=== PATIENT | male | born 1985 | race Caucasian/White ===

== ENCOUNTER 2016-06-18 20:44 | Observation (INO) | payer MEDICAID, OTHER ==
[~2016-06-18] VITALS: Ht 177.8 cm; Wt 85.3 kg
[~2016-06-18 20:44] MED LIST: ACHD5005 PO; AGM875T PO; AMOX500C2 PO; CEPH-38 PO; CLN.1T PO; CYCL10TA9 PO; DICL50TA4 PO; DOXY100C2 PO; DULO60CA6 PO; GABA-486 PO; GABA-488 PO; GABA300C PO; GABA600T2 PO; GABA800T PO; GABA800T2 PO; HUM100VI8; HYDR-757 PO; HYDR118S10 PO; INSASP10V SC; INSASP10V SQ; INSU100C; INSU100I14 SQ; INSU100V13 SC; INSU100V5 SQ; INSU100V6; INSU100V6 SQ; LEVE1U SQ; LEVO750T9 PO; LISI2.5T PO; METF-380 PO; MRTZ15T PO; MTF500T; MTF500T PO; NAPR-243 PO; NAPR500T PO; NAPR500T3 PO; NAPR550T PO; Oseltamivir Phosphate PO; POLY119P5 PO; SULF1TAB35 PO; SULF1TAB38 PO; TRAM-21 PO
--- OUTSIDE RECORDS SUMMARY | 2016-06-18 20:51 | XMS REPORT | Continuity of Care Document ---
Author Author Interface Organization Interface Address Unknown Phone Unavailable Problems Problem Status Onset Date Classification Date Reported Comments Source No data available for this section Problem 05/07/2016 spotflux Medications Medication Details Route Status Patient Instructions Ordering Provider Order Date Source Allergies, Adverse Reactions, Alerts Substance Category Reaction Severity Reaction type Status Date Reported Comments Source Tramadol Assertion Drug allergy [facility]. Immunizations Immunization Date Given Site Status Last Updated Comments Source No data available for this section No data available for this section [facility]. Results Order Name Results Value Reference Range Date Interpretation Comments Source Vital Signs Vital Sign Value Date Comments Source Encounters Location Location Details Encounter Type Encounter Number Reason For Visit Attending Provider ADM Date DC Date Status Source [facility] [id number] Emergency [id number] Madyson Carias 05/02/2016 Active [facility], [facility], [facility]. Emergency [id number] Gwendolyn Atkinson 05/02/2016 05/04/2016 [facility] Procedures Procedure Code Date Perfomer Comments Source No data available for this section [facility].
[2016-06-18] MEDS ORDERED: NS IV 1000 ML 1,000 ML IV SCH (21:30)
--- NOTE | 2016-06-18 21:35 | ED Abdominal Pain ---
General Chief Complaint: Abdominal/GI Problems Stated Complaint: DIARRHEA WITH BLOOD, FEVER Nursing Triage Note: PT TO ED 6 W/ C/O ABD PAIN ONSET X2-3 DAYS. REPORTS HAD BLOODY DIARRHEA X3 DAYS AGO ET HAS NOT HAD A BM SINCE. ALSO C/O N/V. Sepsis Screen: No Definite Risk Source of Information: Patient Exam Limitations: No Limitations History of Present Illness Time Seen By Provider: 21:34 Initial Comments To ER with reports of left-sided abdominal pain for 2-3 days. 2 days ago he finished a 2 day episode of bloody diarrhea. He's had no bowel movement since then. He is also had nausea and vomiting. He is an insulin-requiring diabetic but has not been checking his blood sugars and has only been giving himself insulin intermittently. Timing/Duration: 3-4 Days Severity/Quality: Cramping Location: LUQ, LLQ Radiation: No Radiation Activities at Onset: None Associated Symptoms: Nausea/Vomiting Allergies and Home Medications Allergies Coded Allergies: tramadol (Verified Adverse Reaction, Mild, N/V, 12/21/14) Home Medications Cyclobenzaprine HCl 10 Mg Tablet #30 10 MG PO Q8H PRN PRN back pain Prescribed by: YAMILETH CORMIER on 02/27/16 1230 Diclofenac Potassium 50 Mg Tablet #30 50 MG PO Q6H PRN PRN PAIN Prescribed by: YAMILETH CORMIER on 02/27/16 1230 Gabapentin 800 Mg Tablet 800 MG PO TID (Reported) Insulin Aspart 300 Units/3 Ml Solution #1 20 UNITS SQ AC WILL HOLD IF BS IS 140 OR BELOW Prescribed by: WESTON DOTY on 02/07/16 1408 Insulin Detemir 100 U/Ml Vial 42 UNITS SQ HS (Reported) Naproxen 500 Mg Tablet 500 MG PO BID PRN PRN PAIN (Reported) Polyethylene Glycol 3350 119 Gm Powder #1 17 GM PO HS Prescribed by: TOAN HERNADEZ on 03/04/16 6857 Review of Systems Constitutional: see HPI EENTM: No Symptoms Reported Respiratory: No Symptoms Reported Gastrointestinal: See HPI Abdominal Pain Diarrhea Nausea Vomiting Genitourinary: No Symptoms Reported Musculoskeletal: no symptoms reported Skin: no symptoms reported Psychiatric/Neurological: No Symptoms Reported Past Butpwun-Ajzkeh-Sxlskn Hx Patient Social History Alcohol Use: Denies Use Recreational Drug Use: Yes (MARIJUANA, METH) Drug of Choice: WEED- DENIES USING ANYTHING OTHER THAN WEED AT THIS TIME Smoking Status: Current Everyday Smoker Type Used: Cigarettes Former Smoker/When Quit: Recent Foreign Travel: No Contact w/Someone Who Travel: No Recent Infectious Disease Expo: No Recent Hopitalizations: No Physical Abuse Screen: No Sexual Abuse: No Immunizations Up To Date Tetanus Booster (TDap): Unknown Date of Pneumonia Vaccine: Aug 27, 2011 Date of Influenza Vaccine: May 21, 2014 Seasonal Allergies Seasonal Allergies: No Surgeries HX Surgeries: No Respiratory Hx Respiratory Disorders: No Cardiovascular Hx Cardiac Disorders: Yes Cardiac Disorders: Hypertension Neurological Hx Neurological Disorders: Yes Neurological Disorders: Neuropathy Reproductive System Hx Reproductive Disorders: No Sexually Transmitted Disease: No HIV/AIDS: No Genitourinary Hx Genitourinary Disorders: No (HAS INFREQUENT URINATION) Gastrointestinal Hx Gastrointestinal Disorders: Yes (ABD SWELLING, ELEVATED LIVER ENZYMES) Musculoskeletal Hx Musculoskeletal Disorders: Yes Musculoskeletal Disorders: Arthritis, Scoliosis, Chronic Back Pain Endocrine Hx Endocrine Disorders: Yes (EXTREME NON-COMPLIANCE, MULTIPLE EPISODES OF DKA) Endocrine Disorders: Diabetes, Insulin dep HEENT HX ENT Disorders: Yes (POOR DENTITION, DENTAL ABSCESSES) Hearing Impairment: Denies Cancer Hx Cancer: No Psychosocial Hx Psychiatric Problems: Yes (POLYSUBSTANCE ABUSE) Behavioral Health Disorders: Depression Integumentary HX Skin/Integumentary Disorder: No Blood Transfusions Hx Blood Disorders: No Adverse Reaction to a Blood Tr: No Family Medical History Significant Family History: No Pertinent Family Hx Family Medial History: Alcoholism 19 FATHER G8 BROTHER Congenital heart disease 19 FATHER Family history: Cardiovascular disease 19 FATHER, Onset:40's - 50 Family history: Diabetes mellitus 19 MOTHER Family history: Hypertension 19 FATHER Heart disease 19 FATHER History of - respiratory disease 19 FATHER History of drug abuse 19 MOTHER Hypercholesterolemia 19 FATHER Myocardial infarction 19 FATHER Seizure disorder 19 FATHER No Family History of: Abdominal aortic aneurysm Markos's disease Cancer Congestive heart failure Cystic fibrosis Dementia Dysphagia Family history: Allergy Family history: Alzheimer's disease Family history: Arthritis Family history: Asthma Family history: Breast disease Family history: Coronary thrombosis Family history: Gastrointestinal disease Family history: Glaucoma Family history: Osteoporosis Family history: Thyroid disorder Headache Hearing loss Hereditary disease History of - anemia History of - disorder Human immunodeficiency virus (HIV) seropositivity Infertile Kidney disease Malignant neoplasm of lung Parkinson's disease Prostate cancer Psychotic disorder Stroke Tuberculosis Visual impairment Physical Exam Vital Signs VS - Last 72 Hours, by Label 06/18/16 21:15 Temp 98.3 Pulse 112 Resp 20 B/P 128/92 Pulse Ox 98 O2 Delivery Room Air Capillary Refill : Less Than 3 Seconds General Appearance: WD/WN no apparent distress HEENT: PERRL/EOMI normal ENT inspection Neck: non-tender full range of motion Respiratory: no respiratory distress no accessory muscle use Gastrointestinal: normal bowel sounds non tender soft Extremities: normal range of motion non-tender Neurologic/Psychiatric: alert normal mood/affect oriented x 3 Skin: normal color warm/dry Progress/Results/Core Measures Results/Orders Lab Results Laboratory Tests Test 06/18/16 21:31 06/18/16 21:33 06/18/16 21:53 Range/Units Alanine Aminotransferase (ALT/SGPT) 19 0-55 U/L Albumin 3.6 3.2-4.5 G/DL Alkaline Phosphatase 106 40-136 U/L Anion Gap 18 H 5-14 MMOL/L Aspartate Amino Transf (AST/SGOT) 11 5-34 U/L BUN/Creatinine Ratio 11 Basophils # (Auto) 0.0 0.0-0.1 10^3/uL Basophils (%) (Auto) 0 0-10 % Blood Urea Nitrogen 16 7-18 MG/DL Calcium Level 8.3 L 8.5-10.1 MG/DL Carbon Dioxide Level 15 L 21-32 MMOL/L Chloride Level 96 L 98-107 MMOL/L Creatinine 1.44 H 0.60-1.30 MG/DL Eosinophils # (Auto) 0.1 0.0-0.3 10^3/uL Eosinophils (%) (Auto) 1 0-10 % Estimat Glomerular Filtration Rate 58 Glucose Level 694 *H 70-105 MG/DL Hematocrit 38 L 40-54 % Hemoglobin 13.3 13.3-17.7 G/DL Lymphocytes # (Auto) 1.7 1.0-4.0 X 10^3 Lymphocytes (%) (Auto) 33 12-44 % Mean Corpuscular Hemoglobin 29 25-34 PG Mean Corpuscular Hemoglobin Concent 36 32-36 G/DL Mean Corpuscular Volume 81 80-99 FL Mean Platelet Volume 9.3 7.4-10.4 FL Monocytes # (Auto) 0.5 0.0-1.0 X 10^3 Monocytes (%) (Auto) 10 0-12 % Neutrophils # (Auto) 2.8 1.8-7.8 X 10^3 Neutrophils (%) (Auto) 56 42-75 % Platelet Count 266 130-400 10^3/uL Potassium Level 4.5 3.6-5.0 MMOL/L Red Blood Count 4.63 4.35-5.85 10^6/uL Red Cell Distribution Width 13.1 10.0-14.5 % Sodium Level 129 L 135-145 MMOL/L Total Bilirubin 0.5 0.1-1.0 MG/DL Total Protein 5.7 L 6.4-8.2 G/DL White Blood Count 5.1 4.3-11.0 10^3/uL Glucometer > 600 *H 70-110 MG/DL Ur Tricyclic Antidepressants Screen NEGATIVE NEGATIVE Urine Amphetamines Screen NEGATIVE NEGATIVE Urine Bacteria NONE /HPF Urine Barbiturates Screen NEGATIVE NEGATIVE Urine Benzodiazepines Screen NEGATIVE NEGATIVE Urine Bilirubin NEGATIVE NEGATIVE Urine Cannabinoids Screen NEGATIVE NEGATIVE Urine Casts NONE /LPF Urine Clarity SLIGHTLY CLOUDY Urine Cocaine Screen NEGATIVE NEGATIVE Urine Color YELLOW Urine Crystals NONE /LPF Urine Culture Indicated NO Urine Glucose (UA) 4+ H NEGATIVE Urine Ketones 4+ H NEGATIVE Urine Leukocyte Esterase NEGATIVE NEGATIVE Urine Methadone Screen NEGATIVE NEGATIVE Urine Methamphetamines Screen POSITIVE H NEGATIVE Urine Mucus NEGATIVE /LPF Urine Nitrite NEGATIVE NEGATIVE Urine Opiates Screen NEGATIVE NEGATIVE Urine Oxycodone Screen NEGATIVE NEGATIVE Urine Phencyclidine Screen NEGATIVE NEGATIVE Urine Propoxyphene Screen NEGATIVE NEGATIVE Urine Protein NEGATIVE NEGATIVE Urine RBC NONE /HPF Urine RBC (Auto) NEGATIVE NEGATIVE Urine Specific [place] 1.010 L 1.016-1.022 Urine Squamous Epithelial Cells RARE /HPF Urine Urobilinogen NORMAL NORMAL MG/DL Urine WBC NONE /HPF Urine pH 5 5-9 My Orders Orders-ZACHERY BAKER [employer] Cbc With Automated Diff (06/18/16 21:27) Comprehensive Metabolic Panel (06/18/16 21:27) Saline Lock/Iv-Start (06/18/16 21:27) Ns Iv 1000 Ml (Sodium Chloride 0.9%) (06/18/16 21:30) Ct Abdomen/Pelvis W (06/18/16 21:33) Insulin (Regular) Human (Humulin R (Per (06/18/16 21:45) Ua Culture If Indicated (06/18/16 21:56) Drug Screen Stat (Urine) (06/18/16 21:56) Medications Given in ED Current Medications Medications Dose Ordered Sig/Fer Route Start Time Stop Time Status Last Admin Dose Admin Insulin Human Regular 12 unit ONCE ONCE IV 06/18/16 21:45 06/18/16 21:46 DC 06/18/16 21:41 12 UNIT Iohexol 100 ml ONCE ONCE IV 06/18/16 22:00 06/18/16 22:01 UNV 06/18/16 22:00 100 ML Sodium Chloride 80 ml ONCE ONCE IV 06/18/16 22:00 06/18/16 22:01 UNV 06/18/16 21:59 80 ML Vital Signs/I&O Vital Sign - Last 12Hours 06/18/16 21:15 Temp 98.3 Pulse 112 Resp 20 B/P 128/92 Pulse Ox 98 O2 Delivery Room Air Blood Pressure Mean: 104 Departure Communication Time/Spoke to Admitting Phy: 22:37 Communication I spoke with Dr. Zaida Vee. We'll admit the patient to ICU DKA protocol. Progress Notes After reviewing his distended stomach with no food intake for quite some time I would strongly suspect gastroparesis secondary to diabetes which is not managed. He is requesting pain medication at this time which should be avoided given his recent methamphetamine use and suspect gastroparesis . Impression Impression: Primary Impression: Diabetic ketoacidosis Qualified Code: E13.10 - Other specified diabetes mellitus with ketoacidosis without coma Additional Impressions: Non compliance with medical treatment Illicit drug use Disposition: ADMITTED INPATIENT Condition: Stable Decision to Admit Reason: Admit from ER (General) Decision to Admit/Date: Jun 18, 2016 Time/Decision to Admit Time: 22:19 Departure-Patient Inst. Referrals: [facility] (PCP/Family) Primary Care Physician ZACHERY BAKER APRN Jun 18, 2016 21:35
[2016-06-18] MEDS ORDERED: inSUlin (REGULAR) HUMAN 1 UNIT/0.01 ML (CHARGE PER UNIT) IV ONE (21:45)
[2016-06-18 21:46] LABS: BASOPHILS % (AUTO) 0 % (0-10); EOSINOPHILS # (AUTO) 0.1 10^3/uL (0.0-0.3); EOSINOPHILS % (AUTO) 1 % (0-10); LYMPHOCYTES # (AUTO) 1.7 X 10^3 (1.0-4.0); LYMPHOCYTES % (AUTO) 33 % (12-44); MEAN CORPUSCULAR HEMOGLOBIN 29 PG (25-34); MEAN CORPUSCULAR HGB CONC 36 G/DL (32-36); MEAN CORPUSCULAR VOLUME 81 FL (80-99); MEAN PLATELET VOLUME 9.3 FL (7.4-10.4); MONOCYTES # (AUTO) 0.5 X 10^3 (0.0-1.0); MONOCYTES % (AUTO) 10 % (0-12); NEUTROPHILS # (AUTO) 2.8 X 10^3 (1.8-7.8); NEUTROPHILS % (AUTO) 56 % (42-75); PLATELET COUNT 266 10^3/uL (130-400); RED BLOOD COUNT 4.63 10^6/uL (4.35-5.85); RED CELL DISTRIBUTION WIDTH 13.1 % (10.0-14.5); WHITE BLOOD COUNT 5.1 10^3/uL (4.3-11.0)
[2016-06-18] MEDS ORDERED: NS 100 ML (IVPB) BAG IV ONE (22:00)
[2016-06-18] MEDS ORDERED: IOHEXOL 350 MG/ML 100 ML (OMNIPAQUE 350) VIAL IV ONE (22:00)
[2016-06-18 22:03] LABS: BILIRUBIN,URINE NEGATIVE (NEGATIVE); KETONES,URINE 4+ (NEGATIVE); LEUKOCYTE ESTERASE ,URINE NEGATIVE (NEGATIVE); NITRITE,URINE NEGATIVE (NEGATIVE); PH,URINE 5 (5-9); PROTEIN,URINE NEGATIVE (NEGATIVE); UROBILINOGEN,URINE NORMAL (NORMAL)
[2016-06-18 22:05] LABS: ALBUMIN 3.6 G/DL (3.2-4.5); BILIRUBIN,TOTAL 0.5 MG/DL (0.1-1.0); CALCIUM 8.3 MG/DL (8.5-10.1); CREATININE SERUM 1.44 MG/DL (0.60-1.30); POTASSIUM 4.5 MMOL/L (3.6-5.0); TOTAL PROTEIN 5.7 G/DL (6.4-8.2)
[2016-06-18 22:14] LABS: SQUAMOUS EPITHELIAL CELL,UR RARE /HPF
[2016-06-18] MEDS ORDERED: DEXTROSE 10% IV SOLUTION 1,000 ML IV SCH (23:45)
[2016-06-18] MEDS ORDERED: 1/2 NS W/KCL 20 MEQ/L 1,000 ML IV SCH (23:45)
[2016-06-18] MEDS ORDERED: ACETAMINOPHEN 500 MG TAB (TYLENOL) PO PRN (23:45)
[2016-06-18] MEDS ORDERED: D5 1/2 NS W/KCL 20 MEQ/L 1,000 ML IV SCH (23:45)
[2016-06-18] MEDS ORDERED: REGULAR inSUlin DRIP 250 UNITS/NS 250 ML IV SCH ×2 (23:45)
[2016-06-19] VITALS (18 sets, daily range): BP systolic 93–135; BP diastolic 62–92
[2016-06-19] MEDS ORDERED: NS (IVPB) 100 ML ONE (00:16)
[2016-06-19] MEDS ORDERED: inSUlin (REGULAR) HUMAN 1 UNIT/0.01 ML (CHARGE PER UNIT) ONE ×2 (00:17→08:13)
[2016-06-19] MEDS: KETOROLAC 30 MG/ML VIAL IV PRN ×3 (00:33→15:21)
[2016-06-19 01:16] LABS: ANION GAP 14 MMOL/L (5-14); BLOOD UREA NITROGEN 14 MG/DL (7-18); BUN/CREATININE RATIO 13; CALCIUM 8.1 MG/DL (8.5-10.1); CARBON DIOXIDE 18 MMOL/L (21-32); CHLORIDE 100 MMOL/L (98-107); CREATININE SERUM 1.06 MG/DL (0.60-1.30); GFR ESTIMATED > 60; POTASSIUM 4.1 MMOL/L (3.6-5.0); SODIUM 132 MMOL/L (135-145)
[2016-06-19 01:24] LABS: GLUCOSE 507 MG/DL (70-105)
[2016-06-19] MEDS ORDERED: PREG150C PO (02:29)
[2016-06-19 03:03] LABS: BASOPHILS % (AUTO) 1 % (0-10); EOSINOPHILS # (AUTO) 0.1 10^3/uL (0.0-0.3); EOSINOPHILS % (AUTO) 2 % (0-10); LYMPHOCYTES # (AUTO) 2.4 X 10^3 (1.0-4.0); LYMPHOCYTES % (AUTO) 46 % (12-44); MEAN CORPUSCULAR HEMOGLOBIN 29 PG (25-34); MEAN CORPUSCULAR HGB CONC 36 G/DL (32-36); MEAN CORPUSCULAR VOLUME 81 FL (80-99); MONOCYTES # (AUTO) 0.4 X 10^3 (0.0-1.0); MONOCYTES % (AUTO) 8 % (0-12); NEUTROPHILS # (AUTO) 2.2 X 10^3 (1.8-7.8); NEUTROPHILS % (AUTO) 43 % (42-75); PLATELET COUNT 241 10^3/uL (130-400); RED BLOOD COUNT 4.31 10^6/uL (4.35-5.85); WHITE BLOOD COUNT 5.1 10^3/uL (4.3-11.0)
[2016-06-19 03:29] LABS: ANION GAP 12 MMOL/L (5-14); BLOOD UREA NITROGEN 14 MG/DL (7-18); BUN/CREATININE RATIO 14; CARBON DIOXIDE 18 MMOL/L (21-32); CHLORIDE 104 MMOL/L (98-107); CREATININE SERUM 1.01 MG/DL (0.60-1.30); GFR ESTIMATED > 60; GLUCOSE 374 MG/DL (70-105); MAGNESIUM 1.8 MG/DL (1.8-2.4); PHOSPHORUS 3.5 MG/DL (2.3-4.7); SODIUM 134 MMOL/L (135-145)
[2016-06-19] MEDS ORDERED: KCL 20 MEQ TAB (K-DUR) PO SCH (06:00)
[2016-06-19] MEDS ORDERED: MAGNESIUM 1 GM/100 ML IVPB 100 ML IV SCH (06:00)
[2016-06-19] MEDS ORDERED: POTASSIUM CL 10MEQ/50ML IVPB 50 ML IV SCH (06:00)
[2016-06-19] MEDS ORDERED: FLU TRIvalent (5 YOA+) 2016-17 (AFLURIA) 0.5 ML IM ONE (07:00)
[2016-06-19 07:05] LABS: ANION GAP 7 MMOL/L (5-14); BLOOD UREA NITROGEN 13 MG/DL (7-18); BUN/CREATININE RATIO 17; CALCIUM 8.3 MG/DL (8.5-10.1); CARBON DIOXIDE 23 MMOL/L (21-32); CHLORIDE 108 MMOL/L (98-107); CREATININE SERUM 0.78 MG/DL (0.60-1.30); GFR ESTIMATED > 60; GLUCOSE 160 MG/DL (70-105); POTASSIUM 3.6 MMOL/L (3.6-5.0); SODIUM 138 MMOL/L (135-145)
--- NOTE | 2016-06-19 08:00 | Diagnostic Imaging Report ---
PROCEDURE: CT abdomen and pelvis with contrast. TECHNIQUE: Multiple contiguous axial images were obtained through the abdomen and pelvis after administration of intravenous contrast. INDICATION: Bloody stools. COMPARISON: None available. FINDINGS: There are clustered tree-in-bud centrilobular nodules in the right lower lobe, which are likely infectious in etiology. There is also likely additional centrilobular nodules in the right middle lobe which are incompletely imaged. No pericardial or pleural effusion. No free intraperitoneal air or fluid. The liver, gallbladder, and spleen are normal. The adrenals and pancreas are also normal. Kidneys enhance symmetrically without suspicious mass lesion or obstructive uropathy. Normal ureters and urinary bladder. Prostate is not enlarged. The stomach is distended with fluid and food debris. No wall thickening. There is mild circumferential prominence of the small bowel wall, especially proximally. Majority of the small bowel loops are fluid filled. The cecum and ascending colon are also fluid filled without wall thickening. The transverse, descending, and rectosigmoid colon are stool filled without discrete wall thickening. No pericolonic inflammatory changes to suggest colitis. The appendix is not seen with certainty, although there are no definitive right lower quadrant inflammatory changes to indicate appendicitis. Normal-caliber abdominal aorta. There are numerous subcentimeter mesenteric lymph nodes with mild edema-like signal in the mesenteric root, likely reactive in nature. No enlarged abdominal or pelvic lymph nodes by size criteria. No concerning osseous lesions. IMPRESSION: 1. Findings are most compatible with enteritis. No bowel obstruction or evidence of active colitis. 2. Probable infectious bronchiolitis involving the right lung base. Dictated by: Dictated on workstation # [id number]
[2016-06-19] MEDS ORDERED: inSUlin (REGULAR) HUMAN 1 UNIT/0.01 ML (CHARGE PER UNIT) SC NR (08:18)
--- NOTE | 2016-06-19 08:32 | Diagnostic Imaging Report ---
Portable upright radiograph of the chest. COMPARISON: 03/04/2016. INDICATION: ICU management. FINDINGS: There is slight prominence of the interstitial markings in the lung bases with no focal consolidation. The heart size is normal. No effusion or pneumothorax. Mediastinum and rossy appear unremarkable. IMPRESSION: Prominence of the interstitial markings in the lung bases could be from incomplete lung expansion or less likely interstitial pneumonia. Dictated by: Dictated on workstation # [id number]
[2016-06-19] MEDS ORDERED: INSU100I14 SQ (09:09)
[2016-06-19] MEDS ORDERED: INSU100I10 SQ (09:09)
[2016-06-19] MEDS ORDERED: ACETAMINOPHEN 325 MG TABLET/CAPLET (TYLENOL) PO PRN (09:13)
[2016-06-19] MEDS ORDERED: CATHETER FLUSH 10 ML SYR IV PRN (09:15)
[2016-06-19] MEDS: inSUlin DETERMIR 1 UNIT/0.01 ML (LEVEMIR) CHARGE PER UNIT SQ SCH ×2 (11:41→21:34)
[2016-06-19] MEDS: inSUlin ASPART (NovoLOG) 1 UNIT/0.01 ML (CHARGE PER UNIT) SC SCH ×2 (11:48→16:16)
[2016-06-19] MEDS: DOXYCYCLINE 100 MG (VIBRAMYCIN) TABLET PO SCH ×2 (12:04→16:17)
[2016-06-19] MEDS: POTASSIUM CL 10MEQ/50ML IVPB X 4 (TOTAL 40 MEQ) IV SCH ×2 (14:56→14:57)
[2016-06-19 15:19] LABS: ANION GAP 3 MMOL/L (5-14); BLOOD UREA NITROGEN 13 MG/DL (7-18); BUN/CREATININE RATIO 18; CALCIUM 8.4 MG/DL (8.5-10.1); CARBON DIOXIDE 26 MMOL/L (21-32); CHLORIDE 108 MMOL/L (98-107); CREATININE SERUM 0.74 MG/DL (0.60-1.30); GFR ESTIMATED > 60; GLUCOSE 103 MG/DL (70-105); SODIUM 137 MMOL/L (135-145)
[2016-06-19] MEDS: ONDANSETRON 4 MG/2 ML (SDV) Z0FRAN IV PRN (20:39)
[2016-06-19] MEDS ORDERED: [UNRECOGNIZED DRUG - OTHER] SQ SCH (21:00)
[2016-06-19] MEDS ORDERED: INSULIN GLARGINE HUM REC ANLOG 42 UNIT SQ SCH (21:00)
--- NOTE | 2016-06-19 21:11 | History & Physicial (CHS) ---
HPI History of Present Illness: Patient came to ER after a few days of feeling "sick". On further questioning, he notes he was nauseated and had diarrhea which appeared be bloody for a few days, then has not had a bowel movement in about 3 days. He has upper abdominal pain. He has not had known fever, but did feel chilled. He has also been coughing for a few days. He states he has chronic shortness of breath. He has not been taking his insulin regularly and states he has not been eating well either while he has been ill. He also admits to relapsing into methamphetamine use a couple of weeks ago due to a bad break up. Date seen by provider: Jun 19, 2016 Time seen by provider: 09:00 Attending Physician Zaida Vee MD PCP [facility] – [place], [place],[facility] Date of Admission Jun 18, 2016 at 11:22 pm Home Medications Home Medications Reviewed patient Home Medication Reconciliation Form Allergies Coded Allergies: tramadol (Verified Adverse Reaction, Mild, N/V, 12/21/14) [id number] Hx Patient Social History Alcohol Use: Denies Use Recreational Drug Use: Yes (MARIJUANA, METH) Smoking Status: Current Everyday Smoker Former smoker/When Quit: Type Used: Cigarettes Recent Foreign Travel: No Contact w/other who traveled: No Recent Hopitalizations: No Recent Infectious Disease Expo: No Physical Abuse Screen: No Sexual Abuse: No Immunizations Up To Date Tetanus Booster (TDap): Unknown Date of Pneumonia Vaccine: Aug 27, 2011 Date of Influenza Vaccine: May 21, 2014 Past Medical History Past Medical History 1. DM, insulin requiring, not controlled, not compliant 2. Hypertension- was previously prescribed medications but never filled 3. Alcoholism- with previous heavy daily alcohol use- reports stopped drinking 4. 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 Tobaccoism 6. GERD 7. Non-compliance- pt. is chronically non-compliant with his medications and follow up 8. Peipheral Neuropathy Past Surgical History 1. None Family Medical History Significant Family History: No Pertinent Family Hx, Heart Disease, Diabetes, Hypertension, Lung Disease, Psychiatric Problems Review of Systems (CHC) Constitutional: see HPI EENTM: no symptoms reported Respiratory: see HPI Cardiovascular: No chest pain Gastrointestinal: see HPI Genitourinary: no symptoms reported Musculoskeletal: no symptoms reported Skin: no symptoms reported Psychiatric/Neurological: No Symptoms Reported Reviewed Test Results Reviewed Test Results Lab Laboratory Tests Test 06/18/16 21:31 06/18/16 21:33 06/18/16 21:53 06/18/16 22:32 Range/Units Alanine Aminotransferase (ALT/SGPT) 19 0-55 U/L Albumin 3.6 3.2-4.5 G/DL Alkaline Phosphatase 106 40-136 U/L Anion Gap 18 H 5-14 MMOL/L Aspartate Amino Transf (AST/SGOT) 11 5-34 U/L BUN/Creatinine Ratio 11 Basophils # (Auto) 0.0 0.0-0.1 10^3/uL Basophils (%) (Auto) 0 0-10 % Blood Urea Nitrogen 16 7-18 MG/DL Calcium Level 8.3 L 8.5-10.1 MG/DL Carbon Dioxide Level 15 L 21-32 MMOL/L Chloride Level 96 L 98-107 MMOL/L Creatinine 1.44 H 0.60-1.30 MG/DL Eosinophils # (Auto) 0.1 0.0-0.3 10^3/uL Eosinophils (%) (Auto) 1 0-10 % Estimat Glomerular Filtration Rate 58 Glucose Level 694 *H 70-105 MG/DL Hematocrit 38 L 40-54 % Hemoglobin 13.3 13.3-17.7 G/DL Lymphocytes # (Auto) 1.7 1.0-4.0 X 10^3 Lymphocytes (%) (Auto) 33 12-44 % Mean Corpuscular Hemoglobin 29 25-34 PG Mean Corpuscular Hemoglobin Concent 36 32-36 G/DL Mean Corpuscular Volume 81 80-99 FL Mean Platelet Volume 9.3 7.4-10.4 FL Monocytes # (Auto) 0.5 0.0-1.0 X 10^3 Monocytes (%) (Auto) 10 0-12 % Neutrophils # (Auto) 2.8 1.8-7.8 X 10^3 Neutrophils (%) (Auto) 56 42-75 % Platelet Count 266 130-400 10^3/uL Potassium Level 4.5 3.6-5.0 MMOL/L Red Blood Count 4.63 4.35-5.85 10^6/uL Red Cell Distribution Width 13.1 10.0-14.5 % Sodium Level 129 L 135-145 MMOL/L Total Bilirubin 0.5 0.1-1.0 MG/DL Total Protein 5.7 L 6.4-8.2 G/DL White Blood Count 5.1 4.3-11.0 10^3/uL Glucometer > 600 *H 472 *H 70-110 MG/DL Ur Tricyclic Antidepressants Screen NEGATIVE NEGATIVE Urine Amphetamines Screen NEGATIVE NEGATIVE Urine Bacteria NONE /HPF Urine Barbiturates Screen NEGATIVE NEGATIVE Urine Benzodiazepines Screen NEGATIVE NEGATIVE Urine Bilirubin NEGATIVE NEGATIVE Urine Cannabinoids Screen NEGATIVE NEGATIVE Urine Casts NONE /LPF Urine Clarity SLIGHTLY CLOUDY Urine Cocaine Screen NEGATIVE NEGATIVE Urine Color YELLOW Urine Crystals NONE /LPF Urine Culture Indicated NO Urine Glucose (UA) 4+ H NEGATIVE Urine Ketones 4+ H NEGATIVE Urine Leukocyte Esterase NEGATIVE NEGATIVE Urine Methadone Screen NEGATIVE NEGATIVE Urine Methamphetamines Screen POSITIVE H NEGATIVE Urine Mucus NEGATIVE /LPF Urine Nitrite NEGATIVE NEGATIVE Urine Opiates Screen NEGATIVE NEGATIVE Urine Oxycodone Screen NEGATIVE NEGATIVE Urine Phencyclidine Screen NEGATIVE NEGATIVE Urine Propoxyphene Screen NEGATIVE NEGATIVE Urine Protein NEGATIVE NEGATIVE Urine RBC NONE /HPF Urine RBC (Auto) NEGATIVE NEGATIVE Urine Specific [place] 1.010 L 1.016-1.022 Urine Squamous Epithelial Cells RARE /HPF Urine Urobilinogen NORMAL NORMAL MG/DL Urine WBC NONE /HPF Urine pH 5 5-9 Test 06/19/16 00:38 06/19/16 00:55 06/19/16 02:05 06/19/16 02:55 Range/Units Glucometer 476 *H 459 *H 70-110 MG/DL Anion Gap 14 12 5-14 MMOL/L BUN/Creatinine Ratio 13 14 Blood Urea Nitrogen 14 14 7-18 MG/DL Calcium Level 8.1 L 8.0 L 8.5-10.1 MG/DL Carbon Dioxide Level 18 L 18 L 21-32 MMOL/L Chloride Level 100 104 98-107 MMOL/L Creatinine 1.06 1.01 0.60-1.30 MG/DL Estimat Glomerular Filtration Rate > 60 > 60 Glucose Level 507 *H 374 H 70-105 MG/DL Potassium Level 4.1 4.0 3.6-5.0 MMOL/L Sodium Level 132 L 134 L 135-145 MMOL/L Basophils # (Auto) 0.0 0.0-0.1 10^3/uL Basophils (%) (Auto) 1 0-10 % Eosinophils # (Auto) 0.1 0.0-0.3 10^3/uL Eosinophils (%) (Auto) 2 0-10 % Hematocrit 35 L 40-54 % Hemoglobin 12.5 L 13.3-17.7 G/DL Lymphocytes # (Auto) 2.4 1.0-4.0 X 10^3 Lymphocytes (%) (Auto) 46 H 12-44 % Magnesium Level 1.8 1.8-2.4 MG/DL Mean Corpuscular Hemoglobin 29 25-34 PG Mean Corpuscular Hemoglobin Concent 36 32-36 G/DL Mean Corpuscular Volume 81 80-99 FL Mean Platelet Volume 9.0 7.4-10.4 FL Monocytes # (Auto) 0.4 0.0-1.0 X 10^3 Monocytes (%) (Auto) 8 0-12 % Neutrophils # (Auto) 2.2 1.8-7.8 X 10^3 Neutrophils (%) (Auto) 43 42-75 % Phosphorus Level 3.5 2.3-4.7 MG/DL Platelet Count 241 130-400 10^3/uL Red Blood Count 4.31 L 4.35-5.85 10^6/uL Red Cell Distribution Width 13.0 10.0-14.5 % White Blood Count 5.1 4.3-11.0 10^3/uL Test 06/19/16 04:07 06/19/16 05:07 06/19/16 06:38 06/19/16 07:59 Range/Units Glucometer 270 H 199 H 193 H 70-110 MG/DL Anion Gap 7 5-14 MMOL/L BUN/Creatinine Ratio 17 Blood Urea Nitrogen 13 7-18 MG/DL Calcium Level 8.3 L 8.5-10.1 MG/DL Carbon Dioxide Level 23 21-32 MMOL/L Chloride Level 108 H 98-107 MMOL/L Creatinine 0.78 0.60-1.30 MG/DL Estimat Glomerular Filtration Rate > 60 Glucose Level 160 H 70-105 MG/DL Potassium Level 3.6 3.6-5.0 MMOL/L Sodium Level 138 135-145 MMOL/L Test 06/19/16 09:25 06/19/16 11:39 06/19/16 13:47 06/19/16 14:54 Range/Units Glucometer 212 H 142 H 118 H 70-110 MG/DL Anion Gap 3 L 5-14 MMOL/L BUN/Creatinine Ratio 18 Blood Urea Nitrogen 13 7-18 MG/DL Calcium Level 8.4 L 8.5-10.1 MG/DL Carbon Dioxide Level 26 21-32 MMOL/L Chloride Level 108 H 98-107 MMOL/L Creatinine 0.74 0.60-1.30 MG/DL Estimat Glomerular Filtration Rate > 60 Glucose Level 103 70-105 MG/DL Potassium Level 4.0 3.6-5.0 MMOL/L Sodium Level 137 135-145 MMOL/L Test 06/19/16 15:57 06/19/16 19:16 Range/Units Glucometer 135 H 55 *L 70-110 MG/DL Radiology CT abdomen 06/18: IMPRESSION: 1. Findings are most compatible with enteritis. No bowel obstruction or evidence of active colitis. 2. Probable infectious bronchiolitis involving the right lung base. Physical Exam-(CHC) Physical Exam Vital Signs VS - Last 72 Hours, by Label 06/18/16 06/18/16 06/19/16 06/19/16 21:15 23:18 00:00 00:15 Temp 98.3 98.3 Pulse 112 97 111 Resp 20 20 B/P 128/92 Pulse Ox 98 95 96 O2 Delivery Room Air Room Air 06/19/16 06/19/16 06/19/16 06/19/16 00:33 00:45 01:00 01:03 Temp 98.3 98.3 Pulse 109 98 B/P 103/77 112/71 Pulse Ox 96 96 06/19/16 06/19/16 06/19/16 06/19/16 02:00 03:00 04:00 05:00 Pulse 101 102 99 101 B/P 112/66 106/70 109/73 110/77 Pulse Ox 97 95 97 98 O2 Delivery Room Air Room Air 06/19/16 06/19/16 06/19/16 06/19/16 06:00 07:00 08:00 08:15 Temp 96.7 Pulse 93 B/P 103/78 113/81 93/62 Pulse Ox 97 96 94 O2 Delivery Room Air Room Air Room Air 06/19/16 06/19/16 06/19/16 06/19/16 08:15 09:00 10:00 11:00 B/P 105/74 107/68 113/86 Pulse Ox 97 94 96 O2 Delivery Room Air Room Air Room Air Room Air 06/19/16 06/19/16 06/19/16 06/19/16 12:00 12:00 12:00 13:00 Temp 97.6 B/P 115/87 127/92 Pulse Ox 96 92 O2 Delivery Room Air Room Air Room Air 06/19/16 06/19/16 06/19/16 06/19/16 14:00 14:45 15:05 16:11 Temp 98.2 97.1 Pulse 98 98 Resp 20 20 B/P 109/82 135/82 134/81 Pulse Ox 98 98 98 O2 Delivery Room Air Room Air Room Air Room Air 06/19/16 20:30 Temp 98.7 Pulse 109 Resp 20 B/P 131/74 Pulse Ox 98 O2 Delivery Room Air Capillary Refill : Less Than 3 Seconds General Appearance: WD/WN no apparent distress Respiratory: lungs clear normal breath sounds Cardiovascular: regular rate, rhythm no edema no murmur Gastrointestinal: normal bowel sounds softNo distended, tenderness ( epigastric) Extremities: no pedal edema Neurologic/Psychiatric: alert normal mood/affect Skin: normal color warm/dry Assessment/Plan Assessment/Plan Admission Dx 1. Enteritis 2. Diabetic ketoacidosis 3. Hyponatremia 4. Acute kidney insufficiency 5. Substance abuse 6. Pneumonia Plan 1. Enteritis- likely viral in nature, already improved but likely led to the diabetic ketoacidosis 2. Diabetic ketoacidosis- placed on insulin drip and DKA protocol with resolution of anion gap acidosis and hyperglycemia overnight -Resume home insulin and diabetic diet. Discussed importance of using insulin as prescribed 3. Hyponatremia- due to hyperglycemia, resolved 4. Acute kidney insufficiency- resolved with IVF overnight 5. Substance abuse- discussed treatment options, he is interested in outpatient treatment through [facility] 6. Pneumonia- infiltrate noted on CT, given his recent cough will treat with doxycycline for CAP DVT ppx- SCDs Diagnosis/Problems: Clinical Quality Measures DVT/VTE Risk/Contraindication: Risk Factor Score Per Nursin RFS Level Per Nursing on Admit: 1=Low/No VTE PPX Copy Copies To 1: ADÁN HOUSER MD,CARRIE Crooks MD Jun 19, 2016 9:11 pm
[2016-06-20 00:10] VITALS: BP 135/71
[2016-06-20] MEDS: KETOROLAC 30 MG/ML VIAL IV PRN (00:48)
[2016-06-20 04:00] VITALS: BP 135/86
[2016-06-20] MEDS: inSUlin ASPART (NovoLOG) 1 UNIT/0.01 ML (CHARGE PER UNIT) SC SCH ×2 (06:00→12:29)
[2016-06-20 06:01] LABS: BASOPHILS % (AUTO) 1 % (0-10); EOSINOPHILS # (AUTO) 0.1 10^3/uL (0.0-0.3); EOSINOPHILS % (AUTO) 2 % (0-10); LYMPHOCYTES # (AUTO) 3.2 X 10^3 (1.0-4.0); LYMPHOCYTES % (AUTO) 51 % (12-44); MEAN CORPUSCULAR HGB CONC 35 G/DL (32-36); MEAN CORPUSCULAR VOLUME 81 FL (80-99); MONOCYTES # (AUTO) 0.6 X 10^3 (0.0-1.0); MONOCYTES % (AUTO) 9 % (0-12); NEUTROPHILS # (AUTO) 2.3 X 10^3 (1.8-7.8); NEUTROPHILS % (AUTO) 37 % (42-75); PLATELET COUNT 291 10^3/uL (130-400); RED BLOOD COUNT 5.65 10^6/uL (4.35-5.85); RED CELL DISTRIBUTION WIDTH 13.7 % (10.0-14.5); WHITE BLOOD COUNT 6.2 10^3/uL (4.3-11.0)
[2016-06-20 06:05] LABS: MEAN CORPUSCULAR HEMOGLOBIN 28 PG (25-34)
[2016-06-20] MEDS: DOXYCYCLINE 100 MG (VIBRAMYCIN) TABLET PO SCH (06:07)
[2016-06-20 06:18] LABS: ANION GAP 11 MMOL/L (5-14); BLOOD UREA NITROGEN 20 MG/DL (7-18); BUN/CREATININE RATIO 24; CALCIUM 9.2 MG/DL (8.5-10.1); CARBON DIOXIDE 27 MMOL/L (21-32); CHLORIDE 103 MMOL/L (98-107); CREATININE SERUM 0.82 MG/DL (0.60-1.30); GFR ESTIMATED > 60; GLUCOSE 67 MG/DL (70-105); MAGNESIUM 1.7 MG/DL (1.8-2.4); PHOSPHORUS 4.7 MG/DL (2.3-4.7); POTASSIUM 3.7 MMOL/L (3.6-5.0); SODIUM 141 MMOL/L (135-145)
[2016-06-20 08:00] VITALS: BP 129/84
--- NOTE | 2016-06-20 08:35 | Diagnostic Imaging Report ---
INDICATION: Dyspnea, pneumonia. DISCUSSION: Single portable upright view of the chest was obtained, comparison 06/19/2016. Prominence of the bilateral rossy is stable and likely due to underlying vascularity though hilar adenopathy cannot be excluded. Improved aeration of the bilateral lung bases. No focal consolidation, pleural fluid, pneumothorax. Stable normal heart size. No osseous abnormality. IMPRESSION: 1. Improved aeration of the bilateral lung bases. 2. Mild prominence of the bilateral rossy appear stable from exams through 2016, though appears new from earlier exams through 2009. This could be projectional and represent normal underlying vascularity though hilar adenopathy cannot be excluded. Dictated by: Dictated on workstation # [id number]
[2016-06-20] MEDS ORDERED: DOXY100T2 PO (08:57)
--- NOTE | 2016-06-20 08:59 | Discharge Instructions ---
Discharge [facility] Discharge Medications New, Converted or Re-Newed RX: Transmitted to Pharmacy New Medications: Doxycycline Hyclate (Doxycycline Hyclate) 100 Mg Tablet 100 MG PO BID@ #20 Ref 0 TAB Continued Medications: Insulin Aspart (Novolog Flexpen) 300 Units/3 Ml Solution 20 UNITS SQ [facility] LAST DISPENSED 8 PENS (24 ML) EA Insulin Glargine,Hum.rec.anlog (Lantus Solostar) 100 Unit/1 Ml Insuln.pen 42 UNIT SQ [facility] LAST DISPENSED 10 PENS (30 ML) 03/15/16 EA Patient Instructions Goal/Follow Up Appt: Follow up with 06/[address] at [address] Rosales at [facility]. Someone will call you about substance treatment at [facility]. Patient Instructions: Go to the pharmacy at [facility] for your antibiotics, they will be vouchered. Return to The Hospital For: Fever, inability to keep down liquids, blood sugar over 500 Activity & Diet Discharge Diet: ADA Diet Activity as Tolerated: Yes Copy Copies To 1: PADMINI ROSALES MD, BETHANY N MD Jun 20, 2016 08:58
[2016-06-20] MEDS: ONDANSETRON 4 MG/2 ML (SDV) Z0FRAN IV PRN (10:41)
[2016-06-20 12:00] VITALS: BP 138/94
[2016-06-20] MEDS ORDERED: inSUlin ASPART (NovoLOG) 1 UNIT/0.01 ML (CHARGE PER UNIT) SC NR (12:00)
[2016-06-20 16:14] VITALS: BP 138/94
--- NOTE | 2016-06-21 16:03 | Discharge Summary ---
Diagnosis/Chief Complaint Date of Admission Jun 18, 2016 at 11:22 pm Date of Discharge Jun 20, 2016 at 3:30 pm Admission Diagnosis Admission Diagnosis 1. Enteritis 2. Diabetic ketoacidosis 3. Hyponatremia 4. Acute kidney insufficiency 5. Substance abuse 6. Pneumonia Discharge Diagnosis 1. Enteritis- likely viral in nature, already improved but likely led to the diabetic ketoacidosis 2. Diabetic ketoacidosis- placed on insulin drip and DKA protocol with resolution of anion gap acidosis and hyperglycemia overnight -Resume home insulin and diabetic diet. Discussed importance of using insulin as prescribed On day of d/c, note that he accepted only 1/2 of his previous evening levemir dose and then had marked hyperglycemia before lunch. Extra 10 units of NovoLog given with his scheduled 20 units and blood sugar back to 180 at time of discharge 2 hours postprandial. 3. Hyponatremia- due to hyperglycemia, resolved 4. Acute kidney insufficiency- resolved with IVF overnight 5. Substance abuse- discussed treatment options, he is interested in outpatient treatment through [facility] 6. Pneumonia- infiltrate noted on CT, given his recent cough will treat with doxycycline for CAP Chief Complaint/HPI Chief Complaint/HPI Patient came to ER after a few days of feeling "sick". On further questioning, he notes he was nauseated and had diarrhea which appeared be bloody for a few days, then has not had a bowel movement in about 3 days. He has upper abdominal pain. He has not had known fever, but did feel chilled. He has also been coughing for a few days. He states he has chronic shortness of breath. He has not been taking his insulin regularly and states he has not been eating well either while he has been ill. He also admits to relapsing into methamphetamine use a couple of weeks ago due to a bad break up. Discharge Summary-Simple/Stand Consultations Discharge Physical Examination Allergies: Coded Allergies: tramadol (Verified Adverse Reaction, Mild, N/V, 12/21/14) Vitals & I&Os Vital Sign - Last 12Hours Date Time Temp Pulse Resp B/P Pulse Ox O2 Delivery O2 Flow Rate FiO2 06/20/16 16:14 96 24 138/94 96 Room Air 06/20/16 12:00 99.0 Intake and Output 06/21/16 00:00 Intake Total 2144 ml Output Total 2600 ml Balance -456 ml General Appearance: Alert, No Acute Distress Respiratory: Clear to Auscultation, Normal Air Movement Cardiovascular: Regular Rate, No Murmurs Abdominal: Normal Bowel Sounds, Soft, Other (mild diffuse tenderness) Neuro: Normal Speech Psych/Mental Status: Mental Status NL Hospital Course See final discharge diagnosis. Labs Laboratory Tests Test 06/19/16 19:16 06/19/16 21:05 06/20/16 05:28 06/20/16 05:53 Range/Units Glucometer 55 *L 135 H 55 *L 70-110 MG/DL Anion Gap 11 5-14 MMOL/L BUN/Creatinine Ratio 24 Basophils # (Auto) 0.0 0.0-0.1 10^3/uL Basophils (%) (Auto) 1 0-10 % Blood Urea Nitrogen 20 H 7-18 MG/DL Calcium Level 9.2 8.5-10.1 MG/DL Carbon Dioxide Level 27 21-32 MMOL/L Chloride Level 103 98-107 MMOL/L Creatinine 0.82 0.60-1.30 MG/DL Eosinophils # (Auto) 0.1 0.0-0.3 10^3/uL Eosinophils (%) (Auto) 2 0-10 % Estimat Glomerular Filtration Rate > 60 Glucose Level 67 L 70-105 MG/DL Hematocrit 46 40-54 % Hemoglobin 16.1 # 13.3-17.7 G/DL Lymphocytes # (Auto) 3.2 1.0-4.0 X 10^3 Lymphocytes (%) (Auto) 51 H 12-44 % Magnesium Level 1.7 L 1.8-2.4 MG/DL Mean Corpuscular Hemoglobin 28 25-34 PG Mean Corpuscular Hemoglobin Concent 35 32-36 G/DL Mean Corpuscular Volume 81 80-99 FL Mean Platelet Volume 9.0 7.4-10.4 FL Monocytes # (Auto) 0.6 0.0-1.0 X 10^3 Monocytes (%) (Auto) 9 0-12 % Neutrophils # (Auto) 2.3 1.8-7.8 X 10^3 Neutrophils (%) (Auto) 37 L 42-75 % Phosphorus Level 4.7 2.3-4.7 MG/DL Platelet Count 291 130-400 10^3/uL Potassium Level 3.7 3.6-5.0 MMOL/L Red Blood Count 5.65 4.35-5.85 10^6/uL Red Cell Distribution Width 13.7 10.0-14.5 % Sodium Level 141 135-145 MMOL/L White Blood Count 6.2 4.3-11.0 10^3/uL Test 06/20/16 11:02 06/20/16 11:30 06/20/16 14:34 Range/Units Glucometer > 600 *H 181 H 70-110 MG/DL Glucose Level 477 *H 70-105 MG/DL Radiology Reviewed CT abdomen 06/18: IMPRESSION: 1. Findings are most compatible with enteritis. No bowel obstruction or evidence of active colitis. 2. Probable infectious bronchiolitis involving the right lung base. Discharge Instructions to patient/family Please see electonic discharge instructions given to patient. Discharge Medications Reviewed and agree with Discharge Medication list on patient's Discharge Instruction sheet Clinical Quality Measures DVT/VTE Risk/Contraindication: Risk Factor Score Per Nursin RFS Level Per Nursing on Admit: 1=Low/No VTE PPX Copy Copies To 1: PADMINI ROSALES MD, BETHANY N MD Jun 21, 2016 4:03 pm
== END 2016-06-20 08:57 | disposition home or self-care (01) ==
LOC: EDUNIT# 20:44 → ER 20:48 → UNDOADMOB 22:51 → ICU 22:51 → 4TH 06-19 14:40 → ICU 06-19 14:40
PROVIDERS: ADMIT Pediatrics; ATTEND Pediatrics
DX: K52.9 Noninfective gastroenteritis and colitis, unspecified (principal); E13.10 Other specified diabetes mellitus with ketoacidosis without coma; E87.1 Hypo-osmolality and hyponatremia; N28.9 Disorder of kidney and ureter, unspecified; F15.10 Other stimulant abuse, uncomplicated; F12.10 Cannabis abuse, uncomplicated; J18.9 Pneumonia, unspecified organism; I10 Essential (primary) hypertension; F17.210 Nicotine dependence, cigarettes, uncomplicated; Z79.4 Long term (current) use of insulin; Z91.14 Patient's other noncompliance with medication regimen
CPT/HCPCS: 36415; 71010; 74177; 80048; 80053; 80306; 81000; 82947; 82962; 83735; 84100; 85025; 87081; 96361; 96374; G0378

== ENCOUNTER 2017-12-13 15:49 | Emergency (ER) | payer MEDICAID, OTHER ==
[~2017-12-13] VITALS: Ht 177.8 cm; Wt 113.4 kg
[~2017-12-13 15:49] MED LIST changes: +DOXY100T2 PO; +INSU100I10 SQ; +NAPR-1071 PO; +NAPR-915 PO; -NAPR500T PO; -NAPR500T3 PO; +PREG150C PO
[2017-12-13] MEDS ORDERED: SULF1TAB35 PO (17:05)
--- NOTE | 2017-12-13 17:06 | ED Lower Extremity ---
General Chief Complaint: Lower Extremity Stated Complaint: L FOOT PAIN/SWELLING, NO INJ Source: patient Exam Limitations: no limitations History of Present Illness Date Seen by Provider: Dec 13, 2017 Time Seen by Provider: 17:02 Initial Comments to ER with pain and swelling to the left foot third and fourth toes. No known injury though he has neuropathy and poor sensation in his toes may have injured it and not known it. Onset: just prior to arrival Severity: moderate Pain/Injury Location: left 3rd toe Modifying Factors: Worse With Movement Allergies and Home Medications Allergies Coded Allergies: tramadol (Verified Adverse Reaction, Mild, N/V, 12/21/14) Home Medications Doxycycline Hyclate 100 Mg Tablet, 100 MG PO BID@ Prescribed by: CARRIE NELSON on 06/20/16 0857 Insulin Aspart 300 Units/3 Ml Solution, 20 UNITS SQ AC, (Reported) [facility] LAST DISPENSED 8 PENS (24 ML) Insulin Glargine,Hum.rec.anlog 100 Unit/1 Ml Insuln.pen, 42 UNIT SQ HS, ( Reported) [facility] LAST DISPENSED 10 PENS (30 ML) 03/15/16 Pregabalin 150 Mg Capsule, 150 MG PO TID Prescribed by: PADMINI ROSALES on 06/26/16 1315 Sulfamethoxazole/Trimethoprim 1 Each Tablet, 1 EACH PO BID Prescribed by: ZACHERY BAKER on 12/13/17 1705 Patient Home Medication List Home Medication List Reviewed: Yes Constitutional: see HPI EENTM: see HPI Respiratory: no symptoms reported Cardiovascular: no symptoms reported Genitourinary: no symptoms reported Musculoskeletal: see HPI Skin: no symptoms reported Psychiatric/Neurological: No Symptoms Reported Past Howuyrm-[id number]-Sqlhpg Hx Patient Social History Type Used: Cigarettes Recent Foreign Travel: No Contact w/Someone Who Travel: No Recent Hopitalizations: No Immunizations Up To Date Tetanus Booster (TDap): Unknown Date of Pneumonia Vaccine: Aug 27, 2011 Date of Influenza Vaccine: May 21, 2014 Seasonal Allergies Seasonal Allergies: No Past Medical History Surgeries: No Respiratory: Yes (copd dx by patient) COPD Currently Using CPAP: No Currently Using BIPAP: No Cardiac: Yes Hypertension Neurological: Yes Neuropathy Reproductive Disorders: No Sexually Transmitted Disease: No HIV/AIDS: No Genitourinary: Yes Kidney Infection Gastrointestinal: Yes (ABD SWELLING, ELEVATED LIVER ENZYMES) Musculoskeletal: Yes Arthritis, Scoliosis, Chronic Back Pain Endocrine: Yes (EXTREME NON-COMPLIANCE, MULTIPLE EPISODES OF DKA) Diabetes, Insulin dep Hearing Impairment: Denies Cancer: No Psychosocial: Yes (POLYSUBSTANCE ABUSE) Depression Integumentary: No Blood Disorders: No Adverse Reaction/Blood Tranf: No Family Medical History Alcoholism 19 FATHER G8 BROTHER Congenital heart disease 19 FATHER Family history: Cardiovascular disease 19 FATHER, Onset:40's - 50 Family history: Diabetes mellitus 19 MOTHER Family history: Hypertension 19 FATHER Heart disease 19 FATHER History of - respiratory disease 19 FATHER History of drug abuse 19 MOTHER Hypercholesterolemia 19 FATHER Myocardial infarction 19 FATHER Seizure disorder 19 FATHER No Family History of: Abdominal aortic aneurysm [place]'s disease Cancer Congestive heart failure Cystic fibrosis Dementia Dysphagia Family history: Allergy Family history: Alzheimer's disease Family history: Arthritis Family history: Asthma Family history: Breast disease Family history: Coronary thrombosis Family history: Gastrointestinal disease Family history: Glaucoma Family history: Osteoporosis Family history: Thyroid disorder Headache Hearing loss Hereditary disease History of - anemia History of - disorder Human immunodeficiency virus (HIV) seropositivity Infertile Kidney disease Malignant neoplasm of lung Parkinson's disease Prostate cancer Psychotic disorder Stroke Tuberculosis Visual impairment No Pertinent Family Hx, Heart Disease, Diabetes, Hypertension, Lung Disease, Psychiatric Problems Physical Exam Vital Signs Vital Signs - First Documented 12/13/17 17:03 Temp 98.2 Pulse 87 Resp 20 B/P (MAP) 152/104 (120) Pulse Ox 98 Capillary Refill : Height, Weight, BMI Height: 5'10.00" Weight: 188lbs. 0.8oz. [id number]; 27.3 BMI Method:Stated General Appearance: WD/WN, no apparent distress HEENT: PERRL/EOMI, normal ENT inspection Neck: non-tender, full range of motion Respiratory: no respiratory distress, no accessory muscle use Gastrointestinal: normal bowel sounds, non tender Hips: bilateral hip non-tender, bilateral hip normal inspection, bilateral hip normal range of motion Legs: bilateral leg non-tender, bilateral leg normal inspection, bilateral leg normal range of motion Knees: bilateral knee non-tender, bilateral knee normal inspection, bilateral knee normal range of motion Ankles: bilateral ankle non-tender, bilateral ankle normal inspection, bilateral ankle normal range of motion Feet: left foot pain, left foot soft tissue tenderness, left foot other (there is an ulcer to the lateral aspectdistal phalanx left third toe with some ecchymosis/erythema to this toe.) Neurologic/Psychiatric: alert, normal mood/affect, oriented x 3 Skin: normal color, warm/dry Progress/Results/Core Measures Results/Orders My Orders Orders - ZACHERY BAKER APRN Foot, Left, 3 Views (12/13/17 17:01) Vital Signs/I&O 12/13/17 17:03 Temp 98.2 Pulse 87 Resp 20 B/P (MAP) 152/104 (120) Pulse Ox 98 Departure Impression Primary Impression: Diabetic peripheral neuropathy Additional Impression: Diabetic ulcer of foot associated with diabetes mellitus due to underlying condition, limited to breakdown of skin Disposition: HOME, SELF-CARE Condition: Stable Departure-Patient Inst. Decision time for Depature: 17:04 Referrals: [facility] (PCP/Family) Primary Care Physician Patient Instructions: Diabetic Foot Ulcer (DC) Add. Discharge Instructions: 1. Follow-up with your doctor later next week for recheck 2. Antibiotic as directed 3.All discharge instructions reviewed with patient and/or family. Voiced understanding. Scripts Pregabalin (Lyrica) 150 Mg Capsule 150 MG PO TID, #15 CAP Prov: ZACHERY BAKER APRN 12/13/17 Sulfamethoxazole/Trimethoprim (Bactrim Ds Tablet) 1 Each Tablet 1 EACH PO BID, #14 TAB Prov: ZACHERY BAKER APRN 12/13/17 ZACHERY BAKER APRN Dec 13, 2017 17:06
--- NOTE | 2017-12-13 17:19 | Diagnostic Imaging Report ---
Indication: Left foot pain AP, oblique, lateral views of the left foot are obtained No fracture or acute bony abnormality is seen. Joint spaces are unremarkable. Impression: Negative left foot. Dictated by: Dictated on workstation # [id number]
[2017-12-13] MEDS ORDERED: PREG150C PO (17:21)
[2017-12-13 17:28] VITALS: BP 142/95
== END 2017-12-13 17:28 | disposition home or self-care (01) ==
LOC: EDUNIT# 15:49 → ER 15:51
DX: E11.40 Type 2 diabetes mellitus with diabetic neuropathy, unspecified (principal); L97.521 Non-pressure chronic ulcer of other part of left foot limited to breakdown of skin; J44.9 Chronic obstructive pulmonary disease, unspecified; I10 Essential (primary) hypertension; E11.10 Type 2 diabetes mellitus with ketoacidosis without coma; F32.9 Major depressive disorder, single episode, unspecified; Z82.49 Family history of ischemic heart disease and other diseases of the circulatory system; Z91.14 Patient's other noncompliance with medication regimen; Z87.448 Personal history of other diseases of urinary system; Z88.6 Allergy status to analgesic agent; Z79.4 Long term (current) use of insulin
CPT/HCPCS: 73630

== ENCOUNTER → 2018-02-08 | Outpatient (CLI) | payer BC ==
[~2018-02-08] MED LIST changes: +HYDR-4226 PO
--- NOTE | 2018-02-08 14:15 | Diagnostic Imaging Report ---
INDICATION: Injury to right hand AP, oblique, and lateral views of the right hand are obtained at 214 hours p.m. There is a fracture of the distal aspect of fifth metacarpal with mild volar angulation. Remaining bony structures are intact. Joint spaces are unremarkable. IMPRESSION: Acute distal fifth metacarpal fracture with mild volar angulation. Dictated by: Dictated on workstation # [id number]
== END ==
LOC: RAD 13:39
PROVIDERS: ATTEND Nurse Practitioner Family
DX: S62.336A Displaced fracture of neck of fifth metacarpal bone, right hand, initial encounter for closed fracture (principal)
CPT/HCPCS: 73130

== ENCOUNTER 2018-05-22 13:57 | Emergency (ER) | payer BC ==
[~2018-05-22] VITALS: Ht 177.8 cm; Wt 113.4 kg
[2018-05-22] MEDS ORDERED: GABA800T2 PO (14:25)
[2018-05-22] MEDS ORDERED: NS IV 1000 ML 1,000 ML IV ONE (15:12)
--- NOTE | 2018-05-22 15:19 | ED General ---
General Chief Complaint: Glucose Problems Stated Complaint: HIGH BS;WEAKNESS Nursing Triage Note: PATIENT STATES THAT HE HAS HAD BLOOD SUGARS IN THE 400S AND 500S TODAY. HE FEELS EXHAUSTED AND IS UNABLE TO BRING THE GLUCOSE LEVEL DOWN WITH HIS INSULIN. Nursing Sepsis Screen: No Definite Risk Source of Information: Patient Exam Limitations: No Limitations History of Present Illness Date Seen by Provider: May 22, 2018 Time Seen by Provider: 15:02 Initial Comments Here with report of nausea and vomiting as well as blood sugars being elevated. He missed a dose of his long-acting insulin overnight a few nights ago and has had difficulty catching up since. He has dose multiple times including today and blood sugars are now in the 200s. He feels weak and tired. Had 2 episodes of vomiting today which one was just dry heaving. Reports that he was increasingly fatigued at work today. States he feels drained. Has history of diabetic ketoacidosis in the past. Timing/Duration: 2-3 Days Severity: Moderate Modifying Factors: improves with Medication, improves with Rest Associated Systoms: No Cough, No Fever/Chills; Malaise, Nausea/Vomiting; No Shortness of Air, No Weakness Allergies and Home Medications Allergies Coded Allergies: tramadol (Verified Adverse Reaction, Mild, N/V, 12/21/14) Home Medications Gabapentin 800 Mg Tablet, 800 MG PO QID, (Reported) Insulin Aspart 300 Units/3 Ml Solution, 20 UNITS SQ AC, (Reported) [facility] LAST DISPENSED 8 PENS (24 ML) Insulin Glargine,Hum.rec.anlog 100 Unit/1 Ml Insuln.pen, 42 UNIT SQ HS, ( Reported) [facility] LAST DISPENSED 10 PENS (30 ML) 03/15/16 Patient Home Medication List Home Medication List Reviewed: Yes Review of Systems Review of Systems Constitutional: see HPI; No chills, No fever EENTM: nose congestion; No throat pain Respiratory: cough; No short of breath Cardiovascular: No chest pain, No edema Gastrointestinal: No abdominal pain; nausea, vomiting Genitourinary: No dysuria; frequency Musculoskeletal: no symptoms reported Skin: no symptoms reported Psychiatric/Neurological: See HPI; Denies Headache; Other (fatigue) Past Lstiikw-Tkyndu-Ahmyfp Hx Past Med/Social Hx: Reviewed Nursing Past Med/Soc Hx Patient Social History Alcohol Use: Denies Use Recreational Drug Use: No Drug of Choice: PAST HX- WEED Smoking Status: Never a Smoker Type Used: Smokeless Tobacco Former Smoker, Quit: Aug 14, 2017 2nd Hand Smoke Exposure: No Recent Foreign Travel: No Contact w/Someone Who Travel: No Recent Infectious Disease Expo: No Recent Hopitalizations: No Immunizations Up To Date Tetanus Booster (TDap): Unknown Date of Pneumonia Vaccine: Aug 27, 2011 Date of Influenza Vaccine: May 21, 2014 Seasonal Allergies Seasonal Allergies: No Past Medical History Surgeries: No Respiratory: Yes (copd dx by patient) COPD Currently Using CPAP: No Currently Using BIPAP: No Cardiac: Yes Hypertension Neurological: Yes Neuropathy Reproductive Disorders: No Sexually Transmitted Disease: No HIV/AIDS: No Genitourinary: Yes Kidney Infection Gastrointestinal: Yes (ABD SWELLING, ELEVATED LIVER ENZYMES) Musculoskeletal: Yes Arthritis, Scoliosis, Chronic Back Pain Endocrine: Yes (EXTREME NON-COMPLIANCE, MULTIPLE EPISODES OF DKA) Diabetes, Insulin dep Hearing Impairment: Denies Cancer: No Psychosocial: Yes (POLYSUBSTANCE ABUSE) Depression Integumentary: No Blood Disorders: No Adverse Reaction/Blood Tranf: No Family Medical History Reviewed Nursing Family Hx Alcoholism 19 FATHER G8 BROTHER Congenital heart disease 19 FATHER Family history: Cardiovascular disease 19 FATHER, Onset:40's - 50 Family history: Diabetes mellitus 19 MOTHER Family history: Hypertension 19 FATHER Heart disease 19 FATHER History of - respiratory disease 19 FATHER History of drug abuse 19 MOTHER Hypercholesterolemia 19 FATHER Myocardial infarction 19 FATHER Seizure disorder 19 FATHER No Family History of: Abdominal aortic aneurysm [place]'s disease Cancer Congestive heart failure Cystic fibrosis Dementia Dysphagia Family history: Allergy Family history: Alzheimer's disease Family history: Arthritis Family history: Asthma Family history: Breast disease Family history: Coronary thrombosis Family history: Gastrointestinal disease Family history: Glaucoma Family history: Osteoporosis Family history: Thyroid disorder Headache Hearing loss Hereditary disease History of - anemia History of - disorder Human immunodeficiency virus (HIV) seropositivity Infertile Kidney disease Malignant neoplasm of lung Parkinson's disease Prostate cancer Psychotic disorder Stroke Tuberculosis Visual impairment No Pertinent Family Hx, Heart Disease, Diabetes, Hypertension, Lung Disease, Psychiatric Problems Physical Exam Vital Signs Vital Signs - First Documented 05/22/18 14:18 Temp 97.9 Pulse 88 Resp 18 B/P (MAP) 143/84 (103) Pulse Ox 98 O2 Delivery Room Air Capillary Refill : Less Than 3 Seconds Height, Weight, BMI Height: 5'10.00" Weight: 250lbs. 0oz. 113.406409mb; 27.3 BMI Method:Stated General Appearance: No Apparent Distress, WD/WN HEENT: PERRL/EOMI, Pharynx Normal, Other (congestion) Neck: Non Tender, Supple Respiratory: Lungs Clear, Normal Breath Sounds Cardiovascular: Regular Rate, Rhythm, No Murmur Gastrointestinal: Non Tender, Soft Back: Normal Inspection, No CVA Tenderness, No Vertebral Tenderness Extremity: Normal Range of Motion, Non Tender Neurologic/Psychiatric: Alert, Oriented x3 Skin: Normal Color, Warm/Dry Progress/Results/Core Measures Suspected Sepsis Recent Fever Within 48 Hours: No Infection Criteria Present: None New/Unexplained Altered Menta: No Sepsis Screen: No Definite Risk SIRS Temperature:97.9 Pulse: 88 Respiratory Rate: 18 Laboratory Tests 05/22/18 15:15: White Blood Count 6.7 Blood Pressure 143 /84 Mean: 103 Laboratory Tests 05/22/18 15:15: Creatinine 0.89, Platelet Count 232, Total Bilirubin 0.3 Results/Orders Lab Results Laboratory Tests Test 05/22/18 14:28 05/22/18 15:15 05/22/18 15:20 Range/Units Glucometer 289 H 70-110 MG/DL White Blood Count 6.7 4.3-11.0 10^3/uL Red Blood Count 4.92 4.35-5.85 10^6/uL Hemoglobin 14.0 13.3-17.7 G/DL Hematocrit 40 40-54 % Mean Corpuscular Volume 81 80-99 FL Mean Corpuscular Hemoglobin 29 25-34 PG Mean Corpuscular Hemoglobin Concent 35 32-36 G/DL Red Cell Distribution Width 12.9 10.0-14.5 % Platelet Count 232 130-400 10^3/uL Mean Platelet Volume 9.7 7.4-10.4 FL Neutrophils (%) (Auto) 58 42-75 % Lymphocytes (%) (Auto) 31 12-44 % Monocytes (%) (Auto) 6 0-12 % Eosinophils (%) (Auto) 5 0-10 % Basophils (%) (Auto) 1 0-10 % Neutrophils # (Auto) 3.9 1.8-7.8 X 10^3 Lymphocytes # (Auto) 2.1 1.0-4.0 X 10^3 Monocytes # (Auto) 0.4 0.0-1.0 X 10^3 Eosinophils # (Auto) 0.4 H 0.0-0.3 10^3/uL Basophils # (Auto) 0.1 0.0-0.1 10^3/uL Sodium Level 137 135-145 MMOL/L Potassium Level 3.9 3.6-5.0 MMOL/L Chloride Level 102 98-107 MMOL/L Carbon Dioxide Level 26 21-32 MMOL/L Anion Gap 9 5-14 MMOL/L Blood Urea Nitrogen 17 7-18 MG/DL Creatinine 0.89 0.60-1.30 MG/DL Estimat Glomerular Filtration Rate > 60 BUN/Creatinine Ratio 19 Glucose Level 260 H 70-105 MG/DL Calcium Level 9.3 8.5-10.1 MG/DL Corrected Calcium 9.1 8.5-10.1 MG/DL Total Bilirubin 0.3 0.1-1.0 MG/DL Aspartate Amino Transf (AST/SGOT) 21 5-34 U/L Alanine Aminotransferase (ALT/SGPT) 32 0-55 U/L Alkaline Phosphatase 114 40-136 U/L Total Protein 7.0 6.4-8.2 GM/DL Albumin 4.3 3.2-4.5 GM/DL Urine Color YELLOW Urine Clarity CLEAR Urine pH 6 5-9 Urine Specific [place] 1.015 L 1.016-1.022 Urine Protein 2+ H NEGATIVE Urine Glucose (UA) 4+ H NEGATIVE Urine Ketones NEGATIVE NEGATIVE Urine Nitrite NEGATIVE NEGATIVE Urine Bilirubin NEGATIVE NEGATIVE Urine Urobilinogen NORMAL NORMAL MG/DL Urine Leukocyte Esterase NEGATIVE NEGATIVE Urine RBC (Auto) NEGATIVE NEGATIVE Urine RBC NONE /HPF Urine WBC NONE /HPF Urine Squamous Epithelial Cells RARE /HPF Urine Crystals NONE /LPF Urine Bacteria NONE /HPF Urine Casts NONE /LPF Urine Mucus NEGATIVE /LPF Urine Culture Indicated NO My Orders Orders - KYREE LANCASTER MD Cbc With Automated Diff (05/22/18 15:12) Comprehensive Metabolic Panel (05/22/18 15:12) Ua Culture If Indicated (05/22/18 15:12) Saline Lock/Iv-Start (05/22/18 15:12) Ns Iv 1000 Ml (Sodium Chloride 0.9%) (05/22/18 15:12) Accucheck Stat ONCE (05/22/18 15:25) Medications Given in ED Current Medications Medications Dose Ordered Sig/Fer Route Start Time Stop Time Status Last Admin Dose Admin Sodium Chloride 1,000 ml @ 0 mls/hr Q0M ONCE IV 05/22/18 15:12 05/22/18 15:13 DC 05/22/18 15:20 1,000 MLS/HR Vital Signs/I&O 05/22/18 14:18 Temp 97.9 Pulse 88 Resp 18 B/P (MAP) 143/84 (103) Pulse Ox 98 O2 Delivery Room Air Capillary Refill : Less Than 3 Seconds Blood Pressure Mean: 103 Progress Note : Progress Note Seen and evaluated. IV, labs and UA ordered. Normal saline 1 L bolus. Fingerstick blood sugar was done and noted to be 289. See nursing documentation. Monitor patient. 1653: Labs and urine reviewed. Overall feeling a little better after fluids and resting peacefully. No indication for admission. Discharged home with return precautions. Patient verbalize understanding instructions and agreement with plan. Departure Impression Primary Impression: Diabetes mellitus, insulin dependent (IDDM), uncontrolled Qualified Codes: E10.65 - Type 1 diabetes mellitus with hyperglycemia Disposition: 01 HOME, SELF-CARE Condition: Improved Departure-Patient Inst. Decision time for Depature: 16:55 [facility] Primary Care Physician Patient Instructions: Diabetes Type 1, Adult (DC) Add. Discharge Instructions: All discharge instructions reviewed with patient and/or family. Voiced understanding. Continue to monitor your sugars. Take your insulin as previously directed. Drink plenty of non-sugary fluids. Follow-up with your Dr. in a few days for recheck. Return for worsening, fever, vomiting, weakness, breathing problems or other concerns as needed. Work/School Note: Work Release Form Date Seen in the Emergency Department: May 22, 2018 Return to Work: May 23, 2018 Restrictions: No Restrictions KYREE LANCASTER MD May 22, 2018 15:19
[2018-05-22 15:21] LABS: BASOPHILS # (AUTO) 0.1 10^3/uL (0.0-0.1); BASOPHILS % (AUTO) 1 % (0-10); EOSINOPHILS # (AUTO) 0.4 10^3/uL (0.0-0.3); EOSINOPHILS % (AUTO) 5 % (0-10); HEMATOCRIT 40 % (40-54); LYMPHOCYTES # (AUTO) 2.1 X 10^3 (1.0-4.0); LYMPHOCYTES % (AUTO) 31 % (12-44); MEAN CORPUSCULAR HEMOGLOBIN 29 PG (25-34); MEAN CORPUSCULAR HGB CONC 35 G/DL (32-36); MEAN CORPUSCULAR VOLUME 81 FL (80-99); MEAN PLATELET VOLUME 9.7 FL (7.4-10.4); MONOCYTES # (AUTO) 0.4 X 10^3 (0.0-1.0); MONOCYTES % (AUTO) 6 % (0-12); NEUTROPHILS # (AUTO) 3.9 X 10^3 (1.8-7.8); NEUTROPHILS % (AUTO) 58 % (42-75); PLATELET COUNT 232 10^3/uL (130-400); RED BLOOD COUNT 4.92 10^6/uL (4.35-5.85); RED CELL DISTRIBUTION WIDTH 12.9 % (10.0-14.5); WHITE BLOOD COUNT 6.7 10^3/uL (4.3-11.0)
[2018-05-22 15:29] LABS: BILIRUBIN,URINE NEGATIVE (NEGATIVE); CLARITY,URINE CLEAR; COLOR,URINE YELLOW; GLUCOSE, URINE (UA) 4+ (NEGATIVE); KETONES,URINE NEGATIVE (NEGATIVE); LEUKOCYTE ESTERASE ,URINE NEGATIVE (NEGATIVE); NITRITE,URINE NEGATIVE (NEGATIVE); PH,URINE 6 (5-9); PROTEIN,URINE 2+ (NEGATIVE); UROBILINOGEN,URINE NORMAL (NORMAL)
[2018-05-22 15:36] LABS: SQUAMOUS EPITHELIAL CELL,UR RARE /HPF
[2018-05-22 15:42] LABS: ALANINE AMINOTRANSFERASE 32 U/L (0-55); ALBUMIN 4.3 GM/DL (3.2-4.5); ALKALINE PHOSPHATASE 114 U/L (40-136); BILIRUBIN,TOTAL 0.3 MG/DL (0.1-1.0); BUN/CREATININE RATIO 19; CALCIUM 9.3 MG/DL (8.5-10.1); CARBON DIOXIDE 26 MMOL/L (21-32); CHLORIDE 102 MMOL/L (98-107); CREATININE SERUM 0.89 MG/DL (0.60-1.30); GFR ESTIMATED > 60; GLUCOSE 260 MG/DL (70-105); POTASSIUM 3.9 MMOL/L (3.6-5.0); SODIUM 137 MMOL/L (135-145)
[2018-05-22 17:02] VITALS: BP 143/84
== END 2018-05-22 17:09 | disposition home or self-care (01) ==
LOC: EDUNIT# 13:57 → ER 13:59
DX: E11.65 Type 2 diabetes mellitus with hyperglycemia (principal); J44.9 Chronic obstructive pulmonary disease, unspecified; I10 Essential (primary) hypertension; E11.40 Type 2 diabetes mellitus with diabetic neuropathy, unspecified; F32.9 Major depressive disorder, single episode, unspecified; Z79.4 Long term (current) use of insulin; Z88.5 Allergy status to narcotic agent
CPT/HCPCS: 36415; 80053; 81000; 82962; 85025; 96360

== ENCOUNTER 2018-11-10 13:04 | Emergency (ER) | payer BC ==
[~2018-11-10] VITALS: Ht 177.8 cm; Wt 108.9 kg
[~2018-11-10 13:04] MED LIST changes: -GABA600T2 PO; +GABA800T10 PO; -GABA800T2 PO; +GBPN600T PO
--- NOTE | 2018-11-10 13:50 | ED General ---
General Chief Complaint: Glucose Problems Stated Complaint: CHEST PAIN - WEAK - VOMITING Nursing Triage Note: Patient advises he feels like he is in "dka" he states his blood sugar was 330 this morning and that he took 5units of novalog and has vomitted 5 times and is unable to keep anything down. Nursing Sepsis Screen: No Definite Risk Source of Information: Patient Exam Limitations: No Limitations History of Present Illness Date Seen by Provider: Nov 10, 2018 Time Seen by Provider: 13:50 Initial Comments 33-year-old male who presents to the emergency room with complaints of chest pain, weakness, nausea vomiting, elevated blood sugars. He reports that he believes that he is in DKA. He reports taking 5 units of NovoLog but has not rechecked his sugar. He reports he's been unable to keep anything down for the last 24 hours. Timing/Duration: 24 Hours Associated Systoms: Nausea/Vomiting, Weakness Allergies and Home Medications Allergies Coded Allergies: tramadol (Verified Adverse Reaction, Mild, N/V, 12/21/14) Home Medications Gabapentin 800 Mg Tablet, 800 MG PO QID, (Reported) Insulin Aspart 300 Units/3 Ml Solution, 20 UNITS SQ AC, (Reported) [facility] LAST DISPENSED 8 PENS (24 ML) Insulin Glargine,Hum.rec.anlog 100 Unit/1 Ml Insuln.pen, 42 UNIT SQ HS, (Reported) [facility] LAST DISPENSED 10 PENS (30 ML) 03/15/16 Patient Home Medication List Home Medication List Reviewed: Yes Review of Systems Review of Systems Constitutional: see HPI; No chills, No fever; malaise, weakness Gastrointestinal: see HPI, nausea, vomiting Hematologic/Lymphatic: See HPI, Other (elevated blood sugar) All Other Systems Reviewed Negative Unless Noted: Yes Past Xznoudp-Xahvpx-Sueeip Hx Past Med/Social Hx: Reviewed Nursing Past Med/Soc Hx Patient Social History Alcohol Use: Denies Use Recreational Drug Use: Yes Drug of Choice: PAST HX- WEED Smoking Status: Former Smoker Type Used: Smokeless Tobacco Former Smoker, Quit: Aug 14, 2017 2nd Hand Smoke Exposure: No Recent Foreign Travel: No Contact w/Someone Who Travel: No Recent Infectious Disease Expo: No Recent Hopitalizations: No Immunizations Up To Date Tetanus Booster (TDap): Unknown Date of Pneumonia Vaccine: Aug 27, 2011 Date of Influenza Vaccine: May 21, 2014 Seasonal Allergies Seasonal Allergies: No Past Medical History Surgeries: No Respiratory: Yes (copd dx by patient) COPD Currently Using CPAP: No Currently Using BIPAP: No Cardiac: Yes Hypertension Neurological: Yes Neuropathy Reproductive Disorders: No Sexually Transmitted Disease: No HIV/AIDS: No Genitourinary: Yes Kidney Infection Gastrointestinal: Yes (ABD SWELLING, ELEVATED LIVER ENZYMES) Musculoskeletal: Yes Arthritis, Scoliosis, Chronic Back Pain Endocrine: Yes (EXTREME NON-COMPLIANCE, MULTIPLE EPISODES OF DKA) Diabetes, Insulin dep Hearing Impairment: Denies Cancer: No Psychosocial: Yes (POLYSUBSTANCE ABUSE) Depression Integumentary: No Blood Disorders: No Adverse Reaction/Blood Tranf: No Family Medical History Reviewed Nursing Family Hx Alcoholism 19 FATHER G8 BROTHER Congenital heart disease 19 FATHER Family history: Cardiovascular disease 19 FATHER, Onset:40's - 50 Family history: Diabetes mellitus 19 MOTHER Family history: Hypertension 19 FATHER Heart disease 19 FATHER History of - respiratory disease 19 FATHER History of drug abuse 19 MOTHER Hypercholesterolemia 19 FATHER Myocardial infarction 19 FATHER Seizure disorder 19 FATHER No Family History of: Abdominal aortic aneurysm [place]'s disease Cancer Congestive heart failure Cystic fibrosis Dementia Dysphagia Family history: Allergy Family history: Alzheimer's disease Family history: Arthritis Family history: Asthma Family history: Breast disease Family history: Coronary thrombosis Family history: Gastrointestinal disease Family history: Glaucoma Family history: Osteoporosis Family history: Thyroid disorder Headache Hearing loss Hereditary disease History of - anemia History of - disorder Human immunodeficiency virus (HIV) seropositivity Infertile Kidney disease Malignant neoplasm of lung Parkinson's disease Prostate cancer Psychotic disorder Stroke Tuberculosis Visual impairment No Pertinent Family Hx, Heart Disease, Diabetes, Hypertension, Lung Disease, Psychiatric Problems Physical Exam Vital Signs Vital Signs - First Documented 11/10/18 13:34 Pulse 105 Resp 14 B/P (MAP) 137/82 (100) Pulse Ox 99 O2 Delivery Room Air Capillary Refill : Less Than 3 Seconds Height, Weight, BMI Height: 5'10.00" Weight: 240lbs. 0oz. 108.741394ut; 27.3 BMI Method:Stated General Appearance: No Apparent Distress, WD/WN HEENT: PERRL/EOMI, TMs Normal, Normal ENT Inspection, Pharynx Normal Neck: Full Range of Motion, Normal Inspection, Non Tender, Supple, Carotid Bruit Respiratory: Chest Non Tender, Lungs Clear, Normal Breath Sounds, No Accessory Muscle Use, No Respiratory Distress Cardiovascular: Regular Rate, Rhythm, No Edema, No Gallop, No JVD, No Murmur, Normal Peripheral Pulses Gastrointestinal: Normal Bowel Sounds, No Organomegaly, No Pulsatile Mass, Non Tender, Soft Extremity: Normal Capillary Refill Neurologic/Psychiatric: Alert, Oriented x3, Normal Mood/Affect Skin: Normal Color, Warm/Dry Progress/Results/Core Measures Suspected Sepsis Recent Fever Within 48 Hours: No Infection Criteria Present: None New/Unexplained Altered Menta: No Sepsis Screen: No Definite Risk SIRS Temperature: Pulse: 105 Respiratory Rate: 14 Laboratory Tests 11/10/18 13:47: White Blood Count 7.3 Blood Pressure 137 /82 Mean: 100 Laboratory Tests 11/10/18 13:47: Creatinine 0.99, Platelet Count 191, Total Bilirubin 1.5H Results/Orders Lab Results Laboratory Tests Test 11/10/18 13:21 11/10/18 13:47 11/10/18 13:48 11/10/18 14:13 Range/Units Glucometer 444 *H 70-110 MG/DL White Blood Count 7.3 4.3-11.0 10^3/uL Red Blood Count 4.45 4.35-5.85 10^6/uL Hemoglobin 12.9 L 13.3-17.7 G/DL Hematocrit 38 L 40-54 % Mean Corpuscular Volume 85 80-99 FL Mean Corpuscular Hemoglobin 29 25-34 PG Mean Corpuscular Hemoglobin Concent 34 32-36 G/DL Red Cell Distribution Width 12.9 10.0-14.5 % Platelet Count 191 130-400 10^3/uL Mean Platelet Volume 10.6 H 7.4-10.4 FL Neutrophils (%) (Auto) 72 42-75 % Lymphocytes (%) (Auto) 20 12-44 % Monocytes (%) (Auto) 5 0-12 % Eosinophils (%) (Auto) 2 0-10 % Basophils (%) (Auto) 0 0-10 % Neutrophils # (Auto) 5.3 1.8-7.8 X 10^3 Lymphocytes # (Auto) 1.5 1.0-4.0 X 10^3 Monocytes # (Auto) 0.4 0.0-1.0 X 10^3 Eosinophils # (Auto) 0.2 0.0-0.3 10^3/uL Basophils # (Auto) 0.0 0.0-0.1 10^3/uL Sodium Level 131 L 135-145 MMOL/L Potassium Level 4.3 3.6-5.0 MMOL/L Chloride Level 97 L 98-107 MMOL/L Carbon Dioxide Level 20 L 21-32 MMOL/L Anion Gap 14 5-14 MMOL/L Blood Urea Nitrogen 21 H 7-18 MG/DL Creatinine 0.99 0.60-1.30 MG/DL Estimat Glomerular Filtration Rate > 60 BUN/Creatinine Ratio 21 Glucose Level 487 *H 70-105 MG/DL Calcium Level 8.9 8.5-10.1 MG/DL Corrected Calcium 8.9 8.5-10.1 MG/DL Magnesium Level 1.5 L 1.8-2.4 MG/DL Total Bilirubin 1.5 H 0.1-1.0 MG/DL Aspartate Amino Transf (AST/SGOT) 17 5-34 U/L Alanine Aminotransferase (ALT/SGPT) 21 0-55 U/L Alkaline Phosphatase 78 40-136 U/L Troponin I < 0.028 <0.028 NG/ML Total Protein 6.3 L 6.4-8.2 GM/DL Albumin 4.0 3.2-4.5 GM/DL Amylase Level 22 L 25-125 U/L Lipase 7 L 8-78 U/L Urine Color YELLOW Urine Clarity CLEAR Urine pH 5 5-9 Urine Specific [place] 1.015 L 1.016-1.022 Urine Protein 1+ H NEGATIVE Urine Glucose (UA) 4+ H NEGATIVE Urine Ketones 4+ H NEGATIVE Urine Nitrite NEGATIVE NEGATIVE Urine Bilirubin NEGATIVE NEGATIVE Urine Urobilinogen NORMAL NORMAL MG/DL Urine Leukocyte Esterase NEGATIVE NEGATIVE Urine RBC (Auto) NEGATIVE NEGATIVE Urine RBC NONE /HPF Urine WBC NONE /HPF Urine Squamous Epithelial Cells NONE /HPF Urine Crystals NONE /LPF Urine Bacteria NEGATIVE /HPF Urine Casts NONE /LPF Urine Mucus NEGATIVE /LPF Urine Culture Indicated NO Blood Gas Puncture Site R.RAD. Blood Gas Patient Temperature 96.7 Arterial Blood pH 7.33 *L 7.37-7.43 Arterial Blood Partial Pressure CO2 38 35-45 MMHG Arterial Blood Partial Pressure O2 89 79-93 MMHG Arterial Blood HCO3 20 L 23-27 MMOL/L Arterial Blood Total CO2 20.7 L 21.0-31.0 MMOL/L Arterial Blood Oxygen Saturation 96 94-100 % Arterial Blood Base Excess -5.6 L -2.5-2.5 MMOL/L Mauri Test YES-POS Blood Gas Ventilator Setting NO Blood Gas Inspired Oxygen ROOM AIR Test 11/10/18 14:40 11/10/18 15:56 11/10/18 17:22 Range/Units Glucometer 404 *H 303 H 201 H 70-110 MG/DL My Orders Orders - DARLENEJING CABA Comprehensive Metabolic Panel (11/10/18 13:46) Lipase (11/10/18 13:46) Amylase (11/10/18 13:46) Ua Culture If Indicated (11/10/18 13:46) Ed Iv/Invasive Line Start (11/10/18 13:46) Cbc With Automated Diff (11/10/18 13:46) Chest 1 View, Ap/Pa Only (11/10/18 13:46) Ekg Tracing (11/10/18 13:46) Troponin I (11/10/18 13:46) Ondansetron Injection (Zofran Injectio (11/10/18 14:00) Magnesium (11/10/18 13:46) Ns Iv 1000 Ml (Sodium Chloride 0.9%) (11/10/18 14:00) Insulin (Regular) Human (Humulin R (Per (11/10/18 14:00) Arterial Blood Gas (11/10/18 14:07) Ns Iv 1000 Ml (Sodium Chloride 0.9%) (11/10/18 14:30) Arterial Blood Draw (11/10/18 14:13) Ns Iv 500 Ml (Sodium Chloride 0.9%) (11/10/18 16:15) Insulin (Regular) Human (Humulin R (Per (11/10/18 16:15) Medications Given in ED Vital Signs/I&O Capillary Refill : Less Than 3 Seconds Blood Pressure Mean: 100 Point of Care Testing Finger Stick Blood Glucose: 444 Blood Glucose Action Taken: rn notified Progress Note : Time: 16:20 Progress Note I have seen and evaluated the patient. He is feeling better at this time. I have discussed the case with Dr. Phan at this time and she believes the patient does not meet hospital criteria at this time. I will continue to hydrate and will give additional dose of insulin. He agrees with plan of care, plans for discharge, return precautions were given. Departure Impression Primary Impression: Type 1 diabetes mellitus Disposition: 01 HOME, SELF-CARE Condition: Stable/Unchanged Departure-Patient Inst. Decision time for Depature: 17:25 Referrals: [facility] (PCP/Family) Primary Care Physician Patient Instructions: Diabetes Type 1, Adult (DC) Add. Discharge Instructions: Drink plenty of fluids to stay hydrated. Take your blood sugars frequently and dose your insulin appropriately. Return back to the emergency room for worsening symptoms or concerns as needed. Follow-up with your primary care provider within 1 week for recheck. All discharge instructions reviewed with patient and/or family. Voiced understanding. JING KRISHNAMURTHY Nov 10, 2018 13:50
[2018-11-10 13:56] LABS: BILIRUBIN,URINE NEGATIVE (NEGATIVE); CLARITY,URINE CLEAR; COLOR,URINE YELLOW; GLUCOSE, URINE (UA) 4+ (NEGATIVE); KETONES,URINE 4+ (NEGATIVE); LEUKOCYTE ESTERASE ,URINE NEGATIVE (NEGATIVE); NITRITE,URINE NEGATIVE (NEGATIVE); PH,URINE 5 (5-9); PROTEIN,URINE 1+ (NEGATIVE); UROBILINOGEN,URINE NORMAL (NORMAL)
[2018-11-10] MEDS ORDERED: inSUlin (REGULAR) HUMAN 1 UNIT/0.01 ML (CHARGE PER UNIT) IV ONE ×2 (14:00→16:15)
[2018-11-10] MEDS ORDERED: ONDANSETRON 4 MG/2 ML (SDV) Z0FRAN IVP ONE (14:00)
[2018-11-10] MEDS ORDERED: NS IV 1000 ML 1,000 ML IV SCH ×2 (14:00→14:30)
[2018-11-10 14:04] LABS: BASOPHILS % (AUTO) 0 % (0-10); EOSINOPHILS # (AUTO) 0.2 10^3/uL (0.0-0.3); EOSINOPHILS % (AUTO) 2 % (0-10); HEMATOCRIT 38 % (40-54); HEMOGLOBIN 12.9 G/DL (13.3-17.7); LYMPHOCYTES # (AUTO) 1.5 X 10^3 (1.0-4.0); LYMPHOCYTES % (AUTO) 20 % (12-44); MEAN CORPUSCULAR HEMOGLOBIN 29 PG (25-34); MEAN CORPUSCULAR HGB CONC 34 G/DL (32-36); MEAN CORPUSCULAR VOLUME 85 FL (80-99); MEAN PLATELET VOLUME 10.6 FL (7.4-10.4); MONOCYTES # (AUTO) 0.4 X 10^3 (0.0-1.0); MONOCYTES % (AUTO) 5 % (0-12); NEUTROPHILS # (AUTO) 5.3 X 10^3 (1.8-7.8); NEUTROPHILS % (AUTO) 72 % (42-75); PLATELET COUNT 191 10^3/uL (130-400); RED CELL DISTRIBUTION WIDTH 12.9 % (10.0-14.5); WHITE BLOOD COUNT 7.3 10^3/uL (4.3-11.0)
[2018-11-10 14:06] LABS: BACTERIA,URINE NEGATIVE /HPF
[2018-11-10 14:08] LABS: MAGNESIUM 1.5 MG/DL (1.8-2.4)
[2018-11-10 14:15] LABS: ALANINE AMINOTRANSFERASE 21 U/L (0-55); ALKALINE PHOSPHATASE 78 U/L (40-136); AMYLASE 22 U/L (25-125); BILIRUBIN,TOTAL 1.5 MG/DL (0.1-1.0); BUN/CREATININE RATIO 21; CALCIUM 8.9 MG/DL (8.5-10.1); CARBON DIOXIDE 20 MMOL/L (21-32); CHLORIDE 97 MMOL/L (98-107); CREATININE SERUM 0.99 MG/DL (0.60-1.30); GFR ESTIMATED > 60; LIPASE 7 U/L (8-78); POTASSIUM 4.3 MMOL/L (3.6-5.0); SODIUM 131 MMOL/L (135-145); TOTAL PROTEIN 6.3 GM/DL (6.4-8.2)
[2018-11-10 14:20] LABS: ABG BASE EXCESS -5.6 MMOL/L (-2.5-2.5); ABG OXYGEN SATURATION 96 % (94-100); ABG PCO2 38 MMHG (35-45); ABG PO2 89 MMHG (79-93); ABG TCO2 20.7 MMOL/L (21.0-31.0)
--- NOTE | 2018-11-10 14:21 | Diagnostic Imaging Report ---
INDICATION: Chest pain. COMPARISON: Comparison made with prior examination from 06/20/2016. FINDINGS: The heart size, mediastinal configuration, and pulmonary vascularity are within normal limits. There is no pleural effusion, pneumothorax, or pneumonia. The osseous structures are unremarkable. IMPRESSION: No acute cardiopulmonary abnormality. Dictated by: Dictated on workstation # [id number]
[2018-11-10 14:22] LABS: GLUCOSE 487 MG/DL (70-105)
[2018-11-10 14:24] LABS: ABG PH 7.33 (7.37-7.43)
[2018-11-10 14:25] LABS: ALLENS TEST YES-POS; INSPIRED O2 ROOM AIR; PATIENT TEMP 96.7; VENTILATOR NO
[2018-11-10] MEDS ORDERED: NS IV 500 ML 500 ML IV SCH (16:15)
[2018-11-10 17:41] VITALS: BP 118/70
== END 2018-11-10 17:48 | disposition home or self-care (01) ==
LOC: EDUNIT# 13:04 → ER 13:06
DX: E11.10 Type 2 diabetes mellitus with ketoacidosis without coma (principal); J44.9 Chronic obstructive pulmonary disease, unspecified; E11.40 Type 2 diabetes mellitus with diabetic neuropathy, unspecified; F32.9 Major depressive disorder, single episode, unspecified; M41.9 Scoliosis, unspecified; I10 Essential (primary) hypertension; Z88.6 Allergy status to analgesic agent; Z79.4 Long term (current) use of insulin; Z82.49 Family history of ischemic heart disease and other diseases of the circulatory system; Z91.19 Patient's noncompliance with other medical treatment and regimen; Z87.448 Personal history of other diseases of urinary system; Z87.891 Personal history of nicotine dependence
CPT/HCPCS: 36415; 36600; 71045; 80053; 81000; 82150; 82805; 82962; 83690; 83735; 84484; 85025; 93005; 96361; 96374; 96375; 96376

== ENCOUNTER 2019-03-05 15:36 | Observation (INO) | payer BC ==
[~2019-03-05] VITALS: Ht 180 cm; Wt 104.0 kg
[2019-03-05 16:22] LABS: CLARITY,URINE CLEAR; COLOR,URINE AMBER; GLUCOSE, URINE (UA) 1+ (NEGATIVE); KETONES,URINE 1+ (NEGATIVE); LEUKOCYTE ESTERASE ,URINE 1+ (NEGATIVE); NITRITE,URINE NEGATIVE (NEGATIVE); PH,URINE 5 (5-9); PROTEIN,URINE 3+ (NEGATIVE); UROBILINOGEN,URINE 1 MG/DL (NORMAL)
[2019-03-05 16:30] LABS: BILIRUBIN,URINE 1+ (NEGATIVE)
[2019-03-05 16:31] LABS: BACTERIA,URINE NEGATIVE /HPF; WBC,URINE 0-2 /HPF
[2019-03-05 16:32] LABS: BENZODIAZEPINES SCREEN URINE NEGATIVE (NEGATIVE)
[2019-03-05] MEDS ORDERED: NS IV 1000 ML 1,000 ML IV SCH ×2 (16:32→16:40)
[2019-03-05 16:33] VITALS: BP_SYST 107; BP_SYST 109; BP_SYST 90; BP_DIAS 63; BP_DIAS 70; BP_DIAS 75
[2019-03-05 16:33] LABS: AMPHETAMINE SCREEN, URINE NEGATIVE (NEGATIVE); BARBITURATE SCREEN URINE NEGATIVE (NEGATIVE); CANNABINOID SCREEN, URINE POSITIVE (NEGATIVE); COCAINE SCREEN URINE NEGATIVE (NEGATIVE); METHADONE STAT NEGATIVE (NEGATIVE); METHAMPHETAMINE SCREEN URINE S NEGATIVE (NEGATIVE); OPIATE SCREEN URINE NEGATIVE (NEGATIVE); OXYCODONE STAT NEGATIVE (NEGATIVE); PROPOXYPHENE STAT NEGATIVE (NEGATIVE); TRICYCLIC ANTIDEPRESSANTS SCRE NEGATIVE (NEGATIVE)
--- NOTE | 2019-03-05 16:40 | ED General ---
General Chief Complaint: General Problems/Pain Stated Complaint: LIGHT HEADED Nursing Triage Note: GENERALIZED WEAKNESS, FEELING "FUZZY", AND DIAPHORETIC STARTING TODAY. PT IS A DIABETIC BUT HAS NO STRIPS TO CHECK HIS BLOOD SUGAR. Nursing Sepsis Screen: No Definite Risk Source of Information: Patient, Family (dad) Exam Limitations: No Limitations History of Present Illness Date Seen by Provider: Mar 05, 2019 Time Seen by Provider: 16:17 Initial Comments Patient presents ER by private conveyance with his father and chief complaint that for the past 2 days she's not felt well and today he feels very fuzzy and lightheaded every time he stands up from bending over like he's about to pass out. He has a history of diabetes takes 40 of Lantus at night and 8 units NovoLog with meals. He is not having any nausea fever chills but he did have some sweats. He says it feels like his diabetes is off. But sugar per nursing was 122 today. He has not had runny nose sore throat ears underwater cough shortness of breath. He does have some COPD. He's down to the 102 cigarettes per week and about half a can of chewing tobacco per day. He still smokes marijuana. He had a bowel movement normal yesterday. He thinks she has irritable bowel because he will vacillate between runny stools and constipation. Allergies and Home Medications Allergies Coded Allergies: tramadol (Verified Adverse Reaction, Mild, N/V, 12/21/14) Home Medications Gabapentin 800 Mg Tablet, 800 MG PO QID, (Reported) Insulin Aspart 300 Units/3 Ml Solution, 20 UNITS SQ AC, (Reported) [facility] LAST DISPENSED 8 PENS (24 ML) Insulin Glargine,Hum.rec.anlog 100 Unit/1 Ml Insuln.pen, 42 UNIT SQ HS, (Reported) [facility] LAST DISPENSED 10 PENS (30 ML) 03/15/16 Patient Home Medication List Home Medication List Reviewed: Yes Review of Systems Review of Systems Constitutional: No chills; diaphoresis; No fever EENTM: No ear discharge, No ear pain Respiratory: No cough, No short of breath Cardiovascular: No chest pain, No edema Gastrointestinal: No abdominal pain, No constipation, No diarrhea Genitourinary: No discharge, No dysuria Musculoskeletal: No back pain, No joint pain Skin: No change in color, No dryness, No pruritus, No rash Past Coqyjor-Vqyykm-Ksqsua Hx Patient Social History Alcohol Use: Denies Use Recreational Drug Use: Yes Drug of Choice: POT Smoking Status: Never a Smoker Type Used: Smokeless Tobacco Former Smoker, Quit: Aug 14, 2017 2nd Hand Smoke Exposure: No Recent Foreign Travel: No Contact w/Someone Who Travel: No Recent Infectious Disease Expo: No Recent Hopitalizations: No Physical Abuse: No Sexual Abuse: No Mistreated: No Fear: No Immunizations Up To Date Tetanus Booster (TDap): Unknown Date of Pneumonia Vaccine: Aug 27, 2011 Date of Influenza Vaccine: May 21, 2014 Seasonal Allergies Seasonal Allergies: No Past Medical History Surgeries: No Respiratory: Yes (copd dx by patient) COPD Currently Using CPAP: No Currently Using BIPAP: No Cardiac: Yes Hypertension Neurological: Yes Neuropathy Reproductive Disorders: No Sexually Transmitted Disease: No HIV/AIDS: No Genitourinary: Yes Kidney Infection Gastrointestinal: Yes (ABD SWELLING, ELEVATED LIVER ENZYMES) Musculoskeletal: Yes Arthritis, Scoliosis, Chronic Back Pain Endocrine: Yes (EXTREME NON-COMPLIANCE, MULTIPLE EPISODES OF DKA) Diabetes, Insulin dep Hearing Impairment: Denies Cancer: No Psychosocial: Yes (POLYSUBSTANCE ABUSE) Depression Integumentary: No Blood Disorders: No Adverse Reaction/Blood Tranf: No Family Medical History Alcoholism 19 FATHER G8 BROTHER Congenital heart disease 19 FATHER Family history: Cardiovascular disease 19 FATHER, Onset:40's - 50 Family history: Diabetes mellitus 19 MOTHER Family history: Hypertension 19 FATHER Heart disease 19 FATHER History of - respiratory disease 19 FATHER History of drug abuse 19 MOTHER Hypercholesterolemia 19 FATHER Myocardial infarction 19 FATHER Seizure disorder 19 FATHER No Family History of: Abdominal aortic aneurysm [place]'s disease Cancer Congestive heart failure Cystic fibrosis Dementia Dysphagia Family history: Allergy Family history: Alzheimer's disease Family history: Arthritis Family history: Asthma Family history: Breast disease Family history: Coronary thrombosis Family history: Gastrointestinal disease Family history: Glaucoma Family history: Osteoporosis Family history: Thyroid disorder Headache Hearing loss Hereditary disease History of - anemia History of - disorder Human immunodeficiency virus (HIV) seropositivity Infertile Kidney disease Malignant neoplasm of lung Parkinson's disease Prostate cancer Psychotic disorder Stroke Tuberculosis Visual impairment No Pertinent Family Hx, Heart Disease, Diabetes, Hypertension, Lung Disease, Psychiatric Problems Physical Exam Vital Signs Vital Signs - First Documented 03/05/19 15:40 Temp 36.8 Pulse 109 Resp 18 B/P (MAP) 121/84 (96) Pulse Ox 99 O2 Delivery Room Air Capillary Refill : Less Than 3 Seconds Height, Weight, BMI Height: 5'10.00" Weight: 240lbs. 0oz. [id number]; 31.00 BMI Method:Stated General Appearance: WD/WN, Mild Distress Eyes: Bilateral Eye Normal Inspection, Bilateral Eye PERRL, Bilateral Eye EOMI HEENT: PERRL/EOMI, Normal ENT Inspection; No Moist Mucous Membranes Neck: Full Range of Motion, Normal Inspection Respiratory: No Accessory Muscle Use, No Respiratory Distress, Crackles (few bibasilar) Cardiovascular: Regular Rate, Rhythm, No Edema, Normal Peripheral Pulses Gastrointestinal: Normal Bowel Sounds, Non Tender, Soft Extremity: Normal Capillary Refill, Normal Inspection, Normal Range of Motion, No Pedal Edema Neurologic/Psychiatric: Alert, Oriented x3 Skin: Normal Color, Warm/Dry Progress/Results/Core Measures Suspected Sepsis Recent Fever Within 48 Hours: No Infection Criteria Present: Suspected New Infection New/Unexplained Altered Menta: No Sepsis Screen: No Definite Risk SIRS Temperature: Pulse: 109 Respiratory Rate: 18 Laboratory Tests 03/05/19 16:40: White Blood Count 6.7 Blood Pressure 121 /84 Mean: 96 Laboratory Tests 03/05/19 16:40: Creatinine 0.96, Platelet Count 231, Total Bilirubin 0.6 Results/Orders Lab Results Laboratory Tests Test 03/05/19 15:47 03/05/19 16:15 03/05/19 16:40 Range/Units Glucometer 122 H 70-110 MG/DL Urine Color DANIELA H Urine Clarity CLEAR Urine pH 5 5-9 Urine Specific [place] 1.020 1.016-1.022 Urine Protein 3+ H NEGATIVE Urine Glucose (UA) 1+ H NEGATIVE Urine Ketones 1+ H NEGATIVE Urine Nitrite NEGATIVE NEGATIVE Urine Bilirubin 1+ H NEGATIVE Urine Urobilinogen 1 NORMAL MG/DL Urine Leukocyte Esterase 1+ H NEGATIVE Urine RBC (Auto) NEGATIVE NEGATIVE Urine RBC NONE /HPF Urine WBC 0-2 /HPF Urine Squamous Epithelial Cells NONE /HPF Urine Crystals NONE /LPF Urine Bacteria NEGATIVE /HPF Urine Casts NONE /LPF Urine Mucus NEGATIVE /LPF Urine Culture Indicated NO Urine Opiates Screen NEGATIVE NEGATIVE Urine Oxycodone Screen NEGATIVE NEGATIVE Urine Methadone Screen NEGATIVE NEGATIVE Urine Propoxyphene Screen NEGATIVE NEGATIVE Urine Barbiturates Screen NEGATIVE NEGATIVE Ur Tricyclic Antidepressants Screen NEGATIVE NEGATIVE Urine Phencyclidine Screen NEGATIVE NEGATIVE Urine Amphetamines Screen NEGATIVE NEGATIVE Urine Methamphetamines Screen NEGATIVE NEGATIVE Urine Benzodiazepines Screen NEGATIVE NEGATIVE Urine Cocaine Screen NEGATIVE NEGATIVE Urine Cannabinoids Screen POSITIVE H NEGATIVE White Blood Count 6.7 4.3-11.0 10^3/uL Red Blood Count 4.92 4.35-5.85 10^6/uL Hemoglobin 14.4 13.3-17.7 G/DL Hematocrit 41 40-54 % Mean Corpuscular Volume 83 80-99 FL Mean Corpuscular Hemoglobin 29 25-34 PG Mean Corpuscular Hemoglobin Concent 35 32-36 G/DL Red Cell Distribution Width 13.1 10.0-14.5 % Platelet Count 231 130-400 10^3/uL Mean Platelet Volume 10.0 7.4-10.4 FL Neutrophils (%) (Auto) 65 42-75 % Lymphocytes (%) (Auto) 25 12-44 % Monocytes (%) (Auto) 7 0-12 % Eosinophils (%) (Auto) 3 0-10 % Basophils (%) (Auto) 1 0-10 % Neutrophils # (Auto) 4.4 1.8-7.8 X 10^3 Lymphocytes # (Auto) 1.7 1.0-4.0 X 10^3 Monocytes # (Auto) 0.5 0.0-1.0 X 10^3 Eosinophils # (Auto) 0.2 0.0-0.3 10^3/uL Basophils # (Auto) 0.0 0.0-0.1 10^3/uL Sodium Level 136 135-145 MMOL/L Potassium Level 3.4 L 3.6-5.0 MMOL/L Chloride Level 101 98-107 MMOL/L Carbon Dioxide Level 25 21-32 MMOL/L Anion Gap 10 5-14 MMOL/L Blood Urea Nitrogen 18 7-18 MG/DL Creatinine 0.96 0.60-1.30 MG/DL Estimat Glomerular Filtration Rate > 60 BUN/Creatinine Ratio 19 Glucose Level 235 H 70-105 MG/DL Calcium Level 8.9 8.5-10.1 MG/DL Corrected Calcium 8.8 8.5-10.1 MG/DL Total Bilirubin 0.6 0.1-1.0 MG/DL Aspartate Amino Transf (AST/SGOT) 16 5-34 U/L Alanine Aminotransferase (ALT/SGPT) 23 0-55 U/L Alkaline Phosphatase 82 40-136 U/L Total Protein 6.7 6.4-8.2 GM/DL Albumin 4.1 3.2-4.5 GM/DL My Orders Orders - OTTONIEL ARMENTA Ua Culture If Indicated (03/05/19 15:43) Drug Screen Stat (Urine) (03/05/19 15:43) Orthostatic Vital Signs (Adult (03/05/19 16:32) Cbc With Automated Diff (03/05/19 16:32) Comprehensive Metabolic Panel (03/05/19 16:32) Accucheck Stat ONCE (03/05/19 16:32) Ed Iv/Invasive Line Start (03/05/19 16:32) Ns Iv 1000 Ml (Sodium Chloride 0.9%) (03/05/19 16:32) Chest 1 View, Ap/Pa Only (03/05/19 16:40) Ed Iv/Invasive Line Start (03/05/19 16:40) Ns Iv 1000 Ml (Sodium Chloride 0.9%) (03/05/19 16:40) Vital Signs/I&O 03/05/19 03/05/19 15:40 16:33 Temp 36.8 Pulse 109 90 96 112 Resp 18 B/P (MAP) 121/84 (96) 109/70 (83) 107/75 (86) 90/63 (72) Pulse Ox 99 O2 Delivery Room Air Capillary Refill : Less Than 3 Seconds Blood Pressure Mean: 96 Point of Care Testing Finger Stick Blood Glucose: 122 Progress Note : Time: 16:38 Progress Note Crackles could indicate atelectasis versus possible pneumonia although he has no fever or cough. We'll get a chest x-ray give him some fluids check orthostatics. Orthostatics were positive so plan to give him 2 L or 20 mL/kg. Blood sugar is okay at the moment. He could be dehydrated from working out in the heat complicated by diabetes and his sugar being out of control. He has a history of poor compliance with insulin however today his blood sugar looks normal. Diagnostic Imaging Diagonstic Imaging: Xray Plain Films/CT/US/NM/MRI: chest (1v) Comments NAME: LYDIA CARUSO JR [facility] REC#: [id number] PT STATUS: REG ER : 1985 PHYSICIAN: OTTONIEL ARMENTA MD ADMIT DATE: 03/05/19/ER Draft Date of Exam:03/05/19 CHEST 1 VIEW, AP/PA ONLY EXAM: CHEST 1 VIEW, AP/PA ONLY. INDICATION: Shortness of air. Lightheadedness. COMPARISON: 11/10/2018. FINDINGS: Normal heart size and pulmonary vascularity. No dense consolidation, pleural effusion, or pneumothorax. No acute osseous findings. No significant change. IMPRESSION: Negative chest. Dictated on workstation # [id number] Dict: 03/05/19 1739 Trans: 03/05/19 1740 [id number] Interpreted by: SARAI ROBERTSON MD Electronically signed by: Reviewed: Reviewed by Me Departure Communication (Admissions) Time/Spoke to Admitting Phy: 18:14 Dr. Pérez agrees to observe the patient with 1-1/2 times maintenance IV fluids labs in the morning. Impression Primary Impression: Dehydration after exertion Additional Impressions: Orthostatic hypotension Type 1 diabetes mellitus with ketosis Disposition: ADMITTED INPATIENT Condition: Stable Admissions Decision to Admit Reason: Admit from ER (General) Decision to Admit/Date: Mar 05, 2019 Time/Decision to Admit Time: 18:14 Departure-Patient Inst. Referrals: [facility] – [place], [place] (PCP/Family) Primary Care Physician OTTONIEL ARMENTA Mar 05, 2019 16:39
[2019-03-05 16:49] LABS: BASOPHILS % (AUTO) 1 % (0-10); EOSINOPHILS # (AUTO) 0.2 10^3/uL (0.0-0.3); EOSINOPHILS % (AUTO) 3 % (0-10); HEMATOCRIT 41 % (40-54); HEMOGLOBIN 14.4 G/DL (13.3-17.7); LYMPHOCYTES # (AUTO) 1.7 X 10^3 (1.0-4.0); LYMPHOCYTES % (AUTO) 25 % (12-44); MEAN CORPUSCULAR HEMOGLOBIN 29 PG (25-34); MEAN CORPUSCULAR HGB CONC 35 G/DL (32-36); MEAN CORPUSCULAR VOLUME 83 FL (80-99); MONOCYTES # (AUTO) 0.5 X 10^3 (0.0-1.0); MONOCYTES % (AUTO) 7 % (0-12); NEUTROPHILS # (AUTO) 4.4 X 10^3 (1.8-7.8); NEUTROPHILS % (AUTO) 65 % (42-75); PLATELET COUNT 231 10^3/uL (130-400); RED CELL DISTRIBUTION WIDTH 13.1 % (10.0-14.5); WHITE BLOOD COUNT 6.7 10^3/uL (4.3-11.0)
[2019-03-05 17:08] LABS: ALANINE AMINOTRANSFERASE 23 U/L (0-55); ALBUMIN 4.1 GM/DL (3.2-4.5); ALKALINE PHOSPHATASE 82 U/L (40-136); BILIRUBIN,TOTAL 0.6 MG/DL (0.1-1.0); BUN/CREATININE RATIO 19; CALCIUM 8.9 MG/DL (8.5-10.1); CARBON DIOXIDE 25 MMOL/L (21-32); CHLORIDE 101 MMOL/L (98-107); CREATININE SERUM 0.96 MG/DL (0.60-1.30); GFR ESTIMATED > 60; GLUCOSE 235 MG/DL (70-105); POTASSIUM 3.4 MMOL/L (3.6-5.0); SODIUM 136 MMOL/L (135-145); TOTAL PROTEIN 6.7 GM/DL (6.4-8.2)
--- NOTE | 2019-03-05 17:48 | Diagnostic Imaging Report ---
EXAM: CHEST 1 VIEW, AP/PA ONLY. INDICATION: Shortness of air. Lightheadedness. COMPARISON: 11/10/2018. FINDINGS: Normal heart size and pulmonary vascularity. No dense consolidation, pleural effusion, or pneumothorax. No acute osseous findings. No significant change. IMPRESSION: Negative chest. Dictated by: Dictated on workstation # [id number]
[2019-03-05 18:50] VITALS: BP 126/83
--- NOTE | 2019-03-05 18:50 | NUR ---
LYDIA CARUSO JR admitted to room 419-1, with an admitting diagnosis of DEHYDRATION, DMI, KETOSIS, ORTHOSTATIC HYPOTENSION, on 03/05/19 from NM via WHEELCHAIR, accompanied by STAFF.LYDIA CARUSO JR introduced to surroundings, call light, bed controls, phone, TV, temperature control, lights, meal times, smoking policy, visitor policy, side rail policy, bathrooms and showers. Patient Rights given to patient in the handbook. LYDIA CARUSO JR verbalizes understanding that [facility] is not responsible for the loss or damage to any personal effects or valuables that are kept in the patients posession during their hospitalization.
[2019-03-05] MEDS ORDERED: ACETAMINOPHEN 500 MG TAB (TYLENOL) PO PRN (19:00)
[2019-03-05] MEDS ORDERED: ONDANSETRON 4 MG/2 ML (SDV) Z0FRAN IV PRN (19:00)
[2019-03-05] MEDS ORDERED: CATHETER FLUSH 10 ML SYR IV PRN (19:15)
[2019-03-05] MEDS ORDERED: FLU QUADRIvalent (5+ YOA) 2019-2020 (AFLURIA) 0.5 ML IM ONE (19:15)
[2019-03-05] MEDS: GABAPENTIN 400 MG (NEURONTIN) CAP PO SCH (20:30)
--- NOTE | 2019-03-05 20:30 | NUR ---
PT REPORTS HE GIVEN HIMSELF 8 UNITS OF NOVOLOG BEFORE HIS MEAL, BECAUSE THAT IS WHAT HE USUALLY DOES. THIS NURSE DISCUSSED WITH PATIENT THAT IN THE HOSPITAL, STAFF WILL TAKE HIS BLOOD SUGAR AND ADMINISTER INSULIN ORDERED, AND TO NOT SELF ADMINISTER INSULIN WHILE IN THE HOSPITAL.
[2019-03-05] MEDS: NS W/KCL 20 MEQ/L 1,000 ML IV SCH (20:33)
[2019-03-05] MEDS: HYDROcodone/APAP 5 MG/325 MG (LORTAB) TAB PO PRN (20:36)
[2019-03-05 20:59] VITALS: BP 123/77
[2019-03-05] MEDS: inSUlin ASPART (NovoLOG) 1 UNIT/0.01 ML (CHARGE PER UNIT) SC SCH (22:51)
[2019-03-05 23:50] VITALS: BP 110/70
[2019-03-06] MEDS: NS W/KCL 20 MEQ/L 1,000 ML IV SCH ×3 (00:17→11:38)
[2019-03-06] MEDS: KETOROLAC 15 MG/ML VIAL IV PRN ×2 (00:27→08:16)
[2019-03-06 04:00] VITALS: BP 98/61
[2019-03-06 06:52] LABS: BASOPHILS % (AUTO) 1 % (0-10); EOSINOPHILS # (AUTO) 0.3 10^3/uL (0.0-0.3); EOSINOPHILS % (AUTO) 6 % (0-10); HEMATOCRIT 37 % (40-54); HEMOGLOBIN 12.4 G/DL (13.3-17.7); LYMPHOCYTES # (AUTO) 2.2 X 10^3 (1.0-4.0); LYMPHOCYTES % (AUTO) 43 % (12-44); MEAN CORPUSCULAR HEMOGLOBIN 29 PG (25-34); MEAN CORPUSCULAR HGB CONC 34 G/DL (32-36); MEAN CORPUSCULAR VOLUME 85 FL (80-99); MEAN PLATELET VOLUME 10.5 FL (7.4-10.4); MONOCYTES # (AUTO) 0.3 X 10^3 (0.0-1.0); MONOCYTES % (AUTO) 6 % (0-12); NEUTROPHILS # (AUTO) 2.4 X 10^3 (1.8-7.8); NEUTROPHILS % (AUTO) 45 % (42-75); PLATELET COUNT 191 10^3/uL (130-400); RED CELL DISTRIBUTION WIDTH 13.1 % (10.0-14.5); WHITE BLOOD COUNT 5.3 10^3/uL (4.3-11.0)
[2019-03-06] MEDS: HYDROcodone/APAP 5 MG/325 MG (LORTAB) TAB PO PRN ×2 (07:08→11:38)
[2019-03-06] MEDS: inSUlin ASPART (NovoLOG) 1 UNIT/0.01 ML (CHARGE PER UNIT) SC SCH ×4 (07:08→11:34)
[2019-03-06 07:11] LABS: BUN/CREATININE RATIO 23; CALCIUM 7.4 MG/DL (8.5-10.1); CARBON DIOXIDE 25 MMOL/L (21-32); CHLORIDE 109 MMOL/L (98-107); CREATININE SERUM 0.73 MG/DL (0.60-1.30); GFR ESTIMATED > 60; GLUCOSE 199 MG/DL (70-105); POTASSIUM 3.8 MMOL/L (3.6-5.0); SODIUM 140 MMOL/L (135-145)
[2019-03-06 08:00] VITALS: BP 126/87
[2019-03-06] MEDS: GABAPENTIN 400 MG (NEURONTIN) CAP PO SCH ×2 (08:17→11:39)
[2019-03-06] MEDS ORDERED: HYDR-3812 PO (08:29)
[2019-03-06] MEDS ORDERED: FLU QUADRIvalent (5+ YOA) 2019-2020 (AFLURIA) 0.5 ML IM ONE (08:30)
--- NOTE | 2019-03-06 08:30 | NUR ---
PATIENT LISTED WHAT MEDICATIONS HE IS TAKING. HE STATES THEY ARE PRESCRIBING HIM HYDROCODONE FOR PAIN NOT CONTROLLED WITH HIS GABAPENTIN. HE USES LANTUS THAT HE RECEIVES THROUGH PALS AT [facility]. HE DOES NOT TAKE ANYTHING OTC.
[2019-03-06 12:00] VITALS: BP 115/74
[2019-03-06] MEDS ORDERED: ENOXAPARIN 40 MG/0.4 ML (LOVENOX) SYR SQ SCH (12:00)
[2019-03-06 12:09] LABS: BILIRUBIN,URINE NEGATIVE (NEGATIVE); CLARITY,URINE CLEAR; COLOR,URINE YELLOW; GLUCOSE, URINE (UA) 4+ (NEGATIVE); KETONES,URINE NEGATIVE (NEGATIVE); LEUKOCYTE ESTERASE ,URINE NEGATIVE (NEGATIVE); NITRITE,URINE NEGATIVE (NEGATIVE); PH,URINE 5 (5-9); PROTEIN,URINE NEGATIVE (NEGATIVE); UROBILINOGEN,URINE NORMAL (NORMAL)
[2019-03-06 12:17] LABS: BACTERIA,URINE NEGATIVE /HPF
--- NOTE | 2019-03-06 12:34 | Short Stay Summary ---
Discharge Summary Hospital Course Problems/Dx: (1) Dehydration after exertion Status: Resolved Assessment & Plan: Resolved with IVF overnight, feeling much better, ready for d/c. (2) Orthostatic hypotension Status: Resolved Assessment & Plan: Given IVF overnight, vitals normal in am, reporting feeling back to normal. (3) Diabetes mellitus, insulin dependent (IDDM), uncontrolled Status: Chronic Assessment & Plan: Resumed home insulin, glucose trending down from 277 at max. Final Diagnosis: See problem list Hospital Course Date of Admission: Mar 05, 2019 at 18:20 Admission Diagnosis : Family Physician/Provider: Ye/Lars,[facility] Date of Discharge: 03/06/19 Discharge Diagnosis: See problems Hospital Course: See problems Labs and Pending Lab Test: Laboratory Tests 03/05/19 15:47: Glucometer 122H 03/05/19 16:15: Urine Color AMBERH, Urine Clarity CLEAR, Urine pH 5, Urine Specific [place] 1.020, Urine Protein 3+H, Urine Glucose (UA) 1+H, Urine Ketones 1+H, Urine Nitrite NEGATIVE, Urine Bilirubin 1+H, Urine Urobilinogen 1, Urine Leukocyte Esterase 1+H, Urine RBC (Auto) NEGATIVE, Urine RBC NONE, Urine WBC 0-2, Urine Squamous Epithelial Cells NONE, Urine Crystals NONE, Urine Bacteria NEGATIVE, Urine Casts NONE, Urine Mucus NEGATIVE, Urine Culture Indicated NO, Urine Opiates Screen NEGATIVE, Urine Oxycodone Screen NEGATIVE, Urine Methadone Screen NEGATIVE, Urine Propoxyphene Screen NEGATIVE, Urine Barbiturates Screen NEGATIVE, Ur Tricyclic Antidepressants Screen NEGATIVE, Urine Phencyclidine Screen NEGATIVE, Urine Amphetamines Screen NEGATIVE, Urine Methamphetamines Screen NEGATIVE, Urine Benzodiazepines Screen NEGATIVE, Urine Cocaine Screen NEGATIVE, Urine Cannabinoids Screen POSITIVEH 03/05/19 16:40: White Blood Count 6.7, Red Blood Count 4.92, Hemoglobin 14.4, Hematocrit 41, Mean Corpuscular Volume 83, Mean Corpuscular Hemoglobin 29, Mean Corpuscular Hemoglobin Concent 35, Red Cell Distribution Width 13.1, Platelet Count 231, Mean Platelet Volume 10.0, Neutrophils (%) (Auto) 65, Lymphocytes (%) (Auto) 25, Monocytes (%) (Auto) 7, Eosinophils (%) (Auto) 3, Basophils (%) (Auto) 1, Neutrophils # (Auto) 4.4, Lymphocytes # (Auto) 1.7, Monocytes # (Auto) 0.5, Eosinophils # (Auto) 0.2, Basophils # (Auto) 0.0, Sodium Level 136, Potassium Level 3.4L, Chloride Level 101, Carbon Dioxide Level 25, Anion Gap 10, Blood Urea Nitrogen 18, Creatinine 0.96, Estimat Glomerular Filtration Rate > 60, BUN/Creatinine Ratio 19, Glucose Level 235H, Calcium Level 8.9, Corrected Calcium 8.8, Total Bilirubin 0.6, Aspartate Amino Transf (AST/SGOT) 16, Alanine Aminotransferase (ALT/SGPT) 23, Alkaline Phosphatase 82, Total Protein 6.7, Albumin 4.1 03/05/19 22:34: Glucometer 277H 03/06/19 05:39: White Blood Count 5.3, Red Blood Count 4.32L, Hemoglobin 12.4L, Hematocrit 37L, Mean Corpuscular Volume 85, Mean Corpuscular Hemoglobin 29, Mean Corpuscular Hemoglobin Concent 34, Red Cell Distribution Width 13.1, Platelet Count 191, Mean Platelet Volume 10.5H, Neutrophils (%) (Auto) 45, Lymphocytes (%) (Auto) 43, Monocytes (%) (Auto) 6, Eosinophils (%) (Auto) 6, Basophils (%) (Auto) 1, Neutrophils # (Auto) 2.4, Lymphocytes # (Auto) 2.2, Monocytes # (Auto) 0.3, E osinophils # (Auto) 0.3, Basophils # (Auto) 0.0, Sodium Level 140, Potassium Level 3.8, Chloride Level 109H, Carbon Dioxide Level 25, Anion Gap 6, Blood Urea Nitrogen 17, Creatinine 0.73, Estimat Glomerular Filtration Rate > 60, BUN/Cr eatinine Ratio 23, Glucose Level 199H, Calcium Level 7.4L 03/06/19 06:32: Glucometer 205H 03/06/19 10:37: Glucometer 173H 03/06/19 12:00: Urine Color YELLOW, Urine Clarity CLEAR, Urine pH 5, Urine Specific [place] 1. 020, Urine Protein NEGATIVE, Urine Glucose (UA) 4+H, Urine Ketones NEGATIVE, Urine Nitrite NEGATIVE, Urine Bilirubin NEGATIVE, Urine Urobilinogen NORMAL, Urine Leukocyte Esterase NEGATIVE, Urine RBC (Auto) NEGATIVE, Urine RBC NONE, Urine WBC NONE, Urine Squamous Epithelial Cells NONE, Urine Crystals NONE, Urine Bacteria NEGATIVE, Urine Casts NONE, Urine Mucus SMALLH, Urine Culture Indicated NO Home Meds Active Reported Hydrocodone-Acetamin 5-325 mg (Hydrocodone/Acetaminophen) 1 Each Tablet 1 Tab PO Q6H PRN Gabapentin 800 Mg Tablet 800 Mg PO QID Novolog Flexpen (Insulin Aspart) 300 Units/3 Ml Solution 8 Units SQ AC Lantus Solostar (Insulin Glargine,Hum.rec.anlog) 100 Unit/1 Ml Insuln.pen 45 Unit SQ HS Assessment/Pt Instructions Follow up with Martinez Arce on 03/12 at 2:40 pm. Discharge Instructions Discharge Diet: ADA Diet Activity as Tolerated: Yes Discharge Physical Examination General Appearance: Alert, No Acute Distress Respiratory: Clear to Auscultation, Normal Air Movement Cardiovascular: Regular Rate, No Murmurs Abdominal: Normal Bowel Sounds, Soft, No Tenderness Extremities: No Edema Neuro: Normal Speech Psych/Mental Status: Mental Status NL Allergies: Coded Allergies: tramadol (Verified Adverse Reaction, Mild, N/V, 12/21/14) Copy Copies To 1: Mratinez Arce APRN Discharge Summary Date of Admission Mar 05, 2019 at 18:20 Date of Discharge Clinical Quality Measures DVT/VTE Risk/Contraindication: Risk Factor Score Per Nursin RFS Level Per Nursing on Admit: 2=Moderate CARRIE NELSON MD Mar 06, 2019 12:34
[2019-03-06 13:35] VITALS: BP 115/74
--- NOTE | 2019-03-06 13:35 | NUR ---
LYDIA CARUSO JR demonstrates understanding of discharge instructions and accurately returns instructions upon questioning. Copy of Post-Discharge Instructions given to pt. LYDIA CARUSO JR is able to manage continuing needs after discharge. Patients belongings returned to pt. Patient discharged from 419-1 on 03/06/10 at 1335. LYDIA CARUSO JR left floor via ambulatory, accompanied by staff and Dad per auto.
== END 2019-03-06 12:28 | disposition home or self-care (01) ==
LOC: EDUNIT# 15:36 → ER 15:37 → 4TH 18:20 → UNDOADMOB 18:20 → 4TH 18:50 → UNDODISOB 03-06 13:35
PROVIDERS: ADMIT Family Medicine; ATTEND Family Medicine
DX: E86.0 Dehydration (principal); I95.1 Orthostatic hypotension; J44.9 Chronic obstructive pulmonary disease, unspecified; I10 Essential (primary) hypertension; M19.90 Unspecified osteoarthritis, unspecified site; M41.9 Scoliosis, unspecified; G89.29 Other chronic pain; M54.9 Dorsalgia, unspecified; F32.9 Major depressive disorder, single episode, unspecified; E11.42 Type 2 diabetes mellitus with diabetic polyneuropathy; N15.9 Renal tubulo-interstitial disease, unspecified; Z79.4 Long term (current) use of insulin; Z79.891 Long term (current) use of opiate analgesic; Z79.899 Other long term (current) drug therapy; Z88.8 Allergy status to other drugs, medicaments and biological substances; Z82.49 Family history of ischemic heart disease and other diseases of the circulatory system; Z83.3 Family history of diabetes mellitus
CPT/HCPCS: 36415; 71045; 80048; 80053; 80306; 81000; 82962; 85025; 96360; 96361; G0378

== ENCOUNTER 2019-12-10 16:46 | Emergency (ER) | payer SELFPAY ==
[~2019-12-10] VITALS: Ht 177 cm; Wt 95.0 kg
[2019-12-10 17:29] LABS: BASOPHILS % (AUTO) 0 % (0-10); EOSINOPHILS # (AUTO) 0.3 10^3/uL (0.0-0.3); EOSINOPHILS % (AUTO) 3 % (0-10); HEMATOCRIT 43 % (40-54); HEMOGLOBIN 15.1 G/DL (13.3-17.7); LYMPHOCYTES # (AUTO) 2.5 X 10^3 (1.0-4.0); LYMPHOCYTES % (AUTO) 26 % (12-44); MEAN CORPUSCULAR HEMOGLOBIN 29 PG (25-34); MEAN CORPUSCULAR HGB CONC 35 G/DL (32-36); MEAN CORPUSCULAR VOLUME 84 FL (80-99); MEAN PLATELET VOLUME 9.8 FL (7.4-10.4); MONOCYTES # (AUTO) 0.7 X 10^3 (0.0-1.0); MONOCYTES % (AUTO) 7 % (0-12); NEUTROPHILS % (AUTO) 64 % (42-75); PLATELET COUNT 243 10^3/uL (130-400); RED CELL DISTRIBUTION WIDTH 12.9 % (10.0-14.5); WHITE BLOOD COUNT 9.5 10^3/uL (4.3-11.0)
[2019-12-10] MEDS ORDERED: NS IV 1000 ML 1,000 ML IV SCH ×2 (17:30→18:15)
[2019-12-10 17:41] LABS: ALBUMIN 4.5 GM/DL (3.2-4.5); CHLORIDE 99 MMOL/L (98-107); POTASSIUM 3.8 MMOL/L (3.6-5.0); SODIUM 136 MMOL/L (135-145)
[2019-12-10 17:41] LABS: BILIRUBIN,URINE NEGATIVE (NEGATIVE); CLARITY,URINE CLEAR; COLOR,URINE YELLOW; GLUCOSE, URINE (UA) 3+ (NEGATIVE); KETONES,URINE NEGATIVE (NEGATIVE); LEUKOCYTE ESTERASE ,URINE NEGATIVE (NEGATIVE); NITRITE,URINE NEGATIVE (NEGATIVE); PROTEIN,URINE NEGATIVE (NEGATIVE)
[2019-12-10 17:42] LABS: CALCIUM 9.5 MG/DL (8.5-10.1)
[2019-12-10 17:43] LABS: GLUCOSE 285 MG/DL (70-105); TOTAL PROTEIN 7.3 GM/DL (6.4-8.2)
--- NOTE | 2019-12-10 17:43 | ED General ---
General Chief Complaint: Dizziness/Syncope Stated Complaint: DIZZY Nursing Triage Note: ARRIVED VIA AMB WITH COMPLAINTS OF DIZZINESS AND FALLING OVER TWICE AT WORK WHILE BEING OUT IN THE HEAT. Nursing Sepsis Screen: No Definite Risk Source of Information: Patient Exam Limitations: No Limitations History of Present Illness Date Seen by Provider: Dec 10, 2019 Time Seen by Provider: 17:41 Initial Comments To ER with reports of dizziness and that he has fallen twice at work today. He reports of general weakness and an exacerbation of the neuropathy in both of his legs. He is a poorly controlled type I diabetic. He's been working outside in the sun all day today. His initial blood sugar this morning was 300, he took 5 units of insulin but because he was outside working all day took no additional i nsulin. Timing/Duration: 12 Hours Severity: Moderate Associated Systoms: Nausea/Vomiting, Weakness Allergies and Home Medications Allergies Coded Allergies: tramadol (Verified Adverse Reaction, Mild, N/V, 12/21/14) Home Medications Gabapentin 800 Mg Tablet, 800 MG PO QID, (Reported) Hydrocodone Bit/Acetaminophen 1 Each Tablet, 1 TAB PO Q6H PRN for PAIN-MODERATE, (Reported) Insulin Aspart 300 Units/3 Ml Solution, 8 UNITS SQ AC, (Reported) Insulin Glargine,Hum.rec.anlog 100 Unit/1 Ml Insuln.pen, 45 UNIT SQ HS, (Reported) Patient Home Medication List Home Medication List Reviewed: Yes Review of Systems Review of Systems Constitutional: see HPI; No chills, No fever; weakness EENTM: see HPI Respiratory: no symptoms reported Cardiovascular: no symptoms reported Gastrointestinal: nausea (are) Genitourinary: no symptoms reported Musculoskeletal: no symptoms reported Skin: no symptoms reported Psychiatric/Neurological: No Symptoms Reported Hematologic/Lymphatic: No Symptoms Reported Immunological/Allergic: no symptoms reported Past Xnatvey-Hrzuab-Bazonn Hx Patient Social History Alcohol Use: Denies Use Recreational Drug Use: Yes Drug of Choice: POT Type Used: Smokeless Tobacco Former Smoker, Quit: Aug 14, 2017 2nd Hand Smoke Exposure: No Recent Foreign Travel: No Contact w/Someone Who Travel: No Recent Infectious Disease Expo: No Recent Hopitalizations: No Immunizations Up To Date Tetanus Booster (TDap): Unknown Date of Pneumonia Vaccine: Aug 27, 2011 Date of Influenza Vaccine: May 21, 2014 Seasonal Allergies Seasonal Allergies: No Past Medical History Surgeries: No Respiratory: Yes (copd dx by patient) COPD Currently Using CPAP: No Currently Using BIPAP: No Cardiac: Yes Hypertension Neurological: Yes Neuropathy Reproductive Disorders: No Sexually Transmitted Disease: No HIV/AIDS: No Genitourinary: Yes Kidney Infection Gastrointestinal: Yes (ABD SWELLING, ELEVATED LIVER ENZYMES) Musculoskeletal: Yes Arthritis, Scoliosis, Chronic Back Pain Endocrine: Yes (EXTREME NON-COMPLIANCE, MULTIPLE EPISODES OF DKA) Diabetes, Insulin dep Hearing Impairment: Denies Cancer: No Psychosocial: Yes (POLYSUBSTANCE ABUSE) Depression Integumentary: No Blood Disorders: No Adverse Reaction/Blood Tranf: No Family Medical History Alcoholism 19 FATHER G8 BROTHER Congenital heart disease 19 FATHER Family history: Cardiovascular disease 19 FATHER, Onset:40's - 50 Family history: Diabetes mellitus 19 MOTHER Family history: Hypertension 19 FATHER Heart disease 19 FATHER History of - respiratory disease 19 FATHER History of drug abuse 19 MOTHER Hypercholesterolemia 19 FATHER Myocardial infarction 19 FATHER Seizure disorder 19 FATHER No Family History of: Abdominal aortic aneurysm Eugene's disease Cancer Congestive heart failure Cystic fibrosis Dementia Dysphagia Family history: Allergy Family history: Alzheimer's disease Family history: Arthritis Family history: Asthma Family history: Breast disease Family history: Coronary thrombosis Family history: Gastrointestinal disease Family history: Glaucoma Family history: Osteoporosis Family history: Thyroid disorder Headache Hearing loss Hereditary disease History of - anemia History of - disorder Human immunodeficiency virus (HIV) seropositivity Infertile Kidney disease Malignant neoplasm of lung Parkinson's disease Prostate cancer Psychotic disorder Stroke Tuberculosis Visual impairment No Pertinent Family Hx, Heart Disease, Diabetes, Hypertension, Lung Disease, P sychiatric Problems Physical Exam Vital Signs Vital Signs - First Documented 12/10/19 17:20 Temp 36.6 Pulse 87 Resp 16 B/P (MAP) 115/87 (96) Pulse Ox 99 O2 Delivery Room Air Capillary Refill : Less Than 3 Seconds Height, Weight, BMI Height: 5'10.00" Weight: 240lbs. 0oz. [id number]; 30.00 BMI Method:Stated General Appearance: No Apparent Distress, WD/WN Eyes: Bilateral Eye Normal Inspection, Bilateral Eye PERRL, Bilateral Eye EOMI HEENT: PERRL/EOMI, TMs Normal Neck: Full Range of Motion, Normal Inspection Respiratory: No Accessory Muscle Use, No Respiratory Distress Gastrointestinal: Normal Bowel Sounds, Non Tender, Soft Extremity: Normal Capillary Refill, Normal Inspection Neurologic/Psychiatric: Alert, Oriented x3 Skin: Normal Color, Warm/Dry Progress/Results/Core Measures Suspected Sepsis Recent Fever Within 48 Hours: No Infection Criteria Present: None New/Unexplained Altered Menta: No Sepsis Screen: No Definite Risk SIRS Temperature: Pulse: 87 Respiratory Rate: 16 Laboratory Tests 12/10/19 17:20: White Blood Count 9.5 Blood Pressure 115 /87 Mean: 96 Laboratory Tests 12/10/19 17:20: Creatinine 1.05, Platelet Count 243, Total Bilirubin 0.8 Results/Orders Lab Results Laboratory Tests Test 12/10/19 17:20 12/10/19 17:24 12/10/19 17:30 Range/Units White Blood Count 9.5 4.3-11.0 10^3/uL Red Blood Count 5.15 4.35-5.85 10^6/uL Hemoglobin 15.1 13.3-17.7 G/DL Hematocrit 43 40-54 % Mean Corpuscular Volume 84 80-99 FL Mean Corpuscular Hemoglobin 29 25-34 PG Mean Corpuscular Hemoglobin Concent 35 32-36 G/DL Red Cell Distribution Width 12.9 10.0-14.5 % Platelet Count 243 130-400 10^3/uL Mean Platelet Volume 9.8 7.4-10.4 FL Neutrophils (%) (Auto) 64 42-75 % Lymphocytes (%) (Auto) 26 12-44 % Monocytes (%) (Auto) 7 0-12 % Eosinophils (%) (Auto) 3 0-10 % Basophils (%) (Auto) 0 0-10 % Neutrophils # (Auto) 6.0 1.8-7.8 X 10^3 Lymphocytes # (Auto) 2.5 1.0-4.0 X 10^3 Monocytes # (Auto) 0.7 0.0-1.0 X 10^3 Eosinophils # (Auto) 0.3 0.0-0.3 10^3/uL Basophils # (Auto) 0.0 0.0-0.1 10^3/uL Sodium Level 136 135-145 MMOL/L Potassium Level 3.8 3.6-5.0 MMOL/L Chloride Level 99 98-107 MMOL/L Carbon Dioxide Level 26 21-32 MMOL/L Anion Gap 11 5-14 MMOL/L Blood Urea Nitrogen 12 7-18 MG/DL Creatinine 1.05 0.60-1.30 MG/DL Estimat Glomerular Filtration Rate > 60 BUN/Creatinine Ratio 11 Glucose Level 285 H 70-105 MG/DL Calcium Level 9.5 8.5-10.1 MG/DL Corrected Calcium 9.1 8.5-10.1 MG/DL Total Bilirubin 0.8 0.1-1.0 MG/DL Aspartate Amino Transf (AST/SGOT) 19 5-34 U/L Alanine Aminotransferase (ALT/SGPT) 25 0-55 U/L Alkaline Phosphatase 90 40-136 U/L Total Protein 7.3 6.4-8.2 GM/DL Albumin 4.5 3.2-4.5 GM/DL Beta-Hydroxybutyrate (Chem panel) 0.51 H 0.00-0.27 MMOL/L Glucometer 292 H 70-110 MG/DL Urine Color YELLOW Urine Clarity CLEAR Urine pH 6.0 5-9 Urine Specific [place] <=1.005 1.016-1.022 Urine Protein NEGATIVE NEGATIVE Urine Glucose (UA) 3+ H NEGATIVE Urine Ketones NEGATIVE NEGATIVE Urine Nitrite NEGATIVE NEGATIVE Urine Bilirubin NEGATIVE NEGATIVE Urine Urobilinogen 0.2 < = 1.0 MG/DL Urine Leukocyte Esterase NEGATIVE NEGATIVE Urine RBC (Auto) NEGATIVE NEGATIVE Urine RBC NONE /HPF Urine WBC NONE /HPF Urine Squamous Epithelial Cells RARE /HPF Urine Crystals NONE /LPF Urine Bacteria NEGATIVE /HPF Urine Casts NONE /LPF Urine Mucus NEGATIVE /LPF Urine Culture Indicated NO Urine Opiates Screen NEGATIVE NEGATIVE Urine Oxycodone Screen NEGATIVE NEGATIVE Urine Methadone Screen NEGATIVE NEGATIVE Urine Propoxyphene Screen NEGATIVE NEGATIVE Urine Barbiturates Screen NEGATIVE NEGATIVE Ur Tricyclic Antidepressants Screen NEGATIVE NEGATIVE Urine Phencyclidine Screen NEGATIVE NEGATIVE Urine Amphetamines Screen NEGATIVE NEGATIVE Urine Methamphetamines Screen NEGATIVE NEGATIVE Urine Benzodiazepines Screen NEGATIVE NEGATIVE Urine Cocaine Screen NEGATIVE NEGATIVE Urine Cannabinoids Screen POSITIVE H NEGATIVE My Orders Orders - ZACHERY BAKER HOST Cbc With Automated Diff (12/10/19 17:18) Comprehensive Metabolic Panel (12/10/19 17:18) Ua Culture If Indicated (12/10/19 17:18) Drug Screen Stat (Urine) (12/10/19 17:18) Ed Iv/Invasive Line Start (12/10/19 17:18) Ns Iv 1000 Ml (Sodium Chloride 0.9%) (12/10/19 17:30) Accucheck Stat ONCE (12/10/19 17:19) Beta Hydroxybutyrate (12/10/19 17:19) Ondansetron Injection (Zofran Injectio (12/10/19 17:45) Hydrocodone/Apap 5/325 Tablet (Lortab 5 (12/10/19 18:15) Ns Iv 1000 Ml (Sodium Chloride 0.9%) (12/10/19 18:15) Medications Given in ED Current Medications Medications Dose Ordered Sig/Fer Route Start Time Stop Time Status Last Admin Dose Admin Acetaminophen/ Hydrocodone Bitart 1 tab ONCE ONCE PO 12/10/19 18:15 12/10/19 18:16 DC 12/10/19 18:13 1 TAB Ondansetron HCl 8 mg ONCE ONCE IVP 12/10/19 17:45 12/10/19 17:46 DC 12/10/19 17:51 8 MG Vital Signs/I&O 12/10/19 17:20 Temp 36.6 Pulse 87 Resp 16 B/P (MAP) 115/87 (96) Pulse Ox 99 O2 Delivery Room Air Capillary Refill : Less Than 3 Seconds Blood Pressure Mean: 96 Point of Care Testing Finger Stick Blood Glucose: 292 Departure Impression Primary Impression: Nausea Additional Impressions: Weakness Heat exhaustion Disposition: HOME, SELF-CARE Condition: Stable Departure-Patient Inst. Decision time for Depature: 18:12 Referrals: [facility] (PCP/Family) Primary Care Physician Patient Instructions: Generalized Weakness, Heat Exhaustion and Heat Stroke (DC) ZACHERY BAKER APRN Dec 10, 2019 17:43
[2019-12-10 17:44] LABS: CARBON DIOXIDE 26 MMOL/L (21-32)
[2019-12-10 17:45] LABS: BILIRUBIN,TOTAL 0.8 MG/DL (0.1-1.0)
[2019-12-10] MEDS ORDERED: ONDANSETRON 4 MG/2 ML (SDV) Z0FRAN IVP ONE (17:45)
[2019-12-10 17:47] LABS: ALKALINE PHOSPHATASE 90 U/L (40-136); CREATININE SERUM 1.05 MG/DL (0.60-1.30); GFR ESTIMATED > 60
[2019-12-10 17:48] LABS: BACTERIA,URINE NEGATIVE /HPF; SQUAMOUS EPITHELIAL CELL,UR RARE /HPF
[2019-12-10 17:48] LABS: BUN/CREATININE RATIO 11
[2019-12-10 17:50] LABS: ALANINE AMINOTRANSFERASE 25 U/L (0-55)
[2019-12-10 17:51] LABS: AMPHETAMINE SCREEN, URINE NEGATIVE (NEGATIVE); BARBITURATE SCREEN URINE NEGATIVE (NEGATIVE); BENZODIAZEPINES SCREEN URINE NEGATIVE (NEGATIVE); CANNABINOID SCREEN, URINE POSITIVE (NEGATIVE); COCAINE SCREEN URINE NEGATIVE (NEGATIVE); METHADONE STAT NEGATIVE (NEGATIVE); METHAMPHETAMINE SCREEN URINE S NEGATIVE (NEGATIVE); OPIATE SCREEN URINE NEGATIVE (NEGATIVE); OXYCODONE STAT NEGATIVE (NEGATIVE); PROPOXYPHENE STAT NEGATIVE (NEGATIVE); TRICYCLIC ANTIDEPRESSANTS SCRE NEGATIVE (NEGATIVE)
--- NOTE | 2019-12-10 18:10 | NUR ---
Sandro notified of pt complaints of pain in his legs due to neuropathy and that he would like his daily med of [place] 5 mg
[2019-12-10] MEDS ORDERED: HYDROcodone/APAP 5 MG/325 MG (LORTAB) TAB PO ONE (18:15)
--- NOTE | 2019-12-10 18:54 | NUR ---
REPORT GIVEN TO Roman COOPER.
[2019-12-10 19:33] VITALS: BP 129/86
== END 2019-12-10 19:37 | disposition home or self-care (01) ==
LOC: EDUNIT# 16:46 → ER 16:47
DX: T67.5XXA Heat exhaustion, unspecified, initial encounter (principal); R29.6 Repeated falls; E10.40 Type 1 diabetes mellitus with diabetic neuropathy, unspecified; I10 Essential (primary) hypertension; E10.10 Type 1 diabetes mellitus with ketoacidosis without coma; G89.29 Other chronic pain; M54.9 Dorsalgia, unspecified; Z79.891 Long term (current) use of opiate analgesic; Z91.19 Patient's noncompliance with other medical treatment and regimen; Z79.4 Long term (current) use of insulin; Z88.5 Allergy status to narcotic agent; Z87.891 Personal history of nicotine dependence; Z82.49 Family history of ischemic heart disease and other diseases of the circulatory system; X30.XXXA Exposure to excessive natural heat, initial encounter
CPT/HCPCS: 36415; 80053; 80306; 81000; 82010; 82962; 85025

== ENCOUNTER → 2019-12-15 | Outpatient (CLI) | payer SELFPAY ==
--- NOTE | 2019-12-15 16:00 | Diagnostic Imaging Report ---
PROCEDURE: CT head without contrast. TECHNIQUE: Multiple contiguous axial images were obtained through the brain without the use of intravenous contrast. Auto Exposure Controls were utilized during the CT exam to meet ALARA standards for radiation dose reduction. INDICATION: Traumatic brain injury, headaches, dizziness, blurred vision, memory loss. CORRELATION: 12/04/2011 FINDINGS: There is no midline shift or mass effect. The ventricles and sulci are unremarkable. No evidence for acute intracranial hemorrhage, abnormal extra-axial fluid collections or cerebral edema is present. Basal ganglia calcifications are present. The basilar cisterns are unremarkable. The bony calvarium is intact. The visualized paranasal sinuses and mastoid air cells are clear. IMPRESSION: Negative appearing noncontrast CT of the head. Given history, if further evaluation is desired, MRI would be recommended. Dictated by: Dictated on workstation # [id number]
== END ==
LOC: RAD 15:14
PROVIDERS: ATTEND Nurse Practitioner Community Health
DX: S06.9X0A Unspecified intracranial injury without loss of consciousness, initial encounter (principal); F39 Unspecified mood [affective] disorder; X58.XXXA Exposure to other specified factors, initial encounter
CPT/HCPCS: 70450

== ENCOUNTER 2020-02-17 11:17 | Outpatient (CLI) | payer OTHER ==
[~2020-02-17] VITALS: Ht 177.8 cm; Wt 90.9 kg
[~2020-02-17 11:17] MED LIST changes: +FAMO-119 PO; +ONDA4TAB11 SL
[2020-02-17] MEDS ORDERED: INSU100I29 SQ (13:48)
== END 2020-02-17 13:55 | disposition home or self-care (01) ==
LOC: PREOP 11:17
PROVIDERS: ATTEND Surgery
DX: Z01.818 Encounter for other preprocedural examination (principal)

== ENCOUNTER 2020-02-20 10:28 | Day surgery (SDC) | payer OTHER ==
[2020-02-20] VITALS (12 sets, daily range): BP systolic 109–147; BP diastolic 63–97
[~2020-02-20] VITALS: Ht 177.8 cm; Wt 90.9 kg
[~2020-02-20 10:28] MED LIST changes: +INSU100I29 SQ
[2020-02-20] MEDS ORDERED: BUP/EPI 0.25% 1:200,000 (MARCAINE) 30 ML VIAL ONE (10:45)
[2020-02-20] MEDS ORDERED: ceFAZolin 2 GM IV Premixed 50 ML IV ONE (11:15)
[2020-02-20] MEDS ORDERED: CATHETER FLUSH 10 ML SYR IV PRN (11:15)
[2020-02-20] MEDS: LACTATED RINGERS 1,000 ML IV PRN ×2 (11:15→13:09)
[2020-02-20] MEDS ORDERED: fentaNYL INJECTION 100 MCG/2 ML AMP ONE ×2 (11:35→13:01)
--- NOTE | 2020-02-20 11:35 | Progress Note-Pre Operative ---
Pre-Operative Progress Note H&P Reviewed The H&P was reviewed, patient examined and no changes noted. Time Seen by Provider: 11:31 Date H&P Reviewed: Feb 20, 2020 Time H&P Reviewed: 11:32 Pre-Operative Diagnosis: Cholelithiasis/Cholecystitis LUPILLO ROCHA DO Feb 20, 2020 11:35
[2020-02-20] MEDS ORDERED: LIDOCAINE PF 2% 5 ML (XYLOCAINE) VIAL ONE (11:36)
[2020-02-20] MEDS ORDERED: MIDAZOLAM 2 MG/2 ML (VERSED) VIAL ONE (11:36)
[2020-02-20] MEDS ORDERED: proPOfol 200 MG/20 ML (DIPRIVAN) VIAL IV ONE (11:36)
[2020-02-20] MEDS ORDERED: SEVOFLURANE (ULTANE) 15 ML INHAL SOLN ONE ×2 (11:42→12:23)
[2020-02-20] MEDS ORDERED: ONDANSETRON 4 MG/2 ML (SDV) Z0FRAN ONE ×2 (11:42→13:01)
[2020-02-20] MEDS ORDERED: ROCURONIUM 10 MG/ML 5 ML SYRINGE IV ONE (11:42)
[2020-02-20] MEDS ORDERED: GLYCOPYRROLATE 0.2 MG/ML (ROBINUL) 2 ML VIAL ONE (11:43)
[2020-02-20] MEDS ORDERED: NEOSTIGMINE 3 MG/3 ML VIAL ONE (11:43)
--- NOTE | 2020-02-20 12:38 | Progress Note-Post Operative ---
Post-Operative Progess Note Surgeon (s)/Generator Operator Straight Bevel Gear (s) Surgeon LUPILLO ROCHA DO Generator Operator Straight Bevel Gear: Maggy Pre-Operative Diagnosis Cholelithiasis/Cholecystitis Post-Operative Diagnosis same Procedure & Operative Findings Date of Procedure 02/20/20 Procedure Performed/Findings PROCEDURE: Laparoscopic cholecystectomy with intraoperative cholangiogram. COMPLICATIONS: None. PROCEDURE: The patient was taken to the operating suite and was prepped and draped in sterile fashion. A surgical pause was performed. Just superior to the umbilicus, a 12 mm incision was made. Dissection was taken down to the fascia, which was then scored and grasped with a Hector and the abdomen was then entered. A 0 Vicryl suture was placed in a [id number] fashion and a Dunham trocar was placed and secured. Pneumoperitoneum was achieved. A 5mm trochar place in the subxyphoid and 2 in the right upper quadrant. The gallbladder was then grasped and elevated; noted to have some edema around it, indicating at least previous episodes of cholecystitis. The cystic duct, and cystic artery were then dissected out. Clip was placed on the distal portion of the cystic duct which was then partially transected. An arrow catheter was inserted into the duct. The cholangiogram was then performed. No filing defects and contrast made its way into the duodenum. Catheter removed. Clips were placed on proximal portion of the cystic duct and then the duct was then transected. Clips were placed along the proximal and distal portion of the cystic artery which was then transected. Hook cautery was used to dissect the gallbladder from the gallbladder fossa achieving hemostasis. The gallbladder was placed in an Endobag and removed through the 12 mm trocar site. The abdomen was then reinspected. Copious amounts of irrigation were used to irrigate the abdomen and there were no signs of active bleeding. Hemostasis had been achieved. The 12 mm fascial defect was then closed with 0 Vicryl suture that had been placed in a [id number] fashion. The abdomen was then desufflated, the trocars were removed. The abdomen was then washed and dried. The skin was then closed using 4-0 Monocryl in a subcuticular fashion. The abdomen was washed and dried and Skin Affix was place over incisions. Patient tolerated the procedure well without any complications and was taken to the recovery room in stable condition. Dr. Winter assisted on this case helping to make incisions, close incisions, identify anatomy and hold anatomy out of the way. Anesthesia Type GET Estimated Blood Loss Estimated blood loss (mL): scant Specimens/Packing Specimens Removed GB and contents LUPILLO ROCHA DO Feb 20, 2020 12:38
[2020-02-20] MEDS ORDERED: HYDR-4226 PO (12:39)
--- NOTE | 2020-02-20 12:40 | Discharge Inst-Surgical ---
Discharge Inst-Surgical Depart Medication/Instructions New, Converted or Re-Newed RX: RX Given to Pt/Family Patient Instructions Follow up Appt: Make appointment for 1 week. [phone] Instructions: No lifting greater than 20 pounds. No strenuous activity. May shower in 24 hours, no tub bath or soaking. Use incentive spirometer at home as directed. No Smoking Skin/Wound Care: May remove bandages in am. You need to leave the Dermabond on incision it will fall off on it's own. Symptoms to Report: Appetite Changes, Extremity Discoloration, Numbness/Tingling, Swelling Increased, Bleeding Excessive, Eyesight Changes, Pain Increased, Urine Color Change, Constipation(Persistent), Fever over 101 degree F, Pain/Pressure in chest, Urinating Difficulty, Cough Up/Vomit Blood, Heart Beat Irreg/Pounding, Pain/Pressure in jaw, Cramps in feet or legs, Lightheadedness, Pain/Pressure in shoulder, Diarrhea(Persistent), Memory Changes Suddenly, Questions/Concerns, Weight gain consecutive days, Dizziness/Fainting, Nausea/Vomiting, Shortness of Breath, Weight gain over 2 pounds If questions or concerns contact your physician Or seek help at emergency department. Activity Activity as Tolerated: Yes Activity Instructions: Avoid Stress to Incision Driving Instructions: No Driving/Refer to Diet Discharge Diet: Avoid Fatty Foods, Low Fat/Low Cholesterol Diet After 24 Hours: Clear Liquid if Nauseous If Any Problems/Questions/Issu: Contact Your Physician, Go to Emergency Room Skin/Wound Care Infection Signs and Symptoms: Increased Redness, Foul Odor of Wound, Increased Drainage, Skin Itchy or Has a Rash, Increased Swelling, Temperature Above 101 F Wound Care Comment: heating pad to shoulder or neck tonight for pain Bathing Instructions: Shower Stitches/Vass/Dermabond Dis: Dermabond Ice Pack: Ice On and Off Site (at incisions as needed for pain) LUPILLO ROCHA DO Feb 20, 2020 12:40
[2020-02-20] MEDS ORDERED: IOPAMIDOL 61% 30 ML (ISOVUE 300) VIAL ONE (12:56)
[2020-02-20] MEDS ORDERED: MEPERIDINE (DEMEROL) INJ 50 MG/ML IVP ONE (13:00)
[2020-02-20] MEDS ORDERED: ONDANSETRON 4 MG/2 ML (SDV) Z0FRAN IVP PRN (13:00)
[2020-02-20] MEDS ORDERED: fentaNYL INJECTION 100 MCG/2 ML AMP IVP ONE (13:00)
[2020-02-20] MEDS ORDERED: PROMETHAZINE INJ 25 MG/ML (PHENERGAN) AMP IVP ONE (13:00)
--- NOTE | 2020-02-20 13:42 | Diagnostic Imaging Report ---
INDICATION: Fluoroscopy for intrahepatic cholangiogram. Fluoroscopy was provided in the OR during intraoperative plain cholangiogram. 7 seconds of fluoroscopic time was utilized. Images demonstrate contrast being injected via the cystic duct remnant. Intrahepatic and extrahepatic bile ducts are patent. No filling defects are seen. Contrast flows into the duodenum. IMPRESSION: Fluoroscopy for intraoperative cholangiogram. Dictated by: Dictated on workstation # [id number]
--- NOTE | 2020-02-20 13:42 | NUR ---
Patient back to [facility] [place]-11 postoperatively, rates pain 12/10. Patient is slightly drowsy, reported patient has been resting comfortably. Reported that patient has received a total of 100mcg of Fentanyl during the stay in recovery. Will continue to monitor patient at this time.
[2020-02-20] MEDS ORDERED: HYDROcodone/APAP 5 MG/325 MG (LORTAB) TAB ONE (14:05)
[2020-02-20] MEDS ORDERED: HYDROcodone/APAP 5 MG/325 MG (LORTAB) TAB PO ONE (14:15)
--- NOTE | 2020-02-20 14:44 | Anesthesia-General Post-Op ---
General Patient Condition Mental Status/LOC: Same as Preop Cardiovascular: Satisfactory Nausea/Vomiting: Absent Respiratory: Satisfactory Pain: Controlled Complications: Absent Post Op Complications Complications None Follow Up Care/Instructions Patient Instructions None needed. Anesthesia/Patient Condition Patient Condition Patient is doing well, no complaints, stable vital signs, no apparent adverse anesthesia problems. No complications reported per nursing. MARIA C JORGE CRNA Feb 20, 2020 14:44
[2020-02-25] MEDS ORDERED: OXC5T PO (10:37)
== END 2020-02-20 14:55 | disposition home or self-care (01) ==
LOC: SDC 10:28
PROVIDERS: ATTEND Surgery
DX: K80.10 Calculus of gallbladder with chronic cholecystitis without obstruction (principal); I10 Essential (primary) hypertension; J44.9 Chronic obstructive pulmonary disease, unspecified; F32.9 Major depressive disorder, single episode, unspecified; K21.9 Gastro-esophageal reflux disease without esophagitis; M06.9 Rheumatoid arthritis, unspecified; E11.40 Type 2 diabetes mellitus with diabetic neuropathy, unspecified; Z79.899 Other long term (current) drug therapy; Z88.5 Allergy status to narcotic agent; Z87.891 Personal history of nicotine dependence
CPT/HCPCS: 76000; 82962; 87081; 88304; 94664

== ENCOUNTER 2020-02-22 10:25 | Inpatient (IN) | payer OTHER ==
[~2020-02-22] VITALS: Ht 177.8 cm; Wt 84.0 kg
[2020-02-22] MEDS ORDERED: LACTATED RINGERS 1,000 ML IV ONE (10:40)
[2020-02-22 12:05] LABS: BASOPHILS % (AUTO) 1 % (0-10); EOSINOPHILS % (AUTO) 1 % (0-10); HEMATOCRIT 41 % (40-54); HEMOGLOBIN 13.4 G/DL (13.3-17.7); LYMPHOCYTES # (AUTO) 0.9 X 10^3 (1.0-4.0); LYMPHOCYTES % (AUTO) 21 % (12-44); MEAN CORPUSCULAR HEMOGLOBIN 29 PG (25-34); MEAN CORPUSCULAR HGB CONC 33 G/DL (32-36); MEAN CORPUSCULAR VOLUME 88 FL (80-99); MEAN PLATELET VOLUME 9.7 FL (7.4-10.4); MONOCYTES # (AUTO) 0.5 X 10^3 (0.0-1.0); MONOCYTES % (AUTO) 12 % (0-12); NEUTROPHILS # (AUTO) 2.9 X 10^3 (1.8-7.8); NEUTROPHILS % (AUTO) 66 % (42-75); PLATELET COUNT 216 10^3/uL (130-400); WHITE BLOOD COUNT 4.3 10^3/uL (4.3-11.0)
[2020-02-22 12:15] LABS: ALBUMIN 2.9 GM/DL (3.2-4.5); CHLORIDE 100 MMOL/L (98-107); POTASSIUM 4.5 MMOL/L (3.6-5.0); SODIUM 135 MMOL/L (135-145)
[2020-02-22] MEDS ORDERED: PROMETHAZINE INJ 25 MG/ML (PHENERGAN) AMP IVP ONE (12:15)
[2020-02-22 12:18] LABS: GLUCOSE 233 MG/DL (70-105); TOTAL PROTEIN 5.7 GM/DL (6.4-8.2)
[2020-02-22 12:19] LABS: CARBON DIOXIDE 23 MMOL/L (21-32)
[2020-02-22 12:20] LABS: BILIRUBIN,TOTAL 5.5 MG/DL (0.1-1.0)
[2020-02-22 12:21] LABS: ALKALINE PHOSPHATASE 452 U/L (40-136); CREATININE SERUM 0.62 MG/DL (0.60-1.30); GFR ESTIMATED > 60
[2020-02-22 12:23] LABS: ACETAMINOPHEN < 10 UG/ML (10-30); BUN/CREATININE RATIO 29
[2020-02-22 12:24] LABS: ALANINE AMINOTRANSFERASE 2204 U/L (0-55); MAGNESIUM 1.5 MG/DL (1.6-2.4)
[2020-02-22 12:25] LABS: LIPASE 12 U/L (8-78)
[2020-02-22 12:42] LABS: CLARITY,URINE CLEAR; COLOR,URINE AMBER; GLUCOSE, URINE (UA) 1+ (NEGATIVE); KETONES,URINE 3+ (NEGATIVE); LEUKOCYTE ESTERASE ,URINE NEGATIVE (NEGATIVE); NITRITE,URINE NEGATIVE (NEGATIVE); PROTEIN,URINE 2+ (NEGATIVE)
[2020-02-22 12:48] LABS: BACTERIA,URINE TRACE /HPF; BILIRUBIN,URINE 3+ (NEGATIVE); WBC,URINE 0-2 /HPF
[2020-02-22 12:54] LABS: AMPHETAMINE SCREEN, URINE NEGATIVE (NEGATIVE); BARBITURATE SCREEN URINE NEGATIVE (NEGATIVE); BENZODIAZEPINES SCREEN URINE NEGATIVE (NEGATIVE); CANNABINOID SCREEN, URINE POSITIVE (NEGATIVE); COCAINE SCREEN URINE NEGATIVE (NEGATIVE); METHADONE STAT NEGATIVE (NEGATIVE); METHAMPHETAMINE SCREEN URINE S NEGATIVE (NEGATIVE); OPIATE SCREEN URINE POSITIVE (NEGATIVE); OXYCODONE STAT NEGATIVE (NEGATIVE); PROPOXYPHENE STAT NEGATIVE (NEGATIVE); TRICYCLIC ANTIDEPRESSANTS SCRE NEGATIVE (NEGATIVE)
--- NOTE | 2020-02-22 13:09 | ED General ---
General Stated Complaint: NAUSEA/VOMITING Source of Information: Patient, Old Records Exam Limitations: No Limitations History of Present Illness Date Seen by Provider: Feb 22, 2020 Time Seen by Provider: 10:26 Initial Comments This 34-year-old young man with diabetes presents to the emergency room via EMS for unmanageable vomiting on postop day number 2 from cholecystectomy. Patient had been seen in this ER about 2 weeks ago and was thought to have cannabis hyperemesis syndrome. He later was seen at [facility] where he was found to have gallstones and hepatitis A. He underwent cholecystectomy on February 19. He was feeling okay that day and was able to eat and drink. However, he has had rapid decline over the last 48 hours. He has not been taking his insulin as prescribed because he has not been able to keep down food or fluids. He took no insulin yesterday. He took 1.5 units of short-acting insulin N 30 units of long-acting insulin this morning. He has been taking his pain medication 2 tablets at a time but his symptoms have not improved. He received Zofran 4 mg by EMS. Allergies and Home Medications Allergies Coded Allergies: tramadol (Verified Adverse Reaction, Mild, N/V, 12/21/14) Home Medications Famotidine 20 Mg Tablet, 20 MG PO BID Prescribed by: GRIFFIN MURO on 02/07/20 1548 Gabapentin 800 Mg Tablet, 800 MG PO QID, (Reported) Hydrocodone/Acetaminophen 1 Each Tablet, 1 TAB PO Q6H Prescribed by: LUPILLO ROCHA on 02/20/20 1239 Insulin Aspart 300 Units/3 Ml Solution, 8 UNITS SQ AC, (Reported) Insulin Detemir 100 Unit/1 Ml Insuln.pen, 45 UNIT SQ HS, (Reported) Ondansetron 4 Mg Tab.rapdis, 4 MG SL Q4H PRN for NAUSEA/VOMITING Prescribed by: GRIFFIN MURO on 02/07/20 1548 Patient Home Medication List Home Medication List Reviewed: Yes Review of Systems Review of Systems Constitutional: see HPI, weakness EENTM: other (dry mouth) Respiratory: no symptoms reported Cardiovascular: no symptoms reported Gastrointestinal: see HPI Genitourinary: no symptoms reported Musculoskeletal: no symptoms reported Skin: no symptoms reported Psychiatric/Neurological: No Symptoms Reported Hematologic/Lymphatic: No Symptoms Reported Past Hifgqyl-Vduroy-Uopmoz Hx Past Med/Social Hx: Reviewed Nursing Past Med/Soc Hx Patient Social History Recreational Drug Use: Yes Drug of Choice: POT Type Used: Smokeless Tobacco Former Smoker, Quit: Aug 14, 2017 2nd Hand Smoke Exposure: No Recent Hopitalizations: No Immunizations Up To Date Tetanus Booster (TDap): Unknown Date of Pneumonia Vaccine: Aug 27, 2011 Date of Influenza Vaccine: May 21, 2014 Seasonal Allergies Seasonal Allergies: No Past Medical History Surgeries: No Respiratory: Yes (copd dx by patient) COPD Currently Using CPAP: No Currently Using BIPAP: No Cardiac: Yes Hypertension Neurological: Yes Neuropathy Reproductive Disorders: No Sexually Transmitted Disease: No HIV/AIDS: No Genitourinary: No Kidney Infection Gastrointestinal: Yes (ELEVATED LIVER ENZYMES) Gall Bladder Disease Musculoskeletal: Yes Arthritis, Scoliosis, Chronic Back Pain Endocrine: Yes (EXTREME NON-COMPLIANCE, MULTIPLE EPISODES OF DKA) Diabetes, Insulin dep HEENT: No Hearing Impairment: Denies Cancer: No Psychosocial: Yes (POLYSUBSTANCE ABUSE) Depression Integumentary: No Blood Disorders: No Adverse Reaction/Blood Tranf: No Family Medical History Alcoholism 19 FATHER G8 BROTHER Congenital heart disease 19 FATHER Family history: Cardiovascular disease 19 FATHER, Onset:40's - 50 Family history: Diabetes mellitus 19 MOTHER Family history: Hypertension 19 FATHER Heart disease 19 FATHER History of - respiratory disease 19 FATHER History of drug abuse 19 MOTHER Hypercholesterolemia 19 FATHER Myocardial infarction 19 FATHER Seizure disorder 19 FATHER No Family History of: Abdominal aortic aneurysm Burton's disease Cancer Congestive heart failure Cystic fibrosis Dementia Dysphagia Family history: Allergy Family history: Alzheimer's disease Family history: Arthritis Family history: Asthma Family history: Breast disease Family history: Coronary thrombosis Family history: Gastrointestinal disease Family history: Glaucoma Family history: Osteoporosis Family history: Thyroid disorder Headache Hearing loss Hereditary disease History of - anemia History of - disorder Human immunodeficiency virus (HIV) seropositivity Infertile Kidney disease Malignant neoplasm of lung Parkinson's disease Prostate cancer Psychotic disorder Stroke Tuberculosis Visual impairment No Pertinent Family Hx, Heart Disease, Diabetes, Hypertension, Lung Disease, Psychiatric Problems Physical Exam Vital Signs Vital Signs - First Documented 02/22/20 10:28 Temp 36.8 Pulse 79 Resp 20 B/P (MAP) 130/69 (89) Pulse Ox 99 O2 Delivery Room Air Capillary Refill : Height, Weight, BMI Height: 5'10.00" Weight: 240lbs. 0oz. [id number]; 28.75 BMI Method:Stated General Appearance: WD/WN, Mild Distress HEENT: PERRL/EOMI, Normal ENT Inspection, Other (mucous membranes dry. scleral icterus noted) Neck: Normal Inspection Respiratory: Lungs Clear, Normal Breath Sounds, No Accessory Muscle Use, No Respiratory Distress Cardiovascular: Regular Rate, Rhythm, No Edema, No Murmur Gastrointestinal: Normal Bowel Sounds, Soft, Tenderness (appropriately tender for postoperative day number 2) Extremity: Normal Inspection, No Pedal Edema Neurologic/Psychiatric: Alert, Oriented x3, No Motor/Sensory Deficits, Normal Mood/Affect, manager track II-XII Norm as Tested Skin: Normal Color, Warm/Dry Progress/Results/Core Measures Suspected Sepsis SIRS Temperature: Pulse: Respiratory Rate: Laboratory Tests 02/22/20 11:57: White Blood Count 4.3 Blood Pressure / Mean: Laboratory Tests 02/22/20 11:57: Creatinine 0.62, Platelet Count 216, Total Bilirubin 5.5H Results/Orders Lab Results Laboratory Tests Test 02/22/20 11:57 02/22/20 12:30 02/22/20 16:57 Range/Units White Blood Count 4.3 4.3-11.0 10^3/uL Red Blood Count 4.64 4.35-5.85 10^6/uL Hemoglobin 13.4 13.3-17.7 G/DL Hematocrit 41 40-54 % Mean Corpuscular Volume 88 80-99 FL Mean Corpuscular Hemoglobin 29 25-34 PG Mean Corpuscular Hemoglobin Concent 33 32-36 G/DL Red Cell Distribution Width 13.5 10.0-14.5 % Platelet Count 216 130-400 10^3/uL Mean Platelet Volume 9.7 7.4-10.4 FL Neutrophils (%) (Auto) 66 42-75 % Lymphocytes (%) (Auto) 21 12-44 % Monocytes (%) (Auto) 12 0-12 % Eosinophils (%) (Auto) 1 0-10 % Basophils (%) (Auto) 1 0-10 % Neutrophils # (Auto) 2.9 1.8-7.8 X 10^3 Lymphocytes # (Auto) 0.9 L 1.0-4.0 X 10^3 Monocytes # (Auto) 0.5 0.0-1.0 X 10^3 Eosinophils # (Auto) 0.0 0.0-0.3 10^3/uL Basophils # (Auto) 0.0 0.0-0.1 10^3/uL Sodium Level 135 135-145 MMOL/L Potassium Level 4.5 3.6-5.0 MMOL/L Chloride Level 100 98-107 MMOL/L Carbon Dioxide Level 23 21-32 MMOL/L Anion Gap 12 5-14 MMOL/L Blood Urea Nitrogen 18 7-18 MG/DL Creatinine 0.62 0.60-1.30 MG/DL Estimat Glomerular Filtration Rate > 60 BUN/Creatinine Ratio 29 Glucose Level 233 H 70-105 MG/DL Calcium Level 8.0 L 8.5-10.1 MG/DL Corrected Calcium 8.9 8.5-10.1 MG/DL Magnesium Level 1.5 L 1.6-2.4 MG/DL Total Bilirubin 5.5 H 0.1-1.0 MG/DL Aspartate Amino Transf (AST/SGOT) 1795 H 5-34 U/L Alanine Aminotransferase (ALT/SGPT) 2204 H 0-55 U/L Alkaline Phosphatase 452 H 40-136 U/L C-Reactive Protein High Sensitivity 2.45 H 0.00-0.50 MG/DL Total Protein 5.7 L 6.4-8.2 GM/DL Albumin 2.9 L 3.2-4.5 GM/DL Lipase 12 8-78 U/L Acetaminophen Level < 10 L 10-30 UG/ML Urine Color DANIELA H Urine Clarity CLEAR Urine pH 7.0 5-9 Urine Specific [place] 1.025 H 1.016-1.022 Urine Protein 2+ H NEGATIVE Urine Glucose (UA) 1+ H NEGATIVE Urine Ketones 3+ H NEGATIVE Urine Nitrite NEGATIVE NEGATIVE Urine Bilirubin 3+ H NEGATIVE Urine Urobilinogen 4.0 < = 1.0 MG/DL Urine Leukocyte Esterase NEGATIVE NEGATIVE Urine RBC (Auto) NEGATIVE NEGATIVE Urine RBC NONE /HPF Urine WBC 0-2 /HPF Urine Crystals NONE /LPF Urine Bacteria TRACE /HPF Urine Casts NONE /LPF Urine Mucus MODERATE H /LPF Urine Culture Indicated NO Urine Opiates Screen POSITIVE H NEGATIVE Urine Oxycodone Screen NEGATIVE NEGATIVE Urine Methadone Screen NEGATIVE NEGATIVE Urine Propoxyphene Screen NEGATIVE NEGATIVE Urine Barbiturates Screen NEGATIVE NEGATIVE Ur Tricyclic Antidepressants Screen NEGATIVE NEGATIVE Urine Phencyclidine Screen NEGATIVE NEGATIVE Urine Amphetamines Screen NEGATIVE NEGATIVE Urine Methamphetamines Screen NEGATIVE NEGATIVE Urine Benzodiazepines Screen NEGATIVE NEGATIVE Urine Cocaine Screen NEGATIVE NEGATIVE Urine Cannabinoids Screen POSITIVE H NEGATIVE Glucometer 213 H 70-110 MG/DL My Orders Orders - GRIFFIN GUTIERREZ MD Acetaminophen (02/22/20 10:40) Cbc With Automated Diff (02/22/20 10:40) Comprehensive Metabolic Panel (02/22/20 10:40) Hs C Reactive Protein (02/22/20 10:40) Drug Screen Stat (Urine) (02/22/20 10:40) Lipase (02/22/20 10:40) Magnesium (02/22/20 10:40) Ua Culture If Indicated (02/22/20 10:40) Ed Iv/Invasive Line Start (02/22/20 10:40) Lactated Ringers (Lr 1000 Ml Iv Solution (02/22/20 10:40) Medications Given in ED Current Medications Medications Dose Ordered Sig/Fer Route Start Time Stop Time Status Last Admin Dose Admin Lactated Ringer's 1,000 ml @ 0 mls/hr Q0M ONCE IV 02/22/20 10:40 02/22/20 10:42 DC 02/22/20 11:31 1,000 MLS/HR Promethazine HCl 25 mg ONCE ONCE IVP 02/22/20 12:15 02/22/20 12:16 DC 02/22/20 12:21 25 MG Vital Signs/I&O 02/22/20 02/22/20 02/22/20 02/22/20 10:28 14:23 14:35 15:04 Temp 36.8 36.8 36.0 Pulse 79 75 75 Resp 20 20 20 B/P (MAP) 130/69 (89) 117/70 (89) 106/66 Pulse Ox 99 99 98 O2 Delivery Room Air Room Air Room Air Room Air 02/22/20 02/22/20 16:00 19:10 Temp 36.2 36.4 Pulse 85 71 Resp 20 18 B/P (MAP) 123/69 (87) 109/55 (73) Pulse Ox 98 98 O2 Delivery Room Air Room Air Capillary Refill : Progress Note : Progress Note Patient was hydrated with IV fluids and residual nausea was treated with Phenergan. Patient was found to have markedly elevated transaminases and bilirubin. It is unclear if the etiology is more related to acute hepatitis A or if it is related to complications from cholelithiasis and cholecystitis such as choledocholithiasis. Dr. Winter was consulted and requested hepatobiliary scan in the morning. Until then we will continue to hydrate and treat symptoms. Dr. NICOLAS presented to the ER to evaluate the patient along with Dr. Winter. Departure Communication (Admissions) Time/Spoke to Admitting Phy: 12:50 Dr. Nicolas Time/Spoke to Consulting Phy: 12:40 Dr. Winter Impression Primary Impression: Acute hepatitis A Additional Impressions: Nausea and vomiting Qualified Codes: R11.2 - Nausea with vomiting, unspecified Hyperbilirubinemia Disposition: ADMITTED INPATIENT Condition: Improved Admissions Decision to Admit Reason: Admit from ER (General) Decision to Admit/Date: Feb 22, 2020 Time/Decision to Admit Time: 12:30 Departure-Patient Inst. Referrals: [facility] (PCP/Family) Primary Care Physician Copy Copies To 1: WESTON DOTY JOSHUA T MD Feb 22, 2020 13:09
--- NOTE | 2020-02-22 13:45 | NUR ---
Spoke with pt's father regarding plan of care for pt.
--- NOTE | 2020-02-22 13:48 | Consultation - Surgery ---
ZACHERY BARRERA MED STUDENT 02/22/20 1348: History of Present Illness History of Present Illness Patient Consulted On(bárbara/time) 02/22/20 13:00 Date Seen by Provider: Feb 22, 2020 Time Seen by Provider: 13:20 Reason for Visit: nausea vomiting History of Present Illness Alvaro is a 34 y.o. M who presents with nausea and dry heaves. The patient had a cholecystectomy on 01/20/[address] Rocha who presents with complaint of nausea. The patient states he felt well but bloated throughout the day following his surgery, but yesterday suddenly became very nauseous with dry heaves and has been dryheaving since. He states these symptoms are the same as he felt prior to having his gallbladder removed. The patient's total billirubin was 5.5, AST 1795, ALT 2204, Alk phos 452, CRP 2.45 in the ER today. Allergies and Home Medications Allergies Coded Allergies: tramadol (Verified Adverse Reaction, Mild, N/V, 12/21/14) Home Medications Famotidine 20 Mg Tablet, 20 MG PO BID Prescribed by: GRIFFIN MURO on 02/07/20 1548 Gabapentin 800 Mg Tablet, 800 MG PO QID, (Reported) Hydrocodone/Acetaminophen 1 Each Tablet, 1 TAB PO Q6H Prescribed by: LUPILLO ROCHA on 02/20/20 1239 Insulin Aspart 300 Units/3 Ml Solution, 8 UNITS SQ AC, (Reported) Insulin Detemir 100 Unit/1 Ml Insuln.pen, 45 UNIT SQ HS, (Reported) Ondansetron 4 Mg Tab.rapdis, 4 MG SL Q4H PRN for NAUSEA/VOMITING Prescribed by: GRIFFIN MURO on 02/07/20 1548 Past Cxxkide-Orenne-Knmfjn Hx Patient Social History Alcohol Use: Past History Recreational Drug Use: Yes (ETOH) Drug of Choice: POT Smoking Status: Former Smoker Former Smoker, Quit: Aug 14, 2017 Type Used: Smokeless Tobacco 2nd Hand Smoke Exposure: No Recent Foreign Travel: No Contact w/Someone Who Travel: No Recent Infectious Disease Expo: No Recent Hopitalizations: Yes (silvia) Immunizations Up To Date Tetanus Booster (TDap): Unknown Date of Pneumonia Vaccine: Aug 27, 2011 Date of Influenza Vaccine: May 21, 2014 Seasonal Allergies Seasonal Allergies: No Surgeries History of Surgeries: No Surgeries: Gallbladder Respiratory History of Respiratory Disorde: Yes (copd dx by patient) Respiratory Disorders: COPD Cardiovascular History of Cardiac Disorders: Yes Cardiac Disorders: Hypertension Neurological History of Neurological Disord: Yes Neurological Disorders: Neuropathy Reproductive System Hx Reproductive Disorders: No Sexually Transmitted Disease: No HIV/AIDS: No Genitourinary History of Genitourinary Disor: No Genitourinary Disorders: Kidney Infection Gastrointestinal History of Gastrointestinal Di: Yes (ELEVATED LIVER ENZYMES) Gastrointestinal Disorders: Gall Bladder Disease Musculoskeletal History of Musculoskeletal Dis: Yes Musculoskeletal Disorders: Arthritis, Scoliosis, Chronic Back Pain Endocrine History of Endocrine Disorders: Yes (EXTREME NON-COMPLIANCE, MULTIPLE EPISODES OF DKA) Endocrine Disorders: Diabetes, Insulin dep HEENT History of HEENT Disorders: No Hearing Impairment: Denies Cancer History of Cancer: No Psychosocial History of Psychiatric Problem: Yes (POLYSUBSTANCE ABUSE) Behavioral Health Disorders: Depression Integumentary History of Skin or Integumenta: No Blood Transfusions History of Blood Disorders: No Adverse Reaction to a Blood Tr: No Family Medical History Significant Family History: No Pertinent Family Hx, Heart Disease, Diabetes, Hypertension, Lung Disease, Psychiatric Problems Family Medial History: Alcoholism 19 FATHER G8 BROTHER Congenital heart disease 19 FATHER Family history: Cardiovascular disease 19 FATHER, Onset:40's - 50 Family history: Diabetes mellitus 19 MOTHER Family history: Hypertension 19 FATHER Heart disease 19 FATHER History of - respiratory disease 19 FATHER History of drug abuse 19 MOTHER Hypercholesterolemia 19 FATHER Myocardial infarction 19 FATHER Seizure disorder 19 FATHER No Family History of: Abdominal aortic aneurysm Markos's disease Cancer Congestive heart failure Cystic fibrosis Dementia Dysphagia Family history: Allergy Family history: Alzheimer's disease Family history: Arthritis Family history: Asthma Family history: Breast disease Family history: Coronary thrombosis Family history: Gastrointestinal disease Family history: Glaucoma Family history: Osteoporosis Family history: Thyroid disorder Headache Hearing loss Hereditary disease History of - anemia History of - disorder Human immunodeficiency virus (HIV) seropositivity Infertile Kidney disease Malignant neoplasm of lung Parkinson's disease Prostate cancer Psychotic disorder Stroke Tuberculosis Visual impairment Review of Systems-General Constitutional: No chills, No fever EENTM: No hearing loss, No ear pain Respiratory: No cough, No short of breath Cardiovascular: No chest pain, No edema Gastrointestinal: No diarrhea; nausea, vomiting Genitourinary: No frequency, No hematuria Musculoskeletal: No joint pain, No neck pain Skin: No change in hair/nails, No rash Psychiatric/Neurological: Denies Anxiety, Denies Depressed All Other Systems Reviewed Negative Unless Noted: Yes Physical Exam-General Problems Physical Exam Vital Signs Vital Signs - First Documented 02/22/20 10:28 Temp 36.8 Pulse 79 Resp 20 B/P (MAP) 130/69 (89) Pulse Ox 99 O2 Delivery Room Air Capillary Refill : Less Than 3 Seconds General Appearance: WD/WN, mild distress HEENT: PERRL/EOMI, scleral icterus (R), scleral icterus (L) Neck: non-tender, full range of motion Respiratory: chest non-tender, no respiratory distress, no accessory muscle use Cardiovascular: no edema, no JVD Gastrointestinal: soft, other (laparoscopic incision sites with surrounding ecchymosis but no evidence of cellulitis ) Back: normal inspection, no vertebral tenderness Extremities: normal range of motion, non-tender Neurologic/Psychiatric: alert, normal mood/affect, oriented x 3 Skin: normal color, diaphoresis (especially the face) Lymphatic: no adenopathy Data Review Labs Laboratory Tests 02/22/20 11:57: White Blood Count 4.3, Red Blood Count 4.64, Hemoglobin 13.4, Hematocrit 41, Mean Corpuscular Volume 88, Mean Corpuscular Hemoglobin 29, Mean Corpuscular Hemoglobin Concent 33, Red Cell Distribution Width 13.5, Platelet Count 216, Mean Platelet Volume 9.7, Neutrophils (%) (Auto) 66, Lymphocytes (%) (Auto) 21, Monocytes (%) (Auto) 12, Eosinophils (%) (Auto) 1, Basophils (%) (Auto) 1, Neutrophils # (Auto) 2.9, Lymphocytes # (Auto) 0.9L, Monocytes # (Auto) 0.5, Eosinophils # (Auto) 0.0, Basophils # (Auto) 0.0, Sodium Level 135, Potassium Level 4.5, Chloride Level 100, Carbon Dioxide Level 23, Anion Gap 12, Blood Urea Nitrogen 18, Creatinine 0.62, Estimat Glomerular Filtration Rate > 60, BUN/Creatinine Ratio 29, Glucose Level 233H, Calcium Level 8.0L, Corrected Calcium 8.9, Magnesium Level 1.5L, Total Bilirubin 5.5H, Aspartate Amino Transf (AST/SGOT) 1795H, Alanine Aminotransferase (ALT/SGPT) 2204H, Alkaline Phosphatas e 452H, C-Reactive Protein High Sensitivity 2.45H, Total Protein 5.7L, Albumin 2.9L, Lipase 12, Acetaminophen Level < 10L 02/22/20 12:30: Urine Color AMBERH, Urine Clarity CLEAR, Urine pH 7.0, Urine Specific Bruce 1.025H, Urine Protein 2+H, Urine Glucose (UA) 1+H, Urine Ketones 3+H, Urine Nitrite NEGATIVE, Urine Bilirubin 3+H, Urine Urobilinogen 4.0, Urine Leukocyte Esterase NEGATIVE, Urine RBC (Auto) NEGATIVE, Urine RBC NONE, Urine WBC 0-2, Urine Crystals NONE, Urine Bacteria TRACE, Urine Casts NONE, Urine Mucus MODERATEH, Urine Culture Indicated NO, Urine Opiates Screen POSITIVEH, Urine Oxycodone Screen NEGATIVE, Urine Methadone Screen NEGATIVE, Urine Propoxyphene Screen NEGATIVE, Urine Barbiturates Screen NEGATIVE, Ur Tricyclic Antidepressants Screen NEGATIVE, Urine Phencyclidine Screen NEGATIVE, Urine Amphetamines Screen NEGATIVE, Urine Methamphetamines Screen NEGATIVE, Urine Benzodiazepines Screen NEGATIVE, Urine Cocaine Screen NEGATIVE, Urine Cannabinoids Screen POSITIVEH Assessment/Plan Assessment/Plan Admission Diagonsis nausea vomiting 2 days postop s/p cholecystectomy history Hepatitis A Assessment/Plan s/p cholecystectomy nausea and dry heaves history hepatitis A IVF monitor labs and vitals, recheck labs tomorrow morning likely ERCP tomorrow handoff to Dr. Rocha tomorrow DOMONIQUE SHELL DO 02/22/20 2713: History of Present Illness History of Present Illness History of Present Illness Consult requested by Dr. Nicolas for hyperbilirubinemia elevated transaminases s/p lap silvia. Patient is a 34 year old male who had lap silvia c ioc 01/20/20. Had normal IOC at that time. No filling defects and contrast made its way into the duodenum. Las 2 days began having nausea and dry heaves. Unable to get these symptoms to stop. Has became jaundiced and went to er. Found to have elevated ast,alt,alk phos, and elevated bili. Patient states abdominal pain has improved and what he would expect postoperatively. State he was recently diagnosed with Hepatitis A at outside hospital. Allergies and Home Medications Allergies Coded Allergies: tramadol (Verified Adverse Reaction, Mild, N/V, 12/21/14) Home Medications Famotidine 20 Mg Tablet, 20 MG PO BID Prescribed by: GRIFFIN MURO on 02/07/20 1548 Gabapentin 800 Mg Tablet, 800 MG PO QID, (Reported) Hydrocodone/Acetaminophen 1 Each Tablet, 1 TAB PO Q6H Prescribed by: LUPILLO ROCHA on 02/20/20 1239 Insulin Aspart 300 Units/3 Ml Solution, 8 UNITS SQ AC, (Reported) Insulin Detemir 100 Unit/1 Ml Insuln.pen, 45 UNIT SQ HS, (Reported) Ondansetron 4 Mg Tab.rapdis, 4 MG SL Q4H PRN for NAUSEA/VOMITING Prescribed by: GRIFFIN MURO on 02/07/20 1548 Patient Home Medication List Home Medication List Reviewed: Yes Past Lgkcbat-Awryso-Hcopgm Hx Surgeries History of Surgeries: Yes Surgeries: Gallbladder Gastrointestinal Gastrointestinal Disorders: Liver Disease/Jaundice Endocrine History of Endocrine Disorders: Yes (dm) Family Medical History Significant Family History: No Pertinent Family Hx Family Medial History: Alcoholism 19 FATHER G8 BROTHER Congenital heart disease 19 FATHER Family history: Cardiovascular disease 19 FATHER, Onset:40's - 50 Family history: Diabetes mellitus 19 MOTHER Family history: Hypertension 19 FATHER Heart disease 19 FATHER History of - respiratory disease 19 FATHER History of drug abuse 19 MOTHER Hypercholesterolemia 19 FATHER Myocardial infarction 19 FATHER Seizure disorder 19 FATHER No Family History of: Abdominal aortic aneurysm Searcy's disease Cancer Congestive heart failure Cystic fibrosis Dementia Dysphagia Family history: Allergy Family history: Alzheimer's disease Family history: Arthritis Family history: Asthma Family history: Breast disease Family history: Coronary thrombosis Family history: Gastrointestinal disease Family history: Glaucoma Family history: Osteoporosis Family history: Thyroid disorder Headache Hearing loss Hereditary disease History of - anemia History of - disorder Human immunodeficiency virus (HIV) seropositivity Infertile Kidney disease Malignant neoplasm of lung Parkinson's disease Prostate cancer Psychotic disorder Stroke Tuberculosis Visual impairment Review of Systems-General Constitutional: No chills, No fever EENTM: No hearing loss, No ear pain Respiratory: No cough, No short of breath Cardiovascular: No chest pain, No edema Gastrointestinal: No diarrhea; nausea, vomiting Genitourinary: No frequency, No hematuria Musculoskeletal: No joint pain, No neck pain Skin: No change in hair/nails Psychiatric/Neurological: Denies Anxiety, Denies Depressed All Other Systems Reviewed Negative Unless Noted: Yes (Negative excepted noted.) Physical Exam-General Problems Physical Exam General Appearance: WD/WN, no apparent distress HEENT: PERRL/EOMI, scleral icterus (R), scleral icterus (L) Neck: non-tender, full range of motion Respiratory: chest non-tender, no respiratory distress, no accessory muscle use Cardiovascular: regular rate, rhythm, no edema, no JVD Gastrointestinal: soft, other (laparoscopic incision sites with surrounding ecchymosis but no evidence of cellulitis or infection, minimal incisional tenderness) Rectal: deferred Back: normal inspection, no vertebral tenderness Extremities: normal range of motion, non-tender Neurologic/Psychiatric: alert, normal mood/affect, oriented x 3 Skin: No diaphoresis; jaundice Lymphatic: no adenopathy Assessment/Plan Assessment/Plan Assessment/Plan hepatitis A elevated bili and transminases s/p cholecystectomy c ioc nausea and dry heaves repeat labs in am HIDA tomorrow to check for duct patency IV fluids ABX discussed with Dr. Nicolas Supervisory-Addendum Brief Verification & Attestation Participated in pt care: history, MDM, physical Personally performed: exam, history, MDM, supervision of care Care discussed with: Medical Student Procedures: n/a Results interpretation: Verified all documentation Verification and Attestation of Medical Student E/M Service A medical student performed and documented this service in my presence. I reviewed and verified all information documented by the medical student and made modifications to such information, when appropriate. I personally performed the physical exam and medical decision making. Domonique Shell, Feb 22, 2020,22:16 ZACHERY BARRERA MED STUDENT Feb 22, 2020 13:48 DOMONIQUE SHELL DO Feb 22, 2020 21:47
[2020-02-22 14:35] VITALS: BP 106/66
[2020-02-22] MEDS ORDERED: cefTRIAXone FOR IV USE 1,000 MG in WATER (STERILE) FOR INJECTION 10 ML IV ONE (14:45)
--- NOTE | 2020-02-22 14:56 | History & Physical-Hospitalist ---
History of Present Illness HPI/Chief Complaint 34 yo wm with hx iddm presents with 2 day hx N ,V no diarrhea. Had Kasey with normal cholangiogram 2 days ago . felt fine after. Told he had Hep A 1 week ago at [place]. 02-07-20 had a normal bili here. Source: patient Exam Limitations: no limitations Date Seen 02/22/20 Time Seen by a Provider: 12:30 Attending Physician Sonja Nicolas MD [facility] Referring Physician Date of Admission Feb 22, 2020 at 12:50 Home Medications & Allergies Home Medications Reviewed patient Home Medication Reconciliation performed by pharmacy medication reconciliations assembly technician and/or nursing. Patients Allergies have been reviewed. Allergies Allergies Coded Allergies tramadol (Verified Adverse Reaction, Mild, N/V, 12/21/14) Past Cgrjxqc-Xpjbrp-Ahhsyc Hx Past Med/Social Hx: Reviewed Nursing Past Med/Soc Hx Patient Social History Marrital Status: single Employed/Student: unemployed Alcohol Use: Past History Recreational Drug Use: Yes (ETOH) Drug of Choice: POT Smoking Status: Former Smoker Former Smoker, Quit: Aug 14, 2017 Type Used: Smokeless Tobacco 2nd Hand Smoke Exposure: No Recent Foreign Travel: No Contact w/other who traveled: No Recent Hopitalizations: Yes (kasey) Recent Infectious Disease Expo: No Immunizations Up To Date Tetanus Booster (TDap): Unknown Date of Pneumonia Vaccine: Aug 27, 2011 Date of Influenza Vaccine: May 21, 2014 Seasonal Allergies Seasonal Allergies: No Past Medical History Surgeries: Gallbladder Currently Using CPAP: No Currently Using BIPAP: No Cardiac: Hypertension Neurological: Neuropathy Reproductive: No Sexually Transmitted Disease: No HIV/AIDS: No Genitourinary: Kidney Infection Gastrointestinal: Hepatitis, Gall Bladder Disease Musculoskeletal: Arthritis, Scoliosis, Chronic Back Pain Endocrine: Diabetes, Insulin dep Hearing Impairment: Denies Psychosocial: Depression History of Blood Disorders: No Adverse Reaction to Blood Tony: No Family History Alcoholism 19 FATHER G8 BROTHER Congenital heart disease 19 FATHER Family history: Cardiovascular disease 19 FATHER, Onset:40's - 50 Family history: Diabetes mellitus 19 MOTHER Family history: Hypertension 19 FATHER Heart disease 19 FATHER History of - respiratory disease 19 FATHER History of drug abuse 19 MOTHER Hypercholesterolemia 19 FATHER Myocardial infarction 19 FATHER Seizure disorder 19 FATHER No Family History of: Abdominal aortic aneurysm Markos's disease Cancer Congestive heart failure Cystic fibrosis Dementia Dysphagia Family history: Allergy Family history: Alzheimer's disease Family history: Arthritis Family history: Asthma Family history: Breast disease Family history: Coronary thrombosis Family history: Gastrointestinal disease Family history: Glaucoma Family history: Osteoporosis Family history: Thyroid disorder Headache Hearing loss Hereditary disease History of - anemia History of - disorder Human immunodeficiency virus (HIV) seropositivity Infertile Kidney disease Malignant neoplasm of lung Parkinson's disease Prostate cancer Psychotic disorder Stroke Tuberculosis Visual impairment No Pertinent Family Hx, Heart Disease, Diabetes, Hypertension, Lung Disease, Psychiatric Problems Review of Systems Constitutional: see HPI EENTM: no symptoms reported Respiratory: no symptoms reported Cardiovascular: no symptoms reported Gastrointestinal: loss of appetite, nausea, vomiting (retching) Musculoskeletal: no symptoms reported Skin: no symptoms reported Psychiatric/Neurological: No Symptoms Reported Physical Exam Physical Exam Vital Signs Vital Signs - First Documented 02/22/20 10:28 Temp 36.8 Pulse 79 Resp 20 B/P (MAP) 130/69 (89) Pulse Ox 99 O2 Delivery Room Air Capillary Refill : Less Than 3 Seconds Height, Weight, BMI Height: 5'10.00" Weight: 240lbs. 0oz. [id number]; 26.57 BMI Method:Stated General Appearance: No Apparent Distress, WD/WN HEENT: Scleral Icterus (L), Scleral Icterus (R) Neck: Supple Respiratory: Lungs Clear, Normal Breath Sounds, No Accessory Muscle Use, No Respiratory Distress Cardiovascular: Regular Rate, Rhythm, No Gallop, No JVD, No Murmur Gastrointestinal: Normal Bowel Sounds, Soft, Tenderness (post-op) Extremity: No Calf Tenderness Neurologic/Psychiatric: Alert, Oriented x3, No Motor/Sensory Deficits, Normal Mood/Affect Skin: Normal Color, Warm/Dry Lymphatic: No Adenopathy Results Results/Procedures Labs Laboratory Tests 02/22/20 11:57 Patient resulted labs reviewed. Assessment/Plan Admission Diagnosis elevated LFT's - possible CBD obstruction ? hep A- by history? IDDM with inability to eat with ketosis but normal HCO3- at risk for DKA Plan; admit, surgical consult, ABX's in an abundance of caution since ascending cholangitis is a risk if obstructed. HIDDA scan -possible ERCP if abnormal- follow BS closely to avoid DKA. Admission Status: Observation Copy Copies To 1: [facility]/SONJA JOHNSON MD Feb 22, 2020 14:56
--- NOTE | 2020-02-22 15:00 | NUR ---
LYDIA CARUSO JR. admitted to room 424-1, with an admitting diagnosis of ACUTE HEP A, N/V, HYPERBILIRUBINEMIA, on 02/22/20 from ED via W/C,accompanied ED STAFF. LYDIA CARUSO JR introduced to surroundings, call light, bed controls, phone, TV, temperature control, lights, meal times, smoking policy, visitor policy, side rail policy, bathrooms and showers. Patient Rights given to patient in the handbook. LYDIA CARUSO JR verbalizes understanding that [facility] is not responsible for the loss or damage to any personal effects or valuables that are kept in the patients possession during their hospitalization.
[2020-02-22] MEDS: fentaNYL INJECTION 100 MCG/2 ML AMP IVP PRN ×2 (15:54→20:27)
[2020-02-22 16:00] VITALS: BP 123/69
[2020-02-22] MEDS: LACTATED RINGERS 1,000 ML IV SCH (18:07)
[2020-02-22] MEDS: GABAPENTIN 400 MG (NEURONTIN) CAP PO SCH ×2 (18:07→20:19)
[2020-02-22] MEDS: inSUlin ASPART (NovoLOG) 1 UNIT/0.01 ML (CHARGE PER UNIT) SC SCH ×2 (18:08→21:01)
[2020-02-22] MEDS: ONDANSETRON 4 MG/2 ML (SDV) Z0FRAN IVP PRN (18:12)
[2020-02-22 19:10] VITALS: BP 109/55
[2020-02-22] MEDS ORDERED: FAMOTIDINE 20 MG (PEPCID) TABLET PO SCH (21:00)
[2020-02-22] MEDS: FAMOTIDINE 20MG/2ML IV (PEPCID) IVP SCH (21:01)
[2020-02-22] MEDS: metroNIDAZOLE 500MG/100ML IVPB 250 MG in SYRINGE-IVPB 0 SYRINGE IV SCH (23:02)
[2020-02-23 01:03] VITALS: BP 112/67
[2020-02-23] MEDS: LACTATED RINGERS 1,000 ML IV SCH ×3 (02:45→15:12)
[2020-02-23] MEDS: fentaNYL INJECTION 100 MCG/2 ML AMP IVP PRN ×5 (04:12→18:21)
[2020-02-23 04:15] VITALS: BP 110/57
[2020-02-23 05:22] LABS: BASOPHILS % (AUTO) 1 % (0-10); EOSINOPHILS # (AUTO) 0.1 10^3/uL (0.0-0.3); EOSINOPHILS % (AUTO) 4 % (0-10); HEMATOCRIT 39 % (40-54); HEMOGLOBIN 12.7 G/DL (13.3-17.7); LYMPHOCYTES # (AUTO) 1.1 X 10^3 (1.0-4.0); LYMPHOCYTES % (AUTO) 36 % (12-44); MEAN CORPUSCULAR HEMOGLOBIN 29 PG (25-34); MEAN CORPUSCULAR HGB CONC 33 G/DL (32-36); MEAN CORPUSCULAR VOLUME 88 FL (80-99); MEAN PLATELET VOLUME 9.5 FL (7.4-10.4); MONOCYTES # (AUTO) 0.4 X 10^3 (0.0-1.0); MONOCYTES % (AUTO) 13 % (0-12); NEUTROPHILS # (AUTO) 1.4 X 10^3 (1.8-7.8); NEUTROPHILS % (AUTO) 46 % (42-75); PLATELET COUNT 202 10^3/uL (130-400); WHITE BLOOD COUNT 3.1 10^3/uL (4.3-11.0)
[2020-02-23 05:29] LABS: ALBUMIN 2.5 GM/DL (3.2-4.5)
[2020-02-23 05:30] LABS: CHLORIDE 104 MMOL/L (98-107); POTASSIUM 3.9 MMOL/L (3.6-5.0); SODIUM 137 MMOL/L (135-145)
[2020-02-23 05:31] LABS: CALCIUM 7.8 MG/DL (8.5-10.1)
[2020-02-23 05:32] LABS: GLUCOSE 215 MG/DL (70-105); TOTAL PROTEIN 5.2 GM/DL (6.4-8.2)
[2020-02-23 05:33] LABS: CARBON DIOXIDE 25 MMOL/L (21-32)
[2020-02-23 05:34] LABS: BILIRUBIN,TOTAL 2.4 MG/DL (0.1-1.0)
[2020-02-23 05:35] LABS: ALKALINE PHOSPHATASE 391 U/L (40-136)
[2020-02-23 05:36] LABS: CREATININE SERUM 0.69 MG/DL (0.60-1.30); GFR ESTIMATED > 60
[2020-02-23 05:37] LABS: BUN/CREATININE RATIO 17
[2020-02-23 05:39] LABS: ALANINE AMINOTRANSFERASE 1775 U/L (0-55)
[2020-02-23] MEDS: inSUlin ASPART (NovoLOG) 1 UNIT/0.01 ML (CHARGE PER UNIT) SC SCH ×4 (05:44→21:31)
[2020-02-23] MEDS: metroNIDAZOLE 500MG/100ML IVPB 250 MG in SYRINGE-IVPB 0 SYRINGE IV SCH ×3 (05:44→21:26)
--- NOTE | 2020-02-23 07:44 | Progress Note - Surgery ---
JG HASSAN MED STUDENT 02/23/20 0744: Subjective Date Seen by a Provider: Feb 23, 2020 Time Seen by a Provider: 07:30 Subjective/Events-last exam Pt is 3 days S/P cholecystectomy. pt was sitting up in bed watching tv. pt said that he hasn't had any nausea today, also denied any vomiting. pt stated that he is constipated, last bm was before Sunday02/20/20. pt stated that he is having abdominal pain. pt stated that the pain is located all across the abdomen. pt is rated as am 8 out of 10. pt stated that he felt the pain was more from the dry heaving than from the surgery. All surgical incisions are intact, no erythema, swelling, or discharge noted. the incisions still have the glue on them. Review of Systems General: No Chills, No Fatigue Pulmonary: No Dyspnea, No Cough Cardiovascular: No: Chest Pain, Palpitations Gastrointestinal: Abdominal Pain, Constipation; No: Nausea, Vomiting, Diarrhea Genitourinary: No Dysuria, No Incontinence Focused Exam Respiratory: Chest Non Tender, Lungs Clear, Normal Breath Sounds, No Accessory Muscle Use, No Respiratory Distress Cardiovascular: Regular Rate, Rhythm, No Murmur, Normal Peripheral Pulses Peripheral Pulses: 2+ Carotid (R), 2+ Carotid (L), 2+ Dorsalis Pedis (R), 2+ Left Dors-Pedis (L), 2+ Radial Pulses (R), 2+ Radial Pulses (L) Skin: normal color, warm/dry; No diaphoresis Objective Exam Vital Signs Date Time Temp Pulse Resp B/P (MAP) Pulse Ox O2 Delivery O2 Flow Rate FiO2 02/23/20 04:15 36.3 61 18 110/57 (74) 96 Room Air 02/23/20 01:03 36.7 83 18 112/67 (82) 97 Room Air 02/22/20 20:15 Room Air 02/22/20 19:10 36.4 71 18 109/55 (73) 98 Room Air 02/22/20 16:00 36.2 85 20 123/69 (87) 98 Room Air 02/22/20 15:04 Room Air 02/22/20 14:35 36.0 75 20 106/66 98 Room Air 02/22/20 14:23 36.8 75 20 117/70 (89) 99 Room Air 02/22/20 10:28 36.8 79 20 130/69 (89) 99 Room Air I & O 02/23/20 07:00 Intake Total 1150 ml Output Total 575 ml Balance 575 ml Capillary Refill : Less Than 3 Seconds General Appearance: No Apparent Distress, WD/WN HEENT: PERRL/EOMI, Scleral Icterus (L), Scleral Icterus (R) Neck: Normal Inspection; No Lymphadenopathy (L), No Lymphadenopathy (R) Respiratory: Chest Non Tender, Lungs Clear, Normal Breath Sounds, No Accessory Muscle Use, No Respiratory Distress Cardiovascular: Regular Rate, Rhythm, No Murmur Peripheral Pulses: 2+ Carotid (R), 2+ Carotid (L), 2+ Dorsalis Pedis (R), 2+ Left Dors-Pedis (L), 2+ Radial Pulses (R), 2+ Radial Pulses (L) Gastrointestinal: normal bowel sounds, soft, tenderness Neurologic/Psychiatric: Alert, Oriented x3, No Motor/Sensory Deficits, Normal Mood/Affect, legal collector II-XII Norm as Tested Skin: Normal Color, Warm/Dry; No Diaphoresis Lymphatic: No Adenopathy Results Lab Laboratory Tests 02/22/20 11:57: White Blood Count 4.3, Red Blood Count 4.64, Hemoglobin 13.4, Hematocrit 41, Mean Corpuscular Volume 88, Mean Corpuscular Hemoglobin 29, Mean Corpuscular Hemoglobin Concent 33, Red Cell Distribution Width 13.5, Platelet Count 216, Mean Platelet Volume 9.7, Neutrophils (%) (Auto) 66, Lymphocytes (%) (Auto) 21, Monocytes (%) (Auto) 12, Eosinophils (%) (Auto) 1, Basophils (%) (Auto) 1, Neutrophils # (Auto) 2.9, Lymphocytes # (Auto) 0.9L, Monocytes # (Auto) 0.5, Eosinophils # (Auto) 0.0, Basophils # (Auto) 0.0, Sodium Level 135, Potassium Level 4.5, Chloride Level 100, Carbon Dioxide Level 23, Anion Gap 12, Blood Urea Nitrogen 18, Creatinine 0.62, Estimat Glomerular Filtration Rate > 60, BUN/Creatinine Ratio 29, Glucose Level 233H, Calcium Level 8.0L, Corrected Calcium 8.9, Magnesium Level 1.5L, Total Bilirubin 5.5H, Aspartate Amino Transf (AST/SGOT) 1795H, Alanine Aminotransferase (ALT/SGPT) 2204H, Alkaline Phosphatase 452H, C-Reactive Protein High Sensitivity 2.45H, Total Protein 5.7L, Albumin 2.9L, Lipase 12, Acetaminophen Level < 10L 02/22/20 12:30: Urine Color AMBERH, Urine Clarity CLEAR, Urine pH 7.0, Urine Specific [place] 1.025H, Urine Protein 2+H, Urine Glucose (UA) 1+H, Urine Ketones 3+H, Urine Nitr ite NEGATIVE, Urine Bilirubin 3+H, Urine Urobilinogen 4.0, Urine Leukocyte Esterase NEGATIVE, Urine RBC (Auto) NEGATIVE, Urine RBC NONE, Urine WBC 0-2, Urine Crystals NONE, Urine Bacteria TRACE, Urine Casts NONE, Urine Mucus MODERATEH, Urine Culture Indicated NO, Urine Opiates Screen POSITIVEH, Urine Oxycodone Screen NEGATIVE, Urine Methadone Screen NEGATIVE, Urine Propoxyphene Screen NEGATIVE, Urine Barbiturates Screen NEGATIVE, Ur Tricyclic An tidepressants Screen NEGATIVE, Urine Phencyclidine Screen NEGATIVE, Urine Amphetamines Screen NEGATIVE, Urine Methamphetamines Screen NEGATIVE, Urine Benzodiazepines Screen NEGATIVE, Urine Cocaine Screen NEGATIVE, Urine Cannabinoids Screen POSITIVEH 02/22/20 16:57: Glucometer 213H 02/22/20 20:45: Glucometer 214H 02/23/20 04:51: White Blood Count 3.1L, Red Blood Count 4.44, Hemoglobin 12.7L, Hematocrit 39L, Mean Corpuscular Volume 88, Mean Corpuscular Hemoglobin 29, Mean Corpuscular Hemoglobin Concent 33, Red Cell Distribution Width 13.8, Platelet Count 202, Mean Platelet Volume 9.5, Neutrophils (%) (Auto) 46, Lymphocytes (%) (Auto) 36, Monocytes (%) (Auto) 13H, Eosinophils (%) (Auto) 4, Basophils (%) (Auto) 1, Neutrophils # (Auto) 1.4L, Lymphocytes # (Auto) 1.1, Monocytes # (Auto) 0.4, Eosinophils # (Auto) 0.1, Basophils # (Auto) 0.0, Sodium Level 137, Potassium Level 3.9, Chloride Level 104, Carbon Dioxide Level 25, Anion Gap 8, Blood Urea Nitrogen 12, Creatinine 0.69, Estimat Glomerular Filtration Rate > 60, BUN/Creatinine Ratio 17, Glucose Level 215H, Calcium Level 7.8L, Corrected Calcium 9.0, Total Bilirubin 2.4#H, Aspartate Amino Transf (AST/SGOT) 1166#H, Alanine Aminotransferase (ALT/SGPT) 1775#H, Alkaline Phosphatase 391H, Total Protein 5.2L, Albumin 2.5L Assessment/Plan Assessment/Plan Assessment/Plan Hepatitis A Elevated bili and transminases 3 days S/P cholecystectomy Clinical Quality Measures DVT/VTE Risk/Contraindication: Risk Factor Score Per Nursin RFS Level Per Nursing on Admit: 3=High KRISTIAN WHEELER DO 02/23/20 1657: Subjective Time Seen by a Provider: 16:49 Subjective/Events-last exam Pt seen and examined, states he feels better but still has abdominal pain. He thinks it is more because of the dry heaves. Review of Systems Pulmonary: No Dyspnea, No Cough Cardiovascular: No: Chest Pain, Palpitations Gastrointestinal: Nausea, Abdominal Pain, Constipation; No: Vomiting, Diarrhea Objective Exam HEENT: Scleral Icterus (L), Scleral Icterus (R) Respiratory: Lungs Clear, Normal Breath Sounds, No Accessory Muscle Use, No Respiratory Distress Cardiovascular: Regular Rate, Rhythm, No Murmur Gastrointestinal: soft, tenderness (at incisions) Assessment/Plan Assessment/Plan Assessment/Plan Increased Bili, AST, ALT HIDA shows no problem with CBD, I believe this is all due to Hepatitis A. Max medical management, I will follow along. Supervisory-Addendum Brief Verification & Attestation Participated in pt care: history, MDM, physical Personally performed: exam, history, MDM Care discussed with: Medical Student Procedures: n/a Verification and Attestation of Medical Student E/M Service A medical student performed and documented this service. I then reviewed and verified all information documented by the medical student and made modifications to such information, when appropriate. I personally performed a physical exam, medical decision making and then discussed any differences between the notes and made revisions as necessary to create one note. Kristian Wheeler , 02/23/20 , 16:57 JG HASSAN MED STUDENT Feb 23, 2020 07:44 KRISTIAN WHEELER DO Feb 23, 2020 16:57
[2020-02-23 08:00] VITALS: BP 116/80
[2020-02-23] MEDS: PROMETHAZINE INJ 25 MG/ML (PHENERGAN) AMP IVP PRN ×2 (09:21→18:20)
[2020-02-23] MEDS: FAMOTIDINE 20MG/2ML IV (PEPCID) IVP SCH ×2 (09:21→21:34)
[2020-02-23] MEDS: GABAPENTIN 400 MG (NEURONTIN) CAP PO SCH ×4 (09:22→21:26)
[2020-02-23] MEDS ORDERED: CATHETER FLUSH 10 ML SYR IV PRN (10:00)
--- NOTE | 2020-02-23 10:25 | NUR ---
PT TO RADIOLOGY VIA
--- NOTE | 2020-02-23 11:44 | NUR ---
Pt arrived back to room from radiology
--- NOTE | 2020-02-23 11:46 | Progress Note - Hospitalist ---
SINA STUBBS MED STUDENT 02/23/20 1146: Subjective HPI/CC On Admission Date Seen by Provider: Feb 23, 2020 Time Seen by Provider: 09:30 34 yo wm with hx iddm presents with 2 day hx N ,V no diarrhea. Had K[facility]y with normal cholangiogram 2 days ago . felt fine after. Told he had Hep A 1 week ago at [place]. 02-07-20 had a normal bili here. Subjective/Events-last exam Pt is awake and alert States he feels nauseated, no emesis, no dry heaving Discomfort/pain felt to his abd w/ breathing/movement VS stable Labs improving; AST 1795 to 1166 ALT 2204 to 1775 AlkPh 452 to 391 Review of Systems General: Fatigue HEENT: No Head Aches, No Visual Changes, No Eye Pain, No Ear Pain, No Dysphasia, No Sinus Congestion, No Post Nasal Drip, No Sore Throat Pulmonary: No Dyspnea, No Cough, No Pleuritic Chest Pain, No Other Cardiovascular: No: Chest Pain, Palpitations, Orthopnea, Paroxysmal Noc. Dyspnea, Edema, Lt Headedness Gastrointestinal: Nausea (no emesis, dry heaving; small BM this AM), Abdominal Pain Genitourinary: No Dysuria, No Frequency, No Incontinence, No Hematuria, No Retention, No Other Musculoskeletal: No: neck pain, shoulder pain, arm pain, back pain, hand pain, leg pain, foot pain Neurological: No: Weakness, Numbness, Incoordination, Change in speech, Confusion, Seizures, Other Focused Exam Time of Focused Exam: 09:30 Respiratory: Chest Non Tender, Lungs Clear, Normal Breath Sounds, No Accessory Muscle Use, No Respiratory Distress Cardiovascular: Regular Rate, Rhythm, No Edema, No Gallop, No JVD, No Murmur, Normal Peripheral Pulses Capillary Refill: Less Than 3 Seconds Skin: normal color, warm/dry, other (Laparoscopic incision sites to abd x4, no signs of erythema/drainage) Objective Exam Vital Signs Vital Signs Date Time Temp Pulse Resp B/P (MAP) Pulse Ox O2 Delivery O2 Flow Rate FiO2 02/23/20 08:00 36.2 75 18 116/80 (92) 98 Room Air Capillary Refill : Less Than 3 SecondsLess Than 3 Seconds General Appearance: WD/WN, Mild Distress (nauseated, tenderness to abd) HEENT: Normal ENT Inspection Neck: Full Range of Motion, Normal Inspection, Non Tender Respiratory: Chest Non Tender, Lungs Clear, Normal Breath Sounds, No Accessory Muscle Use, No Respiratory Distress Cardiovascular: Regular Rate, Rhythm, No Edema, No Gallop, No JVD, No Murmur Gastrointestinal: Normal Bowel Sounds, Tenderness Extremity: Normal Capillary Refill, Normal Inspection, Normal Range of Motion, Non Tender Neurologic/Psychiatric: Alert, Oriented x3, No Motor/Sensory Deficits, Normal Mood/Affect Skin: Normal Color, Warm/Dry, Other (Laparoscopic sites x4) Results/Procedures Lab Laboratory Tests 02/22/20 11:57 02/23/20 04:51 Patient resulted labs reviewed. Assessment/Plan Assessment and Plan Assess & Plan/Chief Complaint A: s/p cholecystectomy 02/20/20 Acute Hepatitis N/V/pain Hepatitis A Cholelithiasis T1DM P: HIDA scan later today f/u with Dr. Winter Monitor pain/nausea/VS Monitor labs Diagnosis/Problems Diagnosis/Problems (1) Gallstones (2) Hyperbilirubinemia Status: Acute (3) Nausea and vomiting Status: Acute Qualifiers: Qualified Codes: R11.2 - Nausea with vomiting, unspecified (4) Acute hepatitis A Status: Acute (5) Diabetes mellitus, insulin dependent (IDDM), uncontrolled Status: Chronic Clinical Quality Measures DVT/VTE Risk/Contraindication: Risk Factor Score Per Nursin RFS Level Per Nursing on Admit: 3=High LEXI MCLEAN DO 02/23/20 2100: Subjective Subjective/Events-last exam Bowels moved a little bit today Liver enzymes improved Nausea and vomiting at times but the medication really helps Pain is good HIDA scan noted and it was normal now having some low blood sugars Overall improved status Review of Systems Gastrointestinal: Nausea (no emesis, dry heaving; small BM this AM), Vomiting, Abdominal Pain Objective Exam General Appearance: No Apparent Distress, WD/WN, Chronically ill Respiratory: Lungs Clear Cardiovascular: Regular Rate, Rhythm Assessment/Plan Assessment and Plan Assess & Plan/Chief Complaint Supportive care Pain meds HIDA Supervisory-Addendum Brief Verification & Attestation Participated in pt care: history, MDM, physical Personally performed: exam, history, MDM, supervision of care Care discussed with: Medical Student Procedures: n/a Results interpretation: Verified all documentation Verification and Attestation of Medical Student E/M Service A medical student performed and documented this service in my presence. I reviewed and verified all information documented by the medical student and made modifications to such information, when appropriate. I personally performed the physical exam and medical decision making. Lexi Mclean, Feb 23, 2020,21:00 SINA STUBBS MED STUDENT Feb 23, 2020 11:46 LEXI MCLEAN DO Feb 23, 2020 21:00
[2020-02-23 12:00] VITALS: BP 136/73
[2020-02-23] MEDS ORDERED: DEXTROSE 50% 50 ML (IMS) SYR IV ONE (12:00)
[2020-02-23] MEDS ORDERED: DEXTROSE 50% 50 ML (IMS) SYR ONE (12:02)
--- NOTE | 2020-02-23 12:10 | Diagnostic Imaging Report ---
INDICATION: Hepatic dysfunction. Patient is status post cholecystectomy on 02/20/2020. FINDINGS: Patient was administered 5.5 mCi of technetium-99m Choletec intravenously and imaging over the abdomen was performed. There is homogeneous uptake of activity by the liver. There is prompt excretion of activity into the common duct with passage into the small bowel. Gallbladder is surgically absent. No abnormal accumulation of activity is seen to suggest bile leak. There does appear to be some mild gastric reflux. IMPRESSION: Patent common bile duct. There is no evidence of bile leak. Note is made of mild bile gastric reflux. Dictated by: Dictated on workstation # [id number]
--- NOTE | 2020-02-23 12:18 | NUR ---
Dr Phan notified for BS 55. 1/2 amp d50 given per order. Will recheck BS in 15min.
--- NOTE | 2020-02-23 13:32 | NUR ---
I SPOKE WITH THE PATIENT AND WENT THROUGH THE EXTERNAL MED HISTORY TO COMPLETE THIS MED REC. PATIENT STATES THAT HE IS NOT TAKING ANY OVER THE COUNTER MEDICATIONS.
--- NOTE | 2020-02-23 13:38 | NUR ---
DR ROCHA CONTACTED FOR DIET ORDER PER PT REQUEST.
--- NOTE | 2020-02-23 14:30 | NUR ---
"RD ASSESSMENT PMHx: HTN; hepatitis-A; DM; s/p cholecystectomy PT INTERACTION: Pt was awake and pleasant during consult for MST score. Pt states current appetite is good. Note no meals have been recorded, per chart review. Pt states following a regular diet at home, and has difficulties swallowing food at times. Pt states recent issues with nausea and vomiting. Pt states no recent issues with constipation or diarrhea and that his last BM was 02/22. Note pt not currently on bowel regimen per chart review. Pt states recent 35# wt loss x2 1/2 months. Not recent 24# wt loss x2mon, per chart review. This is significant wt loss at 12% x2mon. Upon visual assessment, pt appears to be adequately nourished with no visible signs of muscle/fat wasting a BMI of 26.6 (Overweight BMI for age). Pt states current DM management is pretty good. Note unable to determine recent HbA1c, per chart review. Given current appetite, wt hx, and visual assessment, pt does not meet criteria for malnutrition per ASPEN guidelines. ABNORMAL NUTRITION-RELATED LAB VALUES LOW: Pro 5.2; alb 2.5 HIGH: glu 215; bili 2.4; AST 1166; ALT 1776; alkphos 391 Est. kcal needs: 1675 kcal | 20 kcal/kg Est. Pro needs: 84 g Pro | 1.0 g Pro/kg PES STATEMENT: Inadequate oral intake (NI-2.1) related to nausea | vomiting as evidenced by pt interview INTERVENTION: Continue with current diet order of CHO 60g/m 0snack diet. Pt may benefit from nutrition supplementation if PO intake declines. Will continue to follow and reassess as pt needs, intake, and status change. Elkin Beckwith, MS, RD, LD"
[2020-02-23 16:00] VITALS: BP 122/65
[2020-02-23] MEDS: ONDANSETRON 4 MG/2 ML (SDV) Z0FRAN IVP PRN (16:02)
--- NOTE | 2020-02-23 18:13 | NUR ---
DR MCLEAN NOTIFIED FOR PO PAIN MED AND STOOL SOFTENER.
[2020-02-23 20:00] VITALS: BP 122/75
[2020-02-23] MEDS ORDERED: fentaNYL INJECTION 100 MCG/2 ML AMP IVP PRN (20:30)
[2020-02-23] MEDS ORDERED: polyethylene glycoL POWDER 17 GM (MIRALAX) PACK ONE (21:04)
[2020-02-23] MEDS ORDERED: SENNA W/DOCUSATE (SENOKOT S) TABLET ONE (21:12)
[2020-02-23] MEDS: polyethylene glycoL POWDER 17 GM (MIRALAX) PACK PO SCH (21:25)
[2020-02-23] MEDS: SENNA W/DOCUSATE (SENOKOT S) TABLET PO SCH (21:27)
[2020-02-24 00:07] VITALS: BP 120/70
[2020-02-24] MEDS: LACTATED RINGERS 1,000 ML IV SCH ×2 (00:12→04:20)
[2020-02-24 04:20] VITALS: BP 116/72
[2020-02-24 05:42] LABS: BASOPHILS % (AUTO) 1 % (0-10); EOSINOPHILS # (AUTO) 0.1 10^3/uL (0.0-0.3); EOSINOPHILS % (AUTO) 4 % (0-10); HEMATOCRIT 38 % (40-54); HEMOGLOBIN 12.2 G/DL (13.3-17.7); LYMPHOCYTES # (AUTO) 1.3 X 10^3 (1.0-4.0); LYMPHOCYTES % (AUTO) 43 % (12-44); MEAN CORPUSCULAR HEMOGLOBIN 28 PG (25-34); MEAN CORPUSCULAR HGB CONC 32 G/DL (32-36); MEAN CORPUSCULAR VOLUME 88 FL (80-99); MEAN PLATELET VOLUME 9.5 FL (7.4-10.4); MONOCYTES # (AUTO) 0.4 X 10^3 (0.0-1.0); MONOCYTES % (AUTO) 13 % (0-12); NEUTROPHILS # (AUTO) 1.2 X 10^3 (1.8-7.8); NEUTROPHILS % (AUTO) 40 % (42-75); PLATELET COUNT 216 10^3/uL (130-400)
[2020-02-24 05:53] LABS: ALBUMIN 2.5 GM/DL (3.2-4.5); CHLORIDE 104 MMOL/L (98-107); POTASSIUM 3.6 MMOL/L (3.6-5.0); SODIUM 138 MMOL/L (135-145)
[2020-02-24 05:54] LABS: CALCIUM 7.8 MG/DL (8.5-10.1)
[2020-02-24 05:55] LABS: GLUCOSE 65 MG/DL (70-105); TOTAL PROTEIN 5.2 GM/DL (6.4-8.2)
[2020-02-24 05:56] LABS: CARBON DIOXIDE 28 MMOL/L (21-32)
[2020-02-24 05:57] LABS: BILIRUBIN,TOTAL 1.9 MG/DL (0.1-1.0)
[2020-02-24 05:59] LABS: ALKALINE PHOSPHATASE 394 U/L (40-136); CREATININE SERUM 0.62 MG/DL (0.60-1.30); GFR ESTIMATED > 60
[2020-02-24 06:00] LABS: BUN/CREATININE RATIO 15
[2020-02-24] MEDS: inSUlin ASPART (NovoLOG) 1 UNIT/0.01 ML (CHARGE PER UNIT) SC SCH ×4 (06:01→21:35)
[2020-02-24] MEDS: metroNIDAZOLE 500MG/100ML IVPB 250 MG in SYRINGE-IVPB 0 SYRINGE IV SCH (06:01)
[2020-02-24 06:02] LABS: ALANINE AMINOTRANSFERASE 1242 U/L (0-55)
[2020-02-24 08:00] VITALS: BP 129/78
[2020-02-24] MEDS: SENNA W/DOCUSATE (SENOKOT S) TABLET PO SCH ×2 (08:22→21:26)
[2020-02-24] MEDS: GABAPENTIN 400 MG (NEURONTIN) CAP PO SCH ×4 (08:22→21:41)
[2020-02-24] MEDS: FAMOTIDINE 20MG/2ML IV (PEPCID) IVP SCH ×2 (08:22→21:26)
--- NOTE | 2020-02-24 11:11 | Progress Note - Hospitalist ---
SINA STUBBS MED STUDENT 02/24/20 1111: Subjective HPI/CC On Admission Date Seen by Provider: Feb 24, 2020 Time Seen by Provider: 09:30 34 yo wm with hx iddm presents with 2 day hx N ,V no diarrhea. Had Kasey with normal cholangiogram 2 days ago . felt fine after. Told he had Hep A 1 week ago at [place]. 02-07-20 had a normal bili here. Subjective/Events-last exam Pt is awake, NAD Complains of 5/10 abd pain Pain control is improved with OxyIR vs Fentanyl IV Nausea improved from yesterday 1x BM yesterday Eating well since NPO status yesterday for HIDA scan Glucose was 65 in AM labs; pt felt better after eating breakfast Ambulating well Urine output improving AST 1166 to 514 ALT 1775 to 1242 Review of Systems General: No Chills, No Fatigue, No Malaise, No Appetite Pulmonary: No Dyspnea, No Cough Cardiovascular: No: Chest Pain, Orthopnea, Edema, Lt Headedness Gastrointestinal: Nausea (mild nausea, improved since yesterday), Abdominal Pain Genitourinary: No Dysuria Musculoskeletal: No: neck pain, shoulder pain, arm pain, back pain, hand pain, leg pain, foot pain Neurological: Numbness (and tingling) Focused Exam Time of Focused Exam: 929 Respiratory: Chest Non Tender, Lungs Clear, Normal Breath Sounds, No Accessory Muscle Use, No Respiratory Distress Cardiovascular: Regular Rate, Rhythm, No Edema, No JVD, No Murmur Capillary Refill: Less Than 3 Seconds Skin: normal color, warm/dry, other (4x laparoscopic incisions to abd sealed with dermabond, intact, no s/s infection) Objective Exam Vital Signs Vital Signs Date Time Temp Pulse Resp B/P (MAP) Pulse Ox O2 Delivery O2 Flow Rate FiO2 02/24/20 08:00 36.6 70 16 129/78 (95) 98 Room Air Capillary Refill : Less Than 3 SecondsLess Than 3 Seconds General Appearance: No Apparent Distress, WD/WN HEENT: Normal ENT Inspection Neck: Normal Inspection Respiratory: Chest Non Tender, Lungs Clear, Normal Breath Sounds, No Accessory Muscle Use, No Respiratory Distress, Other (reduced inspiratory effort r/t abd pain) Cardiovascular: Regular Rate, Rhythm, No Edema, No Gallop, No JVD, No Murmur Gastrointestinal: Normal Bowel Sounds, Tenderness Back: Normal Inspection Extremity: Normal Capillary Refill, Normal Inspection, Normal Range of Motion Neurologic/Psychiatric: Alert, Oriented x3, Normal Mood/Affect, Other (tingling sensation "around the whole body"; pt states r/t missed Gabapentin doses yesterday) Skin: Normal Color, Warm/Dry, Other (4x laparoscopic incisions to abd sealed with dermabond, intact, no s/s infection) Results/Procedures Lab Laboratory Tests 02/24/20 05:15 Patient resulted labs reviewed. Assessment/Plan Assessment and Plan Assess & Plan/Chief Complaint A: s/p cholecystectomy 02/20/20 Acute Hepatitis N/V/pain Hepatitis A Cholelithiasis T2DM P: HIDA scan yesterday showed no blockage Monitor pt overnight Check labs tomorrow and plan for d/c if continuing to improve Continue monitoring glucose, encourage PO intake Encourage ambulation Diagnosis/Problems Diagnosis/Problems (1) Gallstones (2) Hyperbilirubinemia Status: Acute (3) Nausea and vomiting Status: Acute Qualifiers: Qualified Codes: R11.2 - Nausea with vomiting, unspecified (4) Acute hepatitis A Status: Acute (5) Diabetes mellitus, insulin dependent (IDDM), uncontrolled Status: Chronic Clinical Quality Measures DVT/VTE Risk/Contraindication: Risk Factor Score Per Nursin RFS Level Per Nursing on Admit: 3=High LEXI MCLEAN DO 02/24/20 1147: Subjective HPI/CC On Admission Date Seen by Provider: Feb 24, 2020 Time Seen by Provider: 09:00 Subjective/Events-last exam AST and ALT 514 and 1242 respectively Alk-Phos of 394 Hida-scan was normal [place] IV fluid Eating and drinking well Will have PT get him up and around Discharge planned for tomorrow Review of Systems General: Fatigue, Malaise Neurological: Weakness Objective Exam General Appearance: No Apparent Distress, WD/WN HEENT: PERRL/EOMI, Normal ENT Inspection, Pharynx Normal, Moist Mucous Membranes Neck: Full Range of Motion, Normal Inspection, Non Tender, Supple, Carotid Bruit Respiratory: Chest Non Tender, Lungs Clear, Normal Breath Sounds, No Accessory Muscle Use, No Respiratory Distress Cardiovascular: Regular Rate, Rhythm, No Edema, No Gallop, No JVD, No Murmur, Normal Peripheral Pulses Gastrointestinal: Normal Bowel Sounds, No Organomegaly, No Pulsatile Mass, Non Tender, Soft Back: Normal Inspection, No CVA Tenderness, No Vertebral Tenderness Extremity: Normal Capillary Refill, Normal Inspection, Normal Range of Motion, Non Tender, No Calf Tenderness, No Pedal Edema Neurologic/Psychiatric: Alert, Oriented x3, No Motor/Sensory Deficits, Normal Mood/Affect Skin: Normal Color, Warm/Dry Lymphatic: No Adenopathy Assessment/Plan Assessment and Plan Assess & Plan/Chief Complaint 02/24/20: Monitor liver function test Stop IV fluid Ambulate Supervisory-Addendum Brief Verification & Attestation Participated in pt care: history, MDM, physical Personally performed: exam, history, MDM, supervision of care Care discussed with: Medical Student Procedures: n/a Results interpretation: Verified all documentation Verification and Attestation of Medical Student E/M Service A medical student performed and documented this service in my presence. I reviewed and verified all information documented by the medical student and made modifications to such information, when appropriate. I personally performed the physical exam and medical decision making. Lexi Mclean, Feb 24, 2020,20:34 SINA STUBBS MED STUDENT Feb 24, 2020 11:11 LEXI MCLEAN DO Feb 24, 2020 11:47
[2020-02-24 12:24] VITALS: BP 110/69
[2020-02-24] MEDS: METRONIDAZOLE 250 MG/50 ML IV SCH ×4 (14:32→21:41)
--- NOTE | 2020-02-24 14:37 | Physical Therapy Evaluation ---
PT Evaluation-General Medical Diagnosis Admission Date Feb 22, 2020 at 12:50 Medical Diagnosis: acute hepatitis/N&V Onset Date: Feb 22, 2020 Therapy Diagnosis Therapy Diagnosis: debility Height/Weight Height (Feet): 5 Height (Inches): 10.00 Weight (Pounds): 240 Weight (Ounces): 0 Precautions Precautions/Isolations: Standard Precautions Referral Physician: Sylvester Reason for Referral: Evaluation/Treatment Medical History Pertinent Medical History: COPD, DM, HTN, Neuropathy Current History s/p cholecystecomy Reviewed History: Yes Social History Home: Single Level Current Living Status: Alone Entry Into Home: Level Entry Prior Prior Level of Function SCALE: Activities may be completed with or without assistive devices. 6-Agtpcydxkh-alzzawj completes the activity by him/herself with no assistance from a helper. 5-Set-up or Clean-up Assistance-helper sets up or cleans up; patient completes activity. Heber assists only prior to or following the activity. 4-Supervision or Touching Assistance-helper provides verbal cues and/or touching/steadying and/or contact guard assistance as patient completes activity. Assistance may be provided throughout the activity or intermittently. 3-Partial/Moderate Assistance-helper does LESS THAN HALF the effort. Heber lif ts, holds or supports trunk or limbs, but provides less than half the effort. 2-Substantial/Maximal Assistance-helper does MORE THAN HALF the effort. Heber lifts or holds trunk or limbs and provides more than half the effort. 4-Xhfhnqxkq-tomhxu does ALL the effort. Patient does none of the effort to complete the activity. Or, the assistance of 2 or more helpers is required for the patient to complete the activity. If activity was not attempted, code reason: 7-Patient Refused. 9-Not Applicable-not attempted and the patient did not perform the activity before the current illness, exacerbation or injury. 10-Not Attempted due to Environmental Limitations-(lack of equipment, weather restraints, etc.). 88-Not Attempted due to Medical Conditions or Safety Concerns. Bed Mobility: 6 Transfers (B,C,W/C): 6 Gait: 6 Stairs: 6 Indoor Mobility (Ambulation): Independent Stairs: Independent Prior Devices Use: None PT Evaluation-Current Subjective Patient report he is up independently in room without difficulty. Agrees to PT. Pain Numeric Pain Scale: 5-Moderate Pain Location: Right, Medial Location Body Site: Abdomen Pain Description: Acute Objective Patient Orientation: Normal For Age ROM/Strength ROM Lower Extremities bilateral LE WFL Strength Lower Extremities 4/5 grossly bilateral LE Integumentary/Posture Integumentary refer to nursing notes Bowel Incontinence: No Bladder Incontinence: No Posture WFL Neuromuscular (Tone, Coordination, Reflexes) grossly intact Sensory Vision: Functional Hearing: Functional Sensation Right Lower Extremit: Impaired Sensation Left Lower Extremity: Impaired Transfers Roll Left to Right (QC): 6 Sit to Lying (QC): 6 Lying to Sitting/Side of Bed(Q: 6 Sit to Stand (QC): 6 Gait Does the Patient Walk?: Yes Mode of Locomotion: Walk Anticipated Mode of Locomotion: Walk Walk 10 feet (QC): 6 Walk 50 ft with 2 Turns(QC): 6 Walk 150 ft (QC): 6 Distance: 600' Gait Assistive Device: None Comments/Gait Description slow, safe and functional Balance Sitting Static: Normal Sitting Dynamic: Normal Standing Static: Normal Standing Dynamic: Normal Assessment/Needs 34 y.o. male, is currently at [facility] with all gross motor skills and does not require skilled therapy intervention. Rehab Potential: Fair PT Plan Treatment/Plan Treatment Plan: Discontinue PT, goals met Treatment Duration: Feb 24, 2020 Frequency: 1 time per week Estimated Hrs Per Day: .25 hour per day Patient and/or Family Agrees t: Yes Time/GCodes Time In: 1331 Time Out: 1345 Total Billed Treatment Time: 14 Total Billed Treatment 1 visit EVLowC 14 min KOSTA CLARK PT Feb 24, 2020 14:37
--- NOTE | 2020-02-24 15:37 | NUR ---
VINAY NOTIFIED OF PT BLOOD GLUCOSE OF 401. ORDER TO GIVE 14U NOVOLOG NOW OBTAINED.
[2020-02-24 15:42] VITALS: BP 118/72
[2020-02-24 19:35] VITALS: BP 124/72
[2020-02-24] MEDS: polyethylene glycoL POWDER 17 GM (MIRALAX) PACK PO SCH (21:26)
[2020-02-25 00:29] VITALS: BP 122/70
[2020-02-25] MEDS: inSUlin ASPART (NovoLOG) 1 UNIT/0.01 ML (CHARGE PER UNIT) SC SCH (05:32)
[2020-02-25] MEDS: METRONIDAZOLE 250 MG/50 ML IV SCH ×2 (05:34)
[2020-02-25 06:11] LABS: BASOPHILS % (AUTO) 1 % (0-10); EOSINOPHILS # (AUTO) 0.2 10^3/uL (0.0-0.3); EOSINOPHILS % (AUTO) 5 % (0-10); HEMATOCRIT 37 % (40-54); LYMPHOCYTES # (AUTO) 1.6 10^3/uL (1.0-4.0); LYMPHOCYTES % (AUTO) 51 % (12-44); MEAN CORPUSCULAR HEMOGLOBIN 29 pg (25-34); MEAN CORPUSCULAR HGB CONC 33 g/dL (32-36); MEAN CORPUSCULAR VOLUME 87 fL (80-99); MEAN PLATELET VOLUME 9.9 fL (9.0-12.2); MONOCYTES # (AUTO) 0.3 10^3/uL (0.0-1.0); MONOCYTES % (AUTO) 8 % (0-12); NEUTROPHILS # (AUTO) 1.1 10^3/uL (1.8-7.8); NEUTROPHILS % (AUTO) 35 % (42-75); PLATELET COUNT 205 10^3/uL (130-400); WHITE BLOOD COUNT 3.1 10^3/uL (4.3-11.0)
[2020-02-25 06:33] LABS: ALANINE AMINOTRANSFERASE 867 U/L (0-55); ALBUMIN 2.5 GM/DL (3.2-4.5); ALKALINE PHOSPHATASE 353 U/L (40-136); BILIRUBIN,TOTAL 1.7 MG/DL (0.1-1.0); BUN/CREATININE RATIO 13; CALCIUM 7.7 MG/DL (8.5-10.1); CARBON DIOXIDE 27 MMOL/L (21-32); CHLORIDE 102 MMOL/L (98-107); CREATININE SERUM 0.61 MG/DL (0.60-1.30); GFR ESTIMATED > 60; GLUCOSE 156 MG/DL (70-105); POTASSIUM 3.8 MMOL/L (3.6-5.0); SODIUM 137 MMOL/L (135-145)
[2020-02-25 08:00] VITALS: BP 130/87
[2020-02-25] MEDS: GABAPENTIN 400 MG (NEURONTIN) CAP PO SCH (08:00)
[2020-02-25] MEDS: FAMOTIDINE 20MG/2ML IV (PEPCID) IVP SCH (08:00)
[2020-02-25] MEDS: SENNA W/DOCUSATE (SENOKOT S) TABLET PO SCH (08:00)
[2020-02-25] MEDS ORDERED: OXYC5TAB96 PO (10:37)
[2020-02-25] MEDS ORDERED: ONDA8TAB13 PO (10:37)
--- NOTE | 2020-02-25 10:39 | Discharge Summary ---
Discharge Summary Hospital Course Was the Problem List Reviewed?: Yes Problems/Dx: (1) Gallstones (2) Hyperbilirubinemia Status: Acute (3) Nausea and vomiting Status: Acute Qualifiers: Qualified Codes: R11.2 - Nausea with vomiting, unspecified (4) Acute hepatitis A Status: Acute (5) Diabetes mellitus, insulin dependent (IDDM), uncontrolled Status: Chronic Hospital Course Date of Admission: Feb 22, 2020 at 12:50 Admission Diagnosis : [facility] Date of Discharge: 02/25/20 Discharge Diagnosis: A: s/p cholecystectomy 02/20/20 Acute Hepatitis N/V/pain Hepatitis A Cholelithiasis T2DM P: HIDA scan yesterday showed no blockage Monitor pt overnight Check labs tomorrow and plan for d/c if continuing to improve Continue monitoring glucose, encourage PO intake Encourage ambulation Hospital Course: Hospital Course: Pt had an uneventful hospital course. He was admitted for elevated liver enzymes following a cholecystectomy and HIDA scan revealed no obstruction so he was provided supportive care, IV fluids, Insulin, and he was deemed stable for DC with a downward trend of liver enzymes and was told to follow up with close check up with liver panel on Sunday with [facility]. Labs and Pending Lab Test: Laboratory Tests 02/24/20 11:04: Glucometer 215H 02/24/20 15:26: Glucometer 401*H 02/24/20 20:33: Glucometer 241H 02/25/20 05:32: Glucometer 170H 02/25/20 05:55: White Blood Count 3.1L, Red Blood Count 4.20L, Hemoglobin 12.0L, Hematocrit 37L, Mean Corpuscular Volume 87, Mean Corpuscular Hemoglobin 29, Mean Corpuscular Hemoglobin Concent 33, Red Cell Distribution Width 13.2, Platelet Count 205, Mean Platelet Volume 9.9, Immature Granulocyte % (Auto) 0, Neutrophils (%) (Auto) 35L, Lymphocytes (%) (Auto) 51H, Monocytes (%) (Auto) 8, Eosinophils (%) (Auto) 5, Basophils (%) (Auto) 1, Neutrophils # (Auto) 1.1L, Lymphocytes # (Auto) 1.6, Monocytes # (Auto) 0.3, Eosinophils # (Auto) 0.2, Basophils # (Auto) 0.0, Immature Granulocyte # (Auto) 0.0, Sodium Level 137, Potassium Level 3.8, Chloride Level 102, Carbon Dioxide Level 27, Anion Gap 8, Blood Urea Nitrogen 8, Creatinine 0.61, Estimat Glomerular Filtration Rate > 60, BUN/Creatinine Ratio 13, Glucose Level 156H, Calcium Level 7.7L, Corrected Calcium 8.9, Total Bilirubin 1.7H, Aspartate Amino Transf (AST/SGOT) 235H, Alanine Aminotransferase (ALT/SGPT) 867#H, Alkaline Phosphatase 353H, Total Protein 5.0L, Albumin 2.5L Home Meds Active Ondansetron Odt (Ondansetron) 8 Mg Tab.rapdis 8 Mg PO Q6H Oxycodone IR (Oxycodone HCl) 5 Mg Tablet 10 Mg PO Q4H PRN Reported Levemir Flextouch (Insulin Detemir) 100 Unit/1 Ml Insuln.pen 45 Unit SQ HS Gabapentin 800 Mg Tablet 800 Mg PO QID Novolog Flexpen (Insulin Aspart) 300 Units/3 Ml Solution 5 Units SQ TIDWM Assessment/Pt Instructions chc 1 week Discharge Planning: <30 minutes discharge planning Discharge Instructions Discharge Diet: No Restrictions Activity as Tolerated: Yes Discharge Physical Examination Vital Signs Vital Signs Date Time Temp Pulse Resp B/P (MAP) Pulse Ox O2 Delivery O2 Flow Rate FiO2 02/25/20 08:00 36.8 58 18 130/87 (101) 99 Room Air Respiratory: Normal Breath Sounds Cardiovascular: Regular Rate, Rhythm Neurologic/Psychiatric: Alert, Oriented x3 Allergies: Coded Allergies: tramadol (Verified Adverse Reaction, Mild, N/V, 12/21/14) Discharge Summary Date of Admission Feb 22, 2020 at 12:50 Date of Discharge Discharge Date: Feb 25, 2020 Admission Diagnosis elevated LFT's - possible CBD obstruction ? hep A- by history? IDDM with inability to eat with ketosis but normal HCO3- at risk for DKA Plan; admit, surgical consult, ABX's in an abundance of caution since ascending cholangitis is a risk if obstructed. HIDDA scan -possible ERCP if abnormal- follow BS closely to avoid DKA. Discharge Diagnosis 02/24/20: Monitor liver function test Stop IV fluid Ambulate (1) Gallstones (2) Hyperbilirubinemia Status: Acute (3) Nausea and vomiting Status: Acute Qualifiers: Qualified Codes: R11.2 - Nausea with vomiting, unspecified (4) Acute hepatitis A Status: Acute (5) Diabetes mellitus, insulin dependent (IDDM), uncontrolled Status: Chronic Clinical Quality Measures DVT/VTE Risk/Contraindication: Risk Factor Score Per Nursin RFS Level Per Nursing on Admit: 3=High CARLOS MCLEAN DO Feb 25, 2020 10:38
--- NOTE | 2020-02-25 11:20 | Progress Note ---
S[employer] STUB[employer] MED STUDENT 02/25/20 1120: Progress Note Hospital course: 02/22/20 - 02/25/20 Alvaro is a 34yo male admitted for acute hepatitis and severe nausea s/p laparoscopic cholecystectomy on 02/20/20. On admission, he was dehydrated with severely elevated liver enzymes, with complaints of abd pain and nausea. He was started on IV fluids, Ceftriaxone and Metronidazole for empiric treatment of suspected cholangitis. HIDA scan showed patent bile ducts. He had issues with his blood glucose ranging from 55-401 that was managed with insulin/diet. His pain and nausea improved considerably during his stay and liver enzymes trended down significantly. LEXI MCLEAN DO 02/26/20 0458: Supervisory-Addendum Brief Verification & Attestation Participated in pt care: history, MDM, physical Personally performed: exam, history, MDM, supervision of care Care discussed with: Medical Student Procedures: n/a Results interpretation: Verified all documentation Verification and Attestation of Medical Student E/M Service A medical student performed and documented this service in my presence. I reviewed and verified all information documented by the medical student and made modifications to such information, when appropriate. I personally performed the physical exam and medical decision making. Lexi Mclean, Feb 26, 2020,04:58 SINA ST[employer] MED STUDENT Feb 25, 2020 11:20 LEXI MCLEAN DO Feb 26, 2020 04:58
== END 2020-02-25 11:05 | disposition home or self-care (01) | DRG 443 ==
LOC: EDUNIT# 10:25 → ER 10:26 → 4TH 12:50
PROVIDERS: ADMIT Internal Medicine; ATTEND Internal Medicine
DX: B15.9 Hepatitis A without hepatic coma (principal); R11.2 Nausea with vomiting, unspecified; E11.40 Type 2 diabetes mellitus with diabetic neuropathy, unspecified; E11.649 Type 2 diabetes mellitus with hypoglycemia without coma; E80.6 Other disorders of bilirubin metabolism; F17.220 Nicotine dependence, chewing tobacco, uncomplicated; J44.9 Chronic obstructive pulmonary disease, unspecified; M19.91 Primary osteoarthritis, unspecified site; M41.9 Scoliosis, unspecified; M54.9 Dorsalgia, unspecified; F32.9 Major depressive disorder, single episode, unspecified; Z91.19 Patient's noncompliance with other medical treatment and regimen; Z98.890 Other specified postprocedural states; Z79.4 Long term (current) use of insulin
CPT/HCPCS: 36415; 78226; 80053; 80306; 80329; 81000; 82962; 83690; 83735; 85025; 86141; G0378

== ENCOUNTER 2020-08-22 08:28 | Emergency (ER) | payer OTHER ==
[~2020-08-22] VITALS: Ht 177.8 cm; Wt 81.6 kg
[~2020-08-22 08:28] MED LIST changes: +ONDA8TAB13 PO; +OXC5T PO
[2020-08-22] MEDS ORDERED: ONDANSETRON 4 MG/2 ML (SDV) Z0FRAN ONE (08:34)
[2020-08-22] MEDS ORDERED: NS IV 1000 ML 1,000 ML ONE (08:38)
[2020-08-22] MEDS: NS IV 1000 ML 1,000 ML IV SCH ×2 (08:40→10:00)
[2020-08-22] MEDS ORDERED: ONDANSETRON 4 MG/2 ML (SDV) Z0FRAN IVP ONE (08:45)
--- NOTE | 2020-08-22 08:46 | ED General ---
General Stated Complaint: N/V Source of Information: Patient Exam Limitations: No Limitations History of Present Illness Date Seen by Provider: Aug 22, 2020 Time Seen by Provider: 08:40 Initial Comments Patient is a 35-year-old male who presents to the emergency department with a chief complaint of acute episode of nausea and vomiting onset this morning ar ound 5 or 6 AM. Patient denies any abnormal foods or unusual foods. No recent fevers, chills, productive cough. He complains of abdominal cramping. He denies diarrhea, black or bloody stools. No sick contacts. Patient states that he did not use any insulin this morning secondary to the nausea and vomiting. Last time he had insulin was last evening. Patient states he continues to smoke marijuana and smoked a couple of days ago. He denies black or bloody emesis. All other review of systems reviewed and negative except as stated. Timing/Duration: 1-3 Hours Severity: Severe Associated Systoms: Nausea/Vomiting Allergies and Home Medications Allergies Coded Allergies: tramadol (Verified Adverse Reaction, Mild, N/V, 12/21/14) Home Medications Gabapentin 800 Mg Tablet, 800 MG PO QID, (Reported) Insulin Aspart 300 Units/3 Ml Solution, 5 UNITS SQ TIDWM, (Reported) Insulin Detemir 100 Unit/1 Ml Insuln.pen, 45 UNIT SQ HS, (Reported) Ondansetron 8 Mg Tab.rapdis, 8 MG PO Q6H Prescribed by: CARLOS MCLEAN on 02/25/20 1037 Oxycodone Hcl 5 Mg Tablet, 10 MG PO Q4H PRN for PAIN-SEVERE (8-10) Prescribed by: CARLOS MCLEAN on 02/25/20 1038 Patient Home Medication List Home Medication List Reviewed: Yes Review of Systems Review of Systems Constitutional: see HPI EENTM: no symptoms reported Respiratory: no symptoms reported Cardiovascular: no symptoms reported Gastrointestinal: nausea, vomiting Genitourinary: no symptoms reported, frequency Musculoskeletal: no symptoms reported Skin: no symptoms reported All Other Systems Reviewed Negative Unless Noted: Yes Past Qruvuzt-Zjvikw-Cxjehs Hx Patient Social History Drug of Choice: POT Type Used: Smokeless Tobacco Former Smoker, Quit: Aug 14, 2017 2nd Hand Smoke Exposure: No Recent Hopitalizations: Yes (silvia) Immunizations Up To Date Tetanus Booster (TDap): Unknown Date of Pneumonia Vaccine: Aug 27, 2011 Date of Influenza Vaccine: Mar 04, 2019 Seasonal Allergies Seasonal Allergies: No Past Medical History Surgeries: Yes Gallbladder Respiratory: Yes (copd dx by patient) COPD Currently Using CPAP: No Currently Using BIPAP: No Cardiac: Yes Hypertension Neurological: Yes Neuropathy Reproductive Disorders: No Sexually Transmitted Disease: No HIV/AIDS: No Genitourinary: No Kidney Infection Gastrointestinal: Yes (ELEVATED LIVER ENZYMES, Hep A) Liver Disease/Jaundice Musculoskeletal: Yes Arthritis, Scoliosis, Chronic Back Pain Endocrine: Yes (dm) Diabetes, Insulin dep HEENT: No Hearing Impairment: Denies Cancer: No Psychosocial: Yes (POLYSUBSTANCE ABUSE) Depression Integumentary: No Blood Disorders: No Adverse Reaction/Blood Tranf: No Family Medical History Alcoholism 19 FATHER G8 BROTHER Congenital heart disease 19 FATHER Family history: Cardiovascular disease 19 FATHER, Onset:40's - 50 Family history: Diabetes mellitus 19 MOTHER Family history: Hypertension 19 FATHER Heart disease 19 FATHER History of - respiratory disease 19 FATHER History of drug abuse 19 MOTHER Hypercholesterolemia 19 FATHER Myocardial infarction 19 FATHER Seizure disorder 19 FATHER No Family History of: Abdominal aortic aneurysm Kingsley's disease Cancer Congestive heart failure Cystic fibrosis Dementia Dysphagia Family history: Allergy Family history: Alzheimer's disease Family history: Arthritis Family history: Asthma Family history: Breast disease Family history: Coronary thrombosis Family history: Gastrointestinal disease Family history: Glaucoma Family history: Osteoporosis Family history: Thyroid disorder Headache Hearing loss Hereditary disease History of - anemia History of - disorder Human immunodeficiency virus (HIV) seropositivity Infertile Kidney disease Malignant neoplasm of lung Parkinson's disease Prostate cancer Psychotic disorder Stroke Tuberculosis Visual impairment No Pertinent Family Hx Physical Exam Vital Signs Vital Signs - First Documented 08/22/20 08:36 Temp 34.8 Pulse 83 Resp 20 B/P (MAP) 148/85 (106) Pulse Ox 99 O2 Delivery Room Air Capillary Refill : Height, Weight, BMI Height: 5'10.00" Weight: 240lbs. 0oz. [id number]; 26.57 BMI Method:Stated General Appearance: WD/WN, Moderate Distress Eyes: Bilateral Eye Normal Inspection, Bilateral Eye PERRL, Bilateral Eye EOMI HEENT: PERRL/EOMI Neck: Normal Inspection Respiratory: Lungs Clear, Normal Breath Sounds, No Accessory Muscle Use, No Respiratory Distress Cardiovascular: Regular Rate, Rhythm Gastrointestinal: Normal Bowel Sounds, Soft, Tenderness (mild tenderness to anterior abdominal wall with palpation) Extremity: Normal Inspection Neurologic/Psychiatric: Alert, Oriented x3, No Motor/Sensory Deficits, Normal Mood/Affect Skin: Normal Color, Diaphoresis Progress/Results/Core Measures Suspected Sepsis SIRS Temperature: Pulse: Respiratory Rate: Laboratory Tests 08/22/20 08:41: White Blood Count 6.9 Blood Pressure / Mean: Laboratory Tests 08/22/20 08:41: Creatinine 1.01, Platelet Count 268, Total Bilirubin 0.5 Results/Orders Lab Results Laboratory Tests Test 08/22/20 08:41 08/22/20 08:45 08/22/20 08:49 08/22/20 11:00 Range/Units White Blood Count 6.9 4.3-11.0 10^3/uL Red Blood Count 4.99 4.30-5.52 10^6/uL Hemoglobin 14.5 13.3-17.7 g/dL Hematocrit 43 40-54 % Mean Corpuscular Volume 87 80-99 fL Mean Corpuscular Hemoglobin 29 25-34 pg Mean Corpuscular Hemoglobin Concent 34 32-36 g/dL Red Cell Distribution Width 12.3 10.0-14.5 % Platelet Count 268 130-400 10^3/uL Mean Platelet Volume 9.3 9.0-12.2 fL Immature Granulocyte % (Auto) 0 % Neutrophils (%) (Auto) 45 42-75 % Lymphocytes (%) (Auto) 42 12-44 % Monocytes (%) (Auto) 5 0-12 % Eosinophils (%) (Auto) 7 0-10 % Basophils (%) (Auto) 1 0-10 % Neutrophils # (Auto) 3.1 1.8-7.8 10^3/uL Lymphocytes # (Auto) 2.9 1.0-4.0 10^3/uL Monocytes # (Auto) 0.3 0.0-1.0 10^3/uL Eosinophils # (Auto) 0.5 H 0.0-0.3 10^3/uL Basophils # (Auto) 0.1 0.0-0.1 10^3/uL Immature Granulocyte # (Auto) 0.0 0.0-0.1 10^3/uL Sodium Level 138 135-145 MMOL/L Potassium Level 3.8 3.6-5.0 MMOL/L Chloride Level 102 98-107 MMOL/L Carbon Dioxide Level 23 21-32 MMOL/L Anion Gap 13 5-14 MMOL/L Blood Urea Nitrogen 15 7-18 MG/DL Creatinine 1.01 0.60-1.30 MG/DL Estimat Glomerular Filtration Rate > 60 BUN/Creatinine Ratio 15 Glucose Level 388 H 70-105 MG/DL Calcium Level 9.1 8.5-10.1 MG/DL Corrected Calcium 8.9 8.5-10.1 MG/DL Total Bilirubin 0.5 0.1-1.0 MG/DL Aspartate Amino Transf (AST/SGOT) 24 5-34 U/L Alanine Aminotransferase (ALT/SGPT) 30 0-55 U/L Alkaline Phosphatase 124 40-136 U/L Total Protein 7.3 6.4-8.2 GM/DL Albumin 4.3 3.2-4.5 GM/DL Lipase 14 8-78 U/L Beta-Hydroxybutyrate (Chem panel) 0.33 H 0.00-0.27 MMOL/L Glucometer 328 H 70-110 MG/DL Arterial Blood pH 7.46 H 7.37-7.43 Urine Color YELLOW Urine Clarity CLEAR Urine pH 7.0 5-9 Urine Specific [place] 1.020 1.016-1.022 Urine Protein NEGATIVE NEGATIVE Urine Glucose (UA) 3+ H NEGATIVE Urine Ketones 1+ H NEGATIVE Urine Nitrite NEGATIVE NEGATIVE Urine Bilirubin NEGATIVE NEGATIVE Urine Urobilinogen 0.2 < = 1.0 MG/DL Urine Leukocyte Esterase NEGATIVE NEGATIVE Urine RBC (Auto) NEGATIVE NEGATIVE Urine RBC NONE /HPF Urine WBC NONE /HPF Urine Squamous Epithelial Cells RARE /HPF Urine Crystals NONE /LPF Urine Bacteria NEGATIVE /HPF Urine Casts NONE /LPF Urine Mucus NEGATIVE /LPF Urine Culture Indicated NO My Orders Orders - JG VILLAVICENCIO MD Ondansetron Injection (Zofran Injectio (08/22/20 08:34) Ed Iv/Invasive Line Start (08/22/20 08:42) Cbc With Automated Diff (08/22/20 08:42) Comprehensive Metabolic Panel (08/22/20 08:42) Lipase (08/22/20 08:42) Ua Culture If Indicated (08/22/20 08:42) Abg Ph (08/22/20 08:42) Ondansetron Injection (Zofran Injectio (08/22/20 08:45) Ns Iv 1000 Ml (Sodium Chloride 0.9%) (08/22/20 08:45) Beta Hydroxybutyrate (08/22/20 08:42) Accucheck Stat ONCE (08/22/20 08:44) Ns Iv 1000 Ml (Sodium Chloride 0.9%) (08/22/20 08:38) Promethazine Injection (Phenergan Injec (08/22/20 09:15) Haloperidol Injection (Haldol Injectio (08/22/20 11:45) Medications Given in ED Current Medications Medications Dose Ordered Sig/Fer Route Start Time Stop Time Status Last Admin Dose Admin Haloperidol Lactate 5 mg ONCE ONCE IM 08/22/20 11:45 08/22/20 11:46 DC 08/22/20 12:16 5 MG Ondansetron HCl 8 mg ONCE ONCE IVP 08/22/20 08:45 08/22/20 08:46 DC 08/22/20 08:35 8 MG Promethazine HCl 25 mg ONCE ONCE IVP 08/22/20 09:15 08/22/20 09:16 DC 08/22/20 09:17 25 MG Vital Signs/I&O 08/22/20 08:36 Temp 34.8 Pulse 83 Resp 20 B/P (MAP) 148/85 (106) Pulse Ox 99 O2 Delivery Room Air Capillary Refill : Progress Note : Time: 10:25 Progress Note Rechecked, feeling better, very mildly nauseated. Complains of feeling "cold". Patient has completed Phenergan, Zofran and 2 L of normal saline. I have reviewed his labs he is slightly hyperglycemic however he does not have a large anion gap and his pH is normal. Patient's beta hydroxybutyrate is 0.33 which is slightly above measured baseline. At this point I do not believe that the patient is in diabetic ketoacidosis. Likely he developed some type of gastritis most likely related to his longstanding, uncontrolled diabetes. Patient is counseled on oral replacement therapy. He verbalizes understanding. 1132 Patient back to vomiting again; will give IM shot of haldol. 1250 Patient resting comfortably has no further episodes of dry heaves. Has been treated with his Haldol, 25 of Phenergan, 8 of Zofran and 2-1/2 L of fluid. Patient's labs are unremarkable. Patient will be discharged home with a Zofran prescription sent to [facility]. He will be given strict return precautions. He verbalized understanding. All questions are sought and answered. Departure Impression Primary Impression: Gastritis Qualified Codes: K29.00 - Acute gastritis without bleeding Additional Impressions: Type 1 diabetes Qualified Codes: E10.9 - Type 1 diabetes mellitus without complications Hyperglycemia due to diabetes mellitus Disposition: HOME, SELF-CARE Condition: Stable Departure-Patient Inst. Decision time for Depature: 10:28 Referrals: [facility] [place] Primary Care Physician Patient Instructions: Dehydration, Adult (DC) Add. Discharge Instructions: Try not to smoke any marijuana within the next few days as I believe this will make your symptoms worse. Use the Zofran medication for nausea every 8 hours as needed. Drink lots of fluids to stay well-hydrated. Please come back to the emergency room if you have any return of symptoms, worsening symptoms or any other emergent concerning complaints. Scripts Ondansetron (Ondansetron Odt) 8 Mg Tab.rapdis 8 MG PO TID PRN for NAUSEA-1ST LINE, #15 TAB Prov: JG VILLAVICENCIO MD 08/22/20 JG VILLAVICENCIO MD Aug 22, 2020 08:46
[2020-08-22 08:51] LABS: BASOPHILS # (AUTO) 0.1 10^3/uL (0.0-0.1); BASOPHILS % (AUTO) 1 % (0-10); EOSINOPHILS # (AUTO) 0.5 10^3/uL (0.0-0.3); EOSINOPHILS % (AUTO) 7 % (0-10); HEMATOCRIT 43 % (40-54); HEMOGLOBIN 14.5 g/dL (13.3-17.7); LYMPHOCYTES # (AUTO) 2.9 10^3/uL (1.0-4.0); LYMPHOCYTES % (AUTO) 42 % (12-44); MEAN CORPUSCULAR HEMOGLOBIN 29 pg (25-34); MEAN CORPUSCULAR HGB CONC 34 g/dL (32-36); MEAN CORPUSCULAR VOLUME 87 fL (80-99); MEAN PLATELET VOLUME 9.3 fL (9.0-12.2); MONOCYTES # (AUTO) 0.3 10^3/uL (0.0-1.0); MONOCYTES % (AUTO) 5 % (0-12); NEUTROPHILS # (AUTO) 3.1 10^3/uL (1.8-7.8); NEUTROPHILS % (AUTO) 45 % (42-75); PLATELET COUNT 268 10^3/uL (130-400); WHITE BLOOD COUNT 6.9 10^3/uL (4.3-11.0)
[2020-08-22 08:57] LABS: ALBUMIN 4.3 GM/DL (3.2-4.5)
[2020-08-22 08:58] LABS: CHLORIDE 102 MMOL/L (98-107); POTASSIUM 3.8 MMOL/L (3.6-5.0); SODIUM 138 MMOL/L (135-145)
[2020-08-22 08:59] LABS: CALCIUM 9.1 MG/DL (8.5-10.1)
[2020-08-22 09:00] LABS: GLUCOSE 388 MG/DL (70-105); TOTAL PROTEIN 7.3 GM/DL (6.4-8.2)
[2020-08-22 09:01] LABS: CARBON DIOXIDE 23 MMOL/L (21-32)
[2020-08-22 09:02] LABS: BILIRUBIN,TOTAL 0.5 MG/DL (0.1-1.0)
[2020-08-22 09:03] LABS: ALKALINE PHOSPHATASE 124 U/L (40-136)
[2020-08-22 09:04] LABS: CREATININE SERUM 1.01 MG/DL (0.60-1.30); GFR ESTIMATED > 60
[2020-08-22 09:05] LABS: BUN/CREATININE RATIO 15
[2020-08-22 09:07] LABS: ALANINE AMINOTRANSFERASE 30 U/L (0-55); LIPASE 14 U/L (8-78)
[2020-08-22] MEDS ORDERED: PROMETHAZINE INJ 25 MG/ML (PHENERGAN) AMP IVP ONE (09:15)
[2020-08-22 11:13] LABS: BACTERIA,URINE NEGATIVE /HPF; BILIRUBIN,URINE NEGATIVE (NEGATIVE); CLARITY,URINE CLEAR; COLOR,URINE YELLOW; GLUCOSE, URINE (UA) 3+ (NEGATIVE); KETONES,URINE 1+ (NEGATIVE); LEUKOCYTE ESTERASE ,URINE NEGATIVE (NEGATIVE); NITRITE,URINE NEGATIVE (NEGATIVE); PROTEIN,URINE NEGATIVE (NEGATIVE); SQUAMOUS EPITHELIAL CELL,UR RARE /HPF
[2020-08-22] MEDS ORDERED: HALOPERIDOL 5 MG/ML (HALDOL) VIAL IM ONE (11:45)
[2020-08-22] MEDS ORDERED: ONDA8TAB13 PO (13:05)
[2020-08-22 13:33] VITALS: BP 138/98
[2020-08-22] MEDS ORDERED: FAMO-119 PO (22:42)
== END 2020-08-22 13:33 | disposition home or self-care (01) ==
LOC: EDUNIT# 08:28 → ER 08:30
DX: K29.70 Gastritis, unspecified, without bleeding (principal); E10.65 Type 1 diabetes mellitus with hyperglycemia; G89.29 Other chronic pain; M54.9 Dorsalgia, unspecified; I10 Essential (primary) hypertension; Z88.5 Allergy status to narcotic agent; Z87.891 Personal history of nicotine dependence; Z82.49 Family history of ischemic heart disease and other diseases of the circulatory system; Z83.3 Family history of diabetes mellitus; Z79.891 Long term (current) use of opiate analgesic
CPT/HCPCS: 36415; 80053; 81000; 82010; 82800; 82962; 83690; 85025; 93005

== ENCOUNTER 2020-08-22 20:53 | Emergency (ER) | payer OTHER ==
[~2020-08-22] VITALS: Ht 177.8 cm; Wt 90.7 kg
--- NOTE | 2020-08-22 21:18 | ED Abdominal Pain ---
General Stated Complaint: CHEST PAIN Source of Information: Patient Exam Limitations: No Limitations History of Present Illness Date Seen by Provider: Aug 22, 2020 Time Seen by Provider: 21:12 Initial Comments This is a 35-year-old male who was in ER with complaints of burning pain in his epigastric region since this morning. States the pain started today, took 2 Tylenol which did not improve any of his symptoms. States pain is similar to prior gallbladder attack. He does report history of acid reflux, but does not currently take any medications for GERD. Was seen in ER earlier today and had extensive workup and diagnosed with gastritis. He was given Rx for Zofran, but states pain is causing him to continue to vomit. Denies fever, chills, cough, shortness of breath, chest pain, difficulty urinating. Allergies and Home Medications Allergies Coded Allergies: tramadol (Verified Adverse Reaction, Mild, N/V, 12/21/14) Home Medications Famotidine 20 Mg Tablet, 20 MG PO BID Prescribed by: MARIA LUZ MARY on 08/22/20 4532 Gabapentin 800 Mg Tablet, 800 MG PO QID, (Reported) Insulin Aspart 300 Units/3 Ml Solution, 5 UNITS SQ TIDWM, (Reported) Insulin Detemir 100 Unit/1 Ml Insuln.pen, 45 UNIT SQ HS, (Reported) Ondansetron 8 Mg Tab.rapdis, 8 MG PO Q6H Prescribed by: CARLOS MCLEAN on 02/25/20 1037 Ondansetron 8 Mg Tab.rapdis, 8 MG PO TID PRN for NAUSEA-1ST LINE Prescribed by: JG VILLAVICENCIO on 08/22/20 1305 Oxycodone Hcl 5 Mg Tablet, 10 MG PO Q4H PRN for PAIN-SEVERE (8-10) Prescribed by: CARLOS MCLEAN on 02/25/20 1038 Patient Home Medication List Home Medication List Reviewed: Yes Review of Systems Review of Systems Constitutional: no symptoms reported EENTM: No Symptoms Reported Respiratory: No Symptoms Reported Cardiovascular: See HPI Gastrointestinal: See HPI Genitourinary: No Symptoms Reported Musculoskeletal: no symptoms reported Skin: no symptoms reported Psychiatric/Neurological: No Symptoms Reported Endocrine: No Symptoms Reported Hematologic/Lymphatic: No Symptoms Reported Past Jvoljnb-Cpduov-Hbdxmd Hx Patient Social History Drug of Choice: POT Type Used: Smokeless Tobacco Former Smoker, Quit: Aug 14, 2017 2nd Hand Smoke Exposure: No Recent Hopitalizations: Yes (silvia) Immunizations Up To Date Tetanus Booster (TDap): Unknown Date of Pneumonia Vaccine: Aug 27, 2011 Date of Influenza Vaccine: Mar 04, 2019 Seasonal Allergies Seasonal Allergies: No Past Medical History Surgeries: Yes Gallbladder Respiratory: Yes (copd dx by patient) COPD Currently Using CPAP: No Currently Using BIPAP: No Cardiac: Yes Hypertension Neurological: Yes Neuropathy Reproductive Disorders: No Sexually Transmitted Disease: No HIV/AIDS: No Genitourinary: No Kidney Infection Gastrointestinal: Yes (ELEVATED LIVER ENZYMES, Hep A) Liver Disease/Jaundice Musculoskeletal: Yes Arthritis, Scoliosis, Chronic Back Pain Endocrine: Yes (dm) Diabetes, Insulin dep HEENT: No Hearing Impairment: Denies Cancer: No Psychosocial: Yes (POLYSUBSTANCE ABUSE) Depression Integumentary: No Blood Disorders: No Adverse Reaction/Blood Tranf: No Family Medical History Alcoholism 19 FATHER G8 BROTHER Congenital heart disease 19 FATHER Family history: Cardiovascular disease 19 FATHER, Onset:40's - 50 Family history: Diabetes mellitus 19 MOTHER Family history: Hypertension 19 FATHER Heart disease 19 FATHER History of - respiratory disease 19 FATHER History of drug abuse 19 MOTHER Hypercholesterolemia 19 FATHER Myocardial infarction 19 FATHER Seizure disorder 19 FATHER No Family History of: Abdominal aortic aneurysm [place]'s disease Cancer Congestive heart failure Cystic fibrosis Dementia Dysphagia Family history: Allergy Family history: Alzheimer's disease Family history: Arthritis Family history: Asthma Family history: Breast disease Family history: Coronary thrombosis Family history: Gastrointestinal disease Family history: Glaucoma Family history: Osteoporosis Family history: Thyroid disorder Headache Hearing loss Hereditary disease History of - anemia History of - disorder Human immunodeficiency virus (HIV) seropositivity Infertile Kidney disease Malignant neoplasm of lung Parkinson's disease Prostate cancer Psychotic disorder Stroke Tuberculosis Visual impairment No Pertinent Family Hx Physical Exam Vital Signs Vital Signs - First Documented 08/22/20 20:55 Temp 36.7 Pulse 118 Resp 20 B/P (MAP) 131/78 (95) Pulse Ox 100 O2 Delivery Room Air Capillary Refill : Height/Weight/BMI Height: 5'10.00" Weight: 240lbs. 0oz. [id number]; 25.00 BMI Method:Stated General Appearance: WD/WN, no apparent distress HEENT: PERRL/EOMI, normal ENT inspection Neck: full range of motion, normal inspection Respiratory: lungs clear, normal breath sounds Cardiovascular: regular rate, rhythm, no murmur Extremities: normal range of motion, normal inspection Neurologic/Psychiatric: no motor/sensory deficits, alert, normal mood/affect, oriented x 3 Skin: normal color, warm/dry Progress/Results/Core Measures Results/Orders Lab Results Laboratory Tests Test 08/22/20 21:19 Range/Units White Blood Count 12.0 H 4.3-11.0 10^3/uL Red Blood Count 5.10 4.30-5.52 10^6/uL Hemoglobin 14.9 13.3-17.7 g/dL Hematocrit 45 40-54 % Mean Corpuscular Volume 88 80-99 fL Mean Corpuscular Hemoglobin 29 25-34 pg Mean Corpuscular Hemoglobin Concent 33 32-36 g/dL Red Cell Distribution Width 12.0 10.0-14.5 % Platelet Count 344 130-400 10^3/uL Mean Platelet Volume 9.8 9.0-12.2 fL Immature Granulocyte % (Auto) 0 % Neutrophils (%) (Auto) 69 42-75 % Lymphocytes (%) (Auto) 27 12-44 % Monocytes (%) (Auto) 2 0-12 % Eosinophils (%) (Auto) 0 0-10 % Basophils (%) (Auto) 1 0-10 % Neutrophils # (Auto) 8.3 H 1.8-7.8 10^3/uL Lymphocytes # (Auto) 3.3 1.0-4.0 10^3/uL Monocytes # (Auto) 0.3 0.0-1.0 10^3/uL Eosinophils # (Auto) 0.0 0.0-0.3 10^3/uL Basophils # (Auto) 0.1 0.0-0.1 10^3/uL Immature Granulocyte # (Auto) 0.1 0.0-0.1 10^3/uL Sodium Level 137 135-145 MMOL/L Potassium Level 4.1 3.6-5.0 MMOL/L Chloride Level 101 98-107 MMOL/L Carbon Dioxide Level 17 L 21-32 MMOL/L Anion Gap 19 H 5-14 MMOL/L Blood Urea Nitrogen 16 7-18 MG/DL Creatinine 1.18 0.60-1.30 MG/DL Estimat Glomerular Filtration Rate > 60 BUN/Creatinine Ratio 14 Glucose Level 402 *H 70-105 MG/DL Calcium Level 8.6 8.5-10.1 MG/DL Corrected Calcium 8.5 8.5-10.1 MG/DL Total Bilirubin 0.8 0.1-1.0 MG/DL Aspartate Amino Transf (AST/SGOT) 24 5-34 U/L Alanine Aminotransferase (ALT/SGPT) 27 0-55 U/L Alkaline Phosphatase 97 40-136 U/L Total Protein 7.0 6.4-8.2 GM/DL Albumin 4.1 3.2-4.5 GM/DL Lipase 7 L 8-78 U/L My Orders Orders - MARIA LUZ MARY APRN Lidocaine 2% Viscous 15 Ml (Xylocaine Vi (08/22/20 21:30) Antacid Suspension (Mylanta Suspension (08/22/20 21:30) Cbc With Automated Diff (08/22/20 21:16) Comprehensive Metabolic Panel (08/22/20 21:16) Lipase (08/22/20 21:16) Insulin Aspart (Novolog) (Novolog (Charg (08/22/20 22:30) Medications Given in ED Vital Signs/I&O 08/22/20 08/22/20 08/22/20 20:55 20:55 22:52 Temp 36.7 36.7 Pulse 118 91 Resp 20 17 B/P (MAP) 131/78 (95) 128/82 (95) Pulse Ox 100 98 O2 Delivery Room Air Room Air Room Air Progress Progress Note : Progress Note Pt. examined and in no acute distress. Reports burning sensation in his epigastric region consistent with his recent diagnosis of gastritis. He states pain is similar to previous gallbladder attack. States he has IDDM and has not taken any of his Novolog today since he has been unable to eat d/t the pain. EKG is unremarkable. Will order basic labs and lipase. GI cocktail ordered. Sleeping quietly when RN went to administer GI cocktail. Labs reviewed and are unremarkable, other than elevated blood glucose. Likely d/t his lack of insulin today. States he normally takes 4 units of Novolog when BG in 400's. Orders placed to given Novolog 4 units subcut. He did take his long acting insulin apx. 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 Reports feeling much improved after GI cocktail. Will give Rx for Pepcid and have him follow up with PCP for persistent symptoms. Reviewed discharge POC and he is agreeable with plan. Initial ECG Impression Date: Aug 22, 2020 Initial ECG Rhythm: S.Tach Initial ECG Impression: Normal Departure Impression Primary Impression: Gastritis Additional Impression: GERD (gastroesophageal reflux disease) Disposition: 01 HOME, SELF-CARE Condition: Improved Departure-Patient Inst. Decision time for Depature: 22:43 Referrals: [facility] (PCP/Family) Primary Care Physician Patient Instructions: Acid Reflux, Adult and Adolescent ED, Gastritis (DC) Add. Discharge Instructions: Plan: 1. Discharge home. 2. Take Pepcid twice a day as directed. 3. Avoid food that aggravate your symptoms. 4. Follow up with your doctor if your symptoms persist. 5. Return for any new or concerning symptoms. Scripts Famotidine (Pepcid) 20 Mg Tablet 20 MG PO BID, #30 TAB 0 Refills Prov: MARIA LUZ MARY APRN 08/22/20 MARIA LUZ MARY WRAPAROUND FACILITATOR Aug 22, 2020 21:17
[2020-08-22 21:27] LABS: BASOPHILS # (AUTO) 0.1 10^3/uL (0.0-0.1); BASOPHILS % (AUTO) 1 % (0-10); EOSINOPHILS % (AUTO) 0 % (0-10); HEMATOCRIT 45 % (40-54); HEMOGLOBIN 14.9 g/dL (13.3-17.7); LYMPHOCYTES # (AUTO) 3.3 10^3/uL (1.0-4.0); LYMPHOCYTES % (AUTO) 27 % (12-44); MEAN CORPUSCULAR HEMOGLOBIN 29 pg (25-34); MEAN CORPUSCULAR HGB CONC 33 g/dL (32-36); MEAN CORPUSCULAR VOLUME 88 fL (80-99); MEAN PLATELET VOLUME 9.8 fL (9.0-12.2); MONOCYTES # (AUTO) 0.3 10^3/uL (0.0-1.0); MONOCYTES % (AUTO) 2 % (0-12); NEUTROPHILS # (AUTO) 8.3 10^3/uL (1.8-7.8); NEUTROPHILS % (AUTO) 69 % (42-75); PLATELET COUNT 344 10^3/uL (130-400)
[2020-08-22] MEDS ORDERED: LIDOCAINE 2% VISCOUS 15 ML UDC PO ONE (21:30)
[2020-08-22] MEDS ORDERED: ANTACID SUSP 30 ML UDC (MYLANTA) PO ONE (21:30)
[2020-08-22 21:36] LABS: ALBUMIN 4.1 GM/DL (3.2-4.5); CHLORIDE 101 MMOL/L (98-107); POTASSIUM 4.1 MMOL/L (3.6-5.0); SODIUM 137 MMOL/L (135-145)
[2020-08-22 21:37] LABS: CALCIUM 8.6 MG/DL (8.5-10.1)
[2020-08-22 21:40] LABS: BILIRUBIN,TOTAL 0.8 MG/DL (0.1-1.0); CARBON DIOXIDE 17 MMOL/L (21-32)
[2020-08-22 21:42] LABS: ALKALINE PHOSPHATASE 97 U/L (40-136); CREATININE SERUM 1.18 MG/DL (0.60-1.30); GFR ESTIMATED > 60
[2020-08-22 21:43] LABS: BUN/CREATININE RATIO 14; GLUCOSE 402 MG/DL (70-105)
[2020-08-22 21:45] LABS: ALANINE AMINOTRANSFERASE 27 U/L (0-55)
[2020-08-22 21:46] LABS: LIPASE 7 U/L (8-78)
[2020-08-22] MEDS ORDERED: inSUlin ASPART (NovoLOG) 1 UNIT/0.01 ML (CHARGE PER UNIT) SC ONE (22:30)
[2020-08-22] MEDS ORDERED: FAMO-119 PO (22:42)
[2020-08-22 22:52] VITALS: BP 128/82
== END 2020-08-22 22:52 | disposition home or self-care (01) ==
LOC: EDUNIT# 20:53 → ER 20:55
DX: K29.70 Gastritis, unspecified, without bleeding (principal); K21.9 Gastro-esophageal reflux disease without esophagitis; E11.40 Type 2 diabetes mellitus with diabetic neuropathy, unspecified; I10 Essential (primary) hypertension; J44.9 Chronic obstructive pulmonary disease, unspecified; Z87.891 Personal history of nicotine dependence; Z87.448 Personal history of other diseases of urinary system; Z79.4 Long term (current) use of insulin; Z88.5 Allergy status to narcotic agent
CPT/HCPCS: 36415; 80053; 83690; 85025

== ENCOUNTER 2020-08-24 07:21 | Day surgery (SDC) | payer OTHER ==
[~2020-08-24] VITALS: Ht 157.5 cm; Wt 90.8 kg
[2020-08-24] MEDS ORDERED: ONDANSETRON 4 MG/2 ML (SDV) Z0FRAN ONE (07:27)
[2020-08-24] MEDS ORDERED: FAMOTIDINE 20MG/2ML IV (PEPCID) ONE (07:27)
[2020-08-24] MEDS ORDERED: PROMETHAZINE INJ 25 MG/ML (PHENERGAN) AMP ONE (07:42)
[2020-08-24] MEDS ORDERED: ONDANSETRON 4 MG/2 ML (SDV) Z0FRAN IVP ONE (07:45)
[2020-08-24] MEDS ORDERED: FAMOTIDINE 20MG/2ML IV (PEPCID) IVP ONE (07:45)
[2020-08-24] MEDS ORDERED: LACTATED RINGERS 1,000 ML IV ONE (07:45)
[2020-08-24 07:53] LABS: BASOPHILS # (AUTO) 0.1 10^3/uL (0.0-0.1); BASOPHILS % (AUTO) 1 % (0-10); EOSINOPHILS # (AUTO) 0.3 10^3/uL (0.0-0.3); EOSINOPHILS % (AUTO) 4 % (0-10); HEMATOCRIT 41 % (40-54); HEMOGLOBIN 14.1 g/dL (13.3-17.7); LYMPHOCYTES % (AUTO) 42 % (12-44); MEAN CORPUSCULAR HEMOGLOBIN 29 pg (25-34); MEAN CORPUSCULAR HGB CONC 34 g/dL (32-36); MEAN CORPUSCULAR VOLUME 86 fL (80-99); MEAN PLATELET VOLUME 9.8 fL (9.0-12.2); MONOCYTES # (AUTO) 0.4 10^3/uL (0.0-1.0); MONOCYTES % (AUTO) 5 % (0-12); NEUTROPHILS # (AUTO) 3.4 10^3/uL (1.8-7.8); NEUTROPHILS % (AUTO) 48 % (42-75); PLATELET COUNT 291 10^3/uL (130-400); WHITE BLOOD COUNT 7.2 10^3/uL (4.3-11.0)
[2020-08-24] MEDS ORDERED: PROMETHAZINE INJ 25 MG/ML (PHENERGAN) AMP IVP ONE (08:00)
--- NOTE | 2020-08-24 08:11 | ED Abdominal Pain ---
General Chief Complaint: Abdominal/GI Problems Stated Complaint: GERD Nursing Triage Note: PT AMB TO ROOM 5 PT CO OF VOMITING SINCE ABOUT 0500 THIS AM. PT STATES WAS FOR SAME THING TWICE ON SUNDAY, YESTERDAY BETTER AND VOMITING AGAIN THIS AM. PT STATES SMOKED POT LAST ON SUNDAY. PT ALSO STICKING FINGER DOWN THROAT, STATES MAKES STOMACH FEEL BETTER. PT ENC TO STOP DOING THIS, MAKING HIM RETCH HARDER Sepsis Screen: No Definite Risk Source of Information: Patient Exam Limitations: No Limitations History of Present Illness Date Seen by Provider: Aug 24, 2020 Time Seen by Provider: 07:25 Initial Comments This 35-year-old young man presents to the emergency room with persistent nausea, vomiting, and epigastric and left upper quadrant pain. Symptoms started on August 22 and he had to ER visit that day. He was diagnosed with gastritis. He denies any alcohol use but admits to using marijuana with last use on Sunday. He is actively heaving at the time of my exam. He denies any fevers or diarrhea. He states blood sugars have been "not too bad". He has not taken any insulin yet this morning. Allergies and Home Medications Allergies Coded Allergies: tramadol (Verified Adverse Reaction, Mild, N/V, 12/21/14) Home Medications Famotidine 20 Mg Tablet, 20 MG PO BID Prescribed by: MARIA LUZ MARY on 08/22/202 Gabapentin 800 Mg Tablet, 800 MG PO QID, (Reported) Insulin Aspart 300 Units/3 Ml Solution, 5 UNITS SQ TIDWM, (Reported) Insulin Detemir 100 Unit/1 Ml Insuln.pen, 45 UNIT SQ HS, (Reported) Ondansetron 8 Mg Tab.rapdis, 8 MG PO Q6H Prescribed by: CARLOS MCLEAN on 02/25/20 1037 Ondansetron 8 Mg Tab.rapdis, 8 MG PO TID PRN for NAUSEA-1ST LINE Prescribed by: JG VILLAVICENCIO on 08/22/20 1305 Oxycodone Hcl 5 Mg Tablet, 10 MG PO Q4H PRN for PAIN-SEVERE (8-10) Prescribed by: CARLOS MCLEAN on 02/25/20 1038 Patient Home Medication List Home Medication List Reviewed: Yes Review of Systems Review of Systems Constitutional: no symptoms reported EENTM: No Symptoms Reported Respiratory: No Symptoms Reported Cardiovascular: No Symptoms Reported Gastrointestinal: See HPI Genitourinary: No Symptoms Reported Musculoskeletal: no symptoms reported Skin: no symptoms reported Psychiatric/Neurological: No Symptoms Reported Endocrine: See HPI Hematologic/Lymphatic: No Symptoms Reported Past Xvrldgo-Otempp-Klaomu Hx Past Med/Social Hx: Reviewed Nursing Past Med/Soc Hx Patient Social History Alcohol Use: Denies Use Drug of Choice: POT Type Used: Smokeless Tobacco Former Smoker, Quit: Aug 14, 2017 2nd Hand Smoke Exposure: No Recent Infectious Disease Expo: No Recent Hopitalizations: No Immunizations Up To Date Tetanus Booster (TDap): Unknown Date of Pneumonia Vaccine: Aug 27, 2011 Date of Influenza Vaccine: Mar 04, 2019 Seasonal Allergies Seasonal Allergies: No Past Medical History Surgeries: Yes Gallbladder Respiratory: Yes (copd dx by patient) COPD Currently Using CPAP: No Currently Using BIPAP: No Cardiac: Yes Hypertension Neurological: Yes Neuropathy Reproductive Disorders: No Sexually Transmitted Disease: No HIV/AIDS: No Genitourinary: No Kidney Infection Gastrointestinal: Yes (ELEVATED LIVER ENZYMES, Hep A) Liver Disease/Jaundice Musculoskeletal: Yes Arthritis, Scoliosis, Chronic Back Pain Endocrine: Yes (Type I) Diabetes, Insulin dep HEENT: No Hearing Impairment: Denies Cancer: No Psychosocial: Yes (POLYSUBSTANCE ABUSE) Depression Integumentary: No Blood Disorders: No Adverse Reaction/Blood Tranf: No Family Medical History Reviewed Nursing Family Hx Alcoholism 19 FATHER G8 BROTHER Congenital heart disease 19 FATHER Family history: Cardiovascular disease 19 FATHER, Onset:40's - 50 Family history: Diabetes mellitus 19 MOTHER Family history: Hypertension 19 FATHER Heart disease 19 FATHER History of - respiratory disease 19 FATHER History of drug abuse 19 MOTHER Hypercholesterolemia 19 FATHER Myocardial infarction 19 FATHER Seizure disorder 19 FATHER No Family History of: Abdominal aortic aneurysm [place]'s disease Cancer Congestive heart failure Cystic fibrosis Dementia Dysphagia Family history: Allergy Family history: Alzheimer's disease Family history: Arthritis Family history: Asthma Family history: Breast disease Family history: Coronary thrombosis Family history: Gastrointestinal disease Family history: Glaucoma Family history: Osteoporosis Family history: Thyroid disorder Headache Hearing loss Hereditary disease History of - anemia History of - disorder Human immunodeficiency virus (HIV) seropositivity Infertile Kidney disease Malignant neoplasm of lung Parkinson's disease Prostate cancer Psychotic disorder Stroke Tuberculosis Visual impairment No Pertinent Family Hx Physical Exam Vital Signs Vital Signs - First Documented 08/24/20 07:26 Temp 35.6 Pulse 66 Resp 20 B/P (MAP) 150/89 (109) Pulse Ox 100 Capillary Refill : Less Than 3 Seconds Height/Weight/BMI Height: 5'10.00" Weight: 240lbs. 0oz. 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, no motor/sensory deficits, alert, normal mood/affect, oriented x 3 Skin: normal color, warm/dry Progress/Results/Core Measures Results/Orders Lab Results Laboratory Tests Test 08/24/20 07:34 08/24/20 07:38 08/24/20 08:55 Range/Units White Blood Count 7.2 4.3-11.0 10^3/uL Red Blood Count 4.81 4.30-5.52 10^6/uL Hemoglobin 14.1 13.3-17.7 g/dL Hematocrit 41 40-54 % Mean Corpuscular Volume 86 80-99 fL Mean Corpuscular Hemoglobin 29 25-34 pg Mean Corpuscular Hemoglobin Concent 34 32-36 g/dL Red Cell Distribution Width 12.3 10.0-14.5 % Platelet Count 291 130-400 10^3/uL Mean Platelet Volume 9.8 9.0-12.2 fL Immature Granulocyte % (Auto) 0 % Neutrophils (%) (Auto) 48 42-75 % Lymphocytes (%) (Auto) 42 12-44 % Monocytes (%) (Auto) 5 0-12 % Eosinophils (%) (Auto) 4 0-10 % Basophils (%) (Auto) 1 0-10 % Neutrophils # (Auto) 3.4 1.8-7.8 10^3/uL Lymphocytes # (Auto) 3.0 1.0-4.0 10^3/uL Monocytes # (Auto) 0.4 0.0-1.0 10^3/uL Eosinophils # (Auto) 0.3 0.0-0.3 10^3/uL Basophils # (Auto) 0.1 0.0-0.1 10^3/uL Immature Granulocyte # (Auto) 0.0 0.0-0.1 10^3/uL Sodium Level 135 135-145 MMOL/L Potassium Level 3.6 3.6-5.0 MMOL/L Chloride Level 99 98-107 MMOL/L Carbon Dioxide Level 21 21-32 MMOL/L Anion Gap 15 H 5-14 MMOL/L Blood Urea Nitrogen 16 7-18 MG/DL Creatinine 1.22 0.60-1.30 MG/DL Estimat Glomerular Filtration Rate > 60 BUN/Creatinine Ratio 13 Glucose Level 406 *H 70-105 MG/DL Calcium Level 9.1 8.5-10.1 MG/DL Corrected Calcium 8.9 8.5-10.1 MG/DL Total Bilirubin 0.4 0.1-1.0 MG/DL Aspartate Amino Transf (AST/SGOT) 27 5-34 U/L Alanine Aminotransferase (ALT/SGPT) 28 0-55 U/L Alkaline Phosphatase 115 40-136 U/L Total Protein 7.4 6.4-8.2 GM/DL Albumin 4.3 3.2-4.5 GM/DL Lipase 20 8-78 U/L Glucometer 383 H 70-110 MG/DL Urine Color YELLOW Urine Clarity CLEAR Urine pH 6.0 5-9 Urine Specific [place] 1.020 1.016-1.022 Urine Protein NEGATIVE NEGATIVE Urine Glucose (UA) 3+ H NEGATIVE Urine Ketones 2+ H NEGATIVE Urine Nitrite NEGATIVE NEGATIVE Urine Bilirubin NEGATIVE NEGATIVE Urine Urobilinogen 0.2 < = 1.0 MG/DL Urine Leukocyte Esterase NEGATIVE NEGATIVE Urine RBC (Auto) NEGATIVE NEGATIVE Urine RBC NONE /HPF Urine WBC NONE /HPF Urine Squamous Epithelial Cells NONE /HPF Urine Crystals NONE /LPF Urine Bacteria NEGATIVE /HPF Urine Casts NONE /LPF Urine Mucus NEGATIVE /LPF Urine Culture Indicated NO Urine Opiates Screen NEGATIVE NEGATIVE Urine Oxycodone Screen NEGATIVE NEGATIVE Urine Methadone Screen NEGATIVE NEGATIVE Urine Propoxyphene Screen NEGATIVE NEGATIVE Urine Barbiturates Screen NEGATIVE NEGATIVE Ur Tricyclic Antidepressants Screen NEGATIVE NEGATIVE Urine Phencyclidine Screen NEGATIVE NEGATIVE Urine Amphetamines Screen NEGATIVE NEGATIVE Urine Methamphetamines Screen NEGATIVE NEGATIVE Urine Benzodiazepines Screen NEGATIVE NEGATIVE Urine Cocaine Screen NEGATIVE NEGATIVE Urine Cannabinoids Screen POSITIVE H NEGATIVE My Orders Orders - GRIFFIN GUTIERREZ MD Ondansetron Injection (Zofran Injectio (08/24/20 07:27) Famotidine Injection (Pepcid Injection) (08/24/20 07:27) Comprehensive Metabolic Panel (08/24/20 07:34) Lipase (08/24/20 07:34) Ua Culture If Indicated (08/24/20 07:34) Ed Iv/Invasive Line Start (08/24/20 07:34) Cbc With Automated Diff (08/24/20 07:34) Ondansetron Injection (Zofran Injectio (08/24/20 07:45) Famotidine Injection (Pepcid Injection) (08/24/20 07:45) Lactated Ringers (Lr 1000 Ml Iv Solution (08/24/20 07:45) Accucheck Stat ONCE (08/24/20 07:36) Drug Screen Stat (Urine) (08/24/20 07:37) Promethazine Injection (Phenergan Injec (08/24/20 08:00) Promethazine Injection (Phenergan Injec (08/24/20 07:42) Abdomen, Flat & Upright/Decub (08/24/20 08:22) Medications Given in ED Current Medications Medications Dose Ordered Sig/Fer Route Start Time Stop Time Status Last Admin Dose Admin Famotidine 20 mg STK-MED ONCE .ROUTE 08/24/20 07:27 08/24/20 07:34 DC 08/24/20 07:36 20 MG Lactated Ringer's 1,000 ml @ 0 mls/hr Q0M ONCE IV 08/24/20 07:45 08/24/20 07:46 DC 08/24/20 07:43 1,000 MLS/HR Ondansetron HCl 4 mg STK-MED ONCE .ROUTE 08/24/20 07:27 08/24/20 07:33 DC 08/24/20 07:37 8 MG Promethazine HCl 25 mg ONCE ONCE IVP 08/24/20 08:00 08/24/20 08:01 DC 08/24/20 07:48 25 MG Vital Signs/I&O 08/24/20 07:26 Temp 35.6 Pulse 66 Resp 20 B/P (MAP) 150/89 (109) Pulse Ox 100 Blood Pressure Mean: 109 FSBG Bedside Testing Finger Stick Blood Glucose: 383 Blood Glucose Action Taken: REPORTED TO DR MURO Progress Progress Note #1: Time: 08:10 Progress Note Patient was seen and examined. Zofran and Pepcid were administered. Patient continued to try to gag himself and was heaving. He reports gagging himself because it "makes my stomach feel better". He was asked not to try to induce vomiting. Phenergan was added to his IV fluids. Labs are pending. Progress Note #2: Time: 09:56 Progress Note Patient had refractory nausea and vomiting after the Zofran. Phenergan was administered. He became mildly hypoxic on the Phenergan with oxygen saturation of 88%. Nasal cannula was applied. Patient has now had 3 ER visits within 3 days. He still feels terrible. At this time it is reasonable to admit him for observation for continued supportive care. He has received Pepcid and a liter of LR in the ER. We will also give regular insulin 5 units subcutaneously prior to transferring to the floor to treat his hyperglycemia and type 1 diabetes. Diagnostic Imaging Diagonstic Imaging: Xray Plain Films/CT/US/NM/MRI: abdomen, pelvis Comments KUB and upright viewed by me and report reviewed. See report below: NAME: LYDIA CARUSO [facility] REC#: [id number] PT STATUS: REG ER : 1985 PHYSICIAN: GRIFFIN GUTIERREZ MD ADMIT DATE: 08/24/20/ER Draft Date of Exam:08/24/20 ABDOMEN, FLAT UPRIGHT/DECUB INDICATION: Nausea and vomiting. Abdominal pain. COMPARISON: None FINDINGS: Supine and upright views the abdomen demonstrate nonobstructive small bowel gas pattern. Moderate amount of air and stool are seen scattered throughout the colon. No abnormal air-fluid levels or large collection of free intraperitoneal air is seen. No abnormal extraosseous calcifications or radiopaque foreign bodies are identified. Bony structures are age-appropriate. IMPRESSION: 1. Nonobstructive small bowel gas pattern. 2. Moderate colonic air and stool. Please correlate for constipation. Dictated on workstation # [id number] Dict: 08/24/20 0858 Trans: 08/24/20 0900 IVON [id number] Interpreted by: ALESIA LEIVA MD Departure Communication (Admissions) Time/Spoke to Admitting Phy: 09:45 Dr. Mclean Time/Spoke to Consulting Phy: 09:50 Dr. Ca Impression Primary Impression: Epigastric pain Additional Impressions: Nausea & vomiting Qualified Codes: R11.2 - Nausea with vomiting, unspecified Hyperglycemia due to diabetes mellitus Type 1 diabetes Qualified Codes: E10.69 - Type 1 diabetes mellitus with other specified complication Disposition: 09 ADMITTED INPATIENT Condition: Improved Admissions Decision to Admit Reason: Admit from ER (General) Decision to Admit/Date: Aug 24, 2020 Time/Decision to Admit Time: 09:40 Departure-Patient Inst. Referrals: [facility] (PCP/Family) Primary Care Physician Copy Copies To 1: WESTON DOTY JOSHUA T MD Aug 24, 2020 08:11
[2020-08-24 08:18] LABS: ALANINE AMINOTRANSFERASE 28 U/L (0-55); ALBUMIN 4.3 GM/DL (3.2-4.5); ALKALINE PHOSPHATASE 115 U/L (40-136); BILIRUBIN,TOTAL 0.4 MG/DL (0.1-1.0); BUN/CREATININE RATIO 13; CALCIUM 9.1 MG/DL (8.5-10.1); CARBON DIOXIDE 21 MMOL/L (21-32); CHLORIDE 99 MMOL/L (98-107); CREATININE SERUM 1.22 MG/DL (0.60-1.30); GFR ESTIMATED > 60; LIPASE 20 U/L (8-78); SODIUM 135 MMOL/L (135-145); TOTAL PROTEIN 7.4 GM/DL (6.4-8.2)
[2020-08-24 08:19] LABS: GLUCOSE 406 MG/DL (70-105)
[2020-08-24 08:20] LABS: POTASSIUM 3.6 MMOL/L (3.6-5.0)
--- NOTE | 2020-08-24 09:01 | Diagnostic Imaging Report ---
INDICATION: Nausea and vomiting. Abdominal pain. COMPARISON: None FINDINGS: Supine and upright views the abdomen demonstrate nonobstructive small bowel gas pattern. Moderate amount of air and stool are seen scattered throughout the colon. No abnormal air-fluid levels or large collection of free intraperitoneal air is seen. No abnormal extraosseous calcifications or radiopaque foreign bodies are identified. Bony structures are age-appropriate. IMPRESSION: 1. Nonobstructive small bowel gas pattern. 2. Moderate colonic air and stool. Please correlate for constipation. Dictated by: Dictated on workstation # [id number]
[2020-08-24 09:04] LABS: BILIRUBIN,URINE NEGATIVE (NEGATIVE); CLARITY,URINE CLEAR; COLOR,URINE YELLOW; GLUCOSE, URINE (UA) 3+ (NEGATIVE); KETONES,URINE 2+ (NEGATIVE); LEUKOCYTE ESTERASE ,URINE NEGATIVE (NEGATIVE); NITRITE,URINE NEGATIVE (NEGATIVE); PROTEIN,URINE NEGATIVE (NEGATIVE)
[2020-08-24 09:18] LABS: AMPHETAMINE SCREEN, URINE NEGATIVE (NEGATIVE); BARBITURATE SCREEN URINE NEGATIVE (NEGATIVE); BENZODIAZEPINES SCREEN URINE NEGATIVE (NEGATIVE); CANNABINOID SCREEN, URINE POSITIVE (NEGATIVE); COCAINE SCREEN URINE NEGATIVE (NEGATIVE); METHADONE STAT NEGATIVE (NEGATIVE); METHAMPHETAMINE SCREEN URINE S NEGATIVE (NEGATIVE); OPIATE SCREEN URINE NEGATIVE (NEGATIVE); OXYCODONE STAT NEGATIVE (NEGATIVE); PROPOXYPHENE STAT NEGATIVE (NEGATIVE); TRICYCLIC ANTIDEPRESSANTS SCRE NEGATIVE (NEGATIVE)
[2020-08-24 09:27] LABS: BACTERIA,URINE NEGATIVE /HPF
[2020-08-24] MEDS ORDERED: inSUlin (REGULAR) HUMAN 1 UNIT/0.01 ML (CHARGE PER UNIT) SC ONE ×2 (10:00→11:00)
[2020-08-24 10:30] VITALS: BP 159/89
[2020-08-24] MEDS: LACTATED RINGERS 1,000 ML IV SCH ×2 (10:57→16:52)
[2020-08-24] MEDS: PROMETHAZINE INJ 25 MG/ML (PHENERGAN) AMP IV PRN ×2 (11:04→20:09)
[2020-08-24 12:00] VITALS: BP 159/89
[2020-08-24] MEDS: ONDANSETRON 4 MG/2 ML (SDV) Z0FRAN IV PRN ×3 (12:28→21:41)
--- NOTE | 2020-08-24 12:52 | History & Physical-Hospitalist ---
LAURIE LOWERY [facility] 08/24/20 1252: History of Present Illness HPI/Chief Complaint Alvaro is a 35 y/o male that is admitted for observation for uncontrolled N/V and abdominal pain. The patient has been to the [facility] ER 3 times in the last three days for the same presentation. His abdominal pain, N/V started on Sunday and he has no relief with Zofran. His abdominal pain is diffuse with localization to the mid-epigastric area to LUQ at times. he describes the midepigastric pain as a burning sensation. Denies anything that has made it better or worse. Pertinent PMH for T1DM. He denies taking insulin this morning. Abdominal Xray was negative for obstruction. Denies: Chest pain, SOB, blood in stool or emesis, constipation (last BM this morning, described as normal), F/C, dysuria or incomplete emptying. Positive for abdominal pain, and N/V. It should be noted patient was putting fingers down his throat to induce vomiting. He states "I just need to vomit, but I cant" Source: patient Exam Limitations: no limitations Date Seen 08/24/20 Time Seen by a Provider: 11:15 Attending Physician Lexi Mclean DO [facility] Referring Physician Date of Admission Aug 24, 2020 at 09:52 Home Medications & Allergies Home Medications Reviewed patient Home Medication Reconciliation performed by pharmacy medication reconciliations indoor plant technician and/or nursing. Patients Allergies have been reviewed. Allergies Allergies Coded Allergies tramadol (Verified Adverse Reaction, Mild, N/V, 12/21/14) Past Paallcr-Btfxei-Vhjryy Hx Past Med/Social Hx: Reviewed Nursing Past Med/Soc Hx Patient Social History Alcohol Use: Denies Use Recreational Drug Use: Yes (POT) Drug of Choice: POT Former Smoker, Quit: Aug 14, 2017 Type Used: Smokeless Tobacco 2nd Hand Smoke Exposure: No Recent Foreign Travel: No Contact w/other who traveled: No Recent Hopitalizations: No Recent Infectious Disease Expo: No Immunizations Up To Date Tetanus Booster (TDap): Unknown Date of Pneumonia Vaccine: Aug 27, 2011 Date of Influenza Vaccine: Mar 04, 2019 Seasonal Allergies Seasonal Allergies: No Past Medical History Surgeries: Gallbladder Currently Using CPAP: No Currently Using BIPAP: No Cardiac: Hypertension Neurological: Neuropathy Reproductive: No Sexually Transmitted Disease: No HIV/AIDS: No Genitourinary: Kidney Infection Gastrointestinal: Liver Disease/Jaundice Musculoskeletal: Arthritis, Scoliosis, Chronic Back Pain Endocrine: Diabetes, Insulin dep Hearing Impairment: Denies Psychosocial: Depression History of Blood Disorders: No Adverse Reaction to Blood Tony: No Family History Reviewed Nursing Family Hx Alcoholism 19 FATHER G8 BROTHER Congenital heart disease 19 FATHER Family history: Cardiovascular disease 19 FATHER, Onset:40's - 50 Family history: Diabetes mellitus 19 MOTHER Family history: Hypertension 19 FATHER Heart disease 19 FATHER History of - respiratory disease 19 FATHER History of drug abuse 19 MOTHER Hypercholesterolemia 19 FATHER Myocardial infarction 19 FATHER Seizure disorder 19 FATHER No Family History of: Abdominal aortic aneurysm Markos's disease Cancer Congestive heart failure Cystic fibrosis Dementia Dysphagia Family history: Allergy Family history: Alzheimer's disease Family history: Arthritis Family history: Asthma Family history: Breast disease Family history: Coronary thrombosis Family history: Gastrointestinal disease Family history: Glaucoma Family history: Osteoporosis Family history: Thyroid disorder Headache Hearing loss Hereditary disease History of - anemia History of - disorder Human immunodeficiency virus (HIV) seropositivity Infertile Kidney disease Malignant neoplasm of lung Parkinson's disease Prostate cancer Psychotic disorder Stroke Tuberculosis Visual impairment No Pertinent Family Hx Review of Systems Constitutional: No chills, No fever EENTM: no symptoms reported Respiratory: no symptoms reported Cardiovascular: no symptoms reported Gastrointestinal: see HPI Genitourinary: no symptoms reported Musculoskeletal: no symptoms reported Skin: no symptoms reported Psychiatric/Neurological: No Symptoms Reported Physical Exam Physical Exam Vital Signs Vital Signs - First Documented 08/24/20 08/24/20 07:26 10:30 Temp 35.6 Pulse 66 Resp 20 B/P (MAP) 150/89 (109) Pulse Ox 100 O2 Delivery Room Air Capillary Refill : Less Than 3 Seconds Height, Weight, BMI Height: 5'10.00" Weight: 240lbs. 0oz. [id number]; 36.60 BMI Method:Stated General Appearance: Anxious, Mild Distress Neck: Full Range of Motion, Non Tender Respiratory: Chest Non Tender, No Accessory Muscle Use, No Respiratory Distress; No Wheezing Cardiovascular: Regular Rate, Rhythm, No Edema, Normal Peripheral Pulses Gastrointestinal: Tenderness, Other (midepigastric and LUQ tenderness with palpation. (-) for Jayla. ) Back: No CVA Tenderness, No Vertebral Tenderness Extremity: No Calf Tenderness, No Pedal Edema Neurologic/Psychiatric: Alert, Oriented x3 Skin: Normal Color, Warm/Dry Lymphatic: No Adenopathy Results Results/Procedures Labs Laboratory Tests 08/24/20 07:34 Patient resulted labs reviewed. Assessment/Plan Admission Diagnosis 1. Abdominal pain - will review gen surg note - ddx considering colitis or gastritis - abdomen xray showed no obstruction - consider NPO 2. nausea and vomiting - continue IV fluids and nausea management 3. T1DM - continue insulin - monitor glucose and potassium Plan 08/24 - continue IV fluids and nausea management - will review gen surg note - continue sliding scale with insulin - monitor labs MCLEANLEXI MARQUEZ 08/25/20 0608: History of Present Illness HPI/Chief Complaint CC: Nausea and vomiting HPI: This is a 38yoWM clinic pt of [facility] with a history of type 1 DM who has visited the ER 3x in the last three days for nausea and vomiting. Apparently he was in need of IV fluids and antiemetics. I have consulted Dr. Ca in case he needs and NG tube. When I walked into the room he actually had his two fingers down his throat gagging himself to throw up in the wagner. Will monitor blood sugar closely and monitor BP. Source: patient Exam Limitations: no limitations Past Ympufij-Vurmof-Elmyfo Hx Past Med/Social Hx: Reviewed Nursing Past Med/Soc Hx, Reviewed and Corrections made Patient Social History Marrital Status: single Employed/Student: unemployed Alcohol Use: Regular Use Smoking Status: Current Everyday Smoker Past Medical History Endocrine: Diabetes, Insulin dep Family History Alcoholism 19 FATHER G8 BROTHER Congenital heart disease 19 FATHER Family history: Cardiovascular disease 19 FATHER, Onset:40's - 50 Family history: Diabetes mellitus 19 MOTHER Family history: Hypertension 19 FATHER Heart disease 19 FATHER History of - respiratory disease 19 FATHER History of drug abuse 19 MOTHER Hypercholesterolemia 19 FATHER Myocardial infarction 19 FATHER Seizure disorder 19 FATHER No Family History of: Abdominal aortic aneurysm Spencer's disease Cancer Congestive heart failure Cystic fibrosis Dementia Dysphagia Family history: Allergy Family history: Alzheimer's disease Family history: Arthritis Family history: Asthma Family history: Breast disease Family history: Coronary thrombosis Family history: Gastrointestinal disease Family history: Glaucoma Family history: Osteoporosis Family history: Thyroid disorder Headache Hearing loss Hereditary disease History of - anemia History of - disorder Human immunodeficiency virus (HIV) seropositivity Infertile Kidney disease Malignant neoplasm of lung Parkinson's disease Prostate cancer Psychotic disorder Stroke Tuberculosis Visual impairment Review of Systems Constitutional: see HPI Physical Exam Physical Exam General Appearance: No Apparent Distress, Chronically ill Eyes: Right Eye Normal Inspection, Right Eye PERRL HEENT: PERRL/EOMI, TMs Normal, Normal ENT Inspection, Pharynx Normal, Moist Mucous Membranes Neck: Full Range of Motion, Normal Inspection, Non Tender Respiratory: Chest Non Tender, Lungs Clear, Normal Breath Sounds, No Accessory Muscle Use, No Respiratory Distress Cardiovascular: Regular Rate, Rhythm, No Edema, No Gallop, No JVD, No Murmur, Normal Peripheral Pulses Gastrointestinal: Normal Bowel Sounds, No Organomegaly, No Pulsatile Mass, Non Tender, Soft Back: Normal Inspection, No CVA Tenderness, No Vertebral Tenderness Extremity: Normal Capillary Refill, Normal Inspection, Normal Range of Motion, Non Tender, No Calf Tenderness, No Pedal Edema Neurologic/Psychiatric: Alert, Oriented x3, No Motor/Sensory Deficits, Normal Mood/Affect Skin: Normal Color, Warm/Dry Lymphatic: No Adenopathy Assessment/Plan Admission Diagnosis Consult general surgery Monitor sugar supportive care Admission Status: Observation Supervisory-Addendum Brief Verification & Attestation Participated in pt care: history, MDM, physical Personally performed: exam, history, MDM, supervision of care Care discussed with: Medical Student Procedures: n/a Results interpretation: Verified all documentation Verification and Attestation of Medical Student E/M Service A medical student performed and documented this service in my presence. I reviewed and verified all information documented by the medical student and made modifications to such information, when appropriate. I personally performed the physical exam and medical decision making. Lexi Mclean, Aug 25, 2020,06:08 LAURIE LOWERY [facility] Aug 24, 2020 12:52 LEXI MCLEAN DO Aug 25, 2020 06:08
[2020-08-24] MEDS ORDERED: MULT-1136 PO (14:24)
[2020-08-24] MEDS ORDERED: INSU100V16 SQ (14:24)
[2020-08-24] MEDS ORDERED: INSU100V6 SQ (14:24)
[2020-08-24] MEDS ORDERED: ACET-2267 PO (14:24)
[2020-08-24] MEDS ORDERED: GABA800T10 PO (14:24)
[2020-08-24 16:00] VITALS: BP 135/71
[2020-08-24] MEDS: inSUlin ASPART (NovoLOG) 1 UNIT/0.01 ML (CHARGE PER UNIT) SC SCH ×2 (16:33→21:42)
--- NOTE | 2020-08-24 17:20 | CONSULTATION REPORT ---
DATE OF SERVICE: 08/24/2020 HISTORY OF PRESENT ILLNESS: The patient is a 35-year-old male who presented to the Emergency Department with persistent nausea and vomiting as well as epigastric pain. He stated that this started 2 days ago and was seen in the emergency room and was given GI cocktail, which helped; however, he had a reoccurrence of symptoms. He reports that he had similar symptoms when he had his gallbladder and states that he had this removed several months ago and this did improve his nausea and vomiting; however, has had some reoccurrence of symptoms. He states that he does smoke marijuana sparingly approximately a few times a month and does not smoke regular cigarettes. He does state drinking significant amount of caffeinated beverages as well as energy drinks. He is also an insulin-dependent diabetic. He does not report any nausea or vomiting as well as no hematemesis, no coffee ground emesis. PAST MEDICAL HISTORY: Insulin-dependent diabetes, hypertension, peripheral neuropathy, degenerative joint disease, scoliosis. PAST SURGICAL HISTORY: Laparoscopic cholecystectomy. ALLERGIES: TRAMADOL. MEDICATIONS: Famotidine 20 mg b.i.d., gabapentin 800 mg q.i.d., insulin 5 units t.i.d., detemir insulin 45 units at bedtime, Zofran 8 mg q.4 hours p.r.n., oxycodone 5 mg q.4 hours p.r.n. SOCIAL HISTORY: Positive for marijuana smoke, negative alcohol, positive caffeine. FAMILY HISTORY: Mother, diabetes. Father, hypertension. VITAL SIGNS: Temperature 37.7, blood pressure 159/89, pulse 64, respirations 18, pulse ox 97% on room air. REVIEW OF SYSTEMS: Well-nourished male, in no acute distress. He is not experiencing any shortness of breath or difficulty breathing. No chest pain, palpitations, diaphoresis. Intermittent episodes of nausea and vomiting, one episode since he has been admitted. He states that he is having regular bowel movements. No red blood per rectum, no dark tarry stools. No fever, chills, no recent inadvertent weight loss. All other review of systems negative. PHYSICAL EXAMINATION: CHEST: Few scattered rales bilaterally. HEART: Regular, no murmurs. EXTREMITIES: No lower extremity edema, negative Homans sign. HEENT: No scleral icterus. NECK: No cervical lymphadenopathy. ABDOMEN: Soft, nondistended. There is mild discomfort in the epigastric region upon deep palpation. No peritoneal signs. No hernias. SKIN: Warm, dry. LABORATORY DATA: WBC 7.2, hemoglobin 14.1, hematocrit 41, and platelets 291. Glucose 406, BUN 16, creatinine 1.22. ASSESSMENT AND PLAN: A 35-year-old male with gastroenteritis and peptic ulcer disease. He does have some risk factors for this including a smoking as well as drinking significant amounts of caffeinated beverages. We will recommend moderation or cessation of these risk factors that increase acid production. The option was given to proceed with an EGD for definitive diagnosis on this admission; however, he states he would like to waitand do this as an outpatient with Dr. Winter who did his gallbladder surgery. For now, we will continue with b.i.d. PPI acid systems consultant IV and carafate and slowly advance diet as tolerated. He also does have hyperglycemia and unsure of his long-term glycemic control, which also may be contributing to his nausea and vomiting. Job ID: [id number] DocumentID: [id number] Dictated Date: 08/24/2020 16:51:13 Associate Professor Of Management Date: 08/24/2020 17:19:20 Dictated By: LUIS PEARSON MD [facility]
[2020-08-24 19:28] VITALS: BP 122/64
[2020-08-24] MEDS: PANTOPRAZOLE 40 MG (PROTONIX) VIAL IV SCH (21:41)
[2020-08-24] MEDS: SUCRALFATE 1 GM (CARAFATE) TAB PO SCH (21:41)
[2020-08-24] MEDS: FAMOTIDINE 20MG/2ML IV (PEPCID) IV SCH (22:44)
[2020-08-24] MEDS: fentaNYL INJ 100 MCG/2 ML AMP IVP PRN (22:44)
[2020-08-24] MEDS: PROMETHAZINE INJ 25 MG/ML (PHENERGAN) AMP IVP PRN (23:15)
[2020-08-24 23:42] VITALS: BP 141/73
[2020-08-25] MEDS: LACTATED RINGERS 1,000 ML IV SCH ×4 (00:20→16:46)
[2020-08-25] MEDS: fentaNYL INJ 100 MCG/2 ML AMP IVP PRN ×8 (00:55→21:18)
[2020-08-25] MEDS: PROMETHAZINE INJ 25 MG/ML (PHENERGAN) AMP IVP PRN ×7 (02:13→22:37)
[2020-08-25 04:21] VITALS: BP 106/51
[2020-08-25] MEDS: SUCRALFATE 1 GM (CARAFATE) TAB PO SCH ×4 (05:17→21:18)
[2020-08-25 05:35] LABS: BASOPHILS % (AUTO) 1 % (0-10); EOSINOPHILS % (AUTO) 0 % (0-10); HEMATOCRIT 33 % (40-54); LYMPHOCYTES # (AUTO) 1.6 10^3/uL (1.0-4.0); LYMPHOCYTES % (AUTO) 22 % (12-44); MEAN CORPUSCULAR HEMOGLOBIN 29 pg (25-34); MEAN CORPUSCULAR HGB CONC 33 g/dL (32-36); MEAN CORPUSCULAR VOLUME 88 fL (80-99); MEAN PLATELET VOLUME 9.5 fL (9.0-12.2); MONOCYTES # (AUTO) 0.4 10^3/uL (0.0-1.0); MONOCYTES % (AUTO) 5 % (0-12); NEUTROPHILS # (AUTO) 5.1 10^3/uL (1.8-7.8); NEUTROPHILS % (AUTO) 71 % (42-75); PLATELET COUNT 162 10^3/uL (130-400); WHITE BLOOD COUNT 7.1 10^3/uL (4.3-11.0)
[2020-08-25 05:51] LABS: ALBUMIN 3.1 GM/DL (3.2-4.5)
[2020-08-25 05:52] LABS: CHLORIDE 102 MMOL/L (98-107); POTASSIUM 3.8 MMOL/L (3.6-5.0); SODIUM 132 MMOL/L (135-145)
[2020-08-25 05:53] LABS: CALCIUM 7.6 MG/DL (8.5-10.1)
[2020-08-25 05:54] LABS: GLUCOSE 326 MG/DL (70-105)
[2020-08-25 05:55] LABS: CARBON DIOXIDE 20 MMOL/L (21-32)
[2020-08-25 05:56] LABS: BILIRUBIN,TOTAL 0.5 MG/DL (0.1-1.0)
[2020-08-25 05:57] LABS: ALKALINE PHOSPHATASE 62 U/L (40-136)
[2020-08-25 05:58] LABS: CREATININE SERUM 0.75 MG/DL (0.60-1.30); GFR ESTIMATED > 60
[2020-08-25 05:59] LABS: BUN/CREATININE RATIO 16
[2020-08-25 06:00] LABS: ALANINE AMINOTRANSFERASE 19 U/L (0-55)
[2020-08-25] MEDS: inSUlin ASPART (NovoLOG) 1 UNIT/0.01 ML (CHARGE PER UNIT) SC SCH ×4 (06:33→21:17)
[2020-08-25 08:00] VITALS: BP 138/70
[2020-08-25] MEDS ORDERED: PANTOPRAZOLE 40 MG (PROTONIX) VIAL IV SCH (09:00)
[2020-08-25] MEDS: FAMOTIDINE 20MG/2ML IV (PEPCID) IV SCH ×2 (09:54→21:18)
[2020-08-25] MEDS: PANTOPRAZOLE 40 MG (PROTONIX) VIAL IV SCH ×2 (09:54→21:18)
[2020-08-25 12:00] VITALS: BP 131/67
--- NOTE | 2020-08-25 12:54 | Progress Note - Hospitalist ---
LAURIE LOWERY [facility] 08/25/20 1254: Subjective HPI/CC On Admission Date Seen by Provider: Aug 25, 2020 Time Seen by Provider: 10:55 CC: Nausea and vomiting HPI: This is a 38yoWM clinic pt of [facility] with a history of type 1 DM who has visited the ER 3x in the last three days for nausea and vomiting. Apparently he was in need of IV fluids and antiemetics. I have consulted Dr. Ca in case he needs and NG tube. When I walked into the room he actually had his two fingers down his throat gagging himself to throw up in the wagner. Will monitor blood sugar closely and monitor BP. Subjective/Events-last exam Alvaro is sitting up in bed. He states he has not had any N/V since 3am. He feels his pain is well controlled. He continues to have pain with palpation in the mid-epigastric region and RUQ. He describes it as a burning sensation. He had a small BM and denies blood. Urinating without issue. He is not tolerating current diet. Denies F/C,SOB, Chest pain, constipation, hematochezia, blood in emesis, dysuria, incomplete empyting, dizziness or vision changes at this time. Positive for abdominal pain. Review of Systems General: No Chills HEENT: No Visual Changes Pulmonary: No Dyspnea, No Cough Cardiovascular: No: Chest Pain, Palpitations Gastrointestinal: Nausea (improved), Vomiting (improved), Abdominal Pain Genitourinary: No Dysuria, No Frequency Objective Exam Vital Signs Vital Signs Date Time Temp Pulse Resp B/P (MAP) Pulse Ox O2 Delivery O2 Flow Rate FiO2 08/25/20 12:00 36.9 71 18 131/67 (88) 99 Room Air Capillary Refill : Less Than 3 Seconds General Appearance: Anxious Respiratory: Chest Non Tender, No Accessory Muscle Use, No Respiratory Distress Cardiovascular: Regular Rate, Rhythm, No Edema, Normal Peripheral Pulses Gastrointestinal: Soft; No Distended, No Hepatomegaly; Rebound (minimal ); No Splenomegaly; Tenderness (RUQ and midepigastric region) Extremity: No Calf Tenderness, No Pedal Edema Neurologic/Psychiatric: Alert, Oriented x3 Skin: Normal Color, Warm/Dry Lymphatic: No Adenopathy Results/Procedures Lab Laboratory Tests 08/25/20 05:24 Patient resulted labs reviewed. Assessment/Plan Assessment and Plan Assess & Plan/Chief Complaint 1. Abdominal pain - will review gen surg note - ddx considering colitis, gastritis, PUD - abdomen xray showed no obstruction - consider NPO 2. nausea and vomiting - continue IV fluids and nausea management 3. T1DM - continue insulin - monitor glucose and potassium Plan 08/25 - continue IV fluids and nausea management - will review gen surg note, possible EGD inpatient vs oupatient - continue sliding scale with insulin - monitor labs, HgB dropped from 14->11. consider type and cross if worsens, Will monitor and appreciate surg recs. LEXI MCLEAN DO 08/26/20 0548: Subjective Subjective/Events-last exam Pt feeling much better No more vomiting since 299 today Acu-checks will be maintained with sliding scale insulin Reviewed labs Review of Systems Gastrointestinal: Nausea (improved), Vomiting (improved) Objective Exam General Appearance: No Apparent Distress, WD/WN Respiratory: Lungs Clear Cardiovascular: Regular Rate, Rhythm Assessment/Plan Assessment and Plan Assess & Plan/Chief Complaint Monitor N/V Supportive care Supervisory-Addendum Brief Verification & Attestation Participated in pt care: history, MDM, physical Personally performed: exam, history, MDM, supervision of care Care discussed with: Medical Student Procedures: n/a Results interpretation: Verified all documentation Verification and Attestation of Medical Student E/M Service A medical student performed and documented this service in my presence. I reviewed and verified all information documented by the medical student and made modifications to such information, when appropriate. I personally performed the physical exam and medical decision making. Lexi Mclean Aug 26, 2020,05:[address] [facility] Aug 25, 2020 12:54 LEXI MCLEAN DO Aug 26, 2020 05:48
--- NOTE | 2020-08-25 14:37 | Physical Therapy Evaluation ---
PT Evaluation-General Medical Diagnosis Admission Date Aug 24, 2020 at 09:52 Medical Diagnosis: N/V, Abdominal Pain Onset Date: Aug 24, 2020 Therapy Diagnosis Therapy Diagnosis: Decreased balance with funcional activities Height/Weight Height (Feet): 5 Height (Inches): 10.00 Weight (Pounds): 240 Weight (Ounces): 0 Precautions Precautions/Isolations: Fall Prevention, Standard Precautions Weight Bear Status Right Lower Extremity: Right Full Weight Bearing Left Lower Extremity: Left Full Weight Bearing Referral Physician: Sylvester Reason for Referral: Evaluation/Treatment Medical History Pertinent Medical History: COPD, DM, HTN, Neuropathy Additional Medical History Hx smokeless tobacco and pot, liver disease, depression, chronic back pain, scoliosis, arthritis, kidney infection Current History To ER 3x over 3 days with same complaints of N/V and abdominal pain Reviewed History: Yes Social History Home: Single Level Current Living Status: Alone (Parents live next door) Entry Into Home: Ramp Prior Prior Level of Function SCALE: Activities may be completed with or without assistive devices. 0-Wegeikrvxy-nvgcgcw completes the activity by him/herself with no assistance from a helper. 5-Set-up or Clean-up Assistance-helper sets up or cleans up; patient completes activity. [place] assists only prior to or following the activity. 4-Supervision or Touching Assistance-helper provides verbal cues and/or touching/steadying and/or contact guard assistance as patient completes activity. Assistance may be provided throughout the activity or intermittently. 3-Partial/Moderate Assistance-helper does LESS THAN HALF the effort. [place] lifts, holds or supports trunk or limbs, but provides less than half the effort. 2-Substantial/Maximal Assistance-helper does MORE THAN HALF the effort. [place] lifts or holds trunk or limbs and provides more than half the effort. 9-Arldqjyxz-vssulm does ALL the effort. Patient does none of the effort to complete the activity. Or, the assistance of 2 or more helpers is required for the patient to complete the activity. If activity was not attempted, code reason: 7-Patient Refused. 9-Not Applicable-not attempted and the patient did not perform the activity before the current illness, exacerbation or injury. 10-Not Attempted due to Environmental Limitations-(lack of equipment, weather restraints, etc.). 88-Not Attempted due to Medical Conditions or Safety Concerns. Bed Mobility: 6 Transfers (B,C,W/C): 6 Gait: 6 Stairs: 6 Indoor Mobility (Ambulation): Independent Stairs: Independent Prior Devices Use: None PT Evaluation-Current Subjective Patient reports mild nausea, unrated pain in arm secondary to IV, and moderate dizziness that he reports "comes on and off out of nowhere." Patient reports he is about 50% of his normal function. Pt/Family Goals Return to PLOF with home mobility Objective Patient Orientation: Person, Place, Time, Normal For Age Attachments: IV ROM/Strength ROM Upper Extremities WNL ROM Lower Extremities WNL grossly Strength Upper Extremities WNL Strength Lower Extremities WNL grossly: no deficits in LE strength noted Integumentary/Posture Bowel Incontinence: No Bladder Incontinence: No Posture WNL Sensory Vision: Functional Hearing: Functional Sensation Right Lower Extremit: Intact Sensation Left Lower Extremity: Intact Transfers Sit to Stand (QC): 4 Patient is physically able to perform transfer with independence. CGA x1 with transfer secondary to patient reports of occasional lightheadedness/dizziness. Gait Does the Patient Walk?: Yes Mode of Locomotion: Walk Anticipated Mode of Locomotion: Walk Walk 10 feet (QC): 4 Walk 50 ft with 2 Turns(QC): 4 Walk 150 ft (QC): 4 Distance: 300' Gait Assistive Device: None Comments/Gait Description CGA x1 utilized with ambulation secondary to patient report of quick onset lightheadedness/dizziness. Patient noted walking with mild unsteadiness throughout ambulation, with no humphrey LOB. Prior to ambulation patient was able to stand on one leg and put pants on, bilaterally. Wheelchair Training Does the Pt Use a Wheelchair?: No Balance Sitting Static: Good Sitting Dynamic: Fair Standing Static: Fair Standing Dynamic: Fair Picking up an Object (QC): 88 Assessment/Needs Patient appeared to be impulsive with movement; his IV insertion was covered in cold pack. Patient was up in the room upon PT entry, and continued to move quickly without bringing IV along. Patient will benefit from PT intervention to continue working on patient balance with functional activities and gait. Patient was left seated upright in chair, with call button nearby, and tray positioned beside him post tx. Rehab Potential: Good PT Casino Floor Runner Goals Casino Floor Runner Goals PT Casino Floor Runner Goals Time Frame: Sep 01, 2020 Roll Left & Right (QC): 6 Sit to Lying (QC): 6 Lying-Sitting on Side/Bed(QC): 6 Sit to Stand (QC): 6 Chair/Mya-sa-Huqee Xfer(QC): 6 Toilet Transfer (QC): 6 Walk 10 feet (QC): 6 Walk 50ft with 2 Turns (QC): 6 Walk 150 ft (QC): 6 LTG established to allow safe return home and return to OF. PT Plan Problem List Problem List: Activity Tolerance, Safety, Balance, Gait Treatment/Plan Treatment Plan: Continue Plan of Care Treatment Plan: Education, Functional Activity Diana, Gait, Safety, Therapeutic Exercise, Transfers Treatment Duration: Sep 01, 2020 Frequency: 6 times per week Estimated Hrs Per Day: .25 hour per day Patient and/or Family Agrees t: Yes Safety Risks/Education Patient Education: Safety Issues Teaching Recipient: Patient Teaching Methods: Discussion Response to Teaching: Verbalize Understanding Educated patient to call for assistance when getting out of bed/chair to bathroom secondary to complaints of dizziness and to manage lines/tubes with f unctional activities. Discharge Recommendations Therapy Discharge Recommendati: Home & Family Time/GCodes Time In: 1412 Time Out: 1421 Total Billed Treatment Time: 9 Total Billed Treatment 1 visit: EVL: 9' PARESH KIRK DPT Aug 25, 2020 14:37
[2020-08-25 16:30] VITALS: BP 125/80
--- NOTE | 2020-08-25 17:51 | Progress Note ---
Subjective Date Seen by a Provider: Aug 25, 2020 Time Seen by a Provider: 17:00 Subjective/Events-last exam doing slightly better today. able to tolerate liquids today. still has mild nausea. he would like to now proceed with EGD on this admission which we will schedule. Objective Exam Vital Signs Date Time Temp Pulse Resp B/P (MAP) Pulse Ox O2 Delivery O2 Flow Rate FiO2 08/25/20 16:30 36.7 59 16 125/80 (95) 98 Room Air 08/25/20 12:00 36.9 71 18 131/67 (88) 99 Room Air 08/25/20 08:57 Room Air 08/25/20 08:00 36.5 78 16 138/70 (92) 97 Room Air 08/25/20 04:21 37.8 80 20 106/51 (69) 95 Room Air 08/24/20 23:42 37.5 61 18 141/73 (95) 99 Room Air 08/24/20 20:10 Room Air 08/24/20 19:28 36.8 53 16 122/64 (83) 98 Room Air I & O 08/25/20 07:00 Intake Total 1850 ml Balance 1850 ml Capillary Refill : Less Than 3 Seconds General Appearance: No Apparent Distress HEENT: PERRL/EOMI Neck: Full Range of Motion Respiratory: Chest Non Tender, Lungs Clear Cardiovascular: Regular Rate, Rhythm Gastrointestinal: normal bowel sounds, soft, tenderness Extremity: Normal Capillary Refill Neurologic/Psychiatric: Alert, Oriented x3 Skin: Normal Color Lymphatic: No Adenopathy Results Lab Laboratory Tests 08/24/20 21:01: Glucometer 252H 08/25/20 05:24: White Blood Count 7.1, Red Blood Count 3.76L, Hemoglobin 11.0#L, Hematocrit 33L, Mean Corpuscular Volume 88, Mean Corpuscular Hemoglobin 29, Mean Corpuscular Hemoglobin Concent 33, Red Cell Distribution Width 12.0, Platelet Count 162, Mean Platelet Volume 9.5, Immature Granulocyte % (Auto) 0, Neutrophils (%) (Auto) 71, Lymphocytes (%) (Auto) 22, Monocytes (%) (Auto) 5, Eosinophils (%) (Auto) 0, Basophils (%) (Auto) 1, Neutrophils # (Auto) 5.1, Lymphocytes # (Auto) 1.6, Monocytes # (Auto) 0.4, Eosinophils # (Auto) 0.0, Basophils # (Auto) 0.0, Immature Granulocyte # (Auto) 0.0, Sodium Level 132L, Potassium Level 3.8, Chloride Level 102, Carbon Dioxide Level 20L, Anion Gap 10, Blood Urea Nitrogen 12, Creatinine 0.75, Estimat Glomerular Filtration Rate > 60, BUN/Creatinine Ratio 16, Glucose Level 326H, Calcium Level 7.6L, Corrected Calcium 8.3L, Total Bilirubin 0.5, Aspartate Amino Transf (AST/SGOT) 14, Alanine Aminotransferase (ALT/SGPT) 19, Alkaline Phosphatase 62, Total Protein 5.0L, Albumin 3.1L 08/25/20 10:11: Glucometer 267H 08/25/20 15:55: Glucometer 153H Assessment/Plan Assessment/Plan Assess & Plan/Chief Complaint PUD/gastritis with nausea/vomiting. cont IV PPI and carafate. will schedule EGD tomorrow LUIS PEARSON MD Aug 25, 2020 17:51
--- NOTE | 2020-08-25 17:53 | Conscious Sedation/ASA ---
Conscious Sedation Pre-Proced Time 17:00 ASA Score 2 For ASA 3 and 4: Consider anesthesia and medical clearance. Also, for patients with a history of failed moderate sedation consider anesthesia. Airway Lungs Heart ASA score ASA 1: a normal healthy patient ASA 2: a patient with a mild systemic disease (mid diabetes, controlled hypertension, obesity ASA 3: a patient with a severe systemic disease that limits activity (angina, COPD, prior Myocardial infarction) ASA 4: a patient with an incapacitating disease that is a constant threat to life (CHF, renal failure) ASA 5: a moribund patient not expected to survive 24 hrs. (ruptured aneurysm) ASA 6: a declared brain- patient whose organs are being harvested. For emergent operations, add the letter E after the classification Mallampati Classification Grade 2 Sedation Plan Analgesia, Amnesia, Plan communicated to team members, Discussed options with patient/fam, Discussed risks with patient/fam The patient is an appropriate candidate to undergo the planned procedure, sedation, and anesthesia. The patient immediately re-assessed prior to indication. LUIS PEARSON MD Aug 25, 2020 17:53
--- NOTE | 2020-08-25 17:54 | Progress Note-Pre Operative ---
Pre-Operative Progress Note H&P Reviewed The H&P was reviewed, patient examined and no changes noted. Date Seen by Provider: Aug 25, 2020 Time Seen by Provider: 17:00 Date H&P Reviewed: Aug 25, 2020 Time H&P Reviewed: 17:00 Pre-Operative Diagnosis: PUD/gastritis, nausea/vomiting LUIS PEARSON MD Aug 25, 2020 17:54
[2020-08-25 20:21] VITALS: BP 127/71
[2020-08-26] VITALS (8 sets, daily range): BP systolic 100–166; BP diastolic 53–89
[2020-08-26] MEDS: LACTATED RINGERS 1,000 ML IV SCH ×2 (00:04→08:57)
[2020-08-26] MEDS: fentaNYL INJ 100 MCG/2 ML AMP IVP PRN ×6 (00:13→18:06)
[2020-08-26] MEDS: PROMETHAZINE INJ 25 MG/ML (PHENERGAN) AMP IVP PRN ×4 (04:42→11:40)
[2020-08-26 06:12] LABS: BASOPHILS % (AUTO) 1 % (0-10); EOSINOPHILS # (AUTO) 0.1 10^3/uL (0.0-0.3); EOSINOPHILS % (AUTO) 2 % (0-10); HEMATOCRIT 35 % (40-54); HEMOGLOBIN 11.6 g/dL (13.3-17.7); LYMPHOCYTES # (AUTO) 3.5 10^3/uL (1.0-4.0); LYMPHOCYTES % (AUTO) 60 % (12-44); MEAN CORPUSCULAR HEMOGLOBIN 29 pg (25-34); MEAN CORPUSCULAR HGB CONC 33 g/dL (32-36); MEAN CORPUSCULAR VOLUME 88 fL (80-99); MEAN PLATELET VOLUME 9.7 fL (9.0-12.2); MONOCYTES # (AUTO) 0.3 10^3/uL (0.0-1.0); MONOCYTES % (AUTO) 6 % (0-12); NEUTROPHILS # (AUTO) 1.9 10^3/uL (1.8-7.8); NEUTROPHILS % (AUTO) 32 % (42-75); PLATELET COUNT 166 10^3/uL (130-400); WHITE BLOOD COUNT 5.9 10^3/uL (4.3-11.0)
[2020-08-26 06:35] LABS: ALANINE AMINOTRANSFERASE 19 U/L (0-55); ALBUMIN 3.2 GM/DL (3.2-4.5); ALKALINE PHOSPHATASE 67 U/L (40-136); BILIRUBIN,TOTAL 0.4 MG/DL (0.1-1.0); BUN/CREATININE RATIO 8; CALCIUM 7.9 MG/DL (8.5-10.1); CARBON DIOXIDE 27 MMOL/L (21-32); CHLORIDE 105 MMOL/L (98-107); CREATININE SERUM 0.74 MG/DL (0.60-1.30); GFR ESTIMATED > 60; POTASSIUM 3.1 MMOL/L (3.6-5.0); SODIUM 141 MMOL/L (135-145); TOTAL PROTEIN 5.1 GM/DL (6.4-8.2)
[2020-08-26 06:43] LABS: GLUCOSE 51 MG/DL (70-105)
[2020-08-26] MEDS ORDERED: DEXTROSE 50% 50 ML (IMS) SYR ONE (06:48)
[2020-08-26] MEDS ORDERED: DEXTROSE 50% 50 ML (IMS) SYR IV ONE (07:00)
[2020-08-26] MEDS: inSUlin ASPART (NovoLOG) 1 UNIT/0.01 ML (CHARGE PER UNIT) SC SCH ×4 (07:02→20:09)
[2020-08-26] MEDS: SUCRALFATE 1 GM (CARAFATE) TAB PO SCH ×4 (07:25→20:09)
[2020-08-26] MEDS: PANTOPRAZOLE 40 MG (PROTONIX) VIAL IV SCH ×2 (08:57→20:09)
[2020-08-26] MEDS: FAMOTIDINE 20MG/2ML IV (PEPCID) IV SCH ×2 (08:57→20:09)
--- NOTE | 2020-08-26 10:03 | Physical Therapy Progress Note ---
Therapy Progress Note Patient up independently. PT to dismiss from services at this time. KOSTA CLARK PT Aug 26, 2020 10:03
[2020-08-26] MEDS ORDERED: LIDOCAINE JELLY 2% 6 ML SYRINGE ONE (12:36)
[2020-08-26] MEDS ORDERED: NS IV 500 ML 500 ML ONE (12:37)
[2020-08-26] MEDS ORDERED: fentaNYL INJ 100 MCG/2 ML AMP ONE (12:37)
[2020-08-26] MEDS ORDERED: MIDAZOLAM 5 MG/5 ML (VERSED) VIAL ONE ×2 (12:37)
[2020-08-26] MEDS: ONDANSETRON 4 MG/2 ML (SDV) Z0FRAN IV PRN (13:13)
--- NOTE | 2020-08-26 14:03 | Progress Note - Hospitalist ---
BETTYE REESE MED STUDENT 08/26/20 1402: Subjective HPI/CC On Admission Date Seen by Provider: Aug 26, 2020 Time Seen by Provider: 09:15 CC: Nausea and vomiting HPI: This is a 38yoWM clinic pt of [facility] with a history of type 1 DM who has visited the ER 3x in the last three days for nausea and vomiting. Apparently he was in need of IV fluids and antiemetics. I have consulted Dr. Ca in case he needs and NG tube. When I walked into the room he actually had his two fingers down his throat gagging himself to throw up in the wagner. Will monitor blood sugar closely and monitor BP. Subjective/Events-last exam Pt is lying in bed with street attire on. Pt is eager for EGD to be performed. P t states that nausea has improved some and generalized abdominal pain secondary to continued vomiting/ retching. Pt denies recent emesis. When asked about the episode of hypoglycemia this morning, he notes that he had no symptoms and didnt know it was happening until the nurse woke him up to correct it. Pt has no other complaints at this time and no other acute events over night. Review of Systems General: No Chills; Fatigue HEENT: No Head Aches, No Dysphasia Pulmonary: No Dyspnea, No Cough Cardiovascular: No: Chest Pain, Palpitations Gastrointestinal: Nausea, Vomiting, Abdominal Pain Genitourinary: Dysuria; No Hematuria Musculoskeletal: No: back pain, leg pain Neurological: No: Weakness, Numbness Objective Exam Vital Signs Vital Signs Date Time Temp Pulse Resp B/P (MAP) Pulse Ox O2 Delivery O2 Flow Rate FiO2 08/26/20 12:00 36.7 70 20 166/89 (114) 98 Room Air Capillary Refill : Less Than 3 Seconds General Appearance: No Apparent Distress, WD/WN HEENT: PERRL/EOMI, Moist Mucous Membranes Neck: Normal Inspection, Supple Respiratory: Chest Non Tender, Lungs Clear, Normal Breath Sounds, No Accessory Muscle Use, No Respiratory Distress Cardiovascular: Regular Rate, Rhythm, No Edema, No Gallop, No Murmur Gastrointestinal: Normal Bowel Sounds, Soft, Tenderness (Diffuse) Rectal: Deferred Back: No Vertebral Tenderness Extremity: Non Tender, No Calf Tenderness, No Pedal Edema Neurologic/Psychiatric: Alert, Oriented x3, No Motor/Sensory Deficits, Normal Mood/Affect Skin: Warm/Dry, Pallor Results/Procedures Lab Laboratory Tests 08/26/20 05:27 Patient resulted labs reviewed. Assessment/Plan Assessment and Plan Assess & Plan/Chief Complaint ASSESSMENT: Intractable nausea/ vomiting Poorly controlled diabetes Hypokalemia - 3.1 Anemia - 11.6 PLAN: EGD performed by Dr. Ca today - appreciate recs Blood sugar management Anti-emetics Pain control Potassium replacement LEXI MCLEAN DO 08/27/20 0542: Subjective Subjective/Events-last exam Patient acting odd this morning EGD will be done Monitor sugar Review of Systems General: Fatigue Gastrointestinal: Nausea, Vomiting Objective Exam General Appearance: No Apparent Distress, WD/WN, Chronically ill Respiratory: Lungs Clear Cardiovascular: Regular Rate, Rhythm Neurologic/Psychiatric: Alert, Oriented x3, No Motor/Sensory Deficits, Normal Mood/Affect Assessment/Plan Assessment and Plan Assess & Plan/Chief Complaint Monitor N/V EGD today DC soon Supervisory-Addendum Brief Verification & Attestation Participated in pt care: history, MDM, physical Personally performed: exam, history, MDM, supervision of care Care discussed with: Medical Student Procedures: n/a Results interpretation: Verified all documentation Verification and Attestation of Medical Student E/M Service A medical student performed and documented this service in my presence. I reviewed and verified all information documented by the medical student and made modifications to such information, when appropriate. I personally performed the physical exam and medical decision making. Lexi Mclean, Aug 27, 2020,05:41 BETTYE REESE MED STUDENT Aug 26, 2020 14:02 LEXI MCLEAN DO Aug 27, 2020 05:42
[2020-08-26] MEDS ORDERED: NS IV 500 ML 500 ML IV PRN (14:15)
[2020-08-26] MEDS ORDERED: LIDOCAINE JELLY 2% 6 ML SYRINGE MM PRN (14:15)
[2020-08-26] MEDS ORDERED: MIDAZOLAM 5 MG/5 ML (VERSED) VIAL IV ONE (14:15)
[2020-08-26] MEDS ORDERED: fentaNYL INJ 100 MCG/2 ML AMP IVP ONE (14:15)
[2020-08-26] MEDS ORDERED: proPOfol 200 MG/20 ML (DIPRIVAN) VIAL IV ONE (14:32)
[2020-08-26] MEDS ORDERED: MIDAZOLAM 2 MG/2 ML (VERSED) VIAL ONE (14:32)
--- NOTE | 2020-08-26 15:13 | Progress Note-Post Operative ---
Post-Operative Progess Note Surgeon (s)/Ac/Dc Rewinder (s) Surgeon LUIS PEARSON MD Ac/Dc Rewinder: none Pre-Operative Diagnosis PUD/gastritis, nausea/vomiting Post-Operative Diagnosis reflux esophagitis(stage 2), moderate-severe gastritis, small antral erosion. Procedure & Operative Findings Date of Procedure 08/26/20 Procedure Performed/Findings EGD with bx. Anesthesia Type mac Estimated Blood Loss Estimated blood loss (mL): minimal Specimens/Packing Specimens Removed ge jxn, antrum LUIS PEARSON MD Aug 26, 2020 15:13
--- NOTE | 2020-08-26 15:29 | Anesthesia-General Post-Op ---
MAC Patient Condition Mental Status/LOC: Same as Preop Cardiovascular: Satisfactory Nausea/Vomiting: Absent Respiratory: Satisfactory Pain: Controlled Complications: Absent Post Op Complications Complications None Follow Up Care/Instructions Patient Instructions None needed. Anesthesiology Discharge Order Discharge Order Patient is doing well, no complaints, stable vital signs, no apparent adverse anesthesia problems. PARVEEN LEE DO Aug 26, 2020 15:29
[2020-08-26] MEDS: METOCLOPRAMIDE INJ 10 MG/2 ML (REGLAN) IVP PRN (16:23)
[2020-08-26] MEDS ORDERED: LORazepam 1 MG (ATIVAN) TAB PO PRN (20:30)
[2020-08-26] MEDS ORDERED: LORazepam INJ 2 MG/ML (ATIVAN) VIAL IV PRN (20:30)
--- NOTE | 2020-08-26 20:31 | OPERATIVE REPORT ---
DATE OF SERVICE: 08/24/2020 ATTENDING PRIMARY UTILIZATION MANAGER: [facility]. ADMITTING PHYSICIAN: Dr. Phan. PREOPERATIVE DIAGNOSIS: Persistent nausea and vomiting. POSTOPERATIVE DIAGNOSES: Reflux esophagitis stage II, moderate to severe diffuse gastritis with a small antral erosion. No distal obstructions. PROCEDURE: EGD with biopsy. SURGEON: Luis Pearson MD. ANESTHESIA: Monitored anesthesia care. ESTIMATED BLOOD LOSS: Minimal. FINDINGS: Reflux esophagitis stage II, moderate to severe diffuse gastritis with a small antral erosion. No distal obstructions. DISPOSITION: The patient tolerated the procedure well. INDICATIONS: The patient is a 35-year-old male who presented with persistent nausea and vomiting. He states that he has had this before in the fall and underwent a laparoscopic cholecystectomy and then he states that his symptoms did improve; however, he has had reoccurrence of symptoms. He does have some risk factors for peptic ulcer disease including drinking significant amounts of caffeinated beverages as well as energy drinks. He also does use THC regularly. DESCRIPTION OF PROCEDURE: The patient was brought to the endoscopy suite, laid in the left lateral decubitus position with head slightly elevated. After adequate IV pain and sedative medications and monitored anesthesia care, the mouthpiece was applied. The endoscope was placed in the mouth, visualizing the pharynx and hypopharyngeal region. Vocal cords, epiglottis and vallecula identified and appeared to be normal. The endoscope was then gently intubated in esophageal opening and esophagus insufflated. The endoscope was then advanced to the first, second and third portions of esophagus at the level of the GE junction, reflux esophagitis stage II identified. There were no ulcers or strictures identified in this region. A biopsy was taken with forceps with visualization of good hemostasis. The endoscope was then advanced in the stomach and endoscope retroflexed visualizing no significant hiatal hernia. There was a diffuse gastritis noted throughout the majority of the stomach, which was moderate to severe in nature. There was also a small antral erosion. A biopsy was taken of the stomach antrum to rule out H. pylori with visualization of good hemostasis. The endoscope was then advanced through the pylorus and the first and second portions of the duodenum, which appeared normal with no distal obstructions. The endoscope was then slowly withdrawn while taking a second look and suctioning of residual air with no additional findings. At this time, we feel that his nausea and vomiting is related to moderate to severe gastritis and we will continue with PPI acid sheet metal former on a b.i.d. basis as well as Carafate. We will also recommend that he proceed with the necessary lifestyle and diet accommodation including cessation of any type of smoking as well as avoidance of caffeinated beverages and energy drinks as well as spicy, greasy and acidic foods. Job ID: [id number] DocumentID: [id number] Dictated Date: 08/26/2020 15:06:57 Drapery Head Former Date: 08/26/2020 20:31:00 Dictated By: LUIS PEARSON MD
[2020-08-27 00:22] VITALS: BP 120/68
[2020-08-27] MEDS: HYDROcodone/APAP 5 MG/325 MG (LORTAB) TAB PO PRN ×3 (02:43→14:18)
[2020-08-27] MEDS: ONDANSETRON 4 MG/2 ML (SDV) Z0FRAN IV PRN (02:43)
[2020-08-27 03:09] VITALS: BP 150/83
[2020-08-27] MEDS: METOCLOPRAMIDE INJ 10 MG/2 ML (REGLAN) IVP PRN ×2 (03:33→09:54)
[2020-08-27] MEDS: fentaNYL INJ 100 MCG/2 ML AMP IVP PRN ×2 (03:40→05:53)
[2020-08-27] MEDS: SUCRALFATE 1 GM (CARAFATE) TAB PO SCH ×2 (05:40→12:55)
[2020-08-27] MEDS: inSUlin ASPART (NovoLOG) 1 UNIT/0.01 ML (CHARGE PER UNIT) SC SCH ×2 (05:44→09:56)
[2020-08-27 06:00] LABS: BASOPHILS # (AUTO) 0.1 10^3/uL (0.0-0.1); BASOPHILS % (AUTO) 1 % (0-10); EOSINOPHILS # (AUTO) 0.1 10^3/uL (0.0-0.3); EOSINOPHILS % (AUTO) 1 % (0-10); HEMATOCRIT 36 % (40-54); LYMPHOCYTES # (AUTO) 2.4 10^3/uL (1.0-4.0); LYMPHOCYTES % (AUTO) 26 % (12-44); MEAN CORPUSCULAR HEMOGLOBIN 29 pg (25-34); MEAN CORPUSCULAR HGB CONC 33 g/dL (32-36); MEAN CORPUSCULAR VOLUME 87 fL (80-99); MEAN PLATELET VOLUME 9.8 fL (9.0-12.2); MONOCYTES # (AUTO) 0.5 10^3/uL (0.0-1.0); MONOCYTES % (AUTO) 6 % (0-12); NEUTROPHILS % (AUTO) 66 % (42-75); PLATELET COUNT 196 10^3/uL (130-400); WHITE BLOOD COUNT 9.1 10^3/uL (4.3-11.0)
[2020-08-27 06:09] LABS: ALBUMIN 3.1 GM/DL (3.2-4.5); CHLORIDE 100 MMOL/L (98-107); POTASSIUM 3.9 MMOL/L (3.6-5.0); SODIUM 133 MMOL/L (135-145)
[2020-08-27 06:10] LABS: CALCIUM 7.7 MG/DL (8.5-10.1)
[2020-08-27 06:12] LABS: GLUCOSE 288 MG/DL (70-105)
[2020-08-27 06:13] LABS: BILIRUBIN,TOTAL 0.6 MG/DL (0.1-1.0); CARBON DIOXIDE 25 MMOL/L (21-32)
[2020-08-27 06:15] LABS: ALKALINE PHOSPHATASE 64 U/L (40-136); CREATININE SERUM 0.82 MG/DL (0.60-1.30); GFR ESTIMATED > 60
[2020-08-27 06:16] LABS: BUN/CREATININE RATIO 13
[2020-08-27 06:18] LABS: ALANINE AMINOTRANSFERASE 17 U/L (0-55)
[2020-08-27] MEDS ORDERED: SUCR1TAB PO (06:24)
[2020-08-27] MEDS ORDERED: METO-310 PO (06:24)
[2020-08-27] MEDS ORDERED: PANT40TA2 PO (06:24)
--- NOTE | 2020-08-27 06:25 | Discharge Summary ---
Discharge Summary Hospital Course Was the Problem List Reviewed?: Yes Problems/Dx: (1) Nausea & vomiting Status: Acute Qualifiers: Qualified Codes: R11.2 - Nausea with vomiting, unspecified (2) Epigastric pain Status: Acute (3) Noncompliance Status: Chronic (4) Diabetic peripheral neuropathy Status: Chronic (5) Marijuana use Status: Chronic (6) Hypomagnesemia Status: Acute (7) Diabetes mellitus, insulin dependent (IDDM), uncontrolled Status: Chronic Hospital Course Date of Admission: Aug 24, 2020 at 09:52 Admission Diagnosis : Family Physician/Provider: Center/k,[facility] Date of Discharge: 08/27/20 Discharge Diagnosis: N/V, s/p EGD, gastroparesis from DM, non-compliance, severe hyperglycemia Hospital Course: Uneventful but lengthy course after admitted for severe refractory N/V. Patient placed on IVF and surgery consulted and Dr Ca performed EGD revealing some ulcerations. PPI and Carafate initiated. Hyperglycemia managed with increased insulin and all electrolytes replaced and patient was deemed stable for DC. Labs and Pending Lab Test: Laboratory Tests 08/26/20 07:24: Glucometer 140H 08/26/20 09:36: Glucometer 176H 08/26/20 15:56: Glucometer 348H 08/26/20 19:58: Glucometer 313H 08/27/20 05:40: White Blood Count 9.1, Red Blood Count 4.15L, Hemoglobin 12.0L, Hematocrit 36L, Mean Corpuscular Volume 87, Mean Corpuscular Hemoglobin 29, Mean Corpuscular Hemoglobin Concent 33, Red Cell Distribution Width 12.0, Platelet Count 196, Mean Platelet Volume 9.8, Immature Granulocyte % (Auto) 0, Neutrophils (%) (Auto) 66, Lymphocytes (%) (Auto) 26, Monocytes (%) (Auto) 6, Eosinophils (%) (Auto) 1, Basophils (%) (Auto) 1, Neutrophils # (Auto) 6.0, Lymphocytes # (Auto) 2.4, Monocytes # (Auto) 0.5, Eosinophils # (Auto) 0.1, Basophils # (Auto) 0.1, Immature Granulocyte # (Auto) 0.0, Sodium Level 133L, Potassium Level 3.9, Chloride Level 100, Carbon Dioxide Level 25, Anion Gap 8, Blood Urea Nitrogen 11, Creatinine 0.82, Estimat Glomerular Filtration Rate > 60, BUN/Creatinine Ratio 13, Glucose Level 288H, Calcium Level 7.7L, Corrected Calcium 8.4L, Total Bilirubin 0.6, Aspartate Amino Transf (AST/SGOT) 13, Alanine Aminotransferase (ALT/SGPT) 17, Alkaline Phosphatase 64, Total Protein 5.0L, Albumin 3.1L Home Meds Active Reglan (Metoclopramide HCl) 10 Mg Tablet 10 Mg PO ACHS Protonix (Pantoprazole Sodium) 40 Mg Tablet.dr 40 Mg PO DAILY Sucralfate 1 Gm Tablet 1 Gm PO ACHS Reported Tylenol Extra Strength (Acetaminophen) 500 Mg Tablet 1,000 Mg PO Q6H PRN Multivitamin 1 Each Tablet 1 Each PO DAILY Lantus (Insulin Glargine,Hum.rec.anlog) 100 Unit/1 Ml Vial 40 Unit SQ HS Novolog (Insulin Aspart) 100 Unit/1 Ml Susp 5 Unit SQ AC Gabapentin 800 Mg Tablet 800 Mg PO QID Assessment/Pt Instructions PCP 1 week Discharge Planning: <30 minutes discharge planning Discharge Instructions Discharge Diet: Eat Small Frequent Meals, ADA Diet Activity as Tolerated: Yes Discharge Physical Examination Vital Signs Vital Signs Date Time Temp Pulse Resp B/P (MAP) Pulse Ox O2 Delivery O2 Flow Rate FiO2 08/27/20 03:09 36.7 84 18 150/83 (105) 99 Room Air 08/26/20 15:10 10 General Appearance: No Apparent Distress, WD/WN, Chronically ill Respiratory: Lungs Clear Neurologic/Psychiatric: Alert, Oriented x3, No Motor/Sensory Deficits, Normal Mood/Affect Allergies: Coded Allergies: tramadol (Verified Adverse Reaction, Mild, N/V, 12/21/14) Discharge Summary Date of Admission Aug 24, 2020 at 09:52 Date of Discharge Discharge Date: Aug 27, 2020 Admission Diagnosis Consult general surgery Monitor sugar supportive care Discharge Diagnosis Monitor N/V EGD today CARLOS Abel DO Aug 27, 2020 06:25
[2020-08-27 07:53] VITALS: BP 130/68
[2020-08-27] MEDS: PANTOPRAZOLE 40 MG (PROTONIX) VIAL IV SCH (09:54)
[2020-08-27] MEDS: FAMOTIDINE 20MG/2ML IV (PEPCID) IV SCH (09:54)
[2020-08-27 12:03] VITALS: BP 150/64
[2020-08-27] MEDS ORDERED: OXC5T PO (12:09)
--- NOTE | 2020-08-27 13:25 | Progress Note ---
Subjective Date Seen by a Provider: Aug 27, 2020 Time Seen by a Provider: 12:00 Subjective/Events-last exam doing better. tolerated all of full liquid tray. no nausea/vomiting. Objective Exam Vital Signs Date Time Temp Pulse Resp B/P (MAP) Pulse Ox O2 Delivery O2 Flow Rate FiO2 08/27/20 12:03 37.0 88 20 150/64 (92) 98 Room Air 08/27/20 08:00 Room Air 08/27/20 07:53 36.8 74 22 130/68 (88) 98 Room Air 08/27/20 03:09 36.7 84 18 150/83 (105) 99 Room Air 08/27/20 00:22 36.8 88 18 120/68 (85) 95 Room Air 08/26/20 23:20 97 Room Air 08/26/20 20:00 Room Air 08/26/20 19:07 37.6 86 16 100/53 (69) 98 Room Air 08/26/20 15:54 37.3 89 18 146/81 (102) 97 Room Air 08/26/20 15:10 91 18 100 OxyMask 10 08/26/20 15:05 87 18 100 OxyMask 10 I & O 08/27/20 07:00 Intake Total 2560 ml Balance 2560 ml Capillary Refill : Less Than 3 Seconds General Appearance: No Apparent Distress HEENT: PERRL/EOMI Neck: Full Range of Motion Respiratory: Chest Non Tender, Lungs Clear, Normal Breath Sounds Cardiovascular: Regular Rate, Rhythm Gastrointestinal: normal bowel sounds, non tender, soft Extremity: Normal Capillary Refill Neurologic/Psychiatric: Alert, Oriented x3 Skin: Normal Color Lymphatic: No Adenopathy Results Lab Laboratory Tests 08/26/20 15:56: Glucometer 348H 08/26/20 19:58: Glucometer 313H 08/27/20 05:38: Glucometer 262H 08/27/20 05:40: White Blood Count 9.1, Red Blood Count 4.15L, Hemoglobin 12.0L, Hematocrit 36L, Mean Corpuscular Volume 87, Mean Corpuscular Hemoglobin 29, Mean Corpuscular Hemoglobin Concent 33, Red Cell Distribution Width 12.0, Platelet Count 196, Mean Platelet Volume 9.8, Immature Granulocyte % (Auto) 0, Neutrophils (%) (Auto) 66, Lymphocytes (%) (Auto) 26, Monocytes (%) (Auto) 6, Eosinophils (%) (Auto) 1, Basophils (%) (Auto) 1, Neutrophils # (Auto) 6.0, Lymphocytes # (Auto) 2.4, Monocytes # (Auto) 0.5, Eosinophils # (Auto) 0.1, Basophils # (Auto) 0.1, Immature Granulocyte # (Auto) 0.0, Sodium Level 133L, Potassium Level 3.9, Chloride Level 100, Carbon Dioxide Level 25, Anion Gap 8, Blood Urea Nitrogen 11, Creatinine 0.82, Estimat Glomerular Filtration Rate > 60, BUN/Creatinine Ratio 13, Glucose Level 288H, Calcium Level 7.7L, Corrected Calcium 8.4L, Total Bilirubin 0.6, Aspartate Amino Transf (AST/SGOT) 13, Alanine Aminotransferase (ALT/SGPT) 17, Alkaline Phosphatase 64, Total Protein 5.0L, Albumin 3.1L 08/27/20 09:56: Glucometer 256H Assessment/Plan Assessment/Plan Assess & Plan/Chief Complaint PUD/gastritis with nausea/vomiting. diffuse gastritis on EGD. recommend PPI daily for at least 3 months and carafate 2 weeks. also recommend dietary and lifesyle change. ok for home. LUIS PEARSON MD Aug 27, 2020 13:25
== END 2020-08-27 14:54 | disposition home or self-care (01) ==
LOC: EDUNIT# 07:21 → ER 07:23 → UNDOADMOB 09:52 → 4TH 09:52 → SDC 11:31 → 4TH 11:31 → SDC 08-27 14:54 → UNDODISOB 08-27 14:54
PROVIDERS: ATTEND Internal Medicine
DX: K29.50 Unspecified chronic gastritis without bleeding (principal); K21.00 Gastro-esophageal reflux disease with esophagitis, without bleeding; E11.40 Type 2 diabetes mellitus with diabetic neuropathy, unspecified; E83.42 Hypomagnesemia; I10 Essential (primary) hypertension; J44.9 Chronic obstructive pulmonary disease, unspecified; G89.29 Other chronic pain; M54.9 Dorsalgia, unspecified; M19.90 Unspecified osteoarthritis, unspecified site; M41.9 Scoliosis, unspecified; Z79.899 Other long term (current) drug therapy; Z79.4 Long term (current) use of insulin; Z88.5 Allergy status to narcotic agent; Z87.891 Personal history of nicotine dependence; Z20.822 Contact with and (suspected) exposure to COVID-19
CPT/HCPCS: 43239; 74019; 80053 ×4; 80306; 81000; 82962 ×4; 83690; 85025 ×4; 88305; 94760; 96361; 96372; 96374; 96375; 97161; 99284; G0378; U0002; 36415; 87635

== ENCOUNTER 2020-09-15 12:59 | Emergency (ER) | payer SELFPAY ==
[~2020-09-15] VITALS: Ht 177.8 cm; Wt 95.2 kg
[~2020-09-15 12:59] MED LIST changes: +ACET-2267 PO; +INSU100V16 SQ; +METO-310 PO; +MULT-1136 PO; +PANT40TA2 PO; +SUCR1TAB PO
[2020-09-15 13:55] LABS: BASOPHILS # (AUTO) 0.1 10^3/uL (0.0-0.1); BASOPHILS % (AUTO) 1 % (0-10); EOSINOPHILS # (AUTO) 0.2 10^3/uL (0.0-0.3); EOSINOPHILS % (AUTO) 4 % (0-10); HEMATOCRIT 40 % (40-54); HEMOGLOBIN 13.4 g/dL (13.3-17.7); LYMPHOCYTES # (AUTO) 1.6 10^3/uL (1.0-4.0); LYMPHOCYTES % (AUTO) 31 % (12-44); MEAN CORPUSCULAR HEMOGLOBIN 29 pg (25-34); MEAN CORPUSCULAR HGB CONC 33 g/dL (32-36); MEAN CORPUSCULAR VOLUME 88 fL (80-99); MEAN PLATELET VOLUME 9.5 fL (9.0-12.2); MONOCYTES # (AUTO) 0.3 10^3/uL (0.0-1.0); MONOCYTES % (AUTO) 6 % (0-12); NEUTROPHILS % (AUTO) 57 % (42-75); PLATELET COUNT 174 10^3/uL (130-400); WHITE BLOOD COUNT 5.3 10^3/uL (4.3-11.0)
[2020-09-15] MEDS ORDERED: ONDANSETRON 4 MG/2 ML (SDV) Z0FRAN IVP ONE (14:00)
[2020-09-15] MEDS ORDERED: FAMOTIDINE 20MG/2ML IV (PEPCID) IVP ONE (14:00)
[2020-09-15] MEDS ORDERED: inSUlin (REGULAR) HUMAN 1 UNIT/0.01 ML (CHARGE PER UNIT) SC ONE (14:00)
[2020-09-15] MEDS ORDERED: NS IV 1000 ML 1,000 ML IV SCH (14:00)
[2020-09-15 14:04] LABS: BILIRUBIN,URINE NEGATIVE (NEGATIVE); CLARITY,URINE CLEAR; COLOR,URINE YELLOW; GLUCOSE, URINE (UA) 3+ (NEGATIVE); KETONES,URINE 2+ (NEGATIVE); LEUKOCYTE ESTERASE ,URINE NEGATIVE (NEGATIVE); NITRITE,URINE NEGATIVE (NEGATIVE); PH,URINE 5.5 (5-9); PROTEIN,URINE NEGATIVE (NEGATIVE)
[2020-09-15 14:05] LABS: ALBUMIN 4.3 GM/DL (3.2-4.5); CHLORIDE 95 MMOL/L (98-107); POTASSIUM 4.5 MMOL/L (3.6-5.0); SODIUM 133 MMOL/L (135-145)
[2020-09-15 14:06] LABS: CALCIUM 8.9 MG/DL (8.5-10.1)
[2020-09-15 14:08] LABS: TOTAL PROTEIN 7.1 GM/DL (6.4-8.2)
[2020-09-15 14:09] LABS: CARBON DIOXIDE 25 MMOL/L (21-32)
[2020-09-15 14:11] LABS: ALKALINE PHOSPHATASE 128 U/L (40-136); CREATININE SERUM 1.02 MG/DL (0.60-1.30); GFR ESTIMATED > 60
[2020-09-15 14:12] LABS: BUN/CREATININE RATIO 15
[2020-09-15 14:14] LABS: ALANINE AMINOTRANSFERASE 34 U/L (0-55); MAGNESIUM 1.7 MG/DL (1.6-2.4)
[2020-09-15 14:15] LABS: BACTERIA,URINE NEGATIVE /HPF
[2020-09-15 14:18] LABS: GLUCOSE 476 MG/DL (70-105)
[2020-09-15] MEDS ORDERED: LIDOCAINE 2% VISCOUS 15 ML UDC PO ONE (14:30)
[2020-09-15] MEDS ORDERED: ANTACID SUSP 30 ML UDC (MYLANTA) PO ONE (14:30)
--- NOTE | 2020-09-15 14:50 | Diagnostic Imaging Report ---
INDICATION: Chest pain. TIME OF EXAM: 2:22 p.m. COMPARISON: Correlation is made prior chest of 03/05/2019. FINDINGS: There is some questionable minimal patchy infiltrate at the left base. Otherwise, lungs are clear. The pulmonary vascularity is normal. Heart size is stable. No effusion or pneumothorax. IMPRESSION: Patchy left basilar infiltrate. Dictated by: Dictated on workstation # [id number]
[2020-09-15] MEDS ORDERED: AZIT250T12 PO (16:24)
--- NOTE | 2020-09-15 16:25 | ED General ---
General Chief Complaint: Chest Pain Stated Complaint: THINKS DKA Nursing Triage Note: Pt ambulatory into ER with complaint of burning in chest for 1 hour. He states that he also vomited when this started. Pt states that he took his home nausea medication and that helped. Pt states that he is also having issues with his Blood Sugars since his covid vaccines. He states that his BS is high even without eating and taking his insulin. Nursing Sepsis Screen: No Definite Risk Source of Information: Patient Exam Limitations: No Limitations History of Present Illness Date Seen by Provider: Sep 15, 2020 Time Seen by Provider: 13:01 Initial Comments This 35-year-old young man with type 1 diabetes and recent diagnosis of esophagitis and gastritis with erosions by EGD presents to the emergency room wi th vomiting followed by a chest pain and tightness. He reports having high blood sugars since his Covid vaccine on September 10. He is afebrile. He wonders if he may be developing DKA. He denies any recent drug or alcohol use. He reports compliance with his insulin. Allergies and Home Medications Allergies Coded Allergies: tramadol (Verified Adverse Reaction, Mild, N/V, 12/21/14) Home Medications Acetaminophen 500 Mg Tablet, 1,000 MG PO Q6H PRN for PAIN-MILD (1-4), (Reported) Azithromycin 250 Mg Tablet, 250 MG PO DAILY Prescribed by: GRIFFIN MURO on 09/15/20 1624 Gabapentin 800 Mg Tablet, 800 MG PO QID, (Reported) Insulin Aspart 100 Unit/1 Ml Susp, 5 UNIT SQ AC, (Reported) Insulin Glargine,Hum.rec.anlog 100 Unit/1 Ml Vial, 40 UNIT SQ HS, (Reported) Metoclopramide HCl 10 Mg Tablet, 10 MG PO ACHS Prescribed by: CARLOS MCLEAN on 08/27/20623 Multivitamin 1 Each Tablet, 1 EACH PO DAILY, (Reported) Oxycodone Hcl 5 Mg Tab, 5 MG PO TID PRN for PAIN-SEVERE (8-10) Prescribed by: CARLOS MCLEAN on 08/27/20 1209 Pantoprazole Sodium 40 Mg Tablet.dr, 40 MG PO DAILY Prescribed by: CARLOS MCLEAN on 08/27/20623 Sucralfate 1 Gm Tablet, 1 GM PO ACHS Prescribed by: CARLOS MCLEAN on 08/27/20623 Patient Home Medication List Home Medication List Reviewed: Yes Review of Systems Review of Systems Constitutional: no symptoms reported EENTM: no symptoms reported Respiratory: no symptoms reported Cardiovascular: see HPI Gastrointestinal: see HPI Genitourinary: no symptoms reported Musculoskeletal: no symptoms reported Skin: no symptoms reported Psychiatric/Neurological: No Symptoms Reported Hematologic/Lymphatic: No Symptoms Reported Immunological/Allergic: no symptoms reported Past Akkbgze-Iisqfr-Gllwjv Hx Past Med/Social Hx: Reviewed Nursing Past Med/Soc Hx Patient Social History Alcohol Use: Denies Use Drug of Choice: POT Type Used: Smokeless Tobacco Former Smoker, Quit: Aug 14, 2017 2nd Hand Smoke Exposure: No Recent Infectious Disease Expo: No Recent Hopitalizations: No Immunizations Up To Date Tetanus Booster (TDap): Unknown Date of Pneumonia Vaccine: Aug 27, 2011 Date of Influenza Vaccine: Mar 04, 2019 Seasonal Allergies Seasonal Allergies: No Past Medical History Surgeries: Yes Gallbladder Respiratory: Yes (copd dx by patient) COPD Currently Using CPAP: No Currently Using BIPAP: No Cardiac: Yes Hypertension Neurological: Yes Neuropathy Reproductive Disorders: No Sexually Transmitted Disease: No HIV/AIDS: No Genitourinary: No Kidney Infection Gastrointestinal: Yes (ELEVATED LIVER ENZYMES, Hep A) Liver Disease/Jaundice Musculoskeletal: Yes Arthritis, Scoliosis, Chronic Back Pain Endocrine: Yes (Type I) Diabetes, Insulin dep HEENT: No Hearing Impairment: Denies Cancer: No Psychosocial: Yes (POLYSUBSTANCE ABUSE) Depression Integumentary: No Blood Disorders: No Adverse Reaction/Blood Tranf: No Family Medical History Alcoholism 19 FATHER G8 BROTHER Congenital heart disease 19 FATHER Family history: Cardiovascular disease 19 FATHER, Onset:40's - 50 Family history: Diabetes mellitus 19 MOTHER Family history: Hypertension 19 FATHER Heart disease 19 FATHER History of - respiratory disease 19 FATHER History of drug abuse 19 MOTHER Hypercholesterolemia 19 FATHER Myocardial infarction 19 FATHER Seizure disorder 19 FATHER No Family History of: Abdominal aortic aneurysm Curry's disease Cancer Congestive heart failure Cystic fibrosis Dementia Dysphagia Family history: Allergy Family history: Alzheimer's disease Family history: Arthritis Family history: Asthma Family history: Breast disease Family history: Coronary thrombosis Family history: Gastrointestinal disease Family history: Glaucoma Family history: Osteoporosis Family history: Thyroid disorder Headache Hearing loss Hereditary disease History of - anemia History of - disorder Human immunodeficiency virus (HIV) seropositivity Infertile Kidney disease Malignant neoplasm of lung Parkinson's disease Prostate cancer Psychotic disorder Stroke Tuberculosis Visual impairment No Pertinent Family Hx Physical Exam Vital Signs Vital Signs - First Documented Capillary Refill : Less Than 3 Seconds Height, Weight, BMI Height: 5'10.00" Weight: 240lbs. 0oz. 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 Skin: Normal Color, Warm/Dry Progress/Results/Core Measures Suspected Sepsis Recent Fever Within 48 Hours: No Infection Criteria Present: None New/Unexplained Altered Menta: No Sepsis Screen: No Definite Risk SIRS Temperature: Pulse: 79 Respiratory Rate: 20 Laboratory Tests 09/15/20 13:45: White Blood Count 5.3 Blood Pressure 130 /80 Mean: 97 Laboratory Tests 09/15/20 13:45: Creatinine 1.02, INR Comment 1.0, Platelet Count 174, Total Bilirubin 1.0 Results/Orders Lab Results Laboratory Tests Test 09/15/20 13:29 09/15/20 13:45 09/15/20 14:00 09/15/20 14:56 Range/Units Glucometer 469 *H 312 H 70-110 MG/DL White Blood Count 5.3 4.3-11.0 10^3/uL Red Blood Count 4.59 4.30-5.52 10^6/uL Hemoglobin 13.4 13.3-17.7 g/dL Hematocrit 40 40-54 % Mean Corpuscular Volume 88 80-99 fL Mean Corpuscular Hemoglobin 29 25-34 pg Mean Corpuscular Hemoglobin Concent 33 32-36 g/dL Red Cell Distribution Width 12.1 10.0-14.5 % Platelet Count 174 130-400 10^3/uL Mean Platelet Volume 9.5 9.0-12.2 fL Immature Granulocyte % (Auto) 0 % Neutrophils (%) (Auto) 57 42-75 % Lymphocytes (%) (Auto) 31 12-44 % Monocytes (%) (Auto) 6 0-12 % Eosinophils (%) (Auto) 4 0-10 % Basophils (%) (Auto) 1 0-10 % Neutrophils # (Auto) 3.0 1.8-7.8 10^3/uL Lymphocytes # (Auto) 1.6 1.0-4.0 10^3/uL Monocytes # (Auto) 0.3 0.0-1.0 10^3/uL Eosinophils # (Auto) 0.2 0.0-0.3 10^3/uL Basophils # (Auto) 0.1 0.0-0.1 10^3/uL Immature Granulocyte # (Auto) 0.0 0.0-0.1 10^3/uL Prothrombin Time 13.0 12.2-14.7 SEC INR Comment 1.0 0.8-1.4 Activated Partial Thromboplast Time 27 24-35 SEC Sodium Level 133 L 135-145 MMOL/L Potassium Level 4.5 3.6-5.0 MMOL/L Chloride Level 95 L 98-107 MMOL/L Carbon Dioxide Level 25 21-32 MMOL/L Anion Gap 13 5-14 MMOL/L Blood Urea Nitrogen 15 7-18 MG/DL Creatinine 1.02 0.60-1.30 MG/DL Estimat Glomerular Filtration Rate > 60 BUN/Creatinine Ratio 15 Glucose Level 476 *H 70-105 MG/DL Calcium Level 8.9 8.5-10.1 MG/DL Corrected Calcium 8.7 8.5-10.1 MG/DL Magnesium Level 1.7 1.6-2.4 MG/DL Total Bilirubin 1.0 0.1-1.0 MG/DL Aspartate Amino Transf (AST/SGOT) 17 5-34 U/L Alanine Aminotransferase (ALT/SGPT) 34 0-55 U/L Alkaline Phosphatase 128 40-136 U/L Myoglobin 36.0 10.0-92.0 NG/ML Troponin I < 0.028 <0.028 NG/ML C-Reactive Protein High Sensitivity 0.16 0.00-0.50 MG/DL Total Protein 7.1 6.4-8.2 GM/DL Albumin 4.3 3.2-4.5 GM/DL Urine Color YELLOW Urine Clarity CLEAR Urine pH 5.5 5-9 Urine Specific [place] 1.015 L 1.016-1.022 Urine Protein NEGATIVE NEGATIVE Urine Glucose (UA) 3+ H NEGATIVE Urine Ketones 2+ H NEGATIVE Urine Nitrite NEGATIVE NEGATIVE Urine Bilirubin NEGATIVE NEGATIVE Urine Urobilinogen 0.2 < = 1.0 MG/DL Urine Leukocyte Esterase NEGATIVE NEGATIVE Urine RBC (Auto) NEGATIVE NEGATIVE Urine RBC NONE /HPF Urine WBC NONE /HPF Urine Crystals NONE /LPF Urine Bacteria NEGATIVE /HPF Urine Casts NONE /LPF Urine Mucus NEGATIVE /LPF Urine Culture Indicated NO Test 09/15/20 15:37 Range/Units Coronavirus 2019 (TIM) Not Detected Not Detecte My Orders Orders - GRIFFIN GUTIERREZ MD Cbc With Automated Diff (09/15/20 13:01) Comprehensive Metabolic Panel (09/15/20 13:01) Magnesium (09/15/20 13:01) Ua Culture If Indicated (09/15/20 13:01) Accucheck Stat ONCE (09/15/20 13:01) Ed Iv/Invasive Line Start (09/15/20 13:01) Chest 1 View, Ap/Pa Only (09/15/20 13:34) Ekg Tracing (09/15/20 13:34) Myoglobin Serum (09/15/20 13:34) Protime With Inr (09/15/20 13:34) Partial Thromboplastin Time (09/15/20 13:34) Monitor-Rhythm Ecg Trace Only (09/15/20 13:34) Troponin I (09/15/20 13:34) Insulin (Regular) Human (Novolin R (Per (09/15/20 14:00) Famotidine Injection (Pepcid Injection) (09/15/20 14:00) Ondansetron Injection (Zofran Injectio (09/15/20 14:00) Ed Iv/Invasive Line Start (09/15/20 13:53) Ns Iv 1000 Ml (Sodium Chloride 0.9%) (09/15/20 14:00) Accucheck Stat ONCE (09/15/20 14:24) Lidocaine 2% Viscous 15 Ml (Xylocaine Vi (09/15/20 14:30) Antacid Suspension (Mylanta Suspension (09/15/20 14:30) Covid 19 Inhouse Test (09/15/20 15:20) Hs C Reactive Protein (09/15/20 15:22) Azithromycin Tablet (Zithromax Tablet) (09/15/20 16:30) Medications Given in ED Vital Signs/I&O 09/15/20 09/15/20 09/15/20 09/15/20 13:10 13:10 13:33 16:34 Temp 36.9 36.9 Pulse 79 79 71 Resp 20 20 19 B/P (MAP) 130/80 (97) 130/80 (97) 116/82 Pulse Ox 99 99 98 O2 Delivery Room Air Room Air Room Air Room Air Capillary Refill : Less Than 3 Seconds Blood Pressure Mean: 97 Point of Care Testing Finger Stick Blood Glucose: 312 Progress Note : Progress Note Patient was initially treated with Pepcid, Zofran, insulin 5 units IV, and a liter of IV normal saline. Blood sugar was trending down nicely. Nausea and vomiting resolved. GI cocktail was then administered which greatly improved his pain. He was ultimately discharged in improved condition. He did not appear in DKA. There was a small patchy infiltrate in the left lower lung. Since this is a high risk patient with type 1 diabetes, azithromycin was prescribed. COVID-19 screening swab was negative. ECG Initial ECG Impression Date: Sep 15, 2020 Initial ECG Impression Time: 13:22 Initial ECG Rate: 72 Initial ECG Rhythm: Normal Sinus Initial ECG Impression: Normal Comment Normal sinus rhythm with no ST elevation or depression. No abnormal intervals or axis deviation. Diagnostic Imaging Diagonstic Imaging: Xray Plain Films/CT/US/NM/MRI: chest Comments Chest x-ray viewed by me and report reviewed. See report below: NAME: LYDIA CARUSO [facility] REC#: [id number] PT STATUS: REG ER : 1985 PHYSICIAN: GRIFFIN GUTIERREZ MD ADMIT DATE: 09/15/20/ER Signed Date of Exam:09/15/20 CHEST 1 VIEW, AP/PA ONLY INDICATION: Chest pain. TIME OF EXAM: 2:22 p.m. COMPARISON: Correlation is made prior chest of 03/05/2019. FINDINGS: There is some questionable minimal patchy infiltrate at the left base. Otherwise, lungs are clear. The pulmonary vascularity is normal. Heart size is stable. No effusion or pneumothorax. IMPRESSION: Patchy left basilar infiltrate. Dictated by: Dictated on workstation # [id number] Dict: 09/15/20 1428 Trans: 09/15/20 1551 [facility] [id number] Interpreted by: JAQUELINE MIJARES MD Electronically signed by: JAQUELINE MIJARES MD 09/15/20 1551 Departure Impression Primary Impression: Atypical chest pain Additional Impressions: Nausea and vomiting Qualified Codes: R11.2 - Nausea with vomiting, unspecified Hyperglycemia Pulmonary infiltrate Disposition: HOME, SELF-CARE Condition: Improved Departure-Patient Inst. Decision time for Depature: 16:21 Referrals: [facility] (PCP/Family) Primary Care Physician Patient Instructions: Acid Reflux and Gastroesophageal Reflux Disease in Adults Add. Discharge Instructions: Crush or dissolve your Carafate in about 5 mL of water and drink as a slurry. This will help coat your esophagus and make the medication more effective. Take about 30 minutes before eating or drinking before your meals and at bedtime. Follow-up with your primary care provider within the near future. Return to care if you have worsening symptoms. Monitor your blood sugars closely. Adjust insulin dosing with guidance from your primary care provider if needed. Avoid the following: Eating large meals, caffeine, carbonation, citrus fruits or juices, tomato products, tobacco, alcohol, acidic foods, spicy foods, mints, chocolate, NSAID medications such as ibuprofen or naproxen, fatty or greasy foods, or anything else you know irritate your stomach. Complete your antibiotic as prescribed. Call with questions or concerns. All discharge instructions reviewed with patient and/or family. Voiced understanding. Scripts Azithromycin (Azithromycin) 250 Mg Tablet 250 MG PO DAILY, #4 TAB 0 Refills Prov: GRIFFIN GUTIERREZ MD 09/15/20 Copy Copies To 1: WESTON DOTY JOSHUA T MD Sep 15, 2020 16:25
[2020-09-15] MEDS ORDERED: AZITHROMYCIN 250 MG TAB (ZITHROMAX) PO ONE (16:30)
[2020-09-15 16:34] VITALS: BP 116/82
== END 2020-09-15 16:34 | disposition home or self-care (01) ==
LOC: EDUNIT# 12:59 → ER 13:00
DX: R07.89 Other chest pain (principal); R11.2 Nausea with vomiting, unspecified; E10.65 Type 1 diabetes mellitus with hyperglycemia; R91.8 Other nonspecific abnormal finding of lung field; G89.29 Other chronic pain; M54.9 Dorsalgia, unspecified; Z88.5 Allergy status to narcotic agent; Z87.891 Personal history of nicotine dependence; Z82.49 Family history of ischemic heart disease and other diseases of the circulatory system; Z79.891 Long term (current) use of opiate analgesic
CPT/HCPCS: 71045; 80053; 81000; 82962; 83735; 83874; 84484; 85025; 85610; 85730; 86141; 93005; 93041; 99284; U0002; 36415; 87635

== ENCOUNTER 2020-11-19 10:34 | Emergency (ER) | payer OTHER ==
[~2020-11-19] VITALS: Ht 175 cm; Wt 88.6 kg
[~2020-11-19 10:34] MED LIST changes: +AZIT250T12 PO
[2020-11-19 11:34] LABS: CHLORIDE 103 MMOL/L (98-107); POTASSIUM 4.4 MMOL/L (3.6-5.0); SODIUM 136 MMOL/L (135-145)
[2020-11-19 11:35] LABS: CALCIUM 8.5 MG/DL (8.5-10.1); GLUCOSE 310 MG/DL (70-105)
[2020-11-19 11:37] LABS: CARBON DIOXIDE 27 MMOL/L (21-32)
[2020-11-19 11:39] LABS: CREATININE SERUM 0.82 MG/DL (0.60-1.30); GFR ESTIMATED > 60
[2020-11-19 11:40] LABS: BUN/CREATININE RATIO 17
--- NOTE | 2020-11-19 12:15 | ED General ---
General Chief Complaint: General Problems/Pain Stated Complaint: SWELLING IN LEGS Nursing Triage Note: AMB TO ROOM WITH C/O OF YUNIOR LEG SWELLING. X 2 DAYS PAIN IN LEGS STARTED THIS AM STATES HAS FEELING OF SKIN BEING STRETCHED Nursing Sepsis Screen: No Definite Risk Source of Information: Patient Exam Limitations: No Limitations History of Present Illness Date Seen by Provider: Nov 19, 2020 Time Seen by Provider: 11:00 Initial Comments Alvaro is a 35-year-old gentleman with type 1 diabetes who presents to the emergency room with complaints of progressive lower extremity edema over the last couple of days. 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 The swelling has become more progressive and is now uncomfortable. He denies any shortness of breath or chest pain. He has not started any new medications or had any other new habits or behaviors. He denies excessive salt consumption. Allergies and Home Medications Allergies Coded Allergies: tramadol (Verified Adverse Reaction, Mild, N/V, 12/21/14) Home Medications Acetaminophen 500 Mg Tablet, 1,000 MG PO Q6H PRN for PAIN-MILD (1-4), (Reported) Azithromycin 250 Mg Tablet, 250 MG PO DAILY Prescribed by: GRIFFIN MURO on 09/15/20 1624 Gabapentin 800 Mg Tablet, 800 MG PO QID, (Reported) Insulin Aspart 100 Unit/1 Ml Susp, 5 UNIT SQ AC, (Reported) Insulin Glargine,Hum.rec.anlog 100 Unit/1 Ml Vial, 40 UNIT SQ HS, (Reported) Metoclopramide HCl 10 Mg Tablet, 10 MG PO ACHS Prescribed by: CARLOS MCLEAN on 08/27/20623 Multivitamin 1 Each Tablet, 1 EACH PO DAILY, (Reported) Oxycodone Hcl 5 Mg Tab, 5 MG PO TID PRN for PAIN-SEVERE (8-10) Prescribed by: CARLOS MCLEAN on 08/27/20 1209 Pantoprazole Sodium 40 Mg Tablet.dr, 40 MG PO DAILY Prescribed by: CARLOS MCLEAN on 08/27/20623 Sucralfate 1 Gm Tablet, 1 GM PO ACHS Prescribed by: CARLOS MCLEAN on 08/27/20623 Patient Home Medication List Home Medication List Reviewed: Yes Review of Systems Review of Systems Constitutional: no symptoms reported EENTM: no symptoms reported Respiratory: no symptoms reported Cardiovascular: see HPI Gastrointestinal: no symptoms reported Genitourinary: no symptoms reported Musculoskeletal: see HPI Skin: no symptoms reported Psychiatric/Neurological: No Symptoms Reported Hematologic/Lymphatic: No Symptoms Reported Past Ravpwph-Fsembn-Ofvlly Hx Past Med/Social Hx: Reviewed Nursing Past Med/Soc Hx Patient Social History Alcohol Use: Denies Use Drug of Choice: POT Smoking Status: Never a Smoker Type Used: Smokeless Tobacco Former Smoker, Quit: Aug 14, 2017 2nd Hand Smoke Exposure: No Recent Infectious Disease Expo: No Recent Hopitalizations: No Immunizations Up To Date Tetanus Booster (TDap): Unknown Date of Pneumonia Vaccine: Aug 27, 2011 Date of Influenza Vaccine: Mar 04, 2019 Seasonal Allergies Seasonal Allergies: No Past Medical History Surgeries: Yes Gallbladder Respiratory: Yes (copd dx by patient) COPD Currently Using CPAP: No Currently Using BIPAP: No Cardiac: Yes Hypertension Neurological: Yes Neuropathy Reproductive Disorders: No Sexually Transmitted Disease: No HIV/AIDS: No Genitourinary: No Kidney Infection Gastrointestinal: Yes (ELEVATED LIVER ENZYMES, Hep A) Liver Disease/Jaundice Musculoskeletal: Yes Arthritis, Scoliosis, Chronic Back Pain Endocrine: Yes (Type I) Diabetes, Insulin dep HEENT: No Hearing Impairment: Denies Cancer: No Psychosocial: Yes (POLYSUBSTANCE ABUSE) Depression Integumentary: No Blood Disorders: No Adverse Reaction/Blood Tranf: No Family Medical History Alcoholism 19 FATHER G8 BROTHER Congenital heart disease 19 FATHER Family history: Cardiovascular disease 19 FATHER, Onset:40's - 50 Family history: Diabetes mellitus 19 MOTHER Family history: Hypertension 19 FATHER Heart disease 19 FATHER History of - respiratory disease 19 FATHER History of drug abuse 19 MOTHER Hypercholesterolemia 19 FATHER Myocardial infarction 19 FATHER Seizure disorder 19 FATHER No Family History of: Abdominal aortic aneurysm Markos's disease Cancer Congestive heart failure Cystic fibrosis Dementia Dysphagia Family history: Allergy Family history: Alzheimer's disease Family history: Arthritis Family history: Asthma Family history: Breast disease Family history: Coronary thrombosis Family history: Gastrointestinal disease Family history: Glaucoma Family history: Osteoporosis Family history: Thyroid disorder Headache Hearing loss Hereditary disease History of - anemia History of - disorder Human immunodeficiency virus (HIV) seropositivity Infertile Kidney disease Malignant neoplasm of lung Parkinson's disease Prostate cancer Psychotic disorder Stroke Tuberculosis Visual impairment No Pertinent Family Hx Physical Exam Vital Signs Vital Signs - First Documented 11/19/20 10:41 Temp 36.3 Pulse 73 Resp 18 B/P (MAP) 126/80 (95) Pulse Ox 97 O2 Delivery Room Air Capillary Refill : Less Than 3 Seconds Height, Weight, BMI Height: 5'10.00" Weight: 240lbs. 0oz. 108.043678rb; 28.00 BMI Method:Stated General Appearance: No Apparent Distress, WD/WN HEENT: PERRL/EOMI, Normal ENT Inspection Neck: Normal Inspection Respiratory: Lungs Clear, Normal Breath Sounds, No Accessory Muscle Use Cardiovascular: Regular Rate, Rhythm, No Murmur, Other (Moderate pitting edema of the lower extremities, left slightly greater than right. Tenderness in the calves) Extremity: Swelling, Other (Moderate pitting edema of the lower extremities, left slightly greater than right. 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 Skin: Normal Color, Warm/Dry Progress/Results/Core Measures Suspected Sepsis Recent Fever Within 48 Hours: No Infection Criteria Present: None New/Unexplained Altered Menta: No Sepsis Screen: No Definite Risk SIRS Temperature: Pulse: 73 Respiratory Rate: 18 Blood Pressure 126 /80 Mean: 95 Laboratory Tests 11/19/20 11:19: Creatinine 0.82 Results/Orders Lab Results Laboratory Tests Test 11/19/20 11:19 Range/Units D-Dimer 0.35 0.00-0.49 UG/ML Sodium Level 136 135-145 MMOL/L Potassium Level 4.4 3.6-5.0 MMOL/L Chloride Level 103 98-107 MMOL/L Carbon Dioxide Level 27 21-32 MMOL/L Anion Gap 6 5-14 MMOL/L Blood Urea Nitrogen 14 7-18 MG/DL Creatinine 0.82 0.60-1.30 MG/DL Estimat Glomerular Filtration Rate > 60 BUN/Creatinine Ratio 17 Glucose Level 310 H 70-105 MG/DL Calcium Level 8.5 8.5-10.1 MG/DL B-Type Natriuretic Peptide 107.0 H <100.0 PG/ML My Orders Orders - GRIFFIN GUTIERREZ MD Basic Metabolic Panel (11/19/20 11:03) BNP (11/19/20 11:03) Fibrin Degradation Products (11/19/20 11:03) Vital Signs/I&O 11/19/20 11/19/20 10:41 12:32 Temp 36.3 Pulse 73 54 Resp 18 18 B/P (MAP) 126/80 (95) 120/80 Pulse Ox 97 98 O2 Delivery Room Air Room Air Capillary Refill : Less Than 3 Seconds Blood Pressure Mean: 95 Progress Note : Progress Note BNP and D-dimer were unremarkable. Chemistry was also unremarkable. Edema appears dependent in nature. We discussed strategies for managing edema with compression stockings, elevation, salt restriction, etc. Departure Impression Primary Impression: Dependent edema Disposition: HOME, SELF-CARE Condition: Stable Departure-Patient Inst. Referrals: [facility] (PCP/Family) Primary Care Physician Patient Instructions: Dependent Edema (DC) Add. Discharge Instructions: Elevate your feet above the level of your heart as often as possible. Avoid excessive salt intake. Wear compression stockings up to 12 hours during the day and remove in the evening. Follow-up with your primary care provider for further evaluation within the next couple of weeks. Call with questions or concerns. Return to the ER if you have worsening symptoms. All discharge instructions reviewed with patient and/or family. Voiced understanding. Work/School Note: Work Release Form Date Seen in the Emergency Department: Nov 19, 2020 Return to Work: Nov 19, 2020 Other Restrictions Listed Below: Elevate feet as often as possible. Wear compression stockings when possibl Copy Copies To 1: WESTON DOTY JOSHUA T MD Nov 19, 2020 12:15
[2020-11-19 12:32] VITALS: BP 120/80
== END 2020-11-19 12:38 | disposition home or self-care (01) ==
LOC: EDUNIT# 10:34 → ER 10:37
DX: R60.9 Edema, unspecified (principal); J44.9 Chronic obstructive pulmonary disease, unspecified; E10.9 Type 1 diabetes mellitus without complications; G89.29 Other chronic pain; M54.9 Dorsalgia, unspecified; Z87.891 Personal history of nicotine dependence; Z79.891 Long term (current) use of opiate analgesic; Z79.899 Other long term (current) drug therapy
CPT/HCPCS: 36415; 80048; 83880; 85379

== ENCOUNTER 2020-12-29 14:59 | Emergency (ER) | payer SELFPAY ==
[~2020-12-29] VITALS: Ht 177.8 cm; Wt 90.0 kg
--- NOTE | 2020-12-29 15:11 | ED General ---
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 Went home and took a nap but awakened to still feel nauseated. Timing/Duration: 1-3 Hours Severity: Moderate Associated Systoms: Nausea/Vomiting (ZACHERY BAKER APRN) Allergies and Home Medications Allergies Coded Allergies: tramadol (Verified Adverse Reaction, Mild, N/V, 12/21/14) Home Medications Acetaminophen 500 Mg Tablet, 1,000 MG PO Q6H PRN for PAIN-MILD (1-4), (Reported) Azithromycin 250 Mg Tablet, 250 MG PO DAILY Prescribed by: GRIFIFN MURO on 09/15/20 1624 Gabapentin 800 Mg Tablet, 800 MG PO QID, (Reported) Insulin Aspart 100 Unit/1 Ml Susp, 5 UNIT SQ AC, (Reported) Insulin Glargine,Hum.rec.anlog 100 Unit/1 Ml Vial, 40 UNIT SQ HS, (Reported) Metoclopramide HCl 10 Mg Tablet, 10 MG PO ACHS Prescribed by: CARLOS MCLEAN on 08/27/20623 Multivitamin 1 Each Tablet, 1 EACH PO DAILY, (Reported) Oxycodone Hcl 5 Mg Tab, 5 MG PO TID PRN for PAIN-SEVERE (8-10) Prescribed by: CARLOS MCLEAN on 08/27/20 1209 Pantoprazole Sodium 40 Mg Tablet.dr, 40 MG PO DAILY Prescribed by: CARLOS MCLEAN on 08/27/20623 Sucralfate 1 Gm Tablet, 1 GM PO ACHS Prescribed by: CARLOS MCLEAN on 08/27/20623 Patient Home Medication List Home Medication List Reviewed: Yes (ZACHERY BAKER APRN) Review of Systems Review of Systems Constitutional: see HPI; No chills, No dizziness, No fever; malaise EENTM: see HPI Respiratory: no symptoms reported; No cough, No dyspnea on exertion, No phlegm, No short of breath Cardiovascular: no symptoms reported Gastrointestinal: No abdominal pain, No diarrhea; nausea; No vomiting Genitourinary: no symptoms reported Musculoskeletal: no symptoms reported Skin: no symptoms reported Psychiatric/Neurological: No Symptoms Reported Hematologic/Lymphatic: No Symptoms Reported Immunological/Allergic: no symptoms reported (ZACHERY BAKER APRN) Past Pffurgi-Jymmon-Aftqlf Hx Immunizations Up To Date Tetanus Booster (TDap): Unknown (ZACHERY BAKER APRN) Seasonal Allergies Seasonal Allergies: No (ZACHERY BAKER APRN) Past Medical History Surgeries: Yes Gallbladder Respiratory: Yes (copd dx by patient) COPD Currently Using CPAP: No Currently Using BIPAP: No Cardiac: Yes Hypertension Neurological: Yes Neuropathy Reproductive Disorders: No Sexually Transmitted Disease: No HIV/AIDS: No Genitourinary: No Kidney Infection Gastrointestinal: Yes (ELEVATED LIVER ENZYMES, Hep A) Liver Disease/Jaundice Musculoskeletal: Yes Arthritis, Scoliosis, Chronic Back Pain Endocrine: Yes (Type I) Diabetes, Insulin dep HEENT: No Hearing Impairment: Denies Cancer: No Psychosocial: Yes (POLYSUBSTANCE ABUSE) Depression Integumentary: No Blood Disorders: No Adverse Reaction/Blood Tranf: No (ZACHERY BAKER APRN) Family Medical History Alcoholism 19 FATHER G8 BROTHER Congenital heart disease 19 FATHER Family history: Cardiovascular disease 19 FATHER, Onset:40's - 50 Family history: Diabetes mellitus 19 MOTHER Family history: Hypertension 19 FATHER Heart disease 19 FATHER History of - respiratory disease 19 FATHER History of drug abuse 19 MOTHER Hypercholesterolemia 19 FATHER Myocardial infarction 19 FATHER Seizure disorder 19 FATHER No Family History of: Abdominal aortic aneurysm [place]on's disease Cancer Congestive heart failure Cystic fibrosis Dementia Dysphagia Family history: Allergy Family history: Alzheimer's disease Family history: Arthritis Family history: Asthma Family history: Breast disease Family history: Coronary thrombosis Family history: Gastrointestinal disease Family history: Glaucoma Family history: Osteoporosis Family history: Thyroid disorder Headache Hearing loss Hereditary disease History of - anemia History of - disorder Human immunodeficiency virus (HIV) seropositivity Infertile Kidney disease Malignant neoplasm of lung Parkinson's disease Prostate cancer Psychotic disorder Stroke Tuberculosis Visual impairment No Pertinent Family Hx (ZACHERY BAKER APRN) Physical Exam Vital Signs Vital Signs - First Documented 12/29/20 15:12 Temp 36.9 Pulse 89 Resp 20 B/P (MAP) 119/88 (98) Pulse Ox 98 O2 Delivery Room Air (GRIFFIN GUTIERREZ MD) Vital Signs Capillary Refill : (ZACHERY BAKER APRN) Height, Weight, BMI Height: 5'10.00" Weight: 240lbs. 0oz. [id number]; 28.00 BMI Method:Stated General Appearance: No Apparent Distress, WD/WN, Other (Vitals are stable alert and oriented no distress) Eyes: Bilateral Eye Normal Inspection, Bilateral Eye PERRL HEENT: PERRL/EOMI, TMs Normal Neck: Full Range of Motion, Normal Inspection Respiratory: Normal Breath Sounds, No Accessory Muscle Use, No Respiratory Distress Cardiovascular: Regular Rate, Rhythm, Normal Peripheral Pulses Gastrointestinal: Normal Bowel Sounds, Non Tender, Soft Extremity: Normal Capillary Refill, Normal Inspection Neurologic/Psychiatric: Alert, Oriented x3 Skin: Normal Color, Warm/Dry (ZACHERY BAKER APRN) Progress/Results/Core Measures Suspected Sepsis SIRS Temperature: Pulse: Respiratory Rate: Blood Pressure / Mean: (ZACHERY BAKER APRN) Results/Orders Lab Results Laboratory Tests Test 12/29/20 15:05 12/29/20 15:19 Range/Units White Blood Count 6.2 4.3-11.0 10^3/uL Red Blood Count 4.17 L 4.30-5.52 10^6/uL Hemoglobin 12.1 L 13.3-17.7 g/dL Hematocrit 37 L 40-54 % Mean Corpuscular Volume 88 80-99 fL Mean Corpuscular Hemoglobin 29 25-34 pg Mean Corpuscular Hemoglobin Concent 33 32-36 g/dL Red Cell Distribution Width 12.1 10.0-14.5 % Platelet Count 189 130-400 10^3/uL Mean Platelet Volume 9.7 9.0-12.2 fL Immature Granulocyte % (Auto) 0 % Neutrophils (%) (Auto) 43 42-75 % Lymphocytes (%) (Auto) 41 12-44 % Monocytes (%) (Auto) 7 0-12 % Eosinophils (%) (Auto) 7 0-10 % Basophils (%) (Auto) 1 0-10 % Neutrophils # (Auto) 2.7 1.8-7.8 10^3/uL Lymphocytes # (Auto) 2.6 1.0-4.0 10^3/uL Monocytes # (Auto) 0.4 0.0-1.0 10^3/uL Eosinophils # (Auto) 0.5 H 0.0-0.3 10^3/uL Basophils # (Auto) 0.1 0.0-0.1 10^3/uL Immature Granulocyte # (Auto) 0.0 0.0-0.1 10^3/uL Sodium Level 138 135-145 MMOL/L Potassium Level 4.1 3.6-5.0 MMOL/L Chloride Level 102 98-107 MMOL/L Carbon Dioxide Level 25 21-32 MMOL/L Anion Gap 11 5-14 MMOL/L Blood Urea Nitrogen 11 7-18 MG/DL Creatinine 0.90 0.60-1.30 MG/DL Estimat Glomerular Filtration Rate 97 BUN/Creatinine Ratio 12 Glucose Level 258 H 70-105 MG/DL Calcium Level 8.5 8.5-10.1 MG/DL Corrected Calcium 8.5 8.5-10.1 MG/DL Total Bilirubin 0.6 0.1-1.0 MG/DL Aspartate Amino Transf (AST/SGOT) 28 5-34 U/L Alanine Aminotransferase (ALT/SGPT) 30 0-55 U/L Alkaline Phosphatase 85 40-136 U/L Total Creatine Kinase 167 30-200 U/L Total Protein 6.7 6.4-8.2 GM/DL Albumin 4.0 3.2-4.5 GM/DL Urine Color YELLOW Urine Clarity CLEAR Urine pH 6.0 5-9 Urine Specific [place] >=1.030 1.016-1.022 Urine Protein NEGATIVE NEGATIVE Urine Glucose (UA) 2+ H NEGATIVE Urine Ketones NEGATIVE NEGATIVE Urine Nitrite NEGATIVE NEGATIVE Urine Bilirubin NEGATIVE NEGATIVE Urine Urobilinogen 0.2 < = 1.0 MG/DL Urine Leukocyte Esterase NEGATIVE NEGATIVE Urine RBC (Auto) NEGATIVE NEGATIVE Urine RBC NONE /HPF Urine WBC NONE /HPF Urine Squamous Epithelial Cells NONE /HPF Urine Crystals NONE /LPF Urine Bacteria NEGATIVE /HPF Urine Casts NONE /LPF Urine Mucus SMALL H /LPF Urine Culture Indicated NO (GRIFFIN GUTIERREZ MD) Vital Signs/I&O 12/29/20 12/29/20 15:12 16:28 Temp 36.9 Pulse 89 76 Resp 20 20 B/P (MAP) 119/88 (98) 121/79 Pulse Ox 98 98 O2 Delivery Room Air Room Air (GRIFFIN GUTIERREZ MD) Vital Signs/I&O Capillary Refill : (ZACHERY BAKER APRN) Departure Impression Primary Impression: Heat exhaustion Disposition: 01 HOME, SELF-CARE Condition: Stable Departure-Patient Inst. Decision time for Depature: 15:10 (ZACHERY BAKER APRN) Referrals: [facility] [place] (PCP/Family) Primary Care Physician Patient Instructions: Heat Exhaustion and Heat Stroke (DC) Add. Discharge Instructions: 1. Go home and increase fluid intake 2. Off today off tomorrow return on Sunday. Return to ER for any worsening. Work/School Note: Work Release Form Date Seen in the Emergency Department: Dec 29, 2020 Return to Work: Dec 31, 2020 ATTENDING PHYSICIAN NOTE: I was physically present as attending physician in the emergency department during the care of this patient, but I was not directly involved in the decision making or delivery of care for this patient. (GRIFFIN GUTIERREZ MD) ZACHERY BAKER APRN Dec 29, 2020 15:11 GRIFFIN GUTIERREZ MD Dec 30, 2020 07:13
[2020-12-29 15:14] LABS: BASOPHILS # (AUTO) 0.1 10^3/uL (0.0-0.1); BASOPHILS % (AUTO) 1 % (0-10); EOSINOPHILS # (AUTO) 0.5 10^3/uL (0.0-0.3); EOSINOPHILS % (AUTO) 7 % (0-10); HEMATOCRIT 37 % (40-54); HEMOGLOBIN 12.1 g/dL (13.3-17.7); LYMPHOCYTES # (AUTO) 2.6 10^3/uL (1.0-4.0); LYMPHOCYTES % (AUTO) 41 % (12-44); MEAN CORPUSCULAR HEMOGLOBIN 29 pg (25-34); MEAN CORPUSCULAR HGB CONC 33 g/dL (32-36); MEAN CORPUSCULAR VOLUME 88 fL (80-99); MEAN PLATELET VOLUME 9.7 fL (9.0-12.2); MONOCYTES # (AUTO) 0.4 10^3/uL (0.0-1.0); MONOCYTES % (AUTO) 7 % (0-12); NEUTROPHILS # (AUTO) 2.7 10^3/uL (1.8-7.8); NEUTROPHILS % (AUTO) 43 % (42-75); PLATELET COUNT 189 10^3/uL (130-400); WHITE BLOOD COUNT 6.2 10^3/uL (4.3-11.0)
[2020-12-29] MEDS ORDERED: LACTATED RINGERS 1,000 ML IV SCH (15:15)
[2020-12-29] MEDS ORDERED: ONDANSETRON 4 MG/2 ML (SDV) Z0FRAN IVP ONE (15:15)
[2020-12-29 15:24] LABS: BILIRUBIN,URINE NEGATIVE (NEGATIVE); CLARITY,URINE CLEAR; COLOR,URINE YELLOW; GLUCOSE, URINE (UA) 2+ (NEGATIVE); KETONES,URINE NEGATIVE (NEGATIVE); LEUKOCYTE ESTERASE ,URINE NEGATIVE (NEGATIVE); NITRITE,URINE NEGATIVE (NEGATIVE); PROTEIN,URINE NEGATIVE (NEGATIVE)
[2020-12-29 15:30] LABS: POTASSIUM 4.1 MMOL/L (3.6-5.0)
[2020-12-29 15:31] LABS: BACTERIA,URINE NEGATIVE /HPF
[2020-12-29 15:31] LABS: CALCIUM 8.5 MG/DL (8.5-10.1)
[2020-12-29 15:32] LABS: TOTAL PROTEIN 6.7 GM/DL (6.4-8.2)
[2020-12-29 15:34] LABS: BILIRUBIN,TOTAL 0.6 MG/DL (0.1-1.0)
[2020-12-29 15:36] LABS: CREATININE SERUM 0.9 MG/DL (0.60-1.30)
[2020-12-29 16:28] VITALS: BP 121/79
== END 2020-12-29 16:26 | disposition home or self-care (01) ==
LOC: EDUNIT# 14:59 → ER 15:00
DX: T67.5XXA Heat exhaustion, unspecified, initial encounter (principal); I10 Essential (primary) hypertension; E10.40 Type 1 diabetes mellitus with diabetic neuropathy, unspecified; J44.9 Chronic obstructive pulmonary disease, unspecified; G89.29 Other chronic pain; M54.9 Dorsalgia, unspecified; F32.9 Major depressive disorder, single episode, unspecified; Z79.891 Long term (current) use of opiate analgesic; Z79.899 Other long term (current) drug therapy
CPT/HCPCS: 36415; 80053; 81000; 82550; 85025

== ENCOUNTER 2021-02-27 18:54 | Emergency (ER) | payer SELFPAY ==
[~2021-02-27] VITALS: Ht 178 cm; Wt 86.2 kg
[~2021-02-27 18:54] MED LIST changes: -LISI2.5T PO; +LISI2.5T13 PO
--- NOTE | 2021-02-27 19:09 | ED General ---
General Stated Complaint: VOMITING / BODYACHES / COUGH Source of Information: Patient Exam Limitations: No Limitations (ZACHERY BAKER APRN) History of Present Illness Date Seen by Provider: Feb 27, 2021 Time Seen by Provider: 19:06 Initial Comments to ER with vomiting body aches cough since Sunday. No fevers. He is a type I diabetic. He takes 5 units of regular insulin with meals and 40 units of Levemir at bedtime. He has not checked his sugars today. Yesterday they were in the 300s. He works at [employer] and states that his job is physically demanding which has helped to bring his sugars down recently. Nausea persists despite his reglan for gastroparesis. No pain other pain body aches and left upper dental pain for which he has not yet seen a dentist. Timing/Duration: 2-3 Days Severity: Moderate Associated Systoms: Nausea/Vomiting (ZACHERY BAKER APRN) Allergies and Home Medications Allergies Coded Allergies: tramadol (Verified Adverse Reaction, Mild, N/V, 12/21/14) Patient Home Medication List Home Medication List Reviewed: Yes (ZACHERY BAKER APRN) Acetaminophen (Tylenol Extra Strength) 500 Mg Tablet, 1,000 MG PO Q6H PRN for PAIN-MILD (1-4), (Reported) Entered as Reported by: SAMRA MCCORD on 08/24/20 142 Amoxicillin (Amoxicillin) 500 Mg Capsule, 500 MG PO TID Prescribed by: ZACHERY BAKER on 02/27/211916 Azithromycin (Azithromycin) 250 Mg Tablet, 250 MG PO DAILY Prescribed by: GRIFFIN MURO on 09/15/20 162 Gabapentin (Gabapentin) 800 Mg Tablet, 800 MG PO QID, (Reported) Entered as Reported by: SAMRA MCCORD on 08/24/20 142 Insulin Aspart (Novolog) 100 Unit/1 Ml Susp, 5 UNIT SQ AC, (Reported) Entered as Reported by: SAMRA MCCORD on 08/24/20 142 Insulin Glargine,Hum.rec.anlog (Lantus) 100 Unit/1 Ml Vial, 40 UNIT SQ HS, (Reported) Entered as Reported by: SAMRA MCCORD on 08/24/20 142 Metoclopramide HCl (Reglan) 10 Mg Tablet, 10 MG PO ACHS Prescribed by: CARLOS MCLEAN on 08/27/20623 Multivitamin (Multivitamin) 1 Each Tablet, 1 EACH PO DAILY, (Reported) Entered as Reported by: SAMRA MCCORD on 08/24/20 1424 Ondansetron (Ondansetron Odt) 8 Mg Tab.rapdis, 8 MG PO Q6H PRN for NAUSEA/VOMITING Prescribed by: ZACHERY BAKER on 02/27/21 1917 Oxycodone Hcl (Oxyir Tablet) 5 Mg Tab, 5 MG PO TID PRN for PAIN-SEVERE (8-10) Prescribed by: CARLOS MCLEAN on 08/27/20 1209 Pantoprazole Sodium (Protonix) 40 Mg Tablet.dr, 40 MG PO DAILY Prescribed by: CARLOS MCLEAN on 08/27/20623 Sucralfate (Sucralfate) 1 Gm Tablet, 1 GM PO ACHS Prescribed by: CARLOS MCLEAN on 08/27/20623 Review of Systems Review of Systems Constitutional: see HPI EENTM: see HPI Respiratory: no symptoms reported Cardiovascular: no symptoms reported Genitourinary: no symptoms reported Musculoskeletal: no symptoms reported Skin: no symptoms reported Psychiatric/Neurological: No Symptoms Reported Hematologic/Lymphatic: No Symptoms Reported Immunological/Allergic: no symptoms reported (ZACHERY BAKER APRN) Past Xvsxkli-Vujouk-Nmbhus Hx Immunizations Up To Date Tetanus Booster (TDap): Unknown (ZACHERY BAKER APRN) Seasonal Allergies Seasonal Allergies: No (ZACHERY BAKER APRN) Past Medical History Surgeries: Yes Gallbladder Respiratory: Yes (copd dx by patient) COPD Currently Using CPAP: No Currently Using BIPAP: No Cardiac: Yes Hypertension Neurological: Yes Neuropathy Reproductive Disorders: No Sexually Transmitted Disease: No HIV/AIDS: No Genitourinary: No Kidney Infection Gastrointestinal: Yes (ELEVATED LIVER ENZYMES, Hep A) Liver Disease/Jaundice Musculoskeletal: Yes Arthritis, Scoliosis, Chronic Back Pain Endocrine: Yes (Type I) Diabetes, Insulin dep HEENT: No Hearing Impairment: Denies Cancer: No Psychosocial: Yes (POLYSUBSTANCE ABUSE) Depression Integumentary: No Blood Disorders: No Adverse Reaction/Blood Tranf: No (ZACHERY BAKER APRN) Family Medical History Alcoholism 19 FATHER G8 BROTHER Congenital heart disease 19 FATHER Family history: Cardiovascular disease 19 FATHER, Onset:40's - 50 Family history: Diabetes mellitus 19 MOTHER Family history: Hypertension 19 FATHER Heart disease 19 FATHER History of - respiratory disease 19 FATHER History of drug abuse 19 MOTHER Hypercholesterolemia 19 FATHER Myocardial infarction 19 FATHER Seizure disorder 19 FATHER No Family History of: Abdominal aortic aneurysm [place]'s disease Cancer Congestive heart failure Cystic fibrosis Dementia Dysphagia Family history: Allergy Family history: Alzheimer's disease Family history: Arthritis Family history: Asthma Family history: Breast disease Family history: Coronary thrombosis Family history: Gastrointestinal disease Family history: Glaucoma Family history: Osteoporosis Family history: Thyroid disorder Headache Hearing loss Hereditary disease History of - anemia History of - disorder Human immunodeficiency virus (HIV) seropositivity Infertile Kidney disease Malignant neoplasm of lung Parkinson's disease Prostate cancer Psychotic disorder Stroke Tuberculosis Visual impairment No Pertinent Family Hx (ZACHERY BAKER APRN) Physical Exam Vital Signs Vital Signs - First Documented 02/27/21 18:56 Temp 37.0 Pulse 94 Resp 18 B/P (MAP) 149/95 (113) Pulse Ox 99 O2 Delivery Room Air (JG VILLAVICENCIO MD) Vital Signs Capillary Refill : (ZACHERY BAKER APRN) Height, Weight, BMI Height: 5'10.00" Weight: 240lbs. 0oz. 108.645919jm; 28.00 BMI Method:Stated General Appearance: No Apparent Distress, WD/WN Eyes: Bilateral Eye Normal Inspection, Bilateral Eye PERRL, Bilateral Eye EOMI HEENT: Other (oral exam reveals several fractured and carious teeth including the painful tooth. No palpable swelling. ) Neck: Full Range of Motion, Normal Inspection Respiratory: Lungs Clear, Normal Breath Sounds, No Accessory Muscle Use, No Respiratory Distress Cardiovascular: Regular Rate, Rhythm, Normal Peripheral Pulses Gastrointestinal: Non Tender, Soft Extremity: Normal Capillary Refill, Normal Inspection Neurologic/Psychiatric: Alert, Oriented x3 Skin: Normal Color, Warm/Dry (ZACHERY BAKER APRN) Progress/Results/Core Measures Suspected Sepsis SIRS Temperature: Pulse: Respiratory Rate: Laboratory Tests 02/27/21 19:00: Blood Pressure / Mean: Laboratory Tests 02/27/21 19:00: (ZACHERY BAKER APRN) Results/Orders Lab Results Laboratory Tests Test 02/27/21 19:00 02/27/21 19:33 Range/Units White Blood Count 9.0 4.3-11.0 10^3/uL Red Blood Count 4.70 4.30-5.52 10^6/uL Hemoglobin 13.6 13.3-17.7 g/dL Hematocrit 41 40-54 % Mean Corpuscular Volume 87 80-99 fL Mean Corpuscular Hemoglobin 29 25-34 pg Mean Corpuscular Hemoglobin Concent 33 32-36 g/dL Red Cell Distribution Width 12.3 10.0-14.5 % Platelet Count 254 130-400 10^3/uL Mean Platelet Volume 9.5 9.0-12.2 fL Immature Granulocyte % (Auto) 0 % Neutrophils (%) (Auto) 52 42-75 % Lymphocytes (%) (Auto) 32 12-44 % Monocytes (%) (Auto) 5 0-12 % Eosinophils (%) (Auto) 10 0-10 % Basophils (%) (Auto) 1 0-10 % Neutrophils # (Auto) 4.7 1.8-7.8 10^3/uL Lymphocytes # (Auto) 2.9 1.0-4.0 10^3/uL Monocytes # (Auto) 0.5 0.0-1.0 10^3/uL Eosinophils # (Auto) 0.9 H 0.0-0.3 10^3/uL Basophils # (Auto) 0.1 0.0-0.1 10^3/uL Immature Granulocyte # (Auto) 0.0 0.0-0.1 10^3/uL Sodium Level 141 135-145 MMOL/L Potassium Level 3.5 L 3.6-5.0 MMOL/L Chloride Level 99 98-107 MMOL/L Carbon Dioxide Level 30 21-32 MMOL/L Anion Gap 12 5-14 MMOL/L Blood Urea Nitrogen 16 7-18 MG/DL Creatinine 0.96 0.60-1.30 MG/DL Estimat Glomerular Filtration Rate 90 BUN/Creatinine Ratio 17 Glucose Level 143 H 70-105 MG/DL Calcium Level 9.5 8.5-10.1 MG/DL Corrected Calcium 9.3 8.5-10.1 MG/DL Total Bilirubin 0.6 0.1-1.0 MG/DL Aspartate Amino Transf (AST/SGOT) 18 5-34 U/L Alanine Aminotransferase (ALT/SGPT) 23 0-55 U/L Alkaline Phosphatase 105 40-136 U/L Total Protein 7.3 6.4-8.2 GM/DL Albumin 4.2 3.2-4.5 GM/DL Beta-Hydroxybutyrate (Chem panel) 0.10 0.00-0.27 MMOL/L SARS-CoV-2 RNA (RT-PCR) Not Detected Not Detecte Urine Color YELLOW Urine Clarity CLEAR Urine pH 5.5 5-9 Urine Specific [place] >=1.030 1.016-1.022 Urine Protein 1+ H NEGATIVE Urine Glucose (UA) NEGATIVE NEGATIVE Urine Ketones NEGATIVE NEGATIVE Urine Nitrite NEGATIVE NEGATIVE Urine Bilirubin NEGATIVE NEGATIVE Urine Urobilinogen 0.2 < = 1.0 MG/DL Urine Leukocyte Esterase NEGATIVE NEGATIVE Urine RBC (Auto) NEGATIVE NEGATIVE Urine RBC NONE /HPF Urine WBC NONE /HPF Urine Squamous Epithelial Cells NONE /HPF Urine Renal Epithelial Cells NONE /HPF Urine Crystals NONE /LPF Urine Bacteria NEGATIVE /HPF Urine Casts NONE /LPF Urine Mucus LARGE H /LPF Urine Culture Indicated NO (JG VILLAVICENCIO MD) Vital Signs/I&O 02/27/21 02/27/21 18:56 20:20 Temp 37.0 Pulse 94 69 Resp 18 18 B/P (MAP) 149/95 (113) 115/69 Pulse Ox 99 98 O2 Delivery Room Air Room Air (JG VILLAVICENCIO MD) Vital Signs/I&O Capillary Refill : (ZACHERY BAKER APRN) Departure Impression Primary Impression: Nausea & vomiting Additional Impression: Dental caries Disposition: 01 HOME, SELF-CARE Condition: Stable Departure-Patient Inst. Decision time for Depature: 19:16 (ZACHERY BAKER APRN) Referrals: [facility] [place] Primary Care Physician Patient Instructions: Nausea and Vomiting, Adult ED, Dental Pain ED Scripts Amoxicillin (Amoxicillin) 500 Mg Capsule 500 MG PO TID, #21 CAP 0 Refills Prov: ZACHERY BAKER APRN 02/27/21 Ondansetron (Ondansetron Odt) 8 Mg Tab.rapdis 8 MG PO Q6H PRN for NAUSEA/VOMITING, #14 TAB Prov: ZACHERY BAKER APRN 02/27/21 Work/School Note: Work Release Form Date Seen in the Emergency Department: Feb 27, 2021 Return to Work: Mar 01, 2021 ZACHERY BAKER APRN Feb 27, 2021 19:08 JG VILLAVICENCIO MD Mar 01, 2021 23:55
[2021-02-27 19:15] LABS: BASOPHILS # (AUTO) 0.1 10^3/uL (0.0-0.1); BASOPHILS % (AUTO) 1 % (0-10); EOSINOPHILS # (AUTO) 0.9 10^3/uL (0.0-0.3); EOSINOPHILS % (AUTO) 10 % (0-10); HEMATOCRIT 41 % (40-54); HEMOGLOBIN 13.6 g/dL (13.3-17.7); LYMPHOCYTES # (AUTO) 2.9 10^3/uL (1.0-4.0); LYMPHOCYTES % (AUTO) 32 % (12-44); MEAN CORPUSCULAR HEMOGLOBIN 29 pg (25-34); MEAN CORPUSCULAR HGB CONC 33 g/dL (32-36); MEAN CORPUSCULAR VOLUME 87 fL (80-99); MEAN PLATELET VOLUME 9.5 fL (9.0-12.2); MONOCYTES # (AUTO) 0.5 10^3/uL (0.0-1.0); MONOCYTES % (AUTO) 5 % (0-12); NEUTROPHILS # (AUTO) 4.7 10^3/uL (1.8-7.8); NEUTROPHILS % (AUTO) 52 % (42-75); PLATELET COUNT 254 10^3/uL (130-400)
[2021-02-27] MEDS ORDERED: LACTATED RINGERS 1,000 ML IV SCH (19:15)
[2021-02-27] MEDS ORDERED: ONDANSETRON 4 MG/2 ML (SDV) Z0FRAN IVP ONE (19:15)
[2021-02-27] MEDS ORDERED: KETOROLAC 30 MG/ML VIAL IVP ONE (19:15)
[2021-02-27] MEDS ORDERED: ONDA8TAB13 PO (19:17)
[2021-02-27] MEDS ORDERED: AMOX500C2 PO (19:17)
[2021-02-27 19:34] LABS: ALBUMIN 4.2 GM/DL (3.2-4.5); POTASSIUM 3.5 MMOL/L (3.6-5.0)
[2021-02-27 19:35] LABS: CALCIUM 9.5 MG/DL (8.5-10.1)
[2021-02-27 19:37] LABS: TOTAL PROTEIN 7.3 GM/DL (6.4-8.2)
[2021-02-27 19:38] LABS: BILIRUBIN,TOTAL 0.6 MG/DL (0.1-1.0)
[2021-02-27 19:40] LABS: CREATININE SERUM 0.96 MG/DL (0.60-1.30)
[2021-02-27 19:41] LABS: BILIRUBIN,URINE NEGATIVE (NEGATIVE); CLARITY,URINE CLEAR; COLOR,URINE YELLOW; GLUCOSE, URINE (UA) NEGATIVE (NEGATIVE); KETONES,URINE NEGATIVE (NEGATIVE); LEUKOCYTE ESTERASE ,URINE NEGATIVE (NEGATIVE); NITRITE,URINE NEGATIVE (NEGATIVE); PH,URINE 5.5 (5-9); PROTEIN,URINE 1+ (NEGATIVE)
[2021-02-27 19:49] LABS: BACTERIA,URINE NEGATIVE /HPF
[2021-02-27] MEDS ORDERED: PROMETHAZINE INJ 25 MG/ML (PHENERGAN) AMP IVP ONE (20:15)
[2021-02-27] MEDS ORDERED: PROCHLORPERAZINE 10 MG/2ML INJ (COMPAZINE) IV ONE (20:15)
[2021-02-27 20:20] VITALS: BP 115/69
== END 2021-02-27 20:20 | disposition home or self-care (01) ==
LOC: EDUNIT# 18:54 → ER 18:56
DX: R11.2 Nausea with vomiting, unspecified (principal); K02.9 Dental caries, unspecified; J44.9 Chronic obstructive pulmonary disease, unspecified; I10 Essential (primary) hypertension; E10.9 Type 1 diabetes mellitus without complications; G89.29 Other chronic pain; M54.9 Dorsalgia, unspecified; Z20.822 Contact with and (suspected) exposure to COVID-19; Z79.891 Long term (current) use of opiate analgesic; Z79.899 Other long term (current) drug therapy
CPT/HCPCS: 36415; 80053; 81000; 82010; 85025; 87636

== ENCOUNTER 2021-04-09 07:44 | Observation (INO) | payer SELFPAY ==
[~2021-04-09] VITALS: Ht 177.8 cm; Wt 94.9 kg
[~2021-04-09 07:44] MED LIST changes: -DULO60CA6 PO; +DULO60CA7 PO
[2021-04-09] MEDS ORDERED: ONDANSETRON 4 MG/2 ML (SDV) Z0FRAN ONE (08:04)
[2021-04-09] MEDS ORDERED: NS IV 1000 ML 1,000 ML IV SCH ×2 (08:15→13:00)
[2021-04-09] MEDS ORDERED: ONDANSETRON 4 MG/2 ML (SDV) Z0FRAN IVP ONE (08:15)
[2021-04-09] MEDS ORDERED: FAMOTIDINE 20MG/2ML IV (PEPCID) IVP ONE (08:15)
[2021-04-09] MEDS ORDERED: NS IV 1000 ML 1,000 ML ONE (08:16)
[2021-04-09 08:21] LABS: BASOPHILS # (AUTO) 0.1 10^3/uL (0.0-0.1); BASOPHILS % (AUTO) 1 % (0-10); EOSINOPHILS # (AUTO) 0.6 10^3/uL (0.0-0.3); EOSINOPHILS % (AUTO) 8 % (0-10); HEMATOCRIT 42 % (40-54); HEMOGLOBIN 13.8 g/dL (13.3-17.7); LYMPHOCYTES # (AUTO) 2.3 10^3/uL (1.0-4.0); LYMPHOCYTES % (AUTO) 32 % (12-44); MEAN CORPUSCULAR HEMOGLOBIN 29 pg (25-34); MEAN CORPUSCULAR HGB CONC 33 g/dL (32-36); MEAN CORPUSCULAR VOLUME 89 fL (80-99); MEAN PLATELET VOLUME 9.8 fL (9.0-12.2); MONOCYTES # (AUTO) 0.4 10^3/uL (0.0-1.0); MONOCYTES % (AUTO) 5 % (0-12); NEUTROPHILS # (AUTO) 3.9 10^3/uL (1.8-7.8); NEUTROPHILS % (AUTO) 53 % (42-75); PLATELET COUNT 230 10^3/uL (130-400); WHITE BLOOD COUNT 7.2 10^3/uL (4.3-11.0)
--- NOTE | 2021-04-09 08:25 | ED General ---
General Chief Complaint: Abdominal/GI Problems Stated Complaint: N/V,ABD PAIN,SOB Nursing Triage Note: PT AMB TO RM 10 WITH COMPLAINT OF ABD PAIN, N/V, SOA. STARTED THIS MORNING AROUND 0500. Source of Information: Patient Exam Limitations: No Limitations History of Present Illness Date Seen by Provider: Apr 09, 2021 Time Seen by Provider: 08:02 Initial Comments This 35-year-old gentleman with type 1 diabetes presents to the emergency room with generalized abdominal pain, vomiting, and shortness of breath that started around 0500. He has history of prior admissions for DKA. He is status post cholecystectomy. He denies fever and feels cold. He reports blood sugar yesterday around lunchtime was in the 130s. He has not checked it this morning. Fingerstick blood sugar on assessment was 105. He is noted to have a sinus bradycardia on the monitor with a heart rate in the 40s. He has been vaccinated for COVID-19. He denies any alcohol use. He admits to marijuana use. Emesis in the basin is clear and mucousy with what appears to be a speck of blood. Patient does have a history of gastritis/esophagitis by endoscopy. He reports taking Carafate daily. Allergies and Home Medications Allergies Coded Allergies: tramadol (Verified Adverse Reaction, Mild, N/V, 12/21/14) Patient Home Medication List Home Medication List Reviewed: Yes Acetaminophen (Tylenol Extra Strength) 500 Mg Tablet, 1,000 MG PO Q6H PRN for PAIN-MILD (1-4), (Reported) Entered as Reported by: SAMRA MCCORD on 08/24/20 142 Amoxicillin (Amoxicillin) 500 Mg Capsule, 500 MG PO TID Prescribed by: ZACHERY BAKER on 02/27/21 191 Azithromycin (Azithromycin) 250 Mg Tablet, 250 MG PO DAILY Prescribed by: GRIFFIN MURO on 09/15/20 1624 Gabapentin (Gabapentin) 800 Mg Tablet, 800 MG PO QID, (Reported) Entered as Reported by: SAMRA MCCORD on 08/24/20 142 Insulin Aspart (Novolog) 100 Unit/1 Ml Susp, 5 UNIT SQ AC, (Reported) Entered as Reported by: SAMRA MCCORD on 08/24/20 142 Insulin Glargine,Hum.rec.anlog (Lantus) 100 Unit/1 Ml Vial, 40 UNIT SQ HS, (Reported) Entered as Reported by: SAMRA MCCORD on 08/24/20 1424 Metoclopramide HCl (Reglan) 10 Mg Tablet, 10 MG PO ACHS Prescribed by: CARLOS MCLEAN on 08/27/20623 Multivitamin (Multivitamin) 1 Each Tablet, 1 EACH PO DAILY, (Reported) Entered as Reported by: SAMRA MCCORD on 08/24/20 1424 Ondansetron (Ondansetron Odt) 8 Mg Tab.rapdis, 8 MG PO Q6H PRN for NAUSEA/VOMITING Prescribed by: ZACHERY BAKER on 02/27/21 191 Oxycodone Hcl (Oxyir Tablet) 5 Mg Tab, 5 MG PO TID PRN for PAIN-SEVERE (8-10) Prescribed by: CARLOS MCLEAN on 08/27/20 1209 Pantoprazole Sodium (Protonix) 40 Mg Tablet.dr, 40 MG PO DAILY Prescribed by: CARLOS MCLEAN on 08/27/20623 Sucralfate (Sucralfate) 1 Gm Tablet, 1 GM PO ACHS Prescribed by: CARLOS MCLEAN on 08/27/20623 Review of Systems Review of Systems Constitutional: see HPI EENTM: no symptoms reported Respiratory: see HPI Cardiovascular: see HPI Gastrointestinal: see HPI Genitourinary: no symptoms reported Musculoskeletal: no symptoms reported Skin: no symptoms reported Psychiatric/Neurological: No Symptoms Reported Hematologic/Lymphatic: No Symptoms Reported Immunological/Allergic: no symptoms reported Past Usrbzea-Bojinc-Ocodpt Hx Patient Social History Tobacco Use?: No Use of E-Cig and/or Vaping dev: No Substance use?: Yes Substance type: Marijuana Alcohol Use?: No Pt feels they are or have been: No Immunizations Up To Date Tetanus Booster (TDap): Unknown First/Initial COVID19 Vaccinat: 08/11/2020 Second COVID19 Vaccination Kumar: 09/10/2020 Third COVID19 Vaccination Date: 08/11/2020 COVID19 Vaccine Player Manager: bobo Seasonal Allergies Seasonal Allergies: No Past Medical History Surgeries: Yes Abdominal (EGD), Gallbladder Respiratory: Yes (copd dx by patient) COPD Currently Using CPAP: No Currently Using BIPAP: No Cardiac: Yes Hypertension Neurological: Yes Neuropathy Reproductive Disorders: No Sexually Transmitted Disease: No HIV/AIDS: No Genitourinary: Yes Kidney Infection Gastrointestinal: Yes (ELEVATED LIVER ENZYMES, Hep A) Gastroesophageal Reflux, Liver Disease/Jaundice, Esophagitis (And gastritis) Musculoskeletal: Yes Arthritis, Scoliosis, Chronic Back Pain Endocrine: Yes (Type I) Diabetes, Insulin dep HEENT: No Hearing Impairment: Denies Cancer: No Psychosocial: Yes (POLYSUBSTANCE ABUSE) Depression Integumentary: No Blood Disorders: No Adverse Reaction/Blood Tranf: No Family Medical History Reviewed Nursing Family Hx Alcoholism 19 FATHER G8 BROTHER Congenital heart disease 19 FATHER Family history: Cardiovascular disease 19 FATHER, Onset:40's - 50 Family history: Diabetes mellitus 19 MOTHER Family history: Hypertension 19 FATHER Heart disease 19 FATHER History of - respiratory disease 19 FATHER History of drug abuse 19 MOTHER Hypercholesterolemia 19 FATHER Myocardial infarction 19 FATHER Seizure disorder 19 FATHER No Family History of: Abdominal aortic aneurysm Bradley's disease Cancer Congestive heart failure Cystic fibrosis Dementia Dysphagia Family history: Allergy Family history: Alzheimer's disease Family history: Arthritis Family history: Asthma Family history: Breast disease Family history: Coronary thrombosis Family history: Gastrointestinal disease Family history: Glaucoma Family history: Osteoporosis Family history: Thyroid disorder Headache Hearing loss Hereditary disease History of - anemia History of - disorder Human immunodeficiency virus (HIV) seropositivity Infertile Kidney disease Malignant neoplasm of lung Parkinson's disease Prostate cancer Psychotic disorder Stroke Tuberculosis Visual impairment No Pertinent Family Hx Physical Exam Vital Signs Vital Signs - First Documented 04/09/21 07:59 Temp 34.0 Pulse 43 Resp 28 B/P (MAP) 146/81 (102) Pulse Ox 100 O2 Delivery Room Air Capillary Refill : Less Than 3 Seconds Height, Weight, BMI Height: 5'10.00" Weight: 240lbs. 0oz. 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 Norm as Tested Skin: Normal Color, Warm/Dry Focused Exam Lactate Level 04/09/21 08:05: Lactic Acid Level 2.08*H 04/09/21 10:46: Lactic Acid Level 1.55 Lactic Acid Level Laboratory Tests Test 04/09/21 08:05 04/09/21 10:46 Lactic Acid Level 2.08 MMOL/L (0.50-2.00) *H 1.55 MMOL/L (0.50-2.00) Progress/Results/Core Measures Suspected Sepsis SIRS Temperature: Pulse: 43 Respiratory Rate: 28 Laboratory Tests 04/09/21 08:05: White Blood Count 7.2 Blood Pressure 146 /81 Mean: 102 04/09/21 08:05: Lactic Acid Level 2.08*H 04/09/21 10:46: Lactic Acid Level 1.55 Laboratory Tests 04/09/21 08:05: Creatinine 0.78, Platelet Count 230, Total Bilirubin 0.5 Results/Orders Lab Results Laboratory Tests Test 04/09/21 08:05 04/09/21 08:15 04/09/21 09:04 04/09/21 10:46 Range/Units White Blood Count 7.2 4.3-11.0 10^3/uL Red Blood Count 4.73 4.30-5.52 10^6/uL Hemoglobin 13.8 13.3-17.7 g/dL Hematocrit 42 40-54 % Mean Corpuscular Volume 89 80-99 fL Mean Corpuscular Hemoglobin 29 25-34 pg Mean Corpuscular Hemoglobin Concent 33 32-36 g/dL Red Cell Distribution Width 12.4 10.0-14.5 % Platelet Count 230 130-400 10^3/uL Mean Platelet Volume 9.8 9.0-12.2 fL Immature Granulocyte % (Auto) 0 % Neutrophils (%) (Auto) 53 42-75 % Lymphocytes (%) (Auto) 32 12-44 % Monocytes (%) (Auto) 5 0-12 % Eosinophils (%) (Auto) 8 0-10 % Basophils (%) (Auto) 1 0-10 % Neutrophils # (Auto) 3.9 1.8-7.8 10^3/uL Lymphocytes # (Auto) 2.3 1.0-4.0 10^3/uL Monocytes # (Auto) 0.4 0.0-1.0 10^3/uL Eosinophils # (Auto) 0.6 H 0.0-0.3 10^3/uL Basophils # (Auto) 0.1 0.0-0.1 10^3/uL Immature Granulocyte # (Auto) 0.0 0.0-0.1 10^3/uL Sodium Level 140 135-145 MMOL/L Potassium Level 3.5 L 3.6-5.0 MMOL/L Chloride Level 105 98-107 MMOL/L Carbon Dioxide Level 23 21-32 MMOL/L Anion Gap 12 5-14 MMOL/L Blood Urea Nitrogen 15 7-18 MG/DL Creatinine 0.78 0.60-1.30 MG/DL Estimat Glomerular Filtration Rate 115 BUN/Creatinine Ratio 19 Glucose Level 106 H 70-105 MG/DL Lactic Acid Level 2.08 *H 1.55 0.50-2.00 MMOL/L Calcium Level 8.9 8.5-10.1 MG/DL Corrected Calcium 8.9 8.5-10.1 MG/DL Magnesium Level 1.7 1.6-2.4 MG/DL Total Bilirubin 0.5 0.1-1.0 MG/DL Aspartate Amino Transf (AST/SGOT) 24 5-34 U/L Alanine Aminotransferase (ALT/SGPT) 30 0-55 U/L Alkaline Phosphatase 78 40-136 U/L C-Reactive Protein High Sensitivity 0.04 0.00-0.50 MG/DL Total Protein 6.5 6.4-8.2 GM/DL Albumin 4.0 3.2-4.5 GM/DL Lipase 9 8-78 U/L Procalcitonin 0.01 <0.10 NG/ML Serum Alcohol < 10 <10 MG/DL Influenza Type A (RT-PCR) Not Detected Not Detecte Influenza Type B (RT-PCR) Not Detected Not Detecte SARS-CoV-2 RNA (RT-PCR) Not Detected Not Detecte Glucometer 105 124 H 70-110 MG/DL Test 04/09/21 12:17 Range/Units My Orders Orders - GRIFFIN GUTIERREZ MD Ondansetron Injection (Zofran Injectio (04/09/21 08:04) Cbc With Automated Diff (04/09/21 08:10) Comprehensive Metabolic Panel (04/09/21 08:10) Hs C Reactive Protein (04/09/21 08:10) Magnesium (04/09/21 08:10) Ua Culture If Indicated (04/09/21 08:10) Accucheck Stat ONCE (04/09/21 08:10) Alcohol (04/09/21 08:10) Drug Screen Stat (Urine) (04/09/21 08:10) Ondansetron Injection (Zofran Injectio (04/09/21 08:15) Famotidine Injection (Pepcid Injection) (04/09/21 08:15) Blood Culture (04/09/21 08:14) Sputum Culture (04/09/21 08:14) Chest 1 View, Ap/Pa Only (04/09/21 08:14) Vital Signs Adult Sepsis Patie Q15M (04/09/21 08:14) Remove Rings In Anticipation O (04/09/21 08:14) Lactic Acid Analyzer (04/09/21 08:14) Influenza A And B By Pcr (04/09/21 08:14) Covid 19 Inhouse Test (04/09/21 08:14) Ns Iv 1000 Ml (Sodium Chloride 0.9%) (04/09/21 08:15) Lipase (04/09/21 08:16) Procalcitonin (Pct) (04/09/21 08:16) Ekg Tracing (04/09/21 08:16) Monitor-Rhythm Ecg Trace Only (04/09/21 08:16) Ns Iv 1000 Ml (Sodium Chloride 0.9%) (04/09/21 08:16) Lactated Ringers (Lr 1000 Ml Iv Solution (04/09/21 09:15) Accucheck Stat ONCE (04/09/21 09:02) Fentanyl Inj (Sublimaze Injection) (04/09/21 09:15) Pantoprazole Injection (Protonix Injecti (04/09/21 09:15) Promethazine Injection (Phenergan Injec (04/09/21 10:45) Ct Abdomen/Pelvis W (04/09/21 10:51) Iohexol Injection (Omnipaque 350 Mg/Ml 1 (04/09/21 11:15) Received Contrast (Hold Metformin- Contr (04/09/21 11:15) Ns (Ivpb) (Sodium Chloride 0.9% Ivpb Bag (04/09/21 11:15) Promethazine Injection (Phenergan Injec (04/09/21 12:00) Medications Given in ED Current Medications Medications Dose Ordered Sig/Fer Route Start Time Stop Time Status Last Admin Dose Admin Famotidine 20 mg ONCE ONCE IVP 04/09/21 08:15 04/09/21 08:16 DC 04/09/21 08:18 20 MG Fentanyl Citrate 50 mcg ONCE ONCE IVP 04/09/21 09:15 04/09/21 09:16 DC 04/09/21 09:13 50 MCG Iohexol 100 ml ONCE ONCE IV 04/09/21 11:15 04/09/21 11:16 DC 04/09/21 11:23 100 ML Lactated Ringer's 1,000 ml @ 0 mls/hr Q0M ONCE IV 04/09/21 09:15 04/09/21 09:16 DC 04/09/21 09:13 0 MLS/HR Ondansetron HCl 8 mg ONCE ONCE IVP 04/09/21 08:15 04/09/21 08:16 DC 04/09/21 08:18 8 MG Pantoprazole 40 mg ONCE ONCE IV 04/09/21 09:15 04/09/21 09:16 DC 04/09/21 09:13 40 MG Promethazine HCl 12.5 mg ONCE ONCE IVP 04/09/21 10:45 04/09/21 10:46 DC 04/09/21 10:54 12.5 MG Promethazine HCl 12.5 mg ONCE ONCE IVP 04/09/21 12:00 04/09/21 12:01 DC 04/09/21 12:18 12.5 MG Sodium Chloride 100 ml ONCE ONCE IV 04/09/21 11:15 04/09/21 11:16 DC 04/09/21 11:23 80 ML Vital Signs/I&O 04/09/21 07:59 Temp 34.0 Pulse 43 Resp 28 B/P (MAP) 146/81 (102) Pulse Ox 100 O2 Delivery Room Air Capillary Refill : Less Than 3 Seconds Blood Pressure Mean: 102 Progress Note #1: Time: 08:25 Progress Note Patient was seen and examined. Zofran given for nausea. Pepcid also administered. He is receiving IV fluids. He was covered with warm blankets. Work-up is pending. EKG demonstrated sinus bradycardia with a heart rate in the 40s. He is maintaining blood pressure well. Progress Note #2: Time: 11:53 Progress Note Patient has received a liter of normal saline and a liter of LR. He had refractory nausea and vomiting after Zofran. Phenergan 12.5 mg was administered. He is again having refractory nausea. He has vomited a small amount of clear liquid in the emesis basin with blood streaking. On reexamination he still had diffuse abdominal pain and tenderness. CT was ordered as he is presenting as an acute abdomen. Labs were relatively unremarkable and blood sugar has been stable. CT report is pending at this time. Progress Note #3: Time: 12:[address] scan revealed constipation but no other acute abnormalities. Patient is being admitted to Dr. Mclean with Dr. Ca consulted. Dr. Mclean will place the admission orders. Sinus bradycardia has resolved. Progress Note #4: Time: 12:31 Progress Note I informed patient of plan. He complains of rebounding nausea and pain. I am ordering a scopolamine patch and morphine 2 mg IV ECG Initial ECG Impression Date: Apr 09, 2021 Initial ECG Impression Time: 08:06 Initial ECG Rate: 43 Initial ECG Rhythm: S.Rajendra Comment Sinus bradycardia with no ST elevation or depression. No abnormal intervals or axis deviation. Diagnostic Imaging Diagonstic Imaging: Xray Plain Films/CT/US/NM/MRI: chest Comments Chest x-ray viewed by me and report reviewed. See report below: NAME: LYDIA CARUSO [facility] REC#: [id number] PT STATUS: REG ER : 1985 PHYSICIAN: GRIFFIN GUTIERREZ MD ADMIT DATE: 04/09/21/ER Signed Date of Exam:04/09/21 CHEST 1 VIEW, AP/PA ONLY INDICATION: Sepsis Frontal chest obtained at 0850 a.m. and compared with 09/15/2020. Heart and mediastinal silhouette are normal in appearance. There is some minimal infiltrate versus atelectasis in the right medial base. Lung ahuja are otherwise clear. There is no pneumothorax or pleural fluid. IMPRESSION: Minimal infiltrate versus atelectasis right medial base. Otherwise negative chest. Follow-up is suggested. Dictated by: Dictated on workstation # [id number] Dict: 04/09/21 09 Trans: 04/09/21928 [facility] [id number] Interpreted by: GIO GRIFFIN MD Electronically signed by: GIO GRIFFIN MD 04/09/21928 Diagonstic Imaging: CT Plain Films/CT/US/NM/MRI: abdomen, pelvis Comments CT abdomen pelvis viewed by me and report reviewed. See report below: NAME: LYDIA CARUSO JR [facility] REC#: [id number] PT STATUS: REG ER : 1985 PHYSICIAN: GRIFFIN GUTIERREZ MD ADMIT DATE: 04/09/21/ER Draft Date of Exam:04/09/21 CT ABDOMEN/PELVIS W EXAMINATION: CT abdomen and pelvis with intravenous contrast. TECHNIQUE: Multiple contiguous axial images were obtained through the abdomen and pelvis after the uneventful administration of intravenous contrast. All CT scans use one or more of the following dose optimizing techniques: automated exposure control, MA and/or KvP adjustment based on patient size and exam type or iterative reconstruction. HISTORY: Abdominal pain. Nausea and vomiting. COMPARISON: 02/07/2020. FINDINGS: The heart is unremarkable. The included lung bases are clear. The liver, spleen, pancreas, adrenal glands, and kidneys have a normal appearance. The gallbladder surgically absent. There is no pathologically enlarged mesenteric or retroperitoneal adenopathy. The bowel loops are nondilated. A large amount of stool seen throughout the colon. There is no free fluid or free air. No acute osseous abnormalities. Ureters and bladder are grossly normal. There is no free air, loculated collection, or adenopathy in the pelvis. IMPRESSION: 1. Large amount stool throughout the colon, consistent with constipation. No bowel obstruction, free fluid, or free air. Dictated on workstation # [id number] Dict: 04/09/21 1144 Trans: 04/09/21 1208 [facility] [id number] Interpreted by: JAY HACKETT DO Departure Communication (Admissions) Time/Spoke to Admitting Phy: 12:24 Dr. Mclean Time/Spoke to Consulting Phy: 12:20 Dr. Ca Impression Primary Impression: Generalized abdominal pain Additional Impressions: Nausea & vomiting Qualified Codes: R11.2 - Nausea with vomiting, unspecified Sinus bradycardia Hematemesis Qualified Codes: K92.0 - Hematemesis Constipation Qualified Codes: K59.00 - Constipation, unspecified Disposition: ADMITTED INPATIENT Condition: Improved Admissions Decision to Admit Reason: Admit from ER (General) Decision to Admit/Date: Apr 09, 2021 Time/Decision to Admit Time: 10:45 Departure-Patient Inst. Decision time for Depature: 10:30 Referrals: [facility][1]/K (PCP/Family) Primary Care Physician GRIFFIN GUTIERREZ MD Apr 09, 2021 08:24
[2021-04-09 08:45] LABS: ALANINE AMINOTRANSFERASE 30 U/L (0-55); ALKALINE PHOSPHATASE 78 U/L (40-136); BILIRUBIN,TOTAL 0.5 MG/DL (0.1-1.0); BUN/CREATININE RATIO 19; CALCIUM 8.9 MG/DL (8.5-10.1); CARBON DIOXIDE 23 MMOL/L (21-32); CHLORIDE 105 MMOL/L (98-107); CREATININE SERUM 0.78 MG/DL (0.60-1.30); GFR ESTIMATED 115; GLUCOSE 106 MG/DL (70-105); LIPASE 9 U/L (8-78); MAGNESIUM 1.7 MG/DL (1.6-2.4); POTASSIUM 3.5 MMOL/L (3.6-5.0); SODIUM 140 MMOL/L (135-145); TOTAL PROTEIN 6.5 GM/DL (6.4-8.2)
[2021-04-09] MEDS ORDERED: LACTATED RINGERS 1,000 ML IV ONE (09:15)
[2021-04-09] MEDS ORDERED: PANTOPRAZOLE 40 MG (PROTONIX) VIAL IV ONE (09:15)
[2021-04-09] MEDS ORDERED: fentaNYL INJ 100 MCG/2 ML AMP IVP ONE (09:15)
--- NOTE | 2021-04-09 09:19 | Diagnostic Imaging Report ---
INDICATION: Sepsis Frontal chest obtained at 0850 a.m. and compared with 09/15/2020. Heart and mediastinal silhouette are normal in appearance. There is some minimal infiltrate versus atelectasis in the right medial base. Lung ahuja are otherwise clear. There is no pneumothorax or pleural fluid. IMPRESSION: Minimal infiltrate versus atelectasis right medial base. Otherwise negative chest. Follow-up is suggested. Dictated by: Dictated on workstation # [id number]
[2021-04-09] MEDS ORDERED: PROMETHAZINE INJ 25 MG/ML (PHENERGAN) AMP IVP ONE ×2 (10:45→12:00)
[2021-04-09] MEDS ORDERED: NS 100 ML (IVPB) BAG IV ONE (11:15)
[2021-04-09] MEDS ORDERED: HOLD METFORMIN - RECEIVED CONTRAST 20 ML VIAL IV SCH (11:15)
[2021-04-09] MEDS ORDERED: IOHEXOL 350 MG/ML 100 ML (OMNIPAQUE 350) VIAL IV ONE (11:15)
--- NOTE | 2021-04-09 12:09 | Diagnostic Imaging Report ---
EXAMINATION: CT abdomen and pelvis with intravenous contrast. TECHNIQUE: Multiple contiguous axial images were obtained through the abdomen and pelvis after the uneventful administration of intravenous contrast. All CT scans use one or more of the following dose optimizing techniques: automated exposure control, MA and/or KvP adjustment based on patient size and exam type or iterative reconstruction. HISTORY: Abdominal pain. Nausea and vomiting. COMPARISON: 02/07/2020. FINDINGS: The heart is unremarkable. The included lung bases are clear. The liver, spleen, pancreas, adrenal glands, and kidneys have a normal appearance. The gallbladder surgically absent. There is no pathologically enlarged mesenteric or retroperitoneal adenopathy. The bowel loops are nondilated. A large amount of stool seen throughout the colon. There is no free fluid or free air. No acute osseous abnormalities. Ureters and bladder are grossly normal. There is no free air, loculated collection, or adenopathy in the pelvis. IMPRESSION: 1. Large amount stool throughout the colon, consistent with constipation. No bowel obstruction, free fluid, or free air. Dictated by: Dictated on workstation # [id number]
[2021-04-09 12:22] LABS: BILIRUBIN,URINE NEGATIVE (NEGATIVE); CLARITY,URINE CLEAR; COLOR,URINE YELLOW; GLUCOSE, URINE (UA) TRACE (NEGATIVE); KETONES,URINE 1+ (NEGATIVE); LEUKOCYTE ESTERASE ,URINE NEGATIVE (NEGATIVE); NITRITE,URINE NEGATIVE (NEGATIVE); PROTEIN,URINE TRACE (NEGATIVE)
--- NOTE | 2021-04-09 12:28 | History & Physical-Hospitalist ---
History of Present Illness HPI/Chief Complaint Chief complaint: Hematemesis History present illness: This is a 35-year-old white male type I diabetic who presented to the ER with nausea and vomiting with blood in the emesis. He was admitted placed on Accu-Cheks every 4 hours due to type [address] PEARSON has been consulted. Source: patient Exam Limitations: clinical condition Date Seen 04/09/21 Time Seen by a Provider: 13:00 Attending Physician [facility] [place] Referring Physician Date of Admission Home Medications & Allergies Home Medications Reviewed patient Home Medication Reconciliation performed by pharmacy medication reconciliations teletype technician and/or nursing. Patients Allergies have been reviewed. Allergies Allergies Coded Allergies tramadol (Verified Adverse Reaction, Mild, N/V, 12/21/14) Past Lctnsfm-Gfxtel-Ixbuay Hx Patient Social History Tobacco Use?: No Use of E-Cig and/or Vaping dev: No Substance use?: Yes Substance type: Marijuana Alcohol Use?: No Pt feels they are or have been: No Immunizations Up To Date Date of Influenza Vaccine: Mar 04, 2019 First/Initial COVID19 Vaccinat: 08/11/2020 Second COVID19 Vaccination Kumar: 09/10/2020 Tetanus Booster (TDap): Less Than 5 Years Hepatitis A: No Hepatitis B: No Date of Pneumonia Vaccine: Aug 27, 2011 Seasonal Allergies Seasonal Allergies: No Current Status Advance Directives: No Primary Language: Vietnamese Preferred Spoken Language: Vietnamese Past Medical History Surgeries: Abdominal (EGD), Gallbladder COPD Currently Using CPAP: No Currently Using BIPAP: No Hypertension Neuropathy Sexually Transmitted Disease: No HIV/AIDS: No Kidney Infection Gastroesophageal Reflux, Liver Disease/Jaundice, Esophagitis (And gastritis) Arthritis, Scoliosis, Chronic Back Pain Diabetes, Insulin dep Hearing Impairment: Denies Depression Blood Disorders: No Adverse Reaction/Blood Tranf: No Past Medical History 1. DM, insulin requiring, not controlled, not compliant 2. Hypertension- was previously prescribed medications but never filled 3. Alcoholism- with previous heavy daily alcohol use- reports stopped drinking 4. 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 Tobaccoism 6. GERD 7. Non-compliance- pt. is chronically non-compliant with his medications and follow up 8. Peipheral Neuropathy Past Surgical History 1. None Family Medical History Reviewed Nursing Family Hx Alcoholism 19 FATHER G8 BROTHER Congenital heart disease 19 FATHER Family history: Cardiovascular disease 19 FATHER, Onset:40's - 50 Family history: Diabetes mellitus 19 MOTHER Family history: Hypertension 19 FATHER Heart disease 19 FATHER History of - respiratory disease 19 FATHER History of drug abuse 19 MOTHER Hypercholesterolemia 19 FATHER Myocardial infarction 19 FATHER Seizure disorder 19 FATHER No Family History of: Abdominal aortic aneurysm [place]'s disease Cancer Congestive heart failure Cystic fibrosis Dementia Dysphagia Family history: Allergy Family history: Alzheimer's disease Family history: Arthritis Family history: Asthma Family history: Breast disease Family history: Coronary thrombosis Family history: Gastrointestinal disease Family history: Glaucoma Family history: Osteoporosis Family history: Thyroid disorder Headache Hearing loss Hereditary disease History of - anemia History of - disorder Human immunodeficiency virus (HIV) seropositivity Infertile Kidney disease Malignant neoplasm of lung Parkinson's disease Prostate cancer Psychotic disorder Stroke Tuberculosis Visual impairment No Pertinent Family Hx Review of Systems ROS-Unable to Obtain: Lethargy Constitutional: see HPI Physical Exam Physical Exam Vital Signs Vital Signs - First Documented 04/09/21 04/09/21 07:59 13:24 Temp 34.0 Pulse 43 Resp 28 B/P (MAP) 146/81 (102) Pulse Ox 100 O2 Delivery Room Air FiO2 21 Capillary Refill : Less Than 3 Seconds Height, Weight, BMI Height: 5'10.00" Weight: 240lbs. 0oz. 108.272550pi; 30.00 BMI Method:Stated General Appearance: No Apparent Distress Eyes: Right Eye Normal Inspection, Right Eye PERRL HEENT: PERRL/EOMI, Normal ENT Inspection, Pharynx Normal, Moist Mucous Membranes Neck: Full Range of Motion, Normal Inspection, Non Tender Respiratory: Chest Non Tender, Lungs Clear, Normal Breath Sounds, No Accessory Muscle Use, No Respiratory Distress Cardiovascular: Regular Rate, Rhythm, No Edema, No Gallop, No JVD, No Murmur, Normal Peripheral Pulses Gastrointestinal: Normal Bowel Sounds, No Organomegaly, No Pulsatile Mass, Non Tender, Soft Back: Normal Inspection, No CVA Tenderness, No Vertebral Tenderness Extremity: Normal Capillary Refill, Normal Inspection, Normal Range of Motion, Non Tender, No Calf Tenderness, No Pedal Edema Neurologic/Psychiatric: Alert, Oriented x3, No Motor/Sensory Deficits, Normal Mood/Affect Skin: Normal Color, Warm/Dry Lymphatic: No Adenopathy Results Results/Procedures Labs Laboratory Tests 04/09/21 08:05 04/10/21 06:19 Patient resulted labs reviewed. Assessment/Plan Admission Diagnosis Assessment: Hematemesis Type 1 diabetes Plan: Dr. PEARSON consult Monitor closely Supportive care Admission Status: Observation CARLOS MCLEAN DO Apr 09, 2021 12:28
[2021-04-09] MEDS ORDERED: morphine INJ 10 MG/ML 1ML (SYR OR VIAL) IVP STA (12:32)
[2021-04-09 12:36] LABS: AMPHETAMINE SCREEN, URINE NEGATIVE (NEGATIVE); BARBITURATE SCREEN URINE NEGATIVE (NEGATIVE); BENZODIAZEPINES SCREEN URINE NEGATIVE (NEGATIVE); CANNABINOID SCREEN, URINE POSITIVE (NEGATIVE); COCAINE SCREEN URINE NEGATIVE (NEGATIVE); METHADONE STAT NEGATIVE (NEGATIVE); METHAMPHETAMINE SCREEN URINE S NEGATIVE (NEGATIVE); OPIATE SCREEN URINE NEGATIVE (NEGATIVE); OXYCODONE STAT NEGATIVE (NEGATIVE); PROPOXYPHENE STAT NEGATIVE (NEGATIVE); TRICYCLIC ANTIDEPRESSANTS SCRE NEGATIVE (NEGATIVE)
[2021-04-09 12:39] LABS: BACTERIA,URINE NEGATIVE /HPF
[2021-04-09] MEDS ORDERED: SCOPOLAMINE 1.5 MG (TRANSDERM-SCOP) PATCH TD ONE ×2 (12:45→13:00)
[2021-04-09] MEDS ORDERED: ONDANSETRON 4 MG/2 ML (SDV) Z0FRAN IVP PRN (13:00)
[2021-04-09] MEDS ORDERED: morphine INJ 4 MG/ML 1 ML (VIAL/SYRINGE) IVP PRN (13:00)
[2021-04-09] MEDS ORDERED: morphine INJ 10 MG/ML 1ML (SYR OR VIAL) IVP PRN (13:00)
[2021-04-09] MEDS: NS IV 1000 ML 1,000 ML IV SCH ×2 (13:20→23:03)
[2021-04-09 13:24] VITALS: BP 179/91
[2021-04-09] MEDS ORDERED: RT-ALBUTEROL/IPRATROPIUM 3 ML (DUONEB) VIAL INH PRN (13:30)
[2021-04-09] MEDS: RT-ALBUTEROL/IPRATROPIUM 3 ML (DUONEB) VIAL INH SCH ×2 (15:03→22:44)
[2021-04-09] MEDS: ONDANSETRON 4 MG/2 ML (SDV) Z0FRAN IVP PRN ×2 (15:22→20:01)
[2021-04-09] MEDS: morphine INJ 4 MG/ML 1 ML (VIAL/SYRINGE) IVP PRN ×2 (15:23→20:01)
--- NOTE | 2021-04-09 16:09 | Tele-ICU Consult ---
History of Present Illness History of Present Illness Date Seen by Provider: Apr 09, 2021 Time Seen by Provider: 15:58 History of Present Illness This 35-year-old gentleman with type 1 diabetes presents to the emergency room with generalized abdominal pain, vomiting, and shortness of breath that started around 0500. He has history of prior admissions for DKA. He is status post cholecystectomy. He denies fever and feels cold. He reports blood sugar yesterday around lunchtime was in the 130s. He has not checked it this morning. Fingerstick blood sugar on assessment was 105. He is noted to have a sinus bradycardia on the monitor with a heart rate in the 40s. He has been vaccinated for COVID-19. He denies any alcohol use. He admits to marijuana use. Emesis in the basin is clear and mucousy with what appears to be a speck of blood. Patient does have a history of gastritis/esophagitis by endoscopy. He reports taking Carafate daily. fter fluid bolus and pain management his heart rate improved to 90's. admitted to icu for close monitoring Allergies and Home Medications Allergies Coded Allergies: tramadol (Verified Adverse Reaction, Mild, N/V, 12/21/14) Home Medications Acetaminophen 500 Mg Tablet, 1,000 MG PO Q6H PRN for PAIN-MILD (1-4), (Reported) Amoxicillin 500 Mg Capsule, 500 MG PO TID Prescribed by: ZACHERY BAKER on 02/27/211916 Azithromycin 250 Mg Tablet, 250 MG PO DAILY Prescribed by: GRIFFIN MURO on 09/15/20 1624 Gabapentin 800 Mg Tablet, 800 MG PO QID, (Reported) Insulin Aspart 100 Unit/1 Ml Susp, 5 UNIT SQ AC, (Reported) Insulin Glargine,Hum.rec.anlog 100 Unit/1 Ml Vial, 40 UNIT SQ HS, (Reported) Metoclopramide HCl 10 Mg Tablet, 10 MG PO ACHS Prescribed by: CARLOS MCLEAN on 08/27/20 0624 Multivitamin 1 Each Tablet, 1 EACH PO DAILY, (Reported) Ondansetron 8 Mg Tab.rapdis, 8 MG PO Q6H PRN for NAUSEA/VOMITING Prescribed by: ZACHERY BAKER on 02/27/211916 Oxycodone Hcl 5 Mg Tab, 5 MG PO TID PRN for PAIN-SEVERE (8-10) Prescribed by: CARLOS MCLEAN on 08/27/20 1209 Pantoprazole Sodium 40 Mg Tablet.dr, 40 MG PO DAILY Prescribed by: CARLOS MCLEAN on 08/27/20 0624 Sucralfate 1 Gm Tablet, 1 GM PO ACHS Prescribed by: CARLOS MCLEAN on 08/27/20623 Past Medical/Social/Family Hx Patient Social History Tobacco Use?: Yes Smoking Status: Never a Smoker Use of E-Cig and/or Vaping dev: No E-Cig and/or Vaping Freq: Never a User Substance use?: Yes Substance type: Marijuana Substance frequency: Several times a month Alcohol Use?: No Pt stated abuse/neglect: No Immunizations Up To Date Influenza Vaccine Up-to-Date: No; Not Current First/Initial COVID19 Vaccinat: 08/11/2020 Second COVID19 Vaccination Kumar: 09/10/2020 Tetanus Booster (TDap): Less Than 5 Years Hepatitis A: No Hepatitis B: No TB Skin Test: None Date of Pneumonia Vaccine: Aug 27, 2011 Current Status Advance Directives: Unable to obtain Communicates: Verbally Primary Language: Montenegrin Preferred Spoken Language: Montenegrin Past Medical History Past Medical History 1. DM, insulin requiring, not controlled, not compliant 2. Hypertension- was previously prescribed medications but never filled 3. Alcoholism- with previous heavy daily alcohol use- reports stopped drinking 4. 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 Tobaccoism 6. GERD 7. Non-compliance- pt. is chronically non-compliant with his medications and follow up 8. Peipheral Neuropathy Past Surgical History 1. None Review of Systems Constitutional: see HPI EENTM: see HPI Other per attending physician Sepsis Event Evaluation Height, Weight, BMI Height: 5'10.00" Weight: 240lbs. 0oz. 108.146756tm; 30.14 BMI Method:Stated Exam Exam Patient acknowledged, consented, and participated in this virtual visit which was conducted using real time audio/video Vital Signs Date Time Temp Pulse Resp B/P (MAP) Pulse Ox O2 Delivery O2 Flow Rate FiO2 04/09/21 15:31 37.1 04/09/21 15:00 73 23 157/78 96 Room Air 04/09/21 14:00 66 11 96 Room Air 04/09/21 13:24 34.0 92 97 21 04/09/21 13:08 85 04/09/21 13:00 92 28 97 Room Air 04/09/21 13:00 98 Room Air 04/09/21 12:50 92 23 168/86 99 Room Air 04/09/21 12:45 92 28 179/91 97 Room Air 04/09/21 07:59 34.0 43 28 146/81 (102) 100 Room Air Height & Weight Height: 5'10.00" Weight: 240lbs. 0oz. 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 abdominal pain due to obstipation 2. dehydration. 3.type 1 dm controlled. 4.sinus bradycardia due to vagal stimulation now resolved. Recommendations. 1. IVF with normal saline. 2.monitor blood sugars per primary. 3. zofran for nausea and vomitings. 4. bowel regimen for constipation per attending. 5. ok to transfer out of icu to floor from critical care point of view Critical Care: Critically Ill Patient Time spent with patient (mins): 40 GUDELIA VARGAS MD Apr 09, 2021 16:09
--- NOTE | 2021-04-09 16:24 | CONSULTATION REPORT ---
DATE OF SERVICE: 04/09/2021 ATTENDING PRIMARY RETIREMENT ACTUARY: [facility]. HISTORY OF PRESENT ILLNESS: The patient is a 35-year-old male with history of type 1 diabetes as well as a history of noncompliance. He has been admitted before in the past for diabetic ketoacidosis. He felt cold and then developed bradycardia. He then reports that he has had an epigastric crampy pain as well as nausea and vomiting of mucousy material with a very small specks of blood. The patient states that he only takes Carafate at home. We had done an EGD on him in 08/2020. He was found to have a reflux esophagitis stage II, mild to moderate gastritis. No distal obstructions. No formal ulcerations. He also does smoke marijuana and does have a history of neuropathy. It is hard to ascertain the cause of his nausea and vomiting; however, this may be due to cannabinoid hyperemesis syndrome as well as a developing diabetic gastroparesis. Again, he still smokes and does have risk factors for peptic ulcer disease and for now, we will treat him conservatively with a PPI acid reducers on a b.i.d. basis. PAST MEDICAL HISTORY: Insulin-dependent diabetes, COPD, history of hepatitis A and elevated liver enzymes, gastroesophageal reflux disease, scoliosis, degenerative joint disease, depression, polysubstance abuse, hypertension, neuropathy. PAST SURGICAL HISTORY: Laparoscopic cholecystectomy. ALLERGIES: TRAMADOL. MEDICATIONS: Amoxicillin 500 mg t.i.d., azithromycin 250 mg daily, gabapentin 800 mg q.i.d., aspartate insulin 5 units q.a.c., Lantus insulin 40 units at bedtime, metoclopramide 10 mg q.i.d., Zofran p.r.n., oxycodone 5 mg t.i.d. p.r.n., Protonix 40 mg daily, Carafate 1 gram q.i.d. SOCIAL HISTORY: Positive for marijuana smoke. Past history of methamphetamine use; however, states that he is currently not using. FAMILY HISTORY: Mother, diabetes. Father, myocardial infarction, coronary artery disease. VITAL SIGNS: Temperature 34.0, blood pressure 157/78, pulse 73, respirations 23, pulse ox 96% on room air. REVIEW OF SYSTEMS: Well-nourished male currently in no acute distress. He is not experiencing any shortness of breath or difficulty breathing. No chest pain, palpitations, diaphoresis. Upon admission, he did have intermittent episodes of nausea as well as vomiting of saliva, however, there was a small amount of blood-tinged material. No humphrey episodes of hematemesis or coffee-ground emesis. He states that he has had a history of constipation. He does not report any red blood per rectum nor any dark tarry stools. No fever, chills, no recent inadvertent weight loss. All other review of systems negative. PHYSICAL EXAMINATION: CHEST: Scattered wheezes bilaterally. HEART: Regular, no murmurs. EXTREMITIES: No lower extremity edema, negative Homans sign. NECK: No cervical lymphadenopathy. HEENT: No scleral icterus, no cervical lymphadenopathy. ABDOMEN: Soft, nondistended. There is pain in the epigastric region upon deep palpation. No peritoneal signs. No hernias. SKIN: Warm, dry. LABORATORY DATA: WBC 7.9, hemoglobin 13.8, hematocrit 42, platelets 230, BUN 15, creatinine 0.78. Toxicology was positive for cannabinoid. ASSESSMENT AND PLAN: A 35-year-old male with epigastric pain, nausea and vomiting with history of insulin-dependent diabetes, however, this is also compounded by regular use of cannabis, which may indicate a cannabinoid hyperemesis syndrome; however, this also may be a developing gastroparesis as well as peptic ulcer disease. 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 basis as well as Carafate q.i.d. and start with clear liquids. Job ID: [id number] DocumentID: [id number] Dictated Date: 04/09/2021 15:43:36 Engine Specialist Date: 04/09/2021 16:24:03 Dictated By: LUIS PEARSON MD
[2021-04-09] MEDS: inSUlin ASPART (NovoLOG) 1 UNIT/0.01 ML (CHARGE PER UNIT) SC SCH ×2 (16:52→20:50)
[2021-04-09] MEDS: SUCRALFATE 1 GM (CARAFATE) TAB PO SCH ×2 (16:52→20:01)
[2021-04-09] MEDS: METOCLOPRAMIDE INJ 10 MG/2 ML (REGLAN) IVP SCH ×2 (16:52→23:03)
[2021-04-09] MEDS: PANTOPRAZOLE 40 MG (PROTONIX) VIAL IV SCH (20:01)
[2021-04-10] MEDS: morphine INJ 4 MG/ML 1 ML (VIAL/SYRINGE) IVP PRN ×3 (00:11→08:14)
[2021-04-10] MEDS: ONDANSETRON 4 MG/2 ML (SDV) Z0FRAN IVP PRN ×4 (03:05→18:29)
[2021-04-10] MEDS: RT-ALBUTEROL/IPRATROPIUM 3 ML (DUONEB) VIAL INH SCH ×4 (04:08→22:41)
[2021-04-10] MEDS: SUCRALFATE 1 GM (CARAFATE) TAB PO SCH ×4 (05:06→20:24)
[2021-04-10] MEDS: NS IV 1000 ML 1,000 ML IV SCH ×3 (05:06→20:24)
[2021-04-10] MEDS: METOCLOPRAMIDE INJ 10 MG/2 ML (REGLAN) IVP SCH ×4 (05:06→23:04)
[2021-04-10] MEDS: inSUlin ASPART (NovoLOG) 1 UNIT/0.01 ML (CHARGE PER UNIT) SC SCH ×4 (05:26→20:25)
[2021-04-10 06:30] LABS: BASOPHILS # (AUTO) 0.1 10^3/uL (0.0-0.1); BASOPHILS % (AUTO) 1 % (0-10); EOSINOPHILS % (AUTO) 0 % (0-10); HEMATOCRIT 38 % (40-54); HEMOGLOBIN 12.4 g/dL (13.3-17.7); LYMPHOCYTES # (AUTO) 1.5 10^3/uL (1.0-4.0); LYMPHOCYTES % (AUTO) 13 % (12-44); MEAN CORPUSCULAR HEMOGLOBIN 29 pg (25-34); MEAN CORPUSCULAR HGB CONC 33 g/dL (32-36); MEAN CORPUSCULAR VOLUME 90 fL (80-99); MEAN PLATELET VOLUME 9.6 fL (9.0-12.2); MONOCYTES # (AUTO) 0.5 10^3/uL (0.0-1.0); MONOCYTES % (AUTO) 4 % (0-12); NEUTROPHILS # (AUTO) 9.2 10^3/uL (1.8-7.8); NEUTROPHILS % (AUTO) 82 % (42-75); PLATELET COUNT 206 10^3/uL (130-400); WHITE BLOOD COUNT 11.3 10^3/uL (4.3-11.0)
[2021-04-10 06:48] LABS: ALBUMIN 3.2 GM/DL (3.2-4.5); BILIRUBIN,TOTAL 0.7 MG/DL (0.1-1.0); CALCIUM 7.9 MG/DL (8.5-10.1); CREATININE SERUM 0.82 MG/DL (0.60-1.30); POTASSIUM 3.8 MMOL/L (3.6-5.0); TOTAL PROTEIN 5.2 GM/DL (6.4-8.2)
[2021-04-10] MEDS ORDERED: FLU QUADRIvalent (3YOA+) 60 mcg/0.5 ml 2021-22(AFLURIA) IM ONE (07:45)
[2021-04-10] MEDS: PANTOPRAZOLE 40 MG (PROTONIX) VIAL IV SCH ×2 (08:13→20:25)
[2021-04-10] MEDS ORDERED: PANTOPRAZOLE 40 MG (PROTONIX) VIAL IV SCH (09:00)
--- NOTE | 2021-04-10 10:03 | Progress Note ---
Subjective Date Seen by a Provider: Apr 10, 2021 Time Seen by a Provider: 09:20 Subjective/Events-last exam Patient seen with Dr. Ca. Patient reports still having epigastric pain. Occasional nausea. Denies any vomiting. Tolerating clear liquids. Focused Exam Lactate Level 04/09/21 08:05: Lactic Acid Level 2.08*H 04/09/21 10:46: Lactic Acid Level 1.55 Objective Exam Vital Signs Date Time Temp Pulse Resp B/P (MAP) Pulse Ox O2 Delivery O2 Flow Rate FiO2 04/10/21 09:03 Room Air 04/10/21 07:30 37.5 88 18 131/69 98 Room Air 04/10/21 04:25 37.0 92 20 123/63 94 Room Air 04/10/21 00:40 36.8 100 18 125/60 98 Room Air 04/09/21 22:44 98 Room Air 04/09/21 21:00 37.6 79 18 128/60 97 Room Air 04/09/21 20:00 37.4 04/09/21 20:00 Room Air 04/09/21 19:37 37.7 86 20 128/62 95 Room Air 04/09/21 19:00 85 04/09/21 18:00 86 28 136/72 94 Room Air 04/09/21 17:00 73 21 144/79 96 Room Air 04/09/21 16:00 74 28 154/80 98 Room Air 04/09/21 15:31 37.1 04/09/21 15:15 Room Air 04/09/21 15:00 73 23 157/78 96 Room Air 04/09/21 14:00 66 11 96 Room Air 04/09/21 13:24 34.0 92 97 21 04/09/21 13:08 85 04/09/21 13:00 92 28 97 Room Air 04/09/21 13:00 98 Room Air 04/09/21 12:50 92 23 168/86 99 Room Air 04/09/21 12:45 92 28 179/91 97 Room Air I & O 04/10/21 07:00 Intake Total 2425 ml Output Total 650 ml Balance 1775 ml Capillary Refill : Less Than 3 Seconds General Appearance: No Apparent Distress, WD/WN Neck: Normal Inspection, Supple Respiratory: No Accessory Muscle Use, No Respiratory Distress Cardiovascular: Regular Rate, Rhythm, No Edema Gastrointestinal: normal bowel sounds, soft, tenderness (Epigastric) Extremity: Normal Inspection, Normal Range of Motion Neurologic/Psychiatric: Alert, Oriented x3 Skin: Normal Color, Warm/Dry Results Lab Laboratory Tests 04/09/21 10:46: Lactic Acid Level 1.55 04/09/21 12:17: Urine Color YELLOW, Urine Clarity CLEAR, Urine pH 8.0, Urine Specific [place] 1.010L, Urine Protein TRACEH, Urine Glucose (UA) TRACEH, Urine Ketones 1+H, Urine Nitrite NEGATIVE, Urine Bilirubin NEGATIVE, Urine Urobilinogen 0.2, Urine Leukocyte Esterase NEGATIVE, Urine RBC (Auto) NEGATIVE, Urine RBC NONE, Urine WBC NONE, Urine Squamous Epithelial Cells NONE, Urine Crystals NONE, Urine Bacteria NEGATIVE, Urine Casts NONE, Urine Mucus SMALLH, Urine Culture Indicated NO, Urine Opiates Screen NEGATIVE, Urine Oxycodone Screen NEGATIVE, Urine Methadone Screen NEGATIVE, Urine Propoxyphene Screen NEGATIVE, Urine Barbiturates Screen NEGATIVE, Ur Tricyclic Antidepressants Screen NEGATIVE, Urine Phencyclidine Screen NEGATIVE, Urine Amphetamines Screen NEGATIVE, Urine Methamphetamines Screen NEGATIVE, Urine Benzodiazepines Screen NEGATIVE, Urine Cocaine Screen NEGATIVE, Urine Cannabinoids Screen POSITIVEH 04/09/21 13:05: Glucometer 180H 04/09/21 15:46: Glucometer 198H 04/09/21 20:38: Glucometer 237H 04/10/21 05:20: Glucometer 291H 04/10/21 06:19: White Blood Count 11.3H, Red Blood Count 4.22L, Hemoglobin 12.4L, Hematocrit 38L , Mean Corpuscular Volume 90, Mean Corpuscular Hemoglobin 29, Mean Corpuscular Hemoglobin Concent 33, Red Cell Distribution Width 12.4, Platelet Count 206, Mean Platelet Volume 9.6, Immature Granulocyte % (Auto) 0, Neutrophils (%) (Auto) 82H, Lymphocytes (%) (Auto) 13, Monocytes (%) (Auto) 4, Eosinophils (%) (Auto) 0, Basophils (%) (Auto) 1, Neutrophils # (Auto) 9.2H, Lymphocytes # (Auto) 1.5, Monocytes # (Auto) 0.5, Eosinophils # (Auto) 0.0, Basophils # (Auto) 0.1, Immature Granulocyte # (Auto) 0.1, Sodium Level 135, Potassium Level 3.8, Chloride Level 105, Carbon Dioxide Level 17L, Anion Gap 13, Blood Urea Nitrogen 21H, Creatinine 0.82, Estimat Glomerular Filtration Rate 108, BUN/Creatinine Ratio 26, Glucose Level 309H, Calcium Level 7.9L, Corrected Calcium 8.5, Total B ilirubin 0.7, Aspartate Amino Transf (AST/SGOT) 22, Alanine Aminotransferase (ALT/SGPT) 33, Alkaline Phosphatase 71, Total Protein 5.2L, Albumin 3.2 Microbiology 04/09/21 Blood Culture - Preliminary, Resulted Probable Coag Negative Staph Assessment/Plan Assessment/Plan Assess & Plan/Chief Complaint A 35-year-old male with epigastric pain, nausea and vomiting with history of insulin-dependent diabetes, cannabis use, PUD VSS Continue with conservative management with PPI BID, carafate, pain and nausea meds Clear liquids Had a recent EGD this year, therefore we do not believe he needs another at this time Clinical Quality Measures DVT/VTE Risk/Contraindication: Contraindications-Pharm: Other *list below* Other: ANNE Cary CHEF'S ASSISTANT Apr 10, 2021 10:03
[2021-04-10] MEDS: fentaNYL INJ 100 MCG/2 ML AMP IVP PRN ×5 (11:02→22:47)
--- NOTE | 2021-04-10 11:49 | Progress Note - Hospitalist ---
Subjective HPI/CC On Admission Date Seen by Provider: Apr 10, 2021 Time Seen by Provider: 11:00 Chief complaint: Hematemesis History present illness: This is a 35-year-old white male type I diabetic who presented to the ER with nausea and vomiting with blood in the emesis. He was admitted placed on Accu-Cheks every 4 hours due to type [address] PEARSON has been consulted. Subjective/Events-last exam Patient still complaining of abdominal pain Requires a great deal of narcotics and antiemetics when he is admitted Blood sugars monitored Review of Systems Gastrointestinal: Nausea, Vomiting, Abdominal Pain Focused Exam Lactate Level 04/09/21 08:05: Lactic Acid Level 2.08*H 04/09/21 10:46: Lactic Acid Level 1.55 Objective Exam Vital Signs Vital Signs Date Time Temp Pulse Resp B/P (MAP) Pulse Ox O2 Delivery O2 Flow Rate FiO2 04/10/21 16:00 37.3 85 20 167/76 (106) 99 Room Air 04/09/21 13:24 21 Capillary Refill : Less Than 3 Seconds General Appearance: No Apparent Distress, WD/WN, Chronically ill Respiratory: Lungs Clear, Normal Breath Sounds Cardiovascular: Regular Rate, Rhythm Neurologic/Psychiatric: Alert, Oriented x3, No Motor/Sensory Deficits, Normal Mood/Affect Results/Procedures Lab Laboratory Tests 04/10/21 06:19 Patient resulted labs reviewed. Assessment/Plan Assessment and Plan Assess & Plan/Chief Complaint Assessment: Hematemesis Nausea and vomiting Type 1 diabetes Early DKA Plan: Adjust insulin Check stat BMP Critical Care Critically Ill Patient Clinical Quality Measures DVT/VTE Risk/Contraindication: Contraindications-Pharm: Other *list below* Other: CARLOS Ohara DO Apr 10, 2021 11:49
[2021-04-10 12:00] VITALS: BP 134/60
[2021-04-10] MEDS: PROMETHAZINE INJ 25 MG/ML (PHENERGAN) AMP IM PRN ×3 (12:48→21:38)
[2021-04-10 16:00] VITALS: BP 167/76
[2021-04-10 17:03] LABS: CALCIUM 7.9 MG/DL (8.5-10.1)
[2021-04-10 17:08] LABS: CREATININE SERUM 0.81 MG/DL (0.60-1.30)
[2021-04-10 20:04] VITALS: BP 138/63
[2021-04-11 00:42] VITALS: BP 127/60
[2021-04-11] MEDS: fentaNYL INJ 100 MCG/2 ML AMP IVP PRN ×6 (01:30→12:27)
[2021-04-11] MEDS: ONDANSETRON 4 MG/2 ML (SDV) Z0FRAN IVP PRN ×5 (01:33→21:40)
[2021-04-11] MEDS: RT-ALBUTEROL/IPRATROPIUM 3 ML (DUONEB) VIAL INH SCH ×4 (02:33→21:03)
[2021-04-11] MEDS: PROMETHAZINE INJ 25 MG/ML (PHENERGAN) AMP IM PRN ×3 (03:24→11:40)
[2021-04-11 03:31] VITALS: BP 143/75
[2021-04-11] MEDS: NS IV 1000 ML 1,000 ML IV SCH ×3 (04:43→21:37)
[2021-04-11] MEDS: SUCRALFATE 1 GM (CARAFATE) TAB PO SCH ×4 (05:39→21:41)
[2021-04-11] MEDS: METOCLOPRAMIDE INJ 10 MG/2 ML (REGLAN) IVP SCH ×4 (05:39→23:52)
[2021-04-11 06:05] LABS: BASOPHILS % (AUTO) 0 % (0-10); EOSINOPHILS % (AUTO) 0 % (0-10); HEMATOCRIT 33 % (40-54); HEMOGLOBIN 10.9 g/dL (13.3-17.7); LYMPHOCYTES # (AUTO) 1.4 10^3/uL (1.0-4.0); LYMPHOCYTES % (AUTO) 18 % (12-44); MEAN CORPUSCULAR HEMOGLOBIN 29 pg (25-34); MEAN CORPUSCULAR HGB CONC 34 g/dL (32-36); MEAN CORPUSCULAR VOLUME 88 fL (80-99); MEAN PLATELET VOLUME 9.1 fL (9.0-12.2); MONOCYTES # (AUTO) 0.3 10^3/uL (0.0-1.0); MONOCYTES % (AUTO) 4 % (0-12); NEUTROPHILS # (AUTO) 5.8 10^3/uL (1.8-7.8); NEUTROPHILS % (AUTO) 77 % (42-75); PLATELET COUNT 172 10^3/uL (130-400); WHITE BLOOD COUNT 7.5 10^3/uL (4.3-11.0)
[2021-04-11 06:25] LABS: ALBUMIN 3.1 GM/DL (3.2-4.5); BILIRUBIN,TOTAL 0.5 MG/DL (0.1-1.0); CREATININE SERUM 0.71 MG/DL (0.60-1.30); POTASSIUM 3.5 MMOL/L (3.6-5.0); TOTAL PROTEIN 5.1 GM/DL (6.4-8.2)
[2021-04-11] MEDS: inSUlin ASPART (NovoLOG) 1 UNIT/0.01 ML (CHARGE PER UNIT) SC SCH ×4 (06:26→21:38)
[2021-04-11] MEDS: PANTOPRAZOLE 40 MG (PROTONIX) VIAL IV SCH ×2 (07:22→21:38)
[2021-04-11 08:00] VITALS: BP 167/91
[2021-04-11 12:00] VITALS: BP 167/64
[2021-04-11] MEDS ORDERED: ASPI-789 PO ×2 (13:19)
[2021-04-11] MEDS ORDERED: INSU100I10 SQ ×2 (13:19)
[2021-04-11] MEDS ORDERED: INSU100I55 SQ ×2 (13:19)
[2021-04-11] MEDS ORDERED: PANT40TA52 PO ×2 (13:20)
--- NOTE | 2021-04-11 13:43 | Progress Note ---
Subjective Subjective/Events-last exam 35 yo M known Type I DM that presents with abdominal pain and hematemesis. States that his pain is about the same as yesterday. States that he has not vomited but has been spitting up some phelgm. Tolerating ambulation. Review of Systems General: Chills, Fatigue Cardiovascular: No: Chest Pain, Palpitations Gastrointestinal: Nausea, Abdominal Pain Genitourinary: No Dysuria, No Frequency Neurological: No: Weakness, Incoordination Focused Exam Lactate Level 04/09/21 08:05: Lactic Acid Level 2.08*H 04/09/21 10:46: Lactic Acid Level 1.55 Objective Exam Last Set of Vital Signs Vital Signs Date Time Temp Pulse Resp B/P (MAP) Pulse Ox O2 Delivery O2 Flow Rate FiO2 04/11/21 12:00 37.6 88 18 167/64 (98) 97 Room Air 04/09/21 13:24 21 Capillary Refill : Less Than 3 Seconds I&O Intake and Output 04/11/21 00:00 Intake Total 2170 ml Balance 2170 ml Intake Oral 2170 ml # Voids 7 # Bowel Movements 3 # Emeses 2 General: Alert, Oriented X3, No Acute Distress Lungs: Clear to Auscultation, Normal Air Movement Heart: Regular Rate, No Murmurs Abdomen: Normal Bowel Sounds, Soft, Other (mild epigastric ttp, no rebound or guarding) Extremities: No Edema, No Tenderness/Swelling Neuro: Normal Speech, Strength at 5/5 X4 Ext, Sensation Intact, Cranial Nerves 3-12 NL Results/Procedures Lab Laboratory Tests 04/10/21 15:54: Glucometer 316H 04/10/21 16:45: Sodium Level 134L, Potassium Level 4.0, Chloride Level 104, Carbon Dioxide Level 18L, Anion Gap 12, Blood Urea Nitrogen 21H, Creatinine 0.81, Estimat Glomerular Filtration Rate 110, BUN/Creatinine Ratio 26, Glucose Level 304H, Calcium Level 7.9L, Beta-Hydroxybutyrate (Chem panel) 3.03H 04/10/21 20:17: Glucometer 221H 04/11/21 05:48: Sodium Level 138, Potassium Level 3.5L, Chloride Level 107, Carbon Dioxide Level 21, Anion Gap 10, Blood Urea Nitrogen 20H, Creatinine 0.71, Estimat Glomerular Filtration Rate 128, BUN/Creatinine Ratio 28, Glucose Level 102, Calcium Level 8.0L, White Blood Count 7.5, Red Blood Count 3.71L, Hemoglobin 10.9L, Hematocrit 33L, Mean Corpuscular Volume 88, Mean Corpuscular Hemoglobin 29, Mean Corpuscular Hemoglobin Concent 34, Red Cell Distribution Width 12.0, Platelet Count 172, Mean Platelet Volume 9.1, Immature Granulocyte % (Auto) 0, Neutrophils (%) (Auto) 77H, Lymphocytes (%) (Auto) 18, Monocytes (%) (Auto) 4, Eosinophils (%) (Auto) 0, Basophils (%) (Auto) 0, Neutrophils # (Auto) 5.8, Lymphocytes # (Auto) 1.4, Monocytes # (Auto) 0.3, Eosinophils # (Auto) 0.0, Basophils # (Auto) 0.0, Immature Granulocyte # (Auto) 0.0, Corrected Calcium 8.7, Total Bilirubin 0.5, Aspartate Amino Transf (AST/SGOT) 18, Alanine Aminotransferase (ALT/SGPT) 25, Alkaline Phosphatase 59, Total Protein 5.1L, Albumin 3.1L 04/11/21 11:04: Glucometer 180H Microbiology 04/09/21 Blood Culture - Preliminary, Resulted Staph, 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) Assessment/Plan Assessment/Plan Admission Status: Observation (1) Hematemesis Status: Acute Assessment & Plan: 04/11: Dr Ca consulted Qualifiers: Qualified Codes: K92.0 - Hematemesis (2) Nausea & vomiting Status: Acute Assessment & Plan: 04/11: Improving but the pain is still present, Al[place] and Shermann available Qualifiers: Qualified Codes: R11.2 - Nausea with vomiting, unspecified (3) Generalized abdominal pain Status: Acute Assessment & Plan: 04/11: Stopped IV pain medication and switched to PO (4) Type 1 diabetes Status: Acute Assessment & Plan: 04/11: A1c pending, blood sugars have been running high, insulin adjusted Qualifiers: Qualified Codes: E10.69 - Type 1 diabetes mellitus with other specified complication Clinical Quality Measures DVT/VTE Risk/Contraindication: Contraindications-Pharm: Other *list below* Other: ALFRED Li MD Apr 11, 2021 13:43
[2021-04-11] MEDS: HYDROcodone/APAP 5 MG/325 MG (LORTAB) TAB PO PRN ×2 (14:08→21:41)
[2021-04-11 16:33] VITALS: BP 124/66
[2021-04-11] MEDS: KETOROLAC 30 MG/ML VIAL IVP PRN (17:33)
[2021-04-11 20:00] VITALS: BP 131/87
[2021-04-11] MEDS ORDERED: ACETAMINOPHEN 500 MG TAB (TYLENOL) PO PRN (20:00)
[2021-04-11] MEDS ORDERED: NON-FORMULARY MEDICATION 1 EA EA (Gabapentin 800 MG) PO SCH (21:00)
[2021-04-11] MEDS: GABAPENTIN 400 MG (NEURONTIN) CAP PO SCH (21:41)
[2021-04-12] VITALS: BP 169/86
[2021-04-12] MEDS: RT-ALBUTEROL/IPRATROPIUM 3 ML (DUONEB) VIAL INH SCH ×4 (02:16→20:37)
[2021-04-12] MEDS: ONDANSETRON 4 MG/2 ML (SDV) Z0FRAN IVP PRN ×3 (02:25→21:14)
[2021-04-12] MEDS: KETOROLAC 30 MG/ML VIAL IVP PRN ×3 (02:26→19:02)
[2021-04-12 04:00] VITALS: BP 138/77
[2021-04-12] MEDS: METOCLOPRAMIDE INJ 10 MG/2 ML (REGLAN) IVP SCH ×4 (05:28→23:34)
[2021-04-12] MEDS: inSUlin ASPART (NovoLOG) 1 UNIT/0.01 ML (CHARGE PER UNIT) SC SCH ×4 (05:28→21:15)
[2021-04-12] MEDS: HYDROcodone/APAP 5 MG/325 MG (LORTAB) TAB PO PRN ×4 (05:28→21:15)
[2021-04-12] MEDS: SUCRALFATE 1 GM (CARAFATE) TAB PO SCH ×4 (05:28→21:14)
[2021-04-12] MEDS: NS IV 1000 ML 1,000 ML IV SCH ×3 (05:29→21:14)
[2021-04-12 06:33] LABS: BASOPHILS % (AUTO) 1 % (0-10); EOSINOPHILS % (AUTO) 0 % (0-10); HEMATOCRIT 32 % (40-54); LYMPHOCYTES # (AUTO) 1.5 10^3/uL (1.0-4.0); LYMPHOCYTES % (AUTO) 24 % (12-44); MEAN CORPUSCULAR HEMOGLOBIN 29 pg (25-34); MEAN CORPUSCULAR HGB CONC 34 g/dL (32-36); MEAN CORPUSCULAR VOLUME 86 fL (80-99); MEAN PLATELET VOLUME 9.6 fL (9.0-12.2); MONOCYTES # (AUTO) 0.3 10^3/uL (0.0-1.0); MONOCYTES % (AUTO) 6 % (0-12); NEUTROPHILS # (AUTO) 4.2 10^3/uL (1.8-7.8); NEUTROPHILS % (AUTO) 69 % (42-75); PLATELET COUNT 169 10^3/uL (130-400); WHITE BLOOD COUNT 6.1 10^3/uL (4.3-11.0)
[2021-04-12 06:44] LABS: ALBUMIN 3.2 GM/DL (3.2-4.5); POTASSIUM 3.4 MMOL/L (3.6-5.0)
[2021-04-12 06:46] LABS: CALCIUM 7.7 MG/DL (8.5-10.1)
[2021-04-12 06:48] LABS: BILIRUBIN,TOTAL 0.7 MG/DL (0.1-1.0)
[2021-04-12 06:50] LABS: CREATININE SERUM 0.67 MG/DL (0.60-1.30)
[2021-04-12 08:26] VITALS: BP 170/81
[2021-04-12] MEDS ORDERED: KCL 20 MEQ TAB (K-DUR) PO ONE (09:00)
[2021-04-12] MEDS: GABAPENTIN 400 MG (NEURONTIN) CAP PO SCH ×3 (09:33→21:14)
[2021-04-12] MEDS: lisINopril 10 MG (PRINIVIL) TABLET PO SCH (09:34)
[2021-04-12] MEDS: PANTOPRAZOLE 40 MG (PROTONIX) VIAL IV SCH (09:35)
[2021-04-12 11:33] VITALS: BP 136/70
[2021-04-12 16:00] VITALS: BP_SYST 115; BP_SYST 92; BP_DIAS 48; BP_DIAS 55
[2021-04-12 19:30] VITALS: BP 156/91
--- NOTE | 2021-04-12 20:16 | Progress Note ---
Subjective Subjective/Events-last exam Patient tolerating PO diet. States that pain has improved. Review of Systems Pulmonary: No Dyspnea, No Cough Cardiovascular: No: Chest Pain, Palpitations, Edema Gastrointestinal: Nausea; No: Vomiting, Abdominal Pain, Diarrhea, Constipation Neurological: No: Weakness, Incoordination Objective Exam Last Set of Vital Signs Vital Signs Date Time Temp Pulse Resp B/P (MAP) Pulse Ox O2 Delivery O2 Flow Rate FiO2 04/12/21 19:30 37.7 88 18 156/91 (112) 98 Room Air 04/09/21 13:24 21 Capillary Refill : Less Than 3 Seconds I&O Intake and Output 04/12/21 00:00 Intake Total 1890 ml Balance 1890 ml Intake Oral 1890 ml # Voids 7 General: Alert, Oriented X3, Cooperative, No Acute Distress HEENT: Mucous Memb Moist/Gorman Lungs: Clear to Auscultation, Normal Air Movement Heart: Regular Rate, No Murmurs Abdomen: Normal Bowel Sounds, Soft, Other (mild epigastric pain, no rebound or guarding) Extremities: No Edema, No Tenderness/Swelling Neuro: Normal Speech, Sensation Intact, Cranial Nerves 3-12 NL Psych/Mental Status: Mental Status NL, Mood NL Results/Procedures Lab Laboratory Tests 04/12/21 05:20: Glucometer 175H 04/12/21 06:02: White Blood Count 6.1, Red Blood Count 3.76L, Hemoglobin 11.0L, Hematocrit 32L, Mean Corpuscular Volume 86, Mean Corpuscular Hemoglobin 29, Mean Corpuscular Hemoglobin Concent 34, Red Cell Distribution Width 11.6, Platelet Count 169, Mean Platelet Volume 9.6, Immature Granulocyte % (Auto) 0, Neutrophils (%) (Auto) 69, Lymphocytes (%) (Auto) 24, Monocytes (%) (Auto) 6, Eosinophils (%) (Auto) 0, Basophils (%) (Auto) 1, Neutrophils # (Auto) 4.2, Lymphocytes # (Auto) 1.5, Monocytes # (Auto) 0.3, Eosinophils # (Auto) 0.0, Basophils # (Auto) 0.0, Immature Granulocyte # (Auto) 0.0, Sodium Level 134L, Potassium Level 3.4L, Chloride Level 102, Carbon Dioxide Level 22, Anion Gap 10, Blood Urea Nitrogen 12, Creatinine 0.67, Estimat Glomerular Filtration Rate 137, BUN/Creatinine Ratio 18, Glucose Level 189H, Calcium Level 7.7L, Corrected Calcium 8.3L, Total Bilirubin 0.7, Aspartate Amino Transf (AST/SGOT) 18, Alanine Aminotransferase (ALT/SGPT) 22, Alkaline Phosphatase 57, Total Protein 5.0L, Albumin 3.2 04/12/21 10:29: Glucometer 286H 04/12/21 16:00: Glucometer 367H 04/12/21 20:09: Glucometer 363H Microbiology 04/09/21 Blood Culture - Preliminary, Resulted Staph, 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) Assessment/Plan Assessment/Plan (1) Hematemesis Status: Acute Assessment & Plan: 04/11: Dr Ca consulted 04/12: Medical management, patient had normal EGD earlier this year, no further episodes Qualifiers: Qualified Codes: K92.0 - Hematemesis (2) Nausea & vomiting Status: Resolved Assessment & Plan: 04/11: Improving but the pain is still present, Zofran and Phenergen available Qualifiers: Qualified Codes: R11.2 - Nausea with vomiting, unspecified (3) Generalized abdominal pain Status: Acute Assessment & Plan: 04/11: Stopped IV pain medication and switched to PO (4) Type 1 diabetes Status: Acute Assessment & Plan: 04/11: A1c pending, blood sugars have been running high, insulin adjusted Qualifiers: Qualified Codes: E10.69 - Type 1 diabetes mellitus with other specified complication Clinical Quality Measures DVT/VTE Risk/Contraindication: Contraindications-Pharm: Other *list below* Other: ALFRED Li MD Apr 12, 2021 20:16
[2021-04-12] MEDS: PANTOPRAZOLE 40 MG (PROTONIX) TAB PO SCH (21:15)
[2021-04-13 00:49] VITALS: BP 163/78
[2021-04-13] MEDS: RT-ALBUTEROL/IPRATROPIUM 3 ML (DUONEB) VIAL INH SCH ×2 (02:37→08:36)
[2021-04-13] MEDS: HYDROcodone/APAP 5 MG/325 MG (LORTAB) TAB PO PRN ×2 (03:14→09:49)
[2021-04-13 04:31] VITALS: BP 169/92
[2021-04-13] MEDS: NS IV 1000 ML 1,000 ML IV SCH (05:16)
[2021-04-13] MEDS: SUCRALFATE 1 GM (CARAFATE) TAB PO SCH ×2 (05:17→11:07)
[2021-04-13] MEDS: KETOROLAC 30 MG/ML VIAL IVP PRN (05:17)
[2021-04-13] MEDS: METOCLOPRAMIDE INJ 10 MG/2 ML (REGLAN) IVP SCH (05:17)
[2021-04-13] MEDS: inSUlin ASPART (NovoLOG) 1 UNIT/0.01 ML (CHARGE PER UNIT) SC SCH ×2 (05:18→11:07)
[2021-04-13 07:35] LABS: BASOPHILS # (AUTO) 0.1 10^3/uL (0.0-0.1); BASOPHILS % (AUTO) 1 % (0-10); EOSINOPHILS # (AUTO) 0.1 10^3/uL (0.0-0.3); EOSINOPHILS % (AUTO) 2 % (0-10); HEMATOCRIT 31 % (40-54); HEMOGLOBIN 10.6 g/dL (13.3-17.7); LYMPHOCYTES # (AUTO) 1.8 10^3/uL (1.0-4.0); LYMPHOCYTES % (AUTO) 34 % (12-44); MEAN CORPUSCULAR HEMOGLOBIN 29 pg (25-34); MEAN CORPUSCULAR HGB CONC 34 g/dL (32-36); MEAN CORPUSCULAR VOLUME 85 fL (80-99); MEAN PLATELET VOLUME 9.9 fL (9.0-12.2); MONOCYTES # (AUTO) 0.4 10^3/uL (0.0-1.0); MONOCYTES % (AUTO) 7 % (0-12); NEUTROPHILS # (AUTO) 3.1 10^3/uL (1.8-7.8); NEUTROPHILS % (AUTO) 56 % (42-75); PLATELET COUNT 165 10^3/uL (130-400); WHITE BLOOD COUNT 5.4 10^3/uL (4.3-11.0)
[2021-04-13 07:49] LABS: ALBUMIN 3.2 GM/DL (3.2-4.5); BILIRUBIN,TOTAL 0.4 MG/DL (0.1-1.0); CREATININE SERUM 0.73 MG/DL (0.60-1.30); POTASSIUM 3.2 MMOL/L (3.6-5.0); TOTAL PROTEIN 5.1 GM/DL (6.4-8.2)
[2021-04-13 07:58] VITALS: BP 175/101
[2021-04-13] MEDS: lisINopril 10 MG (PRINIVIL) TABLET PO SCH (09:45)
[2021-04-13] MEDS: PANTOPRAZOLE 40 MG (PROTONIX) TAB PO SCH (09:45)
[2021-04-13] MEDS: GABAPENTIN 400 MG (NEURONTIN) CAP PO SCH (09:45)
--- NOTE | 2021-04-13 10:15 | Discharge Summary ---
Diagnosis/Chief Complaint Date of Admission Apr 09, 2021 at 12:22 Date of Discharge 04/13/2021 Admission Diagnosis Admission Diagnosis See problem list Discharge Diagnosis See Below Problems/Diagnosis: (1) Hematemesis Assessment & Plan: 04/11: Dr Ca consulted 04/12: Medical management, patient had normal EGD earlier this year, no further episodes Qualifiers: Qualified Codes: K92.0 - Hematemesis Status: Acute (2) Nausea & vomiting Assessment & Plan: 04/11: Improving but the pain is still present, Zofran and Phenergen available Qualifiers: Qualified Codes: R11.2 - Nausea with vomiting, unspecified Status: Resolved Resolution Date/Time: 04/12/21 @ 20:16 (3) Generalized abdominal pain Assessment & Plan: 04/11: Stopped IV pain medication and switched to PO Status: Acute (4) Type 1 diabetes Assessment & Plan: 04/11: A1c pending, blood sugars have been running high, insulin adjusted Qualifiers: Qualified Codes: E10.69 - Type 1 diabetes mellitus with other specified complication Status: Acute Discharge Summary-Simple/Stand Consultations Discharge Physical Examination Allergies: Coded Allergies: tramadol (Verified Adverse Reaction, Mild, N/V, 12/21/14) Vitals & I&Os Vital Sign - Last 12Hours Date Time Temp Pulse Resp B/P (MAP) Pulse Ox O2 Delivery O2 Flow Rate FiO2 04/13/21 08:38 96 Room Air 04/13/21 07:58 37.7 76 16 175/101 (125) 04/09/21 13:24 21 Intake and Output 04/13/21 00:00 Intake Total 2695 ml Balance 2695 ml Hospital Course See final discharge diagnosis. Discharge Instructions to patient/family Please see electronic discharge instructions given to patient. Discharge Medications Reviewed and agree with Discharge Medication list on patient's Discharge Instruction sheet Clinical Quality Measures DVT/VTE Risk/Contraindication: Contraindications-Pharm: Other *list below* Other: ALFRED Li MD Apr 13, 2021 10:15
[2021-04-13] MEDS ORDERED: SUCR1TAB PO ×2 (10:17)
[2021-04-13] MEDS ORDERED: LISI10TA25 PO ×2 (10:17)
--- NOTE | 2021-04-13 10:17 | Discharge Summary ---
Discharge [facility] Reconcile Patient Problems Problems Reviewed?: Yes Discharge Medications New, Converted or Re-Newed RX: Transmitted to Pharmacy New Medications: Lisinopril (Lisinopril) 10 Mg Tablet 10 MG PO DAILY, #30 TAB Sucralfate (Sucralfate) 1 Gm Tablet 1 GM PO ACHS, #90 TAB Continued Medications: Aspirin/Acetaminophen/Caffeine (Excedrin Migraine Caplet) 1 Each Tablet 2 EACH PO Q6-8HR PRN for Headache, TAB Gabapentin (Gabapentin) 800 Mg Tablet 800 MG PO TID, TAB Insulin Aspart (Insulin Aspart Flexpen) 100 Unit/1 Ml Insuln.pen 5 UNIT SQ AC, EA Insulin Glargine,Hum.rec.anlog (Lantus Solostar) 100 Unit/1 Ml Insuln.pen 45 UNIT SQ HS, EA Multivitamin (Multivitamin) 1 Each Tablet 1 EACH PO DAILY, TAB Pantoprazole Sodium (Pantoprazole Sodium) 40 Mg Tablet.dr 40 MG PO DAILY, TAB Patient Instructions Goal/Follow Up Appt: F/u with Wendi Valdes in 1-2 weeks Activity & Diet Discharge Diet: Eat Small Frequent Meals Activity as Tolerated: Yes ALFRED MORGAN MD Apr 13, 2021 10:17
[2021-04-13 11:07] VITALS: BP 175/101
== END 2021-04-13 11:09 | disposition home or self-care (01) ==
LOC: EDUNIT# 07:44 → ER 07:46 → ICU 12:22 → 4TH 21:41
PROVIDERS: ADMIT Internal Medicine; ATTEND Family Medicine
DX: K92.0 Hematemesis (principal); E10.9 Type 1 diabetes mellitus without complications; R10.84 Generalized abdominal pain; R00.1 Bradycardia, unspecified; R06.02 Shortness of breath; Z90.49 Acquired absence of other specified parts of digestive tract; Z79.899 Other long term (current) drug therapy; Z79.2 Long term (current) use of antibiotics; Z79.891 Long term (current) use of opiate analgesic; J44.9 Chronic obstructive pulmonary disease, unspecified; I10 Essential (primary) hypertension; E10.40 Type 1 diabetes mellitus with diabetic neuropathy, unspecified; K21.00 Gastro-esophageal reflux disease with esophagitis, without bleeding; M19.90 Unspecified osteoarthritis, unspecified site; G89.29 Other chronic pain; M54.9 Dorsalgia, unspecified; F32.A Depression, unspecified; E10.10 Type 1 diabetes mellitus with ketoacidosis without coma; K29.70 Gastritis, unspecified, without bleeding
CPT/HCPCS: 71045; 74177; 80048; 80053 ×5; 80306; 81000; 82010; 82947 ×5; 83036; 83605; 83690; 83735; 84145; 85025 ×5; 86141; 87040; 87636; 93005; 93041; 94640 ×5; 96361; 96374; 96375; 96376; 99285; G0378; G0480; 36415; 80320

== ENCOUNTER 2021-04-16 18:13 | Emergency (ER) | payer SELFPAY ==
[~2021-04-16] VITALS: Ht 175.2 cm; Wt 80.8 kg
[~2021-04-16 18:13] MED LIST changes: +ASPI-789 PO; +INSU100I55 SQ; +LISI10TA25 PO; +PANT40TA52 PO
[2021-04-16 18:50] LABS: BASOPHILS % (AUTO) 1 % (0-10); EOSINOPHILS # (AUTO) 0.4 10^3/uL (0.0-0.3); EOSINOPHILS % (AUTO) 7 % (0-10); HEMATOCRIT 34 % (40-54); HEMOGLOBIN 11.2 g/dL (13.3-17.7); LYMPHOCYTES # (AUTO) 1.9 10^3/uL (1.0-4.0); LYMPHOCYTES % (AUTO) 35 % (12-44); MEAN CORPUSCULAR HEMOGLOBIN 30 pg (25-34); MEAN CORPUSCULAR HGB CONC 33 g/dL (32-36); MEAN CORPUSCULAR VOLUME 91 fL (80-99); MONOCYTES # (AUTO) 0.4 10^3/uL (0.0-1.0); MONOCYTES % (AUTO) 8 % (0-12); NEUTROPHILS # (AUTO) 2.7 10^3/uL (1.8-7.8); NEUTROPHILS % (AUTO) 50 % (42-75); PLATELET COUNT 176 10^3/uL (130-400); WHITE BLOOD COUNT 5.5 10^3/uL (4.3-11.0)
--- NOTE | 2021-04-16 18:53 | ED Lower Extremity ---
General Chief Complaint: Lower Extremity Stated Complaint: L EXT SWELLING Nursing Triage Note: Pt arrival to ER with complaint of bilateral leg swelling since sunday night. PT states that he was discharged Sunday night after several night stay in our facility for stomach issues. Pt states that since the stay his legs keep swelling. Pt states that when at home with his feet elevated they lesson, but when working they swell significantly. PT states that they are starting to hurt. Pain at a 7/10. Source: patient Exam Limitations: no limitations History of Present Illness Date Seen by Provider: Apr 16, 2021 Time Seen by Provider: 18:30 Initial Comments To ER with bilateral lower extremity swelling. Seems to be worse after being on his feet all day today. Was recently hospitalized for abdominal pain nausea vomiting. Onset: just prior to arrival Severity: moderate Pain/Injury Location: bilateral leg Method of Injury: unknown Allergies and Home Medications Allergies Coded Allergies: tramadol (Verified Adverse Reaction, Mild, N/V, 12/21/14) Patient Home Medication List Home Medication List Reviewed: Yes Aspirin/Acetaminophen/Caffeine (Excedrin Migraine Caplet) 1 Each Tablet, 2 EACH PO Q6-8HR PRN for Headache, (Reported) Entered as Reported by: SAMRA MCCORD on 04/11/21 1319 Gabapentin (Gabapentin) 800 Mg Tablet, 800 MG PO TID, (Reported) Entered as Reported by: SAMRA MCCORD on 08/24/20 1424 Insulin Aspart (Insulin Aspart Flexpen) 100 Unit/1 Ml Insuln.pen, 5 UNIT SQ AC, (Reported) Entered as Reported by: SAMRA MCCORD on 04/11/21 1319 Insulin Glargine,Hum.rec.anlog (Lantus Solostar) 100 Unit/1 Ml Insuln.pen, 45 UNIT SQ HS, (Reported) Entered as Reported by: SAMRA MCCORD on 04/11/21 1319 Lisinopril (Lisinopril) 10 Mg Tablet, 10 MG PO DAILY Prescribed by: ALFRED MORGAN on 04/13/21 1017 Multivitamin (Multivitamin) 1 Each Tablet, 1 EACH PO DAILY, (Reported) Entered as Reported by: SAMRA MCCORD on 08/24/20 1424 Pantoprazole Sodium (Pantoprazole Sodium) 40 Mg Tablet.dr, 40 MG PO DAILY, (Reported) Entered as Reported by: SAMRA MCCORD on 04/11/21 1320 Sucralfate (Sucralfate) 1 Gm Tablet, 1 GM PO ACHS Prescribed by: ALFRED MORGAN on 04/13/21 1017 Discontinued Medications Acetaminophen (Tylenol Extra Strength) 500 Mg Tablet, 1,000 MG PO Q6H PRN for PAIN-MILD (1-4), (Reported) Discontinued Reason: No Longer Taking Entered as Reported by: SAMRA MCCORD on 08/24/20 1424 Amoxicillin (Amoxicillin) 500 Mg Capsule, 500 MG PO TID Discontinued Reason: No Longer Taking Prescribed by: ZACHERY BAKER on 02/27/211916 Azithromycin (Azithromycin) 250 Mg Tablet, 250 MG PO DAILY Discontinued Reason: No Longer Taking Prescribed by: GRIFFIN MURO on 09/15/20 1624 Metoclopramide HCl (Reglan) 10 Mg Tablet, 10 MG PO ACHS Discontinued Reason: No Longer Taking Prescribed by: CARLOS MCLEAN on 08/27/20623 Ondansetron (Ondansetron Odt) 8 Mg Tab.rapdis, 8 MG PO Q6H PRN for NAUSEA/VOMITING Discontinued Reason: No Longer Taking Prescribed by: ZACHERY BAEKR on 02/27/211916 Oxycodone Hcl (Oxyir Tablet) 5 Mg Tab, 5 MG PO TID PRN for PAIN-SEVERE (8-10) Discontinued Reason: No Longer Taking Prescribed by: CARLOS MCLEAN on 08/27/20 1209 Pantoprazole Sodium (Protonix) 40 Mg Tablet.dr, 40 MG PO DAILY Discontinued Reason: Duplicate Order Prescribed by: CARLOS MCLEAN on 08/27/20623 Sucralfate (Sucralfate) 1 Gm Tablet, 1 GM PO ACHS Discontinued Reason: No Longer Taking Prescribed by: CARLOS MCLEAN on 08/27/20623 Review of Systems Constitutional: see HPI EENTM: see HPI Respiratory: no symptoms reported Cardiovascular: no symptoms reported Genitourinary: no symptoms reported Musculoskeletal: no symptoms reported Skin: no symptoms reported Psychiatric/Neurological: No Symptoms Reported Past [id number] Hx Patient Social History Tobacco Use?: No Use of E-Cig and/or Vaping dev: No Substance use?: Yes Substance type: Marijuana Substance frequency: Daily Alcohol Use?: No Pt feels they are or have been: No Immunizations Up To Date Tetanus Booster (TDap): Unknown Influenza Vaccine Up-to-Date: No; Not Current First/Initial COVID19 Vaccinat: 08/11/2020 Second COVID19 Vaccination Kumar: 09/10/2020 Third COVID19 Vaccination Date: 08/11/2020 COVID19 Vaccine [employer] Worker: [email or web address] Seasonal Allergies Seasonal Allergies: No Past Medical History Surgeries: Yes Abdominal, Gallbladder Respiratory: Yes (copd dx by patient) COPD Currently Using CPAP: No Currently Using BIPAP: No Cardiac: Yes Hypertension Neurological: Yes Neuropathy Reproductive Disorders: No Sexually Transmitted Disease: No HIV/AIDS: No Genitourinary: Yes Kidney Infection Gastrointestinal: Yes (ELEVATED LIVER ENZYMES, Hep A) Gastroesophageal Reflux, Liver Disease/Jaundice, Esophagitis Musculoskeletal: Yes Arthritis, Scoliosis, Chronic Back Pain Endocrine: Yes (Type I) Diabetes, Insulin dep HEENT: No Hearing Impairment: Denies Cancer: No Psychosocial: Yes (POLYSUBSTANCE ABUSE) Depression Integumentary: No Blood Disorders: No Adverse Reaction/Blood Tranf: No Family Medical History Alcoholism 19 FATHER G8 BROTHER Congenital heart disease 19 FATHER Family history: Cardiovascular disease 19 FATHER, Onset:40's - 50 Family history: Diabetes mellitus 19 MOTHER Family history: Hypertension 19 FATHER Heart disease 19 FATHER History of - respiratory disease 19 FATHER History of drug abuse 19 MOTHER Hypercholesterolemia 19 FATHER Myocardial infarction 19 FATHER Seizure disorder 19 FATHER No Family History of: Abdominal aortic aneurysm [place]'s disease Cancer Congestive heart failure Cystic fibrosis Dementia Dysphagia Family history: Allergy Family history: Alzheimer's disease Family history: Arthritis Family history: Asthma Family history: Breast disease Family history: Coronary thrombosis Family history: Gastrointestinal disease Family history: Glaucoma Family history: Osteoporosis Family history: Thyroid disorder Headache Hearing loss Hereditary disease History of - anemia History of - disorder Human immunodeficiency virus (HIV) seropositivity Infertile Kidney disease Malignant neoplasm of lung Parkinson's disease Prostate cancer Psychotic disorder Stroke Tuberculosis Visual impairment No Pertinent Family Hx Physical Exam Vital Signs Vital Signs - First Documented 04/16/21 18:20 Temp 36.8 Pulse 87 Resp 16 B/P (MAP) 155/80 (105) Pulse Ox 97 O2 Delivery Room Air Capillary Refill : Less Than 3 Seconds Height, Weight, BMI Height: 5'10.00" Weight: 240lbs. 0oz. 108.520805kh; 26.00 BMI Method:Stated General Appearance: WD/WN, no apparent distress Neck: non-tender, full range of motion Hips: bilateral hip non-tender, bilateral hip normal inspection, bilateral hip normal range of motion Legs: bilateral leg pain, bilateral leg soft tissue tenderness, bilateral leg swelling (Taught 2+ pitting edema up to the knees) Knees: bilateral knee non-tender, bilateral knee normal inspection, bilateral knee normal range of motion Ankles: bilateral ankle normal range of motion, bilateral ankle swelling Neurologic/Psychiatric: alert, normal mood/affect, oriented x 3 Skin: normal color, warm/dry Lower extremity skin is normal without rash, no petechiae no ecchymosis no erythema Progress/Results/Core Measures Results/Orders Lab Results Laboratory Tests Test 04/16/21 18:44 Range/Units White Blood Count 5.5 4.3-11.0 10^3/uL Red Blood Count 3.79 L 4.30-5.52 10^6/uL Hemoglobin 11.2 L 13.3-17.7 g/dL Hematocrit 34 L 40-54 % Mean Corpuscular Volume 91 80-99 fL Mean Corpuscular Hemoglobin 30 25-34 pg Mean Corpuscular Hemoglobin Concent 33 32-36 g/dL Red Cell Distribution Width 12.3 10.0-14.5 % Platelet Count 176 130-400 10^3/uL Mean Platelet Volume 10.0 9.0-12.2 fL Immature Granulocyte % (Auto) 0 % Neutrophils (%) (Auto) 50 42-75 % Lymphocytes (%) (Auto) 35 12-44 % Monocytes (%) (Auto) 8 0-12 % Eosinophils (%) (Auto) 7 0-10 % Basophils (%) (Auto) 1 0-10 % Neutrophils # (Auto) 2.7 1.8-7.8 10^3/uL Lymphocytes # (Auto) 1.9 1.0-4.0 10^3/uL Monocytes # (Auto) 0.4 0.0-1.0 10^3/uL Eosinophils # (Auto) 0.4 H 0.0-0.3 10^3/uL Basophils # (Auto) 0.0 0.0-0.1 10^3/uL Immature Granulocyte # (Auto) 0.0 0.0-0.1 10^3/uL D-Dimer 0.30 0.00-0.49 UG/ML Sodium Level 138 135-145 MMOL/L Potassium Level 3.5 L 3.6-5.0 MMOL/L Chloride Level 101 98-107 MMOL/L Carbon Dioxide Level 26 21-32 MMOL/L Anion Gap 11 5-14 MMOL/L Blood Urea Nitrogen 12 7-18 MG/DL Creatinine 0.84 0.60-1.30 MG/DL Estimat Glomerular Filtration Rate 105 BUN/Creatinine Ratio 14 Glucose Level 322 H 70-105 MG/DL Calcium Level 8.5 8.5-10.1 MG/DL Corrected Calcium 8.7 8.5-10.1 MG/DL Total Bilirubin 0.3 0.1-1.0 MG/DL Aspartate Amino Transf (AST/SGOT) 24 5-34 U/L Alanine Aminotransferase (ALT/SGPT) 39 0-55 U/L Alkaline Phosphatase 98 40-136 U/L B-Type Natriuretic Peptide 41.0 <100.0 PG/ML Total Protein 6.3 L 6.4-8.2 GM/DL Albumin 3.8 3.2-4.5 GM/DL Thyroid Stimulating Hormone (TSH) 0.99 0.35-4.94 UIU/ML Free Thyroxine 1.10 0.70-1.48 NG/DL My Orders Orders - ZACHERY BAKER APRN Cbc With Automated Diff (04/16/21 18:33) Comprehensive Metabolic Panel (04/16/21 18:33) BNP (04/16/21 18:33) Thyroid Stimulating Hormone (04/16/21 18:33) Free T4 (Free Thyroxine) (04/16/21 18:33) Fibrin Degradation Products (04/16/21 18:39) Potassium Chloride (Tablet) (K Dur Table (04/16/21 19:45) Furosemide Tablet (Lasix Tablet) (04/16/21 19:45) Vital Signs/I&O 04/16/21 18:20 Temp 36.8 Pulse 87 Resp 16 B/P (MAP) 155/80 (105) Pulse Ox 97 O2 Delivery Room Air Blood Pressure Mean: 105 Departure Impression Primary Impression: Pedal edema Disposition: 01 HOME, SELF-CARE Condition: Stable Departure-Patient Inst. Decision time for Depature: 19:45 Referrals: [facility] (PCP/Family) Primary Care Physician Patient Instructions: Swelling Add. Discharge Instructions: 1. Elevate legs. Wear compression stockings during the day, off at night. All discharge instructions reviewed with patient and/or family. Voiced unde rstanding. ZACHERY BAKER [employer]END[employer] Apr 16, 2021 18:53
[2021-04-16 19:36] LABS: ALBUMIN 3.8 GM/DL (3.2-4.5); BILIRUBIN,TOTAL 0.3 MG/DL (0.1-1.0); CALCIUM 8.5 MG/DL (8.5-10.1); CREATININE SERUM 0.84 MG/DL (0.60-1.30); FREE T4 (FREE THYROXINE) 1.1 NG/DL (0.70-1.48); POTASSIUM 3.5 MMOL/L (3.6-5.0); TOTAL PROTEIN 6.3 GM/DL (6.4-8.2)
[2021-04-16] MEDS ORDERED: FUROSEMIDE 40 MG (LASIX) TAB PO ONE (19:45)
[2021-04-16] MEDS ORDERED: KCL 20 MEQ TAB (K-DUR) PO ONE (19:45)
[2021-04-16] MEDS ORDERED: ACHD5005 PO (20:11)
[2021-04-16 20:21] VITALS: BP 137/78
== END 2021-04-16 20:08 | disposition home or self-care (01) ==
LOC: EDUNIT# 18:13 → ER 18:15
DX: R60.9 Edema, unspecified (principal); J44.9 Chronic obstructive pulmonary disease, unspecified; I10 Essential (primary) hypertension; K21.9 Gastro-esophageal reflux disease without esophagitis; E10.9 Type 1 diabetes mellitus without complications; Z79.899 Other long term (current) drug therapy; Z79.82 Long term (current) use of aspirin
CPT/HCPCS: 36415; 80053; 83880; 84439; 84443; 85025; 85379; 99283

== ENCOUNTER 2021-04-30 19:08 | Inpatient (IN) | payer SELFPAY ==
[~2021-04-30] VITALS: Ht 177 cm; Wt 93.4 kg
[~2021-04-30 19:08] MED LIST changes: +CYCL10TA25 PO; -CYCL10TA9 PO
[2021-04-30] MEDS ORDERED: NS IV 1000 ML 1,000 ML IV ONE (19:30)
[2021-04-30] MEDS ORDERED: PANTOPRAZOLE 40 MG (PROTONIX) VIAL IV ONE (19:30)
[2021-04-30] MEDS ORDERED: NS IV 1000 ML 1,000 ML IV SCH (19:30)
[2021-04-30] MEDS ORDERED: fentaNYL INJ 100 MCG/2 ML AMP IVP ONE (19:30)
[2021-04-30] MEDS ORDERED: ONDANSETRON 4 MG/2 ML (SDV) Z0FRAN IVP ONE (19:30)
--- NOTE | 2021-04-30 19:31 | ED Abdominal Pain ---
General Stated Complaint: N/V Source of Information: Patient Exam Limitations: No Limitations History of Present Illness Date Seen by Provider: Apr 30, 2021 Time Seen by Provider: 19:15 Initial Comments Patient to ER by private conveyance from home with chief complaint that since this morning when he woke up he is been having nausea vomiting and epigastric abdominal pain. No diarrhea or fevers. He has not checked his blood sugar all day. He claims he took his Carafate, Protonix and Reglan with no relief of symptoms. He is not urinating today. He has a history of DKA related to type 1 diabetes. No known sick contacts. He got a Covid vaccine yesterday and influenza vaccine 2 weeks ago when he was in the hospital for diarrhea. He has a history of stomach ulcers and has had his gallbladder surgically removed. Couple weeks ago Dr. Ca was consulting with Dr. Morgan and had a EGD performed for hematemesis, gastric ulcers. Allergies and Home Medications Allergies Coded Allergies: tramadol (Verified Adverse Reaction, Mild, N/V, 12/21/14) Patient Home Medication List Home Medication List Reviewed: Yes Aspirin/Acetaminophen/Caffeine (Excedrin Migraine Caplet) 1 Each Tablet, 2 EACH PO Q6-8HR PRN for Headache, (Reported) Entered as Reported by: SAMRA MCCORD on 04/11/21 1319 Gabapentin (Gabapentin) 800 Mg Tablet, 800 MG PO TID, (Reported) Entered as Reported by: SAMRA MCCORD on 08/24/20 1424 Hydrocodone/Acetaminophen (Hydrocodone-Acetamin 5-325 mg) 1 Each Tablet, 1 TAB PO Q4H PRN for PAIN-MODERATE (5-7) Prescribed by: ZACHERY BAKER on 04/16/212010 Insulin Aspart (Insulin Aspart Flexpen) 100 Unit/1 Ml Insuln.pen, 5 UNIT SQ AC, (Reported) Entered as Reported by: SAMRA MCCORD on 04/11/21 131 Insulin Glargine,Hum.rec.anlog (Lantus Solostar) 100 Unit/1 Ml Insuln.pen, 45 UNIT SQ HS, (Reported) Entered as Reported by: SAMRA MCCORD on 04/11/21 1319 Lisinopril (Lisinopril) 10 Mg Tablet, 10 MG PO DAILY Prescribed by: ALFRED MORGAN on 04/13/21 1017 Multivitamin (Multivitamin) 1 Each Tablet, 1 EACH PO DAILY, (Reported) Entered as Reported by: SAMRA MCCORD on 08/24/20 1424 Pantoprazole Sodium (Pantoprazole Sodium) 40 Mg Tablet.dr, 40 MG PO DAILY, (Re ported) Entered as Reported by: SAMRA MCCORD on 04/11/21 1320 Sucralfate (Sucralfate) 1 Gm Tablet, 1 GM PO ACHS Prescribed by: ALFRED MORGAN on 04/13/21 1017 Review of Systems Review of Systems Constitutional: No chills, No fever; weakness EENTM: No Blurred Vision, No Double Vision Respiratory: Denies Cough, Denies Shortness of Air Cardiovascular: Denies Chest Pain, Denies Lightheadedness Gastrointestinal: See HPI; Denies Abdomen Distended; Abdominal Pain; Denies Constipated, Denies Diarrhea; Nausea, Vomiting Genitourinary: Denies Burning, Denies Discharge Musculoskeletal: No back pain, No joint pain Psychiatric/Neurological: Denies Anxiety, Denies Depressed All Other Systems Reviewed Negative Unless Noted: Yes Past Mmseaby-Yhmbpz-Lbutqe Hx Patient Social History Tobacco Use?: No Use of E-Cig and/or Vaping dev: No Substance use?: No Alcohol Use?: No Immunizations Up To Date Tetanus Booster (TDap): Unknown First/Initial COVID19 Vaccinat: 08/11/2020 Second COVID19 Vaccination Kumar: 09/10/2020 Third COVID19 Vaccination Date: 08/11/2020 Seasonal Allergies Seasonal Allergies: No Past Medical History Surgeries: Yes Abdominal, Gallbladder Respiratory: Yes (copd dx by patient) COPD Currently Using CPAP: No Currently Using BIPAP: No Cardiac: Yes Hypertension Neurological: Yes Neuropathy Reproductive Disorders: No Sexually Transmitted Disease: No HIV/AIDS: No Genitourinary: Yes Kidney Infection Gastrointestinal: Yes (ELEVATED LIVER ENZYMES, Hep A) Gastroesophageal Reflux, Liver Disease/Jaundice, Esophagitis Musculoskeletal: Yes Arthritis, Scoliosis, Chronic Back Pain Endocrine: Yes (Type I) Diabetes, Insulin dep HEENT: No Hearing Impairment: Denies Cancer: No Psychosocial: Yes (POLYSUBSTANCE ABUSE) Depression Integumentary: No Blood Disorders: No Adverse Reaction/Blood Tranf: No Family Medical History Alcoholism 19 FATHER G8 BROTHER Congenital heart disease 19 FATHER Family history: Cardiovascular disease 19 FATHER, Onset:40's - 50 Family history: Diabetes mellitus 19 MOTHER Family history: Hypertension 19 FATHER Heart disease 19 FATHER History of - respiratory disease 19 FATHER History of drug abuse 19 MOTHER Hypercholesterolemia 19 FATHER Myocardial infarction 19 FATHER Seizure disorder 19 FATHER No Family History of: Abdominal aortic aneurysm Markos's disease Cancer Congestive heart failure Cystic fibrosis Dementia Dysphagia Family history: Allergy Family history: Alzheimer's disease Family history: Arthritis Family history: Asthma Family history: Breast disease Family history: Coronary thrombosis Family history: Gastrointestinal disease Family history: Glaucoma Family history: Osteoporosis Family history: Thyroid disorder Headache Hearing loss Hereditary disease History of - anemia History of - disorder Human immunodeficiency virus (HIV) seropositivity Infertile Kidney disease Malignant neoplasm of lung Parkinson's disease Prostate cancer Psychotic disorder Stroke Tuberculosis Visual impairment No Pertinent Family Hx Physical Exam Vital Signs Vital Signs - First Documented 04/30/21 19:18 Temp 36.1 Pulse 72 Resp 20 B/P (MAP) 172/89 (116) Pulse Ox 100 O2 Delivery Room Air Capillary Refill : Height/Weight/BMI Height: 5'10.00" Weight: 240lbs. 0oz. [id number]; 26.00 BMI Method:Stated General Appearance: WD/WN, moderate distress HEENT: PERRL/EOMI, normal ENT inspection; No pharynx normal (Dry oral mucosa) Neck: full range of motion, normal inspection Respiratory: lungs clear, normal breath sounds, no respiratory distress, no accessory muscle use Cardiovascular: regular rate, rhythm Gastrointestinal: normal bowel sounds, tenderness (All 4 quadrants without McBurney's point rebound tenderness, Rovsing sign.) Extremities: normal inspection, normal capillary refill Neurologic/Psychiatric: alert, oriented x 3 Progress/Results/Core Measures Results/Orders Lab Results Laboratory Tests Test 04/30/21 19:30 04/30/21 19:43 04/30/21 21:14 04/30/21 21:17 Range/Units Sodium Level 136 135-145 MMOL/L Potassium Level 3.9 3.6-5.0 MMOL/L Chloride Level 100 98-107 MMOL/L Carbon Dioxide Level 21 21-32 MMOL/L Anion Gap 15 H 5-14 MMOL/L Blood Urea Nitrogen 21 H 7-18 MG/DL Creatinine 0.87 0.60-1.30 MG/DL Estimat Glomerular Filtration Rate 101 BUN/Creatinine Ratio 24 Glucose Level 321 H 70-105 MG/DL Calcium Level 9.0 8.5-10.1 MG/DL Corrected Calcium 9.0 8.5-10.1 MG/DL Total Bilirubin 1.2 H 0.1-1.0 MG/DL Aspartate Amino Transf (AST/SGOT) 19 5-34 U/L Alanine Aminotransferase (ALT/SGPT) 32 0-55 U/L Alkaline Phosphatase 78 40-136 U/L C-Reactive Protein High Sensitivity 0.49 0.00-0.50 MG/DL Total Protein 6.6 6.4-8.2 GM/DL Albumin 4.0 3.2-4.5 GM/DL Lipase 7 L 8-78 U/L Serum Alcohol < 10 <10 MG/DL Glucometer 305 H 70-110 MG/DL White Blood Count 7.7 4.3-11.0 10^3/uL Red Blood Count 4.06 L 4.30-5.52 10^6/uL Hemoglobin 12.0 L 13.3-17.7 g/dL Hematocrit 37 L 40-54 % Mean Corpuscular Volume 92 80-99 fL Mean Corpuscular Hemoglobin 30 25-34 pg Mean Corpuscular Hemoglobin Concent 32 32-36 g/dL Red Cell Distribution Width 12.0 10.0-14.5 % Platelet Count 162 130-400 10^3/uL Mean Platelet Volume 9.2 9.0-12.2 fL Immature Granulocyte % (Auto) 1 % Neutrophils (%) (Auto) 82 H 42-75 % Lymphocytes (%) (Auto) 10 L 12-44 % Monocytes (%) (Auto) 6 0-12 % Eosinophils (%) (Auto) 1 0-10 % Basophils (%) (Auto) 1 0-10 % Neutrophils # (Auto) 6.3 1.8-7.8 10^3/uL Lymphocytes # (Auto) 0.8 L 1.0-4.0 10^3/uL Monocytes # (Auto) 0.5 0.0-1.0 10^3/uL Eosinophils # (Auto) 0.1 0.0-0.3 10^3/uL Basophils # (Auto) 0.0 0.0-0.1 10^3/uL Immature Granulocyte # (Auto) 0.0 0.0-0.1 10^3/uL Urine Color YELLOW Urine Clarity SL CLOUDY Urine pH 6.5 5-9 Urine Specific [place] 1.015 L 1.016-1.022 Urine Protein NEGATIVE NEGATIVE Urine Glucose (UA) 3+ H NEGATIVE Urine Ketones 3+ H NEGATIVE Urine Nitrite NEGATIVE NEGATIVE Urine Bilirubin NEGATIVE NEGATIVE Urine Urobilinogen 0.2 < = 1.0 MG/DL Urine Leukocyte Esterase NEGATIVE NEGATIVE Urine RBC (Auto) NEGATIVE NEGATIVE Urine RBC NONE /HPF Urine WBC NONE /HPF Urine Squamous Epithelial Cells RARE /HPF Urine Crystals NONE /LPF Urine Bacteria NEGATIVE /HPF Urine Casts NONE /LPF Urine Mucus SMALL H /LPF Urine Culture Indicated NO Urine Opiates Screen POSITIVE H NEGATIVE Urine Oxycodone Screen NEGATIVE NEGATIVE Urine Methadone Screen NEGATIVE NEGATIVE Urine Propoxyphene Screen NEGATIVE NEGATIVE Urine Barbiturates Screen NEGATIVE NEGATIVE Ur Tricyclic Antidepressants Screen NEGATIVE NEGATIVE Urine Phencyclidine Screen NEGATIVE NEGATIVE Urine Amphetamines Screen NEGATIVE NEGATIVE Urine Methamphetamines Screen NEGATIVE NEGATIVE Urine Benzodiazepines Screen NEGATIVE NEGATIVE Urine Cocaine Screen NEGATIVE NEGATIVE Urine Cannabinoids Screen POSITIVE H NEGATIVE My Orders Orders - OTTONIEL ARMENTA Ed Iv/Invasive Line Start (04/30/21 19:22) Ns Iv 1000 Ml (Sodium Chloride 0.9%) (04/30/21 19:30) Ns Iv 1000 Ml (Sodium Chloride 0.9%) (04/30/21 19:30) Ondansetron Injection (Zofran Injectio (04/30/21 19:30) Fentanyl Inj (Sublimaze Injection) (04/30/21 19:30) Pantoprazole Injection (Protonix Injecti (04/30/21 19:30) Accucheck Stat ONCE (04/30/21 19:22) Ua Culture If Indicated (04/30/21 19:22) Drug Screen Stat (Urine) (04/30/21 19:22) Alcohol (04/30/21 19:22) Cbc With Automated Diff (04/30/21 19:22) Comprehensive Metabolic Panel (04/30/21 19:22) Lipase (04/30/21 19:22) Hs C Reactive Protein (04/30/21 19:22) Metoclopramide Injection (Reglan Injecti (04/30/21 20:30) Diphenhydramine Injection (Benadryl Inje (04/30/21 20:30) Lidocaine 2% Viscous 15 Ml (Xylocaine Vi (04/30/21 21:45) Antacid Suspension (Mylanta Suspension (04/30/21 21:45) Famotidine Injection (Pepcid Injection) (04/30/21 21:37) Insulin (Regular) Human (Novolin R (Per (04/30/21 22:00) Medications Given in ED Current Medications Medications Dose Ordered Sig/Fer Route Start Time Stop Time Status Last Admin Dose Admin Al Hydrox/Mg Hydrox/Simethicone 30 ml ONCE ONCE PO 04/30/21 21:45 04/30/21 21:46 DC 04/30/21 21:46 30 ML Diphenhydramine HCl 25 mg ONCE ONCE IVP 04/30/21 20:30 04/30/21 20:31 DC 04/30/21 20:40 25 MG Fentanyl Citrate 50 mcg ONCE ONCE IVP 04/30/21 19:30 04/30/21 19:31 DC 04/30/21 19:39 50 MCG Lidocaine HCl 15 ml ONCE ONCE PO 04/30/21 21:45 04/30/21 21:46 DC 04/30/21 21:46 15 ML Metoclopramide HCl 10 mg ONCE ONCE IVP 04/30/21 20:30 04/30/21 20:31 DC 04/30/21 20:40 10 MG Ondansetron HCl 8 mg ONCE ONCE IVP 04/30/21 19:30 04/30/21 19:31 DC 04/30/21 19:39 8 MG Pantoprazole 40 mg ONCE ONCE IV 04/30/21 19:30 04/30/21 19:31 DC 04/30/21 19:39 40 MG Sodium Chloride 1,000 ml @ 0 mls/hr Q0M ONCE IV 04/30/21 19:30 04/30/21 19:31 DC 04/30/21 19:39 1,000 MLS/HR Vital Signs/I&O 04/30/21 19:18 Temp 36.1 Pulse 72 Resp 20 B/P (MAP) 172/89 (116) Pulse Ox 100 O2 Delivery Room Air Progress Progress Note #1: Time: 19:31 Progress Note 8 of Zofran, 50 of fentanyl, 40 of Protonix and will check some labs including a lipase urinalysis. 2 L of saline. Accu-Chek Progress Note #2: Time: 21:56 Progress Note Patient is still complaining of pain and nausea so we gave him 10 mg Reglan 25 of Benadryl. If he is woken he tells us he is still in quite a bit of pain but has not been vomiting since this medicine. GI cocktail and some Pepcid were ordered. He is not in DKA but he does have elevated sugars and ketones so we will put him in for some fluids and nausea management. He has gotten about one of his 2 L so far. Suspect cannabis hyperemesis syndrome as part of his picture and can put for some droperidol as needed. Departure Communication (Admissions) Time/Spoke to Admitting Phy: 21:55 Discussed the case with Dr. Phan who is okay with putting him in for intractable nausea vomiting abdominal pain with appropriate as needed medications and to consult to Dr. Ca, general surgery. Time/Spoke to Consulting Phy: 21:57 Discussed the case with Dr. Ca, general surgery and he agrees with diagnosis of hyperemesis cannabis and consultation on the case. Impression Primary Impression: Intractable cyclical vomiting with nausea Disposition: ADMITTED INPATIENT Condition: Stable Admissions Decision to Admit Reason: Admit from ER (General) Decision to Admit/Date: Apr 30, 2021 Time/Decision to Admit Time: 21:50 Departure-Patient Inst. Referrals: [facility] (PCP/Family) Primary Care Physician OTTONIEL ARMENTA Apr 30, 2021 19:31
[2021-04-30 20:12] LABS: ALANINE AMINOTRANSFERASE 32 U/L (0-55); ALKALINE PHOSPHATASE 78 U/L (40-136); BILIRUBIN,TOTAL 1.2 MG/DL (0.1-1.0); BUN/CREATININE RATIO 24; CARBON DIOXIDE 21 MMOL/L (21-32); CHLORIDE 100 MMOL/L (98-107); CREATININE SERUM 0.87 MG/DL (0.60-1.30); GFR ESTIMATED 101; GLUCOSE 321 MG/DL (70-105); LIPASE 7 U/L (8-78); POTASSIUM 3.9 MMOL/L (3.6-5.0); SODIUM 136 MMOL/L (135-145); TOTAL PROTEIN 6.6 GM/DL (6.4-8.2)
[2021-04-30] MEDS ORDERED: diphenhydrAMINE 50 MG/ML INJ (BENADRYL) IVP ONE (20:30)
[2021-04-30] MEDS ORDERED: METOCLOPRAMIDE INJ 10 MG/2 ML (REGLAN) IVP ONE (20:30)
[2021-04-30 21:23] LABS: BILIRUBIN,URINE NEGATIVE (NEGATIVE); CLARITY,URINE SL CLOUDY; COLOR,URINE YELLOW; GLUCOSE, URINE (UA) 3+ (NEGATIVE); KETONES,URINE 3+ (NEGATIVE); LEUKOCYTE ESTERASE ,URINE NEGATIVE (NEGATIVE); NITRITE,URINE NEGATIVE (NEGATIVE); PH,URINE 6.5 (5-9); PROTEIN,URINE NEGATIVE (NEGATIVE)
[2021-04-30 21:26] LABS: BASOPHILS % (AUTO) 1 % (0-10); EOSINOPHILS # (AUTO) 0.1 10^3/uL (0.0-0.3); EOSINOPHILS % (AUTO) 1 % (0-10); HEMATOCRIT 37 % (40-54); LYMPHOCYTES # (AUTO) 0.8 10^3/uL (1.0-4.0); LYMPHOCYTES % (AUTO) 10 % (12-44); MEAN CORPUSCULAR HEMOGLOBIN 30 pg (25-34); MEAN CORPUSCULAR HGB CONC 32 g/dL (32-36); MEAN CORPUSCULAR VOLUME 92 fL (80-99); MEAN PLATELET VOLUME 9.2 fL (9.0-12.2); MONOCYTES # (AUTO) 0.5 10^3/uL (0.0-1.0); MONOCYTES % (AUTO) 6 % (0-12); NEUTROPHILS # (AUTO) 6.3 10^3/uL (1.8-7.8); NEUTROPHILS % (AUTO) 82 % (42-75); PLATELET COUNT 162 10^3/uL (130-400); WHITE BLOOD COUNT 7.7 10^3/uL (4.3-11.0)
[2021-04-30 21:31] LABS: BACTERIA,URINE NEGATIVE /HPF; SQUAMOUS EPITHELIAL CELL,UR RARE /HPF
[2021-04-30] MEDS ORDERED: FAMOTIDINE 20MG/2ML IV (PEPCID) IV STA (21:37)
[2021-04-30 21:38] LABS: BENZODIAZEPINES SCREEN URINE NEGATIVE (NEGATIVE); COCAINE SCREEN URINE NEGATIVE (NEGATIVE)
[2021-04-30 21:39] LABS: AMPHETAMINE SCREEN, URINE NEGATIVE (NEGATIVE); BARBITURATE SCREEN URINE NEGATIVE (NEGATIVE); CANNABINOID SCREEN, URINE POSITIVE (NEGATIVE); METHADONE STAT NEGATIVE (NEGATIVE); METHAMPHETAMINE SCREEN URINE S NEGATIVE (NEGATIVE); OPIATE SCREEN URINE POSITIVE (NEGATIVE); OXYCODONE STAT NEGATIVE (NEGATIVE); PROPOXYPHENE STAT NEGATIVE (NEGATIVE); TRICYCLIC ANTIDEPRESSANTS SCRE NEGATIVE (NEGATIVE)
[2021-04-30] MEDS ORDERED: ANTACID SUSP 30 ML UDC (MYLANTA) PO ONE (21:45)
[2021-04-30] MEDS ORDERED: LIDOCAINE 2% VISCOUS 15 ML UDC PO ONE (21:45)
[2021-04-30] MEDS ORDERED: inSUlin (REGULAR) HUMAN 1 UNIT/0.01 ML (CHARGE PER UNIT) SC ONE (22:00)
[2021-04-30] MEDS ORDERED: HYDROcodone/APAP 5 MG/325 MG (LORTAB) TAB PO ONE (22:15)
[2021-04-30 23:15] VITALS: BP 149/85
[2021-04-30] MEDS ORDERED: HYDROmorphone 2 MG/ML VIAL (DILAUDID) IV PRN (23:45)
[2021-04-30] MEDS ORDERED: HYDROcodone/APAP 5 MG/325 MG (LORTAB) TAB PO PRN (23:45)
[2021-05-01] MEDS: ONDANSETRON 4 MG/2 ML (SDV) Z0FRAN IV PRN ×6 (00:13→22:47)
[2021-05-01] MEDS: NS W/KCL 20 MEQ/L 1,000 ML IV SCH ×4 (00:14→20:34)
--- NOTE | 2021-05-01 00:39 | CONSULTATION REPORT ---
DATE OF SERVICE: ATTENDING CLINICAL RESEARCH ADMINISTRATOR: [facility]. ATTENDING PHYSICIAN: Lexi Phan DO HISTORY OF PRESENT ILLNESS: The patient is a 35-year-old male known to our service. He was admitted on 04/09/2021 for nausea and vomiting. He also has a history of insulin-dependent diabetes as well as previous admissions for diabetic ketoacidosis. He also does smoke marijuana on a daily basis and has had issues with persistent nausea and vomiting consistent with cannabinoid hyperemesis syndrome. He presented to the Emergency Department today with persistent nausea and vomiting. He also has not been taking his insulin and his blood sugar was elevated at 380. He was also placed on Protonix and Carafate; however, we are unsure if he has been compliant with taking those medications. We had done an EGD on him on 08/2020 and he was found to have a reflux esophagitis stage II as well as a mild to moderate gastritis. There were no formal ulcerations. We feel that his recurrent nausea and vomiting secondary to uncontrolled diabetes and some level of gastroparesis; however, due to his chronic cannabinoid use, he also does have a component of cannabinoid hyperemesis syndrome again. Recommendation is to proceed with conservative management with IV hydration, tight glycemic control, PPI acid reducers as well as antiemetics as needed. PAST MEDICAL HISTORY: Insulin-dependent diabetes, COPD, history of hepatitis A and elevated liver enzymes, gastroesophageal reflux disease, scoliosis, degenerative joint disease, depression, polysubstance abuse, hypertension, neuropathy. PAST SURGICAL HISTORY: Laparoscopic cholecystectomy. ALLERGIES: TRAMADOL. MEDICATIONS: Gabapentin 800 mg q.i.d., aspartate insulin 5 units q.a.c. Lantus insulin 40 units at bedtime, metoclopramide 10 mg q.i.d., Zofran p.r.n., oxycodone 5 mg t.i.d. p.r.n., Protonix 40 mg daily, Carafate 1 gram q.i.d. SOCIAL HISTORY: Positive for marijuana smoke on a daily basis. Past history of methamphetamine use; however, states that he is currently not using. Negative alcohol. FAMILY HISTORY: Mother, diabetes. Father, myocardial infarction, coronary artery disease. VITAL SIGNS: Temperature 37.2, blood pressure 172/89, pulse 92, respirations 20, pulse ox 100% on room air. REVIEW OF SYSTEMS: Well-nourished male currently in no acute distress. He is not experiencing any shortness of breath or difficulty breathing. No chest pain, palpitations, diaphoresis. Persistent nausea and vomiting for the past 24 hours, undigested food as well as bilious material. No hematemesis, no coffee ground emesis. He does not report any red blood per rectum nor any dark tarry stools. He states that he was having chills at home. No recent inadvertent weight loss. All other review of systems negative. PHYSICAL EXAMINATION: CHEST: Few scattered rales bilaterally. HEART: Regular, no murmurs. EXTREMITIES: No lower extremity edema, negative Homans sign. HEENT: No scleral icterus. NECK: No cervical lymphadenopathy. ABDOMEN: Soft, nondistended. There is mild discomfort in the epigastric region upon deep palpation. No peritoneal signs. No hernias. SKIN: Warm, dry. LABORATORY DATA: WBC 7.7, hemoglobin 12.0, hematocrit 37, platelets 162, BUN 21, creatinine 0.87. Toxicology was positive for cannabinoid. Urinalysis, 3+ urine ketones, 3+ glucose. ASSESSMENT AND PLAN: A 35-year-old male with recurrent persistent nausea and vomiting, likely secondary to uncontrolled diabetes and gastroparesis as well as cannabinoid hyperemesis syndrome. Again, he will need to be medically compliant and proceed with tight glycemic control as well as a proper dietary habits. He also needs to proceed with cessation of cannabinoid use or this will be a progressive problem. For now, we will proceed with medical management with IV hydration, sliding scale insulin and tight glycemic control as well as antiemetics. Once his nausea and vomiting are under control, we will start a clear liquid diet and advance as tolerated. Job ID: [id number] DocumentID: [id number] Dictated Date: 05/01/2021 00:13:00 Dryland Farmer Date: 05/01/2021 00:38:37 Dictated By: LUIS PEARSON MD
[2021-05-01 04:00] VITALS: BP_SYST 149; BP_SYST 151; BP_DIAS 78; BP_DIAS 85
[2021-05-01] MEDS: fentaNYL INJ 100 MCG/2 ML AMP IV PRN ×5 (04:02→22:48)
[2021-05-01] MEDS: diphenhydrAMINE 50 MG/ML INJ (BENADRYL) IV PRN (05:14)
[2021-05-01 05:17] LABS: BASOPHILS # (AUTO) 0.1 10^3/uL (0.0-0.1); BASOPHILS % (AUTO) 1 % (0-10); EOSINOPHILS % (AUTO) 0 % (0-10); HEMATOCRIT 39 % (40-54); HEMOGLOBIN 12.5 g/dL (13.3-17.7); LYMPHOCYTES # (AUTO) 1.8 10^3/uL (1.0-4.0); LYMPHOCYTES % (AUTO) 23 % (12-44); MEAN CORPUSCULAR HEMOGLOBIN 29 pg (25-34); MEAN CORPUSCULAR HGB CONC 32 g/dL (32-36); MEAN CORPUSCULAR VOLUME 90 fL (80-99); MEAN PLATELET VOLUME 9.7 fL (9.0-12.2); MONOCYTES # (AUTO) 0.5 10^3/uL (0.0-1.0); MONOCYTES % (AUTO) 6 % (0-12); NEUTROPHILS # (AUTO) 5.4 10^3/uL (1.8-7.8); NEUTROPHILS % (AUTO) 69 % (42-75); PLATELET COUNT 216 10^3/uL (130-400); WHITE BLOOD COUNT 7.9 10^3/uL (4.3-11.0)
[2021-05-01 05:34] LABS: POTASSIUM 3.9 MMOL/L (3.6-5.0)
[2021-05-01 05:35] LABS: CALCIUM 8.3 MG/DL (8.5-10.1)
[2021-05-01 05:40] LABS: CREATININE SERUM 0.75 MG/DL (0.60-1.30)
[2021-05-01] MEDS: SUCRALFATE 1 GM (CARAFATE) TAB PO SCH ×4 (06:13→21:55)
[2021-05-01] MEDS: inSUlin ASPART (NovoLOG) 1 UNIT/0.01 ML (CHARGE PER UNIT) SC SCH ×7 (06:14→21:56)
[2021-05-01 08:00] VITALS: BP 120/80
[2021-05-01] MEDS: PANTOPRAZOLE 40 MG (PROTONIX) VIAL IV SCH (08:51)
--- NOTE | 2021-05-01 09:58 | Progress Note ---
Subjective Date Seen by a Provider: May 01, 2021 Time Seen by a Provider: 09:50 Subjective/Events-last exam Patient seen with Dr. Ca. Patient reports that he had dry heaves during the night. He does report abdominal tenderness. Reports that the nausea and abdominal "burning" are better than yesterday. He reports he has been drinking water. Denies any hematemesis or coffee ground emesis. Had BM last night with no blood. Objective Exam Vital Signs Date Time Temp Pulse Resp B/P (MAP) Pulse Ox O2 Delivery O2 Flow Rate FiO2 05/01/21 08:00 37.5 80 24 120/80 (93) 97 Room Air 05/01/21 07:42 96 Room Air 05/01/21 07:00 82 05/01/21 04:00 37.2 86 22 151/78 (102) 94 Room Air 05/01/21 03:44 96 Room Air 05/01/21 01:00 84 04/30/21 23:15 37.2 90 20 149/85 (106) 96 Room Air 04/30/21 23:12 Room Air 04/30/21 22:56 90 04/30/21 22:30 36.8 92 18 167/82 97 Room Air 04/30/21 19:18 36.1 72 20 172/89 (116) 100 Room Air I & O 05/01/21 06:59 Intake Total 1550 ml Output Total 375 ml Balance 1175 ml Capillary Refill : General Appearance: No Apparent Distress, WD/WN Neck: Normal Inspection, Supple Respiratory: No Accessory Muscle Use, No Respiratory Distress Cardiovascular: Regular Rate, Rhythm, No Edema Gastrointestinal: normal bowel sounds, soft, tenderness (Diffuse) Extremity: Normal Inspection, Normal Range of Motion Neurologic/Psychiatric: Alert, Oriented x3 Skin: Normal Color, Warm/Dry Results Lab Laboratory Tests 04/30/21 19:30: Sodium Level 136, Potassium Level 3.9, Chloride Level 100, Carbon Dioxide Level 21, Anion Gap 15H, Blood Urea Nitrogen 21H, Creatinine 0.87, Estimat Glomerular Filtration Rate 101, BUN/Creatinine Ratio 24, Glucose Level 321H, Calcium Level 9.0, Corrected Calcium 9.0, Total Bilirubin 1.2H, Aspartate Amino Transf (AST/SGOT) 19, Alanine Aminotransferase (ALT/SGPT) 32, Alkaline Phosphatase 78, C-Reactive Protein High Sensitivity 0.49, Total Protein 6.6, Albumin 4.0, Lipase 7L, Serum Alcohol < 10 04/30/21 19:43: Glucometer 305H 04/30/21 21:14: White Blood Count 7.7, Red Blood Count 4.06L, Hemoglobin 12.0L, Hematocrit 37L, Mean Corpuscular Volume 92, Mean Corpuscular Hemoglobin 30, Mean Corpuscular Hemoglobin Concent 32, Red Cell Distribution Width 12.0, Platelet Count 162, Mean Platelet Volume 9.2, Immature Granulocyte % (Auto) 1, Neutrophils (%) (Auto) 82H, Lymphocytes (%) (Auto) 10L, Monocytes (%) (Auto) 6, Eosinophils (%) (Auto) 1, Basophils (%) (Auto) 1, Neutrophils # (Auto) 6.3, Lymphocytes # (Auto) 0.8L, Monocytes # (Auto) 0.5, Eosinophils # (Auto) 0.1, Basophils # (Auto) 0.0, Immature Granulocyte # (Auto) 0.0 04/30/21 21:17: Urine Color YELLOW, Urine Clarity SL CLOUDY, Urine pH 6.5, Urine Specific [place] 1.015L, Urine Protein NEGATIVE, Urine Glucose (UA) 3+H, Urine Ketones 3+H, Urine Nitrite NEGATIVE, Urine Bilirubin NEGATIVE, Urine Urobilinogen 0.2, Urine Leukocyte Esterase NEGATIVE, Urine RBC (Auto) NEGATIVE, Urine RBC NONE, Urine WBC NONE, Urine Squamous Epithelial Cells RARE, Urine Crystals NONE, Urine Bacteria NEGATIVE, Urine Casts NONE, Urine Mucus SMALLH, Urine Culture Indicated NO, Urine Opiates Screen POSITIVEH, Urine Oxycodone Screen NEGATIVE, Urine Methadone Screen NEGATIVE, Urine Propoxyphene Screen NEGATIVE, Urine Barbiturates Screen NEGATIVE, Ur Tricyclic Antidepressants Screen NEGATIVE, Urine Phencyclidine Screen NEGATIVE, Urine Amphetamines Screen NEGATIVE, Urine Methamphetamines Screen NEGATIVE, Urine Benzodiazepines Screen NEGATIVE, Urine Cocaine Screen NEGATIVE, Urine Cannabinoids Screen POSITIVEH 05/01/21 00:21: Glucometer 217H 05/01/21 04:35: White Blood Count 7.9, Red Blood Count 4.35, Hemoglobin 12.5L, Hematocrit 39L, Mean Corpuscular Volume 90, Mean Corpuscular Hemoglobin 29, Mean Corpuscular Hemoglobin Concent 32, Red Cell Distribution Width 11.9, Platelet Count 216, Mean Platelet Volume 9.7, Immature Granulocyte % (Auto) 0, Neutrophils (%) (Auto) 69, Lymphocytes (%) (Auto) 23, Monocytes (%) (Auto) 6, Eosinophils (%) (Auto) 0, Basophils (%) (Auto) 1, Neutrophils # (Auto) 5.4, Lymphocytes # (Auto) 1.8, Monocytes # (Auto) 0.5, Eosinophils # (Auto) 0.0, Basophils # (Auto) 0.1, Immature Granulocyte # (Auto) 0.0, Sodium Level 137, Potassium Level 3.9, Chloride Level 104, Carbon Dioxide Level 21, Anion Gap 12, Blood Urea Nitrogen 22H, Creatinine 0.75, Estimat Glomerular Filtration Rate 120, BUN/Creatinine Ratio 29, Glucose Level 181H, Calcium Level 8.3L Assessment/Plan Assessment/Plan Assess & Plan/Chief Complaint A 35-year-old male with recurrent persistent nausea and vomiting, likely secondary to uncontrolled diabetes and gastroparesis as well as cannabinoid hyperemesis syndrome. VSS Continue IV hydration, nausea, and pain meds Continue PUD prophylaxis SS insulin for glycemic control Continue diet ANNE MEJIA SOFT TILE SETTER May 01, 2021 09:58
[2021-05-01 11:14] VITALS: BP 123/60
--- NOTE | 2021-05-01 12:08 | History & Physical-Hospitalist ---
History of Present Illness HPI/Chief Complaint Chief complaint: Nausea and vomiting and abdominal pain History of present illness: This is a 35-year-old white male type I diabetic who has frequent hospital stays for nausea and vomiting and abdominal pain. There is a component of gastroparesis and hyperemesis cannabis. Dr. PEARSON's been consulted. Patient will be transferred to the fourth floor. Source: patient Exam Limitations: no limitations Date Seen 05/01/21 Time Seen by a Provider: 12:00 Attending Physician Lexi Phan DO [facility] Referring Physician Date of Admission Apr 30, 2021 at 21:55 Home Medications & Allergies Home Medications Reviewed patient Home Medication Reconciliation performed by pharmacy medication reconciliations finishing technician and/or nursing. Patients Allergies have been reviewed. Allergies Allergies Coded Allergies tramadol (Verified Adverse Reaction, Mild, N/V, 12/21/14) Past Hfchqnh-Mjfmfa-Heqjod Hx Patient Social History Marrital Status: single Employed/Student: unemployed Tobacco Use?: No Smoking Status: Current Everyday Smoker Use of E-Cig and/or Vaping dev: No Substance use?: Yes Substance type: Marijuana Substance frequency: Several times a month Alcohol Use?: No Pt feels they are or have been: No Immunizations Up To Date Date of Influenza Vaccine: Apr 13, 2021 First/Initial COVID19 Vaccinat: 08/11/2020 Second COVID19 Vaccination Kumar: 09/10/2020 Tetanus Booster (TDap): Less Than 5 Years Hepatitis A: No Hepatitis B: No Date of Pneumonia Vaccine: Aug 27, 2011 Seasonal Allergies Seasonal Allergies: No Current Status Advance Directives: No Communicates: Verbally Primary Language: Swazi Preferred Spoken Language: Swazi Past Medical History Surgeries: Abdominal, Gallbladder COPD Currently Using CPAP: No Currently Using BIPAP: No Hypertension Neuropathy Sexually Transmitted Disease: No HIV/AIDS: No Kidney Infection Gastroesophageal Reflux, Liver Disease/Jaundice, Esophagitis Arthritis, Scoliosis, Chronic Back Pain Diabetes, Insulin dep Hearing Impairment: Denies Depression Blood Disorders: No Adverse Reaction/Blood Tranf: No Past Medical History 1. DM, insulin requiring, not controlled, not compliant 2. Hypertension- was previously prescribed medications but never filled 3. Alcoholism- with previous heavy daily alcohol use- reports stopped drinking 4. 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 Tobaccoism 6. GERD 7. Non-compliance- pt. is chronically non-compliant with his medications and follow up 8. Peipheral Neuropathy Past Surgical History 1. None Family Medical History Alcoholism 19 FATHER G8 BROTHER Congenital heart disease 19 FATHER Family history: Cardiovascular disease 19 FATHER, Onset:40's - 50 Family history: Diabetes mellitus 19 MOTHER Family history: Hypertension 19 FATHER Heart disease 19 FATHER History of - respiratory disease 19 FATHER History of drug abuse 19 MOTHER Hypercholesterolemia 19 FATHER Myocardial infarction 19 FATHER Seizure disorder 19 FATHER No Family History of: Abdominal aortic aneurysm [place]'s disease Cancer Congestive heart failure Cystic fibrosis Dementia Dysphagia Family history: Allergy Family history: Alzheimer's disease Family history: Arthritis Family history: Asthma Family history: Breast disease Family history: Coronary thrombosis Family history: Gastrointestinal disease Family history: Glaucoma Family history: Osteoporosis Family history: Thyroid disorder Headache Hearing loss Hereditary disease History of - anemia History of - disorder Human immunodeficiency virus (HIV) seropositivity Infertile Kidney disease Malignant neoplasm of lung Parkinson's disease Prostate cancer Psychotic disorder Stroke Tuberculosis Visual impairment No Pertinent Family Hx Review of Systems Constitutional: see HPI, malaise, weakness EENTM: no symptoms reported Respiratory: no symptoms reported Gastrointestinal: abdominal pain, nausea, vomiting Genitourinary: no symptoms reported Musculoskeletal: no symptoms reported Skin: no symptoms reported Psychiatric/Neurological: No Symptoms Reported All Other Systems Reviewed Negative Unless Noted: Yes Physical Exam Physical Exam Vital Signs Vital Signs - First Documented 04/30/21 19:18 Temp 36.1 Pulse 72 Resp 20 B/P (MAP) 172/89 (116) Pulse Ox 100 O2 Delivery Room Air Capillary Refill : Height, Weight, BMI Height: 5'10.00" Weight: 240lbs. 0oz. [id number]; 29.81 BMI Method:Stated General Appearance: No Apparent Distress, Anxious, Chronically ill Eyes: Right Eye Normal Inspection, Right Eye PERRL HEENT: PERRL/EOMI, Normal ENT Inspection, Pharynx Normal, Moist Mucous Membranes Neck: Full Range of Motion, Normal Inspection, Non Tender Respiratory: Chest Non Tender, Lungs Clear, Normal Breath Sounds, No Accessory Muscle Use, No Respiratory Distress Cardiovascular: Regular Rate, Rhythm, No Edema, No Gallop, No JVD, No Murmur, Normal Peripheral Pulses Gastrointestinal: Normal Bowel Sounds, No Organomegaly, No Pulsatile Mass, Non Tender, Soft Back: Normal Inspection, No CVA Tenderness, No Vertebral Tenderness Extremity: Normal Capillary Refill, Normal Inspection, Normal Range of Motion, Non Tender, No Calf Tenderness, No Pedal Edema Neurologic/Psychiatric: Alert, Oriented x3, No Motor/Sensory Deficits, Normal Mood/Affect Skin: Normal Color, Warm/Dry Lymphatic: No Adenopathy Results Results/Procedures Labs Laboratory Tests 04/30/21 19:30 04/30/21 21:14 05/01/21 04:35 Patient resulted labs reviewed. Assessment/Plan Admission Diagnosis Assessment: Abdominal pain acute on chronic Recurrent nausea and vomiting Gastroparesis Hyperemesis cannabis Plan: IV fluids Supportive care Insulin Dr. PEARSON consult Admission Status: Inpatient Order (span 2 midnights) Reason for Inpatient Admission: Gastroparesis and hyperemesis cannabis LEXI PHAN DO May 01, 2021 12:08
[2021-05-01 14:29] VITALS: BP 137/75
[2021-05-01 16:00] VITALS: BP 163/79
[2021-05-01] MEDS: HYDROcodone/APAP 7.5 MG/325 MG (LORTAB, LORCET PLUS) TABLET PO PRN ×2 (16:09→19:56)
[2021-05-01 20:00] VITALS: BP 143/79
[2021-05-02] VITALS (7 sets, daily range): BP systolic 107–176; BP diastolic 64–94
[2021-05-02] MEDS: HYDROcodone/APAP 7.5 MG/325 MG (LORTAB, LORCET PLUS) TABLET PO PRN ×4 (00:44→21:51)
[2021-05-02] MEDS: diphenhydrAMINE 50 MG/ML INJ (BENADRYL) IV PRN (00:47)
[2021-05-02] MEDS: ONDANSETRON 4 MG/2 ML (SDV) Z0FRAN IV PRN ×4 (02:31→17:39)
[2021-05-02] MEDS: fentaNYL INJ 100 MCG/2 ML AMP IV PRN ×6 (02:32→23:03)
[2021-05-02] MEDS: NS W/KCL 20 MEQ/L 1,000 ML IV SCH ×4 (03:13→21:57)
[2021-05-02 05:36] LABS: BASOPHILS # (AUTO) 0.1 10^3/uL (0.0-0.1); BASOPHILS % (AUTO) 1 % (0-10); EOSINOPHILS # (AUTO) 0.2 10^3/uL (0.0-0.3); EOSINOPHILS % (AUTO) 3 % (0-10); HEMATOCRIT 34 % (40-54); LYMPHOCYTES # (AUTO) 2.4 10^3/uL (1.0-4.0); LYMPHOCYTES % (AUTO) 44 % (12-44); MEAN CORPUSCULAR HEMOGLOBIN 29 pg (25-34); MEAN CORPUSCULAR HGB CONC 32 g/dL (32-36); MEAN CORPUSCULAR VOLUME 91 fL (80-99); MEAN PLATELET VOLUME 9.3 fL (9.0-12.2); MONOCYTES # (AUTO) 0.5 10^3/uL (0.0-1.0); MONOCYTES % (AUTO) 9 % (0-12); NEUTROPHILS # (AUTO) 2.4 10^3/uL (1.8-7.8); NEUTROPHILS % (AUTO) 43 % (42-75); PLATELET COUNT 164 10^3/uL (130-400); WHITE BLOOD COUNT 5.5 10^3/uL (4.3-11.0)
[2021-05-02 05:50] LABS: ALBUMIN 3.2 GM/DL (3.2-4.5); POTASSIUM 3.8 MMOL/L (3.6-5.0)
[2021-05-02 05:51] LABS: CALCIUM 8.1 MG/DL (8.5-10.1)
[2021-05-02 05:54] LABS: BILIRUBIN,TOTAL 0.4 MG/DL (0.1-1.0)
[2021-05-02 05:56] LABS: CREATININE SERUM 0.71 MG/DL (0.60-1.30)
[2021-05-02] MEDS: SUCRALFATE 1 GM (CARAFATE) TAB PO SCH ×4 (06:43→21:52)
[2021-05-02] MEDS: inSUlin ASPART (NovoLOG) 1 UNIT/0.01 ML (CHARGE PER UNIT) SC SCH ×7 (06:43→21:52)
[2021-05-02] MEDS: PANTOPRAZOLE 40 MG (PROTONIX) VIAL IV SCH (08:15)
--- NOTE | 2021-05-02 11:10 | Physical Therapy Evaluation ---
PT Evaluation-General Medical Diagnosis Admission Date Apr 30, 2021 at 21:55 Medical Diagnosis: nausea, vomiting, abdominal pain Onset Date: Apr 30, 2021 Therapy Diagnosis Therapy Diagnosis: impaired strength Height/Weight Height (Feet): 5 Height (Inches): 10.00 Weight (Pounds): 240 Weight (Ounces): 0 Precautions Precautions/Isolations: Standard Precautions Referral Physician: Lexi Phan DO Reason for Referral: Evaluation/Treatment Medical History Pertinent Medical History: COPD, DM, HTN, Neuropathy Additional Medical History Past Medical History 1. DM, insulin requiring, not controlled, not compliant 2. Hypertension- was previously prescribed medications but never filled 3. Alcoholism- with previous heavy daily alcohol use- reports stopped drinking 4. 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 Tobaccoism 6. GERD 7. Non-compliance- pt. is chronically non-compliant with his medications and follow up 8. Peipheral Neuropathy Reviewed History: Yes Social History Entry Into Home: Stairs With Railing PT Steps Into Home: 3 Prior Prior Level of Function SCALE: Activities may be completed with or without assistive devices. 7-Ntrfunvcln-yastzuv completes the activity by him/herself with no assistance from a helper. 5-Set-up or Clean-up Assistance-helper sets up or cleans up; patient completes activity. [place] assists only prior to or following the activity. 4-Supervision or Touching Assistance-helper provides verbal cues and/or touching/steadying and/or contact guard assistance as patient completes activity. Assistance may be provided throughout the activity or intermittently. 3-Partial/Moderate Assistance-helper does LESS THAN HALF the effort. [place] lifts, holds or supports trunk or limbs, but provides less than half the effort. 2-Substantial/Maximal Assistance-helper does MORE THAN HALF the effort. [place] lifts or holds trunk or limbs and provides more than half the effort. 6-Xiyfudris-wvnpdz does ALL the effort. Patient does none of the effort to complete the activity. Or, the assistance of 2 or more helpers is required for the patient to complete the activity. If activity was not attempted, code reason: 7-Patient Refused. 9-Not Applicable-not attempted and the patient did not perform the activity before the current illness, exacerbation or injury. 10-Not Attempted due to Environmental Limitations-(lack of equipment, weather restraints, etc.). 88-Not Attempted due to Medical Conditions or Safety Concerns. Bed Mobility: 6 Transfers (B,C,W/C): 6 Gait: 6 Stairs: 6 Indoor Mobility (Ambulation): Independent Stairs: Independent PT Evaluation-Current Subjective Patient in bed pre tx, agrees to PT, has 5/10 abdominal pain Pt/Family Goals to stop abdominal pain Objective Patient Orientation: Person, Place, Situation ROM/Strength ROM Lower Extremities WNL Strength Lower Extremities LLE (hip flexion 3+/5, knee flexion 4/5, knee extension 4/5, dorsiflexion 5/5), RLE (hip flexion 3+/5, knee flexion 4/5, knee extension 4/5, dorsiflexion 5/5) Sensory Vision: Functional Hearing: Functional Sensation Right Lower Extremit: Impaired Sensation Left Lower Extremity: Impaired (6) Transfers Roll Left to Right (QC): 6 Sit to Lying (QC): 6 Lying to Sitting/Side of Bed(Q: 6 Sit to Stand (QC): 6 Chair/Wpc-ua-Uhald Xfer(QC): 6 Because of abdominal pain patient has to raise the head of the bed before sitting up and going to the side of the bed but he can do it on his own. Gait Does the Patient Walk?: Yes Mode of Locomotion: Walk Anticipated Mode of Locomotion: Walk Walk 10 feet (QC): 6 Walk 50 ft with 2 Turns(QC): 6 Walk 150 ft (QC): 6 Distance: 600' Gait Assistive Device: None Comments/Gait Description Patient ambulates independently in the hallway, pushed his own IV pole, no LOB of unsteadiness Balance Sitting Static: Normal Sitting Dynamic: Normal Standing Static: Normal Standing Dynamic: Normal Assessment/Needs Patient in bed post tx with nurse call, phone, tray, all needs met. Patent will be discharged from PT at this time, encouraged patient to ambulate in the hallway several times a day on his own and he agrees. Rehab Potential: Fair PT Plan Problem List Problem List: Functional Strength Treatment/Plan Treatment Plan: Discontinue PT Treatment Plan: Other Treatment Duration: May 02, 2021 Frequency: Patient and/or Family Agrees t: Yes Safety Risks/Education Patient Education: Gait Training, Transfer Techniques, Correct Positioning, Safety Issues Teaching Recipient: Patient Teaching Methods: Demonstration, Discussion Response to Teaching: Verbalize Understanding, Return Demonstration Discharge Recommendations Plan discharge Time/GCodes Time In: 1046 Time Out: 1100 Total Billed Treatment Time: 14 Total Billed Treatment 1 visit EVL Gulile' NESHA DAVIS PT May 02, 2021 11:10
--- NOTE | 2021-05-02 11:16 | Occupational Therapy Eval ---
OT Evaluation-General/PLF Medical Diagnosis Admission Date Apr 30, 2021 at 21:55 Medical Diagnosis: intractable cyclical vomiting Onset Date: Apr 30, 2021 Therapy Diagnosis Therapy Diagnosis: n/a Height/Weight Height (Feet): 5 Height (Inches): 10.00 Weight (Pounds): 240 Weight (Ounces): 0 Precautions Precautions/Isolations: Standard Precautions Referral Physician: Sylvester Referral Reason: Evaluation/Treatment Medical History Pertinent Medical History: COPD, DM, HTN, Neuropathy Additional Medical History GERD, liver disease/jaundice, arthritis, depression, THC and history illicit drug use - meth Current History frequent hospital stays with nausea/vomiting and abdominal pain. Social History Current Living Status: Other Family (parents) ADL-Prior Level of Function SCALE: Activities may be completed with or without assistive devices. 7-Uynvpnepnm-vfjjhyv completes the activity by him/herself with no assistance from a helper. 5-Set-up or Clean-up Assistance-helper sets up or cleans up; patient completes activity. [place] assists only prior to or following the activity. 4-Supervision or Touching Assistance-helper provides verbal cues and/or touching/steadying and/or contact guard assistance as patient completes activity. Assistance may be provided throughout the activity or intermittently. 3-Partial/Moderate Assistance-helper does LESS THAN HALF the effort. [place] lifts, holds or supports trunk or limbs, but provides less than half the effort. 2-Substantial/Maximal Assistance-helper does MORE THAN HALF the effort. [place] lifts or holds trunk or limbs and provides more than half the effort. 1-Pbowwayqb-nrgbbm does ALL the effort. Patient does none of the effort to complete the activity. Or, the assistance of 2 or more helpers is required for the patient to complete the activity. If activity was not attempted, code reason: 7-Patient Refused. 9-Not Applicable-not attempted and the patient did not perform the activity before the current illness, exacerbation or injury. 10-Not Attempted due to Environmental Limitations-(lack of equipment, weather restraints, etc.). 88-Not Attempted due to Medical Conditions or Safety Concerns. ADL PLOF Comments Pt reports IND with ADLs and functional mobility at PLOF. Self Care: Independent Functional Cognition: Independent OT Current Status Subjective Pt agreeable to OT evaluation. Pt indicates he feels like he is at his PLOF with ADLs, his main barrier is the abdominal pain and n/v. Mental Status/Objective Patient Orientation: Person, Place, Time, Situation Attachments: IV ADL-Treatment Eating (QC): 6 (IND with liquids.) Upper Body Dressing (QC): 5 (set up assist with hospital gown to manuever around IV) Toileting Hygiene (QC): 6 (IND per pt report.) Other Treatments Pt laying in bed, states he just returned from walking with PT. ( Per PT evaluation, pt ambulated 600' in [place], no LOB, pushing his own IV pole, independently.) Pt reports is is up ad stanley in his room and has been taking himself to/from the bathroom independently. Pt requests new hospital gown, OT handed pt gown, he was able to don with assistance around IV. Pt states he is at his PLOF with ADLs and does not wish to have further OT services at this time. Post tx, pt in bed, call light in reach and all needs met. Education OT Patient Education: Correct positioning, Modified ADL techniques, Progress toward Goal/Update tx plan, Purpose of tx/functional activities Teaching Recipient: Patient Teaching Methods: Discussion Response to Teaching: Verbalize Understanding OT [employer] Supervisor Goals [employer] Supervisor Goals 1=Demonstrate adherence to instructed precautions during ADL tasks. 2=Patient will verbalize/demonstrate understanding of assistive devices/modifications for ADL. 3=Patient will improve strength/tolerance for activity to enable patient to perform ADL's. OT Education/Plan Problem List/Assessment Assessment: No Skilled OT Needs ID'd No skilled OT services indicated at this time as pt is independent with ADLs and at PLOF Discharge Recommendations Plan/Recommendations: Discharge/Goals Met Treatment Plan/Plan of Care Patient would benefit from OT for education, treatment and training to promote independence in ADL's, mobility, safety and/or upper extremity function for ADL's. Plan of Care: ADL Retraining Treatment Duration: May 02, 2021 Frequency: 1 time per week (eval only) Time/GCodes Start Time: 11:00 Stop Time: 11:09 Total Time Billed (hr/min): 9 Billed Treatment Time 1, KENDY DESAI OT May 02, 2021 11:16
--- NOTE | 2021-05-02 11:16 | Progress Note - Hospitalist ---
ADÁN GUERRERO 05/02/21 1116: Subjective HPI/CC On Admission Date Seen by Provider: May 02, 2021 Time Seen by Provider: 08:09 Chief complaint: Nausea and vomiting and abdominal pain History of present illness: This is a 35-year-old white male type I diabetic who has frequent hospital stays for nausea and vomiting and abdominal pain. There is a component of gastroparesis and hyperemesis cannabis. Dr. CA's been consulted. Patient will be transferred to the fourth floor. Subjective/Events-last exam When I visited the patient today he was resting in bed and continues to complain of nausea. His last episode of vomiting was yesterday evening. He has been able to drink milk and other fluids, but unable to eat solids. No urinary or lower bowel problems at this time. Review of Systems General: No Chills, No Night Sweats, No Appetite HEENT: No Visual Changes, No Dysphasia, No Sore Throat Pulmonary: No Dyspnea, No Cough, No Pleuritic Chest Pain Cardiovascular: No: Chest Pain, Palpitations, Edema Gastrointestinal: Nausea, Vomiting, Abdominal Pain Genitourinary: No Dysuria, No Frequency, No Incontinence Musculoskeletal: No: neck pain, shoulder pain, arm pain, back pain Neurological: No: Weakness, Numbness, Incoordination, Change in speech Objective Exam Vital Signs Vital Signs Date Time Temp Pulse Resp B/P (MAP) Pulse Ox O2 Delivery O2 Flow Rate FiO2 05/02/21 08:00 Room Air 05/02/21 07:30 36.5 84 18 107/64 (78) 99 Capillary Refill : General Appearance: No Apparent Distress, WD/WN HEENT: PERRL/EOMI, Pharynx Normal Neck: Full Range of Motion, Non Tender, Supple Respiratory: Chest Non Tender, Lungs Clear, Normal Breath Sounds, No Accessory Muscle Use, No Respiratory Distress Cardiovascular: Regular Rate, Rhythm, No Edema, No Gallop, No Murmur, Normal Peripheral Pulses Gastrointestinal: Normal Bowel Sounds, No Organomegaly, No Pulsatile Mass, Non Tender, Soft Rectal: Deferred Back: No CVA Tenderness, No Vertebral Tenderness Extremity: Normal Capillary Refill, Normal Inspection, Normal Range of Motion, Non Tender, No Calf Tenderness, No Pedal Edema Neurologic/Psychiatric: Alert, Oriented x3, No Motor/Sensory Deficits, Normal Mood/Affect, molding machine setter II-XII Norm as Tested Reflexes: 2+ Bicep (R), 2+ Bicep (L) Skin: Normal Color, Warm/Dry Lymphatic: No Adenopathy (cervical and axillary) Results/Procedures Lab Laboratory Tests 05/02/21 05:18 Patient resulted labs reviewed. Assessment/Plan Assessment and Plan Assess & Plan/Chief Complaint Assessment: Abdominal pain acute on chronic Recurrent nausea and vomiting Gastroparesis Hyperemesis cannabis Plan: IV fluids Supportive care Insulin Dr. CA consult 05/02/2021 Supportive care Continue diet as tolerated PT LEXI MCLEAN DO 05/03/21 0540: Subjective Subjective/Events-last exam Pt still having nausea and vomiting and abdominal pain Dr. Ca has no recommendations except for stopping smoking marijuana PT and OT will be ordered since he reports he can't even walk Review of Systems General: Fatigue Objective Exam General Appearance: No Apparent Distress, WD/WN, Chronically ill Respiratory: Lungs Clear, Normal Breath Sounds Cardiovascular: Regular Rate, Rhythm Neurologic/Psychiatric: Alert, Oriented x3 Assessment/Plan Assessment and Plan Assess & Plan/Chief Complaint IV fluids Pain control PT and OT Supervisory-Addendum Brief Verification & Attestation Participated in pt care: history, MDM, physical Personally performed: exam, history, MDM, supervision of care Care discussed with: Medical Student Procedures: n/a Results interpretation: Verified all documentation Verification and Attestation of Medical Student E/M Service A medical student performed and documented this service in my presence. I reviewed and verified all information documented by the medical student and made modifications to such information, when appropriate. I personally performed the physical exam and medical decision making. Lexi Mclean May 03, 2021,05:38 ADÁN GUERRERO May 02, 2021 11:16 LEXI MCLEAN DO May 03, 2021 05:40
[2021-05-02] MEDS ORDERED: LISI10TA25 PO (13:32)
[2021-05-02] MEDS ORDERED: SUCR1TAB36 PO (13:33)
[2021-05-02] MEDS ORDERED: ACET-3075 PO (13:34)
[2021-05-02] MEDS ORDERED: INSU100I29 SQ (15:18)
[2021-05-03] MEDS ORDERED: ACETAMINOPHEN 500 MG TAB (TYLENOL) PO PRN (00:30)
[2021-05-03] MEDS ORDERED: diphenhydrAMINE 25 MG TAB (BENADRYL) PO PRN (00:30)
[2021-05-03] MEDS: fentaNYL INJ 100 MCG/2 ML AMP IV PRN ×2 (03:23→08:12)
[2021-05-03] MEDS: NS W/KCL 20 MEQ/L 1,000 ML IV SCH (04:37)
[2021-05-03 04:38] VITALS: BP 142/76
[2021-05-03] MEDS: SUCRALFATE 1 GM (CARAFATE) TAB PO SCH ×3 (05:27→16:13)
[2021-05-03] MEDS: HYDROcodone/APAP 7.5 MG/325 MG (LORTAB, LORCET PLUS) TABLET PO PRN ×3 (05:29→14:55)
[2021-05-03] MEDS: inSUlin ASPART (NovoLOG) 1 UNIT/0.01 ML (CHARGE PER UNIT) SC SCH ×4 (05:51→12:09)
[2021-05-03] MEDS ORDERED: SUCRALFATE 1 GM (CARAFATE) TAB PO SCH (06:00)
[2021-05-03 06:08] LABS: BASOPHILS % (AUTO) 1 % (0-10); EOSINOPHILS # (AUTO) 0.2 10^3/uL (0.0-0.3); EOSINOPHILS % (AUTO) 5 % (0-10); HEMATOCRIT 34 % (40-54); HEMOGLOBIN 11.2 g/dL (13.3-17.7); LYMPHOCYTES # (AUTO) 1.8 10^3/uL (1.0-4.0); LYMPHOCYTES % (AUTO) 41 % (12-44); MEAN CORPUSCULAR HEMOGLOBIN 30 pg (25-34); MEAN CORPUSCULAR HGB CONC 33 g/dL (32-36); MEAN CORPUSCULAR VOLUME 88 fL (80-99); MEAN PLATELET VOLUME 9.7 fL (9.0-12.2); MONOCYTES # (AUTO) 0.3 10^3/uL (0.0-1.0); MONOCYTES % (AUTO) 8 % (0-12); NEUTROPHILS % (AUTO) 46 % (42-75); PLATELET COUNT 159 10^3/uL (130-400); WHITE BLOOD COUNT 4.3 10^3/uL (4.3-11.0)
[2021-05-03 06:27] LABS: ALBUMIN 3.4 GM/DL (3.2-4.5); POTASSIUM 3.9 MMOL/L (3.6-5.0)
[2021-05-03 06:29] LABS: CALCIUM 8.4 MG/DL (8.5-10.1)
[2021-05-03 06:30] LABS: TOTAL PROTEIN 5.5 GM/DL (6.4-8.2)
[2021-05-03 06:31] LABS: BILIRUBIN,TOTAL 0.4 MG/DL (0.1-1.0)
[2021-05-03 06:33] LABS: CREATININE SERUM 0.66 MG/DL (0.60-1.30)
[2021-05-03] MEDS ORDERED: PANTOPRAZOLE 40 MG (PROTONIX) TAB PO SCH (07:00)
--- NOTE | 2021-05-03 07:01 | Progress Note - Hospitalist ---
Subjective HPI/CC On Admission Date Seen by Provider: May 03, 2021 Time Seen by Provider: 11:00 Chief complaint: Nausea and vomiting and abdominal pain History of present illness: This is a 35-year-old white male type I diabetic who has frequent hospital stays for nausea and vomiting and abdominal pain. There is a component of gastroparesis and hyperemesis cannabis. Dr. PEARSON's been consulted. Patient will be transferred to the fourth floor. Subjective/Events-last exam Pt doing a lot better Walking in halls Nausea after eating but he seems to be doing much better Will heplock IV fluid Checked meds and labs May be able to go home later today Decision was made to discharge Review of Systems General: Fatigue, Malaise Objective Exam Vital Signs Vital Signs Date Time Temp Pulse Resp B/P (MAP) Pulse Ox O2 Delivery O2 Flow Rate FiO2 05/03/21 16:27 36.1 53 20 169/91 99 Room Air Capillary Refill : General Appearance: No Apparent Distress, WD/WN, Chronically ill Respiratory: Lungs Clear Cardiovascular: Regular Rate, Rhythm Results/Procedures Lab Laboratory Tests 05/03/21 05:50 Patient resulted labs reviewed. Assessment/Plan Assessment and Plan Assess & Plan/Chief Complaint Assessment: Nausea vomiting Abdominal pain Hyperemesis cannabis Type 1 diabetes Plan: Supportive care Discharge home CARLOS MCLEAN DO May 03, 2021 07:01
[2021-05-03 07:30] VITALS: BP 146/83
[2021-05-03] MEDS: GABAPENTIN 400 MG (NEURONTIN) CAP PO SCH ×2 (08:17→12:12)
[2021-05-03] MEDS ORDERED: lisINopril 10 MG (PRINIVIL) TABLET PO SCH (09:00)
[2021-05-03] MEDS: ONDANSETRON 4 MG/2 ML (SDV) Z0FRAN IV PRN (09:22)
[2021-05-03] MEDS ORDERED: fentaNYL INJ 100 MCG/2 ML AMP IV PRN (11:15)
[2021-05-03 11:44] VITALS: BP 169/91
[2021-05-03] MEDS ORDERED: INSU100I55 SQ (15:36)
[2021-05-03] MEDS ORDERED: INSU100I29 SQ (15:36)
[2021-05-03] MEDS ORDERED: PANT40TA52 PO (15:36)
[2021-05-03] MEDS ORDERED: LISI10TA25 PO (15:36)
[2021-05-03] MEDS ORDERED: SUCR1TAB36 PO (15:36)
[2021-05-03] MEDS ORDERED: HYDR-34 PO (15:36)
[2021-05-03] MEDS ORDERED: ONDA8TAB13 PO (15:36)
--- NOTE | 2021-05-03 15:38 | Discharge Summary ---
Discharge Summary Hospital Course Was the Problem List Reviewed?: Yes Problems/Dx: (1) Nausea & vomiting Status: Resolved Hospital Course Date of Admission: Apr 30, 2021 at 21:55 Admission Diagnosis : Family Physician/Provider: [facility] Date of Discharge: 05/03/21 Discharge Diagnosis: Nausea and vomiting, abdominal pain, type 1 diabetes Hyperemesis cannabis Hospital Course: Standard course after admitted for abdominal pain and nausea vomiting with insulin and IV fluids and supportive care with Dr. PEARSON consult. Patient had a slow recovery. Patient took a lot of narcotics. Hyperemesis cannabis of factor along with gastroparesis. Patient was deemed stable for discharge. Labs and Pending Lab Test: Laboratory Tests 05/02/21 16:46: Glucometer 173H 05/02/21 20:32: Glucometer 319H 05/03/21 05:50: Glucometer 78, White Blood Count 4.3, Red Blood Count 3.80L, Hemoglobin 11.2L, Hematocrit 34L, Mean Corpuscular Volume 88, Mean Corpuscular Hemoglobin 30, Mean Corpuscular Hemoglobin Concent 33, Red Cell Distribution Width 11.9, Platelet Count 159, Mean Platelet Volume 9.7, Immature Granulocyte % (Auto) 0, Neutrophils (%) (Auto) 46, Lymphocytes (%) (Auto) 41, Monocytes (%) (Auto) 8, Eosinophils (%) (Auto) 5, Basophils (%) (Auto) 1, Neutrophils # (Auto) 2.0, Lymphocytes # (Auto) 1.8, Monocytes # (Auto) 0.3, Eosinophils # (Auto) 0.2, Basophils # (Auto) 0.0, Immature Granulocyte # (Auto) 0.0, Sodium Level 138, Potassium Level 3.9, Chloride Level 107, Carbon Dioxide Level 26, Anion Gap 5, Blood Urea Nitrogen 10, Creatinine 0.66, Estimat Glomerular Filtration Rate 139, BUN/Creatinine Ratio 15, Glucose Level 78, Calcium Level 8.4L, Corrected Calcium 8.9, Total Bilirubin 0.4, Aspartate Amino Transf (AST/SGOT) 34, Alanine Aminotransferase (ALT/SGPT) 42, Alkaline Phosphatase 71, Total Protein 5.5L, Albumin 3.4 05/03/21 10:11: Glucometer 245H Home Meds Active Ondansetron Odt (Ondansetron) 8 Mg Tab.rapdis 8 Mg PO Q6H HYDROcodone/APAP 7.5/325 TAB (Acetaminophen/Hydrocodone Bitart) 1 Ea Tablet 1 Ea PO Q4H PRN Carafate (Sucralfate) 1 Gm Tablet 1 Gm PO ACHS Lisinopril 10 Mg Tablet 10 Mg PO DAILY Pantoprazole Sodium 40 Mg Tablet.dr 40 Mg PO DAILY Insulin Aspart Flexpen (Insulin Aspart) 100 Unit/1 Ml Insuln.pen 5 Unit SQ AC Reported Tylenol Pm Ex-Strength Caplet (Acetaminophen/Diphenhydramine) 1 Each Tablet 1 Each PO HS PRN Gabapentin 800 Mg Tablet 800 Mg PO TID Assessment/Pt Instructions PCP in 1 week Discharge Planning: <30 minutes discharge planning Discharge Instructions Discharge Diet: ADA Diet Discharge Physical Examination Vital Signs Vital Signs Date Time Temp Pulse Resp B/P (MAP) Pulse Ox O2 Delivery O2 Flow Rate FiO2 05/03/21 11:44 36.1 53 20 169/91 (117) 99 Room Air General Appearance: No Apparent Distress, WD/WN Allergies: Coded Allergies: tramadol (Verified Adverse Reaction, Mild, N/V, 12/21/14) Discharge Summary Date of Admission Apr 30, 2021 at 21:55 Date of Discharge Discharge Date: May 03, 2021 Admission Diagnosis Assessment: Abdominal pain acute on chronic Recurrent nausea and vomiting Gastroparesis Hyperemesis cannabis Plan: IV fluids Supportive care Insulin Dr. PEARSON consult Discharge Diagnosis IV fluids Pain control PT and OT CARLOS MCLEAN DO May 03, 2021 15:38
[2021-05-03 16:00] VITALS: BP 167/89
[2021-05-03 16:27] VITALS: BP 169/91
== END 2021-05-03 16:20 | disposition home or self-care (01) | DRG 74 ==
LOC: EDUNIT# 19:08 → ER 19:10 → CSD 21:55 → 4TH 05-01 13:23
PROVIDERS: ADMIT Internal Medicine; ATTEND Internal Medicine
DX: E10.43 Type 1 diabetes mellitus with diabetic autonomic (poly)neuropathy (principal); R11.2 Nausea with vomiting, unspecified; K31.84 Gastroparesis; K76.9 Liver disease, unspecified; M19.90 Unspecified osteoarthritis, unspecified site; M41.9 Scoliosis, unspecified; G89.29 Other chronic pain; M54.9 Dorsalgia, unspecified; K21.00 Gastro-esophageal reflux disease with esophagitis, without bleeding; F32.A Depression, unspecified; Z91.14 Patient's other noncompliance with medication regimen; F17.210 Nicotine dependence, cigarettes, uncomplicated; Z79.82 Long term (current) use of aspirin; Z79.4 Long term (current) use of insulin; Z79.899 Other long term (current) drug therapy; J44.9 Chronic obstructive pulmonary disease, unspecified; F19.10 Other psychoactive substance abuse, uncomplicated; E10.65 Type 1 diabetes mellitus with hyperglycemia
CPT/HCPCS: 36415; 80048; 80053; 80306; 80320; 81000; 82947; 83690; 85025; 86141

== ENCOUNTER 2021-05-18 11:13 | Emergency (ER) | payer SELFPAY ==
[~2021-05-18] VITALS: Ht 177.8 cm; Wt 90.9 kg
[~2021-05-18 11:13] MED LIST changes: +ACET-3075 PO; +HYDR-34 PO; +SUCR1TAB36 PO
[2021-05-18] MEDS ORDERED: NS IV 1000 ML 1,000 ML IV SCH (11:30)
--- NOTE | 2021-05-18 11:31 | ED GI ---
General Chief Complaint: Abdominal/GI Problems Stated Complaint: CHILLS,N/V,FATIGUE Source of Information: Patient Exam Limitations: No Limitations History of Present Illness Date Seen by Provider: May 18, 2021 Time Seen by Provider: 11:29 Initial Comments To ER with fatigue onset yesterday. Developed some vomiting yesterday. Today he is only had nausea without vomiting. Had some diarrhea last night. He has an insulin-dependent diabetic. His sugars yesterday were up to 163, today they were up to 375 for which she took 5 units of NovoLog and did not eat anything. Smokes marijuana daily. Timing/Duration: 1-2 Days Severity/Quality: Moderate Location: Generalized Abdomen Radiation: No Radiation Activities at Onset: None Associated Symptoms: Nausea/Vomiting Allergies and Home Medications Allergies Coded Allergies: tramadol (Verified Adverse Reaction, Mild, N/V, 12/21/14) Patient Home Medication List Home Medication List Reviewed: Yes Acetaminophen/Diphenhydramine (Tylenol Pm Ex-Strength Caplet) 1 Each Tablet, 1 EACH PO HS PRN for SLEEP, (Reported) Entered as Reported by: ANTHONY BLAKELY on 05/02/21 1334 Gabapentin (Gabapentin) 800 Mg Tablet, 800 MG PO TID, (Reported) Entered as Reported by: SAMRA MCCORD on 08/24/20 1424 Hydrocodone Bit/Acetaminophen (HYDROcodone/APAP 7.5/325 TAB) 1 Ea Tablet, 1 EA PO Q4H PRN for PAIN-MODERATE (5-7) Prescribed by: CARLOS MCLEAN on 05/03/21 153 Insulin Aspart (Insulin Aspart Flexpen) 100 Unit/1 Ml Insuln.pen, 5 UNIT SQ AC Prescribed by: CARLOS MCLEAN on 05/03/21 153 Insulin Detemir (Levemir Flextouch) 100 Unit/1 Ml Insuln.pen, 45 UNIT SQ HS Prescribed by: CARLOS MCLEAN on 05/03/211535 Lisinopril (Lisinopril) 10 Mg Tablet, 10 MG PO DAILY Prescribed by: CARLOS MCLEAN on 05/03/211535 Ondansetron (Ondansetron Odt) 8 Mg Tab.rapdis, 8 MG PO Q6H Prescribed by: CARLOS MCLEAN on 05/03/211535 Pantoprazole Sodium (Pantoprazole Sodium) 40 Mg Tablet.dr, 40 MG PO DAILY Prescribed by: CARLOS MCLEAN on 05/03/211535 Sucralfate (Carafate) 1 Gm Tablet, 1 GM PO ACHS Prescribed by: CARLOS MCLEAN on 05/03/211535 Review of Systems Review of Systems Constitutional: see HPI EENTM: No Symptoms Reported Respiratory: No Symptoms Reported Cardiovascular: No Symptoms Reported Gastrointestinal: See HPI, Abdominal Pain Genitourinary: No Symptoms Reported Musculoskeletal: no symptoms reported Skin: no symptoms reported Psychiatric/Neurological: No Symptoms Reported Endocrine: No Symptoms Reported Past [id number] Hx Immunizations Up To Date Tetanus Booster (TDap): Unknown First/Initial COVID19 Vaccinat: 08/11/2020 Second COVID19 Vaccination Kumar: 09/10/2020 Third COVID19 Vaccination Date: 08/11/2020 Seasonal Allergies Seasonal Allergies: No Past Medical History Surgeries: Yes Abdominal, Gallbladder Respiratory: Yes (copd dx by patient) COPD Currently Using CPAP: No Currently Using BIPAP: No Cardiac: Yes Hypertension Neurological: Yes Neuropathy Reproductive Disorders: No Sexually Transmitted Disease: No HIV/AIDS: No Genitourinary: Yes Kidney Infection Gastrointestinal: Yes (ELEVATED LIVER ENZYMES, Hep A) Gastroesophageal Reflux, Liver Disease/Jaundice, Esophagitis Musculoskeletal: Yes Arthritis, Scoliosis, Chronic Back Pain Endocrine: Yes (Type I) Diabetes, Insulin dep HEENT: No Hearing Impairment: Denies Cancer: No Psychosocial: Yes (POLYSUBSTANCE ABUSE) Depression Integumentary: No Blood Disorders: No Adverse Reaction/Blood Tranf: No Family Medical History Alcoholism 19 FATHER G8 BROTHER Congenital heart disease 19 FATHER Family history: Cardiovascular disease 19 FATHER, Onset:40's - 50 Family history: Diabetes mellitus 19 MOTHER Family history: Hypertension 19 FATHER Heart disease 19 FATHER History of - respiratory disease 19 FATHER History of drug abuse 19 MOTHER Hypercholesterolemia 19 FATHER Myocardial infarction 19 FATHER Seizure disorder 19 FATHER No Family History of: Abdominal aortic aneurysm [place]'s disease Cancer Congestive heart failure Cystic fibrosis Dementia Dysphagia Family history: Allergy Family history: Alzheimer's disease Family history: Arthritis Family history: Asthma Family history: Breast disease Family history: Coronary thrombosis Family history: Gastrointestinal disease Family history: Glaucoma Family history: Osteoporosis Family history: Thyroid disorder Headache Hearing loss Hereditary disease History of - anemia History of - disorder Human immunodeficiency virus (HIV) seropositivity Infertile Kidney disease Malignant neoplasm of lung Parkinson's disease Prostate cancer Psychotic disorder Stroke Tuberculosis Visual impairment No Pertinent Family Hx Physical Exam Vital Signs Vital Signs - First Documented 05/18/21 11:23 Pulse 76 Resp 18 B/P (MAP) 96/ Capillary Refill : Height/Weight/BMI Height: 5'10.00" Weight: 240lbs. 0oz. [id number]; 29.81 BMI Method:Stated General Appearance: WD/WN, no apparent distress Neck: non-tender, full range of motion Respiratory: no respiratory distress, no accessory muscle use Cardiovascular: regular rate, rhythm, no murmur Gastrointestinal: normal bowel sounds, non tender, soft Extremities: normal range of motion, non-tender Neurologic/Psychiatric: alert, normal mood/affect, oriented x 3 Skin: normal color, warm/dry Progress/Results/Core Measures Results/Orders Lab Results Laboratory Tests Test 05/18/21 11:40 05/18/21 12:02 Range/Units White Blood Count 6.2 4.3-11.0 10^3/uL Red Blood Count 4.41 4.30-5.52 10^6/uL Hemoglobin 13.1 L 13.3-17.7 g/dL Hematocrit 39 L 40-54 % Mean Corpuscular Volume 88 80-99 fL Mean Corpuscular Hemoglobin 30 25-34 pg Mean Corpuscular Hemoglobin Concent 34 32-36 g/dL Red Cell Distribution Width 11.8 10.0-14.5 % Platelet Count 199 130-400 10^3/uL Mean Platelet Volume 9.3 9.0-12.2 fL Immature Granulocyte % (Auto) 0 % Neutrophils (%) (Auto) 56 42-75 % Lymphocytes (%) (Auto) 33 12-44 % Monocytes (%) (Auto) 5 0-12 % Eosinophils (%) (Auto) 4 0-10 % Basophils (%) (Auto) 1 0-10 % Neutrophils # (Auto) 3.5 1.8-7.8 10^3/uL Lymphocytes # (Auto) 2.1 1.0-4.0 10^3/uL Monocytes # (Auto) 0.3 0.0-1.0 10^3/uL Eosinophils # (Auto) 0.3 0.0-0.3 10^3/uL Basophils # (Auto) 0.1 0.0-0.1 10^3/uL Immature Granulocyte # (Auto) 0.0 0.0-0.1 10^3/uL Sodium Level 134 L 135-145 MMOL/L Potassium Level 4.3 3.6-5.0 MMOL/L Chloride Level 100 98-107 MMOL/L Carbon Dioxide Level 26 21-32 MMOL/L Anion Gap 8 5-14 MMOL/L Blood Urea Nitrogen 18 7-18 MG/DL Creatinine 0.75 0.60-1.30 MG/DL Estimat Glomerular Filtration Rate 120 BUN/Creatinine Ratio 24 Glucose Level 253 H 70-105 MG/DL Calcium Level 8.7 8.5-10.1 MG/DL Corrected Calcium 8.9 8.5-10.1 MG/DL Total Bilirubin 0.4 0.1-1.0 MG/DL Aspartate Amino Transf (AST/SGOT) 24 5-34 U/L Alanine Aminotransferase (ALT/SGPT) 43 0-55 U/L Alkaline Phosphatase 67 40-136 U/L Total Protein 5.9 L 6.4-8.2 GM/DL Albumin 3.8 3.2-4.5 GM/DL Lipase 5 L 8-78 U/L Urine Color YELLOW Urine Clarity CLEAR Urine pH 6.5 5-9 Urine Specific Parker 1.020 1.016-1.022 Urine Protein NEGATIVE NEGATIVE Urine Glucose (UA) 3+ H NEGATIVE Urine Ketones NEGATIVE NEGATIVE Urine Nitrite NEGATIVE NEGATIVE Urine Bilirubin NEGATIVE NEGATIVE Urine Urobilinogen 0.2 < = 1.0 MG/DL Urine Leukocyte Esterase NEGATIVE NEGATIVE Urine RBC (Auto) NEGATIVE NEGATIVE Urine RBC NONE /HPF Urine WBC RARE /HPF Urine Squamous Epithelial Cells RARE /HPF Urine Crystals NONE /LPF Urine Bacteria NEGATIVE /HPF Urine Casts NONE /LPF Urine Mucus NEGATIVE /LPF Urine Culture Indicated NO Urine Opiates Screen NEGATIVE NEGATIVE Urine Oxycodone Screen NEGATIVE NEGATIVE Urine Methadone Screen NEGATIVE NEGATIVE Urine Propoxyphene Screen NEGATIVE NEGATIVE Urine Barbiturates Screen NEGATIVE NEGATIVE Ur Tricyclic Antidepressants Screen NEGATIVE NEGATIVE Urine Phencyclidine Screen NEGATIVE NEGATIVE Urine Amphetamines Screen NEGATIVE NEGATIVE Urine Methamphetamines Screen NEGATIVE NEGATIVE Urine Benzodiazepines Screen NEGATIVE NEGATIVE Urine Cocaine Screen NEGATIVE NEGATIVE Urine Cannabinoids Screen POSITIVE H NEGATIVE My Orders Orders - ZACHERY BAKER SOOT BLOWER Cbc With Automated Diff (05/18/21 11:18) Comprehensive Metabolic Panel (05/18/21 11:18) Lipase (05/18/21 11:18) Ua Culture If Indicated (05/18/21 11:18) Drug Screen Stat (Urine) (05/18/21 11:18) Ekg Tracing (05/18/21 11:18) Ed Iv/Invasive Line Start (05/18/21 11:18) Beta Hydroxybutyrate (05/18/21 11:18) Ns Iv 1000 Ml (Sodium Chloride 0.9%) (05/18/21 11:30) Vital Signs/I&O 05/18/21 11:23 Pulse 76 Resp 18 B/P (MAP) 96/ Departure Communication (Admissions) 1154-patient's father has called, does not want the patient to know that he is cold but is concerned that the patient is only coming out here to get pain medication. He states that during his last admission he received a lot of pain medication and he states that when he brought the patient out here this morning he did not seem sick which makes him think that he is only coming out here to ask for pain medication 1258-labs are unremarkable. He is now complaining of nausea and some abdominal pain. He states that he was given some hydrocodone 7.5 mg upon discharge from his recent hospitalization which did seem to help. I will give him some droperidol 2 mg IV push here and discharge home. Impression Primary Impression: Nausea and vomiting Disposition: 01 HOME, SELF-CARE Condition: Stable Departure-Patient Inst. Decision time for Depature: 12:48 Referrals: [facility] (PCP/Family) Primary Care Physician Patient Instructions: Nausea and Vomiting, Adult ED Add. Discharge Instructions: 1. Return to ER for any concerns 2. Follow-up with your doctor next week 3. All discharge instructions reviewed with patient and/or family. Voiced understanding. ZACHERY BAKER SOOT BLOWER May 18, 2021 11:31
[2021-05-18 11:57] LABS: BASOPHILS # (AUTO) 0.1 10^3/uL (0.0-0.1); BASOPHILS % (AUTO) 1 % (0-10); EOSINOPHILS # (AUTO) 0.3 10^3/uL (0.0-0.3); EOSINOPHILS % (AUTO) 4 % (0-10); HEMATOCRIT 39 % (40-54); HEMOGLOBIN 13.1 g/dL (13.3-17.7); LYMPHOCYTES # (AUTO) 2.1 10^3/uL (1.0-4.0); LYMPHOCYTES % (AUTO) 33 % (12-44); MEAN CORPUSCULAR HEMOGLOBIN 30 pg (25-34); MEAN CORPUSCULAR HGB CONC 34 g/dL (32-36); MEAN CORPUSCULAR VOLUME 88 fL (80-99); MEAN PLATELET VOLUME 9.3 fL (9.0-12.2); MONOCYTES # (AUTO) 0.3 10^3/uL (0.0-1.0); MONOCYTES % (AUTO) 5 % (0-12); NEUTROPHILS # (AUTO) 3.5 10^3/uL (1.8-7.8); NEUTROPHILS % (AUTO) 56 % (42-75); PLATELET COUNT 199 10^3/uL (130-400); WHITE BLOOD COUNT 6.2 10^3/uL (4.3-11.0)
[2021-05-18 12:08] LABS: BILIRUBIN,URINE NEGATIVE (NEGATIVE); CLARITY,URINE CLEAR; COLOR,URINE YELLOW; GLUCOSE, URINE (UA) 3+ (NEGATIVE); KETONES,URINE NEGATIVE (NEGATIVE); LEUKOCYTE ESTERASE ,URINE NEGATIVE (NEGATIVE); NITRITE,URINE NEGATIVE (NEGATIVE); PH,URINE 6.5 (5-9); PROTEIN,URINE NEGATIVE (NEGATIVE)
[2021-05-18 12:12] LABS: ALBUMIN 3.8 GM/DL (3.2-4.5); BILIRUBIN,TOTAL 0.4 MG/DL (0.1-1.0); CALCIUM 8.7 MG/DL (8.5-10.1); CREATININE SERUM 0.75 MG/DL (0.60-1.30); POTASSIUM 4.3 MMOL/L (3.6-5.0); TOTAL PROTEIN 5.9 GM/DL (6.4-8.2)
[2021-05-18 12:17] LABS: BACTERIA,URINE NEGATIVE /HPF; SQUAMOUS EPITHELIAL CELL,UR RARE /HPF; WBC,URINE RARE /HPF
[2021-05-18 12:22] LABS: AMPHETAMINE SCREEN, URINE NEGATIVE (NEGATIVE); BARBITURATE SCREEN URINE NEGATIVE (NEGATIVE); BENZODIAZEPINES SCREEN URINE NEGATIVE (NEGATIVE); CANNABINOID SCREEN, URINE POSITIVE (NEGATIVE); COCAINE SCREEN URINE NEGATIVE (NEGATIVE); METHADONE STAT NEGATIVE (NEGATIVE); METHAMPHETAMINE SCREEN URINE S NEGATIVE (NEGATIVE); OPIATE SCREEN URINE NEGATIVE (NEGATIVE); OXYCODONE STAT NEGATIVE (NEGATIVE); PROPOXYPHENE STAT NEGATIVE (NEGATIVE); TRICYCLIC ANTIDEPRESSANTS SCRE NEGATIVE (NEGATIVE)
[2021-05-18] MEDS ORDERED: DROPERIDOL 5 MG/2 ML (INAPSINE) ED ONLY! IV ONE (13:00)
[2021-05-18 13:19] VITALS: BP 114/73
== END 2021-05-18 13:23 | disposition home or self-care (01) ==
LOC: EDUNIT# 11:13 → ER 11:15
DX: R11.2 Nausea with vomiting, unspecified (principal); F12.20 Cannabis dependence, uncomplicated; E11.40 Type 2 diabetes mellitus with diabetic neuropathy, unspecified; I10 Essential (primary) hypertension; K21.00 Gastro-esophageal reflux disease with esophagitis, without bleeding; J44.9 Chronic obstructive pulmonary disease, unspecified; Z88.5 Allergy status to narcotic agent; Z79.4 Long term (current) use of insulin; Z79.899 Other long term (current) drug therapy
CPT/HCPCS: 36415; 80053; 80306; 81000; 82010; 83690; 85025; 93005

== ENCOUNTER 2021-06-05 07:25 | Emergency (ER) | payer SELFPAY ==
[~2021-06-05] VITALS: Ht 175 cm; Wt 95.0 kg
--- NOTE | 2021-06-05 07:46 | ED Abdominal Pain ---
General Chief Complaint: Abdominal/GI Problems Stated Complaint: N/V Source of Information: Patient, Other (discussed with provider at [facility] by KENNETH Rivas) History of Present Illness Date Seen by Provider: Jun 05, 2021 Time Seen by Provider: 07:41 Initial Comments Patient is a 35-year-old male who presents to the emergency department with a chief complaint of abdominal pain, nausea and vomiting onset about midnight last night. Patient has a history of known gastroparesis secondary to diabetes as well as hyperemesis secondary to cannabinoid use. Frequent visits to the emergency room with subsequent admissions. Patient states that he went to [facility] by ambulance around 1 AM this morning and was discharged about an hour prior to arrival at this facility. Patient states "they did not do anything for me". We were able to talk to [place] to get treatment information. Patient was noted to have a blood sugar a little over 400 and was given medications to include Ativan, Phenergan, Pepcid, Protonix and fentanyl. Patient denies any fevers, chills, cough or congestion. He states that he is Covid vaccinated in August. He cannot recall exact dates. He states that he did get a booster but does not have his wallet and cannot recall the dates. He is not short of breath. He is not having diarrhea. No black or bloody stools or problems with urination. Patient states that he is still smoking marijuana. Does not routinely check his blood sugars. He states the last time he vomited was just prior to walking into the emergency department this morning. All other review of systems reviewed and negative except as stated Timing/Duration: 4-6 Hours Severity/Quality: Severe, Cramping Location: Generalized Abdomen Radiation: No Radiation Activities at Onset: Sleeping Associated Symptoms: Nausea/Vomiting Allergies and Home Medications Allergies Coded Allergies: tramadol (Verified Adverse Reaction, Mild, N/V, 12/21/14) Patient Home Medication List Home Medication List Reviewed: Yes Acetaminophen/Diphenhydramine (Tylenol Pm Ex-Strength Caplet) 1 Each Tablet, 1 EACH PO HS PRN for SLEEP, (Reported) Entered as Reported by: ANTHONY BLAKELY on 05/02/21 1334 Gabapentin (Gabapentin) 800 Mg Tablet, 800 MG PO TID, (Reported) Entered as Reported by: SAMRA MCCORD on 08/24/20 1424 Hydrocodone Bit/Acetaminophen (HYDROcodone/APAP 7.5/325 TAB) 1 Ea Tablet, 1 EA PO Q4H PRN for PAIN-MODERATE (5-7) Prescribed by: CARLOS MCLEAN on 05/03/211535 Insulin Aspart (Insulin Aspart Flexpen) 100 Unit/1 Ml Insuln.pen, 5 UNIT SQ AC Prescribed by: CARLOS MCLEAN on 05/03/211535 Insulin Detemir (Levemir Flextouch) 100 Unit/1 Ml Insuln.pen, 45 UNIT SQ HS Prescribed by: CARLOS MCLEAN on 05/03/211535 Lisinopril (Lisinopril) 10 Mg Tablet, 10 MG PO DAILY Prescribed by: CARLOS MCLEAN on 05/03/211535 Ondansetron (Ondansetron Odt) 8 Mg Tab.rapdis, 8 MG PO Q6H Prescribed by: CARLOS MCLEAN on 05/03/211535 Ondansetron (Ondansetron Odt) 4 Mg Tab.rapdis, 8 MG PO Q8H PRN for NAUSEA/VOMITING Prescribed by: JG VILLAVICENCIO on 06/05/21 103 Pantoprazole Sodium (Pantoprazole Sodium) 40 Mg Tablet.dr, 40 MG PO DAILY Prescribed by: CARLOS MCLEAN on 05/03/211535 Sucralfate (Carafate) 1 Gm Tablet, 1 GM PO ACHS Prescribed by: CARLOS MCLEAN on 05/03/211535 Review of Systems Review of Systems Constitutional: see HPI EENTM: No Symptoms Reported Respiratory: No Symptoms Reported Cardiovascular: No Symptoms Reported Gastrointestinal: Abdominal Pain, Nausea, Vomiting Genitourinary: No Symptoms Reported Musculoskeletal: no symptoms reported Skin: no symptoms reported All Other Systems Reviewed Negative Unless Noted: Yes Past Yqjrmln-Aungfa-Zhnpfx Hx Immunizations Up To Date Tetanus Booster (TDap): Unknown First/Initial COVID19 Vaccinat: August COVID19 Vaccination Kumar: September COVID19 Vaccination Date: 08/11/2020 Seasonal Allergies Seasonal Allergies: No Past Medical History Surgeries: Yes Abdominal, Gallbladder Respiratory: Yes (copd dx by patient) COPD Currently Using CPAP: No Currently Using BIPAP: No Cardiac: Yes Hypertension Neurological: Yes Neuropathy Reproductive Disorders: No Sexually Transmitted Disease: No HIV/AIDS: No Genitourinary: Yes Kidney Infection Gastrointestinal: Yes (ELEVATED LIVER ENZYMES, Hep A) Gastroesophageal Reflux, Liver Disease/Jaundice, Esophagitis Musculoskeletal: Yes Arthritis, Scoliosis, Chronic Back Pain Endocrine: Yes (Type I) Diabetes, Insulin dep HEENT: No Hearing Impairment: Denies Cancer: No Psychosocial: Yes (POLYSUBSTANCE ABUSE) Depression Integumentary: No Blood Disorders: No Adverse Reaction/Blood Tranf: No Family Medical History Alcoholism 19 FATHER G8 BROTHER Congenital heart disease 19 FATHER Family history: Cardiovascular disease 19 FATHER, Onset:40's - 50 Family history: Diabetes mellitus 19 MOTHER Family history: Hypertension 19 FATHER Heart disease 19 FATHER History of - respiratory disease 19 FATHER History of drug abuse 19 MOTHER Hypercholesterolemia 19 FATHER Myocardial infarction 19 FATHER Seizure disorder 19 FATHER No Family History of: Abdominal aortic aneurysm Franklin's disease Cancer Congestive heart failure Cystic fibrosis Dementia Dysphagia Family history: Allergy Family history: Alzheimer's disease Family history: Arthritis Family history: Asthma Family history: Breast disease Family history: Coronary thrombosis Family history: Gastrointestinal disease Family history: Glaucoma Family history: Osteoporosis Family history: Thyroid disorder Headache Hearing loss Hereditary disease History of - anemia History of - disorder Human immunodeficiency virus (HIV) seropositivity Infertile Kidney disease Malignant neoplasm of lung Parkinson's disease Prostate cancer Psychotic disorder Stroke Tuberculosis Visual impairment No Pertinent Family Hx Physical Exam Vital Signs Vital Signs - First Documented 06/05/21 07:30 Temp 36.1 Pulse 88 Resp 16 B/P (MAP) 159/92 (114) Pulse Ox 98 O2 Delivery Room Air Capillary Refill : Height/Weight/BMI Height: 5'10.00" Weight: 240lbs. 0oz. [id number]; 28.00 BMI Method:Stated General Appearance: WD/WN, no apparent distress, other (Patient appears sedate. He frequently appears to fall asleep while I am talking to him.) HEENT: PERRL/EOMI Neck: normal inspection Respiratory: lungs clear, normal breath sounds, no respiratory distress, no accessory muscle use Cardiovascular: regular rate, rhythm, other (2+ radial pulses bilaterally) Gastrointestinal: soft, abnormal bowel sounds (Hypoactive), tenderness (Voluntary guarding), other (Abdomen is nondistended) Extremities: normal range of motion, normal inspection Neurologic/Psychiatric: no motor/sensory deficits, normal mood/affect, oriented x 3, other (Somnolent) Skin: normal color, warm/dry Progress/Results/Core Measures Results/Orders Lab Results Laboratory Tests Test 06/05/21 08:05 06/05/21 09:04 06/05/21 09:21 Range/Units White Blood Count 7.1 4.3-11.0 10^3/uL Red Blood Count 4.63 4.30-5.52 10^6/uL Hemoglobin 13.5 13.3-17.7 g/dL Hematocrit 40 40-54 % Mean Corpuscular Volume 87 80-99 fL Mean Corpuscular Hemoglobin 29 25-34 pg Mean Corpuscular Hemoglobin Concent 34 32-36 g/dL Red Cell Distribution Width 11.9 10.0-14.5 % Platelet Count 194 130-400 10^3/uL Mean Platelet Volume 9.5 9.0-12.2 fL Immature Granulocyte % (Auto) 0 % Neutrophils (%) (Auto) 78 H 42-75 % Lymphocytes (%) (Auto) 17 12-44 % Monocytes (%) (Auto) 3 0-12 % Eosinophils (%) (Auto) 0 0-10 % Basophils (%) (Auto) 1 0-10 % Neutrophils # (Auto) 5.6 1.8-7.8 10^3/uL Lymphocytes # (Auto) 1.2 1.0-4.0 10^3/uL Monocytes # (Auto) 0.2 0.0-1.0 10^3/uL Eosinophils # (Auto) 0.0 0.0-0.3 10^3/uL Basophils # (Auto) 0.1 0.0-0.1 10^3/uL Immature Granulocyte # (Auto) 0.0 0.0-0.1 10^3/uL Sodium Level 138 135-145 MMOL/L Potassium Level 4.2 3.6-5.0 MMOL/L Chloride Level 104 98-107 MMOL/L Carbon Dioxide Level 19 L 21-32 MMOL/L Anion Gap 15 H 5-14 MMOL/L Blood Urea Nitrogen 19 H 7-18 MG/DL Creatinine 0.74 0.60-1.30 MG/DL Estimat Glomerular Filtration Rate 122 BUN/Creatinine Ratio 26 Glucose Level 294 H 70-105 MG/DL Calcium Level 8.6 8.5-10.1 MG/DL Beta-Hydroxybutyrate (Chem panel) 2.98 H 0.00-0.27 MMOL/L Glucometer 258 H 70-110 MG/DL Blood Gas Puncture Site RIGHT RADIAL Blood Gas Patient Temperature 36.0 Arterial Blood pH 7.34 *L 7.37-7.43 Arterial Blood Partial Pressure CO2 36 35-45 MMHG Arterial Blood Partial Pressure O2 93 79-93 MMHG Arterial Blood HCO3 19 L 23-27 MMOL/L Arterial Blood Total CO2 20.4 L 21.0-31.0 MMOL/L Arterial Blood Oxygen Saturation 95 94-100 % Arterial Blood Base Excess -5.6 L -2.5-2.5 MMOL/L Mauri Test POSITIVE Blood Gas Ventilator Setting NO Blood Gas Inspired Oxygen RA My Orders Orders - JG VILLAVICENCIO MD Ekg Tracing (06/05/21 07:50) Basic Metabolic Panel (06/05/21 07:50) Ns Iv 1000 Ml (Sodium Chloride 0.9%) (06/05/21 08:00) Beta Hydroxybutyrate (06/05/21 07:50) Cbc With Automated Diff (06/05/21 07:50) Accucheck Stat ONCE (06/05/21 09:00) Arterial Blood Gas (06/05/21 09:15) Arterial Blood Draw - Obtain (06/05/21 09:21) Droperidol Inj (Ed Only) (Inapsine Inj ( (06/05/21 09:45) Ns Iv 1000 Ml (Sodium Chloride 0.9%) (06/05/21 09:45) Insulin (Regular) Human (Novolin R (Per (06/05/21 09:43) Medications Given in ED Current Medications Medications Dose Ordered Sig/Fer Route Start Time Stop Time Status Last Admin Dose Admin Droperidol 2.5 mg ONCE ONCE IV 06/05/21 09:45 06/05/21 09:46 DC 06/05/21 09:50 2.5 MG Vital Signs/I&O 06/05/21 07:30 Temp 36.1 Pulse 88 Resp 16 B/P (MAP) 159/92 (114) Pulse Ox 98 O2 Delivery Room Air Progress Progress Note #1: Time: 07:56 Progress Note Patient seen and examined by me, 35-year-old male with a history of diabetic gastroparesis and hyperemesis secondary to THC. Is somnolent on my initial evaluation requires constant stimulation to get him to talk. States that he has intractable nausea vomiting and abdominal pain. Has voluntary guarding in the abdomen, nondistended nonfocal tenderness. Denies fever. I do not suspect an acute surgical abdomen. We will check some basic labs as well as an EKG. probably give him some Toradol for pain. Consider Inapsine if he starts dry heaving.. [id number] Notified by his nurse KENNETH Rivas that she walked into start the patient's IV and found him with his fingers down his throat trying to gag himself. when i asked him about this, he states "its the only way I can get the nausea to go away" Progress Note #2: Time: 08:58 Progress Note I reviewed patient's labs. He has a depressed CO2, and AG of 15. betahydroxybutyrate is almost 3. Will check an ABG to evaluate further for acidosis. Blood sugar is only 294. He has completed a liter of fluids. Progress Note #3: Time: 09:06 Progress Note bedside glucose currently 258 Progress Note #4: Time: 10:28 Progress Note Patient reevaluated, resting comfortably. No more nausea. Vital signs are stable. Hydrated with a second liter of fluid and given some regular insulin subcu. At this point I do not believe that he needs admission for his nausea. I suspect a combination of diabetic gastroparesis with his chronic THC use. Electrolytes are normal. He was a little dehydrated otherwise on his labs. CBC is normal. Beta hydroxybutyrate level was a little bit elevated, pH 7.37. This is all at the borderline of DKA. I have encouraged lots of fluids at home, continue ondansetron for nausea 8 mg every 8 hours. Follow-up with primary care. Return precautions given. Initial ECG Impression Date: Jun 05, 2021 Initial ECG Impression Time: 07:57 Initial ECG Rate: 83 Initial ECG Rhythm: Normal Sinus (Sinus arrhythmia) Initial ECG Intervals: Normal Initial ECG Intervals HI 164 QRS 86 QTc 480 Initial ECG Impression: Normal Comment Sinus arrhythmia noted Departure Impression Primary Impression: Cannabinoid hyperemesis syndrome Additional Impressions: Abdominal pain Qualified Codes: R10.84 - Generalized abdominal pain Hyperglycemia Dehydration Disposition: 01 HOME, SELF-CARE Condition: Stable Departure-Patient Inst. Decision time for Depature: 10:31 Ref[place]: [facility] [place] Primary Care Physician Patient Instructions: Nausea and Vomiting, Adult ED Add. Discharge Instructions: Please call [facility] first thing in the morning for a follow-up appointment either tomorrow or Sunday. Take ondansetron 8 mg every 8 hours as needed for nausea and vomiting. Follow a clear liquid diet today for 12 hours then slowly advance as tolerated. Please monitor your sugars 3 times a day. Return to the emergency room for fever, worse pain, worse vomiting or any other emergent concerning symptoms. Scripts Ondansetron (Ondansetron Odt) 4 Mg Tab.rapdis 8 MG PO Q8H PRN for NAUSEA/VOMITING, #20 TAB 0 Refills Prov: JG VILLAVICENCIO MD 06/05/21 Copy Copies To 1: WESTON DOTY KATHRYN M MD Jun 05, 2021 07:46
[2021-06-05] MEDS ORDERED: NS IV 1000 ML 1,000 ML IV SCH ×2 (08:00→09:45)
[2021-06-05 08:18] LABS: BASOPHILS # (AUTO) 0.1 10^3/uL (0.0-0.1); BASOPHILS % (AUTO) 1 % (0-10); EOSINOPHILS % (AUTO) 0 % (0-10); HEMATOCRIT 40 % (40-54); HEMOGLOBIN 13.5 g/dL (13.3-17.7); LYMPHOCYTES # (AUTO) 1.2 10^3/uL (1.0-4.0); LYMPHOCYTES % (AUTO) 17 % (12-44); MEAN CORPUSCULAR HEMOGLOBIN 29 pg (25-34); MEAN CORPUSCULAR HGB CONC 34 g/dL (32-36); MEAN CORPUSCULAR VOLUME 87 fL (80-99); MEAN PLATELET VOLUME 9.5 fL (9.0-12.2); MONOCYTES # (AUTO) 0.2 10^3/uL (0.0-1.0); MONOCYTES % (AUTO) 3 % (0-12); NEUTROPHILS # (AUTO) 5.6 10^3/uL (1.8-7.8); NEUTROPHILS % (AUTO) 78 % (42-75); PLATELET COUNT 194 10^3/uL (130-400); WHITE BLOOD COUNT 7.1 10^3/uL (4.3-11.0)
[2021-06-05 08:33] LABS: POTASSIUM 4.2 MMOL/L (3.6-5.0)
[2021-06-05 08:34] LABS: CALCIUM 8.6 MG/DL (8.5-10.1)
[2021-06-05 08:39] LABS: CREATININE SERUM 0.74 MG/DL (0.60-1.30)
[2021-06-05 09:30] LABS: ABG BASE EXCESS -5.6 MMOL/L (-2.5-2.5); ABG OXYGEN SATURATION 95 % (94-100); ABG PCO2 36 MMHG (35-45); ABG PO2 93 MMHG (79-93); ABG TCO2 20.4 MMOL/L (21.0-31.0); ALLENS TEST POSITIVE; INSPIRED O2 RA; VENTILATOR NO
[2021-06-05 09:31] LABS: ABG PH 7.34 (7.37-7.43)
[2021-06-05] MEDS ORDERED: inSUlin (REGULAR) HUMAN 1 UNIT/0.01 ML (CHARGE PER UNIT) SC STA (09:43)
[2021-06-05] MEDS ORDERED: DROPERIDOL 5 MG/2 ML (INAPSINE) ED ONLY! IV ONE (09:45)
[2021-06-05] MEDS ORDERED: ONDA4TAB11 PO (10:32)
[2021-06-05 10:56] VITALS: BP 121/81
== END 2021-06-05 10:56 | disposition home or self-care (01) ==
LOC: EDUNIT# 07:25 → ER 07:26
DX: R11.2 Nausea with vomiting, unspecified (principal); R10.84 Generalized abdominal pain; E86.0 Dehydration; E10.65 Type 1 diabetes mellitus with hyperglycemia; J44.9 Chronic obstructive pulmonary disease, unspecified; I10 Essential (primary) hypertension; K21.9 Gastro-esophageal reflux disease without esophagitis; G89.29 Other chronic pain; M54.9 Dorsalgia, unspecified; Z79.891 Long term (current) use of opiate analgesic; Z79.899 Other long term (current) drug therapy
CPT/HCPCS: 36415; 36600; 80048; 82010; 82805; 82947; 85025; 93005

== ENCOUNTER 2021-06-06 08:28 | Inpatient (IN) | payer SELFPAY ==
[~2021-06-06] VITALS: Ht 177.8 cm; Wt 88.6 kg
[~2021-06-06 08:28] MED LIST changes: +ONDA4TAB11 PO
--- NOTE | 2021-06-06 08:53 | ED Abdominal Pain ---
General Chief Complaint: Abdominal/GI Problems Stated Complaint: ABD PAIN Source of Information: Patient Exam Limitations: No Limitations History of Present Illness Date Seen by Provider: Jun 06, 2021 Time Seen by Provider: 08:45 Initial Comments Patient is a 35-year-old male who presents to the emergency room with a chief complaint of worsening abdominal pain, nausea and vomiting. Patient has a long history of medical noncompliance regarding his diabetes. He was seen at [facility] yesterday morning, received multiple medications for his nausea and vomiting, checked out and then came here and was seen by me. Patient was given some Inapsine and more fluids. He was given 10 units of regular insulin subcu. Blood sugars came down to 211. He was sent home with Zofran. He states throughout the night he became more nauseous and had continued vomiting. He has worsening pain. The only thing he took was 1 tablet of Zofran around 2 AM. He states he has not taken any insulin today at all. Mild sore throat. Covid vaccinated. No shortness of breath or cough. All other review of systems reviewed and negative except as stated. Timing/Duration: 12-24 Hours Severity/Quality: Severe Location: Generalized Abdomen Radiation: No Radiation Associated Symptoms: Nausea/Vomiting, Weakness Allergies and Home Medications Allergies Coded Allergies: tramadol (Verified Adverse Reaction, Mild, N/V, 12/21/14) Patient Home Medication List Home Medication List Reviewed: Yes Acetaminophen/Diphenhydramine (Tylenol Pm Ex-Strength Caplet) 1 Each Tablet, 1 EACH PO HS PRN for SLEEP, (Reported) Entered as Reported by: ANTHNOY BLAKELY on 05/02/21 1334 Gabapentin (Gabapentin) 800 Mg Tablet, 800 MG PO TID, (Reported) Entered as Reported by: SAMRA MCCORD on 08/24/20 1424 Hydrocodone Bit/Acetaminophen (HYDROcodone/APAP 7.5/325 TAB) 1 Ea Tablet, 1 EA PO Q4H PRN for PAIN-MODERATE (5-7) Prescribed by: CARLOS MCLEAN on 05/03/21 1536 Insulin Aspart (Insulin Aspart Flexpen) 100 Unit/1 Ml Insuln.pen, 5 UNIT SQ AC Prescribed by: CARLOS MCLEAN on 05/03/21 1536 Insulin Detemir (Levemir Flextouch) 100 Unit/1 Ml Insuln.pen, 45 UNIT SQ HS Prescribed by: CARLOS MCLEAN on 05/03/211535 Lisinopril (Lisinopril) 10 Mg Tablet, 10 MG PO DAILY Prescribed by: CARLOS MCLEAN on 05/03/211535 Ondansetron (Ondansetron Odt) 8 Mg Tab.rapdis, 8 MG PO Q6H Prescribed by: CARLOS MCLEAN on 05/03/21 153 Ondansetron (Ondansetron Odt) 4 Mg Tab.rapdis, 8 MG PO Q8H PRN for NAUSEA/VOMITING Prescribed by: JG VILLAVICENCIO on 06/05/21 103 Pantoprazole Sodium (Pantoprazole Sodium) 40 Mg Tablet.dr, 40 MG PO DAILY Prescribed by: CARLOS MCLEAN on 05/03/211535 Sucralfate (Carafate) 1 Gm Tablet, 1 GM PO ACHS Prescribed by: CARLOS MCLEAN on 05/03/211535 Review of Systems Review of Systems Constitutional: see HPI EENTM: Other (dry mouth) Respiratory: No Symptoms Reported Cardiovascular: No Symptoms Reported Gastrointestinal: Abdominal Pain, Nausea, Poor Appetite, Vomiting Genitourinary: No Symptoms Reported Musculoskeletal: muscle cramps ("hurts all over") Skin: no symptoms reported Psychiatric/Neurological: No Symptoms Reported All Other Systems Reviewed Negative Unless Noted: Yes Past Wegzanz-Cwvejc-Chohno Hx Immunizations Up To Date Tetanus Booster (TDap): Unknown First/Initial COVID19 Vaccinat: August COVID19 Vaccination Kumar: September COVID19 Vaccination Date: 08/11/2020 Seasonal Allergies Seasonal Allergies: No Past Medical History Surgeries: Yes Abdominal, Gallbladder Respiratory: Yes (copd dx by patient) COPD Currently Using CPAP: No Currently Using BIPAP: No Cardiac: Yes Hypertension Neurological: Yes Neuropathy Reproductive Disorders: No Sexually Transmitted Disease: No HIV/AIDS: No Genitourinary: Yes Kidney Infection Gastrointestinal: Yes (ELEVATED LIVER ENZYMES, Hep A) Gastroesophageal Reflux, Liver Disease/Jaundice, Esophagitis Musculoskeletal: Yes Arthritis, Scoliosis, Chronic Back Pain Endocrine: Yes (Type I) Diabetes, Insulin dep HEENT: No Hearing Impairment: Denies Cancer: No Psychosocial: Yes (POLYSUBSTANCE ABUSE) Depression Integumentary: No Blood Disorders: No Adverse Reaction/Blood Tranf: No Family Medical History Alcoholism 19 FATHER G8 BROTHER Congenital heart disease 19 FATHER Family history: Cardiovascular disease 19 FATHER, Onset:40's - 50 Family history: Diabetes mellitus 19 MOTHER Family history: Hypertension 19 FATHER Heart disease 19 FATHER History of - respiratory disease 19 FATHER History of drug abuse 19 MOTHER Hypercholesterolemia 19 FATHER Myocardial infarction 19 FATHER Seizure disorder 19 FATHER No Family History of: Abdominal aortic aneurysm [place]'s disease Cancer Congestive heart failure Cystic fibrosis Dementia Dysphagia Family history: Allergy Family history: Alzheimer's disease Family history: Arthritis Family history: Asthma Family history: Breast disease Family history: Coronary thrombosis Family history: Gastrointestinal disease Family history: Glaucoma Family history: Osteoporosis Family history: Thyroid disorder Headache Hearing loss Hereditary disease History of - anemia History of - disorder Human immunodeficiency virus (HIV) seropositivity Infertile Kidney disease Malignant neoplasm of lung Parkinson's disease Prostate cancer Psychotic disorder Stroke Tuberculosis Visual impairment No Pertinent Family Hx Physical Exam Vital Signs Vital Signs - First Documented 06/06/21 08:33 Temp 36.7 Pulse 132 Resp 18 B/P (MAP) 137/65 (89) Pulse Ox 100 O2 Delivery Room Air Capillary Refill : Height/Weight/BMI Height: 5'10.00" Weight: 240lbs. 0oz. 108.772924ft; 31.00 BMI Method:Stated General Appearance: WD/WN, moderate distress HEENT: other (very dry oral mucosa) Neck: full range of motion, supple, normal inspection Respiratory: lungs clear, normal breath sounds, no respiratory distress, no accessory muscle use Cardiovascular: regular rate, rhythm, tachycardia (128) Gastrointestinal: soft, other (tenderness to just shaking the skin of his anterior abdominal wall; with deeper palpation, same pain elicited. no rebound. has voluntary guarding; hypoactive BS) Extremities: normal range of motion, non-tender, normal inspection, no pedal edema, no calf tenderness Neurologic/Psychiatric: alert, oriented x 3, depressed affect Skin: normal color, warm/dry Progress/Results/Core Measures Results/Orders Lab Results Laboratory Tests Test 06/06/21 08:41 06/06/21 08:47 06/06/21 09:10 06/06/21 09:44 Range/Units Glucometer 376 H 358 H 70-110 MG/DL White Blood Count 18.1 H 4.3-11.0 10^3/uL Red Blood Count 4.61 4.30-5.52 10^6/uL Hemoglobin 13.6 13.3-17.7 g/dL Hematocrit 42 40-54 % Mean Corpuscular Volume 91 80-99 fL Mean Corpuscular Hemoglobin 30 25-34 pg Mean Corpuscular Hemoglobin Concent 32 32-36 g/dL Red Cell Distribution Width 12.1 10.0-14.5 % Platelet Count 283 130-400 10^3/uL Mean Platelet Volume 9.8 9.0-12.2 fL Immature Granulocyte % (Auto) 1 % Neutrophils (%) (Auto) 88 H 42-75 % Lymphocytes (%) (Auto) 9 L 12-44 % Monocytes (%) (Auto) 2 0-12 % Eosinophils (%) (Auto) 0 0-10 % Basophils (%) (Auto) 0 0-10 % Neutrophils # (Auto) 15.9 H 1.8-7.8 10^3/uL Lymphocytes # (Auto) 1.7 1.0-4.0 10^3/uL Monocytes # (Auto) 0.4 0.0-1.0 10^3/uL Eosinophils # (Auto) 0.0 0.0-0.3 10^3/uL Basophils # (Auto) 0.1 0.0-0.1 10^3/uL Immature Granulocyte # (Auto) 0.1 0.0-0.1 10^3/uL Neutrophils % (Manual) 86 % Lymphocytes % (Manual) 11 % Monocytes % (Manual) 1 % Band Neutrophils 2 % Blood Morphology Comment NORMAL Sodium Level 131 L 135-145 MMOL/L Potassium Level 4.4 3.6-5.0 MMOL/L Chloride Level 100 98-107 MMOL/L Carbon Dioxide Level 9 *L 21-32 MMOL/L Anion Gap 22 H 5-14 MMOL/L Blood Urea Nitrogen 24 H 7-18 MG/DL Creatinine 0.95 0.60-1.30 MG/DL Estimat Glomerular Filtration Rate 91 BUN/Creatinine Ratio 25 Glucose Level 405 *H 70-105 MG/DL Calcium Level 8.6 8.5-10.1 MG/DL Corrected Calcium 8.8 8.5-10.1 MG/DL Total Bilirubin 0.8 0.1-1.0 MG/DL Aspartate Amino Transf (AST/SGOT) 18 5-34 U/L Alanine Aminotransferase (ALT/SGPT) 31 0-55 U/L Alkaline Phosphatase 72 40-136 U/L Total Protein 6.1 L 6.4-8.2 GM/DL Albumin 3.7 3.2-4.5 GM/DL Lipase 12 8-78 U/L Beta-Hydroxybutyrate (Chem panel) 8.33 H 0.00-0.27 MMOL/L Blood Gas Puncture Site RT RAD Blood Gas Patient Temperature 36.7 Arterial Blood pH 7.24 *L 7.37-7.43 Arterial Blood Partial Pressure CO2 22 L 35-45 MMHG Arterial Blood Partial Pressure O2 117 H 79-93 MMHG Arterial Blood HCO3 9 *L 23-27 MMOL/L Arterial Blood Total CO2 9.6 *L 21.0-31.0 MMOL/L Arterial Blood Oxygen Saturation 95 94-100 % Arterial Blood Base Excess -17.2 L -2.5-2.5 MMOL/L Mauri Test YES-POS Blood Gas Ventilator Setting NO Blood Gas Inspired Oxygen ROOM AIR My Orders Orders - JG VILLAIVCENCIO MD Ed Iv/Invasive Line Start (06/06/21 08:55) Cbc With Automated Diff (06/06/21 08:55) Comprehensive Metabolic Panel (06/06/21 08:55) Lipase (06/06/21 08:55) Ua Culture If Indicated (06/06/21 08:55) Chest 1 View, Ap/Pa Only (06/06/21 08:55) Beta Hydroxybutyrate (06/06/21 08:55) Ns Iv 1000 Ml (Sodium Chloride 0.9%) (06/06/21 09:00) Metoclopramide Injection (Reglan Injecti (06/06/21 09:00) Diphenhydramine Injection (Benadryl Inje (06/06/21 09:00) Insulin (Regular) Human (Novolin R (Per (06/06/21 11:00) Insulin (Regular) Human (Novolin R (Per (06/06/21 08:55) Manual Differential (06/06/21 08:47) Arterial Blood Gas (06/06/21 09:10) Insulin Regular Drip (Myxredlin 100 Unit (06/06/21 09:30) Medications Given in ED Current Medications Medications Dose Ordered Sig/Fer Route Start Time Stop Time Status Last Admin Dose Admin Diphenhydramine HCl 50 mg ONCE ONCE IVP 06/06/21 09:00 06/06/21 09:01 DC 06/06/21 09:12 50 MG Metoclopramide HCl 10 mg ONCE ONCE IVP 06/06/21 09:00 06/06/21 09:01 DC 06/06/21 09:11 10 MG Vital Signs/I&O 06/06/21 08:33 Temp 36.7 Pulse 132 Resp 18 B/P (MAP) 137/65 (89) Pulse Ox 100 O2 Delivery Room Air Admisison Planning May Need Admission (Planning): : Initial ECG Impression Date: Jun 06, 2021 Initial ECG Impression Time: 09:00 Initial ECG Rate: 125 Initial ECG Rhythm: S.Tach Initial ECG Intervals: Normal Initial ECG Intervals VT 140 ARS 88 Qtc 450 Initial ECG Impression: Normal Comment no ectopy, no ST segment change Diagnostic Imaging Diagonstic Imaging: Xray Plain Films/CT/US/NM/MRI: chest Comments [facility] [place] [place] NAME: SHADYLYDIA Trevin [facility] REC#: [id number] PT STATUS: REG ER : 1985 PHYSICIAN: JG VILLAVICENCIO MD ADMIT DATE: 06/06/21/ER Signed Date of Exam:06/06/21 CHEST 1 VIEW, AP/PA ONLY INDICATION: Diabetic ketoacidosis Portable chest 9:22 AM Heart size and pulmonary vascularity are normal. Lungs are clear. There are no effusions or pneumothoraces. IMPRESSION: Negative chest. Dictated by: Dictated on workstation # [id number] Dict: 06/06/21916 Trans: 06/06/2133 [facility] [id number] Interpreted by: KYREE GODINEZ MD Electronically signed by: KYREE GODINEZ MD 06/06/21 0933 Critical Care Note Critical Care Start Time: 08:45 Stop Time: 10:21 Total Time (minutes) 45 minutes critical care time in the evaluation and management of this patient with type 1 diabetes presenting with abdominal pain, nausea vomiting. Time includes initial evaluation and management, initiation of fluid resuscitation, insulin, review of laboratory studies, review of the medical records. Serial exams. Discussion with admitting provider. Departure Communication (Admissions) Time/Spoke to Admitting Phy: 10:[address] Pérez Impression Primary Impression: Diabetic ketoacidosis Qualified Codes: E10.10 - Type 1 diabetes mellitus with ketoacidosis without coma Additional Impression: Generalized abdominal pain Disposition: ADMITTED INPATIENT Condition: Stable Admissions Decision to Admit Reason: Admit from ER (General) Decision to Admit/Date: Jun 06, 2021 Time/Decision to Admit Time: 10:21 Departure-Patient Inst. Referrals: [facility] [place] Primary Care Physician JG VILLAVICENCIO MD Jun 06, 2021 08:53
[2021-06-06] MEDS ORDERED: inSUlin (REGULAR) HUMAN 1 UNIT/0.01 ML (CHARGE PER UNIT) IV STA (08:55)
[2021-06-06] MEDS ORDERED: NS IV 1000 ML 1,000 ML IV SCH (09:00)
[2021-06-06] MEDS ORDERED: diphenhydrAMINE 50 MG/ML INJ (BENADRYL) IVP ONE (09:00)
[2021-06-06] MEDS ORDERED: METOCLOPRAMIDE INJ 10 MG/2 ML (REGLAN) IVP ONE (09:00)
[2021-06-06 09:01] LABS: BASOPHILS # (AUTO) 0.1 10^3/uL (0.0-0.1); BASOPHILS % (AUTO) 0 % (0-10); EOSINOPHILS % (AUTO) 0 % (0-10); HEMATOCRIT 42 % (40-54); HEMOGLOBIN 13.6 g/dL (13.3-17.7); LYMPHOCYTES # (AUTO) 1.7 10^3/uL (1.0-4.0); LYMPHOCYTES % (AUTO) 9 % (12-44); MEAN CORPUSCULAR HEMOGLOBIN 30 pg (25-34); MEAN CORPUSCULAR HGB CONC 32 g/dL (32-36); MEAN CORPUSCULAR VOLUME 91 fL (80-99); MEAN PLATELET VOLUME 9.8 fL (9.0-12.2); MONOCYTES # (AUTO) 0.4 10^3/uL (0.0-1.0); MONOCYTES % (AUTO) 2 % (0-12); NEUTROPHILS # (AUTO) 15.9 10^3/uL (1.8-7.8); NEUTROPHILS % (AUTO) 88 % (42-75); PLATELET COUNT 283 10^3/uL (130-400); WHITE BLOOD COUNT 18.1 10^3/uL (4.3-11.0)
[2021-06-06 09:07] LABS: ALBUMIN 3.7 GM/DL (3.2-4.5); POTASSIUM 4.4 MMOL/L (3.6-5.0)
[2021-06-06 09:08] LABS: CALCIUM 8.6 MG/DL (8.5-10.1)
[2021-06-06 09:09] LABS: TOTAL PROTEIN 6.1 GM/DL (6.4-8.2)
[2021-06-06 09:11] LABS: BILIRUBIN,TOTAL 0.8 MG/DL (0.1-1.0)
[2021-06-06 09:13] LABS: CREATININE SERUM 0.95 MG/DL (0.60-1.30)
[2021-06-06 09:18] LABS: ABG BASE EXCESS -17.2 MMOL/L (-2.5-2.5); ABG OXYGEN SATURATION 95 % (94-100); ABG PCO2 22 MMHG (35-45); ABG PO2 117 MMHG (79-93)
--- NOTE | 2021-06-06 09:20 | Diagnostic Imaging Report ---
INDICATION: Diabetic ketoacidosis Portable chest 9:22 AM Heart size and pulmonary vascularity are normal. Lungs are clear. There are no effusions or pneumothoraces. IMPRESSION: Negative chest. Dictated by: Dictated on workstation # [id number]
[2021-06-06 09:24] LABS: ABG PH 7.24 (7.37-7.43); ABG TCO2 9.6 MMOL/L (21.0-31.0); ALLENS TEST YES-POS; INSPIRED O2 ROOM AIR; PATIENT TEMP 36.7; VENTILATOR NO
[2021-06-06 09:39] LABS: BAND NEUTROPHILS 2 %; LYMPHOCYTES % (MANUAL) 11 %; MONOCYTES % (MANUAL) 1 %; NEUTROPHILS % (MANUAL) 86 %; RBC MORPH NORMAL
[2021-06-06] MEDS ORDERED: inSUlin (REGULAR) HUMAN 1 UNIT/0.01 ML (CHARGE PER UNIT) SC SCH (11:00)
[2021-06-06 11:35] LABS: BILIRUBIN,URINE NEGATIVE (NEGATIVE); CLARITY,URINE CLEAR; COLOR,URINE YELLOW; GLUCOSE, URINE (UA) 2+ (NEGATIVE); KETONES,URINE 3+ (NEGATIVE); LEUKOCYTE ESTERASE ,URINE NEGATIVE (NEGATIVE); NITRITE,URINE NEGATIVE (NEGATIVE); PH,URINE 5.5 (5-9); PROTEIN,URINE TRACE (NEGATIVE)
[2021-06-06 11:48] LABS: BACTERIA,URINE TRACE /HPF; WBC,URINE RARE /HPF
[2021-06-06 11:49] LABS: HYALINE CASTS, URINE 0-2 /LPF
[2021-06-06] MEDS ORDERED: 1/2 NS IV SOLUTION 1,000 ML IV ONE (12:05)
--- NOTE | 2021-06-06 12:58 | History & Physical-Hospitalist ---
MANDY MELARA 06/06/21 1258: History of Present Illness HPI/Chief Complaint Stomach Pain The pain began Sunday with associated nausea and vomiting. Because he had little to eat, patient began dry heaving which worsened the pain. He went to the emergency department in [place] on Sunday, where they gave him a bunch of pain medication and sent him home. After being discharged from [place] ED, patient's stepdad brought him straight to the [facility] ED. He then was sent home to [place]. At 3:30 this morning, abdominal pain worsened and he called 911 to have EMS take him to hospital. Pain currently is a 7/10, diffuse, but is worse on the left side close to his stomach. Pt does have history of stomach ulcers which he takes medication for. He denies vomiting any blood, but does report vomit this morning with "little black specks", which he has never noticed before. Pt has been to hospital for similar pain a few other occasions over the past year. He tried getting out of ED bed to use bathroom and "blacked out" which caused his IV to fall out. Review of systems is positive for abdominal pain, shortness of breath, diarrhea, nausea. Source: patient Exam Limitations: no limitations Date Seen 06/06/21 Attending Physician Carrie Pérez MD [facility] [place] Referring Physician Date of Admission Jun 06, 2021 at 10:56 Home Medications & Allergies Home Medications Reviewed patient Home Medication Reconciliation performed by pharmacy medication reconciliations plant maintenance technician and/or nursing. Patients Allergies have been reviewed. Allergies Allergies Coded Allergies tramadol (Verified Adverse Reaction, Mild, N/V, 12/21/14) Past Jwisqtg-Udelbr-Hivopm Hx Patient Social History Employed/Student: unemployed Tobacco Use?: No Use of E-Cig and/or Vaping dev: No Use of E-Cig and/or Vaping Abisai: Never a User Substance use?: Yes Substance type: Marijuana Substance frequency: Daily Alcohol Use?: No Pt feels they are or have been: No Immunizations Up To Date Date of Influenza Vaccine: Apr 13, 2021 First/Initial COVID19 Vaccinat: august 2020 Second COVID19 Vaccination Kumar: SEPTEMBER 2020 Tetanus Booster (TDap): Less Than 5 Years Hepatitis A: No Hepatitis B: No Date of Pneumonia Vaccine: Aug 27, 2011 Seasonal Allergies Seasonal Allergies: No Current Status Advance Directives: No Primary Language: Wolof Preferred Spoken Language: Wolof Sensory deficits: Other Past Medical History Surgeries: Abdominal, Gallbladder COPD Currently Using CPAP: No Currently Using BIPAP: No Hypertension Neuropathy Sexually Transmitted Disease: No HIV/AIDS: No Kidney Infection Gastroesophageal Reflux, Liver Disease/Jaundice, Esophagitis Arthritis, Scoliosis, Chronic Back Pain Diabetes, Insulin dep Hearing Impairment: Denies Depression Blood Disorders: No Adverse Reaction/Blood Tranf: No Past Medical History 1. DM, insulin requiring, not controlled, not compliant 2. Hypertension- was previously prescribed medications but never filled 3. Alcoholism- with previous heavy daily alcohol use- reports stopped drinking 4. 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 Tobaccoism 6. GERD 7. Non-compliance- pt. is chronically non-compliant with his medications and follow up 8. Peipheral Neuropathy Past Surgical History 1. None Family Medical History Alcoholism 19 FATHER G8 BROTHER Congenital heart disease 19 FATHER Family history: Cardiovascular disease 19 FATHER, Onset:40's - 50 Family history: Diabetes mellitus 19 MOTHER Family history: Hypertension 19 FATHER Heart disease 19 FATHER History of - respiratory disease 19 FATHER History of drug abuse 19 MOTHER Hypercholesterolemia 19 FATHER Myocardial infarction 19 FATHER Seizure disorder 19 FATHER No Family History of: Abdominal aortic aneurysm Titus's disease Cancer Congestive heart failure Cystic fibrosis Dementia Dysphagia Family history: Allergy Family history: Alzheimer's disease Family history: Arthritis Family history: Asthma Family history: Breast disease Family history: Coronary thrombosis Family history: Gastrointestinal disease Family history: Glaucoma Family history: Osteoporosis Family history: Thyroid disorder Headache Hearing loss Hereditary disease History of - anemia History of - disorder Human immunodeficiency virus (HIV) seropositivity Infertile Kidney disease Malignant neoplasm of lung Parkinson's disease Prostate cancer Psychotic disorder Stroke Tuberculosis Visual impairment No Pertinent Family Hx Review of Systems Constitutional: see HPI EENTM: see HPI Respiratory: see HPI Cardiovascular: see HPI Gastrointestinal: see HPI Genitourinary: see HPI Physical Exam Physical Exam Vital Signs Vital Signs - First Documented 06/06/21 08:33 Temp 36.7 Pulse 132 Resp 18 B/P (MAP) 137/65 (89) Pulse Ox 100 O2 Delivery Room Air Capillary Refill : Less Than 3 Seconds Height, Weight, BMI Height: 5'10.00" Weight: 240lbs. 0oz. 108.409912tc; 28.02 BMI Method:Stated General Appearance: Mild Distress Neck: Normal Inspection Respiratory: Chest Non Tender, Lungs Clear, Normal Breath Sounds Cardiovascular: Regular Rate, Rhythm, No Edema, No Murmur Gastrointestinal: Soft, Abnormal Bowel Sounds, Guarding, Tenderness Extremity: No Calf Tenderness, No Pedal Edema Neurologic/Psychiatric: Alert, Oriented x3 Skin: Normal Color, Warm/Dry Results Results/Procedures Labs Laboratory Tests 06/06/21 08:47 06/06/21 12:40 06/06/21 15:20 Patient resulted labs reviewed. Imaging: Reviewed Imaging Films, Reviewed Imaging Report Imaging Chest radiograph Meds Insulin gtt Q24h. Given 2 bags of NS and one time dose of metoclopramide, diph enhydramine. Assessment/Plan Admission Diagnosis DKA Admission Status: Inpatient Order (span 2 midnights) Reason for Inpatient Admission: Rule out other etiologies of abdominal pain, diabetes management. Assessment and Plan Mr. Alvaro Ford is a 35 year old male with PMH of Insulin-dependent diabetes mellitus hypertension, GERD, neuropathy presenting to ED with acute abdominal pain and associated nausea. Diabetic Ketoacidosis, High anion gap metabolic acidosis, insulin-dependent diabetes mellitus * Blood glucose 378 on admission * Elevated beta-hydroxybutyrate * Urine positive for ketones and glucose * AG 22, pH 7.24, HCO3 9 > Plan: Continue IV insulin, start IV potassium supplementation, IV fluids, follow CMP q2-4h. Keep NPO. Hypertension > Hold OP medications GERD > Hold OP medications Neuropathy * bilateral low extremity neuropathy. Pt reports due to diabetes. > Hold OP medications Nausea > PRN zofran Shortness of air > PRN albuterol sulfate DVT prophylaxis > lovenox Diagnosis/Problems Diagnosis/Problems (1) Diabetic ketoacidosis Onset Date: ~ 06/04/2021 Status: Acute Assessment & Plan: Plan: Keep on insulin drip. NPO. Start IV potassium supplementation and normal saline. Monitor potassium every 2-4 hours. Qualifiers: Diabetes mellitus type: type 1 Diabetes mellitus complication detail: without coma Qualified Codes: E10.10 - Type 1 diabetes mellitus with ketoacidosis without coma (2) Diabetes mellitus, insulin dependent (IDDM), uncontrolled Onset Date: ~ 06/04/2007 Status: Chronic Assessment & Plan: Plan: Keep on insulin drip until anion gap normalizes and patient can eat. (3) Abdominal pain Onset Date: ~ 06/04/2021 Status: Acute Assessment & Plan: Plan: PRN fentanyl citrate Qualifiers: Abdominal location: generalized Qualified Codes: R10.84 - Generalized abdominal pain (4) GERD (gastroesophageal reflux disease) Onset Date: Unknown Status: Acute Assessment & Plan: Plan: IV protonix. Zofran prn for nausea Qualifiers: Esophagitis presence: with esophagitis Esophagitis bleeding: without hemorrhage Qualified Codes: K21.00 - Gastro-esophageal reflux disease with esophagitis, without bleeding (5) Diabetic peripheral neuropathy Onset Date: Unknown Status: Chronic Assessment & Plan: Plan: Hold OP gabapentin (6) Shortness of breath Onset Date: ~ 06/05/2021 Status: Acute Assessment & Plan: Plan: PRN albuterol sulfate CARRIE PÉREZ MD 06/06/21 1911: History of Present Illness Time Seen by a Provider: 16:30 Past Crtwjnz-Cixgcq-Edkgbj Hx Family Medical History Alcoholism 19 FATHER G8 BROTHER Congenital heart disease 19 FATHER Family history: Cardiovascular disease 19 FATHER, Onset:40's - 50 Family history: Diabetes mellitus 19 MOTHER Family history: Hypertension 19 FATHER Heart disease 19 FATHER History of - respiratory disease 19 FATHER History of drug abuse 19 MOTHER Hypercholesterolemia 19 FATHER Myocardial infarction 19 FATHER Seizure disorder 19 FATHER No Family History of: Abdominal aortic aneurysm Titus's disease Cancer Congestive heart failure Cystic fibrosis Dementia Dysphagia Family history: Allergy Family history: Alzheimer's disease Family history: Arthritis Family history: Asthma Family history: Breast disease Family history: Coronary thrombosis Family history: Gastrointestinal disease Family history: Glaucoma Family history: Osteoporosis Family history: Thyroid disorder Headache Hearing loss Hereditary disease History of - anemia History of - disorder Human immunodeficiency virus (HIV) seropositivity Infertile Kidney disease Malignant neoplasm of lung Parkinson's disease Prostate cancer Psychotic disorder Stroke Tuberculosis Visual impairment Supervisory-Addendum Brief Verification & Attestation Participated in pt care: history, MDM, physical Personally performed: exam, history Care discussed with: Medical Student Procedures: n/a Verification and Attestation of Medical Student E/M Service I reviewed and verified all information documented by the medical student and made modifications to such information, when appropriate. I personally performed the physical exam and medical decision making. Carrie Pérez, Jun 06, 2021,19:10 MANDY MELARA Jun 06, 2021 12:58 CARRIE PÉREZ MD Jun 06, 2021 19:11
[2021-06-06 13:09] LABS: CALCIUM 8.1 MG/DL (8.5-10.1); CREATININE SERUM 0.89 MG/DL (0.60-1.30)
[2021-06-06] MEDS ORDERED: 1/2 NS IV SOLUTION 1,000 ML IV SCH (13:30)
[2021-06-06] MEDS ORDERED: D5 1/2 NS 1000 ML IV SOLUTION 1,000 ML IV SCH (13:30)
[2021-06-06] MEDS ORDERED: D5 1/2 NS 1000 ML IV SOLUTION 1,000 ML IV ONE ×3 (13:37→22:21)
--- NOTE | 2021-06-06 15:17 | Tele-ICU Consult ---
History of Present Illness History of Present Illness Date Seen by Provider: Jun 06, 2021 Time Seen by Provider: 15:17 Date of Admission 06/06/21 History of Present Illness He presented to the emergency room with a complaint of abdominal pain which has been getting worse associated with the nausea vomiting. Apparently he has a hypertension and noncompliance with medications and diet regarding his diabetes. Reportedly he was at [facility] yesterday and received multiple medications and checked out. In this hospital he is found to have diabetic ketoacidosis hence he is admitted for further evaluation and management no chest pain. No fever present. Video visit made and discussed with the patient and also discussed with the CREDIT PORTFOLIO MANAGER. Reportedly had a Covid vaccination. Allergies and Home Medications Allergies Coded Allergies: tramadol (Verified Adverse Reaction, Mild, N/V, 12/21/14) Home Medications Acetaminophen/Diphenhydramine 1 Each Tablet, 1 EACH PO HS PRN for SLEEP, (Rep orted) Gabapentin 800 Mg Tablet, 800 MG PO TID, (Reported) Insulin Aspart 100 Unit/1 Ml Insuln.pen, 5 UNIT SQ AC Prescribed by: CARLOS MCLEAN on 05/03/21 153 Insulin Detemir 100 Unit/1 Ml Insuln.pen, 45 UNIT SQ HS Prescribed by: CARLOS MCLEAN on 05/03/21 153 Lisinopril 10 Mg Tablet, 10 MG PO DAILY Prescribed by: CARLOS MCLEAN on 05/03/21 153 Ondansetron 8 Mg Tab.rapdis, 8 MG PO Q6H Prescribed by: CARLOS MCLEAN on 05/03/21 1536 Ondansetron 4 Mg Tab.rapdis, 8 MG PO Q8H PRN for NAUSEA/VOMITING Prescribed by: JG VILLAVICENCIO on 06/05/21 1032 Pantoprazole Sodium 40 Mg Tablet.dr, 40 MG PO DAILY Prescribed by: CARLOS MCLEAN on 05/03/21 153 Sucralfate 1 Gm Tablet, 1 GM PO ACHS Prescribed by: CARLOS MCLEAN on 05/03/21 153 Past Medical/Social/Family Hx Patient Social History Employed/Student: unemployed Tobacco Use?: No Use of E-Cig and/or Vaping dev: No E-Cig and/or Vaping Freq: Never a User Substance use?: Yes Substance type: Marijuana Substance frequency: Daily Alcohol Use?: No Pt stated abuse/neglect: No Immunizations Up To Date Influenza Vaccine Up-to-Date: Yes; Up-to-Date First/Initial COVID19 Vaccinat: august 2020 Second COVID19 Vaccination Kumar: SEPTEMBER 2020 Tetanus Booster (TDap): Less Than 5 Years Hepatitis A: No Hepatitis B: No TB Skin Test: None Date of Pneumonia Vaccine: Aug 27, 2011 Current Status Advance Directives: No Primary Language: Ukrainian Preferred Spoken Language: Ukrainian Sensory deficits: Other Past Medical History Past Medical History 1. DM, insulin requiring, not controlled, not compliant 2. Hypertension- was previously prescribed medications but never filled 3. Alcoholism- with previous heavy daily alcohol use- reports stopped drinking 4. 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 Tobaccoism 6. GERD 7. Non-compliance- pt. is chronically non-compliant with his medications and follow up 8. Peipheral Neuropathy Past Surgical History 1. None Review of Systems Constitutional: see HPI EENTM: see HPI Other ros per rn Focused Exam Height, Weight, BMI Height: 5'10.00" Weight: 240lbs. 0oz. 108.824646ew; 28.02 BMI Method:Stated Exam Exam Patient acknowledged, consented, and participated in this virtual visit which was conducted using real time audio/video Vital Signs Date Time Temp Pulse Resp B/P (MAP) Pulse Ox O2 Delivery O2 Flow Rate FiO2 06/06/21 12:00 Room Air 06/06/21 12:00 107 10 124/65 98 06/06/21 11:27 100 18 137/98 98 Room Air 06/06/21 08:33 36.7 132 18 137/65 (89) 100 Room Air Height & Weight Height: 5'10.00" Weight: 240lbs. 0oz. 108.337844sn; 28.02 BMI Method:Stated General Appearance: Mild Distress Neck: Normal Inspection Respiratory: Chest Non Tender, Lungs Clear, Normal Breath Sounds Cardiovascular: Regular Rate, Rhythm, No Edema, No Murmur Capillary Refill: Less Than 3 Seconds Gastrointestinal: soft, other (tenderness to just shaking the skin of his anterior abdominal wall; with deeper palpation, same pain elicited. no rebound. has voluntary guarding; hypoactive BS) Extremity: No Calf Tenderness, No Pedal Edema Neurologic/Psychiatric: Alert, Oriented x3 Skin: Normal Color, Warm/Dry Other comments PE PER RN Results Lab Laboratory Tests 06/06/21 08:47 06/06/21 12:40 Assessment/Plan Assessment/Plan 1. Diabetic ketoacidosis secondary to noncompliance. 2. Hypertension currently stable 3. History of GERD 4. History of peripheral neuropathy 5. History of illicit drug abuse as well as a alcohol and tobacco abuse. Recommendations 1. Hydrate patient with normal saline 2. Insulin drip per protocol 3. Monitor electrolytes frequently 4. GI prophylaxis with Protonix IV. 5. DVT prophylaxis with Lovenox and SCDs. Is lipase has been normal Critical Care: Critically Ill Patient Time spent with patient (mins): 25 GUDELIA VARGAS MD Jun 06, 2021 15:17
[2021-06-06 15:54] LABS: CALCIUM 7.8 MG/DL (8.5-10.1)
[2021-06-06 15:59] LABS: CREATININE SERUM 0.76 MG/DL (0.60-1.30)
[2021-06-06] MEDS: POTASSIUM CL 10MEQ/50ML IVPB 50 ML IV SCH ×4 (16:05→22:23)
[2021-06-06 16:14] VITALS: BP 113/69
[2021-06-06] MEDS ORDERED: RT-ALBUTEROL SULF 2.5 MG/3 ML PRE-MIX VIAL INH PRN (16:30)
[2021-06-06] MEDS: NS IV 1000 ML 1,000 ML IV SCH ×2 (17:27→20:25)
[2021-06-06] MEDS: ONDANSETRON 4 MG/2 ML (SDV) Z0FRAN IVP PRN ×2 (17:43→22:08)
[2021-06-06] MEDS: ENOXAPARIN 40 MG/0.4 ML (LOVENOX) SYR SC SCH (17:43)
[2021-06-06] MEDS: PANTOPRAZOLE 40 MG (PROTONIX) VIAL IV SCH (17:44)
[2021-06-06] MEDS: fentaNYL INJ 100 MCG/2 ML AMP IVP PRN (20:03)
[2021-06-06 21:09] LABS: CREATININE SERUM 0.82 MG/DL (0.60-1.30); POTASSIUM 3.8 MMOL/L (3.6-5.0)
[2021-06-06] MEDS: D5 1/2 NS 1000 ML IV SOLUTION 1,000 ML IV SCH (22:30)
[2021-06-07] MEDS: POTASSIUM CL 10MEQ/50ML IVPB 50 ML IV SCH ×4 (00:15→06:16)
[2021-06-07] MEDS: fentaNYL INJ 100 MCG/2 ML AMP IVP PRN ×7 (00:19→21:50)
[2021-06-07 00:53] LABS: POTASSIUM 3.8 MMOL/L (3.6-5.0)
[2021-06-07 00:54] LABS: CALCIUM 7.8 MG/DL (8.5-10.1)
[2021-06-07 00:58] LABS: CREATININE SERUM 0.8 MG/DL (0.60-1.30)
[2021-06-07] MEDS: D5 1/2 NS 1000 ML IV SOLUTION 1,000 ML IV SCH ×2 (02:33→06:16)
[2021-06-07] MEDS: NS IV 1000 ML 1,000 ML IV SCH ×2 (03:05→14:52)
[2021-06-07 04:38] LABS: LYMPHOCYTES % (AUTO) 30 % (12-44); MONOCYTES % (AUTO) 6 % (0-12)
[2021-06-07 04:40] LABS: BASOPHILS # (AUTO) 0.1 10^3/uL (0.0-0.1); BASOPHILS % (AUTO) 1 % (0-10); EOSINOPHILS # (AUTO) 0.2 10^3/uL (0.0-0.3); EOSINOPHILS % (AUTO) 2 % (0-10); HEMATOCRIT 38 % (40-54); HEMOGLOBIN 12.4 g/dL (13.3-17.7); LYMPHOCYTES # (AUTO) 2.7 10^3/uL (1.0-4.0); MEAN CORPUSCULAR HEMOGLOBIN 29 pg (25-34); MEAN CORPUSCULAR HGB CONC 33 g/dL (32-36); MEAN CORPUSCULAR VOLUME 89 fL (80-99); MEAN PLATELET VOLUME 9.3 fL (9.0-12.2); MONOCYTES # (AUTO) 0.5 10^3/uL (0.0-1.0); NEUTROPHILS # (AUTO) 5.4 10^3/uL (1.8-7.8); NEUTROPHILS % (AUTO) 61 % (42-75); PLATELET COUNT 189 10^3/uL (130-400); WHITE BLOOD COUNT 8.8 10^3/uL (4.3-11.0)
[2021-06-07 04:57] LABS: ALBUMIN 2.7 GM/DL (3.2-4.5)
[2021-06-07 04:58] LABS: CALCIUM 7.6 MG/DL (8.5-10.1)
[2021-06-07 05:00] LABS: TOTAL PROTEIN 5.1 GM/DL (6.4-8.2)
[2021-06-07 05:01] LABS: BILIRUBIN,TOTAL 0.6 MG/DL (0.1-1.0)
[2021-06-07 05:03] LABS: CREATININE SERUM 0.95 MG/DL (0.60-1.30); PHOSPHORUS 2.7 MG/DL (2.3-4.7)
[2021-06-07 05:06] LABS: MAGNESIUM 1.4 MG/DL (1.6-2.4)
[2021-06-07] MEDS: PANTOPRAZOLE 40 MG (PROTONIX) VIAL IV SCH (08:28)
--- NOTE | 2021-06-07 08:31 | Tele-ICU Progress Note ---
Subjective Date Seen by a Provider: Jun 07, 2021 Time Seen by a Provider: 08:31 Subjective/Events-last exam Patient today is much more alert and complains that he has a abdominal pain but nausea is gone. He has body aches which are improved also. He wants to eat solid food. His anion gap closed now at 8. I have decreased his IV fluids and will discontinue his insulin drip and start on a Levemir insulin followed by sl iding scale coverage with insulin. Video visit made and discussed with the patient as well as the BONDERIZER. Review of Systems ros per rn. Sepsis Event Evaluation Height, Weight, BMI Height: 5'10.00" Weight: 240lbs. 0oz. 108.773275bc; 28.02 BMI Method:Stated Exam Exam Patient acknowledged, consented, and participated in this virtual visit which was conducted using real time audio/video Vital Signs Date Time Temp Pulse Resp B/P (MAP) Pulse Ox O2 Delivery O2 Flow Rate FiO2 06/07/21 07:20 37.0 06/07/21 06:00 82 18 112/81 98 Room Air 06/07/21 05:00 81 19 113/76 98 Room Air 06/07/21 04:00 82 17 115/77 97 Room Air 06/07/21 04:00 Room Air 06/07/21 04:00 36.3 Room Air 06/07/21 03:00 84 9 127/81 98 Room Air 06/07/21 02:00 79 17 111/73 98 Room Air 06/07/21 01:00 82 21 106/71 98 Room Air 06/07/21 01:00 82 06/07/21 00:00 36.6 06/07/21 00:00 84 19 109/62 98 Room Air 06/06/21 23:29 Room Air 06/06/21 23:00 84 12 105/65 99 Room Air 06/06/21 22:00 88 23 109/64 98 Room Air 06/06/21 21:00 95 16 106/61 99 Room Air 06/06/21 20:00 95 20 113/69 99 Room Air 06/06/21 20:00 Room Air 06/06/21 19:44 36.5 06/06/21 19:00 95 06/06/21 19:00 95 10 119/71 100 Room Air 06/06/21 18:00 92 16 97/53 98 06/06/21 17:00 95 115/71 06/06/21 17:00 95 115/71 Room Air 06/06/21 16:14 37.6 101 97 06/06/21 16:00 Room Air 06/06/21 16:00 37.6 06/06/21 16:00 100 18 99 Room Air 06/06/21 16:00 100 18 99 06/06/21 15:00 101 22 113/69 97 06/06/21 15:00 105 20 113/69 99 Room Air 06/06/21 14:00 103 22 120/70 97 06/06/21 14:00 108 120/70 99 Room Air 06/06/21 13:00 108 19 124/70 99 Room Air 06/06/21 13:00 108 19 124/70 100 06/06/21 13:00 109 06/06/21 12:00 Room Air 06/06/21 12:00 107 10 124/65 98 Room Air 06/06/21 11:58 110 06/06/21 11:27 100 18 137/98 98 Room Air 06/06/21 08:33 36.7 132 18 137/65 (89) 100 Room Air I & O 06/07/21 07:00 Intake Total 5850 ml Output Total 1050 ml Balance 4800 ml Height & Weight Height: 5'10.00" Weight: 240lbs. 0oz. 108.253260iv; 28.02 BMI Method:Stated General Appearance: Mild Distress Neck: Normal Inspection Respiratory: Chest Non Tender, Lungs Clear, Normal Breath Sounds Cardiovascular: Regular Rate, Rhythm, No Edema, No Murmur Capillary Refill: Less Than 3 Seconds Gastrointestinal: soft, other (tenderness to just shaking the skin of his anterior abdominal wall; with deeper palpation, same pain elicited. no rebound. has voluntary guarding; hypoactive BS) Extremity: No Calf Tenderness, No Pedal Edema Neurologic/Psychiatric: Alert, Oriented x3 Skin: Normal Color, Warm/Dry Other comments PE PER RN Results Lab Laboratory Tests 06/06/21 08:47 06/06/21 12:40 06/06/21 15:20 06/06/21 20:24 06/07/21 00:20 06/07/21 04:15 Assessment/Plan Assessment/Plan 1. Diabetic ketoacidosis secondary to noncompliance now imroving 2. Hypertension currently stable 3. History of GERD 4. History of peripheral neuropathy 5. History of illicit drug abuse as well as a alcohol and tobacco abuse. Recommendations 1. will decrease ivf. 2. stop insulin drip and start levmir insulin and ss coverage. 3. Advance diet to solid diet 1800 k kwabena ADA 4. GI prophylaxis with Protonix IV. 5. DVT prophylaxis with Lovenox and SCDs. 6. once insulin drip discontinued he may be transferred to medical floor Critical Care: Critically Ill Patient Time spent with patient (mins): 25 GUDELIA VARGAS MD Jun 07, 2021 08:31
[2021-06-07] MEDS ORDERED: MAGNESIUM 4 GM/100 ML IVPB 100 ML IV ONE (08:45)
[2021-06-07] MEDS ORDERED: MAGNESIUM 1 GM/100 ML IVPB 100 ML IV NR (09:00)
[2021-06-07 09:14] LABS: CALCIUM 8.1 MG/DL (8.5-10.1); CREATININE SERUM 0.8 MG/DL (0.60-1.30); POTASSIUM 3.6 MMOL/L (3.6-5.0)
[2021-06-07] MEDS ORDERED: INSU100I14 SQ ×2 (09:35)
[2021-06-07] MEDS ORDERED: LISI10TA25 PO ×2 (09:35)
[2021-06-07] MEDS ORDERED: PANT40TA52 PO ×2 (09:35)
[2021-06-07] MEDS ORDERED: SUCR1TAB36 PO ×2 (09:35)
[2021-06-07] MEDS ORDERED: INSU100I29 SQ ×2 (09:35)
--- NOTE | 2021-06-07 10:17 | Progress Note - Hospitalist ---
MANDY MELARA Esteban 06/07/21 1016: Subjective HPI/CC On Admission Date Seen by Provider: Jun 07, 2021 Time Seen by Provider: 10:00 Stomach Pain The pain began Sunday with associated nausea and vomiting. Because he had little to eat, patient began dry heaving which worsened the pain. He went to the emergency department in [place] on Sunday, where they gave him a bunch of pain medication and sent him home. After being discharged from [place] ED, patient's stepdad brought him straight to the [facility] ED. He then was sent home to [place]. At 3:30 this morning, abdominal pain worsened and he called 911 to have EMS take him to hospital. Pain currently is a 7/10, diffuse, but is worse on the left side close to his stomach. Pt does have history of stomach ulcers which he takes medication for. He denies vomiting any blood, but does report vomit this morning with "little black specks", which he has never noticed befor e. Pt has been to hospital for similar pain a few other occasions over the past year. He tried getting out of ED bed to use bathroom and "blacked out" which caused his IV to fall out. Review of systems is positive for abdominal pain, shortness of breath, diarrhea, nausea. Subjective/Events-last exam This morning, patient was seen in bed as he was watching netflix on his phone. He reports his muscle pain and nausea are gone. Pt is still having "stomach pain." Pain is at an 8/10. He feels it may be the result from profusely vomiting and dry heaving. Most recent bowel movement was this morning, he thought it appeared red so he told nurse and they sent it for evaluation of blood. On clear liquid diet and had been tolerating it well. Most recent intake was this morning. He looks forward to eating solid food. Yesterday, he had dispute with dad who had been frequently calling up to the hospital. Pt's father is upset he is receiving narcotics for pain management. Review of Systems Gastrointestinal: Abdominal Pain, Diarrhea; No: Nausea, Vomiting Musculoskeletal: No: other, neck pain, shoulder pain, arm pain, back pain, hand pain, leg pain, foot pain Objective Exam Vital Signs Vital Signs Date Time Temp Pulse Resp B/P (MAP) Pulse Ox O2 Delivery O2 Flow Rate FiO2 06/07/21 16:09 81 7 99 Room Air 06/07/21 16:01 36.8 Capillary Refill : Less Than 3 Seconds General Appearance: No Apparent Distress Respiratory: No Accessory Muscle Use, No Respiratory Distress Cardiovascular: Regular Rate, Rhythm, No Edema Gastrointestinal: Guarding, Tenderness Neurologic/Psychiatric: Normal Mood/Affect Skin: Normal Color, Warm/Dry, Tattoos/Piercings Results/Procedures Lab Laboratory Tests 06/06/21 20:24 06/07/21 00:20 06/07/21 04:15 06/07/21 08:33 Patient resulted labs reviewed. Imaging: Reviewed Imaging Films, Reviewed Imaging Report Assessment/Plan Assessment and Plan Assess & Plan/Chief Complaint Mr. Alvaro Ford is a 35 year old male with PMH of Insulin-dependent diabetes mellitus hypertension, GERD, neuropathy presenting to ED with acute abdominal pain and associated nausea. Plan to discharge to home if able to tolerate food and pain is managed. Diabetic Ketoacidosis, High anion gap metabolic acidosis, insulin-dependent diabetes mellitus, abdominal pain * Blood glucose 378 on admission * Elevated beta-hydroxybutyrate * Urine positive for ketones and glucose * AG 22, pH 7.24, HCO3 9 * Takes 30-40 units of long-acting insulin at home > Plan: Start basal-bolus insulin, start solid food diet. Continue fentanyl prn for pain. Monitor with daily CMPs. Hypertension > Hold OP medications GERD, GI prophylaxis > continue IV protonix Neuropathy * bilateral low extremity neuropathy. Pt reports due to diabetes. > Hold OP medications Nausea > PRN zofran Shortness of air > PRN albuterol sulfate DVT prophylaxis > lovenox Time spent with patient (mins): 10 minutes Diagnosis/Problems Diagnosis/Problems (1) Diabetic ketoacidosis Onset Date: ~ 06/04/2021 Status: Acute Assessment & Plan: > Plan: Start basal-bolus insulin, start solid food diet. Continue fentanyl prn for pain. Monitor with daily CMPs. Qualifiers: Qualified Codes: E10.10 - Type 1 diabetes mellitus with ketoacidosis without coma (2) Diabetes mellitus, insulin dependent (IDDM), uncontrolled Onset Date: ~ 06/04/2007 Status: Chronic Assessment & Plan: Plan: Continue on 10 units detemir daily and sliding scale aspart with meals. (3) Abdominal pain Onset Date: ~ 06/04/2021 Status: Acute Assessment & Plan: Plan: PRN fentanyl citrate Qualifiers: Qualified Codes: R10.84 - Generalized abdominal pain (4) GERD (gastroesophageal reflux disease) Onset Date: Unknown Status: Acute Assessment & Plan: Plan: IV protonix. Zofran prn for nausea Qualifiers: Qualified Codes: K21.00 - Gastro-esophageal reflux disease with esophagitis, without bleeding (5) Diabetic peripheral neuropathy Onset Date: Unknown Status: Chronic Assessment & Plan: Plan: Hold OP gabapentin (6) Shortness of breath Onset Date: ~ 06/05/2021 Status: Acute Assessment & Plan: Plan: PRN albuterol sulfate NIGHAT PÉREZ MD 06/07/21 2014: Supervisory-Addendum Brief Verification & Attestation Participated in pt care: history, MDM, physical Personally performed: exam, history, MDM Care discussed with: Medical Student Procedures: n/a Verification and Attestation of Medical Student E/M Service I reviewed and verified all information documented by the medical student and made modifications to such information, when appropriate. I personally performed the physical exam and medical decision making. Nighat Pérez, Jun 07, 2021,20:13 MANDY MELARA Jun 07, 2021 10:16 NIGHAT PÉREZ MD Jun 07, 2021 20:14
[2021-06-07] MEDS: inSUlin ASPART (NovoLOG) 1 UNIT/0.01 ML (CHARGE PER UNIT) SC SCH ×3 (14:52→21:50)
[2021-06-07] MEDS: ENOXAPARIN 40 MG/0.4 ML (LOVENOX) SYR SC SCH (17:37)
[2021-06-08] MEDS: fentaNYL INJ 100 MCG/2 ML AMP IVP PRN ×3 (03:56→11:14)
[2021-06-08] MEDS: ONDANSETRON 4 MG/2 ML (SDV) Z0FRAN IVP PRN (03:59)
[2021-06-08] MEDS: inSUlin ASPART (NovoLOG) 1 UNIT/0.01 ML (CHARGE PER UNIT) SC SCH ×2 (05:22→11:09)
[2021-06-08 05:41] LABS: BASOPHILS % (AUTO) 1 % (0-10); EOSINOPHILS # (AUTO) 0.1 10^3/uL (0.0-0.3); EOSINOPHILS % (AUTO) 2 % (0-10); HEMATOCRIT 33 % (40-54); HEMOGLOBIN 11.4 g/dL (13.3-17.7); LYMPHOCYTES # (AUTO) 2.1 10^3/uL (1.0-4.0); LYMPHOCYTES % (AUTO) 40 % (12-44); MEAN CORPUSCULAR HEMOGLOBIN 29 pg (25-34); MEAN CORPUSCULAR HGB CONC 34 g/dL (32-36); MEAN CORPUSCULAR VOLUME 85 fL (80-99); MEAN PLATELET VOLUME 9.1 fL (9.0-12.2); MONOCYTES # (AUTO) 0.4 10^3/uL (0.0-1.0); MONOCYTES % (AUTO) 7 % (0-12); NEUTROPHILS # (AUTO) 2.6 10^3/uL (1.8-7.8); NEUTROPHILS % (AUTO) 50 % (42-75); PLATELET COUNT 170 10^3/uL (130-400); WHITE BLOOD COUNT 5.2 10^3/uL (4.3-11.0)
[2021-06-08 05:48] LABS: ALBUMIN 2.8 GM/DL (3.2-4.5); POTASSIUM 3.3 MMOL/L (3.6-5.0)
[2021-06-08 05:49] LABS: CALCIUM 7.8 MG/DL (8.5-10.1)
[2021-06-08 05:51] LABS: TOTAL PROTEIN 4.6 GM/DL (6.4-8.2)
[2021-06-08 05:52] LABS: BILIRUBIN,TOTAL 0.5 MG/DL (0.1-1.0)
[2021-06-08 05:54] LABS: CREATININE SERUM 0.64 MG/DL (0.60-1.30)
[2021-06-08 05:57] LABS: MAGNESIUM 1.4 MG/DL (1.6-2.4)
[2021-06-08] MEDS ORDERED: KCL 20 MEQ TAB (K-DUR) PO NR (07:58)
[2021-06-08] MEDS: PANTOPRAZOLE 40 MG (PROTONIX) VIAL IV SCH (08:25)
--- NOTE | 2021-06-08 13:16 | Discharge Summary ---
CHALO MELARA 06/08/21 1316: Diagnosis/Chief Complaint Date of Admission Jun 06, 2021 at 10:56 Date of Discharge Discharge Date: Jun 08, 2021 Admission Diagnosis D[facility] Discharge Diagnosis Insulin-dependent diabetes (1) Diabetic ketoacidosis Onset Date: ~ 06/04/2021 Status: Resolved Assessment & Plan: Seek medical attention if symptoms of DKA recur in the future. 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 Follow up with PCP for diabetes management. (3) Abdominal pain Onset Date: ~ 06/04/2021 Status: Chronic Assessment & Plan: OTC NSAIDs and/or pain relievers for pain management. (4) GERD (gastroesophageal reflux disease) Onset Date: Unknown Status: Chronic Assessment & Plan: ship's captain protonix, carafate. (5) Diabetic peripheral neuropathy Onset Date: Unknown Status: Chronic Assessment & Plan: Fish Checker gabapentin (6) Hypertension Onset Date: Unknown Status: Chronic Assessment & Plan: Restart AUTO BODY MAN lisinopril (7) Shortness of breath Onset Date: ~ 06/05/2021 Status: Resolved Assessment & Plan: Discontinue IP albuterol. Discharge Summary Discharge Physical Exam Allergies: Coded Allergies: tramadol (Verified Adverse Reaction, Mild, N/V, 12/21/14) Vitals & I&Os Vital Signs Date Time Temp Pulse Resp B/P (MAP) Pulse Ox O2 Delivery O2 Flow Rate FiO2 06/08/21 13:00 06/08/21 11:33 36.6 58 20 98 Room Air General Appearance: No Apparent Distress Respiratory: Lungs Clear, Normal Breath Sounds, No Accessory Muscle Use, No Respiratory Distress Cardiovascular: Regular Rate, Rhythm, No Edema, No Murmur Gastrointestinal: Normal Bowel Sounds, Soft; No Distended; Tenderness Extremity: No Pedal Edema Skin: Normal Color, Warm/Dry Neurologic/Psychiatric: Alert, Normal Mood/Affect Hospital Course Was the Problem List Reviewed?: Yes Mr. Alvaro Ford is a 35 year old gentleman with a PMH of IDDM, HTN, GERD that presented to the ED after two days of worsening abdominal pain, nausea, and vomiting. Upon workup in the ED, it was discovered that he had diabetic ketoacidosis. There he received IV insulin, IV fluids, pain and nausea management before being admitted to the ICU. After one day in the ICU, blood sugars had normalized and acidosis had corrected so he was transferred to to bed on general floor. Pain and nausea continued to improve. Electrolytes were replaced and pain controlled as needed. Patient was discharged to home on ship's captain medications without any changes. Labs (last 24 hrs) Laboratory Tests 06/07/21 16:12: Glucometer 187H 06/07/21 20:00: Glucometer 254H 06/08/21 05:10: White Blood Count 5.2, Red Blood Count 3.95L, Hemoglobin 11.4L, Hematocrit 33L, Mean Corpuscular Volume 85, Mean Corpuscular Hemoglobin 29, Mean Corpuscular Hemoglobin Concent 34, Red Cell Distribution Width 11.9, Platelet Count 170, Mean Platelet Volume 9.1, Immature Granulocyte % (Auto) 0, Neutrophils (%) (Auto) 50, Lymphocytes (%) (Auto) 40, Monocytes (%) (Auto) 7, Eosinophils (%) (Auto) 2, Basophils (%) (Auto) 1, Neutrophils # (Auto) 2.6, Lymphocytes # (Auto) 2.1, Monocytes # (Auto) 0.4, Eosinophils # (Auto) 0.1, Basophils # (Auto) 0.0, Immature Granulocyte # (Auto) 0.0, Sodium Level 140, Potassium Level 3.3L, Chloride Level 110H, Carbon Dioxide Level 23, Anion Gap 7, Blood Urea Nitrogen 9, Creatinine 0.64, Estimat Glomerular Filtration Rate 144, BUN/Creatinine Ratio 14, Glucose Level 69L, Calcium Level 7.8L, Corrected Calcium 8.8, Magnesium Level 1.4L, Total Bilirubin 0.5, Aspartate Amino Transf (AST/SGOT) 46H, Alanine Aminotransferase (ALT/SGPT) 48, Alkaline Phosphatase 55, Total Protein 4.6L, Albumin 2.8L 06/08/21 05:11: Glucometer 96 06/08/21 10:36: Glucometer 371H Microbiology 06/06/21 MRSA Screen - Final, Complete MRSA not isolated Patient resulted labs reviewed. Pending Labs Laboratory Tests 06/08/21 10:36: Glucometer 371 Radiology Reviewed Chest x-ray Imaging: Reviewed Imaging Films, Reviewed Imaging Report Discussion & Recommendations Discharge Planning: <30 minutes discharge planning Discussed discharge and care plan. Patient requested one or two days of pain medication that the received in hospital. Explained that the best thing for him at this time would be rest at home. Discharge Home Medications: Active Scripts Active Reported Pantoprazole Sodium 40 Mg Tablet.dr 40 Mg PO DAILY Carafate (Sucralfate) 1 Gm Tablet 1 Gm PO ACHS Lisinopril 10 Mg Tablet 10 Mg PO DAILY Novolog Flexpen (Insulin Aspart) 300 Units/3 Ml Solution 5 Units SQ AC Levemir Flextouch (Insulin Detemir) 100 Unit/1 Ml Insuln.pen 35-40 Unit SQ HS Tylenol Pm Ex-Strength Caplet (Acetaminophen/Diphenhydramine) 1 Each Tablet 1 Each PO HS PRN Gabapentin 800 Mg Tablet 800 Mg PO TID Condition at discharge Stable Instructions to patient/family Please see electronic discharge instructions given to patient. CARRIE NELSON MD 06/08/21 1546: Discharge Summary Discharge Physical Exam Allergies: Coded Allergies: tramadol (Verified Adverse Reaction, Mild, N/V, 12/21/14) Supervisory-Addendum Brief Verification & Attestation Participated in pt care: history Personally performed: exam Care discussed with: Medical Student Procedures: n/a I personally saw and examined patient today and directed the plan of care as documented by MS3 Chalo Melara. Problem Qualifiers (1) Diabetic ketoacidosis: Diabetes mellitus type: type 1 Diabetes mellitus complication detail: without coma Qualified Codes: E10.10 - Type 1 diabetes mellitus with ketoacidosis without coma (2) Abdominal pain: Abdominal location: left upper quadrant Qualified Codes: R10.12 - Left upper quadrant pain (3) GERD (gastroesophageal reflux disease): Esophagitis presence: with esophagitis Esophagitis bleeding: without hemorrhage Qualified Codes: K21.00 - Gastro-esophageal reflux disease with esophagitis, without bleeding (4) Hypertension: Hypertension type: primary hypertension Qualified Codes: I10 - Essential (primary) hypertension CHALO MELARA Jun 08, 2021 13:16 CARRIE NELSON MD Jun 08, 2021 15:46
== END 2021-06-08 13:00 | disposition home or self-care (01) | DRG 639 ==
LOC: EDUNIT# 08:28 → ER 08:34 → ICU 10:56 → 4TH 06-07 17:40
PROVIDERS: ADMIT Family Medicine; ATTEND Family Medicine
DX: E10.10 Type 1 diabetes mellitus with ketoacidosis without coma (principal); E10.42 Type 1 diabetes mellitus with diabetic polyneuropathy; K21.9 Gastro-esophageal reflux disease without esophagitis; Z91.19 Patient's noncompliance with other medical treatment and regimen; J44.9 Chronic obstructive pulmonary disease, unspecified; I10 Essential (primary) hypertension; M19.91 Primary osteoarthritis, unspecified site; M41.9 Scoliosis, unspecified; F10.21 Alcohol dependence, in remission; Z79.4 Long term (current) use of insulin; Z88.5 Allergy status to narcotic agent; Z83.3 Family history of diabetes mellitus; Z82.49 Family history of ischemic heart disease and other diseases of the circulatory system
CPT/HCPCS: 36415; 71045; 80048; 80053; 81000; 82010; 82274; 82805; 82947; 83690; 83735; 84100; 85007; 85025; 85027; 87081; 93005; 94760

== ENCOUNTER 2021-07-08 10:43 | Emergency (ER) | payer SELFPAY ==
[~2021-07-08] VITALS: Ht 175 cm; Wt 90.0 kg
--- NOTE | 2021-07-08 10:53 | ED Abdominal Pain ---
General Stated Complaint: ABD PAIN Source of Information: Patient Exam Limitations: No Limitations History of Present Illness Date Seen by Provider: Jul 08, 2021 Time Seen by Provider: 10:52 Initial Comments To ER by EMS from home with reports of recurrent nausea vomiting abdominal pain that started this morning. No fevers. He is diabetic. Symptoms unrelieved by Zofran given by EMS. Continues to smoke marijuana daily. Timing/Duration: 1-2 Days Severity/Quality: Moderate Radiation: No Radiation Activities at Onset: None Associated Symptoms: Nausea/Vomiting Allergies and Home Medications Allergies Coded Allergies: tramadol (Verified Adverse Reaction, Mild, N/V, 12/21/14) Patient Home Medication List Home Medication List Reviewed: Yes Acetaminophen/Diphenhydramine (Tylenol Pm Ex-Strength Caplet) 1 Each Tablet, 1 EACH PO HS PRN for SLEEP, (Reported) Entered as Reported by: ANTHONY BLAKELY on 05/02/21 1334 Gabapentin (Gabapentin) 800 Mg Tablet, 800 MG PO TID, (Reported) Entered as Reported by: SAMRA MCCORD on 08/24/20 1424 Insulin Aspart (Novolog Flexpen) 300 Units/3 Ml Solution, 5 UNITS SQ AC, (Reported) Entered as Reported by: SAMRA MCCORD on 06/07/21 09 Insulin Detemir (Levemir Flextouch) 100 Unit/1 Ml Insuln.pen, 35-40 UNIT SQ HS, (Reported) Entered as Reported by: SAMRA MCCORD on 06/07/21 09 Lisinopril (Lisinopril) 10 Mg Tablet, 10 MG PO DAILY, (Reported) Entered as Reported by: SAMRA MCCORD on 06/07/21 09 Pantoprazole Sodium (Pantoprazole Sodium) 40 Mg Tablet.dr, 40 MG PO DAILY, (Reported) Entered as Reported by: SAMRA MCCORD on 06/07/21 09 Sucralfate (Carafate) 1 Gm Tablet, 1 GM PO ACHS, (Reported) Entered as Reported by: SAMRA MCCORD on 06/07/21 09 Review of Systems Review of Systems Constitutional: see HPI EENTM: No Symptoms Reported Respiratory: No Symptoms Reported Cardiovascular: No Symptoms Reported Gastrointestinal: See HPI, Abdominal Pain, Nausea Genitourinary: No Symptoms Reported Musculoskeletal: no symptoms reported Skin: no symptoms reported Psychiatric/Neurological: No Symptoms Reported Endocrine: No Symptoms Reported Hematologic/Lymphatic: No Symptoms Reported Past Xhpudww-Pchryb-Hmyiyd Hx Immunizations Up To Date Tetanus Booster (TDap): Unknown First/Initial COVID19 Vaccinat: august 2020 Second COVID19 Vaccination Kumar: SEPTEMBER 2020 Third COVID19 Vaccination Date: 08/11/2020 Seasonal Allergies Seasonal Allergies: No Past Medical History Surgeries: Yes Abdominal, Gallbladder Respiratory: Yes (copd dx by patient) COPD Currently Using CPAP: No Currently Using BIPAP: No Cardiac: Yes Hypertension Neurological: Yes Neuropathy Reproductive Disorders: No Sexually Transmitted Disease: No HIV/AIDS: No Genitourinary: Yes Kidney Infection Gastrointestinal: Yes (ELEVATED LIVER ENZYMES, Hep A) Gastroesophageal Reflux, Liver Disease/Jaundice, Esophagitis Musculoskeletal: Yes Arthritis, Scoliosis, Chronic Back Pain Endocrine: Yes (Type I) Diabetes, Insulin dep HEENT: No Hearing Impairment: Denies Cancer: No Psychosocial: Yes (POLYSUBSTANCE ABUSE) Depression Integumentary: No Blood Disorders: No Adverse Reaction/Blood Tranf: No Family Medical History Alcoholism 19 FATHER G8 BROTHER Congenital heart disease 19 FATHER Family history: Cardiovascular disease 19 FATHER, Onset:40's - 50 Family history: Diabetes mellitus 19 MOTHER Family history: Hypertension 19 FATHER Heart disease 19 FATHER History of - respiratory disease 19 FATHER History of drug abuse 19 MOTHER Hypercholesterolemia 19 FATHER Myocardial infarction 19 FATHER Seizure disorder 19 FATHER No Family History of: Abdominal aortic aneurysm [place]'s disease Cancer Congestive heart failure Cystic fibrosis Dementia Dysphagia Family history: Allergy Family history: Alzheimer's disease Family history: Arthritis Family history: Asthma Family history: Breast disease Family history: Coronary thrombosis Family history: Gastrointestinal disease Family history: Glaucoma Family history: Osteoporosis Family history: Thyroid disorder Headache Hearing loss Hereditary disease History of - anemia History of - disorder Human immunodeficiency virus (HIV) seropositivity Infertile Kidney disease Malignant neoplasm of lung Parkinson's disease Prostate cancer Psychotic disorder Stroke Tuberculosis Visual impairment No Pertinent Family Hx Physical Exam Vital Signs Vital Signs - First Documented 07/08/21 11:14 Temp 36.2 Pulse 50 Resp 18 B/P (MAP) 170/107 (128) Pulse Ox 100 O2 Delivery Room Air Capillary Refill : Height/Weight/BMI Height: 5'10.00" Weight: 240lbs. 0oz. 108.052075mk; 28.02 BMI Method:Stated General Appearance: WD/WN, no apparent distress Neck: non-tender, full range of motion Respiratory: no respiratory distress, no accessory muscle use Cardiovascular: regular rate, rhythm, no murmur Gastrointestinal: normal bowel sounds, soft Extremities: normal range of motion, non-tender Neurologic/Psychiatric: alert, normal mood/affect, oriented x 3 Skin: normal color, warm/dry Progress/Results/Core Measures Results/Orders Lab Results Laboratory Tests Test 07/08/21 10:00 Range/Units White Blood Count 5.7 4.3-11.0 10^3/uL Red Blood Count 4.63 4.30-5.52 10^6/uL Hemoglobin 13.4 13.3-17.7 g/dL Hematocrit 40 40-54 % Mean Corpuscular Volume 86 80-99 fL Mean Corpuscular Hemoglobin 29 25-34 pg Mean Corpuscular Hemoglobin Concent 34 32-36 g/dL Red Cell Distribution Width 12.2 10.0-14.5 % Platelet Count 226 130-400 10^3/uL Mean Platelet Volume 8.8 L 9.0-12.2 fL Immature Granulocyte % (Auto) 0 % Neutrophils (%) (Auto) 50 42-75 % Lymphocytes (%) (Auto) 41 12-44 % Monocytes (%) (Auto) 4 0-12 % Eosinophils (%) (Auto) 4 0-10 % Basophils (%) (Auto) 1 0-10 % Neutrophils # (Auto) 2.8 1.8-7.8 10^3/uL Lymphocytes # (Auto) 2.3 1.0-4.0 10^3/uL Monocytes # (Auto) 0.3 0.0-1.0 10^3/uL Eosinophils # (Auto) 0.3 0.0-0.3 10^3/uL Basophils # (Auto) 0.0 0.0-0.1 10^3/uL Immature Granulocyte # (Auto) 0.0 0.0-0.1 10^3/uL Sodium Level 139 135-145 MMOL/L Potassium Level 3.6 3.6-5.0 MMOL/L Chloride Level 103 98-107 MMOL/L Carbon Dioxide Level 25 21-32 MMOL/L Anion Gap 11 5-14 MMOL/L Blood Urea Nitrogen 15 7-18 MG/DL Creatinine 0.72 0.60-1.30 MG/DL Estimat Glomerular Filtration Rate 123 BUN/Creatinine Ratio 21 Glucose Level 107 H 70-105 MG/DL Calcium Level 9.5 8.5-10.1 MG/DL Corrected Calcium 9.5 8.5-10.1 MG/DL Total Bilirubin 0.3 0.1-1.0 MG/DL Aspartate Amino Transf (AST/SGOT) 19 5-34 U/L Alanine Aminotransferase (ALT/SGPT) 29 0-55 U/L Alkaline Phosphatase 82 40-136 U/L Total Protein 6.6 6.4-8.2 GM/DL Albumin 4.0 3.2-4.5 GM/DL Lipase 9 8-78 U/L Beta-Hydroxybutyrate (Chem panel) 0.20 0.00-0.27 MMOL/L My Orders Orders - ZACHERY BAKER APRN Beta Hydroxybutyrate (07/08/21 10:51) Cbc With Automated Diff (07/08/21 10:51) Comprehensive Metabolic Panel (07/08/21 10:51) Ua Culture If Indicated (07/08/21 10:51) Ed Iv/Invasive Line Start (07/08/21 10:51) Drug Screen Stat (Urine) (07/08/21 10:51) Lipase (07/08/21 10:51) Lactated Ringers (Lr 1000 Ml Iv Solution (07/08/21 11:00) Droperidol Inj (Ed Only) (Inapsine Inj ( (07/08/21 11:00) Medications Given in ED Current Medications Medications Dose Ordered Sig/Fer Route Start Time Stop Time Status Last Admin Dose Admin Droperidol 2.5 mg ONCE ONCE IV 07/08/21 11:00 07/08/21 11:01 DC 07/08/21 11:03 2.5 MG Vital Signs/I&O 07/08/21 07/08/21 11:14 12:42 Temp 36.2 Pulse 50 55 Resp 18 16 B/P (MAP) 170/107 (128) 158/104 Pulse Ox 100 100 O2 Delivery Room Air Room Air Departure Communication (Admissions) 1246 labs are unremarkable, reports that he continues to feel poorly all over. Cannot provide us with a urine sample. His room smells very strongly of cannabis. Discussed with him the need to discontinue the use of it.- Impression Primary Impression: Cannabinoid hyperemesis syndrome Disposition: HOME, SELF-CARE Condition: Stable Departure-Patient Inst. Decision time for Depature: 11:46 Referrals: [facility] (PCP/Family) Primary Care Physician Patient Instructions: No Instuctions Given Add. Discharge Instructions: You must quit the marijuana completely if you want these episodes of recurrent nausea and vomiting to stop. You must be off of it for at least 3 weeks to notice improvement. This is not an overnight improvement. Scripts Prochlorperazine Maleate (Compazine) 10 Mg Tablet 10 MG PO TID PRN for NAUSEA/VOMITING, #14 TAB Prov: ZACHERY BAKER APRN 07/08/21 Work/School Note: Work Release Form Date Seen in the Emergency Department: Jul 08, 2021 Return to Work: Jul 11, 2021 ZACHERY BAKER APRN Jul 08, 2021 10:53
[2021-07-08] MEDS ORDERED: LACTATED RINGERS 1,000 ML IV SCH (11:00)
[2021-07-08] MEDS ORDERED: DROPERIDOL 5 MG/2 ML (INAPSINE) ED ONLY! IV ONE (11:00)
[2021-07-08 11:05] LABS: BASOPHILS % (AUTO) 1 % (0-10); EOSINOPHILS # (AUTO) 0.3 10^3/uL (0.0-0.3); EOSINOPHILS % (AUTO) 4 % (0-10); HEMATOCRIT 40 % (40-54); HEMOGLOBIN 13.4 g/dL (13.3-17.7); LYMPHOCYTES # (AUTO) 2.3 10^3/uL (1.0-4.0); LYMPHOCYTES % (AUTO) 41 % (12-44); MEAN CORPUSCULAR HEMOGLOBIN 29 pg (25-34); MEAN CORPUSCULAR HGB CONC 34 g/dL (32-36); MEAN CORPUSCULAR VOLUME 86 fL (80-99); MEAN PLATELET VOLUME 8.8 fL (9.0-12.2); MONOCYTES # (AUTO) 0.3 10^3/uL (0.0-1.0); MONOCYTES % (AUTO) 4 % (0-12); NEUTROPHILS # (AUTO) 2.8 10^3/uL (1.8-7.8); NEUTROPHILS % (AUTO) 50 % (42-75); PLATELET COUNT 226 10^3/uL (130-400); WHITE BLOOD COUNT 5.7 10^3/uL (4.3-11.0)
[2021-07-08 11:25] LABS: POTASSIUM 3.6 MMOL/L (3.6-5.0)
[2021-07-08 11:26] LABS: CALCIUM 9.5 MG/DL (8.5-10.1)
[2021-07-08 11:27] LABS: TOTAL PROTEIN 6.6 GM/DL (6.4-8.2)
[2021-07-08 11:29] LABS: BILIRUBIN,TOTAL 0.3 MG/DL (0.1-1.0)
[2021-07-08 11:31] LABS: CREATININE SERUM 0.72 MG/DL (0.60-1.30)
[2021-07-08] MEDS ORDERED: PROC-1 PO (12:46)
[2021-07-08 13:00] VITALS: BP 158/104
== END 2021-07-08 13:02 | disposition home or self-care (01) ==
LOC: EDUNIT# 10:43 → ER 10:45
DX: R11.2 Nausea with vomiting, unspecified (principal); J44.9 Chronic obstructive pulmonary disease, unspecified; I10 Essential (primary) hypertension; K21.9 Gastro-esophageal reflux disease without esophagitis; E10.9 Type 1 diabetes mellitus without complications; Z79.899 Other long term (current) drug therapy
CPT/HCPCS: 36415; 80053; 82010; 83690; 85025

== ENCOUNTER 2021-07-09 19:46 | Inpatient (IN) | payer SELFPAY ==
[~2021-07-09] VITALS: Ht 175.3 cm; Wt 86.2 kg
[~2021-07-09 19:46] MED LIST changes: +PROC-1 PO
--- NOTE | 2021-07-09 20:01 | ED General ---
General Stated Complaint: DKA, BODY BURNING INSIDE, DIZZY Source of Information: Patient Exam Limitations: No Limitations History of Present Illness Date Seen by Provider: Jul 09, 2021 Time Seen by Provider: 19:59 Initial Comments Patient is a 36-year-old male with a history of type 1 diabetes, marijuana use who presents ED with diffuse abdominal pain, burning in chest, burning in his legs. Symptoms started 1 hour ago when he woke up. Took his blood sugar that read 480. Patient states he has been vomiting over the past 2 days. No diarrhea, cough. Reports burning sensation in his chest. Generalized abdominal discomfort. Denies of any hematemesis. Headache, dizziness today. History of DKA. Last use of marijuana was 3 days ago. He was seen here yesterday in the ER diagnosis with cannabis hyperemesis syndrome. Reports frequent urination. Patient took 5 units of regular insulin and 30 units of Levemir before arrival. Allergies and Home Medications Allergies Coded Allergies: tramadol (Verified Adverse Reaction, Mild, N/V, 12/21/14) Patient Home Medication List Home Medication List Reviewed: Yes Acetaminophen/Diphenhydramine (Tylenol Pm Ex-Strength Caplet) 1 Each Tablet, 1 EACH PO HS PRN for SLEEP, (Reported) Entered as Reported by: ANTHONY BLAKELY on 05/02/21 1334 Gabapentin (Gabapentin) 800 Mg Tablet, 800 MG PO TID, (Reported) Entered as Reported by: SAMRA MCCORD on 08/24/20 1424 Insulin Aspart (Novolog Flexpen) 300 Units/3 Ml Solution, 5 UNITS SQ AC, (Reported) Entered as Reported by: SAMRA MCCORD on 06/07/21 0935 Insulin Detemir (Levemir Flextouch) 100 Unit/1 Ml Insuln.pen, 35-40 UNIT SQ HS, (Reported) Entered as Reported by: SAMRA MCCORD on 06/07/21 09 Lisinopril (Lisinopril) 10 Mg Tablet, 10 MG PO DAILY, (Reported) Entered as Reported by: SAMRA MCCORD on 06/07/21 09 Pantoprazole Sodium (Pantoprazole Sodium) 40 Mg Tablet.dr, 40 MG PO DAILY, (Reported) Entered as Reported by: SAMRA MCCORD on 06/07/21 09 Prochlorperazine Maleate (Compazine) 10 Mg Tablet, 10 MG PO TID PRN for NAUSEA/VOMITING Prescribed by: ZACHERY BAKER on 07/08/21 1246 Sucralfate (Carafate) 1 Gm Tablet, 1 GM PO ACHS, (Reported) Entered as Reported by: SAMRA MCCORD on 06/07/21 4358 Review of Systems Review of Systems Constitutional: No chills, No diaphoresis; dizziness; No fever; malaise EENTM: No hearing loss, No ear pain, No eye pain, No tearing, No nose pain, No throat pain, No throat swelling Respiratory: No cough, No orthopnea, No short of breath, No wheezing Cardiovascular: chest pain Gastrointestinal: abdominal pain; No diarrhea; nausea, vomiting Genitourinary: No decreased output, No discharge Musculoskeletal: No back pain, No joint pain Skin: No change in color, No change in hair/nails All Other Systems Reviewed Negative Unless Noted: Yes Past Gwigxph-Qzitze-Dkautb Hx Immunizations Up To Date Tetanus Booster (TDap): Unknown First/Initial COVID19 Vaccinat: august 2020 Second COVID19 Vaccination Kumar: SEPTEMBER 2020 Third COVID19 Vaccination Date: APRIL 2021 Seasonal Allergies Seasonal Allergies: No Past Medical History Surgeries: Yes Abdominal, Gallbladder Respiratory: Yes (copd dx by patient) COPD Currently Using CPAP: No Currently Using BIPAP: No Cardiac: Yes Hypertension Neurological: Yes Neuropathy Reproductive Disorders: No Sexually Transmitted Disease: No HIV/AIDS: No Genitourinary: Yes Kidney Infection Gastrointestinal: Yes (ELEVATED LIVER ENZYMES, Hep A) Gastroesophageal Reflux, Liver Disease/Jaundice, Esophagitis Musculoskeletal: Yes Arthritis, Scoliosis, Chronic Back Pain Endocrine: Yes (Type I) Diabetes, Insulin dep HEENT: No Hearing Impairment: Denies Cancer: No Psychosocial: Yes (POLYSUBSTANCE ABUSE) Depression Integumentary: No Blood Disorders: No Adverse Reaction/Blood Tranf: No Family Medical History Alcoholism 19 FATHER G8 BROTHER Congenital heart disease 19 FATHER Family history: Cardiovascular disease 19 FATHER, Onset:40's - 50 Family history: Diabetes mellitus 19 MOTHER Family history: Hypertension 19 FATHER Heart disease 19 FATHER History of - respiratory disease 19 FATHER History of drug abuse 19 MOTHER Hypercholesterolemia 19 FATHER Myocardial infarction 19 FATHER Seizure disorder 19 FATHER No Family History of: Abdominal aortic aneurysm [place]'s disease Cancer Congestive heart failure Cystic fibrosis Dementia Dysphagia Family history: Allergy Family history: Alzheimer's disease Family history: Arthritis Family history: Asthma Family history: Breast disease Family history: Coronary thrombosis Family history: Gastrointestinal disease Family history: Glaucoma Family history: Osteoporosis Family history: Thyroid disorder Headache Hearing loss Hereditary disease History of - anemia History of - disorder Human immunodeficiency virus (HIV) seropositivity Infertile Kidney disease Malignant neoplasm of lung Parkinson's disease Prostate cancer Psychotic disorder Stroke Tuberculosis Visual impairment No Pertinent Family Hx Physical Exam Vital Signs Vital Signs - First Documented 07/09/21 19:54 Temp 36.3 Pulse 121 Resp 20 B/P (MAP) 155/94 (114) Pulse Ox 100 O2 Delivery Room Air Capillary Refill : Height, Weight, BMI Height: 5'10.00" Weight: 240lbs. 0oz. 108.600544ta; 29.00 BMI Method:Stated General Appearance: No Apparent Distress, WD/WN Eyes: Bilateral Eye Normal Inspection, Bilateral Eye PERRL, Bilateral Eye EOMI HEENT: PERRL/EOMI, TMs Normal, Normal ENT Inspection, Pharynx Normal Neck: Full Range of Motion, Normal Inspection, Non Tender, Supple Respiratory: Chest Non Tender, Lungs Clear, Normal Breath Sounds, No Accessory Muscle Use, No Respiratory Distress Cardiovascular: No Edema, No Gallop, No JVD, Tachycardia Gastrointestinal: Normal Bowel Sounds, No Organomegaly, No Pulsatile Mass, Soft, Tenderness Back: Normal Inspection, No CVA Tenderness, No Vertebral Tenderness Extremity: Normal Capillary Refill, Normal Inspection, Normal Range of Motion, Non Tender, No Calf Tenderness Focused Exam Lactate Level 07/09/21 20:00: Lactic Acid Level 2.34*H Lactic Acid Level Laboratory Tests Test 07/09/21 20:00 Lactic Acid Level 2.34 MMOL/L (0.50-2.00) *H Progress/Results/Core Measures Suspected Sepsis SIRS Temperature: Pulse: Respiratory Rate: Laboratory Tests 07/09/21 20:00: White Blood Count 14.3H Blood Pressure / Mean: 07/09/21 20:00: Lactic Acid Level 2.34*H Laboratory Tests 07/09/21 20:00: Creatinine 1.22, Platelet Count 351 Results/Orders Lab Results Laboratory Tests Test 07/09/21 20:00 07/09/21 20:05 07/09/21 20:15 07/09/21 21:05 Range/Units White Blood Count 14.3 H 4.3-11.0 10^3/uL Red Blood Count 4.94 4.30-5.52 10^6/uL Hemoglobin 14.3 13.3-17.7 g/dL Hematocrit 43 40-54 % Mean Corpuscular Volume 86 80-99 fL Mean Corpuscular Hemoglobin 29 25-34 pg Mean Corpuscular Hemoglobin Concent 34 32-36 g/dL Red Cell Distribution Width 12.1 10.0-14.5 % Platelet Count 351 130-400 10^3/uL Mean Platelet Volume 9.3 9.0-12.2 fL Sodium Level 128 L 135-145 MMOL/L Potassium Level 4.8 3.6-5.0 MMOL/L Chloride Level 97 L 98-107 MMOL/L Carbon Dioxide Level 8 *L 21-32 MMOL/L Anion Gap 23 H 5-14 MMOL/L Blood Urea Nitrogen 23 H 7-18 MG/DL Creatinine 1.22 0.60-1.30 MG/DL Estimat Glomerular Filtration Rate 80 BUN/Creatinine Ratio 19 Glucose Level 462 *H 70-105 MG/DL Lactic Acid Level 2.34 *H 0.50-2.00 MMOL/L Calcium Level 9.1 8.5-10.1 MG/DL Troponin I < 0.028 <0.028 NG/ML Beta-Hydroxybutyrate (Chem panel) 8.23 H 0.00-0.27 MMOL/L Glucometer 435 *H 70-110 MG/DL Blood Gas Puncture Site RRAD Blood Gas Patient Temperature 36.3 Arterial Blood pH 7.26 *L 7.37-7.43 Arterial Blood Partial Pressure CO2 20 L 35-45 MMHG Arterial Blood Partial Pressure O2 102 H 79-93 MMHG Arterial Blood HCO3 9 *L 23-27 MMOL/L Arterial Blood Total CO2 9.1 *L 21.0-31.0 MMOL/L Arterial Blood Oxygen Saturation 96 94-100 % Arterial Blood Base Excess -17.5 L -2.5-2.5 MMOL/L Mauri Test POS Blood Gas Ventilator Setting NO Blood Gas Inspired Oxygen ROOM AIR Urine Color YELLOW Urine Clarity CLEAR Urine pH 5.5 5-9 Urine Specific [place] >=1.030 1.016-1.022 Urine Protein NEGATIVE NEGATIVE Urine Glucose (UA) 2+ H NEGATIVE Urine Ketones 3+ H NEGATIVE Urine Nitrite NEGATIVE NEGATIVE Urine Bilirubin NEGATIVE NEGATIVE Urine Urobilinogen 0.2 < = 1.0 MG/DL Urine Leukocyte Esterase NEGATIVE NEGATIVE Urine RBC (Auto) NEGATIVE NEGATIVE Urine RBC NONE /HPF Urine WBC NONE /HPF Urine Crystals PRESENT H /LPF Urine Amorphous Sediment RARE REGINALDO URATES H /LPF Urine Bacteria NEGATIVE /HPF Urine Casts PRESENT /LPF Urine Hyaline Casts 5-10 H /LPF Urine Mucus NEGATIVE /LPF Urine Culture Indicated NO Urine Opiates Screen NEGATIVE NEGATIVE Urine Oxycodone Screen NEGATIVE NEGATIVE Urine Methadone Screen NEGATIVE NEGATIVE Urine Propoxyphene Screen NEGATIVE NEGATIVE Urine Barbiturates Screen NEGATIVE NEGATIVE Ur Tricyclic Antidepressants Screen NEGATIVE NEGATIVE Urine Phencyclidine Screen NEGATIVE NEGATIVE Urine Amphetamines Screen NEGATIVE NEGATIVE Urine Methamphetamines Screen NEGATIVE NEGATIVE Urine Benzodiazepines Screen NEGATIVE NEGATIVE Urine Cocaine Screen NEGATIVE NEGATIVE Urine Cannabinoids Screen POSITIVE H NEGATIVE My Orders Orders - NEVIN JOHNSON Lactic Acid Analyzer (07/09/21 20:02) Accucheck Stat ONCE (07/09/21 20:02) Iv/Invasive Line Insertion .IV start (07/09/21 20:02) Cbc No Diff (07/09/21 20:02) Basic Metabolic Panel (07/09/21 20:02) Basic Metabolic Panel (07/09/21 22:02) Urinalysis (07/09/21 20:02) Ns Iv 1000 Ml (Sodium Chloride 0.9%) (07/09/21 20:15) Ondansetron Injection (Zofran Injectio (07/09/21 20:15) Ketorolac Injection (Toradol Injection) (07/09/21 20:15) Beta Hydroxybutyrate (07/09/21 20:02) Ekg Tracing (07/09/21 20:09) Troponin I Davison (07/09/21 20:09) Arterial Blood Gas (07/09/21 20:15) Ns Iv 1000 Ml (Sodium Chloride 0.9%) (07/09/21 20:18) Ondansetron Injection (Zofran Injectio (07/09/21 20:18) Ketorolac Injection (Toradol Injection) (07/09/21 20:18) Lactated Ringers (Lr 1000 Ml Iv Solution (07/09/21 20:30) Chest 1 View, Ap/Pa Only (07/09/21 20:45) Insulin (Regular) Human (Novolin R (Per (07/09/21 21:00) Medications Given in ED Current Medications Medications Dose Ordered Sig/Fer Route Start Time Stop Time Status Last Admin Dose Admin Insulin Human Regular 10 unit ONCE ONCE SC 07/09/21 21:00 07/09/21 21:01 DC 07/09/21 21:08 10 UNIT Ketorolac Tromethamine 30 mg ONCE ONCE IVP 07/09/21 20:15 07/09/21 20:28 DC 07/09/21 20:20 30 MG Ondansetron HCl 4 mg ONCE ONCE IVP 07/09/21 20:15 07/09/21 20:28 DC 07/09/21 20:20 4 MG Vital Signs/I&O 07/09/21 19:54 Temp 36.3 Pulse 121 Resp 20 B/P (MAP) 155/94 (114) Pulse Ox 100 O2 Delivery Room Air Capillary Refill : Departure Communication (Admissions) Time/Spoke to Admitting Phy: 21:[address] Jackson. Recommend started on insulin drip. Started on 5 units/kg until 200-250. Patient was given IV bolus 10 mg. Patient was given 2 L of fluid. Patient and current DKA. Patient will be admitted to the ICU for further evaluation. DKA protocol was initiated. Patient with elevated anion gap 23. Bicarb 9. pH 7.26. Elevated beta ketones and blood. Concerning for DKA, dehydration. Patient will be admitted to the [facility] for further evaluation. Patient started on insulin drip with current protocol. Impression Primary Impression: DKA (diabetic ketoacidosis) Disposition: ADMITTED INPATIENT Condition: Stable Admissions Decision to Admit Reason: Admit from ER (General) Decision to Admit/Date: Jul 09, 2021 Time/Decision to Admit Time: 21:39 Departure-Patient Inst. Referrals: [facility] (PCP) Primary Care Physician [facility] (Family) Primary Care Physician NEVIN JOHNSON Jul 09, 2021 20:01
[2021-07-09] MEDS ORDERED: NS IV 1000 ML 1,000 ML IV SCH ×2 (20:15→23:00)
[2021-07-09] MEDS ORDERED: KETOROLAC 30 MG/ML VIAL IVP ONE (20:15)
[2021-07-09] MEDS ORDERED: ONDANSETRON 4 MG/2 ML (SDV) Z0FRAN IVP ONE (20:15)
[2021-07-09 20:18] LABS: HEMATOCRIT 43 % (40-54); HEMOGLOBIN 14.3 g/dL (13.3-17.7); MEAN CORPUSCULAR HEMOGLOBIN 29 pg (25-34); MEAN CORPUSCULAR HGB CONC 34 g/dL (32-36); MEAN CORPUSCULAR VOLUME 86 fL (80-99); MEAN PLATELET VOLUME 9.3 fL (9.0-12.2); PLATELET COUNT 351 10^3/uL (130-400); WHITE BLOOD COUNT 14.3 10^3/uL (4.3-11.0)
[2021-07-09] MEDS ORDERED: ONDANSETRON 4 MG/2 ML (SDV) Z0FRAN ONE (20:18)
[2021-07-09] MEDS ORDERED: KETOROLAC 30 MG/ML VIAL ONE (20:18)
[2021-07-09] MEDS ORDERED: NS IV 1000 ML 1,000 ML ONE (20:18)
[2021-07-09 20:22] LABS: ABG BASE EXCESS -17.5 MMOL/L (-2.5-2.5); ABG OXYGEN SATURATION 96 % (94-100); ABG PCO2 20 MMHG (35-45); ABG PO2 102 MMHG (79-93)
[2021-07-09 20:23] LABS: ABG PH 7.26 (7.37-7.43)
[2021-07-09 20:24] LABS: ABG TCO2 9.1 MMOL/L (21.0-31.0); ALLENS TEST POS; INSPIRED O2 ROOM AIR; PATIENT TEMP 36.3; VENTILATOR NO
[2021-07-09] MEDS ORDERED: LACTATED RINGERS 1,000 ML IV STA (20:30)
[2021-07-09 20:35] LABS: BUN/CREATININE RATIO 19; CALCIUM 9.1 MG/DL (8.5-10.1); CHLORIDE 97 MMOL/L (98-107); CREATININE SERUM 1.22 MG/DL (0.60-1.30); GFR ESTIMATED 80; POTASSIUM 4.8 MMOL/L (3.6-5.0); SODIUM 128 MMOL/L (135-145)
[2021-07-09 20:41] LABS: CARBON DIOXIDE 8 MMOL/L (21-32); GLUCOSE 462 MG/DL (70-105)
[2021-07-09] MEDS ORDERED: inSUlin (REGULAR) HUMAN 1 UNIT/0.01 ML (CHARGE PER UNIT) SC ONE (21:00)
--- NOTE | 2021-07-09 21:11 | Diagnostic Imaging Report ---
INDICATION: Cough. EXAMINATION: Chest, 07/09/2021. COMPARISON: 06/06/2021. FINDINGS: There is a vague density at the left lung base, possibly early infiltrate. Remaining lungs clear. No effusions. No pneumothorax. Heart and pulmonary vasculature are normal. IMPRESSION: Vague area of atelectasis versus infiltrate at the left lung base. Dictated by: Dictated on workstation # [id number]
[2021-07-09 21:18] LABS: BILIRUBIN,URINE NEGATIVE (NEGATIVE); CLARITY,URINE CLEAR; COLOR,URINE YELLOW; GLUCOSE, URINE (UA) 2+ (NEGATIVE); KETONES,URINE 3+ (NEGATIVE); LEUKOCYTE ESTERASE ,URINE NEGATIVE (NEGATIVE); NITRITE,URINE NEGATIVE (NEGATIVE); PH,URINE 5.5 (5-9); PROTEIN,URINE NEGATIVE (NEGATIVE)
[2021-07-09 21:39] LABS: AMPHETAMINE SCREEN, URINE NEGATIVE (NEGATIVE); BARBITURATE SCREEN URINE NEGATIVE (NEGATIVE); BENZODIAZEPINES SCREEN URINE NEGATIVE (NEGATIVE); CANNABINOID SCREEN, URINE POSITIVE (NEGATIVE); COCAINE SCREEN URINE NEGATIVE (NEGATIVE); METHADONE STAT NEGATIVE (NEGATIVE); METHAMPHETAMINE SCREEN URINE S NEGATIVE (NEGATIVE); OPIATE SCREEN URINE NEGATIVE (NEGATIVE); OXYCODONE STAT NEGATIVE (NEGATIVE); PROPOXYPHENE STAT NEGATIVE (NEGATIVE); TRICYCLIC ANTIDEPRESSANTS SCRE NEGATIVE (NEGATIVE)
[2021-07-09 21:43] LABS: AMORPHOUS SEDIMENT,UR RARE AMOR URATES /LPF; BACTERIA,URINE NEGATIVE /HPF
[2021-07-09 22:44] VITALS: BP 166/92
--- NOTE | 2021-07-09 22:58 | Tele-ICU Consult ---
History of Present Illness History of Present Illness Date Seen by Provider: Jul 09, 2021 Time Seen by Provider: 22:52 History of Present Illness 36 yo M came to ED with abd pain, frequent urination has glu about 450 HCO3 8 started on DKA protocol, UDS + for cannibinoids Known to have DM1, In ED day before for vomiting possibly from cannabis Allergies and Home Medications Allergies Coded Allergies: tramadol (Verified Adverse Reaction, Mild, N/V, 12/21/14) Home Medications Acetaminophen/Diphenhydramine 1 Each Tablet, 1 EACH PO HS PRN for SLEEP, (Reported) Gabapentin 800 Mg Tablet, 800 MG PO TID, (Reported) Insulin Aspart 300 Units/3 Ml Solution, 5 UNITS SQ AC, (Reported) Insulin Detemir 100 Unit/1 Ml Insuln.pen, 35-40 UNIT SQ HS, (Reported) Lisinopril 10 Mg Tablet, 10 MG PO DAILY, (Reported) Pantoprazole Sodium 40 Mg Tablet.dr, 40 MG PO DAILY, (Reported) Prochlorperazine Maleate 10 Mg Tablet, 10 MG PO TID PRN for NAUSEA/VOMITING Prescribed by: ZACHERY BAKER on 07/08/21 1246 Sucralfate 1 Gm Tablet, 1 GM PO ACHS, (Reported) Past Medical/Social/Family Hx Patient Social History Tobacco Use?: No Use of E-Cig and/or Vaping dev: No Substance use?: Yes Substance type: Marijuana HX METH USE Alcohol Use?: No Immunizations Up To Date Influenza Vaccine Up-to-Date: Yes; Up-to-Date First/Initial COVID19 Vaccinat: august 2020 Second COVID19 Vaccination Kumar: SEPTEMBER 2020 Tetanus Booster (TDap): Less Than 5 Years Hepatitis A: No Hepatitis B: No TB Skin Test: None Date of Pneumonia Vaccine: Aug 27, 2011 Current Status Advance Directives: No Communicates: Verbally Primary Language: Norwegian Preferred Spoken Language: Norwegian Past Medical History Past Medical History 1. DM, insulin requiring, not controlled, not compliant 2. Hypertension- was previously prescribed medications but never filled 3. Alcoholism- with previous heavy daily alcohol use- reports stopped drinking 4. 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 Tobaccoism 6. GERD 7. Non-compliance- pt. is chronically non-compliant with his medications and follow up 8. Peipheral Neuropathy Past Surgical History 1. None Review of Systems Constitutional: see HPI Gastrointestinal: abdominal pain Focused Exam Lactate Level 07/09/21 20:00: Lactic Acid Level 2.34*H Height, Weight, BMI Height: 5'10.00" Weight: 240lbs. 0oz. 108.577874ca; 28.00 BMI Method:Stated Lactic Acid Level Laboratory Tests Test 07/09/21 20:00 Lactic Acid Level 2.34 MMOL/L (0.50-2.00) *H Exam Exam Patient acknowledged, consented, and participated in this virtual visit which was conducted using real time audio/video Vital Signs Date Time Temp Pulse Resp B/P (MAP) Pulse Ox O2 Delivery O2 Flow Rate FiO2 07/09/21 19:54 36.3 121 20 155/94 (114) 100 Room Air Height & Weight Height: 5'10.00" Weight: 240lbs. 0oz. 108.129869kk; 28.00 BMI Method:Stated General Appearance: No Apparent Distress, WD/WN HEENT: PERRL/EOMI, TMs Normal, Normal ENT Inspection, Pharynx Normal Neck: Full Range of Motion, Normal Inspection, Non Tender, Supple Respiratory: Chest Non Tender, Lungs Clear, Normal Breath Sounds, No Accessory Muscle Use, No Respiratory Distress Cardiovascular: Regular Rate, Rhythm, No Edema, No Gallop, No JVD, Tachycardia Capillary Refill: Less Than 3 Seconds Gastrointestinal: guarding Extremity: Normal Capillary Refill, Normal Inspection, Normal Range of Motion, Non Tender, No Calf Tenderness Results Lab Laboratory Tests 07/09/21 20:00 Assessment/Plan Assessment/Plan DKA, will continue DKA protocol, takes Neurotin 800 tid, will order Ramses Concepcion MD Critical Care: Critically Ill Patient Time spent with patient (mins): 25 DONTE CONCEPCION MD Jul 09, 2021 22:57
[2021-07-09] MEDS ORDERED: POTASSIUM CL 10MEQ/50ML IVPB 50 ML IV SCH (23:00)
[2021-07-09] MEDS: 1/2 NS IV SOLUTION 1,000 ML IV SCH (23:35)
[2021-07-09] MEDS: POTASSIUM CL 10MEQ/50ML IVPB 50 ML IV SCH (23:35)
[2021-07-09] MEDS: GABAPENTIN 400 MG (NEURONTIN) CAP PO SCH (23:42)
[2021-07-09 23:46] LABS: HEMATOCRIT 36 % (40-54); HEMOGLOBIN 12.5 g/dL (13.3-17.7); MEAN CORPUSCULAR HEMOGLOBIN 29 pg (25-34); MEAN CORPUSCULAR HGB CONC 35 g/dL (32-36); MEAN CORPUSCULAR VOLUME 83 fL (80-99); MEAN PLATELET VOLUME 8.9 fL (9.0-12.2); PLATELET COUNT 276 10^3/uL (130-400); WHITE BLOOD COUNT 13.4 10^3/uL (4.3-11.0)
[2021-07-10 00:05] LABS: POTASSIUM 4.3 MMOL/L (3.6-5.0)
[2021-07-10 00:06] LABS: CALCIUM 8.5 MG/DL (8.5-10.1)
[2021-07-10 00:10] LABS: CREATININE SERUM 0.87 MG/DL (0.60-1.30)
--- NOTE | 2021-07-10 00:24 | Tele-ICU Progress Note ---
Subjective Date Seen by a Provider: Jul 10, 2021 Time Seen by a Provider: 00:23 Subjective/Events-last exam c/o abd pain, nausea, will give IV morphine PRN and IV Zofran QTc is 432 Sepsis Event Evaluation Height, Weight, BMI Height: 5'10.00" Weight: 240lbs. 0oz. 108.416113fs; 28.18 BMI Method:Stated Focused Exam Lactate Level 07/09/21 20:00: Lactic Acid Level 2.34*H 07/09/21 23:27: Lactic Acid Level 1.23 Lactic Acid Level Laboratory Tests Test 07/09/21 23:27 Lactic Acid Level 1.23 MMOL/L (0.50-2.00) Exam Exam Patient acknowledged, consented, and participated in this virtual visit which was conducted using real time audio/video Vital Signs Date Time Temp Pulse Resp B/P (MAP) Pulse Ox O2 Delivery O2 Flow Rate FiO2 07/09/21 23:30 89 16 107/56 100 Room Air 07/09/21 23:15 96 16 100/50 98 Room Air 07/09/21 23:00 90 19 117/74 100 Room Air 07/09/21 22:55 90 07/09/21 22:51 36.6 91 24 124/80 100 Room Air 07/09/21 22:45 90 19 124/80 100 Room Air 07/09/21 22:44 73 20 166/92 99 Room Air 07/09/21 19:54 36.3 121 20 155/94 (114) 100 Room Air I & O 07/10/21 07:00 Intake Total 2000 ml Balance 2000 ml Height & Weight Height: 5'10.00" Weight: 240lbs. 0oz. 108.426927au; 28.18 BMI Method:Stated General Appearance: No Apparent Distress, WD/WN HEENT: PERRL/EOMI, TMs Normal, Normal ENT Inspection, Pharynx Normal Neck: Full Range of Motion, Normal Inspection, Non Tender, Supple Respiratory: Chest Non Tender, Lungs Clear, Normal Breath Sounds, No Accessory Muscle Use, No Respiratory Distress Cardiovascular: Regular Rate, Rhythm, No Edema, No Gallop, No JVD, Tachycardia Capillary Refill: Less Than 3 Seconds Gastrointestinal: guarding Extremity: Normal Capillary Refill, Normal Inspection, Normal Range of Motion, Non Tender, No Calf Tenderness Results Lab Laboratory Tests 07/09/21 20:00 07/09/21 23:27 Assessment/Plan Assessment/Plan will give IV Zofran and IV morphine Critical Care: Critically Ill Patient Time spent with patient (mins): 10 DONTE CONCEPCINO MD Jul 10, 2021 00:24
[2021-07-10] MEDS ORDERED: ONDANSETRON 4 MG/2 ML (SDV) Z0FRAN IVP ONE (00:30)
[2021-07-10] MEDS ORDERED: morphine INJ 4 MG/ML 1 ML (VIAL/SYRINGE) IVP STA (00:34)
[2021-07-10] MEDS: POTASSIUM CL 10MEQ/50ML IVPB 50 ML IV SCH ×6 (01:26→13:52)
[2021-07-10 02:37] LABS: AMYLASE 34 U/L (25-125)
[2021-07-10 02:46] LABS: LIPASE 6 U/L (8-78)
[2021-07-10 02:54] LABS: BASOPHILS % (AUTO) 0 % (0-10); EOSINOPHILS # (AUTO) 0.1 10^3/uL (0.0-0.3); EOSINOPHILS % (AUTO) 1 % (0-10); HEMATOCRIT 35 % (40-54); HEMOGLOBIN 11.9 g/dL (13.3-17.7); LYMPHOCYTES # (AUTO) 3.4 10^3/uL (1.0-4.0); LYMPHOCYTES % (AUTO) 29 % (12-44); MEAN CORPUSCULAR HEMOGLOBIN 29 pg (25-34); MEAN CORPUSCULAR HGB CONC 34 g/dL (32-36); MEAN CORPUSCULAR VOLUME 85 fL (80-99); MONOCYTES # (AUTO) 0.7 10^3/uL (0.0-1.0); MONOCYTES % (AUTO) 6 % (0-12); NEUTROPHILS # (AUTO) 7.4 10^3/uL (1.8-7.8); NEUTROPHILS % (AUTO) 64 % (42-75); PLATELET COUNT 275 10^3/uL (130-400); WHITE BLOOD COUNT 11.6 10^3/uL (4.3-11.0)
[2021-07-10 03:01] LABS: ALBUMIN 3.4 GM/DL (3.2-4.5); POTASSIUM 3.7 MMOL/L (3.6-5.0)
[2021-07-10 03:02] LABS: CALCIUM 8.4 MG/DL (8.5-10.1)
[2021-07-10 03:03] LABS: TOTAL PROTEIN 5.4 GM/DL (6.4-8.2)
[2021-07-10 03:05] LABS: BILIRUBIN,TOTAL 0.6 MG/DL (0.1-1.0)
[2021-07-10 03:07] LABS: CREATININE SERUM 0.88 MG/DL (0.60-1.30); PHOSPHORUS 1.9 MG/DL (2.3-4.7)
[2021-07-10 03:10] LABS: MAGNESIUM 1.6 MG/DL (1.6-2.4)
[2021-07-10] MEDS: 1/2 NS IV SOLUTION 1,000 ML IV SCH ×3 (03:14→10:55)
[2021-07-10] MEDS: D5 1/2 NS 1000 ML IV SOLUTION 1,000 ML IV SCH ×3 (03:14→13:52)
[2021-07-10 07:27] LABS: POTASSIUM 4.1 MMOL/L (3.6-5.0)
[2021-07-10 07:28] LABS: CALCIUM 8.4 MG/DL (8.5-10.1)
[2021-07-10 07:33] LABS: CREATININE SERUM 0.76 MG/DL (0.60-1.30)
[2021-07-10] MEDS: ONDANSETRON 4 MG/2 ML (SDV) Z0FRAN IVP PRN ×3 (08:00→19:29)
--- NOTE | 2021-07-10 09:01 | History & Physical-Hospitalist ---
History of Present Illness HPI/Chief Complaint Initial Comments Patient is a 36-year-old male with a history of type 1 diabetes, marijuana use who presents ED with diffuse abdominal pain, burning in chest, burning in his legs. Symptoms started 1 hour ago when he woke up. Took his blood sugar that read 480. Patient states he has been vomiting over the past 2 days. No diarrhea, cough. Reports burning sensation in his chest. Generalized abdominal discomfort. Denies of any hematemesis. Headache, dizziness today. History of DKA. Last use of marijuana was 3 days ago. He was seen here yesterday in the ER diagnosis with cannabis hyperemesis syndrome. Reports frequent urination. Patient took 5 units of regular insulin and 30 units of Levemir before arrival. Upon my arrival the patient's major complaint was generalized abdominal pain worse with any movement. Denied chills or fever but also noted body aches and pains and a low-grade headache. On questioning he reports that he had not been recently Covid tested as not aware of any potential exposures. He denies diarrhea and lipase level emergency room was normal. He has had a cholecystectomy in the past. He was feeling better compared to last night except for the abdominal pain. Date Seen 07/10/21 Time Seen by a Provider: 07:30 Attending Physician Minor Carmona MD PCP [facility] Referring Physician Date of Admission Jul 09, 2021 at 21:07 Home Medications & Allergies Home Medications Reviewed patient Home Medication Reconciliation performed by pharmacy medication reconciliations weatherseal technician and/or nursing. Patients Allergies have been reviewed. Allergies Allergies Coded Allergies tramadol (Verified Adverse Reaction, Mild, N/V, 12/21/14) Past Muglrxu-Sfhwje-Ypzlvc Hx Patient Social History Tobacco Use?: Yes Tobacco type used: Cigarettes Smoking Status: Former Smoker Smokeless Tobacco Frequency: Never a User Use of E-Cig and/or Vaping dev: No Use of E-Cig and/or Vaping Abisai: Never a User Substance use?: Yes Substance type: Marijuana Additional substance use comme: HX METH USE Alcohol Use?: No Pt feels they are or have been: No Immunizations Up To Date Date of Influenza Vaccine: Apr 08, 2021 First/Initial COVID19 Vaccinat: August 2020 Second COVID19 Vaccination Kumar: September 2020 Tetanus Booster (TDap): Less Than 5 Years Hepatitis A: No Hepatitis B: No Date of Pneumonia Vaccine: Aug 27, 2011 Seasonal Allergies Seasonal Allergies: No Current Status Advance Directives: No Communicates: Verbally Primary Language: Latvian Preferred Spoken Language: Latvian Implanted or Applied Medical D: None Past Medical History Surgeries: Abdominal, Gallbladder COPD Currently Using CPAP: No Currently Using BIPAP: No Hypertension Neuropathy Sexually Transmitted Disease: No HIV/AIDS: No Kidney Infection Gastroesophageal Reflux, Liver Disease/Jaundice, Esophagitis Arthritis, Scoliosis, Chronic Back Pain Diabetes, Insulin dep Hearing Impairment: Denies Depression Blood Disorders: No Adverse Reaction/Blood Tranf: No Past Medical History 1. DM, insulin requiring, not controlled, not compliant 2. Hypertension- was previously prescribed medications but never filled 3. Alcoholism- with previous heavy daily alcohol use- reports stopped drinking 4. 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 Tobaccoism 6. GERD 7. Non-compliance- pt. is chronically non-compliant with his medications and follow up 8. Peipheral Neuropathy Past Surgical History 1. None Family Medical History Alcoholism 19 FATHER G8 BROTHER Congenital heart disease 19 FATHER Family history: Cardiovascular disease 19 FATHER, Onset:40's - 50 Family history: Diabetes mellitus 19 MOTHER Family history: Hypertension 19 FATHER Heart disease 19 FATHER History of - respiratory disease 19 FATHER History of drug abuse 19 MOTHER Hypercholesterolemia 19 FATHER Myocardial infarction 19 FATHER Seizure disorder 19 FATHER No Family History of: Abdominal aortic aneurysm [place]'s disease Cancer Congestive heart failure Cystic fibrosis Dementia Dysphagia Family history: Allergy Family history: Alzheimer's disease Family history: Arthritis Family history: Asthma Family history: Breast disease Family history: Coronary thrombosis Family history: Gastrointestinal disease Family history: Glaucoma Family history: Osteoporosis Family history: Thyroid disorder Headache Hearing loss Hereditary disease History of - anemia History of - disorder Human immunodeficiency virus (HIV) seropositivity Infertile Kidney disease Malignant neoplasm of lung Parkinson's disease Prostate cancer Psychotic disorder Stroke Tuberculosis Visual impairment No Pertinent Family Hx Review of Systems Constitutional: see HPI Physical Exam Physical Exam Vital Signs Vital Signs - First Documented 07/09/21 07/10/21 19:54 06:15 Temp 36.3 Pulse 121 Resp 20 B/P (MAP) 155/94 (114) Pulse Ox 100 O2 Delivery Room Air O2 Flow Rate 2.00 Capillary Refill : Less Than 3 Seconds Height, Weight, BMI Height: 5'10.00" Weight: 240lbs. 0oz. 108.648203xd; 28.18 BMI Method:Stated General Appearance: Mild Distress Respiratory: Chest Non Tender, Lungs Clear, Normal Breath Sounds, No Accessory Muscle Use, No Respiratory Distress, Other (Unremarkable auscultatory examination including left lung base where there was a questionable infiltrate. Additional history the patient had some mild cough nonproductive) Cardiovascular: Regular Rate, Rhythm, No Edema, No Gallop, No JVD, No Murmur, Normal Peripheral Pulses Gastrointestinal: No Organomegaly, Soft, Other (Epigastric and bilateral upper quadrant abdominal pain to palpation with guarding no rebound abdomen is soft nondistended) Extremity: Normal Capillary Refill, Normal Inspection, Normal Range of Motion, Non Tender, No Calf Tenderness, No Pedal Edema Results Results/Procedures Labs Laboratory Tests 07/09/21 20:00 07/09/21 23:27 07/10/21 02:32 07/10/21 06:50 Patient resulted labs reviewed. Assessment/Plan Admission Diagnosis A/P 1. DKA acidosis moderating blood sugars coming down continue insulin drip and electrolyte replacement. 2. Fluid sounding symptoms which may be the trigger for #1 could not find any evidence for flu or Covid testing so we will that this will be performed no evidence for pneumonia on physical examination. 3. History of hypertension we will be holding antitensive medication unless blood pressure becomes severely elevated. 4. Abdominal pain no major red flag symptoms or findings likely related to DKA although viral illness may be contributing as well. Lipase levels normal history of past cholecystectomy. Await Covid and influenza testing. Vomiting with secondary abdominal wall pain may be a factor as well. Admission Status: Inpatient Order (span 2 midnights) Reason for Inpatient Admission: See admission diagnosis MINOR CARMONA MD Jul 10, 2021 09:01
[2021-07-10] MEDS: HYDROmorphone 2 MG/ML VIAL (DILAUDID) IV PRN ×4 (09:04→23:28)
[2021-07-10] MEDS: GABAPENTIN 400 MG (NEURONTIN) CAP PO SCH ×3 (09:04→20:54)
[2021-07-10 15:59] LABS: POTASSIUM 4.1 MMOL/L (3.6-5.0)
[2021-07-10 16:00] LABS: CALCIUM 7.9 MG/DL (8.5-10.1)
[2021-07-10 16:05] LABS: CREATININE SERUM 0.92 MG/DL (0.60-1.30)
[2021-07-10] MEDS ORDERED: inSUlin ASPART (NovoLOG) 1 UNIT/0.01 ML (CHARGE PER UNIT) SC ONE (17:00)
[2021-07-10] MEDS ORDERED: inSUlin ASPART (NovoLOG) 1 UNIT/0.01 ML (CHARGE PER UNIT) ONE (17:13)
[2021-07-10] MEDS: inSUlin ASPART (NovoLOG) 1 UNIT/0.01 ML (CHARGE PER UNIT) SC SCH (17:18)
[2021-07-11] MEDS: HYDROmorphone 2 MG/ML VIAL (DILAUDID) IV PRN ×2 (04:17→08:18)
[2021-07-11] MEDS: ONDANSETRON 4 MG/2 ML (SDV) Z0FRAN IVP PRN (04:17)
[2021-07-11 04:57] LABS: BASOPHILS % (AUTO) 1 % (0-10); EOSINOPHILS # (AUTO) 0.2 10^3/uL (0.0-0.3); EOSINOPHILS % (AUTO) 2 % (0-10); HEMATOCRIT 39 % (40-54); LYMPHOCYTES # (AUTO) 3.4 10^3/uL (1.0-4.0); LYMPHOCYTES % (AUTO) 43 % (12-44); MEAN CORPUSCULAR HEMOGLOBIN 29 pg (25-34); MEAN CORPUSCULAR HGB CONC 34 g/dL (32-36); MEAN CORPUSCULAR VOLUME 87 fL (80-99); MEAN PLATELET VOLUME 10.1 fL (9.0-12.2); MONOCYTES # (AUTO) 0.5 10^3/uL (0.0-1.0); MONOCYTES % (AUTO) 7 % (0-12); NEUTROPHILS # (AUTO) 3.7 10^3/uL (1.8-7.8); NEUTROPHILS % (AUTO) 47 % (42-75); PLATELET COUNT 236 10^3/uL (130-400); WHITE BLOOD COUNT 7.9 10^3/uL (4.3-11.0)
[2021-07-11 05:19] LABS: ALBUMIN 3.1 GM/DL (3.2-4.5); POTASSIUM 3.7 MMOL/L (3.6-5.0)
[2021-07-11 05:20] LABS: CALCIUM 8.1 MG/DL (8.5-10.1)
[2021-07-11 05:23] LABS: BILIRUBIN,TOTAL 0.5 MG/DL (0.1-1.0)
[2021-07-11 05:25] LABS: CREATININE SERUM 0.7 MG/DL (0.60-1.30); PHOSPHORUS 3.8 MG/DL (2.3-4.7)
[2021-07-11 05:28] LABS: MAGNESIUM 1.7 MG/DL (1.6-2.4)
[2021-07-11] MEDS: GABAPENTIN 400 MG (NEURONTIN) CAP PO SCH (08:00)
[2021-07-11] MEDS: inSUlin ASPART (NovoLOG) 1 UNIT/0.01 ML (CHARGE PER UNIT) SC SCH (08:18)
--- NOTE | 2021-07-11 10:27 | Discharge Summary ---
Diagnosis/Chief Complaint Date of Admission Jul 09, 2021 at 21:07 Date of Discharge 07/11/21 Admission Diagnosis Admission Diagnosis DKA Abdominal pain Nausea and Vomiting Discharge Diagnosis See Above Discharge Summary-Simple/Stand Consultations Discharge Physical Examination Allergies: Coded Allergies: tramadol (Verified Adverse Reaction, Mild, N/V, 12/21/14) Vitals & I&Os Vital Sign - Last 12Hours Date Time Temp Pulse Resp B/P (MAP) Pulse Ox O2 Delivery O2 Flow Rate FiO2 07/11/21 10:00 83 15 90/53 98 Room Air 07/11/21 07:57 36.8 07/11/21 04:00 2.00 Intake and Output 07/11/21 00:00 Intake Total 1930 ml Output Total 1450 ml Balance 480 ml General Appearance: Alert, Oriented X3, Cooperative, No Acute Distress Respiratory: Clear to Auscultation, Normal Air Movement Cardiovascular: Regular Rate, No Murmurs Abdominal: Normal Bowel Sounds, Soft, Other (mild epigastric ttp) Extremities: No Edema, No Tenderness/Swelling Skin: No Rashes Neuro: Normal Speech, Strength at 5/5 X4 Ext, Sensation Intact, Cranial Nerves 3-12 NL Psych/Mental Status: Mental Status NL, Mood NL Hospital Course Was the Problem List Reviewed?: Yes See final discharge diagnosis. Discussion & Recommendations 36 yo M with multiple admissions for DKA that presents with DKA and abdominal pain. Patient states that he started to have the pain and nausea several days ago. Denies missing any doses of insulin. He was transitioned to subcutanous insulin last night. Tolerated PO diet and pain is improving. Will have close f.u with PCP later this week. Discharge Condition at discharge stable Instructions to patient/family Please see electronic discharge instructions given to patient. Discharge Medications Reviewed and agree with Discharge Medication list on patient's Discharge Instruction sheet Copy Copies To 1: HALEY Palomo HOLLY R MD Jul 11, 2021 10:27
[2021-07-11] MEDS ORDERED: INSU100V5 SQ (10:28)
--- NOTE | 2021-07-11 10:29 | Discharge Summary ---
Discharge [facility] Reconcile Patient Problems Problems Reviewed?: Yes Discharge Medications New, Converted or Re-Newed RX: Other (No new meds) New Medications: Insulin Determir (Levemir) 1,000 Units/10 Ml Soln 40 UNIT SQ HS, #30 EA Continued Medications: Acetaminophen/Diphenhydramine (Tylenol Pm Ex-Strength Caplet) 1 Each Tablet 1 EACH PO HS PRN for SLEEP, TAB Gabapentin (Gabapentin) 800 Mg Tablet 800 MG PO TID, TAB Insulin Aspart (Novolog Flexpen) 300 Units/3 Ml Solution 5 UNITS SQ AC, EA Lisinopril (Lisinopril) 10 Mg Tablet 10 MG PO DAILY, TAB Pantoprazole Sodium (Pantoprazole Sodium) 40 Mg Tablet.dr 40 MG PO DAILY, TAB Prochlorperazine Maleate (Compazine) 10 Mg Tablet 10 MG PO TID PRN for NAUSEA/VOMITING, #14 TAB Sucralfate (Carafate) 1 Gm Tablet 1 GM PO ACHS, TAB Discontinued Medications: Insulin Detemir (Levemir Flextouch) 100 Unit/1 Ml Insuln.pen 35-40 UNIT SQ HS, EA Patient Instructions Goal/Follow Up Appt: Teodora with Wendi Valdes later this week Activity & Diet Discharge Diet: ADA Diet Activity as Tolerated: Yes ALFRED MORGAN MD Jul 11, 2021 10:29
[2021-07-11] MEDS ORDERED: ONDA8TAB13 PO (10:32)
== END 2021-07-11 11:20 | disposition home or self-care (01) | DRG 639 ==
LOC: EDUNIT# 19:46 → ER 19:52 → ICU 21:07
PROVIDERS: ADMIT Internal Medicine; ATTEND Family Medicine
DX: E10.10 Type 1 diabetes mellitus with ketoacidosis without coma (principal); E10.42 Type 1 diabetes mellitus with diabetic polyneuropathy; E86.0 Dehydration; F12.90 Cannabis use, unspecified, uncomplicated; J44.9 Chronic obstructive pulmonary disease, unspecified; I10 Essential (primary) hypertension; K21.9 Gastro-esophageal reflux disease without esophagitis; F32.A Depression, unspecified; Z20.822 Contact with and (suspected) exposure to COVID-19; Z91.14 Patient's other noncompliance with medication regimen; M19.91 Primary osteoarthritis, unspecified site; Z79.4 Long term (current) use of insulin; Z87.891 Personal history of nicotine dependence; Z88.5 Allergy status to narcotic agent; Z83.3 Family history of diabetes mellitus; Z81.3 Family history of other psychoactive substance abuse and dependence; Z82.49 Family history of ischemic heart disease and other diseases of the circulatory system
CPT/HCPCS: 36415; 71045; 80048; 80053; 80306; 81000; 82010; 82150; 82805; 82947; 83036; 83605; 83690; 83735; 84100; 84484; 85025; 85027; 87636; 93005; 99291

== ENCOUNTER 2021-07-23 14:31 | Emergency (ER) | payer SELFPAY ==
[~2021-07-23] VITALS: Ht 175 cm; Wt 90.7 kg
[2021-07-23] MEDS ORDERED: FAMOTIDINE 20MG/2ML IV (PEPCID) IV STA (14:44)
[2021-07-23] MEDS ORDERED: NS IV 1000 ML 1,000 ML IV SCH (14:45)
[2021-07-23] MEDS ORDERED: ANTACID SUSP 30 ML UDC (MYLANTA) PO ONE (14:45)
[2021-07-23] MEDS ORDERED: NS IV 1000 ML 1,000 ML IV ONE (14:45)
[2021-07-23] MEDS ORDERED: PANTOPRAZOLE 40 MG (PROTONIX) VIAL IV ONE (14:45)
[2021-07-23] MEDS ORDERED: LIDOCAINE 2% VISCOUS 15 ML UDC PO ONE (14:45)
--- NOTE | 2021-07-23 14:51 | ED GI ---
General Chief Complaint: Abdominal/GI Problems Stated Complaint: N/V Source of Information: Patient Exam Limitations: No Limitations History of Present Illness Date Seen by Provider: Jul 23, 2021 Time Seen by Provider: 14:32 Initial Comments Patient presents to the ER by private conveyance chief complaint that since this morning has been having fatigue, sweats, nausea, vomiting and epigastric abdominal pain. He has a history of cannabinoid hyperemesis syndrome, type 1 diabetes and peptic ulcer disease. Dr. PEARSON did endoscopy last August 2020 with biopsy showing moderate to severe gastritis and antral erosion. Stage II reflux esophagitis. Patient has not been able to keep anything down for fluids. He ran out of nausea medicine. He did take an oxycodone which seemed to help his pain come down some. He has been sleeping most of the day. He says his sugar was in the 240s last night and he has not checked it today. No fevers chills diarrhea dysuria or frequency of urine. No history of pancreatitis. He quit drinking years ago. He says he has not used cannabis in the past 2 weeks. Allergies and Home Medications Allergies Coded Allergies: tramadol (Verified Adverse Reaction, Mild, N/V, 12/21/14) Patient Home Medication List Home Medication List Reviewed: Yes Acetaminophen/Diphenhydramine (Tylenol Pm Ex-Strength Caplet) 1 Each Tablet, 1 EACH PO HS PRN for SLEEP, (Reported) Entered as Reported by: ANTHONY BLAKELY on 05/02/21 1334 Gabapentin (Gabapentin) 800 Mg Tablet, 800 MG PO TID, (Reported) Entered as Reported by: SAMRA MCCORD on 08/24/20 1424 Insulin Aspart (Novolog Flexpen) 300 Units/3 Ml Solution, 5 UNITS SQ AC, (Reported) Entered as Reported by: SAMRA MCCORD on 06/07/21 0935 Insulin Determir (Levemir) 1,000 Units/10 Ml Soln, 40 UNIT SQ HS Prescribed by: ALFRED MORGAN on 07/11/21 1028 Lisinopril (Lisinopril) 10 Mg Tablet, 10 MG PO DAILY, (Reported) Entered as Reported by: SAMRA MCCORD on 06/07/21 0935 Ondansetron (Ondansetron Odt) 8 Mg Tab.rapdis, 8 MG PO Q6H Prescribed by: ALFRED MORGAN on 07/11/21 1032 Ondansetron (Ondansetron Odt) 4 Mg Tab.rapdis, 4 MG PO Q6H PRN for NAUSEA/VOMITING Prescribed by: OTTONIEL ARMENTA on 07/23/21 1530 Pantoprazole Sodium (Pantoprazole Sodium) 40 Mg Tablet.dr, 40 MG PO DAILY, (Reported) Entered as Reported by: SAMRA MCCORD on 06/07/21 0935 Prochlorperazine Maleate (Compazine) 10 Mg Tablet, 10 MG PO TID PRN for NAUSEA/VOMITING Prescribed by: ZACHERY BAKER on 07/08/21 1246 Promethazine HCl (Promethazine Tablet) 25 Mg Tablet, 25 MG PO Q6H PRN for NAUSEA/VOMITING Prescribed by: OTTONIEL ARMENTA on 07/23/21 1530 Sucralfate (Carafate) 1 Gm Tablet, 1 GM PO ACHS, (Reported) Entered as Reported by: SAMRA MCCORD on 06/07/21 0935 Review of Systems Review of Systems Constitutional: No chills; diaphoresis; No fever; malaise EENTM: No Blurred Vision, No Double Vision Respiratory: Denies Cough, Denies Shortness of Air Cardiovascular: Denies Chest Pain, Denies Lightheadedness Gastrointestinal: See HPI, Abdominal Pain; Denies Constipated, Denies Diarrhea, Denies Difficulty Swallowing; Nausea, Poor Fluid Intake, Vomiting Genitourinary: Denies Burning, Denies Drainage Musculoskeletal: No back pain, No joint pain All Other Systems Reviewed Negative Unless Noted: Yes Past Crhfqtg-Iuzdco-Olrcvc Hx Patient Social History Tobacco Use?: No Use of E-Cig and/or Vaping dev: No Substance use?: Yes Substance type: Marijuana Alcohol Use?: No Immunizations Up To Date Tetanus Booster (TDap): Unknown First/Initial COVID19 Vaccinat: August 2020 Second COVID19 Vaccination Kumar: September 2020 Third COVID19 Vaccination Date: APRIL 2021 Seasonal Allergies Seasonal Allergies: No Past Medical History Surgery/Hospitalization HX: T1DM Surgeries: Yes Abdominal, Gallbladder Respiratory: Yes (copd dx by patient) COPD Currently Using CPAP: No Currently Using BIPAP: No Cardiac: Yes Hypertension Neurological: Yes Neuropathy Reproductive Disorders: No Sexually Transmitted Disease: No HIV/AIDS: No Genitourinary: Yes Kidney Infection Gastrointestinal: Yes (ELEVATED LIVER ENZYMES, Hep A) Gastroesophageal Reflux, Liver Disease/Jaundice, Esophagitis Musculoskeletal: Yes Arthritis, Scoliosis, Chronic Back Pain Endocrine: Yes (Type I) Diabetes, Insulin dep HEENT: No Hearing Impairment: Denies Cancer: No Psychosocial: Yes (POLYSUBSTANCE ABUSE) Depression Integumentary: No Blood Disorders: No Adverse Reaction/Blood Tranf: No Family Medical History Alcoholism 19 FATHER G8 BROTHER Congenital heart disease 19 FATHER Family history: Cardiovascular disease 19 FATHER, Onset:40's - 50 Family history: Diabetes mellitus 19 MOTHER Family history: Hypertension 19 FATHER Heart disease 19 FATHER History of - respiratory disease 19 FATHER History of drug abuse 19 MOTHER Hypercholesterolemia 19 FATHER Myocardial infarction 19 FATHER Seizure disorder 19 FATHER No Family History of: Abdominal aortic aneurysm Markos's disease Cancer Congestive heart failure Cystic fibrosis Dementia Dysphagia Family history: Allergy Family history: Alzheimer's disease Family history: Arthritis Family history: Asthma Family history: Breast disease Family history: Coronary thrombosis Family history: Gastrointestinal disease Family history: Glaucoma Family history: Osteoporosis Family history: Thyroid disorder Headache Hearing loss Hereditary disease History of - anemia History of - disorder Human immunodeficiency virus (HIV) seropositivity Infertile Kidney disease Malignant neoplasm of lung Parkinson's disease Prostate cancer Psychotic disorder Stroke Tuberculosis Visual impairment No Pertinent Family Hx Physical Exam Vital Signs Vital Signs - First Documented 07/23/21 14:51 Temp 35.9 Pulse 106 Resp 18 B/P (MAP) 131/101 (111) Pulse Ox 100 Capillary Refill : Height/Weight/BMI Height: 5'10.00" Weight: 240lbs. 0oz. [id number]; 28.18 BMI Method:Stated General Appearance: WD/WN, moderate distress HEENT: PERRL/EOMI, pharynx normal Neck: full range of motion, supple, normal inspection Respiratory: lungs clear, normal breath sounds, no respiratory distress, no accessory muscle use Cardiovascular: normal peripheral pulses, regular rate, rhythm Peripheral Pulses: 2+ Radial Pulses (R), 2+ Radial Pulses (L) Gastrointestinal: normal bowel sounds, soft, no organomegaly, guarding (Epigastric region), tenderness (Mild to moderate tenderness on palpation and auscultation of the epigastric region.) Extremities: normal inspection, normal capillary refill Neurologic/Psychiatric: alert, normal mood/affect, oriented x 3 Skin: normal color, warm/dry Progress/Results/Core Measures Results/Orders Lab Results Laboratory Tests Test 07/23/21 14:49 07/23/21 14:51 Range/Units White Blood Count 12.5 H 4.3-11.0 10^3/uL Red Blood Count 5.05 4.30-5.52 10^6/uL Hemoglobin 14.8 13.3-17.7 g/dL Hematocrit 44 40-54 % Mean Corpuscular Volume 87 80-99 fL Mean Corpuscular Hemoglobin 29 25-34 pg Mean Corpuscular Hemoglobin Concent 34 32-36 g/dL Red Cell Distribution Width 12.7 10.0-14.5 % Platelet Count 250 130-400 10^3/uL Mean Platelet Volume 8.6 L 9.0-12.2 fL Immature Granulocyte % (Auto) 1 % Neutrophils (%) (Auto) 78 H 42-75 % Lymphocytes (%) (Auto) 15 12-44 % Monocytes (%) (Auto) 4 0-12 % Eosinophils (%) (Auto) 2 0-10 % Basophils (%) (Auto) 1 0-10 % Neutrophils # (Auto) 9.8 H 1.8-7.8 10^3/uL Lymphocytes # (Auto) 1.9 1.0-4.0 10^3/uL Monocytes # (Auto) 0.5 0.0-1.0 10^3/uL Eosinophils # (Auto) 0.3 0.0-0.3 10^3/uL Basophils # (Auto) 0.1 0.0-0.1 10^3/uL Immature Granulocyte # (Auto) 0.1 0.0-0.1 10^3/uL Sodium Level 137 135-145 MMOL/L Potassium Level 4.0 3.6-5.0 MMOL/L Chloride Level 100 98-107 MMOL/L Carbon Dioxide Level 24 21-32 MMOL/L Anion Gap 13 5-14 MMOL/L Blood Urea Nitrogen 17 7-18 MG/DL Creatinine 0.83 0.60-1.30 MG/DL Estimat Glomerular Filtration Rate 118 BUN/Creatinine Ratio 20 Glucose Level 211 H 70-105 MG/DL Calcium Level 9.4 8.5-10.1 MG/DL Corrected Calcium 9.2 8.5-10.1 MG/DL Total Bilirubin 1.2 H 0.1-1.0 MG/DL Aspartate Amino Transf (AST/SGOT) 20 5-34 U/L Alanine Aminotransferase (ALT/SGPT) 34 0-55 U/L Alkaline Phosphatase 84 40-136 U/L C-Reactive Protein High Sensitivity 0.03 0.00-0.50 MG/DL Total Protein 7.2 6.4-8.2 GM/DL Albumin 4.2 3.2-4.5 GM/DL Lipase 5 L 8-78 U/L Urine Color YELLOW Urine Clarity CLEAR Urine pH 8.0 5-9 Urine Specific [place] 1.020 1.016-1.022 Urine Protein 1+ H NEGATIVE Urine Glucose (UA) NEGATIVE NEGATIVE Urine Ketones 2+ H NEGATIVE Urine Nitrite NEGATIVE NEGATIVE Urine Bilirubin 1+ H NEGATIVE Urine Urobilinogen 1.0 < = 1.0 MG/DL Urine Leukocyte Esterase NEGATIVE NEGATIVE Urine RBC (Auto) NEGATIVE NEGATIVE Urine RBC 0-2 /HPF Urine WBC 5-10 H /HPF Urine Squamous Epithelial Cells NONE /HPF Urine Renal Epithelial Cells NONE /HPF Urine Crystals NONE /LPF Urine Bacteria NEGATIVE /HPF Urine Casts NONE /LPF Urine Mucus LARGE H /LPF Urine Culture Indicated NO My Orders Orders - OTTONIEL ARMENTA Ed Iv/Invasive Line Start (07/23/21 14:44) Ns Iv 1000 Ml (Sodium Chloride 0.9%) (07/23/21 14:45) Ns Iv 1000 Ml (Sodium Chloride 0.9%) (07/23/21 14:45) Cbc With Automated Diff (07/23/21 14:44) Comprehensive Metabolic Panel (07/23/21 14:44) Hs C Reactive Protein (07/23/21 14:44) Lipase (07/23/21 14:44) Ua Culture If Indicated (07/23/21 14:44) Lidocaine 2% Viscous 15 Ml (Xylocaine Vi (07/23/21 14:45) Antacid Suspension (Mylanta Suspension (07/23/21 14:45) Famotidine Injection (Pepcid Injection) (07/23/21 14:44) Pantoprazole Injection (Protonix Injecti (07/23/21 14:45) Accucheck Stat ONCE (07/23/21 14:44) Promethazine Injection (Phenergan Injec (07/23/21 15:30) Diphenhydramine Injection (Benadryl Inje (07/23/21 15:30) Medications Given in ED Current Medications Medications Dose Ordered Sig/Fer Route Start Time Stop Time Status Last Admin Dose Admin Al Hydrox/Mg Hydrox/Simethicone 30 ml ONCE ONCE PO 07/23/21 14:45 07/23/21 14:47 DC 07/23/21 15:06 30 ML Lidocaine HCl 15 ml ONCE ONCE PO 07/23/21 14:45 07/23/21 14:47 DC 07/23/21 15:05 15 ML Pantoprazole 40 mg ONCE ONCE IV 07/23/21 14:45 07/23/21 14:47 DC 07/23/21 15:06 40 MG Sodium Chloride 1,000 ml @ 0 mls/hr Q0M ONCE IV 07/23/21 14:45 07/23/21 14:47 DC 07/23/21 15:06 0 MLS/HR Vital Signs/I&O 07/23/21 14:51 Temp 35.9 Pulse 106 Resp 18 B/P (MAP) 131/101 (111) Pulse Ox 100 Progress Progress Note #1: Time: 14:51 Progress Note Antacids for his epigastric pain given his history. We will check some labs and give him some Zofran for nausea as well as a couple liters of fluid and check a urine for ketones. Progress Note #2: Time: 15:25 Progress Note Patient is feeling significantly better. His pain is improving after the GI cocktail. His nausea has improved. He would like some Phenergan so we will give him some Benadryl and but the Phenergan and his fluids. He still has 1-1/2 L to go. Departure Impression Primary Impression: Gastritis Qualified Codes: K29.00 - Acute gastritis without bleeding Disposition: HOME, SELF-CARE Condition: Stable Departure-Patient Inst. Decision time for Depature: 15:44 Referrals: [facility] (PCP) Primary Care Physician [facility] (Family) Primary Care Physician Patient Instructions: Gastritis (DC) Add. Discharge Instructions: Tums, Rolaids, Maalox, Mylanta as necessary for pain. Tylenol and ibuprofen as necessary for pain. Continue taking your antacids and sucralfate. Follow-up with Dr. PEARSON as necessary for reexamination. Zofran 1 tablet every 6 hours as necessary for nausea or vomiting. Phenergan 1 tablet in addition to 25 mg Benadryl every 6 hours as necessary for breakthrough nausea or vomiting. All discharge instructions reviewed with patient and/or family. Voiced understanding. Scripts Promethazine HCl (Promethazine Tablet) 25 Mg Tablet 25 MG PO Q6H PRN for NAUSEA/VOMITING, #15 TAB 0 Refills Prov: OTTONIEL ARMENTA 07/23/21 Ondansetron (Ondansetron Odt) 4 Mg Tab.rapdis 4 MG PO Q6H PRN for NAUSEA/VOMITING, #15 TAB 0 Refills Prov: OTTONIEL ARMENTA 07/23/21 Work/School Note: Work Release Form Date Seen in the Emergency Department: Jul 23, 2021 Return to Work: Jul 25, 2021 Restrictions: No Restrictions OTTONIEL ARMENTA Jul 23, 2021 14:51
[2021-07-23 14:54] LABS: BASOPHILS # (AUTO) 0.1 10^3/uL (0.0-0.1); BASOPHILS % (AUTO) 1 % (0-10); EOSINOPHILS # (AUTO) 0.3 10^3/uL (0.0-0.3); EOSINOPHILS % (AUTO) 2 % (0-10); HEMATOCRIT 44 % (40-54); HEMOGLOBIN 14.8 g/dL (13.3-17.7); LYMPHOCYTES # (AUTO) 1.9 10^3/uL (1.0-4.0); LYMPHOCYTES % (AUTO) 15 % (12-44); MEAN CORPUSCULAR HEMOGLOBIN 29 pg (25-34); MEAN CORPUSCULAR HGB CONC 34 g/dL (32-36); MEAN CORPUSCULAR VOLUME 87 fL (80-99); MEAN PLATELET VOLUME 8.6 fL (9.0-12.2); MONOCYTES # (AUTO) 0.5 10^3/uL (0.0-1.0); MONOCYTES % (AUTO) 4 % (0-12); NEUTROPHILS # (AUTO) 9.8 10^3/uL (1.8-7.8); NEUTROPHILS % (AUTO) 78 % (42-75); PLATELET COUNT 250 10^3/uL (130-400); WHITE BLOOD COUNT 12.5 10^3/uL (4.3-11.0)
[2021-07-23 14:55] LABS: CLARITY,URINE CLEAR; COLOR,URINE YELLOW; GLUCOSE, URINE (UA) NEGATIVE (NEGATIVE); KETONES,URINE 2+ (NEGATIVE); LEUKOCYTE ESTERASE ,URINE NEGATIVE (NEGATIVE); NITRITE,URINE NEGATIVE (NEGATIVE); PROTEIN,URINE 1+ (NEGATIVE)
[2021-07-23 15:05] LABS: ALBUMIN 4.2 GM/DL (3.2-4.5)
[2021-07-23 15:06] LABS: CALCIUM 9.4 MG/DL (8.5-10.1)
[2021-07-23 15:06] LABS: BACTERIA,URINE NEGATIVE /HPF; RBC,URINE 0-2 /HPF
[2021-07-23 15:07] LABS: BILIRUBIN,URINE 1+ (NEGATIVE)
[2021-07-23 15:08] LABS: TOTAL PROTEIN 7.2 GM/DL (6.4-8.2)
[2021-07-23 15:09] LABS: BILIRUBIN,TOTAL 1.2 MG/DL (0.1-1.0)
[2021-07-23 15:11] LABS: CREATININE SERUM 0.83 MG/DL (0.60-1.30)
[2021-07-23] MEDS ORDERED: PROMETHAZINE INJ 25 MG/ML (PHENERGAN) AMP IVP ONE (15:30)
[2021-07-23] MEDS ORDERED: diphenhydrAMINE 50 MG/ML INJ (BENADRYL) IVP ONE (15:30)
[2021-07-23] MEDS ORDERED: ONDA4TAB11 PO (15:30)
[2021-07-23] MEDS ORDERED: PROM25TA14 PO (15:30)
[2021-07-23 16:24] VITALS: BP 164/92
== END 2021-07-23 16:24 | disposition home or self-care (01) ==
LOC: EDUNIT# 14:31 → ER 14:33
DX: K29.00 Acute gastritis without bleeding (principal); E10.40 Type 1 diabetes mellitus with diabetic neuropathy, unspecified; I10 Essential (primary) hypertension; J44.9 Chronic obstructive pulmonary disease, unspecified; K21.9 Gastro-esophageal reflux disease without esophagitis; G89.29 Other chronic pain; M54.9 Dorsalgia, unspecified; F32.A Depression, unspecified; Z87.11 Personal history of peptic ulcer disease; Z79.899 Other long term (current) drug therapy
CPT/HCPCS: 36415; 80053; 81000; 83690; 85025; 86141

== ENCOUNTER 2021-07-23 22:50 | Emergency (ER) | payer SELFPAY ==
[~2021-07-23 22:50] MED LIST changes: +PROM25TA14 PO
[2021-07-24 01:57] LABS: BILIRUBIN,URINE NEGATIVE (NEGATIVE); CLARITY,URINE CLEAR; COLOR,URINE YELLOW; GLUCOSE, URINE (UA) 2+ (NEGATIVE); KETONES,URINE 3+ (NEGATIVE); LEUKOCYTE ESTERASE ,URINE NEGATIVE (NEGATIVE); NITRITE,URINE NEGATIVE (NEGATIVE); PROTEIN,URINE TRACE (NEGATIVE)
[2021-07-24] MEDS ORDERED: NS IV 1000 ML 1,000 ML IV SCH (02:00)
[2021-07-24] MEDS ORDERED: ONDANSETRON 4 MG/2 ML (SDV) Z0FRAN IVP ONE (02:00)
[2021-07-24] MEDS ORDERED: PANTOPRAZOLE 40 MG (PROTONIX) VIAL IV ONE (02:00)
[2021-07-24 02:03] LABS: BACTERIA,URINE NEGATIVE /HPF; SQUAMOUS EPITHELIAL CELL,UR 0-2 /HPF
[2021-07-24 02:07] LABS: AMPHETAMINE SCREEN, URINE NEGATIVE (NEGATIVE); BARBITURATE SCREEN URINE NEGATIVE (NEGATIVE); BENZODIAZEPINES SCREEN URINE NEGATIVE (NEGATIVE); CANNABINOID SCREEN, URINE POSITIVE (NEGATIVE); COCAINE SCREEN URINE NEGATIVE (NEGATIVE); METHADONE STAT NEGATIVE (NEGATIVE); METHAMPHETAMINE SCREEN URINE S NEGATIVE (NEGATIVE); OPIATE SCREEN URINE POSITIVE (NEGATIVE); OXYCODONE STAT NEGATIVE (NEGATIVE); PROPOXYPHENE STAT NEGATIVE (NEGATIVE); TRICYCLIC ANTIDEPRESSANTS SCRE NEGATIVE (NEGATIVE)
[2021-07-24 02:51] LABS: BASOPHILS % (AUTO) 0 % (0-10); EOSINOPHILS % (AUTO) 0 % (0-10); HEMATOCRIT 41 % (40-54); HEMOGLOBIN 13.8 g/dL (13.3-17.7); LYMPHOCYTES # (AUTO) 1.2 10^3/uL (1.0-4.0); LYMPHOCYTES % (AUTO) 11 % (12-44); MEAN CORPUSCULAR HEMOGLOBIN 29 pg (25-34); MEAN CORPUSCULAR HGB CONC 34 g/dL (32-36); MEAN CORPUSCULAR VOLUME 86 fL (80-99); MEAN PLATELET VOLUME 8.9 fL (9.0-12.2); MONOCYTES # (AUTO) 0.3 10^3/uL (0.0-1.0); MONOCYTES % (AUTO) 2 % (0-12); NEUTROPHILS # (AUTO) 9.9 10^3/uL (1.8-7.8); NEUTROPHILS % (AUTO) 86 % (42-75); PLATELET COUNT 251 10^3/uL (130-400); WHITE BLOOD COUNT 11.5 10^3/uL (4.3-11.0)
[2021-07-24 02:57] LABS: ALBUMIN 4.3 GM/DL (3.2-4.5); POTASSIUM 3.8 MMOL/L (3.6-5.0)
[2021-07-24 02:58] LABS: CALCIUM 9.3 MG/DL (8.5-10.1)
[2021-07-24 03:00] LABS: TOTAL PROTEIN 7.2 GM/DL (6.4-8.2)
[2021-07-24 03:01] LABS: BILIRUBIN,TOTAL 1.3 MG/DL (0.1-1.0)
[2021-07-24 03:03] LABS: CREATININE SERUM 0.82 MG/DL (0.60-1.30)
[2021-07-24 03:06] LABS: MAGNESIUM 1.7 MG/DL (1.6-2.4)
--- NOTE | 2021-07-24 03:21 | ED GI ---
General Chief Complaint: Abdominal/GI Problems Stated Complaint: N/V Nursing Triage Note: TO ED [facility]IA [facility] TO ROOM 3 WITH C/O N/V. PT WAS SEEN IN ER EARLIER TODAY FOR SAME COMPLAINT. STATES HE "DIDN'T HAVE A WAY TO [facility] [employer]" NAUSEA MEDICINES ORDERED BY ER PROVIDER. Source of Information: Patient, Old Records Allergies and Home Medications Allergies Coded Allergies: tramadol (Verified Adverse Reaction, Mild, N/V, 12/21/14) Patient Home Medication List Acetaminophen/Diphenhydramine (Tylenol Pm Ex-Strength Caplet) 1 Each Tablet, 1 EACH PO HS PRN for SLEEP, (Reported) Entered as Reported by: ANTHONY BLAKELY on 05/02/21 1334 Gabapentin (Gabapentin) 800 Mg Tablet, 800 MG PO TID, (Reported) Entered as Reported by: SAMRA MCCORD on 08/24/20 1424 Insulin Aspart (Novolog Flexpen) 300 Units/3 Ml Solution, 5 UNITS SQ AC, (Reported) Entered as Reported by: SAMRA MCCORD on 06/07/21 0935 Insulin Determir (Levemir) 1,000 Units/10 Ml Soln, 40 UNIT SQ HS Prescribed by: ALFRED MORGAN on 07/11/21 1028 Lisinopril (Lisinopril) 10 Mg Tablet, 10 MG PO DAILY, (Reported) Entered as Reported by: SAMRA MCCORD on 06/07/21 0935 Ondansetron (Ondansetron Odt) 8 Mg Tab.rapdis, 8 MG PO Q6H Prescribed by: ALFRED MORGAN on 07/11/21 1032 Ondansetron (Ondansetron Odt) 4 Mg Tab.rapdis, 4 MG PO Q6H PRN for NAUSEA/VOMITING Prescribed by: OTTONIEL ARMENTA on 07/23/21 1530 Pantoprazole Sodium (Pantoprazole Sodium) 40 Mg Tablet.dr, 40 MG PO DAILY, (Reported) Entered as Reported by: SAMRA MCCORD on 06/07/21 0935 Prochlorperazine Maleate (Compazine) 10 Mg Tablet, 10 MG PO TID PRN for NAUSEA/VOMITING Prescribed by: ZACHERY BAKER on 07/08/21 1246 Promethazine HCl (Promethazine Tablet) 25 Mg Tablet, 25 MG PO Q6H PRN for NAUSEA/VOMITING Prescribed by: OTTONIEL ARMENTA on 07/23/21 1530 Sucralfate (Carafate) 1 Gm Tablet, 1 GM PO ACHS, (Reported) Entered as Reported by: SAMRA MCCORD on 06/07/21 0935 Past Gqcvpqp-Tqtdmy-Jevcem Hx Patient Social History Substance use?: Yes Substance type: Marijuana Immunizations Up To Date Tetanus Booster (TDap): Unknown First/Initial COVID19 Vaccinat: August 2020 Second COVID19 Vaccination Kumar: September 2020 Third COVID19 Vaccination Date: APRIL 2021 Seasonal Allergies Seasonal Allergies: No Past Medical History Surgery/Hospitalization HX: PMH: T1DM, STOMACH ULCERS Surgeries: Yes Abdominal, Gallbladder Respiratory: Yes (copd dx by patient) COPD Currently Using CPAP: No Currently Using BIPAP: No Cardiac: Yes Hypertension Neurological: Yes Neuropathy Reproductive Disorders: No Sexually Transmitted Disease: No HIV/AIDS: No Genitourinary: Yes Kidney Infection Gastrointestinal: Yes (ELEVATED LIVER ENZYMES, Hep A) Gastroesophageal Reflux, Liver Disease/Jaundice, Esophagitis Musculoskeletal: Yes Arthritis, Scoliosis, Chronic Back Pain Endocrine: Yes (Type I) Diabetes, Insulin dep HEENT: No Hearing Impairment: Denies Cancer: No Psychosocial: Yes (POLYSUBSTANCE ABUSE) Depression Integumentary: No Blood Disorders: No Adverse Reaction/Blood Tranf: No Family Medical History Alcoholism 19 FATHER G8 BROTHER Congenital heart disease 19 FATHER Family history: Cardiovascular disease 19 FATHER, Onset:40's - 50 Family history: Diabetes mellitus 19 MOTHER Family history: Hypertension 19 FATHER Heart disease 19 FATHER History of - respiratory disease 19 FATHER History of drug abuse 19 MOTHER Hypercholesterolemia 19 FATHER Myocardial infarction 19 FATHER Seizure disorder 19 FATHER No Family History of: Abdominal aortic aneurysm Sylva's disease Cancer Congestive heart failure Cystic fibrosis Dementia Dysphagia Family history: Allergy Family history: Alzheimer's disease Family history: Arthritis Family history: Asthma Family history: Breast disease Family history: Coronary thrombosis Family history: Gastrointestinal disease Family history: Glaucoma Family history: Osteoporosis Family history: Thyroid disorder Headache Hearing loss Hereditary disease History of - anemia History of - disorder Human immunodeficiency virus (HIV) seropositivity Infertile Kidney disease Malignant neoplasm of lung Parkinson's disease Prostate cancer Psychotic disorder Stroke Tuberculosis Visual impairment No Pertinent Family Hx Physical Exam Vital Signs Vital Signs - First Documented 07/23/21 22:53 Pulse 85 Resp 16 B/P (MAP) 183/98 (126) Pulse Ox 100 O2 Delivery Room Air Capillary Refill : Less Than 3 Seconds Height/Weight/BMI Height: 5'10.00" Weight: 240lbs. 0oz. 108.614995py; 29.00 BMI Method:Stated Progress/Results/Core Measures Results/Orders Lab Results Laboratory Tests Test 07/24/21 01:46 07/24/21 01:50 07/24/21 02:40 Range/Units Glucometer 304 H 70-110 MG/DL Urine Color YELLOW Urine Clarity CLEAR Urine pH 6.0 5-9 Urine Specific [place] >=1.030 1.016-1.022 Urine Protein TRACE H NEGATIVE Urine Glucose (UA) 2+ H NEGATIVE Urine Ketones 3+ H NEGATIVE Urine Nitrite NEGATIVE NEGATIVE Urine Bilirubin NEGATIVE NEGATIVE Urine Urobilinogen 0.2 < = 1.0 MG/DL Urine Leukocyte Esterase NEGATIVE NEGATIVE Urine RBC (Auto) NEGATIVE NEGATIVE Urine RBC NONE /HPF Urine WBC NONE /HPF Urine Squamous Epithelial Cells 0-2 /HPF Urine Crystals NONE /LPF Urine Bacteria NEGATIVE /HPF Urine Casts NONE /LPF Urine Mucus MODERATE H /LPF Urine Culture Indicated NO Urine Opiates Screen POSITIVE H NEGATIVE Urine Oxycodone Screen NEGATIVE NEGATIVE Urine Methadone Screen NEGATIVE NEGATIVE Urine Propoxyphene Screen NEGATIVE NEGATIVE Urine Barbiturates Screen NEGATIVE NEGATIVE Ur Tricyclic Antidepressants Screen NEGATIVE NEGATIVE Urine Phencyclidine Screen NEGATIVE NEGATIVE Urine Amphetamines Screen NEGATIVE NEGATIVE Urine Methamphetamines Screen NEGATIVE NEGATIVE Urine Benzodiazepines Screen NEGATIVE NEGATIVE Urine Cocaine Screen NEGATIVE NEGATIVE Urine Cannabinoids Screen POSITIVE H NEGATIVE White Blood Count 11.5 H 4.3-11.0 10^3/uL Red Blood Count 4.74 4.30-5.52 10^6/uL Hemoglobin 13.8 13.3-17.7 g/dL Hematocrit 41 40-54 % Mean Corpuscular Volume 86 80-99 fL Mean Corpuscular Hemoglobin 29 25-34 pg Mean Corpuscular Hemoglobin Concent 34 32-36 g/dL Red Cell Distribution Width 12.5 10.0-14.5 % Platelet Count 251 130-400 10^3/uL Mean Platelet Volume 8.9 L 9.0-12.2 fL Immature Granulocyte % (Auto) 1 % Neutrophils (%) (Auto) 86 H 42-75 % Lymphocytes (%) (Auto) 11 L 12-44 % Monocytes (%) (Auto) 2 0-12 % Eosinophils (%) (Auto) 0 0-10 % Basophils (%) (Auto) 0 0-10 % Neutrophils # (Auto) 9.9 H 1.8-7.8 10^3/uL Lymphocytes # (Auto) 1.2 1.0-4.0 10^3/uL Monocytes # (Auto) 0.3 0.0-1.0 10^3/uL Eosinophils # (Auto) 0.0 0.0-0.3 10^3/uL Basophils # (Auto) 0.0 0.0-0.1 10^3/uL Immature Granulocyte # (Auto) 0.1 0.0-0.1 10^3/uL Sodium Level 136 135-145 MMOL/L Potassium Level 3.8 3.6-5.0 MMOL/L Chloride Level 101 98-107 MMOL/L Carbon Dioxide Level 20 L 21-32 MMOL/L Anion Gap 15 H 5-14 MMOL/L Blood Urea Nitrogen 18 7-18 MG/DL Creatinine 0.82 0.60-1.30 MG/DL Estimat Glomerular Filtration Rate 118 BUN/Creatinine Ratio 22 Glucose Level 292 H 70-105 MG/DL Calcium Level 9.3 8.5-10.1 MG/DL Corrected Calcium 9.1 8.5-10.1 MG/DL Magnesium Level 1.7 1.6-2.4 MG/DL Total Bilirubin 1.3 H 0.1-1.0 MG/DL Aspartate Amino Transf (AST/SGOT) 17 5-34 U/L Alanine Aminotransferase (ALT/SGPT) 31 0-55 U/L Alkaline Phosphatase 84 40-136 U/L Total Protein 7.2 6.4-8.2 GM/DL Albumin 4.3 3.2-4.5 GM/DL Serum Alcohol 10 <10 MG/DL My Orders Orders - RONY CANELA DO Accucheck Stat ONCE (07/24/21 01:23) Alcohol (07/24/21 01:48) Cbc With Automated Diff (07/24/21 01:48) Comprehensive Metabolic Panel (07/24/21 01:48) Drug Screen Stat (Urine) (07/24/21 01:48) Magnesium (07/24/21 01:48) Ua Culture If Indicated (07/24/21 01:48) Ed Iv/Invasive Line Start (07/24/21 01:48) Ns Iv 1000 Ml (Sodium Chloride 0.9%) (07/24/21 02:00) Ondansetron Injection (Zofran Injectio (07/24/21 02:00) Pantoprazole Injection (Protonix Injecti (07/24/21 02:00) Medications Given in ED Current Medications Medications Dose Ordered Sig/Fer Route Start Time Stop Time Status Last Admin Dose Admin Ondansetron HCl 8 mg ONCE ONCE IVP 07/24/21 02:00 07/24/21 02:01 DC 07/24/21 02:55 8 MG Pantoprazole 40 mg ONCE ONCE IV 07/24/21 02:00 07/24/21 02:01 DC 07/24/21 02:53 40 MG Vital Signs/I&O 07/23/21 22:53 Pulse 85 Resp 16 B/P (MAP) 183/98 (126) Pulse Ox 100 O2 Delivery Room Air Blood Pressure Mean: 126 FSBG Bedside Testing Finger Stick Blood Glucose: 304 Blood Glucose Action Taken: DOC AND RN NOTIFIED Progress Progress Note : Progress Note GIVEN IV FLUIDS AND ZOFRAN --NAUSEA RESOLVED. Departure Impression Primary Impression: Cannabinoid hyperemesis syndrome Additional Impressions: Diabetes mellitus, insulin dependent (IDDM), uncontrolled Sleep related hypoxia Disposition: HOME, SELF-CARE Condition: Improved Departure-Patient Inst. Decision time for Depature: 03:19 Referrals: [facility] [place] (PCP) Primary Care Physician [facility] [place] (Family) Primary Care Physician Patient Instructions: Cannabis Hyperemesis Syndrome, DIABETES, Nausea and Vomi ting, Adult (DC) Add. Discharge Instructions: CLEAR LIQUIDS, SIPS AT A TIME--WATER, BROTH, JELLO, GATORADE BRATS DIET--BANANAS, RICE, APPLESAUCE, TOAST, SALTINES GET YOUR PRESCRIPTIONS FILLED TODAY AND TAKE PRESCRIBED FOLLOW UP WITH [facility] [place] IN THE NEXT 2-3 DAYS FOR FURTHER CARE All discharge instructions reviewed with patient and/or family. Voiced und erstanding. RONY CANELA DO Jul 24, 2021 03:21
[2021-07-24 04:25] VITALS: BP 129/70
== END 2021-07-24 04:26 | disposition home or self-care (01) ==
LOC: EDUNIT# 22:50 → ER 22:51
DX: R11.2 Nausea with vomiting, unspecified (principal); F12.90 Cannabis use, unspecified, uncomplicated; I10 Essential (primary) hypertension; E11.40 Type 2 diabetes mellitus with diabetic neuropathy, unspecified; J44.9 Chronic obstructive pulmonary disease, unspecified; K21.9 Gastro-esophageal reflux disease without esophagitis; G89.29 Other chronic pain; M54.9 Dorsalgia, unspecified; F32.A Depression, unspecified; G47.34 Idiopathic sleep related nonobstructive alveolar hypoventilation; Z79.4 Long term (current) use of insulin; Z79.899 Other long term (current) drug therapy
CPT/HCPCS: 80053; 80306; 81000; 82947; 83735; 85025; 99284; G0480; 36415; 80320

== ENCOUNTER 2021-08-01 15:15 | Emergency (ER) | payer SELFPAY ==
[~2021-08-01] VITALS: Ht 177.8 cm; Wt 90.7 kg
[2021-08-01 15:24] VITALS: BP 147/84
[2021-08-01] MEDS ORDERED: DICYCLOMINE 10 MG/ML (BENTYL) 2 ML AMP IM STA (15:34)
--- NOTE | 2021-08-01 15:41 | ED General ---
General Chief Complaint: General Problems/Pain Stated Complaint: NAUSEA MEDICATION Nursing Triage Note: PT AMB TO RM 3 REQUESTING ZOFRAN SL REFILL. PT REPORTS HE CALLED [facility] EARLIER TODAY TO SEEK ZOFRAN REFILL WHEN THEY ADVISED HIM THAT HE WOULD NEED AN APPT AND THEY COULD NOT GET HIM IN BEFORE HIS SCHEDULED APPT ON 08/09/21, [facility] FURTHER ADVISED PT TO GO TO ED FOR MED REFILL. PT A&OX4, DENIES PAIN. Source of Information: Patient Exam Limitations: No Limitations History of Present Illness Date Seen by Provider: Aug 01, 2021 Time Seen by Provider: 15:28 Initial Comments Patient is a 36-year-old male, well-known to this emergency department for repeated visits for nausea vomiting, abdominal pain. Has been diagnosed with cannabis hyperemesis syndrome in the past. He is a type I diabetic. Not great with his compliance. Patient states that he needed a refill on his prescription for Zofran, he attempted to get this from [facility], they instructed him that they would be unable to refill his medications and directed him to the emergency department. Alvaro is complaining of some diffuse abdominal cramping, mild in nature. He states he is surprised presumably after an ER visit or hospitalization after a couple of days he normally feels better. He states his cramping has persisted since last time he was here approximately 8 or 9 days ago. He denies fevers or chills, no URI symptoms. No problems with urination. No burning with urination. No black or bloody stool. He did have some diarrhea this morning. States that his blood sugar was around 200 a couple of hours ago, now 378. He did have some extra insulin earlier this afternoon. He has not eaten today. Not horribly nauseous now, actually looks really good. Appears well-hydrated. Vital signs are stable. Covid vaccinated. No recent fevers All other review of systems reviewed and negative except as stated. Associated Systoms: Other (slight diarrhea) Allergies and Home Medications Allergies Coded Allergies: tramadol (Verified Adverse Reaction, Mild, N/V, 12/21/14) Patient Home Medication List Home Medication List Reviewed: Yes Acetaminophen/Diphenhydramine (Tylenol Pm Ex-Strength Caplet) 1 Each Tablet, 1 EACH PO HS PRN for SLEEP, (Reported) Entered as Reported by: ANTHONY BLAKELY on 05/02/21 1334 Gabapentin (Gabapentin) 800 Mg Tablet, 800 MG PO TID, (Reported) Entered as Reported by: SAMRA MCCORD on 08/24/20 1424 Insulin Aspart (Novolog Flexpen) 300 Units/3 Ml Solution, 5 UNITS SQ AC, (Reported) Entered as Reported by: SAMRA MCCORD on 06/07/21 0935 Insulin Determir (Levemir) 1,000 Units/10 Ml Soln, 40 UNIT SQ HS Prescribed by: ALFRED MORGAN on 07/11/21 1028 Lisinopril (Lisinopril) 10 Mg Tablet, 10 MG PO DAILY, (Reported) Entered as Reported by: SAMRA MCCORD on 06/07/21 0935 Ondansetron (Ondansetron Odt) 8 Mg Tab.rapdis, 8 MG PO Q6H Prescribed by: ALFRED MORGAN on 07/11/21 1032 Ondansetron (Ondansetron Odt) 4 Mg Tab.rapdis, 4 MG PO Q6H PRN for NAUSEA/VOMITING Prescribed by: OTTONIEL ARMENTA on 07/23/21 1530 Pantoprazole Sodium (Pantoprazole Sodium) 40 Mg Tablet.dr, 40 MG PO DAILY, (Reported) Entered as Reported by: SAMRA MCCORD on 06/07/21 0935 Prochlorperazine Maleate (Compazine) 10 Mg Tablet, 10 MG PO TID PRN for NAUSEA/VOMITING Prescribed by: ZACHERY BAKER on 07/08/21 1246 Promethazine HCl (Promethazine Tablet) 25 Mg Tablet, 25 MG PO Q6H PRN for NAUSEA/VOMITING Prescribed by: OTTONIEL ARMENTA on 07/23/21 1530 Sucralfate (Carafate) 1 Gm Tablet, 1 GM PO ACHS, (Reported) Entered as Reported by: SAMRA MCCORD on 06/07/21 0935 Review of Systems Review of Systems Constitutional: see HPI EENTM: no symptoms reported Respiratory: no symptoms reported Cardiovascular: no symptoms reported Gastrointestinal: abdominal pain, diarrhea (mild), nausea (minimal) Genitourinary: no symptoms reported Musculoskeletal: no symptoms reported Skin: no symptoms reported All Other Systems Reviewed Negative Unless Noted: Yes Past Zjtlhyc-Kkrzvk-Kxacgd Hx Patient Social History Tobacco Use?: No Use of E-Cig and/or Vaping dev: No Substance use?: No Alcohol Use?: No Immunizations Up To Date Tetanus Booster (TDap): Unknown Influenza Vaccine Up-to-Date: Yes; Up-to-Date First/Initial COVID19 Vaccinat: August 2020 Second COVID19 Vaccination Kumar: September 2020 Third COVID19 Vaccination Date: APRIL 2021 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 Allergies Seasonal Allergies: No Past Medical History Surgery/Hospitalization HX: PMH: T1DM, STOMACH ULCERS Surgeries: Yes Abdominal, Gallbladder Respiratory: Yes (copd dx by patient) COPD Currently Using CPAP: No Currently Using BIPAP: No Cardiac: Yes Hypertension Neurological: Yes Neuropathy Reproductive Disorders: No Sexually Transmitted Disease: No HIV/AIDS: No Genitourinary: Yes Kidney Infection Gastrointestinal: Yes (ELEVATED LIVER ENZYMES, Hep A; CANNIBIS HYPEREMESIS; ) Gastroesophageal Reflux, Liver Disease/Jaundice, Esophagitis Musculoskeletal: Yes Arthritis, Scoliosis, Chronic Back Pain Endocrine: Yes (Type I) Diabetes, Insulin dep HEENT: No Hearing Impairment: Denies Cancer: No Psychosocial: Yes (POLYSUBSTANCE ABUSE) Depression Integumentary: No Blood Disorders: No Adverse Reaction/Blood Tranf: No Family Medical History Alcoholism 19 FATHER G8 BROTHER Congenital heart disease 19 FATHER Family history: Cardiovascular disease 19 FATHER, Onset:40's - 50 Family history: Diabetes mellitus 19 MOTHER Family history: Hypertension 19 FATHER Heart disease 19 FATHER History of - respiratory disease 19 FATHER History of drug abuse 19 MOTHER Hypercholesterolemia 19 FATHER Myocardial infarction 19 FATHER Seizure disorder 19 FATHER No Family History of: Abdominal aortic aneurysm Flat[place]'s disease Cancer Congestive heart failure Cystic fibrosis Dementia Dysphagia Family history: Allergy Family history: Alzheimer's disease Family history: Arthritis Family history: Asthma Family history: Breast disease Family history: Coronary thrombosis Family history: Gastrointestinal disease Family history: Glaucoma Family history: Osteoporosis Family history: Thyroid disorder Headache Hearing loss Hereditary disease History of - anemia History of - disorder Human immunodeficiency virus (HIV) seropositivity Infertile Kidney disease Malignant neoplasm of lung Parkinson's disease Prostate cancer Psychotic disorder Stroke Tuberculosis Visual impairment No Pertinent Family Hx SOCIAL HISTORY: -SMOKES 1 PPD -DRUGS--+ IV METH USE, COCAINE USE, THC, RX DRUGS--ESPECIALLY HYDROCODONE AND ADDERALL -ETOH--HEAVY REGULAR/DAILY USE Physical Exam Vital Signs Vital Signs - First Documented 08/01/21 15:24 Temp 36.7 Pulse 88 Resp 20 B/P (MAP) 147/84 (105) Pulse Ox 99 O2 Delivery Room Air Capillary Refill : Less Than 3 Seconds Height, Weight, BMI Height: 5'10.00" Weight: 240lbs. 0oz. [id number]; 28.00 BMI Method:Stated General Appearance: No Apparent Distress, WD/WN Eyes: Bilateral Eye Normal Inspection, Bilateral Eye PERRL, Bilateral Eye EOMI HEENT: Pharynx Normal, Moist Mucous Membranes Neck: Normal Inspection, Supple Respiratory: Lungs Clear, Normal Breath Sounds, No Accessory Muscle Use, No Respiratory Distress Cardiovascular: Regular Rate, Rhythm, Normal Peripheral Pulses Gastrointestinal: Normal Bowel Sounds, Soft, Tenderness (mild diffuse abdominal tenderness to palpation (chronic) - no distension, no involuntary guarding, no rebound.) Extremity: Normal Capillary Refill, Normal Inspection, Normal Range of Motion Neurologic/Psychiatric: Alert, Oriented x3, No Motor/Sensory Deficits, Normal Mood/Affect Progress/Results/Core Measures Suspected Sepsis SIRS Temperature: Pulse: 88 Respiratory Rate: 20 Blood Pressure 147 /84 Mean: 105 Results/Orders Lab Results Laboratory Tests Test 08/01/21 15:30 Range/Units Glucometer 378 H 70-110 MG/DL My Orders Orders - JG VILLAVICENCIO MD Dicyclomine Injection (Bentyl Injection) (08/01/21 15:34) Ondansetron Oral Dissolve Tab (Zofran (08/01/21 15:45) Vital Signs/I&O 08/01/21 15:24 Temp 36.7 Pulse 88 Resp 20 B/P (MAP) 147/84 (105) Pulse Ox 99 O2 Delivery Room Air Capillary Refill : Less Than 3 Seconds Blood Pressure Mean: 105 Point of Care Testing Finger Stick Blood Glucose: 378 Blood Glucose Action Taken: RN AND PHYS. NOTIFIED Progress Note : Time: 15:38 Progress Note Alvaro actually looks really good today. MOstly just wants a refill on Zofran as he only has 1 or 2 tablets left at home. He does endorse some mildly crampy ab dominal discomfort but admits that he really does feel "pretty good" today. No complaints of fever or bloody stool. I spoke with him about diabetic gastroparesis and good control of his blood sugar,. I also suggested he maybe talk to [facility] about getting tested for H Pylori. He is agreeable - states he has an appointment with [facility] on August 09. Blood sugar actually good for him - 378. Will not place an IV at this time. Will give him a shot of dicyclomine and an ODT zofran. I will send a RX over to [facility] for his 4mg tablets. He is appreciative and looks good. All questions are sought and answered. Departure Impression Primary Impression: Chronic nausea Additional Impression: Chronic abdominal pain Disposition: HOME, SELF-CARE Condition: Stable Departure-Patient Inst. Decision time for Depature: 15:42 Referrals: [place] [facility] [place] (PCP) Primary Care Physician [facility] (Family) Primary Care Physician Patient Instructions: Nausea and Vomiting, Adult (DC) Add. Discharge Instructions: Drink plenty of fluids to stay well hydrated. (sugar free drinks). WATCH YOUR CARBS/SUGAR INTAKE!! Zofran 4mg every 6-8 hours as needed for nausea. Talk to [facility] about getting tested for H Pylori (a bacteria that can cause chronic gut problems). Return to the ER for re-evlauation for any new, concerning or emergent complaints. Keep your appointment with [facility] that is coming up soon. Scripts Ondansetron (Ondansetron Odt) 4 Mg Tab.rapdis 4 MG PO Q8H PRN for nausea, #30 TAB Prov: JG VILLAVICENCIO MD 08/01/21 JG VILLAVICENCIO MD Aug 01, 2021 15:41
[2021-08-01] MEDS ORDERED: ONDA4TAB11 PO (15:44)
[2021-08-01] MEDS ORDERED: ONDANSETRON 4 MG (ZOFRAN) ORAL DISSOLVE TAB PO ONE (15:45)
[2021-08-02] MEDS ORDERED: ONDA4TAB11 PO (15:22)
[2021-08-02] MEDS ORDERED: INSU100I29 SQ (15:22)
== END 2021-08-01 15:50 | disposition home or self-care (01) ==
LOC: EDUNIT# 15:15 → ER 15:19
DX: G89.29 Other chronic pain (principal); R11.2 Nausea with vomiting, unspecified; R10.84 Generalized abdominal pain; E10.9 Type 1 diabetes mellitus without complications
CPT/HCPCS: 82947; 96372

== ENCOUNTER 2021-08-02 11:09 | Observation (INO) | payer SELFPAY ==
[~2021-08-02] VITALS: Ht 177 cm; Wt 88.6 kg
--- NOTE | 2021-08-02 11:27 | ED Abdominal Pain ---
General Chief Complaint: Abdominal/GI Problems Stated Complaint: VOMITING - ABD PAIN Nursing Triage Note: ARRIVED VIA AMB TO FT3. CONTINUES TO HAVE NAUSEA. HAS BEEN HERE MULTIPLE TIMES. 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 He states this has been ongoing for several months. He was here yesterday and several times within this past year. He scheduled follow-up with [facility] on Sunday. Patient was here yesterday was given Zofran but he states the Zofran not helping. Reports dry heaving with coughing up mucus. He states he is urinating. Normal bowel movements. Diffuse abdominal cramping. Patient denies of any fever, chills, chest pain, shortness of breath, headache, dizziness. He denies of any alcohol or drug use. Allergies and Home Medications Allergies Coded Allergies: tramadol (Verified Adverse Reaction, Mild, N/V, 12/21/14) Patient Home Medication List Home Medication List Reviewed: Yes Acetaminophen/Diphenhydramine (Tylenol Pm Ex-Strength Caplet) 1 Each Tablet, 1 EACH PO HS PRN for SLEEP, (Reported) Entered as Reported by: ANTHONY BLAKELY on 05/02/21 1334 Last Action: Reviewed Gabapentin (Gabapentin) 800 Mg Tablet, 800 MG PO TID, (Reported) Entered as Reported by: SAMRA MCCORD on 08/24/20 1424 Last Action: Reviewed Insulin Aspart (Novolog Flexpen) 300 Units/3 Ml Solution, 5 UNITS SQ AC, (Reported) Entered as Reported by: SAMRA MCCORD on 06/07/21 0935 Last Action: Reviewed Insulin Detemir (Levemir Flextouch) 100 Unit/1 Ml Insuln.pen, 45 UNIT SQ HS, (Reported) Entered as Reported by: SAMRA MCCORD on 08/02/21 1522 Last Action: Reviewed Lisinopril (Lisinopril) 10 Mg Tablet, 10 MG PO DAILY, (Reported) Entered as Reported by: SAMRA MCCORD on 06/07/21 0935 Last Action: Reviewed Ondansetron (Ondansetron Odt) 4 Mg Tab.rapdis, 4 MG PO Q6H PRN for NAUSEA/VOMITING-1ST LINE, (Reported) Entered as Reported by: SAMRA MCCORD on 08/02/21 1522 Last Action: Reviewed Pantoprazole Sodium (Pantoprazole Sodium) 40 Mg Tablet.dr, 40 MG PO DAILY, (Reported) Entered as Reported by: SAMRA MCCORD on 06/07/21934 Last Action: Reviewed Sucralfate (Carafate) 1 Gm Tablet, 1 GM PO HS, (Reported) Entered as Reported by: SAMRA MCCORD on 06/07/21934 Last Action: Reviewed Discontinued Medications Insulin Determir (Levemir) 1,000 Units/10 Ml Soln, 40 UNIT SQ HS Discontinued Reason: Duplicate Order Prescribed by: ALFRED MORGAN on 07/11/21 1028 Last Action: Discontinued Ondansetron (Ondansetron Odt) 8 Mg Tab.rapdis, 8 MG PO Q6H Discontinued Reason: No Longer Taking Prescribed by: ALFRED MORGAN on 07/11/21 1032 Last Action: Discontinued Ondansetron (Ondansetron Odt) 4 Mg Tab.rapdis, 4 MG PO Q6H PRN for NAUSEA/VOMITING Discontinued Reason: No Longer Taking Prescribed by: OTTONIEL ARMENTA on 07/23/21 1530 Last Action: Discontinued Ondansetron (Ondansetron Odt) 4 Mg Tab.rapdis, 4 MG PO Q8H PRN for nausea Discontinued Reason: No Longer Taking Prescribed by: JG VILLAVICENCIO on 08/01/21 1544 Last Action: Discontinued Prochlorperazine Maleate (Compazine) 10 Mg Tablet, 10 MG PO TID PRN for NAUSEA/VOMITING Discontinued Reason: No Longer Taking Prescribed by: ZACHERY BAKER on 07/08/21 1246 Last Action: Discontinued Promethazine HCl (Promethazine Tablet) 25 Mg Tablet, 25 MG PO Q6H PRN for NAUSEA/VOMITING Discontinued Reason: No Longer Taking Prescribed by: OTTONIEL ARMENTA on 07/23/21 1530 Last Action: Discontinued Review of Systems Review of Systems Constitutional: No chills, No diaphoresis, No dizziness, No malaise, No weakness EENTM: No Ear Drainage, No Ear Pain, No Mouth Pain, No Nose Congestion, No Nose Pain, No Throat Swelling Respiratory: Denies Cough, Denies Orthopnea, Denies SOA With Exertion, Denies SOA at Rest Cardiovascular: Denies Chest Pain, Denies Edema, Denies Irregular Heart Rate Gastrointestinal: Abdominal Pain; Denies Constipated, Denies Diarrhea; Nausea, Vomiting Genitourinary: Denies Burning, Denies Discharge Musculoskeletal: No back pain, No joint pain Skin: No change in color, No change in hair/nails, No dryness, No pruritus, No rash Psychiatric/Neurological: Denies Anxiety, Denies Depressed, Denies Headache All Other Systems Reviewed Negative Unless Noted: Yes Past Jtosqyn-Whnoxa-Qwfxyw Hx Patient Social History Tobacco Use?: No Smoking Status: Never a Smoker Substance use?: No Alcohol Use?: No Pt feels they are or have been: No Immunizations Up To Date Tetanus Booster (TDap): Unknown First/Initial COVID19 Vaccinat: August 2020 Second COVID19 Vaccination Kumar: September 2020 Third COVID19 Vaccination Date: APRIL 2021 Seasonal Allergies Seasonal Allergies: No Past Medical History Surgery/Hospitalization HX: PMH: T1DM, STOMACH ULCERS Surgeries: Yes Abdominal, Gallbladder Respiratory: Yes (copd dx by patient) COPD Currently Using CPAP: No Currently Using BIPAP: No Cardiac: Yes Hypertension Neurological: Yes Neuropathy Reproductive Disorders: No Sexually Transmitted Disease: No HIV/AIDS: No Genitourinary: Yes Kidney Infection Gastrointestinal: Yes (ELEVATED LIVER ENZYMES, Hep A; CANNIBIS HYPEREMESIS; ) Gastroesophageal Reflux, Liver Disease/Jaundice, Esophagitis Musculoskeletal: Yes Arthritis, Scoliosis, Chronic Back Pain Endocrine: Yes (Type I) Diabetes, Insulin dep HEENT: No Hearing Impairment: Denies Cancer: No Psychosocial: Yes (POLYSUBSTANCE ABUSE) Depression Integumentary: No Blood Disorders: No Adverse Reaction/Blood Tranf: No Family Medical History Alcoholism 19 FATHER G8 BROTHER Congenital heart disease 19 FATHER Family history: Cardiovascular disease 19 FATHER, Onset:40's - 50 Family history: Diabetes mellitus 19 MOTHER Family history: Hypertension 19 FATHER Heart disease 19 FATHER History of - respiratory disease 19 FATHER History of drug abuse 19 MOTHER Hypercholesterolemia 19 FATHER Myocardial infarction 19 FATHER Seizure disorder 19 FATHER No Family History of: Abdominal aortic aneurysm Markos's disease Cancer Congestive heart failure Cystic fibrosis Dementia Dysphagia Family history: Allergy Family history: Alzheimer's disease Family history: Arthritis Family history: Asthma Family history: Breast disease Family history: Coronary thrombosis Family history: Gastrointestinal disease Family history: Glaucoma Family history: Osteoporosis Family history: Thyroid disorder Headache Hearing loss Hereditary disease History of - anemia History of - disorder Human immunodeficiency virus (HIV) seropositivity Infertile Kidney disease Malignant neoplasm of lung Parkinson's disease Prostate cancer Psychotic disorder Stroke Tuberculosis Visual impairment No Pertinent Family Hx SOCIAL HISTORY: -SMOKES 1 PPD -DRUGS--+ IV METH USE, COCAINE USE, THC, RX DRUGS--ESPECIALLY HYDROCODONE AND ADDERALL -ETOH--HEAVY REGULAR/DAILY USE Physical Exam Vital Signs Vital Signs - First Documented 08/02/21 11:10 Temp 36.7 Pulse 89 Resp 16 B/P (MAP) 164/93 (116) Pulse Ox 99 O2 Delivery Room Air Capillary Refill : Height/Weight/BMI Height: 5'10.00" Weight: 240lbs. 0oz. 108.102974vw; 28.00 BMI Method:Stated General Appearance: WD/WN, no apparent distress HEENT: PERRL/EOMI, normal ENT inspection, TMs normal, pharynx normal Neck: non-tender, full range of motion, supple, normal inspection Respiratory: chest non-tender, lungs clear, normal breath sounds, no respiratory distress, no accessory muscle use Cardiovascular: regular rate, rhythm, no edema, no gallop, no JVD Gastrointestinal: normal bowel sounds, soft, no organomegaly, no pulsatile mass, other (diffuse abdominal tenderness throughout.) Extremities: normal range of motion, non-tender, normal inspection, no pedal edema, no calf tenderness Back: normal inspection, no CVA tenderness Neurologic/Psychiatric: apron trimmer II-XII nml as tested, no motor/sensory deficits, alert, normal mood/affect, oriented x 3 Skin: normal color, warm/dry Progress/Results/Core Measures Results/Orders Lab Results Laboratory Tests Test 08/02/21 11:30 08/02/21 12:00 08/02/21 12:07 08/02/21 12:11 Range/Units Glucometer 439 *H 70-110 MG/DL White Blood Count 6.2 4.3-11.0 10^3/uL Red Blood Count 4.44 4.30-5.52 10^6/uL Hemoglobin 13.3 13.3-17.7 g/dL Hematocrit 38 L 40-54 % Mean Corpuscular Volume 86 80-99 fL Mean Corpuscular Hemoglobin 30 25-34 pg Mean Corpuscular Hemoglobin Concent 35 32-36 g/dL Red Cell Distribution Width 12.3 10.0-14.5 % Platelet Count 221 130-400 10^3/uL Mean Platelet Volume 8.9 L 9.0-12.2 fL Immature Granulocyte % (Auto) 0 % Neutrophils (%) (Auto) 69 42-75 % Lymphocytes (%) (Auto) 22 12-44 % Monocytes (%) (Auto) 5 0-12 % Eosinophils (%) (Auto) 3 0-10 % Basophils (%) (Auto) 1 0-10 % Neutrophils # (Auto) 4.3 1.8-7.8 10^3/uL Lymphocytes # (Auto) 1.4 1.0-4.0 10^3/uL Monocytes # (Auto) 0.3 0.0-1.0 10^3/uL Eosinophils # (Auto) 0.2 0.0-0.3 10^3/uL Basophils # (Auto) 0.0 0.0-0.1 10^3/uL Immature Granulocyte # (Auto) 0.0 0.0-0.1 10^3/uL Sodium Level 135 135-145 MMOL/L Potassium Level 4.0 3.6-5.0 MMOL/L Chloride Level 100 98-107 MMOL/L Carbon Dioxide Level 21 21-32 MMOL/L Anion Gap 14 5-14 MMOL/L Blood Urea Nitrogen 16 7-18 MG/DL Creatinine 0.93 0.60-1.30 MG/DL Estimat Glomerular Filtration Rate 111 BUN/Creatinine Ratio 17 Glucose Level 440 *H 70-105 MG/DL Calcium Level 9.7 8.5-10.1 MG/DL Corrected Calcium 9.6 8.5-10.1 MG/DL Total Bilirubin 1.0 0.1-1.0 MG/DL Aspartate Amino Transf (AST/SGOT) 20 5-34 U/L Alanine Aminotransferase (ALT/SGPT) 23 0-55 U/L Alkaline Phosphatase 78 40-136 U/L Total Protein 6.7 6.4-8.2 GM/DL Albumin 4.1 3.2-4.5 GM/DL Beta-Hydroxybutyrate (Chem panel) 2.43 H 0.00-0.27 MMOL/L Urine Color YELLOW Urine Clarity CLEAR Urine pH 8.0 5-9 Urine Specific [place] 1.015 L 1.016-1.022 Urine Protein NEGATIVE NEGATIVE Urine Glucose (UA) 3+ H NEGATIVE Urine Ketones 3+ H NEGATIVE Urine Nitrite NEGATIVE NEGATIVE Urine Bilirubin NEGATIVE NEGATIVE Urine Urobilinogen 0.2 < = 1.0 MG/DL Urine Leukocyte Esterase NEGATIVE NEGATIVE Urine RBC (Auto) NEGATIVE NEGATIVE Urine RBC NONE /HPF Urine WBC NONE /HPF Urine Squamous Epithelial Cells RARE /HPF Urine Crystals NONE /LPF Urine Bacteria NEGATIVE /HPF Urine Casts NONE /LPF Urine Mucus NEGATIVE /LPF Urine Culture Indicated NO Blood Gas Puncture Site L RADIAL Blood Gas Patient Temperature 36.7 Arterial Blood pH 7.60 H 7.37-7.43 Arterial Blood Partial Pressure CO2 21 L 35-45 MMHG Arterial Blood Partial Pressure O2 144 H 79-93 MMHG Arterial Blood HCO3 21 L 23-27 MMOL/L Arterial Blood Total CO2 21.6 21.0-31.0 MMOL/L Arterial Blood Oxygen Saturation 97 94-100 % Arterial Blood Base Excess -0.8 -2.5-2.5 MMOL/L Mauri Test NA Blood Gas Ventilator Setting NA Blood Gas Inspired Oxygen NA My Orders Orders - NEVIN JOHNSON Promethazine Injection (Phenergan Injec (08/02/21 11:30) Accucheck Stat ONCE (08/02/21 11:27) Beta Hydroxybutyrate (08/02/21 11:56) Arterial Blood Gas (08/02/21 11:56) Lactated Ringers (Lr 1000 Ml Iv Solution (08/02/21 11:56) Cbc With Automated Diff (08/02/21 11:57) Comprehensive Metabolic Panel (08/02/21 11:57) Ua Culture If Indicated (08/02/21 11:57) Ekg Tracing (08/02/21 12:22) Droperidol Inj (Ed Only) (Inapsine Inj ( (08/02/21 12:30) Admission Order(Inpt,Obs,Sdc) (08/02/21 13:22) Code/Resuscitation (08/02/21 13:22) Ambulate 08,12,20 (08/02/21 13:22) Sequential Compression Device ONCE (08/02/21 13:22) Initiate Admission Nursing Pro .admission (08/02/21 13:22) Insulin (Regular) Human (Novolin R (Per (08/02/21 13:30) Medications Given in ED Current Medications Medications Dose Ordered Sig/Fer Route Start Time Stop Time Status Last Admin Dose Admin Droperidol 2.5 mg ONCE ONCE IV 08/02/21 12:30 08/02/21 12:31 DC 08/02/21 12:41 2.5 MG Promethazine HCl 25 mg ONCE ONCE IM 08/02/21 11:30 08/02/21 11:31 DC 08/02/21 11:32 25 MG Vital Signs/I&O 08/02/21 08/02/21 11:10 13:00 Temp 36.7 Pulse 89 76 Resp 16 16 B/P (MAP) 164/93 (116) 124/71 Pulse Ox 99 97 O2 Delivery Room Air Room Air Comment Sinus rhythm, 61 bpm, QRS duration 91 MS, QTc 457 MS. Departure Communication (Admissions) Time/Spoke to Admitting Phy: 13:[address] Pérez hospitalist for [facility]. Accepted patient. Patient with a history of type 1 diabetes, and hyperemesis cannabinoid syndrome who presents ED with generalized abdominal pain, vomiting. Was seen here yesterday discharged with [place] with no improvement. Denies of any marijuana use. Patient states he has been using his insulin but not able to eat or drink. Patient blood sugar over 450. Urinalysis positive for ketones. Concerning for DKA. Patient's blood pH 7.60. PCO2 21 and bicarb 21. Normal anion gap. Serum ketones 2.63. Patient alkalosis may be secondary to vomiting or compensation mechanism. Patient lecture lites within normal limit. Hematology lab work unremarkable. Was given Phenergan and droperidol after EKG without much improvement. Continued to have dry heaving. Patient was given dose of insulin and LR 1000 ml. Patient will be admitted for further evaluation. Discussed patient with hospitalist Dr. Pérez who accepts patient Impression Primary Impression: Intractable cyclical vomiting with nausea Additional Impression: Hyperglycemia Disposition: ADMITTED INPATIENT Condition: Stable Admissions Decision to Admit Reason: Admit from ER (General) Decision to Admit/Date: Aug 02, 2021 Time/Decision to Admit Time: 13:30 Departure-Patient Inst. Referrals: [facility] (PCP/Family) Primary Care Physician NEVIN JOHNSON Aug 02, 2021 11:26
[2021-08-02] MEDS ORDERED: PROMETHAZINE INJ 25 MG/ML (PHENERGAN) AMP IM ONE (11:30)
[2021-08-02] MEDS ORDERED: LACTATED RINGERS 1,000 ML IV STA (11:56)
[2021-08-02 12:07] LABS: BASOPHILS % (AUTO) 1 % (0-10); EOSINOPHILS # (AUTO) 0.2 10^3/uL (0.0-0.3); EOSINOPHILS % (AUTO) 3 % (0-10); HEMATOCRIT 38 % (40-54); HEMOGLOBIN 13.3 g/dL (13.3-17.7); LYMPHOCYTES # (AUTO) 1.4 10^3/uL (1.0-4.0); LYMPHOCYTES % (AUTO) 22 % (12-44); MEAN CORPUSCULAR HEMOGLOBIN 30 pg (25-34); MEAN CORPUSCULAR HGB CONC 35 g/dL (32-36); MEAN CORPUSCULAR VOLUME 86 fL (80-99); MEAN PLATELET VOLUME 8.9 fL (9.0-12.2); MONOCYTES # (AUTO) 0.3 10^3/uL (0.0-1.0); MONOCYTES % (AUTO) 5 % (0-12); NEUTROPHILS # (AUTO) 4.3 10^3/uL (1.8-7.8); NEUTROPHILS % (AUTO) 69 % (42-75); PLATELET COUNT 221 10^3/uL (130-400); WHITE BLOOD COUNT 6.2 10^3/uL (4.3-11.0)
[2021-08-02 12:10] LABS: BILIRUBIN,URINE NEGATIVE (NEGATIVE); CLARITY,URINE CLEAR; COLOR,URINE YELLOW; GLUCOSE, URINE (UA) 3+ (NEGATIVE); KETONES,URINE 3+ (NEGATIVE); LEUKOCYTE ESTERASE ,URINE NEGATIVE (NEGATIVE); NITRITE,URINE NEGATIVE (NEGATIVE); PROTEIN,URINE NEGATIVE (NEGATIVE)
[2021-08-02 12:16] LABS: ABG BASE EXCESS -0.8 MMOL/L (-2.5-2.5); ABG OXYGEN SATURATION 97 % (94-100); ABG PCO2 21 MMHG (35-45); ABG PO2 144 MMHG (79-93); ABG TCO2 21.6 MMOL/L (21.0-31.0)
[2021-08-02 12:18] LABS: BACTERIA,URINE NEGATIVE /HPF
[2021-08-02 12:18] LABS: PATIENT TEMP 36.7
[2021-08-02 12:19] LABS: SQUAMOUS EPITHELIAL CELL,UR RARE /HPF
[2021-08-02 12:23] LABS: ALBUMIN 4.1 GM/DL (3.2-4.5)
[2021-08-02 12:24] LABS: CALCIUM 9.7 MG/DL (8.5-10.1)
[2021-08-02 12:25] LABS: TOTAL PROTEIN 6.7 GM/DL (6.4-8.2)
[2021-08-02 12:29] LABS: CREATININE SERUM 0.93 MG/DL (0.60-1.30)
[2021-08-02] MEDS ORDERED: DROPERIDOL 5 MG/2 ML (INAPSINE) ED ONLY! IV ONE (12:30)
[2021-08-02] MEDS ORDERED: inSUlin (REGULAR) HUMAN 1 UNIT/0.01 ML (CHARGE PER UNIT) SC ONE (13:30)
[2021-08-02] MEDS ORDERED: ONDA4TAB11 PO ×2 (15:22)
[2021-08-02] MEDS ORDERED: INSU100I29 SQ ×2 (15:22)
[2021-08-02] MEDS: NS IV 1000 ML 1,000 ML IV SCH ×2 (15:44→22:00)
[2021-08-02] MEDS: ONDANSETRON 4 MG/2 ML (SDV) Z0FRAN IVP PRN ×2 (15:45→20:40)
[2021-08-02 16:20] VITALS: BP 157/81
--- NOTE | 2021-08-02 17:46 | History & Physical ---
HPI History of Present Illness: Pt reports he has been having nausea and abodminal pain and vomiting on and off for a couple of weeks, with significant worsening in last couple of days. Originally Alta was helping, but this morning he couldn't keep anything down. He has diabetes and uses basal bolus regimen, states he has not been out of insulin and has been using his insulin. He denies fever, diarrhea, cough, shortness of breath or chest pain. He does say he has had nasal congestion for a week or week and a half. Reports previous frequent use of THC, last use about 3 weeks ago. Source: patient Date seen by provider: Aug 02, 2021 Time Seen by Provider: 13:30 Attending Physician Nighat Pérez MD [facility] Consult Date of Admission Aug 02, 2021 at 13:23 Home Medications Home Medications Reviewed patient Home Medication Reconciliation performed by pharmacy medication reconciliations smt technician and/or nursing. Patients Allergies have been reviewed. Allergies Coded Allergies: tramadol (Verified Adverse Reaction, Mild, N/V, 12/21/14) [id number] Hx Patient Social History Drug of Choice: POT Smoking Status: Never a Smoker 2nd Hand Smoke Exposure: No Recent Hopitalizations: No Alcohol Use?: No Have you traveled recently?: No Immunizations Up To Date Tetanus Booster (TDap): Unknown Influenza Vaccine Up-to-Date: Yes; Up-to-Date First/Initial COVID19 Vaccinat: UNK Second COVID19 Vaccination Kumar: UNK Third COVID19 Vaccination Date: UNK COVID19 Vaccine Mechanical Intern: MODERNA Past Medical History Past Medical History 1. DM, insulin requiring 2. Hypertension 3. Alcoholism- reports stopped drinking 4. 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 Tobaccoism 6. GERD 7. Peipheral Neuropathy Past Surgical History Denies Family Medical History Significant Family History: Heart Disease, Diabetes, Hypertension Other Significan Family Hx: SOCIAL HISTORY: -SMOKES 1 PPD -History of DRUGS--+ IV METH USE, COCAINE USE, THC, RX DRUGS--ESPECIALLY HYDROCODONE AND ADDERALL -History of ETOH--HEAVY REGULAR/DAILY USE Review of Systems ([facility]) Constitutional: No fever EENTM: nose congestion; No throat pain Respiratory: No short of breath Cardiovascular: No chest pain Gastrointestinal: abdominal pain Genitourinary: No dysuria Skin: No rash Reviewed Test Results Reviewed Test Results Lab Laboratory Tests Test 08/02/21 11:30 08/02/21 12:00 08/02/21 12:07 08/02/21 12:11 Range/Units Glucometer 439 *H 70-110 MG/DL White Blood Count 6.2 4.3-11.0 10^3/uL Red Blood Count 4.44 4.30-5.52 10^6/uL Hemoglobin 13.3 13.3-17.7 g/dL Hematocrit 38 L 40-54 % Mean Corpuscular Volume 86 80-99 fL Mean Corpuscular Hemoglobin 30 25-34 pg Mean Corpuscular Hemoglobin Concent 35 32-36 g/dL Red Cell Distribution Width 12.3 10.0-14.5 % Platelet Count 221 130-400 10^3/uL Mean Platelet Volume 8.9 L 9.0-12.2 fL Immature Granulocyte % (Auto) 0 % Neutrophils (%) (Auto) 69 42-75 % Lymphocytes (%) (Auto) 22 12-44 % Monocytes (%) (Auto) 5 0-12 % Eosinophils (%) (Auto) 3 0-10 % Basophils (%) (Auto) 1 0-10 % Neutrophils # (Auto) 4.3 1.8-7.8 10^3/uL Lymphocytes # (Auto) 1.4 1.0-4.0 10^3/uL Monocytes # (Auto) 0.3 0.0-1.0 10^3/uL Eosinophils # (Auto) 0.2 0.0-0.3 10^3/uL Basophils # (Auto) 0.0 0.0-0.1 10^3/uL Immature Granulocyte # (Auto) 0.0 0.0-0.1 10^3/uL Sodium Level 135 135-145 MMOL/L Potassium Level 4.0 3.6-5.0 MMOL/L Chloride Level 100 98-107 MMOL/L Carbon Dioxide Level 21 21-32 MMOL/L Anion Gap 14 5-14 MMOL/L Blood Urea Nitrogen 16 7-18 MG/DL Creatinine 0.93 0.60-1.30 MG/DL Estimat Glomerular Filtration Rate 111 BUN/Creatinine Ratio 17 Glucose Level 440 *H 70-105 MG/DL Calcium Level 9.7 8.5-10.1 MG/DL Corrected Calcium 9.6 8.5-10.1 MG/DL Total Bilirubin 1.0 0.1-1.0 MG/DL Aspartate Amino Transf (AST/SGOT) 20 5-34 U/L Alanine Aminotransferase (ALT/SGPT) 23 0-55 U/L Alkaline Phosphatase 78 40-136 U/L Total Protein 6.7 6.4-8.2 GM/DL Albumin 4.1 3.2-4.5 GM/DL Beta-Hydroxybutyrate (Chem panel) 2.43 H 0.00-0.27 MMOL/L Urine Color YELLOW Urine Clarity CLEAR Urine pH 8.0 5-9 Urine Specific [place] 1.015 L 1.016-1.022 Urine Protein NEGATIVE NEGATIVE Urine Glucose (UA) 3+ H NEGATIVE Urine Ketones 3+ H NEGATIVE Urine Nitrite NEGATIVE NEGATIVE Urine Bilirubin NEGATIVE NEGATIVE Urine Urobilinogen 0.2 < = 1.0 MG/DL Urine Leukocyte Esterase NEGATIVE NEGATIVE Urine RBC (Auto) NEGATIVE NEGATIVE Urine RBC NONE /HPF Urine WBC NONE /HPF Urine Squamous Epithelial Cells RARE /HPF Urine Crystals NONE /LPF Urine Bacteria NEGATIVE /HPF Urine Casts NONE /LPF Urine Mucus NEGATIVE /LPF Urine Culture Indicated NO Blood Gas Puncture Site L RADIAL Blood Gas Patient Temperature 36.7 Arterial Blood pH 7.60 H 7.37-7.43 Arterial Blood Partial Pressure CO2 21 L 35-45 MMHG Arterial Blood Partial Pressure O2 144 H 79-93 MMHG Arterial Blood HCO3 21 L 23-27 MMOL/L Arterial Blood Total CO2 21.6 21.0-31.0 MMOL/L Arterial Blood Oxygen Saturation 97 94-100 % Arterial Blood Base Excess -0.8 -2.5-2.5 MMOL/L Mauri Test NA Blood Gas Ventilator Setting NA Blood Gas Inspired Oxygen NA Test 08/02/21 16:27 08/02/21 19:55 Range/Units Glucometer 226 H 162 H 70-110 MG/DL Physical Exam-([facility]) Physical Exam Vital Signs VS - Last 72 Hours, by Label 08/02/21 08/02/21 08/02/21 08/02/21 11:10 13:00 14:36 16:20 Temp 36.7 37.4 Pulse 89 76 74 Resp 16 16 18 B/P (MAP) 164/93 (116) 124/71 157/81 (106) Pulse Ox 99 97 95 O2 Delivery Room Air Room Air Room Air Room Air 08/02/21 20:30 Temp 37.6 Pulse 110 Resp 20 B/P (MAP) 170/81 (110) Pulse Ox 99 O2 Delivery Room Air Capillary Refill : Less Than 3 Seconds General Appearance: WD/WN, other (lying in chair, curled up) Respiratory: lungs clear, normal breath sounds, no respiratory distress Cardiovascular: regular rate, rhythm, no murmur Gastrointestinal: normal bowel sounds, soft; No distended; tenderness (diffuse, to extremely light touch) Extremities: no pedal edema Neurologic/Psychiatric: alert, other (flat affect) Skin: normal color, warm/dry Assessment/Plan Assessment/Plan Admission Status: Observation (1) Intractable cyclical vomiting with nausea Status: Acute Assessment & Plan: Uncertain etiology, no clear DKA this admit, possibly related to hyperemesis syndrome. Supportive care with anti-emetics and fluids. (2) Diabetes mellitus, insulin dependent (IDDM), uncontrolled Onset Date: ~ 06/04/2007 Status: Chronic Assessment & Plan: No DKA, will treat with home insulin, sliding scale and fluids. (3) Abdominal pain Onset Date: ~ 06/04/2021 Status: Chronic Qualifiers: Qualified Codes: R10.84 - Generalized abdominal pain (4) DVT prophylaxis Status: Acute Assessment & Plan: Enoxaparin NIGHAT PÉREZ MD Aug 02, 2021 17:46
[2021-08-02] MEDS: inSUlin ASPART (NovoLOG) 1 UNIT/0.01 ML (CHARGE PER UNIT) SC SCH ×2 (17:47→21:18)
[2021-08-02 20:30] VITALS: BP 170/81
[2021-08-02] MEDS ORDERED: SUCRALFATE 1 GM (CARAFATE) TAB PO SCH (21:00)
[2021-08-02] MEDS ORDERED: ENOXAPARIN 40 MG/0.4 ML (LOVENOX) SYR SQ SCH (21:00)
[2021-08-03 00:23] VITALS: BP 154/70
[2021-08-03] MEDS: NS IV 1000 ML 1,000 ML IV SCH ×2 (02:07→10:46)
[2021-08-03] MEDS: ONDANSETRON 4 MG/2 ML (SDV) Z0FRAN IVP PRN ×2 (02:07→08:21)
[2021-08-03 04:08] VITALS: BP 126/60
[2021-08-03] MEDS: inSUlin ASPART (NovoLOG) 1 UNIT/0.01 ML (CHARGE PER UNIT) SQ SCH ×2 (05:48→10:54)
[2021-08-03] MEDS: inSUlin ASPART (NovoLOG) 1 UNIT/0.01 ML (CHARGE PER UNIT) SC SCH ×2 (05:49→10:54)
[2021-08-03 07:42] VITALS: BP 134/71
[2021-08-03 08:47] LABS: HEMATOCRIT 35 % (40-54); MEAN CORPUSCULAR HEMOGLOBIN 30 pg (25-34); MEAN CORPUSCULAR HGB CONC 34 g/dL (32-36); MEAN CORPUSCULAR VOLUME 87 fL (80-99); MEAN PLATELET VOLUME 9.2 fL (9.0-12.2); PLATELET COUNT 243 10^3/uL (130-400); WHITE BLOOD COUNT 10.9 10^3/uL (4.3-11.0)
[2021-08-03] MEDS ORDERED: lisINopril 10 MG (PRINIVIL) TABLET PO SCH (09:00)
[2021-08-03] MEDS ORDERED: PANTOPRAZOLE 40 MG (PROTONIX) TAB PO SCH (09:00)
[2021-08-03] MEDS ORDERED: ENOXAPARIN 40 MG/0.4 ML (LOVENOX) SYR SC SCH (09:00)
[2021-08-03] MEDS ORDERED: GABAPENTIN 400 MG (NEURONTIN) CAP PO SCH (09:00)
[2021-08-03 09:05] LABS: CALCIUM 8.4 MG/DL (8.5-10.1); CREATININE SERUM 0.77 MG/DL (0.60-1.30); POTASSIUM 3.6 MMOL/L (3.6-5.0)
--- NOTE | 2021-08-03 10:28 | Discharge Summary ---
Discharge Summary Hospital Course Problems/Diagnosis: (1) Intractable cyclical vomiting with nausea Status: Acute Assessment & Plan: Uncertain etiology, no clear DKA this admit, possibly related to hyperemesis syndrome. Supportive care with anti-emetics and fluids. 3/- tolerating liquids without vomiting, continue ondansetron as needed outpatient. (2) Diabetes mellitus, insulin dependent (IDDM), uncontrolled Onset Date: ~ 06/04/2007 Status: Chronic Assessment & Plan: No DKA, will treat with home insulin, sliding scale and fluids. (3) Abdominal pain Onset Date: ~ 06/04/2021 Status: Chronic Assessment & Plan: Chronic, remains significant but recalcitrant to treatment multiple admissions in the past. Qualifiers: Qualified Codes: R10.84 - Generalized abdominal pain Hospital Course Date of Admission: Aug 02, 2021 at 13:23 Admission Diagnosis : Hyperglycemia Nausea and vomiting DMI Chronic abdominal pain Marijuana use Family Physician/Provider[facility] Date of Discharge: 08/03/21 Discharge Diagnosis: Hyperglycemia Nausea and vomiting DMI Chronic abdominal pain Marijuana use Hospital Course: Pt admitted and given IVF, home insulin, ondansetron and was able to tolerate liquids without vomiting on day of discharge, blood sugar in the 200s without acidosis. Labs and Pending Lab Test: Laboratory Tests 08/02/21 11:30: Glucometer 439*H 08/02/21 12:00: White Blood Count 6.2, Red Blood Count 4.44, Hemoglobin 13.3, Hematocrit 38L, Mean Corpuscular Volume 86, Mean Corpuscular Hemoglobin 30, Mean Corpuscular Hemoglobin Concent 35, Red Cell Distribution Width 12.3, Platelet Count 221, Mean Platelet Volume 8.9L, Immature Granulocyte % (Auto) 0, Neutrophils (%) (Auto) 69, Lymphocytes (%) (Auto) 22, Monocytes (%) (Auto) 5, Eosinophils (%) (Auto) 3, Basophils (%) (Auto) 1, Neutrophils # (Auto) 4.3, Lymphocytes # (Auto) 1.4, Monocytes # (Auto) 0.3, Eosinophils # (Auto) 0.2, Basophils # (Auto) 0.0, Immature Granulocyte # (Auto) 0.0, Sodium Level 135, Potassium Level 4.0, Chloride Level 100, Carbon Dioxide Level 21, Anion Gap 14, Blood Urea Nitrogen 16, Creatinine 0.93, Estimat Glomerular Filtration Rate 111, BUN/Creatinine Ratio 17, Glucose Level 440*H, Calcium Level 9.7, Corrected Calcium 9.6, Total Bilirubin 1.0, Aspartate Amino Transf (AST/SGOT) 20, Alanine Aminotransferase (ALT/SGPT) 23, Alkaline Phosphatase 78, Total Protein 6.7, Albumin 4.1, Beta- Hydroxybutyrate (Chem panel) 2.43H 08/02/21 12:07: Urine Color YELLOW, Urine Clarity CLEAR, Urine pH 8.0, Urine Specific [place] 1.015L, Urine Protein NEGATIVE, Urine Glucose (UA) 3+H, Urine Ketones 3+H, Urine Nitrite NEGATIVE, Urine Bilirubin NEGATIVE, Urine Urobilinogen 0.2, Urine Leukocyte Esterase NEGATIVE, Urine RBC (Auto) NEGATIVE, Urine RBC NONE, Urine WBC NONE, Urine Squamous Epithelial Cells RARE, Urine Crystals NONE, Urine Bacteria NEGATIVE, Urine Casts NONE, Urine Mucus NEGATIVE, Urine Culture Indicated NO 08/02/21 12:11: Blood Gas Puncture Site L RADIAL, Blood Gas Patient Temperature 36.7, Arterial Blood pH 7.60H, Arterial Blood Partial Pressure CO2 21L, Arterial Blood Partial Pressure O2 144H, Arterial Blood HCO3 21L, Arterial Blood Total CO2 21.6, Arterial Blood Oxygen Saturation 97, Arterial Blood Base Excess -0.8, Mauri Test NA, Blood Gas Ventilator Setting NA, Blood Gas Inspired Oxygen NA 08/02/21 16:27: Glucometer 226H 08/02/21 19:55: Glucometer 162H 08/03/21 05:39: Glucometer 342H 08/03/21 08:38: White Blood Count 10.9, Red Blood Count 4.04L, Hemoglobin 12.0L, Hematocrit 35L, Mean Corpuscular Volume 87, Mean Corpuscular Hemoglobin 30, Mean Corpuscular Hemoglobin Concent 34, Red Cell Distribution Width 12.6, Platelet Count 243, Mean Platelet Volume 9.2, Sodium Level 137, Potassium Level 3.6, Chloride Level 105, Carbon Dioxide Level 21, Anion Gap 11, Blood Urea Nitrogen 14, Creatinine 0.77, Estimat Glomerular Filtration Rate 120, BUN/Creatinine Ratio 18, Glucose Level 249H, Calcium Level 8.4L Home Meds Active Reported Ondansetron Odt (Ondansetron) 4 Mg Tab.rapdis 4 Mg PO Q6H PRN Levemir Flextouch (Insulin Detemir) 100 Unit/1 Ml Insuln.pen 45 Unit SQ HS Pantoprazole Sodium 40 Mg Tablet.dr 40 Mg PO DAILY Carafate (Sucralfate) 1 Gm Tablet 1 Gm PO HS Lisinopril 10 Mg Tablet 10 Mg PO DAILY Novolog Flexpen (Insulin Aspart) 300 Units/3 Ml Solution 5 Units SQ AC Tylenol Pm Ex-Strength Caplet (Acetaminophen/Diphenhydramine) 1 Each Tablet 1 Each PO HS PRN Gabapentin 800 Mg Tablet 800 Mg PO TID Assessment/Pt DC Instructions Follow up with primary physician within a week of discharge. Discharge Diet: ADA Diet Activity as Tolerated: Yes Discharge Physical Examination Allergies: Coded Allergies: tramadol (Verified Adverse Reaction, Mild, N/V, 12/21/14) General Appearance: Other (sleeping, easily arousable) Respiratory: Lungs Clear, Normal Breath Sounds Cardiovascular: Regular Rate, Rhythm, No Murmur Gastrointestinal: Normal Bowel Sounds; No Distended; Tenderness (diffuse) Skin: Warm/Dry Neurologic/Psychiatric: Alert, Other (flat affect) CARRIE NELSON MD Aug 03, 2021 10:28
[2021-08-03 11:57] VITALS: BP 117/56
== END 2021-08-03 10:23 | disposition home or self-care (01) ==
LOC: EDUNIT# 11:09 → ER 11:10 → UNDOADMOB 13:23 → 4TH 13:23 → UNDODISOB 08-03 12:00
PROVIDERS: ADMIT Family Medicine; ATTEND Family Medicine
DX: E10.65 Type 1 diabetes mellitus with hyperglycemia (principal); R11.2 Nausea with vomiting, unspecified; R10.84 Generalized abdominal pain; F17.200 Nicotine dependence, unspecified, uncomplicated; F12.90 Cannabis use, unspecified, uncomplicated; Z79.4 Long term (current) use of insulin; Z88.5 Allergy status to narcotic agent
CPT/HCPCS: 80048; 80053; 81000; 82010; 82805; 82947 ×2; 85025; 85027; 93005; 96361; 96372; 96374; 99285; G0378; 36415

== ENCOUNTER 2021-08-12 15:50 | Emergency (ER) | payer SELFPAY ==
[~2021-08-12] VITALS: Ht 177.8 cm; Wt 88.5 kg
--- NOTE | 2021-08-12 16:23 | ED General ---
General Chief Complaint: Glucose Problems Stated Complaint: DKA Source of Information: Patient Exam Limitations: No Limitations History of Present Illness Date Seen by Provider: Aug 12, 2021 Time Seen by Provider: 16:15 Initial Comments Alvaro is a 36-year-old type I diabetic who presents to the emergency department by private vehicle today referred from [facility] with a chief complaint of nausea vomiting, ketones in his urine and abdominal pain. Alvaro states that he has been recently really trying to take control of his diabetes. But he thinks that he has been getting sick over the last few days with increasing nausea. He went for a posthospitalization follow-up today. The practitioner found the ketones in his urine and secondary to the nausea and abdominal pain decided to send him to the ER. Reportedly his sugar was in the 400 range at the clinic. He states he had just taken some insulin prior to his sugar being checked and he reports that he was down in the low 300 range when he checked it at home. He denies fevers or chills. No sore throat or runny nose. No significant cough or shortness of breath. Mid abdominal pain is present. He had a little diarrhea yesterday but has not had a bowel movement today. No problems with urination. He denies any skin wounds or rashes. He states that he is really upset about his ongoing diabetes management, I talked to him about mental health issues and he is willing to talk to his primary care provider about antidepressants. He was taken off Reglan at one point and is currently on Zofran for his nausea. My suspicion is that he has fairly significant diabetic gastroparesis. I am going to suggest that he actually restarts his Reglan. 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 He is not really eaten anything today. He has had sips of fluids/Pedialyte. Looks well laying in the bed, not tachycardic heart rate about 90. Blood pressure is good oxygen saturations are normal. All other review of systems reviewed and negative except as stated. Timing/Duration: 1-2 Days Severity: Moderate Associated Systoms: Nausea/Vomiting Allergies and Home Medications Allergies Coded Allergies: tramadol (Verified Adverse Reaction, Mild, N/V, 12/21/14) Patient Home Medication List Home Medication List Reviewed: Yes Acetaminophen/Diphenhydramine (Tylenol Pm Ex-Strength Caplet) 1 Each Tablet, 1 EACH PO HS PRN for SLEEP, (Reported) Entered as Reported by: ANTHONY BLAKELY on 05/02/21 1334 Gabapentin (Gabapentin) 800 Mg Tablet, 800 MG PO TID, (Reported) Entered as Reported by: SAMRA MCCORD on 08/24/20 1424 Insulin Aspart (Novolog Flexpen) 300 Units/3 Ml Solution, 5 UNITS SQ AC, (Reported) Entered as Reported by: SAMRA MCCORD on 06/07/21 0935 Insulin Detemir (Levemir Flextouch) 100 Unit/1 Ml Insuln.pen, 45 UNIT SQ HS, (Reported) Entered as Reported by: SAMRA MCCORD on 08/02/21 1522 Lisinopril (Lisinopril) 10 Mg Tablet, 10 MG PO DAILY, (Reported) Entered as Reported by: SAMRA MCCORD on 06/07/21 09 Metoclopramide HCl (Reglan) 10 Mg Tablet, 10 MG PO Q6H Prescribed by: JG VILLAVICENCIO on 08/12/21 1740 Ondansetron (Ondansetron Odt) 4 Mg Tab.rapdis, 4 MG PO Q6H PRN for NAUSEA/VOMITING-1ST LINE, (Reported) Entered as Reported by: SAMRA MCCORD on 08/02/21 1522 Pantoprazole Sodium (Pantoprazole Sodium) 40 Mg Tablet.dr, 40 MG PO DAILY, (Rep orted) Entered as Reported by: SAMRA MCCORD on 06/07/21 09 Sucralfate (Carafate) 1 Gm Tablet, 1 GM PO HS, (Reported) Entered as Reported by: SAMRA MCCORD on 06/07/21 0935 Review of Systems Review of Systems Constitutional: see HPI EENTM: no symptoms reported Respiratory: no symptoms reported Cardiovascular: no symptoms reported Gastrointestinal: abdominal pain, nausea Genitourinary: no symptoms reported Musculoskeletal: no symptoms reported Skin: no symptoms reported Psychiatric/Neurological: Depressed, Emotional Problems (realted to diabetes management) All Other Systems Reviewed Negative Unless Noted: Yes Past Pjlthbs-Lkjshx-Eewayb Hx Patient Social History Tobacco Use?: No Smoking Status: Never a Smoker Smokeless Tobacco Frequency: Never a User Use of E-Cig and/or Vaping dev: No Use of E-Cig and/or Vaping Abisai: Never a User Substance use?: Yes Substance type: Marijuana Substance frequency: Daily Alcohol Use?: No Pt feels they are or have been: No Immunizations Up To Date Tetanus Booster (TDap): Unknown First/Initial COVID19 Vaccinat: UNK Second COVID19 Vaccination Kumar: UNK Third COVID19 Vaccination Date: K COVID19 Vaccine Applications Development Consultant: [facility] Seasonal Allergies Seasonal Allergies: No Past Medical History Surgery/Hospitalization HX: GALLBLADDER Surgeries: Yes Abdominal, Gallbladder Respiratory: Yes (copd dx by patient) COPD Currently Using CPAP: No Currently Using BIPAP: No Cardiac: Yes Hypertension Neurological: Yes Neuropathy Reproductive Disorders: No Sexually Transmitted Disease: No HIV/AIDS: No Genitourinary: Yes Kidney Infection Gastrointestinal: Yes (ELEVATED LIVER ENZYMES, Hep A; CANNIBIS HYPEREMESIS; ) Gastroesophageal Reflux, Liver Disease/Jaundice, Esophagitis Musculoskeletal: Yes Arthritis, Scoliosis, Chronic Back Pain Endocrine: Yes (Type I) Diabetes, Insulin dep HEENT: No Hearing Impairment: Denies Cancer: No Psychosocial: Yes (POLYSUBSTANCE ABUSE) Depression Integumentary: No Blood Disorders: No Adverse Reaction/Blood Tranf: No Family Medical History Alcoholism 19 FATHER G8 BROTHER Congenital heart disease 19 FATHER Family history: Cardiovascular disease 19 FATHER, Onset:40's - 50 Family history: Diabetes mellitus 19 MOTHER Family history: Hypertension 19 FATHER Heart disease 19 FATHER History of - respiratory disease 19 FATHER History of drug abuse 19 MOTHER Hypercholesterolemia 19 FATHER Myocardial infarction 19 FATHER Seizure disorder 19 FATHER No Family History of: Abdominal aortic aneurysm Markos's disease Cancer Congestive heart failure Cystic fibrosis Dementia Dysphagia Family history: Allergy Family history: Alzheimer's disease Family history: Arthritis Family history: Asthma Family history: Breast disease Family history: Coronary thrombosis Family history: Gastrointestinal disease Family history: Glaucoma Family history: Osteoporosis Family history: Thyroid disorder Headache Hearing loss Hereditary disease History of - anemia History of - disorder Human immunodeficiency virus (HIV) seropositivity Infertile Kidney disease Malignant neoplasm of lung Parkinson's disease Prostate cancer Psychotic disorder Stroke Tuberculosis Visual impairment Heart Disease, Diabetes, Hypertension SOCIAL HISTORY: -SMOKES 1 PPD -History of DRUGS--+ IV METH USE, COCAINE USE, THC, RX DRUGS--ESPECIALLY HYDROCODONE AND ADDERALL -History of ETOH--HEAVY REGULAR/DAILY USE Physical Exam Vital Signs Vital Signs - First Documented 08/12/21 15:54 Temp 36.8 Pulse 98 Resp 20 B/P (MAP) 146/75 (98) O2 Delivery Room Air Capillary Refill : Height, Weight, BMI Height: 5'10.00" Weight: 240lbs. 0oz. [id number]; 28.28 BMI Method:Stated General Appearance: No Apparent Distress, WD/WN Eyes: Bilateral Eye Normal Inspection, Bilateral Eye PERRL, Bilateral Eye EOMI HEENT: Moist Mucous Membranes Neck: Normal Inspection Respiratory: Lungs Clear, Normal Breath Sounds, No Accessory Muscle Use, No Respiratory Distress Cardiovascular: Regular Rate, Rhythm (HR90's), Normal Peripheral Pulses, Other (brisk capillary refill) Gastrointestinal: Soft, Tenderness (diffuse tenderness to light palpation of the anterior abdomen. SLightly hyperactive BS. non distended.) Extremity: Normal Capillary Refill, Normal Inspection, Normal Range of Motion, Non Tender Neurologic/Psychiatric: Alert, Oriented x3, No Motor/Sensory Deficits Skin: Normal Color, Warm/Dry Progress/Results/Core Measures Suspected Sepsis SIRS Temperature: Pulse: Respiratory Rate: Laboratory Tests 08/12/21 16:31: White Blood Count 6.4 Blood Pressure / Mean: Laboratory Tests 08/12/21 16:31: Creatinine 0.87, Platelet Count 205, Total Bilirubin 0.9 Results/Orders Lab Results Laboratory Tests Test 08/12/21 16:01 08/12/21 16:31 08/12/21 17:21 08/12/21 18:07 Range/Units Glucometer 412 *H 421 *H 313 H 70-110 MG/DL White Blood Count 6.4 4.3-11.0 10^3/uL Red Blood Count 4.16 L 4.30-5.52 10^6/uL Hemoglobin 12.4 L 13.3-17.7 g/dL Hematocrit 36 L 40-54 % Mean Corpuscular Volume 87 80-99 fL Mean Corpuscular Hemoglobin 30 25-34 pg Mean Corpuscular Hemoglobin Concent 34 32-36 g/dL Red Cell Distribution Width 12.5 10.0-14.5 % Platelet Count 205 130-400 10^3/uL Mean Platelet Volume 8.9 L 9.0-12.2 fL Immature Granulocyte % (Auto) 1 % Neutrophils (%) (Auto) 71 42-75 % Lymphocytes (%) (Auto) 21 12-44 % Monocytes (%) (Auto) 7 0-12 % Eosinophils (%) (Auto) 0 0-10 % Basophils (%) (Auto) 1 0-10 % Neutrophils # (Auto) 4.5 1.8-7.8 10^3/uL Lymphocytes # (Auto) 1.4 1.0-4.0 10^3/uL Monocytes # (Auto) 0.4 0.0-1.0 10^3/uL Eosinophils # (Auto) 0.0 0.0-0.3 10^3/uL Basophils # (Auto) 0.0 0.0-0.1 10^3/uL Immature Granulocyte # (Auto) 0.0 0.0-0.1 10^3/uL Sodium Level 129 L 135-145 MMOL/L Potassium Level 5.2 H 3.6-5.0 MMOL/L Chloride Level 94 L 98-107 MMOL/L Carbon Dioxide Level 25 21-32 MMOL/L Anion Gap 10 5-14 MMOL/L Blood Urea Nitrogen 15 7-18 MG/DL Creatinine 0.87 0.60-1.30 MG/DL Estimat Glomerular Filtration Rate 116 BUN/Creatinine Ratio 17 Glucose Level 467 *H 70-105 MG/DL Calcium Level 8.8 8.5-10.1 MG/DL Corrected Calcium 9.0 8.5-10.1 MG/DL Total Bilirubin 0.9 0.1-1.0 MG/DL Aspartate Amino Transf (AST/SGOT) 24 5-34 U/L Alanine Aminotransferase (ALT/SGPT) 24 0-55 U/L Alkaline Phosphatase 71 40-136 U/L Total Protein 5.9 L 6.4-8.2 GM/DL Albumin 3.8 3.2-4.5 GM/DL My Orders Orders - JG VILLAVICENCIO MD Ed Iv/Invasive Line Start (08/12/21 16:16) Cbc With Automated Diff (08/12/21 16:16) Comprehensive Metabolic Panel (08/12/21 16:16) Ekg Tracing (08/12/21 16:16) Ns Iv 1000 Ml (Sodium Chloride 0.9%) (08/12/21 16:30) Pantoprazole Injection (Protonix Injecti (08/12/21 16:30) Droperidol Inj (Ed Only) (Inapsine Inj ( (08/12/21 16:45) Diphenhydramine Injection (Benadryl Inje (08/12/21 16:45) Ns Iv 1000 Ml (Sodium Chloride 0.9%) (08/12/21 17:15) Accucheck Stat ONCE (08/12/21 17:15) Insulin (Regular) Human (Novolin R (Per (08/12/21 17:22) Accucheck Stat ONCE (08/12/21 18:02) Medications Given in ED Current Medications Medications Dose Ordered Sig/Fer Route Start Time Stop Time Status Last Admin Dose Admin Diphenhydramine HCl 25 mg ONCE ONCE IV 08/12/21 16:45 08/12/21 16:46 DC 08/12/21 16:59 25 MG Droperidol 2.5 mg ONCE ONCE IV 08/12/21 16:45 08/12/21 16:46 DC 08/12/21 16:59 2.5 MG Pantoprazole 40 mg ONCE ONCE IV 08/12/21 16:30 08/12/21 16:31 DC 08/12/21 16:28 40 MG Vital Signs/I&O 08/12/21 15:54 Temp 36.8 Pulse 98 Resp 20 B/P (MAP) 146/75 (98) O2 Delivery Room Air Capillary Refill : Point of Care Testing Finger Stick Blood Glucose: 412 Progress Note : Time: 17:30 Progress Note Alvaro's blood sugar still a little over 400. He has had 1 liter of fluid and some Inapsine and benadryl. Will give a second liter and some IV regular insulin to get further control of blood sugar. His labs look good. Potassium slightly elevated at 5.2. No anion gap. Normal CO2. Not tachycardic. not actively vomiting. I do not suspect any DKA at this time. No concern for an infectious process. I believe that he has some degree of diabetic gastroparesis and plan to start him back on some reglan for the next 2 weeks. He can supplement with the zofran as needed. I think he needs to talk to his provider at [facility] about an antidepressant, as he is fairly (understandably) depressed about his ongoing diabetes management and chronic pain and nausea and vomiting. Will recheck another blood sugar after second liter and insulin. at this time does not need in patient management. 1811 Discharge BS 313. going home. ECG Initial ECG Impression Date: Aug 12, 2021 Initial ECG Impression Time: 16:33 Initial ECG Rate: 74 Initial ECG Rhythm: Normal Sinus Initial ECG Intervals: Normal Initial ECG Intervals LA 141 QRS 89 QTc 434 No ectopy; no ST elevation or depression Departure Impression Primary Impression: Hyperglycemia due to diabetes mellitus Additional Impressions: Abdominal pain, chronic, generalized Chronic nausea Disposition: 01 HOME, SELF-CARE Condition: Stable Departure-Patient Inst. Decision time for Depature: 17:35 Referrals: [facility] (PCP/Family) Primary Care Physician Patient Instructions: Diabetes and Diet Add. Discharge Instructions: Re-start your reglan 2-4 times a day 30 minutes before eating. This will help nausea. You can supplement your nausea medications with zofran every 8 hours as needed. 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 Talk to your primary care provider about possibly starting on an anti-depressant medication to help deal with your feelings about your diabetes and chronic abdominal pain and nausea. It can take several weeks to have improvement after starting an anti-depressant (3-4 weeks). Come back to the ER for persistent vomiting, blood sugars that are out of control, or any other new, emergent and concerning symptoms. Scripts Metoclopramide HCl (Reglan) 10 Mg Tablet 10 MG PO Q6H, #60 TAB take 30 minutes before meals every 6 hours Prov: JG VILLAVICENCIO MD 08/12/21 Copy Copies To 1: WESTON DOTY KATHRYN M MD Aug 12, 2021 16:23
[2021-08-12] MEDS ORDERED: NS IV 1000 ML 1,000 ML IV SCH ×2 (16:30→17:15)
[2021-08-12] MEDS ORDERED: PANTOPRAZOLE 40 MG (PROTONIX) VIAL IV ONE (16:30)
[2021-08-12 16:39] LABS: BASOPHILS % (AUTO) 1 % (0-10); EOSINOPHILS % (AUTO) 0 % (0-10); HEMATOCRIT 36 % (40-54); HEMOGLOBIN 12.4 g/dL (13.3-17.7); LYMPHOCYTES # (AUTO) 1.4 10^3/uL (1.0-4.0); LYMPHOCYTES % (AUTO) 21 % (12-44); MEAN CORPUSCULAR HEMOGLOBIN 30 pg (25-34); MEAN CORPUSCULAR HGB CONC 34 g/dL (32-36); MEAN CORPUSCULAR VOLUME 87 fL (80-99); MEAN PLATELET VOLUME 8.9 fL (9.0-12.2); MONOCYTES # (AUTO) 0.4 10^3/uL (0.0-1.0); MONOCYTES % (AUTO) 7 % (0-12); NEUTROPHILS # (AUTO) 4.5 10^3/uL (1.8-7.8); NEUTROPHILS % (AUTO) 71 % (42-75); PLATELET COUNT 205 10^3/uL (130-400); WHITE BLOOD COUNT 6.4 10^3/uL (4.3-11.0)
[2021-08-12] MEDS ORDERED: DROPERIDOL 5 MG/2 ML (INAPSINE) ED ONLY! IV ONE (16:45)
[2021-08-12] MEDS ORDERED: diphenhydrAMINE 50 MG/ML INJ (BENADRYL) IV ONE (16:45)
[2021-08-12 16:51] LABS: ALBUMIN 3.8 GM/DL (3.2-4.5); POTASSIUM 5.2 MMOL/L (3.6-5.0)
[2021-08-12 16:52] LABS: CALCIUM 8.8 MG/DL (8.5-10.1)
[2021-08-12 16:53] LABS: TOTAL PROTEIN 5.9 GM/DL (6.4-8.2)
[2021-08-12 16:55] LABS: BILIRUBIN,TOTAL 0.9 MG/DL (0.1-1.0)
[2021-08-12 16:57] LABS: CREATININE SERUM 0.87 MG/DL (0.60-1.30)
[2021-08-12] MEDS ORDERED: inSUlin (REGULAR) HUMAN 1 UNIT/0.01 ML (CHARGE PER UNIT) IV STA (17:22)
[2021-08-12] MEDS ORDERED: METO-310 PO (17:40)
[2021-08-12 18:09] VITALS: BP 134/73
== END 2021-08-12 18:09 | disposition home or self-care (01) ==
LOC: EDUNIT# 15:50 → ER 15:52
DX: E10.65 Type 1 diabetes mellitus with hyperglycemia (principal); G89.29 Other chronic pain; R10.84 Generalized abdominal pain; R11.2 Nausea with vomiting, unspecified; F17.210 Nicotine dependence, cigarettes, uncomplicated
CPT/HCPCS: 36415; 80053; 82947; 85025; 93005

== ENCOUNTER 2021-09-24 12:01 | Inpatient (IN) | payer SELFPAY ==
[~2021-09-24] VITALS: Ht 177.8 cm; Wt 88.9 kg
[2021-09-24 12:58] LABS: BILIRUBIN,URINE NEGATIVE (NEGATIVE); CLARITY,URINE CLEAR; COLOR,URINE YELLOW; GLUCOSE, URINE (UA) 3+ (NEGATIVE); KETONES,URINE 3+ (NEGATIVE); LEUKOCYTE ESTERASE ,URINE NEGATIVE (NEGATIVE); NITRITE,URINE NEGATIVE (NEGATIVE); PH,URINE 5.5 (5-9); PROTEIN,URINE NEGATIVE (NEGATIVE)
[2021-09-24 13:06] LABS: BACTERIA,URINE NEGATIVE /HPF
[2021-09-24] MEDS ORDERED: NS IV 1000 ML 1,000 ML IV SCH ×4 (13:15→17:00)
[2021-09-24] MEDS ORDERED: inSUlin (REGULAR) HUMAN 1 UNIT/0.01 ML (CHARGE PER UNIT) SC STA (13:23)
--- NOTE | 2021-09-24 13:44 | ED Psychosocial ---
General Chief Complaint: Substance Abuse Stated Complaint: DRUG WITHDRAWAL Nursing Triage Note: PT AMB TO [facility] WITH COMPLAINT OF WITHDRAWING FROM [facility]. STATES LAST USED ON SUNDAY. PT STATES HE IS NAUSEATED, BODY ACHES, AND SHAKY. HAS NOT TAKEN INSULIN. History of Present Illness Date Seen by Provider: Sep 24, 2021 Time Seen by Provider: 12:30 Initial Comments 36 year old IDDM, presents for acute fentanyl withdrawal. He took Levamir 30 Units this am. He has mild nausea, denies vomiting. He reports feeling achy, tremors, and not taking his medications. He has not been eating regularly either. He reports using fentanyl for approximately the last 6 weeks and is reporting that he has been buying off the street. He would like to discontinue this. She also uses marijuana regularly. He has been seen in this emergency department multiple times for cyclical vomiting and DKA. He denies any meth or other IV drug use. He has been to inpatient and outpatient rehab in the past. He is requesting voluntary detox. He has left A on multiple occasions, discussed this and patient agreeable to treatment. Timing/Duration: intermittent Severity: mild Associated Symptoms: anxiety, impaired concentration Allergies and Home Medications Allergies Coded Allergies: tramadol (Verified Adverse Reaction, Mild, N/V, 12/21/14) Patient Home Medication List Home Medication List Reviewed: Yes Acetaminophen/Diphenhydramine (Tylenol Pm Ex-Strength Caplet) 1 Each Tablet, 1 EACH PO HS PRN for SLEEP, (Reported) Entered as Reported by: ANTHONY BLAKELY on 05/02/21 1334 Gabapentin (Gabapentin) 800 Mg Tablet, 800 MG PO TID, (Reported) Entered as Reported by: SAMRA MCCORD on 08/24/20 1424 Insulin Aspart (Novolog Flexpen) 300 Units/3 Ml Solution, 5 UNITS SQ AC, (Repor amanda) Entered as Reported by: SAMRA MCCORD on 06/07/21 0935 Insulin Detemir (Levemir Flextouch) 100 Unit/1 Ml Insuln.pen, 45 UNIT SQ HS, (Reported) Entered as Reported by: SAMRA MCCORD on 08/02/21 1522 Lisinopril (Lisinopril) 10 Mg Tablet, 10 MG PO DAILY, (Reported) Entered as Reported by: SAMRA MCCORD on 06/07/21 0935 Metoclopramide HCl (Reglan) 10 Mg Tablet, 10 MG PO Q6H Prescribed by: JG VILLAVICENCIO on 08/12/21 1740 Ondansetron (Ondansetron Odt) 4 Mg Tab.rapdis, 4 MG PO Q6H PRN for NAUSEA/VOMITING-1ST LINE, (Reported) Entered as Reported by: SAMRA MCCORD on 08/02/21 1522 Pantoprazole Sodium (Pantoprazole Sodium) 40 Mg Tablet.dr, 40 MG PO DAILY, (Reported) Entered as Reported by: SAMRA MCCORD on 06/07/21 09 Sucralfate (Carafate) 1 Gm Tablet, 1 GM PO HS, (Reported) Entered as Reported by: SAMRA MCCORD on 06/07/21 0935 Review of Systems Constitutional: see HPI, malaise, weakness EENTM: see HPI, no symptoms reported Respiratory: no symptoms reported, see HPI; No cough, No dyspnea on exertion Cardiovascular: no symptoms reported, see HPI; No palpitations Gastrointestinal: no symptoms reported, see HPI Genitourinary: no symptoms reported, see HPI Skin: no symptoms reported, see HPI Psychiatric/Neurological: See HPI, Emotional Problems; Denies Headache, Denies Seizure; Tremors (very minimal) All Other Systems Reviewed Negative Unless Noted: Yes Past Dpvogde-Dkfphs-Kodfje Hx Patient Social History Tobacco Use?: No Use of E-Cig and/or Vaping dev: No Substance use?: Yes Substance type: Opiates/Opioids, Marijuana Alcohol Use?: No Pt feels they are or have been: No Immunizations Up To Date Tetanus Booster (TDap): Unknown First/Initial COVID19 Vaccinat: UNK Second COVID19 Vaccination Kumar: UNK Third COVID19 Vaccination Date: UNK Seasonal Allergies Seasonal Allergies: No Past Medical History Surgery/Hospitalization HX: GALLBLADDER Surgeries: Yes Abdominal, Gallbladder Respiratory: Yes (copd dx by patient) COPD Currently Using CPAP: No Currently Using BIPAP: No Cardiac: Yes Hypertension Neurological: Yes Neuropathy Reproductive Disorders: No Sexually Transmitted Disease: No HIV/AIDS: No Genitourinary: Yes Kidney Infection Gastrointestinal: Yes (ELEVATED LIVER ENZYMES, Hep A; CANNIBIS HYPEREMESIS; ) Gastroesophageal Reflux, Liver Disease/Jaundice, Esophagitis Musculoskeletal: Yes Arthritis, Scoliosis, Chronic Back Pain Endocrine: Yes (Type I) Diabetes, Insulin dep HEENT: No Hearing Impairment: Denies Cancer: No Psychosocial: Yes (POLYSUBSTANCE ABUSE) Depression Integumentary: No Blood Disorders: No Adverse Reaction/Blood Tranf: No Family Medical History Reviewed Nursing Family Hx Alcoholism 19 FATHER G8 BROTHER Congenital heart disease 19 FATHER Family history: Cardiovascular disease 19 FATHER, Onset:40's - 50 Family history: Diabetes mellitus 19 MOTHER Family history: Hypertension 19 FATHER Heart disease 19 FATHER History of - respiratory disease 19 FATHER History of drug abuse 19 MOTHER Hypercholesterolemia 19 FATHER Myocardial infarction 19 FATHER Seizure disorder 19 FATHER No Family History of: Abdominal aortic aneurysm Delta's disease Cancer Congestive heart failure Cystic fibrosis Dementia Dysphagia Family history: Allergy Family history: Alzheimer's disease Family history: Arthritis Family history: Asthma Family history: Breast disease Family history: Coronary thrombosis Family history: Gastrointestinal disease Family history: Glaucoma Family history: Osteoporosis Family history: Thyroid disorder Headache Hearing loss Hereditary disease History of - anemia History of - disorder Human immunodeficiency virus (HIV) seropositivity Infertile Kidney disease Malignant neoplasm of lung Parkinson's disease Prostate cancer Psychotic disorder Stroke Tuberculosis Visual impairment Heart Disease, Diabetes, Hypertension SOCIAL HISTORY: -SMOKES 1 PPD -History of DRUGS--+ IV METH USE, COCAINE USE, THC, RX DRUGS--ESPECIALLY HYDROCODONE AND ADDERALL -History of ETOH--HEAVY REGULAR/DAILY USE Physical Exam Vital Signs - First Documented 09/24/21 12:15 Pulse 104 Resp 20 B/P (MAP) 150/99 (116) Pulse Ox 100 O2 Delivery Room Air Capillary Refill : Less Than 3 Seconds Height, Weight, BMI Height: 5'10.00" Weight: 240lbs. 0oz. [id number]; 28.00 BMI Method:Stated General Appearance: WD/WN, mild distress, cachetic HEENT: PERRL/EOMI, normal ENT inspection, TMs normal, pharynx normal Neck: non-tender, full range of motion, supple, normal inspection Respiratory: chest non-tender, lungs clear, normal breath sounds Cardiovascular: normal peripheral pulses, no edema Gastrointestinal: normal bowel sounds, non tender, soft Extremities: normal range of motion, non-tender, normal inspection Neurologic/Psychiatric: no motor/sensory deficits, alert, normal mood/affect, oriented x 3 Appearance/Memory: appropriate appearance, appropriate insight, neat Behavior/Eye Contact: cooperative, good eye contact, normal speech Thoughts/Hallucinations: normal thought pattern, no apparent hallucination; No auditory hallucinations, No delusions, No flight of ideas, No grandiose Skin: normal color, warm/dry Progress/Results/Core Measures Results/Orders Lab Results Laboratory Tests Test 09/24/21 12:27 09/24/21 12:52 09/24/21 13:24 09/24/21 14:08 Range/Units Glucometer 537 *H 70-110 MG/DL Urine Color YELLOW Urine Clarity CLEAR Urine pH 5.5 5-9 Urine Specific [place] 1.020 1.016-1.022 Urine Protein NEGATIVE NEGATIVE Urine Glucose (UA) 3+ H NEGATIVE Urine Ketones 3+ H NEGATIVE Urine Nitrite NEGATIVE NEGATIVE Urine Bilirubin NEGATIVE NEGATIVE Urine Urobilinogen 0.2 < = 1.0 MG/DL Urine Leukocyte Esterase NEGATIVE NEGATIVE Urine RBC (Auto) NEGATIVE NEGATIVE Urine RBC NONE /HPF Urine WBC NONE /HPF Urine Crystals NONE /LPF Urine Bacteria NEGATIVE /HPF Urine Casts NONE /LPF Urine Mucus NEGATIVE /LPF Urine Culture Indicated NO Urine Opiates Screen POSITIVE H NEGATIVE Urine Oxycodone Screen NEGATIVE NEGATIVE Urine Methadone Screen NEGATIVE NEGATIVE Urine Propoxyphene Screen NEGATIVE NEGATIVE Urine Barbiturates Screen NEGATIVE NEGATIVE Ur Tricyclic Antidepressants Screen NEGATIVE NEGATIVE Urine Phencyclidine Screen NEGATIVE NEGATIVE Urine Amphetamines Screen NEGATIVE NEGATIVE Urine Methamphetamines Screen NEGATIVE NEGATIVE Urine Benzodiazepines Screen NEGATIVE NEGATIVE Urine Cocaine Screen NEGATIVE NEGATIVE Urine Cannabinoids Screen POSITIVE H NEGATIVE White Blood Count 16.5 H 4.3-11.0 10^3/uL Red Blood Count 4.68 4.30-5.52 10^6/uL Hemoglobin 13.7 13.3-17.7 g/dL Hematocrit 39 L 40-54 % Mean Corpuscular Volume 83 80-99 fL Mean Corpuscular Hemoglobin 29 25-34 pg Mean Corpuscular Hemoglobin Concent 35 32-36 g/dL Red Cell Distribution Width 11.8 10.0-14.5 % Platelet Count 264 130-400 10^3/uL Mean Platelet Volume 9.5 9.0-12.2 fL Immature Granulocyte % (Auto) 1 % Neutrophils (%) (Auto) 85 H 42-75 % Lymphocytes (%) (Auto) 11 L 12-44 % Monocytes (%) (Auto) 3 0-12 % Eosinophils (%) (Auto) 0 0-10 % Basophils (%) (Auto) 0 0-10 % Neutrophils # (Auto) 14.1 H 1.8-7.8 10^3/uL Lymphocytes # (Auto) 1.8 1.0-4.0 10^3/uL Monocytes # (Auto) 0.6 0.0-1.0 10^3/uL Eosinophils # (Auto) 0.0 0.0-0.3 10^3/uL Basophils # (Auto) 0.0 0.0-0.1 10^3/uL Immature Granulocyte # (Auto) 0.1 0.0-0.1 10^3/uL Neutrophils % (Manual) 86 % Lymphocytes % (Manual) 11 % Monocytes % (Manual) 2 % Band Neutrophils 1 % Microcytosis SLIGHT Sodium Level 126 L 135-145 MMOL/L Potassium Level 5.1 H 3.6-5.0 MMOL/L Chloride Level 94 L 98-107 MMOL/L Carbon Dioxide Level 9 *L 21-32 MMOL/L Anion Gap 23 H 5-14 MMOL/L Blood Urea Nitrogen 25 H 7-18 MG/DL Creatinine 1.14 0.60-1.30 MG/DL Estimat Glomerular Filtration Rate 87 BUN/Creatinine Ratio 22 Glucose Level 549 *H 70-105 MG/DL Calcium Level 9.3 8.5-10.1 MG/DL Corrected Calcium 9.1 8.5-10.1 MG/DL Total Bilirubin 0.9 0.1-1.0 MG/DL Aspartate Amino Transf (AST/SGOT) 29 5-34 U/L Alanine Aminotransferase (ALT/SGPT) 93 H 0-55 U/L Alkaline Phosphatase 100 40-136 U/L Total Protein 6.8 6.4-8.2 GM/DL Albumin 4.2 3.2-4.5 GM/DL Serum Alcohol < 10 <10 MG/DL Opiates Screen TNP:Duplicate Test Buprenorphine Screen TNP:Duplicate Test Blood Oxycodone Screen TNP:Duplicate Test Blood Methadone Screen TNP:Duplicate Test Blood Barbiturates Screen TNP:Duplicate Test Phencyclidine (PCP) Screen TNP:Duplicate Test Amphetamines Screen TNP:Duplicate Test Blood Methamphetamines Screen TNP:Duplicate Test Blood Benzodiazepines Screen TNP:Duplicate Test Blood Cocaine/Metabolite Screen TNP:Duplicate Test Marijuana (THC) Screen TNP:Duplicate Test Blood Drug Screen Comment TNP:Duplicate Test Test 09/24/21 14:35 09/24/21 14:56 09/24/21 17:04 09/24/21 17:25 Range/Units Blood Gas Puncture Site RT RAD Blood Gas Patient Temperature 36.8 Arterial Blood pH 7.38 7.37-7.43 Arterial Blood Partial Pressure CO2 21 L 35-45 MMHG Arterial Blood Partial Pressure O2 101 H 79-93 MMHG Arterial Blood HCO3 12 *L 23-27 MMOL/L Arterial Blood Total CO2 13.0 L 21.0-31.0 MMOL/L Arterial Blood Oxygen Saturation 98 94-100 % Arterial Blood Base Excess -12.0 L -2.5-2.5 MMOL/L Mauri Test YES-POS Blood Gas Ventilator Setting NO Blood Gas Inspired Oxygen ROOM AIR Glucometer 393 H 334 H 70-110 MG/DL Sodium Level 132 L 135-145 MMOL/L Potassium Level 4.5 3.6-5.0 MMOL/L Chloride Level 102 98-107 MMOL/L Carbon Dioxide Level 11 L 21-32 MMOL/L Anion Gap 19 H 5-14 MMOL/L Blood Urea Nitrogen 22 H 7-18 MG/DL Creatinine 0.90 0.60-1.30 MG/DL Estimat Glomerular Filtration Rate 115 BUN/Creatinine Ratio 24 Glucose Level 311 H 70-105 MG/DL Calcium Level 8.9 8.5-10.1 MG/DL Beta-Hydroxybutyrate (Chem panel) 3.73 H 0.00-0.27 MMOL/L Test 09/24/21 18:03 Range/Units Glucometer 289 H 70-110 MG/DL My Orders Orders - NANY CHOUDHARY Accucheck Stat ONCE (09/24/21 12:21) Alcohol (09/24/21 12:21) Ua Culture If Indicated (09/24/21 12:21) Ed Iv/Invasive Line Start (09/24/21 13:11) Ns Iv 1000 Ml (Sodium Chloride 0.9%) (09/24/21 13:15) Insulin (Regular) Human (Novolin R (Per (09/24/21 13:23) Cbc With Automated Diff (09/24/21 13:47) Comprehensive Metabolic Panel (09/24/21 13:47) Manual Differential (09/24/21 13:24) Hydroxyzine Cap/Tab (Vistaril) (09/24/21 13:56) Drug Screen 9 Serum (Send Out) (09/24/21 13:58) Arterial Blood Gas (09/24/21 14:35) Ondansetron Injection (Zofran Injectio (09/24/21 14:45) Accucheck Stat ONCE (09/24/21 14:36) Ed Iv/Invasive Line Start (09/24/21 14:54) Ns Iv 1000 Ml (Sodium Chloride 0.9%) (09/24/21 15:00) Sodium Bicarbonate 8.4% Syr (Sodium Bica (09/24/21 14:54) Drug Screen Stat (Urine) (09/24/21 12:52) Lorazepam Injection (Ativan Injection) (09/24/21 16:11) Ed Iv/Invasive Line Start (09/24/21 16:11) Ns Iv 1000 Ml (Sodium Chloride 0.9%) (09/24/21 16:15) Medications Given in ED Current Medications Medications Dose Ordered Sig/Fer Route Start Time Stop Time Status Last Admin Dose Admin Ondansetron HCl 8 mg ONCE ONCE IVP 09/24/21 14:45 09/24/21 14:46 DC 09/24/21 14:48 8 MG Vital Signs/I&O 09/24/21 09/24/21 09/24/21 09/24/21 12:15 16:25 16:50 17:00 Pulse 104 95 99 90 Resp 20 16 16 B/P (MAP) 150/99 (116) 151/92 154/60 168/95 Pulse Ox 100 99 98 O2 Delivery Room Air Room Air Room Air 09/24/21 09/24/21 09/24/21 17:08 17:15 18:00 Pulse 92 98 Resp 18 B/P (MAP) 130/75 Pulse Ox 99 98 O2 Delivery Room Air Room Air Blood Pressure Mean: 116 [facility]SB[facility] Bedside Testing Finger Stick Blood Glucose: 537 Blood Glucose Action Taken: PROVIDER NOTIFIED Progress Progress Note : Time: 12:30 Progress Note Patient seen and evaluated, will obtain Accu-Chek, labs and continue to monitor. Patient is agreeable to inpatient or outpatient voluntary treatment. No complaints at this time 1300 accucheck 537, will give normal saline 1 L per IV and 5 units regular insulin subcu. We will check ABGs. Spoke to Susan no inpatient beds for narcotic dependence/detox. 1400 patient complaining of agitation and withdrawal symptoms, no seizure activity, Vistaril 50 mg orally. Spoke to Catrachita Cano, no beds for acute det ox. CO2 9, Gap 23. 1430 patient complaining of mild nausea, will give Zofran 8 mg IV. Normal saline 1 L. ABG showed bicarb of 12. Will give 1 amp bicarb. 1510 repeat accucheck 393. He has received 2 L of normal saline. He has urinated 1 time. He is taking sips of water and eating ice chips. He has had no further tremors or nausea. 1600 patient requesting additional medicine to help withdrawal symptoms. Will give Ativan 1 mg IV. Patient has been cooperative since admission. Spoke to Dr. Jackson, agreeable with plan to admit to ICU for DKA, will use ICU policy and start insulin drip there. No other complaints or requests at this time. Departure Impression Primary Impression: Fentanyl dependence Additional Impressions: hyperglycemia, dka Diabetes mellitus, insulin dependent (IDDM), uncontrolled Withdrawal from opioids Marijuana use Disposition: ADMITTED INPATIENT Condition: Critical Admissions Decision to Admit/Date: Sep 24, 2021 Time/Decision to Admit Time: 15:00 Departure-Patient Inst. Referrals: [facility] (PCP/Family) Primary Care Physician Patient Instructions: ALCOHOL AND SUBSTANCE ABUSE Copy Copies To 1: PADMINI ROSALES MD, AMY ARNP Sep 24, 2021 13:44
[2021-09-24 13:52] LABS: BASOPHILS % (AUTO) 0 % (0-10); EOSINOPHILS % (AUTO) 0 % (0-10); HEMATOCRIT 39 % (40-54); HEMOGLOBIN 13.7 g/dL (13.3-17.7); LYMPHOCYTES # (AUTO) 1.8 10^3/uL (1.0-4.0); LYMPHOCYTES % (AUTO) 11 % (12-44); MEAN CORPUSCULAR HEMOGLOBIN 29 pg (25-34); MEAN CORPUSCULAR HGB CONC 35 g/dL (32-36); MEAN CORPUSCULAR VOLUME 83 fL (80-99); MEAN PLATELET VOLUME 9.5 fL (9.0-12.2); MONOCYTES # (AUTO) 0.6 10^3/uL (0.0-1.0); MONOCYTES % (AUTO) 3 % (0-12); NEUTROPHILS # (AUTO) 14.1 10^3/uL (1.8-7.8); NEUTROPHILS % (AUTO) 85 % (42-75); PLATELET COUNT 264 10^3/uL (130-400); WHITE BLOOD COUNT 16.5 10^3/uL (4.3-11.0)
[2021-09-24 13:56] LABS: ALBUMIN 4.2 GM/DL (3.2-4.5); POTASSIUM 5.1 MMOL/L (3.6-5.0)
[2021-09-24] MEDS ORDERED: hydrOXYzine (VISTARIL/ATARAX) 25 MG capsule/tablet PO STA (13:56)
[2021-09-24 13:57] LABS: CALCIUM 9.3 MG/DL (8.5-10.1)
[2021-09-24 13:58] LABS: TOTAL PROTEIN 6.8 GM/DL (6.4-8.2)
[2021-09-24 14:00] LABS: BILIRUBIN,TOTAL 0.9 MG/DL (0.1-1.0)
[2021-09-24 14:02] LABS: CREATININE SERUM 1.14 MG/DL (0.60-1.30)
[2021-09-24 14:21] LABS: BAND NEUTROPHILS 1 %; LYMPHOCYTES % (MANUAL) 11 %; MICROCYTOSIS SLIGHT; MONOCYTES % (MANUAL) 2 %; NEUTROPHILS % (MANUAL) 86 %
[2021-09-24 14:45] LABS: ABG OXYGEN SATURATION 98 % (94-100); ABG PCO2 21 MMHG (35-45); ABG PH 7.38 (7.37-7.43); ABG PO2 101 MMHG (79-93)
[2021-09-24] MEDS ORDERED: ONDANSETRON 4 MG/2 ML (SDV) Z0FRAN IVP ONE (14:45)
[2021-09-24 14:50] LABS: ALLENS TEST YES-POS; INSPIRED O2 ROOM AIR; PATIENT TEMP 36.8; VENTILATOR NO
[2021-09-24] MEDS ORDERED: SODIUM BICARB 8.4% 50 MEQ/50 ML (ABBOTT) SYR IV STA (14:54)
[2021-09-24 15:42] LABS: AMPHETAMINE SCREEN, URINE NEGATIVE (NEGATIVE); BARBITURATE SCREEN URINE NEGATIVE (NEGATIVE); BENZODIAZEPINES SCREEN URINE NEGATIVE (NEGATIVE); CANNABINOID SCREEN, URINE POSITIVE (NEGATIVE); COCAINE SCREEN URINE NEGATIVE (NEGATIVE); METHADONE STAT NEGATIVE (NEGATIVE); METHAMPHETAMINE SCREEN URINE S NEGATIVE (NEGATIVE); OPIATE SCREEN URINE POSITIVE (NEGATIVE); OXYCODONE STAT NEGATIVE (NEGATIVE); PROPOXYPHENE STAT NEGATIVE (NEGATIVE); TRICYCLIC ANTIDEPRESSANTS SCRE NEGATIVE (NEGATIVE)
[2021-09-24] MEDS ORDERED: LORazepam INJ 2 MG/ML (ATIVAN) VIAL IVP STA (16:11)
--- NOTE | 2021-09-24 16:52 | Tele-ICU Consult ---
Progress Note 36 y/o male presents to ED staing he is withdrawing from fentanyl Found to be in DKA with glucose of 549 and CO2 of 9 Plan: ICU admission for IV fluids and insulin drip Laboratory Tests 09/24/21 13:24 Focused Exam Height, Weight, BMI Height: 5'10.00" Weight: 240lbs. 0oz. 108.775141up; 28.00 BMI Method:Stated Results Labs Labs Laboratory Tests 09/24/21 12:27: Glucometer 537*H 09/24/21 12:52: Urine Color YELLOW, Urine Clarity CLEAR, Urine pH 5.5, Urine Specific [place] 1.020, Urine Protein NEGATIVE, Urine Glucose (UA) 3+H, Urine Ketones 3+H, Urine Nitrite NEGATIVE, Urine Bilirubin NEGATIVE, Urine Urobilinogen 0.2, Urine L eukocyte Esterase NEGATIVE, Urine RBC (Auto) NEGATIVE, Urine RBC NONE, Urine WBC NONE, Urine Crystals NONE, Urine Bacteria NEGATIVE, Urine Casts NONE, Urine Mucus NEGATIVE, Urine Culture Indicated NO, Urine Opiates Screen POSITIVEH, Urine Oxycodone Screen NEGATIVE, Urine Methadone Screen NEGATIVE, Urine Propoxyphene Screen NEGATIVE, Urine Barbiturates Screen NEGATIVE, Ur Tricyclic Antidepressants Screen NEGATIVE, Urine Phencyclidine Screen NEGATIVE, Urine Amphetamines Screen NEGATIVE, Urine Methamphetamines Screen NEGATIVE, Urine Benzodiazepines Screen NEGATIVE, Urine Cocaine Screen NEGATIVE, Urine Cannabinoids Screen POSITIVEH 09/24/21 13:24: White Blood Count 16.5H, Red Blood Count 4.68, Hemoglobin 13.7, Hematocrit 39L, Mean Corpuscular Volume 83, Mean Corpuscular Hemoglobin 29, Mean Corpuscular Hemoglobin Concent 35, Red Cell Distribution Width 11.8, Platelet Count 264, Mean Platelet Volume 9.5, Immature Granulocyte % (Auto) 1, Neutrophils (%) (Auto) 85H, Lymphocytes (%) (Auto) 11L, Monocytes (%) (Auto) 3, Eosinophils (%) (Auto) 0, Basophils (%) (Auto) 0, Neutrophils # (Auto) 14.1H, Lymphocytes # (Auto) 1.8, Monocytes # (Auto) 0.6, Eosinophils # (Auto) 0.0, Basophils # (Auto) 0.0, Immature Granulocyte # (Auto) 0.1, Neutrophils % (Manual) 86, Lymphocytes % (Manual) 11, Monocytes % (Manual) 2, Band Neutrophils 1, Microcytosis SLIGHT, Sodium Level 126L, Potassium Level 5.1H, Chloride Level 94L, Carbon Dioxide Level 9*L, Anion Gap 23H, Blood Urea Nitrogen 25H, Creatinine 1.14, Estimat Glomerular Filtration Rate 87, BUN/Creatinine Ratio 22, Glucose Level 549*H, Calcium Level 9.3, Corrected Calcium 9.1, Total Bilirubin 0.9, Aspartate Amino Transf (AST/SGOT) 29, Alanine Aminotransferase (ALT/SGPT) 93H, Alkaline Phosphatase 100, Total Protein 6.8, Albumin 4.2, Serum Alcohol < 10 09/24/21 14:35: Blood Gas Puncture Site RT RAD, Blood Gas Patient Temperature 36.8, Arterial Blood pH 7.38, Arterial Blood Partial Pressure CO2 21L, Arterial Blood Partial Pressure O2 101H, Arterial Blood HCO3 12*L, Arterial Blood Total CO2 13.0L, Arterial Blood Oxygen Saturation 98, Arterial Blood Base Excess -12.0L, Mauri Test YES-POS, Blood Gas Ventilator Setting NO, Blood Gas Inspired Oxygen ROOM AIR 09/24/21 14:56: Glucometer 393H DONTE NAIDU MD Sep 24, 2021 16:52
[2021-09-24] MEDS ORDERED: POTASSIUM CL 10MEQ/50ML IVPB 50 ML IV SCH (17:00)
[2021-09-24] MEDS ORDERED: D5 1/2 NS 1000 ML IV SOLUTION 1,000 ML IV ONE (17:10)
[2021-09-24] MEDS ORDERED: POTASSIUM CL 10MEQ/50ML IVPB 50 ML IV ONE ×2 (17:10→19:38)
[2021-09-24] MEDS ORDERED: 1/2 NS IV SOLUTION 1,000 ML IV ONE (17:10)
[2021-09-24] MEDS: POTASSIUM CL 10MEQ/50ML IVPB 50 ML IV SCH ×5 (17:28→23:24)
[2021-09-24] MEDS: 1/2 NS IV SOLUTION 1,000 ML IV SCH ×2 (17:28→21:06)
[2021-09-24 17:43] LABS: POTASSIUM 4.5 MMOL/L (3.6-5.0)
[2021-09-24 17:44] LABS: CALCIUM 8.9 MG/DL (8.5-10.1)
[2021-09-24 17:48] LABS: CREATININE SERUM 0.9 MG/DL (0.60-1.30)
[2021-09-24] MEDS ORDERED: LORazepam INJ 2 MG/ML (ATIVAN) VIAL IVP ONE (20:15)
[2021-09-24] MEDS ORDERED: METHADONE 10 MG (DOLOPHINE) TAB PO STA (20:18)
--- NOTE | 2021-09-24 20:18 | Tele-ICU Progress Note ---
Subjective Date Seen by a Provider: Sep 24, 2021 Time Seen by a Provider: 20:16 Sepsis Event Evaluation Height, Weight, BMI Height: 5'10.00" Weight: 240lbs. 0oz. 108.393806oi; 28.69 BMI Method:Stated Exam Exam Patient acknowledged, consented, and participated in this virtual visit which was conducted using real time audio/video Vital Signs Date Time Temp Pulse Resp B/P (MAP) Pulse Ox O2 Delivery O2 Flow Rate FiO2 09/24/21 18:00 98 18 130/75 98 Room Air 09/24/21 17:15 99 Room Air 09/24/21 17:08 92 09/24/21 17:00 90 168/95 Room Air 09/24/21 16:50 99 16 154/60 98 09/24/21 16:25 95 16 151/92 99 Room Air 09/24/21 12:15 104 20 150/99 (116) 100 Room Air Height & Weight Height: 5'10.00" Weight: 240lbs. 0oz. 108.632528ek; 28.69 BMI Method:Stated General Appearance: Anxious Capillary Refill: Less Than 3 Seconds Gastrointestinal: normal bowel sounds, non tender, soft Results Lab Laboratory Tests 09/24/21 13:24 09/24/21 17:25 Assessment/Plan Assessment/Plan Pt has symptoms consistent with fentanyl withdrwal- pt is using fentanyl daily; we will start methadone/ repeat ativan dose BETTY CANTU MD Sep 24, 2021 20:18
[2021-09-24] MEDS ORDERED: ONDANSETRON 4 MG/2 ML (SDV) Z0FRAN IV PRN (20:45)
[2021-09-24] MEDS: ENOXAPARIN 40 MG/0.4 ML (LOVENOX) SYR SC SCH (20:57)
[2021-09-24 21:35] LABS: POTASSIUM 4.1 MMOL/L (3.6-5.0)
[2021-09-24 21:36] LABS: CALCIUM 8.5 MG/DL (8.5-10.1)
[2021-09-24 21:40] LABS: CREATININE SERUM 0.8 MG/DL (0.60-1.30)
[2021-09-24] MEDS: morphine INJ 4 MG/ML 1 ML (VIAL/SYRINGE) IVP PRN (22:20)
[2021-09-24] MEDS: D5 1/2 NS 1000 ML IV SOLUTION 1,000 ML IV SCH (23:10)
[2021-09-25] MEDS: 1/2 NS IV SOLUTION 1,000 ML IV SCH ×3 (01:41→10:28)
[2021-09-25] MEDS: POTASSIUM CL 10MEQ/50ML IVPB 50 ML IV SCH ×6 (01:41→07:54)
[2021-09-25] MEDS: morphine INJ 4 MG/ML 1 ML (VIAL/SYRINGE) IVP PRN ×6 (02:09→22:32)
[2021-09-25] MEDS: D5 1/2 NS 1000 ML IV SOLUTION 1,000 ML IV SCH ×2 (03:26→07:51)
[2021-09-25] MEDS: LORazepam INJ 2 MG/ML (ATIVAN) VIAL IV PRN ×4 (04:26→21:37)
[2021-09-25 05:29] LABS: BASOPHILS % (AUTO) 0 % (0-10); EOSINOPHILS % (AUTO) 0 % (0-10); HEMATOCRIT 33 % (40-54); HEMOGLOBIN 11.5 g/dL (13.3-17.7); LYMPHOCYTES # (AUTO) 2.2 10^3/uL (1.0-4.0); LYMPHOCYTES % (AUTO) 18 % (12-44); MEAN CORPUSCULAR HEMOGLOBIN 29 pg (25-34); MEAN CORPUSCULAR HGB CONC 35 g/dL (32-36); MEAN CORPUSCULAR VOLUME 83 fL (80-99); MONOCYTES # (AUTO) 0.7 10^3/uL (0.0-1.0); MONOCYTES % (AUTO) 6 % (0-12); NEUTROPHILS # (AUTO) 9.2 10^3/uL (1.8-7.8); NEUTROPHILS % (AUTO) 76 % (42-75); PLATELET COUNT 218 10^3/uL (130-400); WHITE BLOOD COUNT 12.2 10^3/uL (4.3-11.0)
[2021-09-25 05:42] LABS: ALBUMIN 3.3 GM/DL (3.2-4.5); POTASSIUM 3.6 MMOL/L (3.6-5.0)
[2021-09-25 05:43] LABS: CALCIUM 8.1 MG/DL (8.5-10.1)
[2021-09-25 05:44] LABS: TOTAL PROTEIN 5.3 GM/DL (6.4-8.2)
[2021-09-25 05:46] LABS: BILIRUBIN,TOTAL 0.6 MG/DL (0.1-1.0)
[2021-09-25 05:47] LABS: PHOSPHORUS 1.8 MG/DL (2.3-4.7)
[2021-09-25 05:48] LABS: CREATININE SERUM 0.71 MG/DL (0.60-1.30)
[2021-09-25 05:51] LABS: MAGNESIUM 1.5 MG/DL (1.6-2.4)
[2021-09-25] MEDS ORDERED: MAGNESIUM 1 GM/100 ML IVPB 100 ML IV SCH (06:00)
[2021-09-25] MEDS ORDERED: KCL 20 MEQ TAB (K-DUR) PO SCH (06:00)
[2021-09-25] MEDS ORDERED: KCL 20 MEQ TAB (K-DUR) PO ONE (08:00)
--- NOTE | 2021-09-25 08:19 | Tele-ICU Progress Note ---
Subjective Date Seen by a Provider: Sep 25, 2021 Time Seen by a Provider: 08:17 Subjective/Events-last exam 36 yo M with opiod withdrawal, On PRN Ativan, morphine for withdrawal PRN, UDS + for opiods Was in DKA now resolved Sepsis Event Evaluation Height, Weight, BMI Height: 5'10.00" Weight: 240lbs. 0oz. 108.050471fr; 28.69 BMI Method:Stated Exam Exam Patient acknowledged, consented, and participated in this virtual visit which was conducted using real time audio/video Vital Signs Date Time Temp Pulse Resp B/P (MAP) Pulse Ox O2 Delivery O2 Flow Rate FiO2 09/25/21 07:36 37.0 09/25/21 07:00 74 09/25/21 06:00 80 26 142/92 100 Room Air 09/25/21 05:00 77 26 141/88 99 Room Air 09/25/21 04:00 85 32 145/86 99 Room Air 09/25/21 03:35 99 Room Air 09/25/21 03:00 82 31 131/70 99 Room Air 09/25/21 02:00 88 33 137/66 98 Room Air 09/25/21 01:00 85 26 131/75 98 Room Air 09/25/21 01:00 85 09/25/21 00:00 87 21 131/67 98 Room Air 09/25/21 00:00 99 Room Air 09/24/21 23:00 90 27 131/61 99 Room Air 09/24/21 22:00 90 27 140/81 98 Room Air 09/24/21 21:00 90 29 130/80 98 Room Air 09/24/21 20:00 98 29 147/82 98 Room Air 09/24/21 20:00 99 Room Air 09/24/21 19:00 93 25 99 Room Air 09/24/21 19:00 100 09/24/21 19:00 100 09/24/21 18:00 98 18 130/75 98 Room Air 09/24/21 17:15 99 Room Air 09/24/21 17:08 92 09/24/21 17:00 90 168/95 Room Air 09/24/21 16:50 99 16 154/60 98 09/24/21 16:25 95 16 151/92 99 Room Air 09/24/21 12:15 104 20 150/99 (116) 100 Room Air I & O 09/25/21 07:00 Intake Total 7350 ml Output Total 700 ml Balance 6650 ml Height & Weight Height: 5'10.00" Weight: 240lbs. 0oz. 108.952888od; 28.69 BMI Method:Stated General Appearance: Anxious Respiratory: Lungs Clear Cardiovascular: Regular Rate, Rhythm Capillary Refill: Less Than 3 Seconds Gastrointestinal: normal bowel sounds, non tender, soft Extremity: No Pedal Edema Neurologic/Psychiatric: Alert, Oriented x3 Results Lab Laboratory Tests 09/24/21 13:24 09/24/21 17:25 09/24/21 21:05 09/25/21 05:12 Assessment/Plan Assessment/Plan Opiod withdrawal, will continue continue morphine for withdrawal Sz DKA is resolved, pt is eating but is having vomiting, once this resolves can go to floor Critical Care: Critically Ill Patient Time spent with patient (mins): 25 DONTE CONCEPCION MD Sep 25, 2021 08:19
[2021-09-25] MEDS ORDERED: METHADONE 10 MG (DOLOPHINE) TAB PO SCH (09:00)
[2021-09-25] MEDS ORDERED: inSUlin ASPART (NovoLOG) 1 UNIT/0.01 ML (CHARGE PER UNIT) SC NR (09:15)
--- NOTE | 2021-09-25 10:59 | History & Physical-Hospitalist ---
History of Present Illness HPI/Chief Complaint Initial Comments 36 year old IDDM, presents for acute fentanyl withdrawal. He took Levamir 30 Units this am. He has mild nausea, denies vomiting. He reports feeling achy, tremors, and not taking his medications. He has not been eating regularly either. He reports using fentanyl for approximately the last 6 weeks and is reporting that he has been buying off the street. He would like to discontinue this. She also uses marijuana regularly. He has been seen in this emergency department multiple times for cyclical vomiting and DKA. He denies any meth or other IV drug use. He has been to inpatient and outpatient rehab in the past. He is requesting voluntary detox. He has left A on multiple occasions, discussed this and patient agreeable to treatment. Upon my arrival the patient was sleeping easily arousable keeping p.o. fluid down denying nausea with no evidence for tachypnea. He was not diaphoretic and appeared to be in no acute distress having earlier received morphine for narcotic withdrawal. Date Seen 09/25/21 Time Seen by a Provider: 09:00 Attending Physician Minor Carmona MD [facility] Center/[facility] Referring Physician Date of Admission Sep 24, 2021 at 16:00 Home Medications & Allergies Home Medications Reviewed patient Home Medication Reconciliation performed by pharmacy medication reconciliations weed science research technician and/or nursing. Patients Allergies have been reviewed. Allergies Allergies Coded Allergies tramadol (Verified Adverse Reaction, Mild, N/V, 12/21/14) Past Ixgmdgz-Kzhejo-Izplas Hx Patient Social History Tobacco Use?: No Use of E-Cig and/or Vaping dev: No Substance use?: Yes Substance type: Opiates/Opioids, Marijuana Alcohol Use?: No Pt feels they are or have been: No Immunizations Up To Date Date of Influenza Vaccine: Apr 04, 2021 First/Initial COVID19 Vaccinat: 2020 Second COVID19 Vaccination Kumar: 2020 Tetanus Booster (TDap): More Than 5 Years Hepatitis A: No Hepatitis B: No Date of Pneumonia Vaccine: Aug 27, 2011 Seasonal Allergies Seasonal Allergies: No Current Status Advance Directives: No Communicates: Verbally Primary Language: Yoruba Preferred Spoken Language: Yoruba Is interpretation needed?: No Past Medical History Surgeries: Abdominal, Gallbladder COPD Currently Using CPAP: No Currently Using BIPAP: No Hypertension Neuropathy Sexually Transmitted Disease: No HIV/AIDS: No Kidney Infection Gastroesophageal Reflux, Liver Disease/Jaundice, Esophagitis Arthritis, Scoliosis, Chronic Back Pain Diabetes, Insulin dep Hearing Impairment: Denies Depression Blood Disorders: No Adverse Reaction/Blood Tranf: No Past Medical History 1. DM, insulin requiring 2. Hypertension 3. Alcoholism- reports stopped drinking 4. 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 Tobaccoism 6. GERD 7. Peipheral Neuropathy Past Surgical History Denies Family Medical History Reviewed Nursing Family Hx Alcoholism 19 FATHER G8 BROTHER Congenital heart disease 19 FATHER Family history: Cardiovascular disease 19 FATHER, Onset:40's - 50 Family history: Diabetes mellitus 19 MOTHER Family history: Hypertension 19 FATHER Heart disease 19 FATHER History of - respiratory disease 19 FATHER History of drug abuse 19 MOTHER Hypercholesterolemia 19 FATHER Myocardial infarction 19 FATHER Seizure disorder 19 FATHER No Family History of: Abdominal aortic aneurysm Trezevant's disease Cancer Congestive heart failure Cystic fibrosis Dementia Dysphagia Family history: Allergy Family history: Alzheimer's disease Family history: Arthritis Family history: Asthma Family history: Breast disease Family history: Coronary thrombosis Family history: Gastrointestinal disease Family history: Glaucoma Family history: Osteoporosis Family history: Thyroid disorder Headache Hearing loss Hereditary disease History of - anemia History of - disorder Human immunodeficiency virus (HIV) seropositivity Infertile Kidney disease Malignant neoplasm of lung Parkinson's disease Prostate cancer Psychotic disorder Stroke Tuberculosis Visual impairment Heart Disease, Diabetes, Hypertension SOCIAL HISTORY: -SMOKES 1 PPD -History of DRUGS--+ IV METH USE, COCAINE USE, THC, RX DRUGS--ESPECIALLY HYDROCODONE AND ADDERALL -History of ETOH--HEAVY REGULAR/DAILY USE Review of Systems Constitutional: see HPI Physical Exam Physical Exam Vital Signs Vital Signs - First Documented 09/24/21 09/25/21 12:15 07:36 Temp 37.0 Pulse 104 Resp 20 B/P (MAP) 150/99 (116) Pulse Ox 100 O2 Delivery Room Air Capillary Refill : Less Than 3 Seconds Height, Weight, BMI Height: 5'10.00" Weight: 240lbs. 0oz. [id number]; 28.69 BMI Method:Stated General Appearance: No Apparent Distress Respiratory: Chest Non Tender, Lungs Clear, Normal Breath Sounds, No Accessory Muscle Use, No Respiratory Distress Cardiovascular: Regular Rate, Rhythm, No Edema, No Gallop, No JVD, No Murmur, Normal Peripheral Pulses Gastrointestinal: Normal Bowel Sounds, No Organomegaly, No Pulsatile Mass, Non Tender, Soft Extremity: Normal Capillary Refill, Normal Inspection, Normal Range of Motion, Non Tender, No Calf Tenderness, No Pedal Edema Results Results/Procedures Labs Laboratory Tests 09/24/21 13:24 09/24/21 17:25 09/24/21 21:05 09/25/21 05:12 Patient resulted labs reviewed. Assessment/Plan Admission Diagnosis See assessment and plan Admission Status: Inpatient Order (span 2 midnights) Reason for Inpatient Admission: See assessment and plan Assessment and Plan 1. Diabetic ketoacidosis resolving with narrowing gap. Patient inadvertently pulled out IVs apparently in his sleep will initiate basal bolus therapy monitor for a while longer potential transfer to the floor if basic metabolic panel later today is stable. 2. Opiate addiction with fentanyl withdrawal moderated on morphine patient would be a good candidate for methadone but unable to procure through pharmacy. Will need social service consultation Sunday to look and outpatient or inpatient treatment options. MINOR CARMONA MD Sep 25, 2021 10:59
[2021-09-25] MEDS: inSUlin ASPART (NovoLOG) 1 UNIT/0.01 ML (CHARGE PER UNIT) SC SCH ×2 (13:28→17:18)
[2021-09-25 14:25] LABS: CALCIUM 8.2 MG/DL (8.5-10.1); CREATININE SERUM 0.73 MG/DL (0.60-1.30); POTASSIUM 3.4 MMOL/L (3.6-5.0)
[2021-09-25] MEDS: ENOXAPARIN 40 MG/0.4 ML (LOVENOX) SYR SC SCH (16:14)
[2021-09-26] MEDS: morphine INJ 4 MG/ML 1 ML (VIAL/SYRINGE) IVP PRN ×5 (02:03→23:53)
[2021-09-26] MEDS: LORazepam INJ 2 MG/ML (ATIVAN) VIAL IV PRN ×5 (04:35→21:12)
[2021-09-26 05:54] LABS: BASOPHILS % (AUTO) 0 % (0-10); EOSINOPHILS % (AUTO) 0 % (0-10); HEMATOCRIT 33 % (40-54); HEMOGLOBIN 11.6 g/dL (13.3-17.7); LYMPHOCYTES # (AUTO) 1.5 10^3/uL (1.0-4.0); LYMPHOCYTES % (AUTO) 21 % (12-44); MEAN CORPUSCULAR HEMOGLOBIN 29 pg (25-34); MEAN CORPUSCULAR HGB CONC 36 g/dL (32-36); MEAN CORPUSCULAR VOLUME 82 fL (80-99); MEAN PLATELET VOLUME 9.3 fL (9.0-12.2); MONOCYTES # (AUTO) 0.5 10^3/uL (0.0-1.0); MONOCYTES % (AUTO) 7 % (0-12); NEUTROPHILS % (AUTO) 71 % (42-75); PLATELET COUNT 155 10^3/uL (130-400)
[2021-09-26 06:01] LABS: ALBUMIN 3.3 GM/DL (3.2-4.5)
[2021-09-26 06:02] LABS: POTASSIUM 3.9 MMOL/L (3.6-5.0)
[2021-09-26 06:03] LABS: CALCIUM 8.1 MG/DL (8.5-10.1)
[2021-09-26 06:04] LABS: TOTAL PROTEIN 5.2 GM/DL (6.4-8.2)
[2021-09-26 06:06] LABS: BILIRUBIN,TOTAL 0.6 MG/DL (0.1-1.0)
[2021-09-26 06:08] LABS: CREATININE SERUM 0.78 MG/DL (0.60-1.30)
[2021-09-26] MEDS: inSUlin ASPART (NovoLOG) 1 UNIT/0.01 ML (CHARGE PER UNIT) SC SCH ×3 (06:34→16:36)
[2021-09-26 08:20] VITALS: BP 132/68
--- NOTE | 2021-09-26 11:21 | Progress Note ---
Subjective Subjective/Events-last exam Patient states that he is feeling better today but still having nausea, BILLINGS and dizziness. States that he was taking Fentynl off the streets and would like to get clean. He is undecided about rehab or outpatient rehab at this time. Review of Systems General: Fatigue, Malaise HEENT: Head Aches Pulmonary: No Dyspnea Cardiovascular: No: Chest Pain, Palpitations Gastrointestinal: Nausea, Abdominal Pain; No: Vomiting Neurological: Weakness Objective Exam Last Set of Vital Signs Vital Signs Date Time Temp Pulse Resp B/P (MAP) Pulse Ox O2 Delivery O2 Flow Rate FiO2 09/26/21 08:30 Room Air 09/26/21 08:20 37.2 70 18 132/68 (89) 100 Capillary Refill : Less Than 3 Seconds I&O Intake and Output 09/26/21 00:00 Intake Total 3130 ml Output Total 1500 ml Balance 1630 ml Intake Oral 880 ml IV Total 2250 ml Output Urine Total 1500 ml # Voids 3 # Bowel Movements 3 General: Alert, Oriented X3, Mild Distress Lungs: Clear to Auscultation, Normal Air Movement Heart: Regular Rate, No Murmurs Abdomen: Normal Bowel Sounds, Soft, No Tenderness, No Masses Extremities: No Edema, No Tenderness/Swelling Neuro: Normal Speech Results/Procedures Lab Laboratory Tests 09/25/21 13:58: Sodium Level 133L, Potassium Level 3.4L, Chloride Level 102, Carbon Dioxide Level 20L, Anion Gap 11, Blood Urea Nitrogen 16, Creatinine 0.73, Estimat Glomerular Filtration Rate 122, BUN/Creatinine Ratio 22, Glucose Level 141H, Calcium Level 8.2L, Beta-Hydroxybutyrate (Chem panel) 0.18 09/25/21 16:05: Glucometer 75 09/25/21 20:23: Glucometer 135H 09/26/21 05:31: Glucometer 431*H 09/26/21 05:48: White Blood Count 7.0, Red Blood Count 3.98L, Hemoglobin 11.6L, Hematocrit 33L, Mean Corpuscular Volume 82, Mean Corpuscular Hemoglobin 29, Mean Corpuscular Hemoglobin Concent 36, Red Cell Distribution Width 11.2, Platelet Count 155, Mean Platelet Volume 9.3, Immature Granulocyte % (Auto) 1, Neutrophils (%) (Auto) 71, Lymphocytes (%) (Auto) 21, Monocytes (%) (Auto) 7, Eosinophils (%) (Auto) 0, Basophils (%) (Auto) 0, Neutrophils # (Auto) 5.0, Lymphocytes # (Auto) 1.5, Monocytes # (Auto) 0.5, Eosinophils # (Auto) 0.0, Basophils # (Auto) 0.0, Immature Granulocyte # (Auto) 0.0, Sodium Level 126L, Potassium Level 3.9, Chloride Level 96L, Carbon Dioxide Level 19L, Anion Gap 11, Blood Urea Nitrogen 16, Creatinine 0.78, Estimat Glomerular Filtration Rate 120, BUN/Creatinine Ratio 21, Glucose Level 456*H, Calcium Level 8.1L, Corrected Calcium 8.7, Total Bilirubin 0.6, Aspartate Amino Transf (AST/SGOT) 18, Alanine Aminotransferase (ALT/SGPT) 45, Alkaline Phosphatase 67, Total Protein 5.2L, Albumin 3.3 09/26/21 06:20: Glucometer 426*H 09/26/21 07:19: Glucometer 428*H 09/26/21 10:18: Glucometer 368H Assessment/Plan Assessment/Plan (1) Withdrawal from opioids Status: Acute Assessment & Plan: 09/26: Currently requiring IV Morphine and having significant symptoms, Discussed the importance of rehab and patient is undecided (2) Fentanyl dependence Status: Acute (3) Diabetes mellitus, insulin dependent (IDDM), uncontrolled Onset Date: ~ 06/04/2007 Status: Chronic Assessment & Plan: 09/26: Continue home insulin, DKA resulted ALFRED MORGAN MD Sep 26, 2021 11:21
[2021-09-26 11:38] VITALS: BP 116/71
[2021-09-26 16:10] VITALS: BP 104/64
[2021-09-26] MEDS: ENOXAPARIN 40 MG/0.4 ML (LOVENOX) SYR SC SCH (16:37)
[2021-09-26 20:05] VITALS: BP 120/65
[2021-09-26 21:05] VITALS: BP 120/65
[2021-09-27 00:15] VITALS: BP 128/77
[2021-09-27] MEDS: LORazepam INJ 2 MG/ML (ATIVAN) VIAL IV PRN ×3 (01:50→10:29)
[2021-09-27 04:26] VITALS: BP 125/76
[2021-09-27 06:17] LABS: BASOPHILS # (AUTO) 0.1 10^3/uL (0.0-0.1); BASOPHILS % (AUTO) 1 % (0-10); EOSINOPHILS # (AUTO) 0.1 10^3/uL (0.0-0.3); EOSINOPHILS % (AUTO) 1 % (0-10); HEMATOCRIT 36 % (40-54); HEMOGLOBIN 12.7 g/dL (13.3-17.7); LYMPHOCYTES # (AUTO) 2.2 10^3/uL (1.0-4.0); LYMPHOCYTES % (AUTO) 45 % (12-44); MEAN CORPUSCULAR HEMOGLOBIN 29 pg (25-34); MEAN CORPUSCULAR HGB CONC 35 g/dL (32-36); MEAN CORPUSCULAR VOLUME 83 fL (80-99); MEAN PLATELET VOLUME 9.3 fL (9.0-12.2); MONOCYTES # (AUTO) 0.5 10^3/uL (0.0-1.0); MONOCYTES % (AUTO) 9 % (0-12); NEUTROPHILS # (AUTO) 2.1 10^3/uL (1.8-7.8); NEUTROPHILS % (AUTO) 43 % (42-75); PLATELET COUNT 151 10^3/uL (130-400); WHITE BLOOD COUNT 4.9 10^3/uL (4.3-11.0)
[2021-09-27 06:42] LABS: ALBUMIN 3.4 GM/DL (3.2-4.5); BILIRUBIN,TOTAL 0.6 MG/DL (0.1-1.0); CALCIUM 8.3 MG/DL (8.5-10.1); CREATININE SERUM 0.74 MG/DL (0.60-1.30); POTASSIUM 4.1 MMOL/L (3.6-5.0); TOTAL PROTEIN 5.5 GM/DL (6.4-8.2)
[2021-09-27] MEDS: inSUlin ASPART (NovoLOG) 1 UNIT/0.01 ML (CHARGE PER UNIT) SC SCH ×3 (06:50→17:33)
[2021-09-27 07:24] VITALS: BP 127/76
[2021-09-27] MEDS: morphine INJ 4 MG/ML 1 ML (VIAL/SYRINGE) IVP PRN (10:38)
[2021-09-27 11:02] VITALS: BP 115/75
[2021-09-27] MEDS: HYDROcodone/APAP 5 MG/325 MG (LORTAB) TAB PO PRN ×2 (15:11→23:15)
[2021-09-27 16:00] VITALS: BP 110/56
[2021-09-27] MEDS: ENOXAPARIN 40 MG/0.4 ML (LOVENOX) SYR SC SCH (17:33)
[2021-09-27 20:00] VITALS: BP 140/88
[2021-09-27] MEDS ORDERED: ONDANSETRON 4 MG/2 ML (SDV) Z0FRAN IV PRN ×2 (20:30→22:30)
--- NOTE | 2021-09-27 22:31 | Progress Note ---
Subjective Subjective/Events-last exam Patient states that he is feeling much better. Will transition to oral medications. He is interested in Rehab for substance abuse. Will work on discharge from hospital to rehab. Review of Systems General: Fatigue Gastrointestinal: Nausea, Abdominal Pain Neurological: Weakness Objective Exam Last Set of Vital Signs Vital Signs Date Time Temp Pulse Resp B/P (MAP) Pulse Ox O2 Delivery O2 Flow Rate FiO2 09/27/21 20:00 36.6 96 18 140/88 (105) 99 Room Air 09/27/21 08:49 0.00 Capillary Refill : Less Than 3 Seconds I&O Intake and Output 09/27/21 00:00 Intake Total 1800 ml Balance 1800 ml Intake Oral 1800 ml # Voids 5 # Bowel Movements 1 General: Alert, Oriented X3, No Acute Distress Lungs: Clear to Auscultation, Normal Air Movement Heart: Regular Rate, No Murmurs Abdomen: Normal Bowel Sounds, Soft, No Tenderness Extremities: No Edema, No Tenderness/Swelling Neuro: Normal Gait, Normal Speech Results/Procedures Lab Laboratory Tests 09/27/21 01:48: Glucometer 247H 09/27/21 05:06: Glucometer 311H 09/27/21 06:07: White Blood Count 4.9, Red Blood Count 4.32, Hemoglobin 12.7L, Hematocrit 36L, Mean Corpuscular Volume 83, Mean Corpuscular Hemoglobin 29, Mean Corpuscular Hemoglobin Concent 35, Red Cell Distribution Width 11.7, Platelet Count 151, Mean Platelet Volume 9.3, Immature Granulocyte % (Auto) 0, Neutrophils (%) (Auto) 43, Lymphocytes (%) (Auto) 45H, Monocytes (%) (Auto) 9, Eosinophils (%) (Auto) 1, Basophils (%) (Auto) 1, Neutrophils # (Auto) 2.1, Lymphocytes # (Auto) 2.2, Monocytes # (Auto) 0.5, Eosinophils # (Auto) 0.1, Basophils # (Auto) 0.1, Immature Granulocyte # (Auto) 0.0, Sodium Level 130L, Potassium Level 4.1, Chloride Level 97L, Carbon Dioxide Level 21, Anion Gap 12, Blood Urea Nitrogen 16, Creatinine 0.74, Estimat Glomerular Filtration Rate 122, BUN/Creatinine Ratio 22, Glucose Level 398H, Calcium Level 8.3L, Corrected Calcium 8.8, Total Bilirubin 0.6, Aspartate Amino Transf (AST/SGOT) 18, Alanine Aminotransferase (ALT/SGPT) 43, Alkaline Phosphatase 68, Total Protein 5.5L, Albumin 3.4 09/27/21 11:00: Glucometer 224H 09/27/21 17:11: Glucometer 102 09/27/21 20:43: Glucometer 189H Assessment/Plan Assessment/Plan (1) Withdrawal from opioids Status: Acute Assessment & Plan: 09/26: Currently requiring IV Morphine and having significant symptoms, Discussed the importance of rehab and patient is undecided 09/27: Patient doing much better.Will transition to oral medications. Called Dr Vee and when we get an admit date to [facility] we can do a quick suboxone induction with rapid taper (2) Fentanyl dependence Status: Acute (3) Diabetes mellitus, insulin dependent (IDDM), uncontrolled Onset Date: ~ 06/04/2007 Status: Chronic Assessment & Plan: 09/26: Continue home insulin, DKA resulted ALFRED MORGAN MD Sep 27, 2021 22:31
[2021-09-28 00:22] VITALS: BP 127/60
[2021-09-28 04:01] VITALS: BP 135/70
[2021-09-28] MEDS: HYDROcodone/APAP 5 MG/325 MG (LORTAB) TAB PO PRN ×4 (05:43→23:58)
[2021-09-28 06:01] LABS: ALBUMIN 3.5 GM/DL (3.2-4.5); POTASSIUM 4.7 MMOL/L (3.6-5.0)
[2021-09-28 06:02] LABS: CALCIUM 8.6 MG/DL (8.5-10.1)
[2021-09-28 06:04] LABS: TOTAL PROTEIN 5.6 GM/DL (6.4-8.2)
[2021-09-28 06:05] LABS: BILIRUBIN,TOTAL 0.7 MG/DL (0.1-1.0)
[2021-09-28 06:07] LABS: CREATININE SERUM 0.87 MG/DL (0.60-1.30)
[2021-09-28 06:16] LABS: BASOPHILS % (AUTO) 1 % (0-10); EOSINOPHILS # (AUTO) 0.1 10^3/uL (0.0-0.3); EOSINOPHILS % (AUTO) 2 % (0-10); HEMATOCRIT 35 % (40-54); HEMOGLOBIN 12.6 g/dL (13.3-17.7); LYMPHOCYTES # (AUTO) 1.9 10^3/uL (1.0-4.0); LYMPHOCYTES % (AUTO) 39 % (12-44); MEAN CORPUSCULAR HEMOGLOBIN 30 pg (25-34); MEAN CORPUSCULAR HGB CONC 36 g/dL (32-36); MEAN CORPUSCULAR VOLUME 83 fL (80-99); MEAN PLATELET VOLUME 9.9 fL (9.0-12.2); MONOCYTES # (AUTO) 0.3 10^3/uL (0.0-1.0); MONOCYTES % (AUTO) 7 % (0-12); NEUTROPHILS # (AUTO) 2.5 10^3/uL (1.8-7.8); NEUTROPHILS % (AUTO) 51 % (42-75); PLATELET COUNT 161 10^3/uL (130-400); WHITE BLOOD COUNT 4.8 10^3/uL (4.3-11.0)
[2021-09-28] MEDS: inSUlin ASPART (NovoLOG) 1 UNIT/0.01 ML (CHARGE PER UNIT) SC SCH ×3 (06:42→16:42)
[2021-09-28 08:00] VITALS: BP 149/79
[2021-09-28] MEDS: morphine INJ 4 MG/ML 1 ML (VIAL/SYRINGE) IVP PRN ×5 (09:02→21:03)
[2021-09-28] MEDS: LORazepam 0.5 MG (ATIVAN) TABLET PO PRN ×4 (10:57→22:58)
[2021-09-28 11:44] VITALS: BP 122/69
[2021-09-28 16:00] VITALS: BP 128/70
[2021-09-28] MEDS: ENOXAPARIN 40 MG/0.4 ML (LOVENOX) SYR SC SCH (16:43)
[2021-09-28 20:00] VITALS: BP 119/56
--- NOTE | 2021-09-28 20:19 | Progress Note ---
Subjective Subjective/Events-last exam Patients states that he has not felt good since the ativan got titrated down. Added some PO ativan and he is feeling better. Review of Systems Gastrointestinal: Nausea, Vomiting, Abdominal Pain Neurological: Weakness Objective Exam Last Set of Vital Signs Vital Signs Date Time Temp Pulse Resp B/P (MAP) Pulse Ox O2 Delivery O2 Flow Rate FiO2 09/28/21 16:00 37.2 56 18 128/70 (89) 99 Room Air 09/28/21 08:41 0.00 Capillary Refill : Less Than 3 Seconds I&O Intake and Output 09/28/21 00:00 Intake Total 2030 ml Balance 2030 ml Intake Oral 2030 ml # Voids 9 General: Alert, Oriented X3, No Acute Distress Lungs: Clear to Auscultation, Normal Air Movement Heart: Regular Rate, No Murmurs Abdomen: Soft, No Tenderness Results/Procedures Lab Laboratory Tests 09/27/21 20:43: Glucometer 189H 09/28/21 05:06: Glucometer 445*H 09/28/21 05:43: White Blood Count 4.8, Red Blood Count 4.24L, Hemoglobin 12.6L, Hematocrit 35L, Mean Corpuscular Volume 83, Mean Corpuscular Hemoglobin 30, Mean Corpuscular Hemoglobin Concent 36, Red Cell Distribution Width 11.6, Platelet Count 161, Mean Platelet Volume 9.9, Immature Granulocyte % (Auto) 0, Neutrophils (%) (Auto) 51, Lymphocytes (%) (Auto) 39, Monocytes (%) (Auto) 7, Eosinophils (%) (Auto) 2, Basophils (%) (Auto) 1, Neutrophils # (Auto) 2.5, Lymphocytes # (Auto) 1.9, Monocytes # (Auto) 0.3, Eosinophils # (Auto) 0.1, Basophils # (Auto) 0.0, Immature Granulocyte # (Auto) 0.0, Sodium Level 128L, Potassium Level 4.7, Chloride Level 96L, Carbon Dioxide Level 20L, Anion Gap 12, Blood Urea Nitrogen 19H, Creatinine 0.87, Estimat Glomerular Filtration Rate 116, BUN/Creatinine Ratio 22, Glucose Level 490*H, Calcium Level 8.6, Corrected Calcium 9.0, Total Bilirubin 0.7, Aspartate Amino Transf (AST/SGOT) 20, Alanine Aminotransferase (ALT/SGPT) 40, Alkaline Phosphatase 69, Total Protein 5.6L, Albumin 3.5 09/28/21 11:02: Glucometer 361H 09/28/21 16:37: Glucometer 151H Assessment/Plan Assessment/Plan (1) Withdrawal from opioids Status: Acute Assessment & Plan: 09/26: Currently requiring IV Morphine and having significant symptoms, Discussed the importance of rehab and patient is undecided 09/27: Patient doing much better.Will transition to oral medications. Called Dr Vee and when we get an admit date to [facility] we can do a quick suboxone induction with rapid taper 09/28: Plan to transition to [facility] for suboxone induction and rapid taper (2) Fentanyl dependence Status: Acute (3) Diabetes mellitus, insulin dependent (IDDM), uncontrolled Onset Date: ~ 06/04/2007 Status: Chronic Assessment & Plan: 09/26: Continue home insulin, DKA resulted ALFRED MORGAN MD Sep 28, 2021 20:19
[2021-09-29] VITALS: BP 114/76
[2021-09-29] MEDS: LORazepam 0.5 MG (ATIVAN) TABLET PO PRN ×2 (03:04→07:35)
[2021-09-29 04:29] VITALS: BP 129/80
[2021-09-29 06:11] LABS: BASOPHILS % (AUTO) 1 % (0-10); EOSINOPHILS # (AUTO) 0.1 10^3/uL (0.0-0.3); EOSINOPHILS % (AUTO) 2 % (0-10); HEMATOCRIT 35 % (40-54); HEMOGLOBIN 12.3 g/dL (13.3-17.7); LYMPHOCYTES # (AUTO) 1.9 10^3/uL (1.0-4.0); LYMPHOCYTES % (AUTO) 38 % (12-44); MEAN CORPUSCULAR HEMOGLOBIN 29 pg (25-34); MEAN CORPUSCULAR HGB CONC 35 g/dL (32-36); MEAN CORPUSCULAR VOLUME 82 fL (80-99); MEAN PLATELET VOLUME 9.4 fL (9.0-12.2); MONOCYTES # (AUTO) 0.4 10^3/uL (0.0-1.0); MONOCYTES % (AUTO) 7 % (0-12); NEUTROPHILS # (AUTO) 2.6 10^3/uL (1.8-7.8); NEUTROPHILS % (AUTO) 52 % (42-75); PLATELET COUNT 199 10^3/uL (130-400); WHITE BLOOD COUNT 5.1 10^3/uL (4.3-11.0)
[2021-09-29 06:19] LABS: ALBUMIN 3.6 GM/DL (3.2-4.5)
[2021-09-29 06:20] LABS: POTASSIUM 4.1 MMOL/L (3.6-5.0)
[2021-09-29 06:21] LABS: CALCIUM 8.7 MG/DL (8.5-10.1)
[2021-09-29 06:22] LABS: TOTAL PROTEIN 5.7 GM/DL (6.4-8.2)
[2021-09-29 06:24] LABS: BILIRUBIN,TOTAL 0.3 MG/DL (0.1-1.0)
[2021-09-29 06:26] LABS: CREATININE SERUM 0.73 MG/DL (0.60-1.30)
[2021-09-29] MEDS: inSUlin ASPART (NovoLOG) 1 UNIT/0.01 ML (CHARGE PER UNIT) SC SCH (07:35)
[2021-09-29 08:09] VITALS: BP 131/89
--- NOTE | 2021-09-29 08:45 | Discharge Summary ---
Diagnosis/Chief Complaint Date of Admission Sep 24, 2021 at 16:00 Date of Discharge Discharge Diagnosis Problems/Diagnosis: (1) Withdrawal from opioids Assessment & Plan: 09/26: Currently requiring IV Morphine and having significant symptoms, Discussed the importance of rehab and patient is undecided 09/27: Patient doing much better.Will transition to oral medications. Called Dr Vee and when we get an admit date to [facility] we can do a quick suboxone induction with rapid taper 09/28: Plan to transition to [facility] for suboxone induction and rapid taper Status: Acute (2) Fentanyl dependence Status: Acute (3) Diabetes mellitus, insulin dependent (IDDM), uncontrolled Assessment & Plan: 09/26: Continue home insulin, DKA resulted Status: Chronic Discharge Summary-Simple/Stand Consultations Discharge Physical Examination Allergies: Coded Allergies: tramadol (Verified Adverse Reaction, Mild, N/V, 12/21/14) Vitals & I&Os Vital Sign - Last 12Hours Date Time Temp Pulse Resp B/P (MAP) Pulse Ox O2 Delivery O2 Flow Rate FiO2 09/29/21 08:42 Room Air 09/29/21 08:09 36.2 64 18 131/89 (103) 100 09/28/21 08:41 0.00 Intake and Output 09/29/21 00:00 Intake Total 1640 ml Balance 1640 ml Hospital Course See final discharge diagnosis. Discharge Instructions to patient/family Please see electronic discharge instructions given to patient. Discharge Medications Reviewed and agree with Discharge Medication list on patient's Discharge Instruction sheet ALFRED MORGAN MD Sep 29, 2021 08:45
--- NOTE | 2021-09-29 08:48 | Discharge Summary ---
Discharge [facility] Reconcile Patient Problems Problems Reviewed?: Yes Discharge Medications Continued Medications: Insulin Aspart (Novolog Flexpen) 300 Units/3 Ml Solution 5-8 UNITS SQ AC, EA Insulin Detemir (Levemir Flextouch) 100 Unit/1 Ml Insuln.pen 45 UNIT SQ HS, EA Pantoprazole Sodium (Pantoprazole Sodium) 40 Mg Tablet.dr 40 MG PO DAILY, TAB Sucralfate (Carafate) 1 Gm Tablet 1 GM PO ACHS, TAB LAST FILLED 05-03-2021 #120/30 DAY SUPPLY Discontinued Medications: Gabapentin (Gabapentin) 800 Mg Tablet 800 MG PO TID, TAB Patient Instructions Goal/Follow Up Appt: Patient to [facility] today Patient Instructions: Patient to present to [facility] prior to going to [facility] Activity & Diet Discharge Diet: ADA Diet Activity as Tolerated: Yes ALFRED MORGAN MD Sep 29, 2021 08:48
== END 2021-09-29 09:00 | disposition other institution (70) | DRG 896 ==
LOC: EDUNIT# 12:01 → ER 12:03 → ICU 16:00 → 4TH 09-25 16:25
PROVIDERS: ADMIT Internal Medicine; ATTEND Family Medicine
DX: F11.23 Opioid dependence with withdrawal (principal); E10.10 Type 1 diabetes mellitus with ketoacidosis without coma; Z79.4 Long term (current) use of insulin; F12.90 Cannabis use, unspecified, uncomplicated; F15.90 Other stimulant use, unspecified, uncomplicated; F41.9 Anxiety disorder, unspecified; F32.A Depression, unspecified; J44.9 Chronic obstructive pulmonary disease, unspecified; I10 Essential (primary) hypertension; E10.42 Type 1 diabetes mellitus with diabetic polyneuropathy; K21.9 Gastro-esophageal reflux disease without esophagitis; M19.91 Primary osteoarthritis, unspecified site; M41.9 Scoliosis, unspecified; F17.210 Nicotine dependence, cigarettes, uncomplicated; Z81.1 Family history of alcohol abuse and dependence; Z83.3 Family history of diabetes mellitus; Z82.5 Family history of asthma and other chronic lower respiratory diseases; Z82.49 Family history of ischemic heart disease and other diseases of the circulatory system
CPT/HCPCS: 36415; 80048; 80053; 80306; 80307; 80320; 81000; 82010; 82805; 82947; 83036; 83735; 84100; 85007; 85025; 85027; 99291

== ENCOUNTER 2021-11-12 15:21 | Inpatient (IN) | payer SELFPAY ==
[~2021-11-12] VITALS: Ht 185.4 cm; Wt 77.4 kg
[~2021-11-12 15:21] MED LIST changes: -ASPI-789 PO; +ASPI1TAB23 PO
[2021-11-12] MEDS ORDERED: LACTATED RINGERS 1,000 ML IV STA (15:40)
[2021-11-12] MEDS ORDERED: diphenhydrAMINE 50 MG/ML INJ (BENADRYL) IVP ONE (15:45)
[2021-11-12] MEDS ORDERED: PANTOPRAZOLE 40 MG (PROTONIX) VIAL IV ONE (15:45)
--- NOTE | 2021-11-12 15:45 | ED General ---
General Stated Complaint: METH USE/DIABETES ISSUES Source of Information: Patient Exam Limitations: No Limitations History of Present Illness Date Seen by Provider: Nov 12, 2021 Time Seen by Provider: 15:42 Initial Comments Patient is a 36-year-old male who presents ED with generalized weakness, fatigue, lightheadedness. Patient states he relapsed with methamphetamines last night. States he used about 730 with alcohol. Reports smoking meth as well as marijuana. States today he has felt lightheaded and dizzy and weak. Patient stumbling on arrival. States he has not been checking his blood sugar over the past 4 days. Patient is noncompliant with his insulin. Reports frequent urination with upper abdominal pain. History of gastroparesis. Reports nausea over the past 4 days with 1 episode of nonbilious vomiting today. Denies chest pain, shortness of breath, cough, leg swelling, fever, chills, headache. Allergies and Home Medications Allergies Coded Allergies: tramadol (Verified Adverse Reaction, Mild, N/V, 12/21/14) Patient Home Medication List Home Medication List Reviewed: Yes Insulin Aspart (Novolog Flexpen) 300 Units/3 Ml Solution, 5-8 UNITS SQ AC, (Reported) Entered as Reported by: SAMRA MCCORD on 06/07/21 0935 Insulin Detemir (Levemir Flextouch) 100 Unit/1 Ml Insuln.pen, 45 UNIT SQ HS, (Reported) Entered as Reported by: SAMRA MCCORD on 08/02/21 1522 Pantoprazole Sodium (Pantoprazole Sodium) 40 Mg Tablet.dr, 40 MG PO DAILY, (Reported) Entered as Reported by: SAMRA MCCORD on 06/07/21 0935 Sucralfate (Carafate) 1 Gm Tablet, 1 GM PO ACHS, (Reported) Entered as Reported by: SAMRA MCCORD on 06/07/21 0935 Review of Systems Review of Systems Constitutional: No chills, No diaphoresis; malaise, weakness EENTM: No ear pain, No blurred vision, No double vision Respiratory: No cough, No dyspnea on exertion, No orthopnea, No short of breath Cardiovascular: No chest pain, No edema Gastrointestinal: No abdominal pain, No diarrhea; nausea, vomiting Genitourinary: No decreased output, No discharge Musculoskeletal: No back pain, No joint pain Skin: No change in color, No change in hair/nails Psychiatric/Neurological: Other (Dizziness and weakness) All Other Systems Reviewed Negative Unless Noted: Yes Past Cvjdkdd-Vrhvkj-Mquwmi Hx Immunizations Up To Date Tetanus Booster (TDap): Unknown First/Initial COVID19 Vaccinat: 2020 Second COVID19 Vaccination Kumar: 2020 Third COVID19 Vaccination Date: UNK Seasonal Allergies Seasonal Allergies: No Past Medical History Surgery/Hospitalization HX: GALLBLADDER Surgeries: Yes Abdominal, Gallbladder Respiratory: Yes (copd dx by patient) COPD Currently Using CPAP: No Currently Using BIPAP: No Cardiac: Yes Hypertension Neurological: Yes Neuropathy Reproductive Disorders: No Sexually Transmitted Disease: No HIV/AIDS: No Genitourinary: Yes Kidney Infection Gastrointestinal: Yes (ELEVATED LIVER ENZYMES, Hep A; CANNIBIS HYPEREMESIS; ) Gastroesophageal Reflux, Liver Disease/Jaundice, Esophagitis Musculoskeletal: Yes Arthritis, Scoliosis, Chronic Back Pain Endocrine: Yes (Type I) Diabetes, Insulin dep HEENT: No Hearing Impairment: Denies Cancer: No Psychosocial: Yes (POLYSUBSTANCE ABUSE) Depression Integumentary: No Blood Disorders: No Adverse Reaction/Blood Tranf: No Family Medical History Alcoholism 19 FATHER G8 BROTHER Congenital heart disease 19 FATHER Family history: Cardiovascular disease 19 FATHER, Onset:40's - 50 Family history: Diabetes mellitus 19 MOTHER Family history: Hypertension 19 FATHER Heart disease 19 FATHER History of - respiratory disease 19 FATHER History of drug abuse 19 MOTHER Hypercholesterolemia 19 FATHER Myocardial infarction 19 FATHER Seizure disorder 19 FATHER No Family History of: Abdominal aortic aneurysm Sproul's disease Cancer Congestive heart failure Cystic fibrosis Dementia Dysphagia Family history: Allergy Family history: Alzheimer's disease Family history: Arthritis Family history: Asthma Family history: Breast disease Family history: Coronary thrombosis Family history: Gastrointestinal disease Family history: Glaucoma Family history: Osteoporosis Family history: Thyroid disorder Headache Hearing loss Hereditary disease History of - anemia History of - disorder Human immunodeficiency virus (HIV) seropositivity Infertile Kidney disease Malignant neoplasm of lung Parkinson's disease Prostate cancer Psychotic disorder Stroke Tuberculosis Visual impairment Heart Disease, Diabetes, Hypertension SOCIAL HISTORY: -SMOKES 1 PPD -History of DRUGS--+ IV METH USE, COCAINE USE, THC, RX DRUGS--ESPECIALLY HYDROCODONE AND ADDERALL -History of ETOH--HEAVY REGULAR/DAILY USE Physical Exam Vital Signs Vital Signs - First Documented 11/12/21 15:43 Temp 36.6 Pulse 108 Resp 20 B/P (MAP) 107/88 (94) Pulse Ox 97 O2 Delivery Room Air Capillary Refill : Height, Weight, BMI Height: 5'10.00" Weight: 240lbs. 0oz. 108.195116ys; 28.12 BMI Method:Stated General Appearance: Other (Poor hygiene) Eyes: Bilateral Eye Normal Inspection, Bilateral Eye PERRL, Bilateral Eye EOMI, Bilateral Eye Abnormal EOM HEENT: PERRL/EOMI, TMs Normal, Normal ENT Inspection Neck: Full Range of Motion, Normal Inspection, Non Tender, Supple Respiratory: Chest Non Tender, Lungs Clear, Normal Breath Sounds, No Accessory Muscle Use, No Respiratory Distress Cardiovascular: Regular Rate, Rhythm, No Edema, No Gallop, No JVD Gastrointestinal: Normal Bowel Sounds, No Organomegaly, No Pulsatile Mass, Soft, Tenderness (Upper abdominal tenderness) Back: Normal Inspection, No CVA Tenderness, No Vertebral Tenderness Extremity: Normal Capillary Refill, Normal Inspection, Normal Range of Motion, Non Tender Skin: Normal Color Progress/Results/Core Measures Suspected Sepsis SIRS Temperature: Pulse: Respiratory Rate: Laboratory Tests 11/12/21 16:17: White Blood Count 5.8 Blood Pressure / Mean: Laboratory Tests 11/12/21 16:17: Creatinine 1.17, Platelet Count 245, Total Bilirubin 1.2H Results/Orders Lab Results Laboratory Tests Test 11/12/21 15:39 11/12/21 16:17 11/12/21 17:24 Range/Units Glucometer 597 *H 70-110 MG/DL White Blood Count 5.8 4.3-11.0 10^3/uL Red Blood Count 4.00 L 4.30-5.52 10^6/uL Hemoglobin 11.8 L 13.3-17.7 g/dL Hematocrit 34 L 40-54 % Mean Corpuscular Volume 84 80-99 fL Mean Corpuscular Hemoglobin 30 25-34 pg Mean Corpuscular Hemoglobin Concent 35 32-36 g/dL Red Cell Distribution Width 12.4 10.0-14.5 % Platelet Count 245 130-400 10^3/uL Mean Platelet Volume 9.2 9.0-12.2 fL Immature Granulocyte % (Auto) 1 % Neutrophils (%) (Auto) 72 42-75 % Lymphocytes (%) (Auto) 20 12-44 % Monocytes (%) (Auto) 6 0-12 % Eosinophils (%) (Auto) 1 0-10 % Basophils (%) (Auto) 1 0-10 % Neutrophils # (Auto) 4.2 1.8-7.8 10^3/uL Lymphocytes # (Auto) 1.1 1.0-4.0 10^3/uL Monocytes # (Auto) 0.3 0.0-1.0 10^3/uL Eosinophils # (Auto) 0.1 0.0-0.3 10^3/uL Basophils # (Auto) 0.0 0.0-0.1 10^3/uL Immature Granulocyte # (Auto) 0.1 0.0-0.1 10^3/uL Sodium Level 129 L 135-145 MMOL/L Potassium Level 4.5 3.6-5.0 MMOL/L Chloride Level 93 L 98-107 MMOL/L Carbon Dioxide Level 17 L 21-32 MMOL/L Anion Gap 19 H 5-14 MMOL/L Blood Urea Nitrogen 19 H 7-18 MG/DL Creatinine 1.17 0.60-1.30 MG/DL Estimat Glomerular Filtration Rate 84 BUN/Creatinine Ratio 16 Glucose Level 654 *H 70-105 MG/DL Calcium Level 8.7 8.5-10.1 MG/DL Corrected Calcium 8.9 8.5-10.1 MG/DL Total Bilirubin 1.2 H 0.1-1.0 MG/DL Aspartate Amino Transf (AST/SGOT) 17 5-34 U/L Alanine Aminotransferase (ALT/SGPT) 22 0-55 U/L Alkaline Phosphatase 88 40-136 U/L Total Protein 5.8 L 6.4-8.2 GM/DL Albumin 3.8 3.2-4.5 GM/DL Lipase 8 8-78 U/L Beta-Hydroxybutyrate (Chem panel) 6.95 H 0.00-0.27 MMOL/L Serum Alcohol < 10 <10 MG/DL Blood Gas Puncture Site RIGHT RADIAL Blood Gas Patient Temperature 37.0 Arterial Blood pH 7.30 *L 7.37-7.43 Arterial Blood Partial Pressure CO2 46 H 35-45 MMHG Arterial Blood Partial Pressure O2 74 L 79-93 MMHG Arterial Blood HCO3 22 L 23-27 MMOL/L Arterial Blood Total CO2 24.0 21.0-31.0 MMOL/L Arterial Blood Oxygen Saturation 93 L 94-100 % Arterial Blood Base Excess -4.0 L -2.5-2.5 MMOL/L Mauri Test NA Blood Gas Ventilator Setting NO Blood Gas Inspired Oxygen UNK My Orders Orders - NEVIN JOHNSON Ua Culture If Indicated (11/12/21 15:25) Drug Screen Stat (Urine) (11/12/21 15:25) Accucheck Stat ONCE (11/12/21 15:25) Cbc With Automated Diff (11/12/21 15:40) Comprehensive Metabolic Panel (11/12/21 15:40) Lipase (11/12/21 15:40) Alcohol (11/12/21 15:40) Lactated Ringers (Lr 1000 Ml Iv Solution (11/12/21 15:40) Pantoprazole Injection (Protonix Injecti (11/12/21 15:45) Diphenhydramine Injection (Benadryl Inje (11/12/21 15:45) Iv/Invasive Line Insertion .IV start (11/12/21 16:20) Iv/Invasive Line Insertion .IV start (11/12/21 16:20) Beta Hydroxybutyrate (11/12/21 16:52) Arterial Blood Gas (11/12/21 16:52) Ed Admission (Communication) (11/12/21 17:54) Medications Given in ED Current Medications Medications Dose Ordered Sig/Fer Route Start Time Stop Time Status Last Admin Dose Admin Diphenhydramine HCl 25 mg ONCE ONCE IVP 11/12/21 15:45 11/12/21 15:46 DC 11/12/21 16:27 25 MG Pantoprazole 40 mg ONCE ONCE IV 11/12/21 15:45 11/12/21 15:46 DC 11/12/21 16:26 40 MG Vital Signs/I&O 11/12/21 15:43 Temp 36.6 Pulse 108 Resp 20 B/P (MAP) 107/88 (94) Pulse Ox 97 O2 Delivery Room Air Capillary Refill : Departure Communication (Admissions) Time/Spoke to Admitting Phy: 17:57 Patient presents ED weakness fatigue lightheadedness vomiting and elevated blood sugar. Patient is noncompliant type I diabetic. States he used methamphetamine and alcohol last night. Blood sugar over 600 here in the ED. Vital signs stable. 2 IVs were started. Was given a liter of fluid LR. Elevated anion gap at 19 with a beta hydroxybutyrate of 6.95. pH is 7.30. Patient appears in DKA. Has not been able to provide a urine at this time. Generalized pain. Patient was discussed with Dr. Brower who agrees to admit patient for DKA. She will put in acute orders. Insulin drip will be started upstairs. Communication (PCP) Dr. Phan admission, icu for DKA Impression Primary Impression: DKA (diabetic ketoacidosis) Disposition: ADMITTED INPATIENT Condition: Stable Admissions Decision to Admit Reason: Admit from ER (General) Decision to Admit/Date: Nov 12, 2021 Time/Decision to Admit Time: 17:53 Departure-Patient Inst. Decision time for Depature: 17:53 Referrals: [facility] (PCP/Family) Primary Care Physician NEVIN JOHNSON Nov 12, 2021 15:45
[2021-11-12 16:34] LABS: BASOPHILS % (AUTO) 1 % (0-10); EOSINOPHILS # (AUTO) 0.1 10^3/uL (0.0-0.3); EOSINOPHILS % (AUTO) 1 % (0-10); HEMATOCRIT 34 % (40-54); HEMOGLOBIN 11.8 g/dL (13.3-17.7); LYMPHOCYTES # (AUTO) 1.1 10^3/uL (1.0-4.0); LYMPHOCYTES % (AUTO) 20 % (12-44); MEAN CORPUSCULAR HEMOGLOBIN 30 pg (25-34); MEAN CORPUSCULAR HGB CONC 35 g/dL (32-36); MEAN CORPUSCULAR VOLUME 84 fL (80-99); MEAN PLATELET VOLUME 9.2 fL (9.0-12.2); MONOCYTES # (AUTO) 0.3 10^3/uL (0.0-1.0); MONOCYTES % (AUTO) 6 % (0-12); NEUTROPHILS # (AUTO) 4.2 10^3/uL (1.8-7.8); NEUTROPHILS % (AUTO) 72 % (42-75); PLATELET COUNT 245 10^3/uL (130-400); WHITE BLOOD COUNT 5.8 10^3/uL (4.3-11.0)
[2021-11-12 16:42] LABS: ALBUMIN 3.8 GM/DL (3.2-4.5); CHLORIDE 93 MMOL/L (98-107); POTASSIUM 4.5 MMOL/L (3.6-5.0); SODIUM 129 MMOL/L (135-145)
[2021-11-12 16:43] LABS: CALCIUM 8.7 MG/DL (8.5-10.1)
[2021-11-12 16:45] LABS: TOTAL PROTEIN 5.8 GM/DL (6.4-8.2)
[2021-11-12 16:46] LABS: BILIRUBIN,TOTAL 1.2 MG/DL (0.1-1.0); CARBON DIOXIDE 17 MMOL/L (21-32)
[2021-11-12 16:48] LABS: ALKALINE PHOSPHATASE 88 U/L (40-136); CREATININE SERUM 1.17 MG/DL (0.60-1.30); GFR ESTIMATED 84
[2021-11-12 16:49] LABS: BUN/CREATININE RATIO 16
[2021-11-12 16:51] LABS: ALANINE AMINOTRANSFERASE 22 U/L (0-55)
[2021-11-12 16:52] LABS: LIPASE 8 U/L (8-78)
[2021-11-12 16:53] LABS: GLUCOSE 654 MG/DL (70-105)
[2021-11-12 17:48] LABS: ABG PCO2 46 MMHG (35-45); ABG PO2 74 MMHG (79-93)
[2021-11-12 17:49] LABS: ABG OXYGEN SATURATION 93 % (94-100); VENTILATOR NO
--- NOTE | 2021-11-12 19:00 | History & Physical-Hospitalist ---
History of Present Illness HPI/Chief Complaint CC: DKA HPI: This is a 36yoWM [facility] patient who has a h/o Type 1 DM and frequent DKA who once again presents to the ER with N/V and found to have elevated sugar and DKA. Patient is lethargic and can't tell me details. Insulin infusion started. Source: patient Exam Limitations: no limitations Date Seen 11/12/21 Time Seen by a Provider: 19:00 Attending Physician [facility] PCP Admitting Physician: Attending Physician: Referring Physician Date of Admission Home Medications & Allergies Home Medications Reviewed patient Home Medication Reconciliation performed by pharmacy medication reconciliations plating technician and/or nursing. Patients Allergies have been reviewed. Allergies Allergies Coded Allergies tramadol (Verified Adverse Reaction, Mild, N/V, 12/21/14) Past Pfcaima-Bnefbx-Qdslum Hx Patient Social History Marrital Status: single Employed/Student: unemployed Tobacco Use?: Yes Tobacco type used: Cigarettes Smoking Status: Current Everyday Smoker Use of E-Cig and/or Vaping dev: No Substance use?: Yes Substance type: Methamphetamine, Marijuana Substance frequency: Daily Alcohol Use?: Yes Alcohol type: Beer, Hard Liquor Alcohol Frequency: Daily Pt feels they are or have been: No Immunizations Up To Date Date of Influenza Vaccine: Apr 04, 2021 First/Initial COVID19 Vaccinat: 2020 Second COVID19 Vaccination Kumar: 2020 Tetanus Booster (TDap): Less Than 5 Years Hepatitis A: No Hepatitis B: No Date of Pneumonia Vaccine: Aug 27, 2011 Seasonal Allergies Seasonal Allergies: No Current Status Advance Directives: No Primary Language: Cypriot Preferred Spoken Language: Cypriot Implanted or Applied Medical D: None Past Medical History Surgeries: Abdominal, Gallbladder COPD Currently Using CPAP: No Currently Using BIPAP: No Hypertension Neuropathy Sexually Transmitted Disease: No HIV/AIDS: No Kidney Infection Gastroesophageal Reflux, Liver Disease/Jaundice, Esophagitis Arthritis, Scoliosis, Chronic Back Pain Diabetes, Insulin dep Hearing Impairment: Denies Depression Blood Disorders: No Adverse Reaction/Blood Tranf: No Past Medical History 1. DM, insulin requiring 2. Hypertension 3. Alcoholism- reports stopped drinking 4. 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 Tobaccoism 6. GERD 7. Peipheral Neuropathy Past Surgical History Denies Family Medical History Alcoholism 19 FATHER G8 BROTHER Congenital heart disease 19 FATHER Family history: Cardiovascular disease 19 FATHER, Onset:40's - 50 Family history: Diabetes mellitus 19 MOTHER Family history: Hypertension 19 FATHER Heart disease 19 FATHER History of - respiratory disease 19 FATHER History of drug abuse 19 MOTHER Hypercholesterolemia 19 FATHER Myocardial infarction 19 FATHER Seizure disorder 19 FATHER No Family History of: Abdominal aortic aneurysm Fields's disease Cancer Congestive heart failure Cystic fibrosis Dementia Dysphagia Family history: Allergy Family history: Alzheimer's disease Family history: Arthritis Family history: Asthma Family history: Breast disease Family history: Coronary thrombosis Family history: Gastrointestinal disease Family history: Glaucoma Family history: Osteoporosis Family history: Thyroid disorder Headache Hearing loss Hereditary disease History of - anemia History of - disorder Human immunodeficiency virus (HIV) seropositivity Infertile Kidney disease Malignant neoplasm of lung Parkinson's disease Prostate cancer Psychotic disorder Stroke Tuberculosis Visual impairment Heart Disease, Diabetes, Hypertension SOCIAL HISTORY: -SMOKES 1 PPD -History of DRUGS--+ IV METH USE, COCAINE USE, THC, RX DRUGS--ESPECIALLY HYDROCODONE AND ADDERALL -History of ETOH--HEAVY REGULAR/DAILY USE Review of Systems ROS-Unable to Obtain: lethargy Constitutional: see HPI Physical Exam Physical Exam Vital Signs Vital Signs - First Documented 11/12/21 15:43 Temp 36.6 Pulse 108 Resp 20 B/P (MAP) 107/88 (94) Pulse Ox 97 O2 Delivery Room Air Capillary Refill : Less Than 3 Seconds Height, Weight, BMI Height: 5'10.00" Weight: 240lbs. 0oz. [id number]; 24.00 BMI Method:Stated General Appearance: No Apparent Distress, Chronically ill Eyes: Right Eye Normal Inspection, Right Eye PERRL HEENT: PERRL/EOMI, Normal ENT Inspection, Pharynx Normal, Moist Mucous Membranes Neck: Full Range of Motion, Normal Inspection, Non Tender Respiratory: Chest Non Tender, Lungs Clear, Normal Breath Sounds, No Accessory Muscle Use, No Respiratory Distress Cardiovascular: Regular Rate, Rhythm, No Edema, No Gallop, No JVD, No Murmur, Normal Peripheral Pulses Gastrointestinal: Normal Bowel Sounds, No Organomegaly, No Pulsatile Mass, Non Tender, Soft Back: Normal Inspection, No CVA Tenderness, No Vertebral Tenderness Extremity: Normal Capillary Refill, Normal Inspection, Normal Range of Motion, Non Tender, No Calf Tenderness, No Pedal Edema Neurologic/Psychiatric: Alert, No Motor/Sensory Deficits, Normal Mood/Affect, Depressed Affect Skin: Normal Color, Warm/Dry Lymphatic: No Adenopathy Results Results/Procedures Labs Laboratory Tests 11/12/21 16:17 Patient resulted labs reviewed. Assessment/Plan Admission Diagnosis Assessment: DKA Gastritis COPD Plan: Monitor closely ICU DKA protocol Admission Status: Inpatient Order (span 2 midnights) Reason for Inpatient Admission: DKA Diagnosis/Problems Diagnosis/Problems (1) DKA (diabetic ketoacidosis) Status: Acute CARLOS MCLEAN DO Nov 12, 2021 19:00
[2021-11-12 19:52] LABS: BILIRUBIN,URINE NEGATIVE (NEGATIVE); CLARITY,URINE CLEAR; COLOR,URINE YELLOW; GLUCOSE, URINE (UA) 3+ (NEGATIVE); KETONES,URINE 3+ (NEGATIVE); LEUKOCYTE ESTERASE ,URINE NEGATIVE (NEGATIVE); NITRITE,URINE NEGATIVE (NEGATIVE); PROTEIN,URINE NEGATIVE (NEGATIVE)
[2021-11-12 20:02] LABS: AMPHETAMINE SCREEN, URINE POSITIVE (NEGATIVE); BARBITURATE SCREEN URINE NEGATIVE (NEGATIVE); BENZODIAZEPINES SCREEN URINE NEGATIVE (NEGATIVE); CANNABINOID SCREEN, URINE POSITIVE (NEGATIVE); COCAINE SCREEN URINE NEGATIVE (NEGATIVE); METHADONE STAT NEGATIVE (NEGATIVE); OPIATE SCREEN URINE NEGATIVE (NEGATIVE); OXYCODONE STAT NEGATIVE (NEGATIVE); PROPOXYPHENE STAT NEGATIVE (NEGATIVE); TRICYCLIC ANTIDEPRESSANTS SCRE NEGATIVE (NEGATIVE)
[2021-11-12 20:07] LABS: BACTERIA,URINE TRACE /HPF; WBC,URINE RARE /HPF
[2021-11-12] MEDS ORDERED: D5 1/2 NS 1000 ML IV SOLUTION 1,000 ML IV SCH (20:15)
[2021-11-12] MEDS ORDERED: MELATONIN 3 MG TABLET PO PRN (20:15)
[2021-11-12] MEDS ORDERED: BISACODYL 10 MG SUPP (DULCOLAX) PR PRN (20:15)
[2021-11-12] MEDS ORDERED: polyethylene glycoL POWDER 17 GM (MIRALAX) PACK PO PRN (20:15)
[2021-11-12] MEDS ORDERED: CALCIUM CARBONATE 500 MG (TUMS) TAB.CHEW PO PRN (20:15)
[2021-11-12] MEDS ORDERED: ANTACID SUSP 30 ML UDC (MYLANTA) PO PRN (20:15)
[2021-11-12] MEDS ORDERED: NS IV 1000 ML 1,000 ML IV SCH (20:15)
[2021-11-12] MEDS ORDERED: diphenhydrAMINE 50 MG/ML INJ (BENADRYL) IVP PRN (20:15)
[2021-11-12] MEDS ORDERED: ONDANSETRON 4 MG (ZOFRAN) ORAL DISSOLVE TAB PO PRN (20:15)
[2021-11-12] MEDS ORDERED: diphenhydrAMINE 25 MG TAB (BENADRYL) PO PRN (20:15)
[2021-11-12] MEDS ORDERED: HALOPERIDOL 5 MG/ML (HALDOL) VIAL IM PRN (20:15)
[2021-11-12] MEDS ORDERED: LACTULOSE SYRUP 10GM/15ML (ENULOSE) 30ML UDC PO PRN (20:15)
[2021-11-12] MEDS ORDERED: POTASSIUM CL 10MEQ/50ML IVPB 50 ML IV SCH (20:15)
[2021-11-12] MEDS ORDERED: LORazepam INJ 2 MG/ML (ATIVAN) VIAL IVP PRN (20:15)
[2021-11-12] MEDS ORDERED: morphine INJ 4 MG/ML 1 ML (VIAL/SYRINGE) IV PRN (20:15)
[2021-11-12] MEDS ORDERED: ONDANSETRON 4 MG/2 ML (SDV) Z0FRAN IV PRN (20:15)
[2021-11-12] MEDS ORDERED: ACETAMINOPHEN 325 MG TABLET PO PRN (20:15)
[2021-11-12] MEDS ORDERED: MILK OF MAGNESIA 400 MG/5 ML 30 ML UDC PO PRN (20:15)
[2021-11-12] MEDS: 1/2 NS IV SOLUTION 1,000 ML IV SCH (20:37)
[2021-11-12] MEDS: DOCUSATE SODIUM 100 MG (COLACE) CAP PO SCH (20:42)
[2021-11-12] MEDS: SENNOSIDES 8.6 MG (SENOKOT) TAB PO SCH (20:43)
[2021-11-12 20:49] VITALS: BP 132/81
[2021-11-12] MEDS ORDERED: RT-ALBUTEROL SULF 2.5 MG/3 ML PRE-MIX VIAL INH PRN (21:00)
[2021-11-12] MEDS ORDERED: ENOXAPARIN 40 MG/0.4 ML (LOVENOX) SYR SC SCH (21:00)
[2021-11-12 21:28] LABS: POTASSIUM 4.4 MMOL/L (3.6-5.0)
[2021-11-12 21:30] LABS: CALCIUM 8.6 MG/DL (8.5-10.1)
[2021-11-12 21:34] LABS: CREATININE SERUM 1.06 MG/DL (0.60-1.30)
[2021-11-12 22:48] LABS: CALCIUM 8.6 MG/DL (8.5-10.1)
[2021-11-13] MEDS: 1/2 NS IV SOLUTION 1,000 ML IV SCH ×3 (00:59→09:00)
[2021-11-13 01:24] LABS: POTASSIUM 3.5 MMOL/L (3.6-5.0)
[2021-11-13 01:25] LABS: CALCIUM 8.6 MG/DL (8.5-10.1)
[2021-11-13 01:29] LABS: PHOSPHORUS 2.9 MG/DL (2.3-4.7)
[2021-11-13 01:30] LABS: CREATININE SERUM 0.87 MG/DL (0.60-1.30)
[2021-11-13 01:32] LABS: MAGNESIUM 1.6 MG/DL (1.6-2.4)
[2021-11-13] MEDS: POTASSIUM CL 10MEQ/50ML IVPB 50 ML IV SCH ×2 (01:46→04:09)
[2021-11-13 05:05] LABS: BASOPHILS % (AUTO) 1 % (0-10); EOSINOPHILS # (AUTO) 0.2 10^3/uL (0.0-0.3); EOSINOPHILS % (AUTO) 3 % (0-10); HEMATOCRIT 35 % (40-54); HEMOGLOBIN 11.9 g/dL (13.3-17.7); LYMPHOCYTES # (AUTO) 2.8 10^3/uL (1.0-4.0); LYMPHOCYTES % (AUTO) 47 % (12-44); MEAN CORPUSCULAR HEMOGLOBIN 29 pg (25-34); MEAN CORPUSCULAR HGB CONC 34 g/dL (32-36); MEAN CORPUSCULAR VOLUME 84 fL (80-99); MONOCYTES # (AUTO) 0.5 10^3/uL (0.0-1.0); MONOCYTES % (AUTO) 8 % (0-12); NEUTROPHILS # (AUTO) 2.6 10^3/uL (1.8-7.8); NEUTROPHILS % (AUTO) 42 % (42-75); PLATELET COUNT 243 10^3/uL (130-400); WHITE BLOOD COUNT 6.1 10^3/uL (4.3-11.0)
[2021-11-13 05:21] LABS: ALBUMIN 3.3 GM/DL (3.2-4.5); POTASSIUM 3.6 MMOL/L (3.6-5.0)
[2021-11-13 05:22] LABS: CALCIUM 8.3 MG/DL (8.5-10.1)
[2021-11-13 05:24] LABS: TOTAL PROTEIN 5.5 GM/DL (6.4-8.2)
[2021-11-13 05:25] LABS: BILIRUBIN,TOTAL 0.6 MG/DL (0.1-1.0)
[2021-11-13 05:25] LABS: ABG OXYGEN SATURATION 92 % (94-100); ABG PCO2 55 MMHG (35-45); ABG PO2 69 MMHG (79-93); ALLENS TEST YES-POS; INSPIRED O2 ROOM AIR; VENTILATOR NO
[2021-11-13 05:26] LABS: ABG PH 7.36 (7.37-7.43); PATIENT TEMP NOT INDICATED
[2021-11-13 05:27] LABS: CREATININE SERUM 0.77 MG/DL (0.60-1.30)
[2021-11-13] MEDS: inSUlin ASPART (NovoLOG) 1 UNIT/0.01 ML (CHARGE PER UNIT) SC SCH ×2 (05:55→11:00)
--- NOTE | 2021-11-13 06:20 | Progress Note - Hospitalist ---
Subjective HPI/CC On Admission Date Seen by Provider: Nov 13, 2021 Time Seen by Provider: 10:30 CC: DKA HPI: This is a 36yoWM [facility] patient who has a h/o Type 1 DM and frequent DKA who once again presents to the ER with N/V and found to have elevated sugar and DKA. Patient is lethargic and can't tell me details. Insulin infusion started. Objective Exam Vital Signs Vital Signs Date Time Temp Pulse Resp B/P (MAP) Pulse Ox O2 Delivery O2 Flow Rate FiO2 11/13/21 11:00 95 110/78 98 Room Air 11/13/21 09:00 12 11/13/21 07:55 36.4 Capillary Refill : Less Than 3 Seconds Results/Procedures Lab Laboratory Tests 11/12/21 16:17 11/12/21 21:00 11/12/21 22:30 11/13/21 01:00 11/13/21 04:59 Patient resulted labs reviewed. Diagnosis/Problems Diagnosis/Problems (1) DKA (diabetic ketoacidosis) Status: Acute CARLOS MCLEAN DO Nov 13, 2021 06:20
[2021-11-13] MEDS: SENNOSIDES 8.6 MG (SENOKOT) TAB PO SCH (09:01)
[2021-11-13] MEDS: DOCUSATE SODIUM 100 MG (COLACE) CAP PO SCH (09:01)
--- NOTE | 2021-11-13 09:38 | Diagnostic Imaging Report ---
INDICATION: Diabetic ketoacidosis. TECHNIQUE: Single view chest 6:10 AM. CORRELATION STUDY: 07/09/2021 FINDINGS: The heart size, mediastinal configuration and pulmonary vascularity are within normal limits. Question minimal infiltrate-like opacity left lung base. Remaining lung ahuja otherwise clear. IMPRESSION: 1. Question very minimal infiltrate atelectasis or superimposition left lung base. Dictated by: Dictated on workstation # [id number]
--- NOTE | 2021-11-13 10:23 | Discharge Summary ---
Discharge Summary Hospital Course Was the Problem List Reviewed?: Yes Problems/Dx: (1) DKA (diabetic ketoacidosis) Status: Acute Hospital Course Date of Admission: Nov 12, 2021 at 17:54 Admission Diagnosis : Family Physician/Provider: [place] Date of Discharge: 11/13/21 Discharge Diagnosis: DKA, meth use Hospital Course: Short course after DKA dx in ER after meth use. IV insulin initiated which closed gap and resolved acidosis. Patient was eating well and was DC. Labs and Pending Lab Test: Laboratory Tests 11/12/21 15:39: Glucometer 597*H 11/12/21 16:17: White Blood Count 5.8, Red Blood Count 4.00L, Hemoglobin 11.8L, Hematocrit 34L, Mean Corpuscular Volume 84, Mean Corpuscular Hemoglobin 30, Mean Corpuscular Hemoglobin Concent 35, Red Cell Distribution Width 12.4, Platelet Count 245, Mean Platelet Volume 9.2, Immature Granulocyte % (Auto) 1, Neutrophils (%) (Auto) 72, Lymphocytes (%) (Auto) 20, Monocytes (%) (Auto) 6, Eosinophils (%) (Auto) 1, Basophils (%) (Auto) 1, Neutrophils # (Auto) 4.2, Lymphocytes # (Auto) 1.1, Monocytes # (Auto) 0.3, Eosinophils # (Auto) 0.1, Basophils # (Auto) 0.0, Immature Granulocyte # (Auto) 0.1, Sodium Level 129L, Potassium Level 4.5, Chloride Level 93L, Carbon Dioxide Level 17L, Anion Gap 19H, Blood Urea Nitrogen 19H, Creatinine 1.17, Estimat Glomerular Filtration Rate 84, BUN/Creatinine Ratio 16, Glucose Level 654*H, Mean Blood Glucose [Pending], Hemoglobin A1c [Pending], Calcium Level 8.7, Corrected Calcium 8.9, Total Bilirubin 1.2H, Aspartate Amino Transf (AST/SGOT) 17, Alanine Aminotransferase (ALT/SGPT) 22, Alkaline Phosphatase 88, Total Protein 5.8L, Albumin 3.8, Lipase 8, Beta- Hydroxybutyrate (Chem panel) 6.95H, Serum Alcohol < 10 11/12/21 17:24: Blood Gas Puncture Site RIGHT RADIAL, Blood Gas Patient Temperature 37.0, Arterial Blood pH 7.30*L, Arterial Blood Partial Pressure CO2 46H, Arterial Blood Partial Pressure O2 74L, Arterial Blood HCO3 22L, Arterial Blood Total CO2 24.0, Arterial Blood Oxygen Saturation 93L, Arterial Blood Base Excess -4.0L, Mauri Test NA, Blood Gas Ventilator Setting NO, Blood Gas Inspired Oxygen UNK 11/12/21 19:46: Urine Color YELLOW, Urine Clarity CLEAR, Urine pH 6.0, Urine Specific [place] 1.010L, Urine Protein NEGATIVE, Urine Glucose (UA) 3+H, Urine Ketones 3+H, Urine Nitrite NEGATIVE, Urine Bilirubin NEGATIVE, Urine Urobilinogen 0.2, Urine Leukocyte Esterase NEGATIVE, Urine RBC (Auto) NEGATIVE, Urine RBC NONE, Urine WBC RARE, Urine Squamous Epithelial Cells NONE, Urine Crystals NONE, Urine Bacteria TRACE, Urine Casts NONE, Urine Mucus NEGATIVE, Urine Culture Indicated NO, Urine Opiates Screen NEGATIVE, Urine Oxycodone Screen NEGATIVE, Urine Methadone Screen NEGATIVE, Urine Propoxyphene Screen NEGATIVE, Urine Alexia turates Screen NEGATIVE, Ur Tricyclic Antidepressants Screen NEGATIVE, Urine Phencyclidine Screen NEGATIVE, Urine Amphetamines Screen POSITIVEH, Urine Methamphetamines Screen POSITIVEH, Urine Benzodiazepines Screen NEGATIVE, Urine Cocaine Screen NEGATIVE, Urine Cannabinoids Screen POSITIVEH 11/12/21 20:00: Glucometer 440*H 11/12/21 21:00: Sodium Level 134L, Potassium Level 4.4, Chloride Level 98, Carbon Dioxide Level 18L, Anion Gap 18H, Blood Urea Nitrogen 17, Creatinine 1.06, Estimat Glomerular Filtration Rate 94, BUN/Creatinine Ratio 16, Glucose Level 441*H, Calcium Level 8.6, Beta-Hydroxybutyrate (Chem panel) 6.64H 11/12/21 21:02: Glucometer 420*H 11/12/21 22:11: Glucometer 345H 11/12/21 22:30: Sodium Level 135, Potassium Level 4.0, Chloride Level 101, Carbon Dioxide Level 21, Anion Gap 13, Blood Urea Nitrogen 16, Creatinine 1.00, Estimat Glomerular Filtration Rate 101, BUN/Creatinine Ratio 16, Glucose Level 341H, Calcium Level 8.6 11/12/21 23:03: Glucometer 315H 11/13/21 00:04: Glucometer 246H 11/13/21 00:55: Glucometer 193H 11/13/21 01:00: Sodium Level 138, Potassium Level 3.5L, Chloride Level 102, Carbon Dioxide Level 25, Anion Gap 11, Blood Urea Nitrogen 15, Creatinine 0.87, Estimat Glomerular Filtration Rate 116, BUN/Creatinine Ratio 17, Glucose Level 190H, Calcium Level 8.6, Phosphorus Level 2.9, Magnesium Level 1.6 11/13/21 02:24: Glucometer 162H 11/13/21 03:10: Glucometer 128H 11/13/21 04:06: Glucometer 125H 11/13/21 04:50: Glucometer 144H 11/13/21 04:59: White Blood Count 6.1, Red Blood Count 4.14L, Hemoglobin 11.9L, Hematocrit 35L, Mean Corpuscular Volume 84, Mean Corpuscular Hemoglobin 29, Mean Corpuscular Hemoglobin Concent 34, Red Cell Distribution Width 12.5, Platelet Count 243, Mean Platelet Volume 9.0, Immature Granulocyte % (Auto) 0, Neutrophils (%) (Auto) 42, Lymphocytes (%) (Auto) 47H, Monocytes (%) (Auto) 8, Eosinophils (%) (Auto) 3, Basophils (%) (Auto) 1, Neutrophils # (Auto) 2.6, Lymphocytes # (Auto) 2.8, Monocytes # (Auto) 0.5, Eosinophils # (Auto) 0.2, Basophils # (Auto) 0.0, Immature Granulocyte # (Auto) 0.0, Sodium Level 138, Potassium Level 3.6, Chloride Level 104, Carbon Dioxide Level 25, Anion Gap 9, Blood Urea Nitrogen 14, Creatinine 0.77, Estimat Glomerular Filtration Rate 120, BUN/Creatinine Ratio 18, Glucose Level 107H, Calcium Level 8.3L, Corrected Calcium 8.9, Total Bilirubin 0.6, Aspartate Amino Transf (AST/SGOT) 12, Alanine Aminotransferase (ALT/SGPT) 18, Alkaline Phosphatase 74, Total Protein 5.5L, Albumin 3.3 11/13/21 05:10: Blood Gas Puncture Site RIGHT RADIAL, Blood Gas Patient Temperature NOT INDICATED, Arterial Blood pH 7.36L, Arterial Blood Partial Pressure CO2 55H, Arterial Blood Partial Pressure O2 69L, Arterial Blood HCO3 31H, Arterial Blood Total CO2 33.0H, Arterial Blood Oxygen Saturation 92L, Arterial Blood Base Excess 5.0H, Mauri Test YES-POS, Blood Gas Ventilator Setting NO, Blood Gas Inspired Oxygen ROOM AIR 6/12/22 05:55: Glucometer 89 Home Meds Active Reported Levemir Flextouch (Insulin Detemir) 100 Unit/1 Ml Insuln.pen 45 Unit SQ HS Pantoprazole Sodium 40 Mg Tablet.dr 40 Mg PO DAILY Carafate (Sucralfate) 1 Gm Tablet 1 Gm PO ACHS LAST FILLED 05-03-2021 #120/30 DAY SUPPLY Novolog Flexpen (Insulin Aspart) 300 Units/3 Ml Solution 5-8 Units SQ AC Assessment/Pt Instructions PCP 1 week Discharge Planning: <30 minutes discharge planning Discharge Instructions Discharge Diet: ADA Diet Discharge Physical Examination Vital Signs Vital Signs Date Time Temp Pulse Resp B/P (MAP) Pulse Ox O2 Delivery O2 Flow Rate FiO2 11/13/21 10:00 87 114/71 97 Room Air 11/13/21 09:00 12 11/13/21 07:55 36.4 General Appearance: No Apparent Distress, WD/WN Allergies: Coded Allergies: tramadol (Verified Adverse Reaction, Mild, N/V, 12/21/14) Discharge Summary Date of Admission Nov 12, 2021 at 17:54 Date of Discharge Discharge Date: Nov 13, 2021 Admission Diagnosis Assessment: DKA Gastritis COPD Plan: Monitor closely ICU DKA protocol Discharge Diagnosis (1) DKA (diabetic ketoacidosis) Status: Acute CARLOS MCLEAN DO Nov 13, 2021 10:23
== END 2021-11-13 11:22 | disposition home or self-care (01) | DRG 639 ==
LOC: EDUNIT# 15:21 → ER 15:22 → ICU 17:54
PROVIDERS: ADMIT Internal Medicine; ATTEND Internal Medicine
DX: E10.10 Type 1 diabetes mellitus with ketoacidosis without coma (principal); J44.9 Chronic obstructive pulmonary disease, unspecified; I10 Essential (primary) hypertension; E10.40 Type 1 diabetes mellitus with diabetic neuropathy, unspecified; K21.9 Gastro-esophageal reflux disease without esophagitis; K76.9 Liver disease, unspecified; F32.A Depression, unspecified; F17.210 Nicotine dependence, cigarettes, uncomplicated; F15.90 Other stimulant use, unspecified, uncomplicated; F12.90 Cannabis use, unspecified, uncomplicated; M19.90 Unspecified osteoarthritis, unspecified site; Z79.4 Long term (current) use of insulin; M41.9 Scoliosis, unspecified; G89.29 Other chronic pain; M54.9 Dorsalgia, unspecified; K29.70 Gastritis, unspecified, without bleeding; F10.20 Alcohol dependence, uncomplicated
CPT/HCPCS: 36415; 71045; 80048; 80053; 80306; 80320; 81000; 82010; 82805; 82947; 83036; 83690; 83735; 84100; 85025; 99291

== ENCOUNTER 2022-01-27 14:44 | Emergency (ER) | payer SELFPAY ==
[~2022-01-27] VITALS: Ht 70 cm; Wt 82.0 kg
[2022-01-27] MEDS ORDERED: LACTATED RINGERS 1,000 ML IV SCH ×2 (15:00)
[2022-01-27 15:23] LABS: BASOPHILS % (AUTO) 1 % (0-10); EOSINOPHILS % (AUTO) 1 % (0-10); HEMATOCRIT 37 % (40-54); HEMOGLOBIN 12.9 g/dL (13.3-17.7); LYMPHOCYTES # (AUTO) 1.6 X 10^3 (1.0-4.0); LYMPHOCYTES % (AUTO) 24 % (12-44); MEAN CORPUSCULAR HEMOGLOBIN 29 pg (25-34); MEAN CORPUSCULAR HGB CONC 35 g/dL (32-36); MEAN CORPUSCULAR VOLUME 82 fL (80-99); MEAN PLATELET VOLUME 9.1 fL (9.0-12.2); MONOCYTES # (AUTO) 0.4 X 10^3 (0.0-1.0); MONOCYTES % (AUTO) 7 % (0-12); NEUTROPHILS # (AUTO) 4.4 X 10^3 (1.8-7.8); NEUTROPHILS % (AUTO) 68 % (42-75); PLATELET COUNT 249 10^3/uL (130-400); WHITE BLOOD COUNT 6.4 10^3/uL (4.3-11.0)
[2022-01-27] MEDS ORDERED: inSUlin (REGULAR) HUMAN 1 UNIT/0.01 ML (CHARGE PER UNIT) IV ONE ×2 (15:30→17:00)
--- NOTE | 2022-01-27 15:31 | ED General ---
General Chief Complaint: Glucose Problems Stated Complaint: DKA Nursing Triage Note: PT FEELS LIKE HE IS IN DKA. REPORTS LAST B/S TAKEN AT HOME WAS 581. REPORTS MUSCLE ACHINESS, WEAKNESS AND LIGHTHEADEDNESS Source of Information: Patient Exam Limitations: No Limitations (ZACHERY BAKER APRN) History of Present Illness Date Seen by Provider: Jan 27, 2022 Time Seen by Provider: 15:29 Initial Comments To ER with concerns that he is in DKA. He has near syncope upon standing. He has lightheadedness and weakness. History of noncompliance with diabetes sumanth kiara. He has not taken his insulin recently. Timing/Duration: 1-2 Days Severity: Moderate Associated Systoms: Denies Symptoms (ZACHERY BAKER APRN) Allergies and Home Medications Allergies Coded Allergies: tramadol (Verified Adverse Reaction, Mild, N/V, 12/21/14) Patient Home Medication List Home Medication List Reviewed: Yes (ZACHERY BAKER APRN) Insulin Aspart (Novolog Flexpen) 300 Units/3 Ml Solution, 5-8 UNITS SQ AC, (Repo rted) Entered as Reported by: SAMRA MCCORD on 06/07/21 0935 Insulin Detemir (Levemir Flextouch) 100 Unit/1 Ml Insuln.pen, 45 UNIT SQ HS, (Reported) Entered as Reported by: SAMRA MCCORD on 08/02/21 1522 Pantoprazole Sodium (Pantoprazole Sodium) 40 Mg Tablet.dr, 40 MG PO DAILY, (Reported) Entered as Reported by: SAMRA MCCORD on 06/07/21 0935 Sucralfate (Carafate) 1 Gm Tablet, 1 GM PO ACHS, (Reported) Entered as Reported by: SAMRA MCCORD on 06/07/21 0935 Review of Systems Review of Systems Constitutional: see HPI EENTM: see HPI Respiratory: no symptoms reported Cardiovascular: no symptoms reported Genitourinary: no symptoms reported Musculoskeletal: no symptoms reported Skin: no symptoms reported Psychiatric/Neurological: No Symptoms Reported Hematologic/Lymphatic: No Symptoms Reported Immunological/Allergic: no symptoms reported (ZACHERY BAKER APRN) Past Jlzcchi-Tkchej-Clnclc Hx Patient Social History Tobacco Use?: No Use of E-Cig and/or Vaping dev: No Substance type: Marijuana Substance frequency: Daily Alcohol Use?: No Pt feels they are or have been: No (ZACHERY BAKER APRN) Immunizations Up To Date Tetanus Booster (TDap): Unknown Influenza Vaccine Up-to-Date: Yes; Up-to-Date First/Initial COVID19 Vaccinat: 2020 Second COVID19 Vaccination Kumar: 2020 Third COVID19 Vaccination Date: UNK (ZACHERY BAKER APRN) Seasonal Allergies Seasonal Allergies: No (ZACHERY BAKER APRN) Past Medical History Surgery/Hospitalization HX: GALLBLADDER Surgeries: Yes Abdominal, Gallbladder Respiratory: Yes (copd dx by patient) COPD Currently Using CPAP: No Currently Using BIPAP: No Cardiac: Yes Hypertension Neurological: Yes Neuropathy Reproductive Disorders: No Sexually Transmitted Disease: No HIV/AIDS: No Genitourinary: Yes Kidney Infection Gastrointestinal: Yes (ELEVATED LIVER ENZYMES, Hep A; CANNIBIS HYPEREMESIS; ) Gastroesophageal Reflux, Liver Disease/Jaundice, Esophagitis Musculoskeletal: Yes Arthritis, Scoliosis, Chronic Back Pain Endocrine: Yes (Type I) Diabetes, Insulin dep HEENT: No Hearing Impairment: Denies Cancer: No Psychosocial: Yes (POLYSUBSTANCE ABUSE) Depression Integumentary: No Blood Disorders: No Adverse Reaction/Blood Tranf: No (ZACHERY BAKER APRN) Family Medical History Alcoholism 19 FATHER G8 BROTHER Congenital heart disease 19 FATHER Family history: Cardiovascular disease 19 FATHER, Onset:40's - 50 Family history: Diabetes mellitus 19 MOTHER Family history: Hypertension 19 FATHER Heart disease 19 FATHER History of - respiratory disease 19 FATHER History of drug abuse 19 MOTHER Hypercholesterolemia 19 FATHER Myocardial infarction 19 FATHER Seizure disorder 19 FATHER No Family History of: Abdominal aortic aneurysm Markos's disease Cancer Congestive heart failure Cystic fibrosis Dementia Dysphagia Family history: Allergy Family history: Alzheimer's disease Family history: Arthritis Family history: Asthma Family history: Breast disease Family history: Coronary thrombosis Family history: Gastrointestinal disease Family history: Glaucoma Family history: Osteoporosis Family history: Thyroid disorder Headache Hearing loss Hereditary disease History of - anemia History of - disorder Human immunodeficiency virus (HIV) seropositivity Infertile Kidney disease Malignant neoplasm of lung Parkinson's disease Prostate cancer Psychotic disorder Stroke Tuberculosis Visual impairment Heart Disease, Diabetes, Hypertension SOCIAL HISTORY: -SMOKES 1 PPD -History of DRUGS--+ IV METH USE, COCAINE USE, THC, RX DRUGS--ESPECIALLY HYDROCODONE AND ADDERALL -History of ETOH--HEAVY REGULAR/DAILY USE (ZACHERY BAKER APRN) Physical Exam Vital Signs Vital Signs - First Documented 01/27/22 15:10 Temp 37.0 Pulse 85 Resp 20 B/P (MAP) 132/70 Pulse Ox 97 O2 Delivery Room Air (GRIFFIN GUTIERREZ MD) Vital Signs Capillary Refill : Less Than 3 Seconds (ZACHERY BAKER APRN) Height, Weight, BMI Height: 5'10.00" Weight: 240lbs. 0oz. [id number]; 167.00 BMI Method:Stated General Appearance: No Apparent Distress, WD/WN, Other (Not tachycardic not tachypneic) Eyes: Bilateral Eye Normal Inspection, Bilateral Eye PERRL, Bilateral Eye EOMI HEENT: PERRL/EOMI, TMs Normal Neck: Full Range of Motion, Normal Inspection Respiratory: Normal Breath Sounds, No Accessory Muscle Use, No Respiratory Distress Cardiovascular: Regular Rate, Rhythm, Normal Peripheral Pulses Gastrointestinal: No Pulsatile Mass, Non Tender, Soft Extremity: Normal Capillary Refill, Normal Inspection Neurologic/Psychiatric: Alert, Oriented x3 Skin: Normal Color, Warm/Dry (ZACHERY BAKER APRN) Progress/Results/Core Measures Suspected Sepsis SIRS Temperature: Pulse: 80 Respiratory Rate: 20 Laboratory Tests 01/27/22 15:15: White Blood Count 6.4 Blood Pressure 132 /82 Mean: 99 Laboratory Tests 01/27/22 15:15: Creatinine 1.12, Platelet Count 249, Total Bilirubin 0.9 (ZACHERY BAKER APRN) Results/Orders Lab Results Laboratory Tests Test 01/27/22 15:15 01/27/22 15:22 01/27/22 16:45 01/27/22 17:51 Range/Units White Blood Count 6.4 4.3-11.0 10^3/uL Red Blood Count 4.48 4.30-5.52 10^6/uL Hemoglobin 12.9 L 13.3-17.7 g/dL Hematocrit 37 L 40-54 % Mean Corpuscular Volume 82 80-99 fL Mean Corpuscular Hemoglobin 29 25-34 pg Mean Corpuscular Hemoglobin Concent 35 32-36 g/dL Red Cell Distribution Width 11.9 10.0-14.5 % Platelet Count 249 130-400 10^3/uL Mean Platelet Volume 9.1 9.0-12.2 fL Immature Granulocyte % (Auto) 0 % Neutrophils (%) (Auto) 68 42-75 % Lymphocytes (%) (Auto) 24 12-44 % Monocytes (%) (Auto) 7 0-12 % Eosinophils (%) (Auto) 1 0-10 % Basophils (%) (Auto) 1 0-10 % Neutrophils # (Auto) 4.4 1.8-7.8 X 10^3 Lymphocytes # (Auto) 1.6 1.0-4.0 X 10^3 Monocytes # (Auto) 0.4 0.0-1.0 X 10^3 Eosinophils # (Auto) 0.0 0.0-0.3 10^3/uL Basophils # (Auto) 0.0 0.0-0.1 10^3/uL Immature Granulocyte # (Auto) 0.0 0.0-0.1 10^3/uL Sodium Level 134 L 135-145 MMOL/L Potassium Level 4.7 3.6-5.0 MMOL/L Chloride Level 97 L 98-107 MMOL/L Carbon Dioxide Level 26 21-32 MMOL/L Anion Gap 11 5-14 MMOL/L Blood Urea Nitrogen 20 H 7-18 MG/DL Creatinine 1.12 0.60-1.30 MG/DL Estimat Glomerular Filtration Rate 88 BUN/Creatinine Ratio 18 Glucose Level 502 *H 70-105 MG/DL Calcium Level 9.2 8.5-10.1 MG/DL Corrected Calcium 9.0 8.5-10.1 MG/DL Total Bilirubin 0.9 0.1-1.0 MG/DL Aspartate Amino Transf (AST/SGOT) 24 5-34 U/L Alanine Aminotransferase (ALT/SGPT) 36 0-55 U/L Alkaline Phosphatase 103 40-136 U/L Total Protein 7.2 6.4-8.2 GM/DL Albumin 4.3 3.2-4.5 GM/DL Beta-Hydroxybutyrate (Chem panel) 0.60 H 0.00-0.27 MMOL/L Glucometer 420 *H 432 *H 314 H 70-110 MG/DL (GRIFFIN GUTIERREZ MD) Medications Given in ED Current Medications Medications Dose Ordered Sig/Fer Route Start Time Stop Time Status Last Admin Dose Admin Insulin Human Regular 6 unit ONCE ONCE IV 01/27/22 17:00 01/27/22 17:01 DC 01/27/22 17:01 6 UNIT Insulin Human Regular 8 unit ONCE ONCE IV 01/27/22 15:30 01/27/22 15:31 DC 01/27/22 15:37 8 UNIT (GRIFFIN GUTIERREZ MD) Vital Signs/I&O 01/27/22 01/27/22 01/27/22 15:10 15:11 18:01 Temp 37.0 37.0 Pulse 85 80 82 Resp 20 20 B/P (MAP) 132/70 132/82 (99) 107/60 Pulse Ox 97 97 98 O2 Delivery Room Air Room Air Room Air (GRFIFIN GUTIERREZ MD) Vital Signs/I&O Capillary Refill : Less Than 3 Seconds (ZACHERY BAKER APRN) Blood Pressure Mean: 99 Point of Care Testing Finger Stick Blood Glucose: 421 Blood Glucose Action Taken: ZACHERY BAKER NP, NOTIFIED (ZACHERY BAKER APRN) Departure Impression Primary Impression: Hyperglycemia due to diabetes mellitus Disposition: HOME, SELF-CARE Condition: Stable Departure-Patient Inst. Decision time for Depature: 15:49 (ZACHERY BAKER APRN) [facility]errals: [facility] (PCP[facility]Family) Primary Care Physician Patient Instructions: Diabetes Type 1, Adult (DC) Add. Discharge Instructions: All discharge instructions reviewed with patient and/or family. Voiced understanding. ATTENDING PHYSICIAN NOTE: I was physically present as attending physician in the emergency department during the care of this patient, but I was not directly involved in the decision making or delivery of care for this patient. (GRIFFIN GUTIERREZ MD) ZACHERY BAKER APRN Jan 27, 2022 15:31 GRIFFIN GUTIERREZ MD Jan 27, 2022 20:46
[2022-01-27 15:34] LABS: ALBUMIN 4.3 GM/DL (3.2-4.5); POTASSIUM 4.7 MMOL/L (3.6-5.0)
[2022-01-27 15:36] LABS: CALCIUM 9.2 MG/DL (8.5-10.1)
[2022-01-27 15:37] LABS: TOTAL PROTEIN 7.2 GM/DL (6.4-8.2)
[2022-01-27 15:38] LABS: BILIRUBIN,TOTAL 0.9 MG/DL (0.1-1.0)
[2022-01-27 15:40] LABS: CREATININE SERUM 1.12 MG/DL (0.60-1.30)
[2022-01-27 18:01] VITALS: BP 107/60
== END 2022-01-27 18:08 | disposition home or self-care (01) ==
LOC: EDUNIT# 14:44 → ER 14:46
DX: E10.65 Type 1 diabetes mellitus with hyperglycemia (principal); E10.40 Type 1 diabetes mellitus with diabetic neuropathy, unspecified; F17.210 Nicotine dependence, cigarettes, uncomplicated
CPT/HCPCS: 36415; 80053; 82010; 82947; 85025

== ENCOUNTER 2022-02-13 11:37 | Emergency (ER) | payer SELFPAY ==
[~2022-02-13] VITALS: Ht 177.8 cm; Wt 79.8 kg
--- NOTE | 2022-02-13 12:02 | ED General ---
General Chief Complaint: Respiratory Problems Stated Complaint: SOA - HEADACHE - FATIGUED - LEG CRAMPS Source of Information: Patient Exam Limitations: No Limitations (RAFAEL CORDOVA MED STUDENT) History of Present Illness Date Seen by Provider: Feb 13, 2022 Time Seen by Provider: 11:45 Initial Comments Alvaro Ford Jr is a 36 yo male who presents for BILLINGS, fatigue, SOA and leg cramps. Pt has hx of Type I diabetes and PUD. Pt reports he has had BILLINGS, nausea, fatigue, SOA and leg cramping since yesterday afternoon. He went to [facility] walk in care where they found ketones in his urine, so they sent him here for evaluation. He was COVID neg at the clinic Pt reports he is having leg cramps several times per day. He has had nausea since last night, but has not vomited. He feels generalized weakness and numbness as well as SOA. Pt reports he has been out of his test strips since yesterday morning, so he is unsure what his blood sugar is. He gave himself 5 units of insulin this morning and has not eaten anything yet today. He reports he has been compliant with his insulin lately. He states he is drinking 8L of water per day and drinking several electrolyte replacement drinks since he works in the heat. Pt denies fever, chills, CP, cough, recent illness, dysuria or frequency out of normal, vomiting, abdominal pain. Blood glucose was 148 upon arrival to ED. BP was 133/91. Timing/Duration: 1 Day Associated Systoms: No Chest Pain, No Cough, No Fever/Chills; Headaches, Malaise, Nausea/Vomiting, Shortness of Air, Weakness (RAFAEL CORDOVA MED STUDENT) Allergies and Home Medications Allergies Coded Allergies: tramadol (Verified Adverse Reaction, Mild, N/V, 12/21/14) Patient Home Medication List Home Medication List Reviewed: Yes (JG VILLAVICENCIO MD) Insulin Aspart (Novolog Flexpen) 300 Units/3 Ml Solution, 5-8 UNITS SQ AC, (Reported) Entered as Reported by: SAMRA MCCORD on 06/07/21 0935 Insulin Detemir (Levemir Flextouch) 100 Unit/1 Ml Insuln.pen, 45 UNIT SQ HS, (Reported) Entered as Reported by: SAMRA MCCORD on 08/02/21 1522 Pantoprazole Sodium (Pantoprazole Sodium) 40 Mg Tablet.dr, 40 MG PO DAILY, (Reported) Entered as Reported by: SAMRA MCCORD on 06/07/21 09 Sucralfate (Carafate) 1 Gm Tablet, 1 GM PO ACHS, (Reported) Entered as Reported by: SAMRA MCCORD on 06/07/21 0935 Review of Systems Review of Systems Constitutional: No chills, No fever EENTM: No blurred vision, No vision loss Respiratory: No cough; short of breath Cardiovascular: No chest pain, No palpitations Gastrointestinal: No abdominal pain, No constipation, No diarrhea; nausea; No vomiting Genitourinary: No dysuria, No frequency Musculoskeletal: No back pain; muscle pain (leg cramps) Skin: No lesions, No rash Psychiatric/Neurological: Headache, Numbness, Weakness Hematologic/Lymphatic: No Symptoms Reported Immunological/Allergic: no symptoms reported (RAFAEL CORDOVA STUDENT) Past Ipzbkje-Ghdytu-Eubcnh Hx Immunizations Up To Date Tetanus Booster (TDap): Unknown First/Initial COVID19 Vaccinat: 2020 Second COVID19 Vaccination Kumar: 2020 Third COVID19 Vaccination Date: UNK (RAFAEL CORDOVA STUDENT) Seasonal Allergies Seasonal Allergies: No (RAFAEL CORDOVA) Past Medical History Surgery/Hospitalization HX: GALLBLADDER Surgeries: Yes Abdominal, Gallbladder Respiratory: Yes (copd dx by patient) COPD Currently Using CPAP: No Currently Using BIPAP: No Cardiac: Yes Hypertension Neurological: Yes Neuropathy Reproductive Disorders: No Sexually Transmitted Disease: No HIV/AIDS: No Genitourinary: Yes Kidney Infection Gastrointestinal: Yes (ELEVATED LIVER ENZYMES, Hep A; CANNIBIS HYPEREMESIS; ) Gastroesophageal Reflux, Liver Disease/Jaundice, Esophagitis Musculoskeletal: Yes Arthritis, Scoliosis, Chronic Back Pain Endocrine: Yes (Type I) Diabetes, Insulin dep HEENT: No Hearing Impairment: Denies Cancer: No Psychosocial: Yes (POLYSUBSTANCE ABUSE) Depression Integumentary: No Blood Disorders: No Adverse Reaction/Blood Tranf: No (RAFAEL CORDOVA STUDENT) Family Medical History Alcoholism 19 FATHER G8 BROTHER Congenital heart disease 19 FATHER Family history: Cardiovascular disease 19 FATHER, Onset:40's - 50 Family history: Diabetes mellitus 19 MOTHER Family history: Hypertension 19 FATHER Heart disease 19 FATHER History of - respiratory disease 19 FATHER History of drug abuse 19 MOTHER Hypercholesterolemia 19 FATHER Myocardial infarction 19 FATHER Seizure disorder 19 FATHER No Family History of: Abdominal aortic aneurysm Markos's disease Cancer Congestive heart failure Cystic fibrosis Dementia Dysphagia Family history: Allergy Family history: Alzheimer's disease Family history: Arthritis Family history: Asthma Family history: Breast disease Family history: Coronary thrombosis Family history: Gastrointestinal disease Family history: Glaucoma Family history: Osteoporosis Family history: Thyroid disorder Headache Hearing loss Hereditary disease History of - anemia History of - disorder Human immunodeficiency virus (HIV) seropositivity Infertile Kidney disease Malignant neoplasm of lung Parkinson's disease Prostate cancer Psychotic disorder Stroke Tuberculosis Visual impairment Heart Disease, Diabetes, Hypertension SOCIAL HISTORY: -SMOKES 1 PPD -History of DRUGS--+ IV METH USE, COCAINE USE, THC, RX DRUGS--ESPECIALLY HYDROCODONE AND ADDERALL -History of ETOH--HEAVY REGULAR/DAILY USE (RAFAEL CORDOVA [employer] STUDENT) Physical Exam Vital Signs Vital Signs - First Documented 02/13/22 11:39 Temp 36.8 Pulse 98 Resp 13 B/P (MAP) 117/87 (97) Pulse Ox 98 O2 Delivery Room Air (JG VILLAVICENCIO MD) Vital Signs Capillary Refill : (RAFAEL CORDOVA [employer] STUDENT) Height, Weight, BMI Height: 5'10.00" Weight: 240lbs. 0oz. [id number]; 167.00 BMI Method:Stated General Appearance: No Apparent Distress, WD/WN HEENT: PERRL/EOMI, Pharynx Normal, Moist Mucous Membranes Neck: Full Range of Motion, Normal Inspection Respiratory: Chest Non Tender, Lungs Clear, Normal Breath Sounds Cardiovascular: Regular Rate, Rhythm, No Murmur Gastrointestinal: Normal Bowel Sounds, Non Tender, Soft Extremity: Non Tender, No Pedal Edema Neurologic/Psychiatric: Alert, Oriented x3, Normal Mood/Affect Skin: Warm/Dry, Pallor Lymphatic: No Adenopathy (RAFAEL CORDOVA [employer] STUDENT) Progress/Results/Core Measures Suspected Sepsis SIRS Temperature: Pulse: Respiratory Rate: Laboratory Tests 02/13/22 11:54: White Blood Count 7.6 Blood Pressure / Mean: Laboratory Tests 02/13/22 11:54: Creatinine 0.78, Platelet Count 240, Total Bilirubin 0.5 (RAFAEL CORDOVA [employer] STUDENT) Results/Orders Lab Results Laboratory Tests Test 02/13/22 11:51 02/13/22 11:54 02/13/22 12:42 Range/Units Glucometer 148 H 70-110 MG/DL White Blood Count 7.6 4.3-11.0 10^3/uL Red Blood Count 4.73 4.30-5.52 10^6/uL Hemoglobin 13.7 13.3-17.7 g/dL Hematocrit 38 L 40-54 % Mean Corpuscular Volume 81 80-99 fL Mean Corpuscular Hemoglobin 29 25-34 pg Mean Corpuscular Hemoglobin Concent 36 32-36 g/dL Red Cell Distribution Width 12.1 10.0-14.5 % Platelet Count 240 130-400 10^3/uL Mean Platelet Volume 9.0 9.0-12.2 fL Immature Granulocyte % (Auto) 0 % Neutrophils (%) (Auto) 63 42-75 % Lymphocytes (%) (Auto) 29 12-44 % Monocytes (%) (Auto) 5 0-12 % Eosinophils (%) (Auto) 1 0-10 % Basophils (%) (Auto) 1 0-10 % Neutrophils # (Auto) 4.8 1.8-7.8 10^3/uL Lymphocytes # (Auto) 2.2 1.0-4.0 10^3/uL Monocytes # (Auto) 0.4 0.0-1.0 10^3/uL Eosinophils # (Auto) 0.1 0.0-0.3 10^3/uL Basophils # (Auto) 0.1 0.0-0.1 10^3/uL Immature Granulocyte # (Auto) 0.0 0.0-0.1 10^3/uL Sodium Level 141 135-145 MMOL/L Potassium Level 4.0 3.6-5.0 MMOL/L Chloride Level 103 98-107 MMOL/L Carbon Dioxide Level 28 21-32 MMOL/L Anion Gap 10 5-14 MMOL/L Blood Urea Nitrogen 18 7-18 MG/DL Creatinine 0.78 0.60-1.30 MG/DL Estimat Glomerular Filtration Rate 120 BUN/Creatinine Ratio 23 Glucose Level 159 H 70-105 MG/DL Calcium Level 9.3 8.5-10.1 MG/DL Corrected Calcium 9.2 8.5-10.1 MG/DL Total Bilirubin 0.5 0.1-1.0 MG/DL Aspartate Amino Transf (AST/SGOT) 25 5-34 U/L Alanine Aminotransferase (ALT/SGPT) 61 H 0-55 U/L Alkaline Phosphatase 89 40-136 U/L Total Creatine Kinase 87 30-200 U/L Total Protein 6.8 6.4-8.2 GM/DL Albumin 4.1 3.2-4.5 GM/DL Urine Color YELLOW Urine Clarity CLEAR Urine pH 5.5 5-9 Urine Specific [place] >=1.030 1.016-1.022 Urine Protein 2+ H NEGATIVE Urine Glucose (UA) NEGATIVE NEGATIVE Urine Ketones TRACE H NEGATIVE Urine Nitrite NEGATIVE NEGATIVE Urine Bilirubin NEGATIVE NEGATIVE Urine Urobilinogen 0.2 < = 1.0 MG/DL Urine Leukocyte Esterase NEGATIVE NEGATIVE Urine RBC (Auto) TRACE-I H NEGATIVE Urine RBC 0-2 /HPF Urine WBC 0-2 /HPF Urine Crystals NONE /LPF Urine Bacteria NEGATIVE /HPF Urine Casts NONE /LPF Urine Mucus LARGE H /LPF Urine Culture Indicated NO (JG VILLAVICENCIO MD) My Orders Orders - JG VILLAVICENCIO MD Cbc With Automated Diff (02/13/22 12:13) Comprehensive Metabolic Panel (02/13/22 12:13) Creatine Kinase (02/13/22 12:13) Ua Culture If Indicated (02/13/22 12:13) Ns Iv 1000 Ml (Sodium Chloride 0.9%) (02/13/22 12:15) Ketorolac Injection (Toradol Injection) (02/13/22 13:00) Metoclopramide Injection (Reglan Injecti (02/13/22 13:00) Diphenhydramine Injection (Benadryl Inje (02/13/22 13:00) Ns Iv 1000 Ml (Sodium Chloride 0.9%) (02/13/22 13:30) (JG VILLAVICENCIO MD) Medications Given in ED (JG VILLAVICENCIO MD) Vital Signs/I&O 02/13/22 02/13/22 11:39 14:22 Temp 36.8 Pulse 98 Resp 13 12 B/P (MAP) 117/87 (97) 110/74 Pulse Ox 98 98 O2 Delivery Room Air Room Air 02/14/22 00:00 Intake Total 2000 ml Balance 2000 ml (JG VILLAVICENCIO MD) Vital Signs/I&O Capillary Refill : (RAFAEL CORDOVA MED STUDENT) Progress Note : Time: 12:25 Progress Note CBC, CMP, CK and UA ordered. CBC unremarkable. (RAFAEL CORDOVA MED STUDENT) Progress Note #1: Time: 13:17 Progress Note 36yo with history of DM, presents with feelings of generalized malaise and heada jaziel.n leg cramps and SOB. He went to [facility] walk in and tested positive for ketones, so they sent him here. No fevers, chills, URI sx. tested neg for COVID at [facility]. out of test strips 24 hours. Did give himself insulin this am but has not eaten. Just feels puny. no urinary problems, no diarrhea. has been working out in the heat. Exam is unremarkable. Normal Neuro. denies head injury, LOC. plan, labs, fluids and headache cocktail Progress Note #2: Time: 13:52 Progress Note Feeling better. Feels comfortable going home. (JG VILLAVICENCIO MD) Departure Impression Primary Impression: Headache Qualified Codes: G44.209 - Tension-type headache, unspecified, not intractable Additional Impression: Dehydration Disposition: 01 HOME, SELF-CARE Condition: Improved Departure-Patient Inst. Decision time for Depature: 13:20 (JG VILLAVICENCIO MD) Referrals: [facility] Primary Care Physician Patient Instructions: Headache, Adult ED, Dehydration, Adult ED Add. Discharge Instructions: continue to drink fluids to stay hydrated. use caution when taking your insulin without having test strips - try and get some more today. Tylenol and or ibuprofen as needed for headache. or instead of ibuprofen you can use over the counter Aleve - 2 pills twice a day. Return to the Emergency Department for any new, concerning or emergent complaints. Verification and Attestation of Medical Student E/M Service A medical student performed and documented this service in my presence. I reviewed and verified all information documented by the medical student and made modifications to such information, when appropriate. I personally performed the physical exam and medical decision making. Jg Villavicencio, Feb 14, 2022,06:11 (JG VILLAVICENCIO MD) Copy Copies To 1: WESTON DOTY [place] A MED STUDENT Feb 13, 2022 12:02 JG VILLAVICENCIO MD Feb 13, 2022 13:22
[2022-02-13] MEDS ORDERED: NS IV 1000 ML 1,000 ML IV SCH ×2 (12:15→13:30)
[2022-02-13 12:23] LABS: BASOPHILS # (AUTO) 0.1 10^3/uL (0.0-0.1); BASOPHILS % (AUTO) 1 % (0-10); EOSINOPHILS # (AUTO) 0.1 10^3/uL (0.0-0.3); EOSINOPHILS % (AUTO) 1 % (0-10); HEMATOCRIT 38 % (40-54); HEMOGLOBIN 13.7 g/dL (13.3-17.7); LYMPHOCYTES # (AUTO) 2.2 10^3/uL (1.0-4.0); LYMPHOCYTES % (AUTO) 29 % (12-44); MEAN CORPUSCULAR HEMOGLOBIN 29 pg (25-34); MEAN CORPUSCULAR HGB CONC 36 g/dL (32-36); MEAN CORPUSCULAR VOLUME 81 fL (80-99); MONOCYTES # (AUTO) 0.4 10^3/uL (0.0-1.0); MONOCYTES % (AUTO) 5 % (0-12); NEUTROPHILS # (AUTO) 4.8 10^3/uL (1.8-7.8); NEUTROPHILS % (AUTO) 63 % (42-75); PLATELET COUNT 240 10^3/uL (130-400); WHITE BLOOD COUNT 7.6 10^3/uL (4.3-11.0)
[2022-02-13 12:24] LABS: TOTAL PROTEIN 6.8 GM/DL (6.4-8.2)
[2022-02-13 12:26] LABS: BILIRUBIN,TOTAL 0.5 MG/DL (0.1-1.0)
[2022-02-13 12:28] LABS: CREATININE SERUM 0.78 MG/DL (0.60-1.30)
[2022-02-13 12:44] LABS: ALBUMIN 4.1 GM/DL (3.2-4.5); CALCIUM 9.3 MG/DL (8.5-10.1)
[2022-02-13 12:50] LABS: CLARITY,URINE CLEAR; COLOR,URINE YELLOW; GLUCOSE, URINE (UA) NEGATIVE (NEGATIVE); KETONES,URINE TRACE (NEGATIVE); LEUKOCYTE ESTERASE ,URINE NEGATIVE (NEGATIVE); NITRITE,URINE NEGATIVE (NEGATIVE); PH,URINE 5.5 (5-9); PROTEIN,URINE 2+ (NEGATIVE)
[2022-02-13] MEDS ORDERED: diphenhydrAMINE 50 MG/ML INJ (BENADRYL) IVP ONE (13:00)
[2022-02-13] MEDS ORDERED: KETOROLAC 30 MG/ML VIAL IVP ONE (13:00)
[2022-02-13] MEDS ORDERED: METOCLOPRAMIDE INJ 10 MG/2 ML (REGLAN) IVP ONE (13:00)
[2022-02-13 13:08] LABS: BACTERIA,URINE NEGATIVE /HPF; BILIRUBIN,URINE NEGATIVE (NEGATIVE); RBC,URINE 0-2 /HPF; WBC,URINE 0-2 /HPF
[2022-02-13 14:22] VITALS: BP 110/74
== END 2022-02-13 14:22 | disposition home or self-care (01) ==
LOC: EDUNIT# 11:37 → ER 11:38
DX: E86.0 Dehydration (principal); E10.9 Type 1 diabetes mellitus without complications; F17.210 Nicotine dependence, cigarettes, uncomplicated
CPT/HCPCS: 36415; 80053; 81000; 82550; 82947; 85025

== ENCOUNTER 2022-04-07 12:03 | Emergency (ER) | payer SELFPAY ==
[~2022-04-07] VITALS: Ht 177.8 cm; Wt 79.4 kg
--- NOTE | 2022-04-07 12:20 | ED General ---
General Chief Complaint: Glucose Problems Stated Complaint: SWEATING AND VOMITING Nursing Triage Note: PT TO ED BY EMS WITH C/O HYPOGLYCEMIA. EMS REPORTS THEY WERE CALLED FOR N/V AND SWEATING. PT BLOOD SUGAR ON SCENE WAS 78, GAVE 250 ML D10 AND 4 MG ZOFRAN EN ROUTE. PT REPORTS HE WOKE UP WITH N/V THIS MORNING. Source of Information: Patient Exam Limitations: No Limitations History of Present Illness Date Seen by Provider: Apr 07, 2022 Time Seen by Provider: 12:00 Initial Comments Patient is a 36-year-old male who presents to the emergency department today chief complaint nausea, vomiting. Patient states symptoms started last night. He called EMS as he was walking to the hospital. They found him profusely diaphoretic, dry heaving at a local convenience store. Blood sugar was 78. He had taken his insulin this morning. They felt like this was a low blood sugar for Alvaro and started D10. He was given 4 mg of Zofran. His heart rate was reported bradycardic in the 50s. Normal blood pressure. Alvaro is actively dry heaving as I entered the room. Complaining of feeling cold and soaked in sweat. Slightly pale. He denies abdominal pain. No shortness of breath or cough. No COVID concerns. He does state that he smokes marijuana every day. He states Reglan works well for his nausea and vomiting. Normal bowel movements nonblack nonbloody. No urinary complaints. All other review of systems reviewed and negative except as stated Timing/Duration: 4-6 Hours Severity: Severe Associated Systoms: Diaphoresis, Nausea/Vomiting, Other (feels cold) Allergies and Home Medications Allergies Coded Allergies: tramadol (Verified Adverse Reaction, Mild, N/V, 12/21/14) Patient Home Medication List Home Medication List Reviewed: Yes Insulin Aspart (Novolog Flexpen) 300 Units/3 Ml Solution, 5-8 UNITS SQ AC, (Reported) Entered as Reported by: SAMRA MCCORD on 06/07/21 0935 Insulin Detemir (Levemir Flextouch) 100 Unit/1 Ml Insuln.pen, 45 UNIT SQ HS, (Reported) Entered as Reported by: SAMRA MCCORD on 08/02/21 1522 Pantoprazole Sodium (Pantoprazole Sodium) 40 Mg Tablet.dr, 40 MG PO DAILY, (R eported) Entered as Reported by: SAMRA MCCORD on 06/07/21934 Sucralfate (Carafate) 1 Gm Tablet, 1 GM PO ACHS, (Reported) Entered as Reported by: SAMRA MCCORD on 06/07/21934 Review of Systems Review of Systems Constitutional: see HPI, chills EENTM: no symptoms reported Respiratory: no symptoms reported Gastrointestinal: nausea, vomiting Genitourinary: no symptoms reported Musculoskeletal: no symptoms reported Skin: no symptoms reported All Other Systems Reviewed Negative Unless Noted: Yes Past Fypsnhv-Ojmdrd-Fwcokl Hx Patient Social History Tobacco Use?: No Use of E-Cig and/or Vaping dev: No Substance use?: Yes Substance type: Marijuana Substance frequency: Daily Alcohol Use?: No Pt feels they are or have been: No Immunizations Up To Date Tetanus Booster (TDap): Unknown Influenza Vaccine Up-to-Date: No; Not Current First/Initial COVID19 Vaccinat: 2020 Second COVID19 Vaccination Kumar: 2020 Third COVID19 Vaccination Date: UN Seasonal Allergies Seasonal Allergies: No Past Medical History Surgery/Hospitalization HX: GALLBLADDER, DM Surgeries: Yes Abdominal, Gallbladder Respiratory: Yes (copd dx by patient) COPD Currently Using CPAP: No Currently Using BIPAP: No Cardiac: Yes Hypertension Neurological: Yes Neuropathy Reproductive Disorders: No Sexually Transmitted Disease: No HIV/AIDS: No Genitourinary: Yes Kidney Infection Gastrointestinal: Yes (ELEVATED LIVER ENZYMES, Hep A; CANNIBIS HYPEREMESIS; ) Gastroesophageal Reflux, Liver Disease/Jaundice, Esophagitis Musculoskeletal: Yes Arthritis, Scoliosis, Chronic Back Pain Endocrine: Yes (Type I) Diabetes, Insulin dep HEENT: No Hearing Impairment: Denies Cancer: No Psychosocial: Yes (POLYSUBSTANCE ABUSE) Depression Integumentary: No Blood Disorders: No Adverse Reaction/Blood Tranf: No Family Medical History Alcoholism 19 FATHER G8 BROTHER Congenital heart disease 19 FATHER Family history: Cardiovascular disease 19 FATHER, Onset:40's - 50 Family history: Diabetes mellitus 19 MOTHER Family history: Hypertension 19 FATHER Heart disease 19 FATHER History of - respiratory disease 19 FATHER History of drug abuse 19 MOTHER Hypercholesterolemia 19 FATHER Myocardial infarction 19 FATHER Seizure disorder 19 FATHER No Family History of: Abdominal aortic aneurysm Markos's disease Cancer Congestive heart failure Cystic fibrosis Dementia Dysphagia Family history: Allergy Family history: Alzheimer's disease Family history: Arthritis Family history: Asthma Family history: Breast disease Family history: Coronary thrombosis Family history: Gastrointestinal disease Family history: Glaucoma Family history: Osteoporosis Family history: Thyroid disorder Headache Hearing loss Hereditary disease History of - anemia History of - disorder Human immunodeficiency virus (HIV) seropositivity Infertile Kidney disease Malignant neoplasm of lung Parkinson's disease Prostate cancer Psychotic disorder Stroke Tuberculosis Visual impairment Heart Disease, Diabetes, Hypertension SOCIAL HISTORY: -SMOKES 1 PPD -History of DRUGS--+ IV METH USE, COCAINE USE, THC, RX DRUGS--ESPECIALLY HYDROCODONE AND ADDERALL -History of ETOH--HEAVY REGULAR/DAILY USE Physical Exam Vital Signs Vital Signs - First Documented 04/07/22 12:05 Temp 35.3 Pulse 63 Resp 21 B/P (MAP) 161/108 (125) Pulse Ox 100 O2 Delivery Room Air Capillary Refill : Less Than 3 Seconds Height, Weight, BMI Height: 5'10.00" Weight: 240lbs. 0oz. 108.978222jb; 25.00 BMI Method:Stated General Appearance: WD/WN, Mild Distress Eyes: Bilateral Eye Normal Inspection, Bilateral Eye PERRL, Bilateral Eye EOMI Respiratory: Lungs Clear, Normal Breath Sounds, No Accessory Muscle Use, No Respiratory Distress Cardiovascular: Regular Rate, Rhythm, Bradycardia (50's) Gastrointestinal: Non Tender, Soft Extremity: Normal Inspection, Normal Range of Motion Neurologic/Psychiatric: Alert, Oriented x3, No Motor/Sensory Deficits, Normal Mood/Affect Skin: Diaphoresis (profuse diaphoresis), Pallor Progress/Results/Core Measures Suspected Sepsis SIRS Temperature: Pulse: 63 Respiratory Rate: 21 Laboratory Tests 04/07/22 12:15: White Blood Count 4.7 Blood Pressure 161 /108 Mean: 125 Laboratory Tests 04/07/22 12:15: Creatinine 0.87, Platelet Count 194, Total Bilirubin 0.6 Results/Orders Lab Results Laboratory Tests Test 04/07/22 12:14 04/07/22 12:15 Range/Units Glucometer 244 H 70-110 MG/DL White Blood Count 4.7 4.3-11.0 10^3/uL Red Blood Count 4.58 4.30-5.52 10^6/uL Hemoglobin 12.9 L 13.3-17.7 g/dL Hematocrit 38 L 40-54 % Mean Corpuscular Volume 82 80-99 fL Mean Corpuscular Hemoglobin 28 25-34 pg Mean Corpuscular Hemoglobin Concent 34 32-36 g/dL Red Cell Distribution Width 12.0 10.0-14.5 % Platelet Count 194 130-400 10^3/uL Mean Platelet Volume 9.1 9.0-12.2 fL Immature Granulocyte % (Auto) 0 % Neutrophils (%) (Auto) 51 42-75 % Lymphocytes (%) (Auto) 37 12-44 % Monocytes (%) (Auto) 6 0-12 % Eosinophils (%) (Auto) 5 0-10 % Basophils (%) (Auto) 1 0-10 % Neutrophils # (Auto) 2.4 1.8-7.8 10^3/uL Lymphocytes # (Auto) 1.7 1.0-4.0 10^3/uL Monocytes # (Auto) 0.3 0.0-1.0 10^3/uL Eosinophils # (Auto) 0.2 0.0-0.3 10^3/uL Basophils # (Auto) 0.1 0.0-0.1 10^3/uL Immature Granulocyte # (Auto) 0.0 0.0-0.1 10^3/uL Sodium Level 137 135-145 MMOL/L Potassium Level 3.3 L 3.6-5.0 MMOL/L Chloride Level 102 98-107 MMOL/L Carbon Dioxide Level 24 21-32 MMOL/L Anion Gap 11 5-14 MMOL/L Blood Urea Nitrogen 21 H 7-18 MG/DL Creatinine 0.87 0.60-1.30 MG/DL Estimat Glomerular Filtration Rate 116 BUN/Creatinine Ratio 24 Glucose Level 223 H 70-105 MG/DL Calcium Level 9.6 8.5-10.1 MG/DL Corrected Calcium 9.8 8.5-10.1 MG/DL Total Bilirubin 0.6 0.1-1.0 MG/DL Aspartate Amino Transf (AST/SGOT) 30 5-34 U/L Alanine Aminotransferase (ALT/SGPT) 35 0-55 U/L Alkaline Phosphatase 65 40-136 U/L Total Protein 6.4 6.4-8.2 GM/DL Albumin 3.8 3.2-4.5 GM/DL Lipase < 4 L 8-78 U/L My Orders Orders - JG VILLAVICENCIO MD Ns Iv 1000 Ml (Sodium Chloride 0.9%) (04/07/22 12:30) Haloperidol Injection (Haldol Injectio (04/07/22 12:30) Diphenhydramine Injection (Benadryl Inje (04/07/22 12:30) Ed Iv/Invasive Line Start (04/07/22 12:21) Cbc With Automated Diff (04/07/22 12:21) Comprehensive Metabolic Panel (04/07/22 12:21) Lipase (04/07/22 12:21) Ondansetron Injection (Zofran Injectio (04/07/22 13:45) Ns Iv 1000 Ml (Sodium Chloride 0.9%) (04/07/22 13:45) Medications Given in ED Current Medications Medications Dose Ordered Sig/Fer Route Start Time Stop Time Status Last Admin Dose Admin Diphenhydramine HCl 25 mg ONCE ONCE IVP 04/07/22 12:30 04/07/22 12:31 DC 04/07/22 12:24 25 MG Haloperidol Lactate 5 mg ONCE ONCE IV 04/07/22 12:30 04/07/22 12:31 DC 04/07/22 12:24 5 MG Ondansetron HCl 8 mg ONCE ONCE IVP 04/07/22 13:45 04/07/22 13:46 DC 04/07/22 13:55 8 MG Vital Signs/I&O 04/07/22 12:05 Temp 35.3 Pulse 63 Resp 21 B/P (MAP) 161/108 (125) Pulse Ox 100 O2 Delivery Room Air Capillary Refill : Less Than 3 Seconds Blood Pressure Mean: 125 Progress Note : Time: 14:22 Progress Note Feeling better, mild nausea will repeat second liter of saline. Also give some Zofran to help prevent symptoms from worsening. Anticipate discharge to home. Labs look good. No clinical or objective findings to warrant further studies from the emergency department. Exam is inconsistent for any acute surgical process. He is not hypo or severely hyperglycemic. He is not hypokalemic. Normal vital signs. Not significantly dehydrated. Will send with a prescription for Reglan for his nausea as he states that works well. Encouraged close monitoring of his blood sugars. Return precautions provided. Departure Impression Primary Impression: Nausea & vomiting Qualified Codes: R11.2 - Nausea with vomiting, unspecified Additional Impressions: Diabetes mellitus, insulin dependent (IDDM), uncontrolled Cannabis use disorder Disposition: HOME, SELF-CARE Condition: Improved Departure-Patient Inst. Decision time for Depature: 14:40 Referrals: [facility] (PCP/Family) Primary Care Physician Patient Instructions: Nausea and Vomiting, Adult Add. Discharge Instructions: Take the Reglan, 10 mg every 6 hours as needed for nausea. You can take 1 Benadryl tablet which is 25 mg with this every 6 hours. This will also help with nausea. You should consider stopping smoking marijuana as it can cause the symptoms you have experienced today. Keep a close eye on your blood sugar. Take your medications as directed. Come back to the emergency department for any new, concerning or emergent complaints. Follow-up with [facility] as scheduled Scripts Metoclopramide HCl (Reglan) 10 Mg Tablet 10 MG PO Q6H PRN for nausea, #20 TAB Prov: JG VILLAVICENCIO MD 04/07/22 Copy Copies To 1: WESTON DOTY KATHRYN M MD Apr 07, 2022 12:20
[2022-04-07 12:29] LABS: BASOPHILS # (AUTO) 0.1 10^3/uL (0.0-0.1); BASOPHILS % (AUTO) 1 % (0-10); EOSINOPHILS # (AUTO) 0.2 10^3/uL (0.0-0.3); EOSINOPHILS % (AUTO) 5 % (0-10); HEMATOCRIT 38 % (40-54); HEMOGLOBIN 12.9 g/dL (13.3-17.7); LYMPHOCYTES # (AUTO) 1.7 10^3/uL (1.0-4.0); LYMPHOCYTES % (AUTO) 37 % (12-44); MEAN CORPUSCULAR HEMOGLOBIN 28 pg (25-34); MEAN CORPUSCULAR HGB CONC 34 g/dL (32-36); MEAN CORPUSCULAR VOLUME 82 fL (80-99); MEAN PLATELET VOLUME 9.1 fL (9.0-12.2); MONOCYTES # (AUTO) 0.3 10^3/uL (0.0-1.0); MONOCYTES % (AUTO) 6 % (0-12); NEUTROPHILS # (AUTO) 2.4 10^3/uL (1.8-7.8); NEUTROPHILS % (AUTO) 51 % (42-75); PLATELET COUNT 194 10^3/uL (130-400); WHITE BLOOD COUNT 4.7 10^3/uL (4.3-11.0)
[2022-04-07] MEDS ORDERED: HALOPERIDOL 5 MG/ML (HALDOL) VIAL IV ONE (12:30)
[2022-04-07] MEDS ORDERED: NS IV 1000 ML 1,000 ML IV SCH ×2 (12:30→13:45)
[2022-04-07] MEDS ORDERED: diphenhydrAMINE 50 MG/ML INJ (BENADRYL) IVP ONE ×2 (12:30→14:45)
[2022-04-07 12:44] LABS: ALBUMIN 3.8 GM/DL (3.2-4.5)
[2022-04-07 12:45] LABS: CHLORIDE 102 MMOL/L (98-107); POTASSIUM 3.3 MMOL/L (3.6-5.0); SODIUM 137 MMOL/L (135-145)
[2022-04-07 12:46] LABS: CALCIUM 9.6 MG/DL (8.5-10.1)
[2022-04-07 12:47] LABS: GLUCOSE 223 MG/DL (70-105); TOTAL PROTEIN 6.4 GM/DL (6.4-8.2)
[2022-04-07 12:48] LABS: CARBON DIOXIDE 24 MMOL/L (21-32)
[2022-04-07 12:49] LABS: BILIRUBIN,TOTAL 0.6 MG/DL (0.1-1.0)
[2022-04-07 12:51] LABS: ALKALINE PHOSPHATASE 65 U/L (40-136); CREATININE SERUM 0.87 MG/DL (0.60-1.30); GFR ESTIMATED 116
[2022-04-07 12:52] LABS: BUN/CREATININE RATIO 24
[2022-04-07 12:54] LABS: ALANINE AMINOTRANSFERASE 35 U/L (0-55); LIPASE < 4 U/L (8-78)
[2022-04-07] MEDS ORDERED: ONDANSETRON 4 MG/2 ML (SDV) Z0FRAN IVP ONE (13:45)
[2022-04-07] MEDS ORDERED: METO-310 PO (14:22)
[2022-04-07 15:17] VITALS: BP 143/65
== END 2022-04-07 15:17 | disposition home or self-care (01) ==
LOC: EDUNIT# 12:03 → ER 12:05
DX: R11.2 Nausea with vomiting, unspecified (principal); E10.9 Type 1 diabetes mellitus without complications; F12.90 Cannabis use, unspecified, uncomplicated
CPT/HCPCS: 36415; 80053; 82947; 83690; 85025; 99283

== ENCOUNTER 2022-05-26 13:38 | Emergency (ER) | payer SELFPAY ==
[~2022-05-26] VITALS: Ht 178 cm; Wt 79.4 kg
[2022-05-26] MEDS ORDERED: ONDANSETRON 4 MG/2 ML (SDV) Z0FRAN IVP ONE (14:00)
[2022-05-26] MEDS ORDERED: NS IV 1000 ML 1,000 ML IV SCH (14:00)
[2022-05-26] MEDS ORDERED: inSUlin (REGULAR) HUMAN 1 UNIT/0.01 ML (CHARGE PER UNIT) IV ONE (14:00)
--- NOTE | 2022-05-26 14:13 | ED General ---
General Chief Complaint: Glucose Problems Stated Complaint: NAUSEA | DIABETES Nursing Triage Note: PT STATES HIS FATHER ABOUT 2 WEEKS AGO AND HE HASN'T BEEN TAKING CARE OF HIMSELF, DIABETIC AND HAS NOT CHECKED HIS SUGAR LATELY, TOOK 10 U OF NOVALOG ABOUT 1230ISH BUT DIDN'T CHECK GLUCOSE AND DID NOT EAT Source of Information: Patient Exam Limitations: No Limitations History of Present Illness Date Seen by Provider: May 26, 2022 Time Seen by Provider: 13:50 Initial Comments 36-year-old male presents to the ER with concerns for possibly high blood sugar. Patient reports he has not been taking his insulin over the last 2 weeks and he also misplaced his glucometer has not been checking his blood sugar. Patient reports that his father 2 weeks ago, this has resulted in him not caring about taking care of himself. Patient is tearful during exam. Patient denies thoughts of suicide. Patient reports he took 10 units of NovoLog around noon today. Patient reports polydipsia and polyuria. Patient reports nausea with an episode of vomiting. Denies abdominal pain today but reports left upper quadrant abdominal pain couple days ago. Patient has a history of substance abuse, patient states that he has no desire to use drugs. Associated Systoms: No Fever/Chills; Nausea/Vomiting Allergies and Home Medications Allergies Coded Allergies: tramadol (Verified Adverse Reaction, Mild, N/V, 12/21/14) Patient Home Medication List Home Medication List Reviewed: Yes Insulin Aspart (Novolog Flexpen) 300 Units/3 Ml Solution, 5-8 UNITS SQ AC, (Reported) Entered as Reported by: SAMRA MCCORD on 06/07/21 0935 Insulin Detemir (Levemir Flextouch) 100 Unit/1 Ml Insuln.pen, 45 UNIT SQ HS, (Reported) Entered as Reported by: SAMRA MCCORD on 08/02/21 1522 Metoclopramide HCl (Reglan) 10 Mg Tablet, 10 MG PO Q6H PRN for nausea Prescribed by: JG VILLAVICENCIO on 04/07/22 1422 Pantoprazole Sodium (Pantoprazole Sodium) 40 Mg Tablet.dr, 40 MG PO DAILY, (Reported) Entered as Reported by: SAMRA MCCORD on 06/07/21 0935 Sucralfate (Carafate) 1 Gm Tablet, 1 GM PO ACHS, (Reported) Entered as Reported by: SAMRA MCCORD on 06/07/21 0935 Review of Systems Review of Systems Constitutional: no symptoms reported Respiratory: no symptoms reported Cardiovascular: no symptoms reported Gastrointestinal: nausea, vomiting Genitourinary: frequency Psychiatric/Neurological: Depressed Polydipsia Past Dmwrakd-Qhwkpr-Vejnko Hx Immunizations Up To Date Tetanus Booster (TDap): Unknown First/Initial COVID19 Vaccinat: 2020 Second COVID19 Vaccination Kumar: 2020 Third COVID19 Vaccination Date: UNK Seasonal Allergies Seasonal Allergies: No Past Medical History Surgery/Hospitalization HX: GALLBLADDER, DM Surgeries: Yes Abdominal, Gallbladder Respiratory: Yes (copd dx by patient) COPD Currently Using CPAP: No Currently Using BIPAP: No Cardiac: Yes Hypertension Neurological: Yes Neuropathy Reproductive Disorders: No Sexually Transmitted Disease: No HIV/AIDS: No Genitourinary: Yes Kidney Infection Gastrointestinal: Yes (ELEVATED LIVER ENZYMES, Hep A; CANNIBIS HYPEREMESIS; ) Gastroesophageal Reflux, Liver Disease/Jaundice, Esophagitis Musculoskeletal: Yes Arthritis, Scoliosis, Chronic Back Pain Endocrine: Yes (Type I) Diabetes, Insulin dep HEENT: No Hearing Impairment: Denies Cancer: No Psychosocial: Yes (POLYSUBSTANCE ABUSE) Depression Integumentary: No Blood Disorders: No Adverse Reaction/Blood Tranf: No Family Medical History Alcoholism 19 FATHER G8 BROTHER Congenital heart disease 19 FATHER Family history: Cardiovascular disease 19 FATHER, Onset:40's - 50 Family history: Diabetes mellitus 19 MOTHER Family history: Hypertension 19 FATHER Heart disease 19 FATHER History of - respiratory disease 19 FATHER History of drug abuse 19 MOTHER Hypercholesterolemia 19 FATHER Myocardial infarction 19 FATHER Seizure disorder 19 FATHER No Family History of: Abdominal aortic aneurysm Heard's disease Cancer Congestive heart failure Cystic fibrosis Dementia Dysphagia Family history: Allergy Family history: Alzheimer's disease Family history: Arthritis Family history: Asthma Family history: Breast disease Family history: Coronary thrombosis Family history: Gastrointestinal disease Family history: Glaucoma Family history: Osteoporosis Family history: Thyroid disorder Headache Hearing loss Hereditary disease History of - anemia History of - disorder Human immunodeficiency virus (HIV) seropositivity Infertile Kidney disease Malignant neoplasm of lung Parkinson's disease Prostate cancer Psychotic disorder Stroke Tuberculosis Visual impairment Heart Disease, Diabetes, Hypertension SOCIAL HISTORY: -SMOKES 1 PPD -History of DRUGS--+ IV METH USE, COCAINE USE, THC, RX DRUGS--ESPECIALLY HYDROCODONE AND ADDERALL -History of ETOH--HEAVY REGULAR/DAILY USE Physical Exam Vital Signs Vital Signs - First Documented 05/26/22 13:43 Temp 36.1 Pulse 97 Resp 18 B/P (MAP) 121/90 (100) Pulse Ox 97 O2 Delivery Room Air Capillary Refill : Less Than 3 Seconds Height, Weight, BMI Height: 5'10.00" Weight: 240lbs. 0oz. [id number]; 25.00 BMI Method:Stated General Appearance: WD/WN, Other (Depressed, tearful) Neck: Full Range of Motion, Normal Inspection, Supple Respiratory: Lungs Clear, Normal Breath Sounds, No Accessory Muscle Use, No Respiratory Distress Cardiovascular: Regular Rate, Rhythm, No Edema, No Gallop, No JVD, No Murmur Gastrointestinal: Non Tender, Soft Neurologic/Psychiatric: Alert, Oriented x3, Depressed Affect, Other (tearful) Skin: Normal Color, Warm/Dry Progress/Results/Core Measures Suspected Sepsis SIRS Temperature: Pulse: 97 Respiratory Rate: 18 Laboratory Tests 05/26/22 14:19: White Blood Count 5.7 Blood Pressure 121 /90 Mean: 100 Laboratory Tests 05/26/22 14:19: Creatinine 1.02, Platelet Count 227, Total Bilirubin 0.7 Results/Orders Lab Results Laboratory Tests Test 05/26/22 13:51 05/26/22 14:19 05/26/22 14:26 05/26/22 15:08 Range/Units Glucometer 404 *H 270 H 70-110 MG/DL White Blood Count 5.7 4.3-11.0 10^3/uL Red Blood Count 4.56 4.30-5.52 10^6/uL Hemoglobin 12.9 L 13.3-17.7 g/dL Hematocrit 37 L 40-54 % Mean Corpuscular Volume 81 80-99 fL Mean Corpuscular Hemoglobin 28 25-34 pg Mean Corpuscular Hemoglobin Concent 35 32-36 g/dL Red Cell Distribution Width 11.8 10.0-14.5 % Platelet Count 227 130-400 10^3/uL Mean Platelet Volume 9.1 9.0-12.2 fL Immature Granulocyte % (Auto) 1 % Neutrophils (%) (Auto) 55 42-75 % Lymphocytes (%) (Auto) 34 12-44 % Monocytes (%) (Auto) 7 0-12 % Eosinophils (%) (Auto) 3 0-10 % Basophils (%) (Auto) 1 0-10 % Neutrophils # (Auto) 3.1 1.8-7.8 10^3/uL Lymphocytes # (Auto) 1.9 1.0-4.0 10^3/uL Monocytes # (Auto) 0.4 0.0-1.0 10^3/uL Eosinophils # (Auto) 0.1 0.0-0.3 10^3/uL Basophils # (Auto) 0.1 0.0-0.1 10^3/uL Immature Granulocyte # (Auto) 0.0 0.0-0.1 10^3/uL Sodium Level 133 L 135-145 MMOL/L Potassium Level 4.1 3.6-5.0 MMOL/L Chloride Level 98 98-107 MMOL/L Carbon Dioxide Level 26 21-32 MMOL/L Anion Gap 9 5-14 MMOL/L Blood Urea Nitrogen 23 H 7-18 MG/DL Creatinine 1.02 0.60-1.30 MG/DL Estimat Glomerular Filtration Rate 99 BUN/Creatinine Ratio 23 Glucose Level 430 *H 70-105 MG/DL Calcium Level 9.3 8.5-10.1 MG/DL Corrected Calcium 9.5 8.5-10.1 MG/DL Phosphorus Level 3.7 2.3-4.7 MG/DL Magnesium Level 1.6 1.6-2.4 MG/DL Total Bilirubin 0.7 0.1-1.0 MG/DL Aspartate Amino Transf (AST/SGOT) 36 H 5-34 U/L Alanine Aminotransferase (ALT/SGPT) 46 0-55 U/L Alkaline Phosphatase 84 40-136 U/L Total Protein 6.4 6.4-8.2 GM/DL Albumin 3.8 3.2-4.5 GM/DL Lipase 8 8-78 U/L Urine Color YELLOW Urine Clarity CLEAR Urine pH 6.0 5-9 Urine Specific Evans 1.025 H 1.016-1.022 Urine Protein 2+ H NEGATIVE Urine Glucose (UA) 3+ H NEGATIVE Urine Ketones NEGATIVE NEGATIVE Urine Nitrite NEGATIVE NEGATIVE Urine Bilirubin NEGATIVE NEGATIVE Urine Urobilinogen 0.2 < = 1.0 MG/DL Urine Leukocyte Esterase NEGATIVE NEGATIVE Urine RBC (Auto) 2+ H NEGATIVE Urine RBC NONE /HPF Urine WBC NONE /HPF Urine Squamous Epithelial Cells NONE /HPF Urine Crystals NONE /LPF Urine Bacteria TRACE /HPF Urine Casts PRESENT /LPF Urine Hyaline Casts 0-2 H /LPF Urine Mucus NEGATIVE /LPF Urine Culture Indicated NO My Orders Orders - REBEKA MESA APRN Comprehensive Metabolic Panel (05/26/22 13:59) Lipase (05/26/22 13:59) Ua Culture If Indicated (05/26/22 13:59) Ed Iv/Invasive Line Start (05/26/22 13:59) Cbc With Automated Diff (05/26/22 13:59) Ed Iv/Invasive Line Start (05/26/22 13:59) Ns Iv 1000 Ml (Sodium Chloride 0.9%) (05/26/22 14:00) Ondansetron Injection (Zofran Injectio (05/26/22 14:00) Magnesium (05/26/22 13:59) Phosphorus (05/26/22 13:59) Insulin (Regular) Human (Novolin R (Per (05/26/22 14:00) Accucheck Stat ONCE (05/26/22 14:44) Medications Given in ED Current Medications Medications Dose Ordered Sig/Fer Route Start Time Stop Time Status Last Admin Dose Admin Insulin Human Regular 7 unit ONCE ONCE IV 05/26/22 14:00 05/26/22 14:05 DC 05/26/22 14:13 7 UNIT Ondansetron HCl 4 mg ONCE ONCE IVP 05/26/22 14:00 05/26/22 14:05 DC 05/26/22 14:13 4 MG Vital Signs/I&O 05/26/22 13:43 Temp 36.1 Pulse 97 Resp 18 B/P (MAP) 121/90 (100) Pulse Ox 97 O2 Delivery Room Air Capillary Refill : Less Than 3 Seconds Blood Pressure Mean: 100 Point of Care Testing Finger Stick Blood Glucose: 404 Blood Glucose Action Taken: NOTIFIED Progress Note #1: Time: 14:15 Progress Note Patient seen and evaluated, concerned for DKA. IV fluids, Zofran, insulin, CBC, CMP, lipase, magnesium level, phosphorus level, and urinalysis ordered. Patient has a history of substance abuse. Discussed with patient concern for potential relapse and drug use due to depression from the passing of his father. Patient states he has no desire to use drugs at this time. Patient reports that he has resources to help with his drug abuse. Progress Note #2: Time: 15:06 Progress Note Reassessed patient at this time. Patient reports he is feeling better. Discussed lab results with patient at this time. Discussed no signs of DKA per his lab results. Will recheck blood sugar, blood sugar has improved patient will be discharged. Patient agrees to plan. Discussed outpatient and with isiah donnelly. Patient said that he is going to set reminders on his phone to check his blood sugar and to take his insulin. Patient is also spoke with his mother and stepmother and they agree to check on him throughout the day to make sure he is staying on top of his diabetes. Patient states he goes to 2 weekly meetings for drug abuse. Reports he also goes to an NA meeting. Patient reports he has not been to these meetings since his father passed but states he is going to return to the meetings. Patient reports his drug counselor has been calling him today and checking on him. Patient states that he speaks with his drug counselor janis mcbride. Patient again states that he has no desire to use drugs and wants to stay sober. Progress Note #3: Time: 15:10 Progress Note Blood sugar 270. Patient is feeling better. Patient agreeable to be discharged home. Departure Impression Primary Impression: Hyperglycemia Additional Impression: Diabetes mellitus Disposition: 01 HOME, SELF-CARE Condition: Stable Departure-Patient Inst. Decision time for Depature: 15:11 Referrals: [facility] [place]) Primary Care Physician Patient Instructions: Diabetes and Diet, High Blood Sugar, Adult Add. Discharge Instructions: Follow-up with primary care provider. Set reminders in phone to remind yourself to check your blood sugar and take your insulin. Continue weekly meetings. Continue discussions with her counselor. Return for any new or concerning symptoms including uncontrolled vomiting, dehydration, or abdominal pain. All discharge instructions reviewed with patient and/or family. Voiced understanding. REBEKA MESA APRN May 26, 2022 14:13
[2022-05-26 14:30] LABS: BASOPHILS # (AUTO) 0.1 10^3/uL (0.0-0.1); BASOPHILS % (AUTO) 1 % (0-10); EOSINOPHILS # (AUTO) 0.1 10^3/uL (0.0-0.3); EOSINOPHILS % (AUTO) 3 % (0-10); HEMATOCRIT 37 % (40-54); HEMOGLOBIN 12.9 g/dL (13.3-17.7); LYMPHOCYTES # (AUTO) 1.9 10^3/uL (1.0-4.0); LYMPHOCYTES % (AUTO) 34 % (12-44); MEAN CORPUSCULAR HEMOGLOBIN 28 pg (25-34); MEAN CORPUSCULAR HGB CONC 35 g/dL (32-36); MEAN CORPUSCULAR VOLUME 81 fL (80-99); MEAN PLATELET VOLUME 9.1 fL (9.0-12.2); MONOCYTES # (AUTO) 0.4 10^3/uL (0.0-1.0); MONOCYTES % (AUTO) 7 % (0-12); NEUTROPHILS # (AUTO) 3.1 10^3/uL (1.8-7.8); NEUTROPHILS % (AUTO) 55 % (42-75); PLATELET COUNT 227 10^3/uL (130-400); WHITE BLOOD COUNT 5.7 10^3/uL (4.3-11.0)
[2022-05-26 14:35] LABS: BILIRUBIN,URINE NEGATIVE (NEGATIVE); CLARITY,URINE CLEAR; COLOR,URINE YELLOW; GLUCOSE, URINE (UA) 3+ (NEGATIVE); KETONES,URINE NEGATIVE (NEGATIVE); LEUKOCYTE ESTERASE ,URINE NEGATIVE (NEGATIVE); NITRITE,URINE NEGATIVE (NEGATIVE); PROTEIN,URINE 2+ (NEGATIVE)
[2022-05-26 14:41] LABS: ALBUMIN 3.8 GM/DL (3.2-4.5)
[2022-05-26 14:42] LABS: POTASSIUM 4.1 MMOL/L (3.6-5.0)
[2022-05-26 14:43] LABS: CALCIUM 9.3 MG/DL (8.5-10.1)
[2022-05-26 14:44] LABS: TOTAL PROTEIN 6.4 GM/DL (6.4-8.2)
[2022-05-26 14:46] LABS: BACTERIA,URINE TRACE /HPF; HYALINE CASTS, URINE 0-2 /LPF
[2022-05-26 14:46] LABS: BILIRUBIN,TOTAL 0.7 MG/DL (0.1-1.0)
[2022-05-26 14:48] LABS: CREATININE SERUM 1.02 MG/DL (0.60-1.30)
[2022-05-26 14:49] LABS: PHOSPHORUS 3.7 MG/DL (2.3-4.7)
[2022-05-26 14:51] LABS: MAGNESIUM 1.6 MG/DL (1.6-2.4)
[2022-05-26 15:20] VITALS: BP 127/84
== END 2022-05-26 15:20 | disposition home or self-care (01) ==
LOC: EDUNIT# 13:38 → ER 13:39
DX: E10.65 Type 1 diabetes mellitus with hyperglycemia (principal); F17.210 Nicotine dependence, cigarettes, uncomplicated; Z28.310 Unvaccinated for COVID-19; Z79.4 Long term (current) use of insulin
CPT/HCPCS: 36415; 80053; 81000; 82947; 83690; 83735; 84100; 85025

== ENCOUNTER 2022-07-10 12:26 | Emergency (ER) | payer SELFPAY ==
[2022-07-10] MEDS ORDERED: ONDANSETRON 4 MG (ZOFRAN) ORAL DISSOLVE TAB PO STA (12:47)
[2022-07-10] MEDS ORDERED: PROM25SU44 RC (13:35)
[2022-07-10] MEDS ORDERED: ONDA8TAB13 SL (13:35)
--- NOTE | 2022-07-10 13:35 | ED GI ---
General Chief Complaint: Abdominal/GI Problems Stated Complaint: VOMITING | CHILLS Nursing Triage Note: PT AMB TO RM 5 WITH C/O N/V SINCE THIS MORNING AND DRY HEAVING. PT STATES HE WAS SEEN AT [facility] AND THEY TRIED TO COVID AND FLU SWAB HIM BUT WERE NOT ABLE TO COMPLETE THE TEST. PT ALSO STATES HE HAS NOT CHECKED HIS BLOOD SUGAR TODAY Source of Information: Patient Exam Limitations: No Limitations History of Present Illness Date Seen by Provider: Jul 10, 2022 Time Seen by Provider: 12:40 Initial Comments Patient is a 37-year-old male who presents to the emergency department for evaluation of nausea and vomiting that began a few hours prior to arrival. States he was seen at a walk-in clinic and refused a COVID and flu test. He has a history of diabetes and states he has not checked his blood sugar today. Denies any abdominal pain or diarrhea. No known sick contacts in the recent past. Allergies and Home Medications Allergies Coded Allergies: tramadol (Verified Adverse Reaction, Mild, N/V, 12/21/14) Patient Home Medication List Home Medication List Reviewed: Yes Insulin Aspart (Novolog Flexpen) 300 Units/3 Ml Solution, 5-8 UNITS SQ AC, (Reported) Entered as Reported by: SAMRA MCCORD on 06/07/21 0935 Insulin Detemir (Levemir Flextouch) 100 Unit/1 Ml Insuln.pen, 45 UNIT SQ HS, (Reported) Entered as Reported by: SAMRA MCCORD on 08/02/21 1522 Metoclopramide HCl (Reglan) 10 Mg Tablet, 10 MG PO Q6H PRN for nausea Prescribed by: JG VILLAVICENCIO on 04/07/22 1422 Ondansetron (Ondansetron Odt) 8 Mg Tab.rapdis, 8 MG SL Q6H PRN for NAUSEA/VOMITING Prescribed by: Chapo Crews on 07/10/22 1335 Ondansetron (Ondansetron Odt) 4 Mg Tab.rapdis, 4 MG SL Q6H PRN for NAUSEA/VOMITING Prescribed by: NEVIN SAGASTUME on 07/11/22 1128 Pantoprazole Sodium (Pantoprazole Sodium) 40 Mg Tablet.dr, 40 MG PO DAILY, (Reported) Entered as Reported by: SAMRA MCCORD on 06/07/21 0935 Promethazine HCl (Promethazine Suppository) 25 Mg Supp.rect, 25 MG RC Q8H Prescribed by: Chapo Crews on 07/10/22 1335 Sucralfate (Carafate) 1 Gm Tablet, 1 GM PO ACHS, (Reported) Entered as Reported by: SAMRA MCCORD on 06/07/21 0935 Review of Systems Review of Systems Constitutional: no symptoms reported EENTM: No Symptoms Reported Respiratory: No Symptoms Reported Cardiovascular: No Symptoms Reported Gastrointestinal: See HPI, Nausea, Vomiting Genitourinary: No Symptoms Reported Musculoskeletal: no symptoms reported Skin: no symptoms reported Psychiatric/Neurological: No Symptoms Reported Endocrine: No Symptoms Reported Hematologic/Lymphatic: No Symptoms Reported Past Aiqlmqg-Qwnvrf-Mnoqbf Hx Patient Social History Tobacco Use?: No Substance use?: Yes Substance type: Marijuana Alcohol Use?: No Pt feels they are or have been: No Immunizations Up To Date Tetanus Booster (TDap): Unknown Influenza Vaccine Up-to-Date: Yes; Up-to-Date First/Initial COVID19 Vaccinat: 2020 Second COVID19 Vaccination Kumar: 2020 Third COVID19 Vaccination Date: UNK Seasonal Allergies Seasonal Allergies: No Past Medical History Surgery/Hospitalization HX: GALLBLADDER, DM Surgeries: Yes Abdominal, Gallbladder Respiratory: Yes (copd dx by patient) COPD Currently Using CPAP: No Currently Using BIPAP: No Cardiac: Yes Hypertension Neurological: Yes Neuropathy Reproductive Disorders: No Sexually Transmitted Disease: No HIV/AIDS: No Genitourinary: Yes Kidney Infection Gastrointestinal: Yes (ELEVATED LIVER ENZYMES, Hep A; CANNIBIS HYPEREMESIS; ) Gastroesophageal Reflux, Liver Disease/Jaundice, Esophagitis Musculoskeletal: Yes Arthritis, Scoliosis, Chronic Back Pain Endocrine: Yes (Type I) Diabetes, Insulin dep HEENT: No Hearing Impairment: Denies Cancer: No Psychosocial: Yes (POLYSUBSTANCE ABUSE) Depression Integumentary: No Blood Disorders: No Adverse Reaction/Blood Tranf: No Family Medical History Alcoholism 19 FATHER G8 BROTHER Congenital heart disease 19 FATHER Family history: Cardiovascular disease 19 FATHER, Onset:40's - 50 Family history: Diabetes mellitus 19 MOTHER Family history: Hypertension 19 FATHER Heart disease 19 FATHER History of - respiratory disease 19 FATHER History of drug abuse 19 MOTHER Hypercholesterolemia 19 FATHER Myocardial infarction 19 FATHER Seizure disorder 19 FATHER No Family History of: Abdominal aortic aneurysm Markos's disease Cancer Congestive heart failure Cystic fibrosis Dementia Dysphagia Family history: Allergy Family history: Alzheimer's disease Family history: Arthritis Family history: Asthma Family history: Breast disease Family history: Coronary thrombosis Family history: Gastrointestinal disease Family history: Glaucoma Family history: Osteoporosis Family history: Thyroid disorder Headache Hearing loss Hereditary disease History of - anemia History of - disorder Human immunodeficiency virus (HIV) seropositivity Infertile Kidney disease Malignant neoplasm of lung Parkinson's disease Prostate cancer Psychotic disorder Stroke Tuberculosis Visual impairment Heart Disease, Diabetes, Hypertension SOCIAL HISTORY: -SMOKES 1 PPD -History of DRUGS--+ IV METH USE, COCAINE USE, THC, RX DRUGS--ESPECIALLY HYDROCODONE AND ADDERALL -History of ETOH--HEAVY REGULAR/DAILY USE Physical Exam Vital Signs Vital Signs - First Documented 07/10/22 12:37 Temp 36.5 Pulse 54 Resp 20 B/P (MAP) 168/92 (117) Capillary Refill : Height/Weight/BMI Height: 5'10.00" Weight: 240lbs. 0oz. [id number]; 25.00 BMI Method:Stated General Appearance: WD/WN, no apparent distress HEENT: PERRL/EOMI, normal ENT inspection, TMs normal, pharynx normal Neck: non-tender, full range of motion, supple, normal inspection Respiratory: chest non-tender, lungs clear, normal breath sounds, no respiratory distress, no accessory muscle use Cardiovascular: regular rate, rhythm Gastrointestinal: normal bowel sounds, non tender, soft Neurologic/Psychiatric: no motor/sensory deficits, alert, normal mood/affect, oriented x 3 Skin: normal color, warm/dry Progress/Results/Core Measures Results/Orders Lab Results Laboratory Tests Test 07/10/22 12:47 07/10/22 12:58 Range/Units Glucometer 207 H 70-110 MG/DL Influenza Type A (RT-PCR) Not Detected Not Detecte Influenza Type B (RT-PCR) Not Detected Not Detecte SARS-CoV-2 RNA (RT-PCR) Not Detected Not Detecte My Orders Orders - CHAPO CREWS APRN Ondansetron Oral Dissolve Tab (Zofran (07/10/22 12:47) Accucheck Stat ONCE (07/10/22 12:47) Covid 19 Inhouse Test (07/10/22 12:49) Influenza A And B By Pcr (07/10/22 12:49) Isolation Central Supply Req (07/10/22 12:49) Promethazine Tablet (Phenergan Tablet) (07/10/22 13:45) Vital Signs/I&O 07/10/22 07/10/22 12:37 13:58 Temp 36.5 36.5 Pulse 54 54 Resp 20 20 B/P (MAP) 168/92 (117) 168/92 Blood Pressure Mean: 117 [facility]SB[facility] Bedside Testing Finger Stick Blood Glucose: 207 Blood Glucose Action Taken: PAULINO NOTIFIED Progress Progress Note : Progress Note Patient is nontoxic and well-hydrated on exam. Abdominal exam is reassuring without focal provocation of pain or rigidity/distention. Patient's blood glucose is 207. Patient is not Kooser melena does not appear to be in DKA clinically. Patient was given an ODT Zofran. COVID and flu test were obtained. These were both negative. Patient was also given a dose of Phenergan. Patient has been retching in the ER but has not actually had any emesis. Patient will be discharged home with prescriptions for ODT Zofran and Phenergan suppositories. Follow-up with PCP. Return precautions for urgent symptomology discussed. Patient verbalized understanding. Departure Impression Primary Impression: Nausea and vomiting Qualified Codes: R11.2 - Nausea with vomiting, unspecified Disposition: 01 HOME, SELF-CARE Condition: Stable Departure-Patient Inst. Decision time for Depature: 13:35 Referrals: [facility] [place] (PCP/Family) Primary Care Physician Patient Instructions: Nausea and Vomiting, Adult ED Scripts Promethazine HCl (Promethazine Suppository) 25 Mg Supp.rect 25 MG RC Q8H for Nausea/Vomiting for 3 Days, #9 SUPP.RECT 0 Refills Prov: CHAPO CREWS APRN 07/10/22 Ondansetron (Ondansetron Odt) 8 Mg Tab.rapdis 8 MG SL Q6H PRN for NAUSEA/VOMITING for 3 Days, #12 TAB 0 Refills Prov: CHAPO CREWS APRN 07/10/22 CHAPO CREWS APRN Jul 10, 2022 13:35
[2022-07-10] MEDS ORDERED: PROMETHAZINE 25 MG (PHENERGAN) TAB PO ONE (13:45)
[2022-07-10 13:58] VITALS: BP 168/92
[2022-07-11] MEDS ORDERED: ONDA4TAB11 SL (11:28)
== END 2022-07-10 14:20 | disposition home or self-care (01) ==
LOC: EDUNIT# 12:26 → ER 12:27
DX: R11.2 Nausea with vomiting, unspecified (principal); E10.65 Type 1 diabetes mellitus with hyperglycemia; F17.210 Nicotine dependence, cigarettes, uncomplicated; Z20.822 Contact with and (suspected) exposure to COVID-19
CPT/HCPCS: 82947; 87636

== ENCOUNTER 2022-07-11 08:35 | Emergency (ER) | payer SELFPAY ==
[~2022-07-11] VITALS: Ht 175 cm; Wt 84.0 kg
[~2022-07-11 08:35] MED LIST changes: +ONDA8TAB13 SL; +PROM25SU44 RC
[2022-07-11] MEDS ORDERED: LACTATED RINGERS 1,000 ML IV STA ×2 (08:53→09:45)
[2022-07-11] MEDS ORDERED: ONDANSETRON 4 MG/2 ML (SDV) Z0FRAN IVP ONE (09:00)
--- NOTE | 2022-07-11 09:04 | ED General ---
General Chief Complaint: Glucose Problems Stated Complaint: VOMITING Nursing Triage Note: PT AMB TO RM 5 PT CO OF ELEVATED BLOOD SUGAR. STATES WAS 399 THIS AM AT 0400. PT HAS BEEN VOMITING AND WEAKNESS. PT HAS BEEN SICK FOR 2DAYS. PT WAS SEEN IN ED YESTERDAY. TESTED NEG FOR COVID AND FLU Source of Information: Patient Exam Limitations: No Limitations History of Present Illness Date Seen by Provider: Jul 11, 2022 Time Seen by Provider: 08:41 Initial Comments 37-year-old male with past medical history of insulin-dependent diabetes, polysubstance use disorder, medication noncompliance coming in due to going on 2 days of nonbloody nonbilious vomiting, general weakness. He was seen in the e mergency department yesterday, flu and COVID testing were negative and his glucose was in the 200s. Discharged home feeling better. He did not take his long-acting insulin last night for unknown reasons. Woke up with a sugar in the high 300s this morning. He called EMS and gave himself 8 units of insulin. He since then gave himself another 8 units of short acting insulin and total. Otherwise denies fever, chills, diarrhea, chest pain, SOB, abd pain, focal weakness, numbness, headache, or any other concerns. He states he smokes marijuana daily. Allergies and Home Medications Allergies Coded Allergies: tramadol (Verified Adverse Reaction, Mild, N/V, 12/21/14) Patient Home Medication List Home Medication List Reviewed: Yes Insulin Aspart (Novolog Flexpen) 300 Units/3 Ml Solution, 5-8 UNITS SQ AC, (Reported) Entered as Reported by: SAMRA MCCORD on 06/07/21 0935 Insulin Detemir (Levemir Flextouch) 100 Unit/1 Ml Insuln.pen, 45 UNIT SQ HS, (Reported) Entered as Reported by: SAMRA MCCORD on 08/02/21 1522 Metoclopramide HCl (Reglan) 10 Mg Tablet, 10 MG PO Q6H PRN for nausea Prescribed by: JG VILLAVICENCIO on 04/07/22 1422 Ondansetron (Ondansetron Odt) 8 Mg Tab.rapdis, 8 MG SL Q6H PRN for NAUSEA/VOMITING Prescribed by: Chapo Crews on 07/10/22 1335 Pantoprazole Sodium (Pantoprazole Sodium) 40 Mg Tablet.dr, 40 MG PO DAILY, (Reported) Entered as Reported by: SAMRA MCCORD on 06/07/21 09 Promethazine HCl (Promethazine Suppository) 25 Mg Supp.rect, 25 MG RC Q8H Prescribed by: Chapo Crews on 07/10/22 1335 Sucralfate (Carafate) 1 Gm Tablet, 1 GM PO ACHS, (Reported) Entered as Reported by: SAMRA MCCORD on 06/07/21 09 Review of Systems Review of Systems Constitutional: No fever EENTM: no symptoms reported Respiratory: no symptoms reported Cardiovascular: no symptoms reported Gastrointestinal: see HPI Genitourinary: no symptoms reported Musculoskeletal: no symptoms reported Skin: no symptoms reported Psychiatric/Neurological: No Symptoms Reported Hematologic/Lymphatic: No Symptoms Reported Immunological/Allergic: no symptoms reported All Other Systems Reviewed Negative Unless Noted: Yes Past Vfjgumo-Trqbqf-Sacxrs Hx Patient Social History Tobacco Use?: No Substance use?: Yes Substance type: Marijuana Substance frequency: Couple times a week Alcohol Use?: No Pt feels they are or have been: No Immunizations Up To Date Tetanus Booster (TDap): Unknown Influenza Vaccine Up-to-Date: Yes; Up-to-Date First/Initial COVID19 Vaccinat: 2020 Second COVID19 Vaccination Kumar: 2020 Third COVID19 Vaccination Date: Seasonal Allergies Seasonal Allergies: No Past Medical History Surgery/Hospitalization HX: GALLBLADDER, DM Surgeries: Yes Abdominal, Gallbladder Respiratory: Yes (copd dx by patient) COPD Currently Using CPAP: No Currently Using BIPAP: No Cardiac: Yes Hypertension Neurological: Yes Neuropathy Reproductive Disorders: No Sexually Transmitted Disease: No HIV/AIDS: No Genitourinary: Yes Kidney Infection Gastrointestinal: Yes (ELEVATED LIVER ENZYMES, Hep A; CANNIBIS HYPEREMESIS; ) Gastroesophageal Reflux, Liver Disease/Jaundice, Esophagitis Musculoskeletal: Yes Arthritis, Scoliosis, Chronic Back Pain Endocrine: Yes (Type I) Diabetes, Insulin dep HEENT: No Hearing Impairment: Denies Cancer: No Psychosocial: Yes (POLYSUBSTANCE ABUSE) Depression Integumentary: No Blood Disorders: No Adverse Reaction/Blood Tranf: No Family Medical History Alcoholism 19 FATHER G8 BROTHER Congenital heart disease 19 FATHER Family history: Cardiovascular disease 19 FATHER, Onset:40's - 50 Family history: Diabetes mellitus 19 MOTHER Family history: Hypertension 19 FATHER Heart disease 19 FATHER History of - respiratory disease 19 FATHER History of drug abuse 19 MOTHER Hypercholesterolemia 19 FATHER Myocardial infarction 19 FATHER Seizure disorder 19 FATHER No Family History of: Abdominal aortic aneurysm Ponce's disease Cancer Congestive heart failure Cystic fibrosis Dementia Dysphagia Family history: Allergy Family history: Alzheimer's disease Family history: Arthritis Family history: Asthma Family history: Breast disease Family history: Coronary thrombosis Family history: Gastrointestinal disease Family history: Glaucoma Family history: Osteoporosis Family history: Thyroid disorder Headache Hearing loss Hereditary disease History of - anemia History of - disorder Human immunodeficiency virus (HIV) seropositivity Infertile Kidney disease Malignant neoplasm of lung Parkinson's disease Prostate cancer Psychotic disorder Stroke Tuberculosis Visual impairment Heart Disease, Diabetes, Hypertension SOCIAL HISTORY: -SMOKES 1 PPD -History of DRUGS--+ IV METH USE, COCAINE USE, THC, RX DRUGS--ESPECIALLY HYDROCODONE AND ADDERALL -History of ETOH--HEAVY REGULAR/DAILY USE Physical Exam Vital Signs Vital Signs - First Documented 07/11/22 08:40 Temp 36.8 Pulse 89 Resp 20 B/P (MAP) 181/102 (128) Pulse Ox 99 Capillary Refill : Less Than 3 Seconds Height, Weight, BMI Height: 5'10.00" Weight: 240lbs. 0oz. [id number]; 27.00 BMI Method:Stated General Appearance: Other (Planing of her backaches but not in apparent distress) Eyes: Bilateral Eye Normal Inspection HEENT: PERRL/EOMI, Normal ENT Inspection, Pharynx Normal Neck: Full Range of Motion, Normal Inspection, Non Tender, Supple Respiratory: Chest Non Tender, Lungs Clear, Normal Breath Sounds, No Accessory Muscle Use, No Respiratory Distress Cardiovascular: Regular Rate, Rhythm, No Edema, Normal Peripheral Pulses Gastrointestinal: Normal Bowel Sounds, Non Tender, Soft; No Distended, No Guarding Back: Normal Inspection, No CVA Tenderness Extremity: Normal Capillary Refill, Normal Inspection, Normal Range of Motion, Non Tender, No Calf Tenderness Neurologic/Psychiatric: Alert, No Motor/Sensory Deficits, Normal Mood/Affect Skin: Normal Color, Warm/Dry Lymphatic: No Adenopathy Progress/Results/Core Measures Suspected Sepsis SIRS Temperature: Pulse: 89 Respiratory Rate: 20 Laboratory Tests 07/11/22 08:50: White Blood Count 13.4H Blood Pressure 181 /102 Mean: 128 Laboratory Tests 07/11/22 08:50: Creatinine 1.13, Platelet Count 279, Total Bilirubin 1.5H 07/11/22 10:50: Creatinine 0.88 Results/Orders Lab Results Laboratory Tests Test 07/11/22 08:50 07/11/22 08:53 07/11/22 09:29 07/11/22 10:50 Range/Units White Blood Count 13.4 H 4.3-11.0 10^3/uL Red Blood Count 5.05 4.30-5.52 10^6/uL Hemoglobin 14.5 13.3-17.7 g/dL Hematocrit 42 40-54 % Mean Corpuscular Volume 82 80-99 fL Mean Corpuscular Hemoglobin 29 25-34 pg Mean Corpuscular Hemoglobin Concent 35 32-36 g/dL Red Cell Distribution Width 12.2 10.0-14.5 % Platelet Count 279 130-400 10^3/uL Mean Platelet Volume 9.5 9.0-12.2 fL Immature Granulocyte % (Auto) 0 % Neutrophils (%) (Auto) 80 H 42-75 % Lymphocytes (%) (Auto) 14 12-44 % Monocytes (%) (Auto) 6 0-12 % Eosinophils (%) (Auto) 0 0-10 % Basophils (%) (Auto) 0 0-10 % Neutrophils # (Auto) 10.7 H 1.8-7.8 10^3/uL Lymphocytes # (Auto) 1.9 1.0-4.0 10^3/uL Monocytes # (Auto) 0.8 0.0-1.0 10^3/uL Eosinophils # (Auto) 0.0 0.0-0.3 10^3/uL Basophils # (Auto) 0.1 0.0-0.1 10^3/uL Immature Granulocyte # (Auto) 0.0 0.0-0.1 10^3/uL Sodium Level 133 L 133 L 135-145 MMOL/L Potassium Level 3.9 3.8 3.6-5.0 MMOL/L Chloride Level 97 L 100 98-107 MMOL/L Carbon Dioxide Level 20 L 23 21-32 MMOL/L Anion Gap 16 H 10 5-14 MMOL/L Blood Urea Nitrogen 30 H 7-18 MG/DL Creatinine 1.13 0.88 0.60-1.30 MG/DL Estimat Glomerular Filtration Rate 87 115 BUN/Creatinine Ratio 27 Glucose Level 383 H 310 H 70-105 MG/DL Calcium Level 9.8 8.8 8.5-10.1 MG/DL Corrected Calcium 8.5-10.1 MG/DL Magnesium Level 1.6 1.6-2.4 MG/DL Total Bilirubin 1.5 H 0.1-1.0 MG/DL Aspartate Amino Transf (AST/SGOT) 20 5-34 U/L Alanine Aminotransferase (ALT/SGPT) 40 0-55 U/L Alkaline Phosphatase 87 40-136 U/L Total Protein 7.8 6.4-8.2 GM/DL Albumin 4.6 H 3.2-4.5 GM/DL Lipase 5 L 8-78 U/L Beta-Hydroxybutyrate (Chem panel) 3.12 H 0.00-0.27 MMOL/L Glucometer 401 *H 70-110 MG/DL Venous Blood pH 7.35 7.31-7.41 Venous Blood Partial Pressure CO2 40 40-52 MMHG Venous Blood HCO3 22 22-28 MMOL/L My Orders Orders - NEVIN SAGASTUME MD Cbc With Automated Diff (07/11/22 08:53) Comprehensive Metabolic Panel (07/11/22 08:53) Lipase (07/11/22 08:53) Magnesium (07/11/22 08:53) Ua Culture If Indicated (07/11/22 08:53) Venous Blood Gas (07/11/22 08:53) Beta Hydroxybutyrate (07/11/22 08:53) Lactated Ringers (Lr 1000 Ml Iv Solution (07/11/22 08:53) Accucheck Stat ONCE (07/11/22 08:53) Ed Iv/Invasive Line Start (07/11/22 08:53) Ondansetron Injection (Zofran Injectio (07/11/22 09:00) Insulin Determir (Per Unit) (Levemir (Pe (07/11/22 09:00) Potassium Chloride (Tablet) (K Dur Table (07/11/22 09:45) Potassium Cl 10meq/50ml Ivpb (Kcl 10 Meq (07/11/22 09:45) Insulin (Regular) Human (Novolin R (Per (07/11/22 09:45) Lactated Ringers (Lr 1000 Ml Iv Solution (07/11/22 09:45) Basic Metabolic Panel (07/11/22 10:40) Medications Given in ED Current Medications Medications Dose Ordered Sig/Fer Route Start Time Stop Time Status Last Admin Dose Admin Insulin Detemir 45 unit ONCE ONCE SQ 07/11/22 09:00 07/11/22 09:02 DC 07/11/22 09:13 45 UNIT Insulin Human Regular 10 unit ONCE ONCE IV 07/11/22 09:45 07/11/22 09:49 DC 07/11/22 10:06 10 UNIT Ondansetron HCl 4 mg ONCE ONCE IVP 07/11/22 09:00 07/11/22 09:01 DC 07/11/22 09:13 4 MG Potassium Chloride 20 meq ONCE ONCE PO 07/11/22 09:45 07/11/22 09:49 DC 07/11/22 10:07 20 MEQ Vital Signs/I&O 07/11/22 08:40 Temp 36.8 Pulse 89 Resp 20 B/P (MAP) 181/102 (128) Pulse Ox 99 Capillary Refill : Less Than 3 Seconds Blood Pressure Mean: 128 Point of Care Testing Finger Stick Blood Glucose: 401 Blood Glucose Action Taken: REPORTED TO DR Grubbs Note : Progress Note 37-year-old male with above history coming in due to vomiting and elevated blood sugar. ABCs were intact and vitals were stable on presentation. Physical exam with a soft and nontender abdomen with him being alert and oriented. An IV was placed and basic labs were obtained. These were significant for a pH of 7.35 which is low normal, bicarb of 20 just barely low, anion gap of 16 slightly elevated, beta hydroxybutyrate elevated all consistent with him being in aleksey- DKA versus very mild DKA. He did not take his long-acting insulin yesterday which is likely the cause of this. He was given IV fluids, oral potassium, IV potassium, IV insulin bolus with repeat BMP showing he has closed his anion gap with normal bicarb meaning he is no longer in DKA. After Zofran his symptoms completely resolved and he was resting comfortably. He was able to tolerate the p.o. potassium with water and has not been vomiting. I gave him his long-acting insulin. I believe he is otherwise stable for discharge with outpatient follow- up. He was sent home with strict return precautions. Departure Impression Primary Impression: DKA (diabetic ketoacidosis) Qualified Codes: E11.10 - Type 2 diabetes mellitus with ketoacidosis without coma Disposition: HOME, SELF-CARE Condition: Improved Departure-Patient Inst. Decision time for Depature: 11:27 Referrals: [facility] (PCP/Family) Primary Care Physician Patient Instructions: High Blood Sugar, Adult Add. Discharge Instructions: You were in very mild DKA which has already corrected itself with the IV fluids and insulin we gave you. Nausea medicines were sent to your pharmacy as needed. You did receive your long-acting insulin from us so you can either switch your timing to taking it in the morning or try to lengthen the time in between until you are taking it again at nighttime. For instance, you received it around 10 AM today, you could take it at noon tomorrow, 2 PM the next day, 4 PM the next day, etc. until you are taking it again at nighttime. Do not take another dose tonight however as that would be too much for you. Be sure to take your glucose several times today and continue to give herself insulin as needed. Follow-up with your regular doctor if you have any other concerns. Scripts Ondansetron (Ondansetron Odt) 4 Mg Tab.rapdis 4 MG SL Q6H PRN for NAUSEA/VOMITING for 5 Days, #20 TAB Prov: NEVIN SAGASTUME MD 07/11/22 Work/School Note: Work Release Form Date Seen in the Emergency Department: Jul 11, 2022 Return to Work: Jul 12, 2022 Restrictions: Return-No Vomiting(24hrs) NEVIN SAGASTUME MD Jul 11, 2022 09:03
[2022-07-11 09:06] LABS: BASOPHILS # (AUTO) 0.1 10^3/uL (0.0-0.1); BASOPHILS % (AUTO) 0 % (0-10); EOSINOPHILS % (AUTO) 0 % (0-10); HEMATOCRIT 42 % (40-54); HEMOGLOBIN 14.5 g/dL (13.3-17.7); LYMPHOCYTES # (AUTO) 1.9 10^3/uL (1.0-4.0); LYMPHOCYTES % (AUTO) 14 % (12-44); MEAN CORPUSCULAR HEMOGLOBIN 29 pg (25-34); MEAN CORPUSCULAR HGB CONC 35 g/dL (32-36); MEAN CORPUSCULAR VOLUME 82 fL (80-99); MEAN PLATELET VOLUME 9.5 fL (9.0-12.2); MONOCYTES # (AUTO) 0.8 10^3/uL (0.0-1.0); MONOCYTES % (AUTO) 6 % (0-12); NEUTROPHILS # (AUTO) 10.7 10^3/uL (1.8-7.8); NEUTROPHILS % (AUTO) 80 % (42-75); PLATELET COUNT 279 10^3/uL (130-400); WHITE BLOOD COUNT 13.4 10^3/uL (4.3-11.0)
[2022-07-11 09:35] LABS: ALBUMIN 4.6 GM/DL (3.2-4.5); CHLORIDE 97 MMOL/L (98-107); POTASSIUM 3.9 MMOL/L (3.6-5.0); SODIUM 133 MMOL/L (135-145)
[2022-07-11 09:37] LABS: CALCIUM 9.8 MG/DL (8.5-10.1)
[2022-07-11 09:38] LABS: GLUCOSE 383 MG/DL (70-105); TOTAL PROTEIN 7.8 GM/DL (6.4-8.2)
[2022-07-11 09:39] LABS: CARBON DIOXIDE 20 MMOL/L (21-32)
[2022-07-11 09:40] LABS: BILIRUBIN,TOTAL 1.5 MG/DL (0.1-1.0)
[2022-07-11 09:41] LABS: ALKALINE PHOSPHATASE 87 U/L (40-136); CREATININE SERUM 1.13 MG/DL (0.60-1.30); GFR ESTIMATED 87
[2022-07-11 09:42] LABS: BUN/CREATININE RATIO 27
[2022-07-11 09:44] LABS: ALANINE AMINOTRANSFERASE 40 U/L (0-55); MAGNESIUM 1.6 MG/DL (1.6-2.4)
[2022-07-11 09:45] LABS: LIPASE 5 U/L (8-78)
[2022-07-11] MEDS ORDERED: inSUlin (REGULAR) HUMAN 1 UNIT/0.01 ML (CHARGE PER UNIT) IV ONE (09:45)
[2022-07-11] MEDS ORDERED: POTASSIUM CL 10MEQ/50ML IVPB 50 ML IV STA (09:45)
[2022-07-11] MEDS ORDERED: KCL 20 MEQ TAB (K-DUR) PO ONE (09:45)
[2022-07-11 11:18] LABS: POTASSIUM 3.8 MMOL/L (3.6-5.0)
[2022-07-11 11:19] LABS: CALCIUM 8.8 MG/DL (8.5-10.1)
[2022-07-11 11:24] LABS: CREATININE SERUM 0.88 MG/DL (0.60-1.30)
[2022-07-11] MEDS ORDERED: ONDA4TAB11 SL (11:28)
[2022-07-11] MEDS ORDERED: PROMETHAZINE INJ 25 MG/ML (PHENERGAN) AMP IVP ONE (11:30)
[2022-07-11] MEDS ORDERED: PROMETHAZINE INJ 25 MG/ML (PHENERGAN) AMP ONE (11:32)
[2022-07-11 11:34] VITALS: BP 121/76
== END 2022-07-11 11:42 | disposition home or self-care (01) ==
LOC: EDUNIT# 08:35 → ER 08:37
DX: E10.10 Type 1 diabetes mellitus with ketoacidosis without coma (principal); F17.210 Nicotine dependence, cigarettes, uncomplicated
CPT/HCPCS: 36415; 80048; 80053; 82010; 82805; 82947; 83690; 83735; 85025

== ENCOUNTER 2022-07-12 13:22 | Emergency (ER) | payer SELFPAY ==
[~2022-07-12] VITALS: Ht 175.3 cm; Wt 83.9 kg
[2022-07-12] MEDS ORDERED: ONDANSETRON 4 MG/2 ML (SDV) Z0FRAN IVP ONE ×2 (14:00→15:45)
[2022-07-12] MEDS ORDERED: LACTATED RINGERS 1,000 ML IV SCH ×2 (14:00→15:30)
--- NOTE | 2022-07-12 14:08 | ED GI ---
General Chief Complaint: Abdominal/GI Problems Stated Complaint: VOMITING Nursing Triage Note: PT AMB TO RM 6 WITH COMPLAINT OF VOMITING. STATES HES BEEN VOMITING FOR THE LAST 3 DAYS. Source of Information: Patient Exam Limitations: No Limitations History of Present Illness Date Seen by Provider: Jul 12, 2022 Time Seen by Provider: 13:30 Initial Comments Patient is a 37-year-old male who presents to the emergency department for nausea and vomiting. He was seen in this ER on Sunday as well as yesterday for similar symptoms. Patient has a history of diabetes. Yesterday he was noted to be in early DKA which was corrected after IV fluids and a dose of IV insulin. Patient did not take his long-acting insulin yesterday and states he did not take it today. When asked why he did not take it he states he just woke up and felt bad so he came to the ER. Is currently using marijuana daily. States he has not checked his blood sugar today. He has not taken any of his short acting insulin either. States he has taken his prescribed antiemetics. States after he left the ER yesterday he felt much better and did not have any other nausea and vomiting until he woke up today. Allergies and Home Medications Allergies Coded Allergies: tramadol (Verified Adverse Reaction, Mild, N/V, 12/21/14) Patient Home Medication List Home Medication List Reviewed: Yes Insulin Aspart (Novolog Flexpen) 300 Units/3 Ml Solution, 5-8 UNITS SQ AC, (Reported) Entered as Reported by: SAMRA MCCORD on 06/07/21 0935 Insulin Detemir (Levemir Flextouch) 100 Unit/1 Ml Insuln.pen, 45 UNIT SQ HS, (Reported) Entered as Reported by: SAMRA MCCORD on 08/02/21 1522 Metoclopramide HCl (Reglan) 10 Mg Tablet, 10 MG PO Q6H PRN for nausea Prescribed by: JG VILLAVICENCIO on 04/07/22 1422 Ondansetron (Ondansetron Odt) 8 Mg Tab.rapdis, 8 MG SL Q6H PRN for NAUSEA/VOMITING Prescribed by: Chapo Crews on 07/10/22 1335 Ondansetron (Ondansetron Odt) 4 Mg Tab.rapdis, 4 MG SL Q6H PRN for NAUSEA/VOMITING Prescribed by: NEVIN SAGASTUME on 07/11/22 1128 Pantoprazole Sodium (Pantoprazole Sodium) 40 Mg Tablet.dr, 40 MG PO DAILY, (Reported) Entered as Reported by: SAMRA MCCORD on 06/07/21 09 Promethazine HCl (Promethazine Suppository) 25 Mg Supp.rect, 25 MG RC Q8H Prescribed by: Chapo Crews on 07/10/22 1335 Sucralfate (Carafate) 1 Gm Tablet, 1 GM PO ACHS, (Reported) Entered as Reported by: SAMRA MCCORD on 06/07/21 0935 Review of Systems Review of Systems Constitutional: no symptoms reported EENTM: No Symptoms Reported Respiratory: No Symptoms Reported Cardiovascular: No Symptoms Reported Gastrointestinal: See HPI, Nausea, Vomiting Genitourinary: No Symptoms Reported Musculoskeletal: no symptoms reported Skin: no symptoms reported Psychiatric/Neurological: No Symptoms Reported Endocrine: No Symptoms Reported Hematologic/Lymphatic: No Symptoms Reported Past Bnljlod-Huumfi-Ojjxov Hx Patient Social History Tobacco Use?: No Use of E-Cig and/or Vaping dev: No Substance use?: Yes Substance type: Marijuana Alcohol Use?: No Pt feels they are or have been: No Immunizations Up To Date Tetanus Booster (TDap): Unknown First/Initial COVID19 Vaccinat: 2020 Second COVID19 Vaccination Kumar: 2020 Third COVID19 Vaccination Date: Seasonal Allergies Seasonal Allergies: No Past Medical History Surgery/Hospitalization HX: GALLBLADDER, DM Surgeries: Yes Abdominal, Gallbladder Respiratory: Yes (copd dx by patient) COPD Currently Using CPAP: No Currently Using BIPAP: No Cardiac: Yes Hypertension Neurological: Yes Neuropathy Reproductive Disorders: No Sexually Transmitted Disease: No HIV/AIDS: No Genitourinary: Yes Kidney Infection Gastrointestinal: Yes (ELEVATED LIVER ENZYMES, Hep A; CANNIBIS HYPEREMESIS; ) Gastroesophageal Reflux, Liver Disease/Jaundice, Esophagitis Musculoskeletal: Yes Arthritis, Scoliosis, Chronic Back Pain Endocrine: Yes (Type I) Diabetes, Insulin dep HEENT: No Hearing Impairment: Denies Cancer: No Psychosocial: Yes (POLYSUBSTANCE ABUSE) Depression Integumentary: No Blood Disorders: No Adverse Reaction/Blood Tranf: No Family Medical History Alcoholism 19 FATHER G8 BROTHER Congenital heart disease 19 FATHER Family history: Cardiovascular disease 19 FATHER, Onset:40's - 50 Family history: Diabetes mellitus 19 MOTHER Family history: Hypertension 19 FATHER Heart disease 19 FATHER History of - respiratory disease 19 FATHER History of drug abuse 19 MOTHER Hypercholesterolemia 19 FATHER Myocardial infarction 19 FATHER Seizure disorder 19 FATHER No Family History of: Abdominal aortic aneurysm Cassia's disease Cancer Congestive heart failure Cystic fibrosis Dementia Dysphagia Family history: Allergy Family history: Alzheimer's disease Family history: Arthritis Family history: Asthma Family history: Breast disease Family history: Coronary thrombosis Family history: Gastrointestinal disease Family history: Glaucoma Family history: Osteoporosis Family history: Thyroid disorder Headache Hearing loss Hereditary disease History of - anemia History of - disorder Human immunodeficiency virus (HIV) seropositivity Infertile Kidney disease Malignant neoplasm of lung Parkinson's disease Prostate cancer Psychotic disorder Stroke Tuberculosis Visual impairment Heart Disease, Diabetes, Hypertension SOCIAL HISTORY: -SMOKES 1 PPD -History of DRUGS--+ IV METH USE, COCAINE USE, THC, RX DRUGS--ESPECIALLY HYDROCODONE AND ADDERALL -History of ETOH--HEAVY REGULAR/DAILY USE Physical Exam Vital Signs Vital Signs - First Documented 07/12/22 13:28 Temp 37.0 Pulse 59 Resp 20 B/P (MAP) 168/93 (118) Pulse Ox 100 O2 Delivery Room Air Capillary Refill : Less Than 3 Seconds Height/Weight/BMI Height: 5'10.00" Weight: 240lbs. 0oz. 108.738643rg; 27.00 BMI Method:Stated General Appearance: WD/WN, no apparent distress HEENT: PERRL/EOMI, normal ENT inspection, TMs normal, pharynx normal Neck: non-tender, full range of motion, supple, normal inspection Respiratory: chest non-tender, lungs clear, normal breath sounds, no resp iratory distress, no accessory muscle use Cardiovascular: regular rate, rhythm Gastrointestinal: normal bowel sounds, non tender, soft Extremities: normal range of motion, non-tender, normal inspection, no pedal edema, no calf tenderness Neurologic/Psychiatric: no motor/sensory deficits, alert, normal mood/affect, oriented x 3 Skin: normal color, warm/dry Progress/Results/Core Measures Results/Orders Lab Results Laboratory Tests Test 07/12/22 13:55 07/12/22 14:13 07/12/22 16:55 Range/Units Venous Blood pH 7.47 H 7.31-7.41 Venous Blood Partial Pressure CO2 35 L 40-52 MMHG Venous Blood HCO3 25 22-28 MMOL/L White Blood Count 6.1 4.3-11.0 10^3/uL Red Blood Count 4.45 4.30-5.52 10^6/uL Hemoglobin 12.6 L 13.3-17.7 g/dL Hematocrit 37 L 40-54 % Mean Corpuscular Volume 83 80-99 fL Mean Corpuscular Hemoglobin 28 25-34 pg Mean Corpuscular Hemoglobin Concent 34 32-36 g/dL Red Cell Distribution Width 11.9 10.0-14.5 % Platelet Count 189 130-400 10^3/uL Mean Platelet Volume 9.3 9.0-12.2 fL Immature Granulocyte % (Auto) 1 % Neutrophils (%) (Auto) 67 42-75 % Lymphocytes (%) (Auto) 24 12-44 % Monocytes (%) (Auto) 7 0-12 % Eosinophils (%) (Auto) 1 0-10 % Basophils (%) (Auto) 1 0-10 % Neutrophils # (Auto) 4.0 1.8-7.8 10^3/uL Lymphocytes # (Auto) 1.5 1.0-4.0 10^3/uL Monocytes # (Auto) 0.5 0.0-1.0 10^3/uL Eosinophils # (Auto) 0.1 0.0-0.3 10^3/uL Basophils # (Auto) 0.0 0.0-0.1 10^3/uL Immature Granulocyte # (Auto) 0.0 0.0-0.1 10^3/uL Urine Color YELLOW Urine Clarity CLEAR Urine pH 6.0 5-9 Urine Specific [place] 1.015 L 1.016-1.022 Urine Protein NEGATIVE NEGATIVE Urine Glucose (UA) 3+ H NEGATIVE Urine Ketones 3+ H NEGATIVE Urine Nitrite NEGATIVE NEGATIVE Urine Bilirubin NEGATIVE NEGATIVE Urine Urobilinogen 1.0 < = 1.0 MG/DL Urine Leukocyte Esterase NEGATIVE NEGATIVE Urine RBC (Auto) 1+ H NEGATIVE Urine RBC 2-5 H /HPF Urine WBC NONE /HPF Urine Squamous Epithelial Cells RARE /HPF Urine Crystals NONE /LPF Urine Bacteria NEGATIVE /HPF Urine Casts NONE /LPF Urine Mucus NEGATIVE /LPF Urine Culture Indicated NO Sodium Level 133 L 135-145 MMOL/L Potassium Level 4.3 3.6-5.0 MMOL/L Chloride Level 98 98-107 MMOL/L Carbon Dioxide Level 22 21-32 MMOL/L Anion Gap 13 5-14 MMOL/L Blood Urea Nitrogen 19 H 7-18 MG/DL Creatinine 0.94 0.60-1.30 MG/DL Estimat Glomerular Filtration Rate 108 BUN/Creatinine Ratio 20 Glucose Level 490 *H 70-105 MG/DL Calcium Level 8.9 8.5-10.1 MG/DL Corrected Calcium 8.9 8.5-10.1 MG/DL Total Bilirubin 0.9 0.1-1.0 MG/DL Aspartate Amino Transf (AST/SGOT) 47 H 5-34 U/L Alanine Aminotransferase (ALT/SGPT) 51 0-55 U/L Alkaline Phosphatase 79 40-136 U/L Total Protein 6.6 6.4-8.2 GM/DL Albumin 4.0 3.2-4.5 GM/DL Beta-Hydroxybutyrate (Chem panel) 2.36 H 0.00-0.27 MMOL/L Glucometer 374 H 70-110 MG/DL My Orders Orders - CHAPO CREWS APRN Cbc With Automated Diff (07/12/22 13:55) Comprehensive Metabolic Panel (07/12/22 13:55) Urinalysis (07/12/22 13:55) Iv/Invasive Line Insertion .IV INSERT (07/12/22 13:55) Beta Hydroxybutyrate (07/12/22 13:55) Venous Blood Gas (07/12/22 13:55) Lactated Ringers (Lr 1000 Ml Iv Solution (07/12/22 14:00) Ondansetron Injection (Zofran Injectio (07/12/22 14:00) Lactated Ringers (Lr 1000 Ml Iv Solution (07/12/22 15:30) Insulin Determir (Per Unit) (Levemir (Pe (07/12/22 15:30) Insulin Aspart (Novolog) (Novolog (Charg (07/12/22 15:30) Ondansetron Injection (Zofran Injectio (07/12/22 15:45) Accucheck Stat ONCE (07/12/22 16:43) Medications Given in ED Current Medications Medications Dose Ordered Sig/Fer Route Start Time Stop Time Status Last Admin Dose Admin Insulin Aspart 10 unit ONCE ONCE SC 07/12/22 15:30 07/12/22 15:31 DC 07/12/22 15:36 10 UNIT Insulin Detemir 45 unit ONCE ONCE SQ 07/12/22 15:30 07/12/22 15:31 DC 07/12/22 15:36 45 UNIT Ondansetron HCl 4 mg ONCE ONCE IVP 07/12/22 14:00 07/12/22 14:01 DC 07/12/22 14:13 4 MG Ondansetron HCl 4 mg ONCE ONCE IVP 07/12/22 15:45 07/12/22 15:46 DC 07/12/22 16:24 4 MG Vital Signs/I&O 07/12/22 07/12/22 13:28 17:01 Temp 37.0 Pulse 59 87 Resp 20 16 B/P (MAP) 168/93 (118) 140/89 Pulse Ox 100 98 O2 Delivery Room Air Room Air Blood Pressure Mean: 118 Progress Progress Note : Progress Note Patient is nontoxic on exam. Vital signs are reassuring. Patient does not have any clinical symptoms to raise suspicion for significant dehydration on exam. Patient is retching into a bucket and spitting but he is not having any active emesis while in the emergency department. Abdominal exam is reassuring without focal provocation of pain or rigidity/distention. Orders placed for CBC, CMP, urinalysis, IV insertion, beta hydroxybutyrate, and VBG. CBC is notable for very mild anemia. CMP notable for hyperglycemia and pseudohyponatremia. Corrected sodium is within normal limits. Beta hydroxybutyrate is mildly elevated but is improved from yesterday. Patient's anion gap is not elevated. VBG is notable for respiratory alkalosis. There is no indication that patient is in DKA at this time. Urinalysis notable for glucosuria and ketonuria. Patient was given a total of 2 L of lactated Ringer's via IV bolus. Patient was also given his daily 45 units of Levemir via subq injection. He was also given 10 units of insulin aspart via subq injection. Patient's blood sugar was checked approximately an hour thereafter and was noted to be in the high 300s. Patient will be discharged home with recommendations for supportive care and close follow-up with PCP. Return precautions for urgent symptomology discussed. Patient verbalized understanding. Departure Impression Primary Impression: Nausea and vomiting Qualified Codes: R11.2 - Nausea with vomiting, unspecified Additional Impression: Hyperglycemia Disposition: HOME, SELF-CARE Condition: Stable Departure-Patient Inst. Decision time for Depature: 16:35 Referrals: [facility] (PCP/Family) Primary Care Physician Patient Instructions: Nausea and Vomiting, Adult ED, High Blood Sugar, Adult ED Add. Discharge Instructions: You were given your long-acting insulin today while in the ER. You will need to take another dose tomorrow anywhere from 3:30 PM to 5:30 PM. You can stagger the dose back an additional 1 to 2 hours daily thereafter until it coincides with your normal administration time. It is important you check your blood sugar and take your insulin as prescribed to prevent these issues from recurring. If your blood sugar is not maintained appropriately over a long period of time you are on the risk of irreversible side effects. It is also important you follow-up with your regular doctor for further evaluation. You have been given 2 prescriptions for Zofran and 1 prescription for Phenergan suppositories over the last 2 days. It is important you continue to use these medicines to help control your nausea. Marijuana abstinence may also help prevent this recurrent cyclical vomiting. All discharge instructions reviewed with patient and/or family. Voiced understanding. CHAPO CREWS APRN Jul 12, 2022 14:08
[2022-07-12 14:41] LABS: BASOPHILS % (AUTO) 1 % (0-10); EOSINOPHILS # (AUTO) 0.1 10^3/uL (0.0-0.3); EOSINOPHILS % (AUTO) 1 % (0-10); HEMATOCRIT 37 % (40-54); HEMOGLOBIN 12.6 g/dL (13.3-17.7); LYMPHOCYTES # (AUTO) 1.5 10^3/uL (1.0-4.0); LYMPHOCYTES % (AUTO) 24 % (12-44); MEAN CORPUSCULAR HEMOGLOBIN 28 pg (25-34); MEAN CORPUSCULAR HGB CONC 34 g/dL (32-36); MEAN CORPUSCULAR VOLUME 83 fL (80-99); MEAN PLATELET VOLUME 9.3 fL (9.0-12.2); MONOCYTES # (AUTO) 0.5 10^3/uL (0.0-1.0); MONOCYTES % (AUTO) 7 % (0-12); NEUTROPHILS % (AUTO) 67 % (42-75); PLATELET COUNT 189 10^3/uL (130-400); WHITE BLOOD COUNT 6.1 10^3/uL (4.3-11.0)
[2022-07-12 14:44] LABS: BILIRUBIN,URINE NEGATIVE (NEGATIVE); CLARITY,URINE CLEAR; COLOR,URINE YELLOW; GLUCOSE, URINE (UA) 3+ (NEGATIVE); KETONES,URINE 3+ (NEGATIVE); LEUKOCYTE ESTERASE ,URINE NEGATIVE (NEGATIVE); NITRITE,URINE NEGATIVE (NEGATIVE); PROTEIN,URINE NEGATIVE (NEGATIVE)
[2022-07-12 14:59] LABS: POTASSIUM 4.3 MMOL/L (3.6-5.0)
[2022-07-12 15:01] LABS: CALCIUM 8.9 MG/DL (8.5-10.1)
[2022-07-12 15:02] LABS: TOTAL PROTEIN 6.6 GM/DL (6.4-8.2)
[2022-07-12 15:03] LABS: BILIRUBIN,TOTAL 0.9 MG/DL (0.1-1.0)
[2022-07-12 15:05] LABS: CREATININE SERUM 0.94 MG/DL (0.60-1.30)
[2022-07-12 15:09] LABS: BACTERIA,URINE NEGATIVE /HPF; SQUAMOUS EPITHELIAL CELL,UR RARE /HPF
[2022-07-12] MEDS ORDERED: inSUlin ASPART (NovoLOG) 1 UNIT/0.01 ML (CHARGE PER UNIT) SC ONE (15:30)
[2022-07-12 17:01] VITALS: BP 140/89
== END 2022-07-12 17:01 | disposition home or self-care (01) ==
LOC: EDUNIT# 13:22 → ER 13:27
DX: E10.65 Type 1 diabetes mellitus with hyperglycemia (principal); D64.9 Anemia, unspecified; E87.3 Alkalosis; F17.210 Nicotine dependence, cigarettes, uncomplicated
CPT/HCPCS: 36415; 80053; 81000; 82010; 82805; 82947; 85025

== ENCOUNTER 2022-09-23 10:27 | Emergency (ER) | payer SELFPAY ==
[~2022-09-23] VITALS: Ht 177 cm; Wt 82.0 kg
[~2022-09-23 10:27] MED LIST changes: -INSU100I29 SQ; +INSU100I30 SQ
[2022-09-23] MEDS ORDERED: NS IV 1000 ML 1,000 ML IV STA (10:47)
[2022-09-23] MEDS ORDERED: METOCLOPRAMIDE INJ 10 MG/2 ML (REGLAN) IVP ONE (11:00)
[2022-09-23] MEDS ORDERED: diphenhydrAMINE 50 MG/ML INJ (BENADRYL) IVP ONE (11:00)
[2022-09-23 11:02] LABS: BASOPHILS # (AUTO) 0.1 10^3/uL (0.0-0.1); BASOPHILS % (AUTO) 1 % (0-10); EOSINOPHILS # (AUTO) 0.2 10^3/uL (0.0-0.3); EOSINOPHILS % (AUTO) 2 % (0-10); HEMATOCRIT 42 % (40-54); HEMOGLOBIN 14.7 g/dL (13.3-17.7); LYMPHOCYTES # (AUTO) 2.4 10^3/uL (1.0-4.0); LYMPHOCYTES % (AUTO) 30 % (12-44); MEAN CORPUSCULAR HEMOGLOBIN 29 pg (25-34); MEAN CORPUSCULAR HGB CONC 35 g/dL (32-36); MEAN CORPUSCULAR VOLUME 83 fL (80-99); MEAN PLATELET VOLUME 9.5 fL (9.0-12.2); MONOCYTES # (AUTO) 0.5 10^3/uL (0.0-1.0); MONOCYTES % (AUTO) 6 % (0-12); NEUTROPHILS # (AUTO) 5.1 10^3/uL (1.8-7.8); NEUTROPHILS % (AUTO) 62 % (42-75); PLATELET COUNT 234 10^3/uL (130-400); WHITE BLOOD COUNT 8.2 10^3/uL (4.3-11.0)
[2022-09-23 11:10] LABS: ALBUMIN 4.7 GM/DL (3.2-4.5); CHLORIDE 105 MMOL/L (98-107); POTASSIUM 4.1 MMOL/L (3.6-5.0); SODIUM 140 MMOL/L (135-145)
[2022-09-23 11:11] LABS: CALCIUM 10.2 MG/DL (8.5-10.1)
[2022-09-23 11:13] LABS: GLUCOSE 235 MG/DL (70-105); TOTAL PROTEIN 8.4 GM/DL (6.4-8.2)
[2022-09-23 11:14] LABS: BILIRUBIN,TOTAL 0.6 MG/DL (0.1-1.0); CARBON DIOXIDE 20 MMOL/L (21-32)
--- NOTE | 2022-09-23 11:14 | ED GI ---
General Chief Complaint: Abdominal/GI Problems Stated Complaint: NAUSEA Nursing Triage Note: PT AMB TO RM 6 PT CO OF VOMITING SINCE THIS AM, PT DOES NOT KNOW WHAT BS IS. PT IS IDDM. PT ALSO HAS SWELLING ON R LOWER JAW AREA THAT PT STATES IS PROBABLY AN ABCESS TOOTH. PT RATES PAIN 6/10 STATES HAS TAKEN AN AMOXICILLIN. Source of Information: Patient Exam Limitations: No Limitations History of Present Illness Date Seen by Provider: Sep 23, 2022 Time Seen by Provider: 11:14 Allergies and Home Medications Allergies Coded Allergies: tramadol (Verified Adverse Reaction, Mild, N/V, 12/21/14) Patient Home Medication List Insulin Aspart (Novolog Flexpen) 300 Units/3 Ml Solution, 5-8 UNITS SQ AC, (Reported) Entered as Reported by: SAMRA MCCORD on 06/07/21 0935 Insulin Detemir (Levemir Flextouch) 100 Unit/1 Ml Insuln.pen, 45 UNIT SQ HS, (Reported) Entered as Reported by: SAMRA MCCORD on 08/02/21 1522 Metoclopramide HCl (Reglan) 10 Mg Tablet, 10 MG PO Q6H PRN for nausea Prescribed by: JG VILLAVICENCIO on 04/07/22 1422 Ondansetron (Ondansetron Odt) 8 Mg Tab.rapdis, 8 MG SL Q6H PRN for NAUSEA/VOMITING Prescribed by: Chapo Crews on 07/10/22 1335 Ondansetron (Ondansetron Odt) 4 Mg Tab.rapdis, 4 MG SL Q6H PRN for NAUSEA/VOMITING Prescribed by: NEVIN SAGASTUME on 07/11/22 1128 Pantoprazole Sodium (Pantoprazole Sodium) 40 Mg Tablet.dr, 40 MG PO DAILY, (Reported) Entered as Reported by: SAMRA MCCORD on 06/07/21 0935 Promethazine HCl (Promethazine Suppository) 25 Mg Supp.rect, 25 MG RC Q8H Prescribed by: Chapo Crews on 07/10/22 1335 Sucralfate (Carafate) 1 Gm Tablet, 1 GM PO ACHS, (Reported) Entered as Reported by: SAMRA MCCORD on 06/07/21 0935 Past Nbpmubo-Jnyoml-Psznrh Hx Patient Social History Tobacco Use?: No Substance use?: Yes Substance type: Marijuana Pt feels they are or have been: No Immunizations Up To Date Tetanus Booster (TDap): Unknown Influenza Vaccine Up-to-Date: No; Not Current First/Initial COVID19 Vaccinat: 2020 Second COVID19 Vaccination Kumar: 2020 Third COVID19 Vaccination Date: UNK Seasonal Allergies Seasonal Allergies: No Past Medical History Surgery/Hospitalization HX: GALLBLADDER, DM Surgeries: Yes Abdominal, Gallbladder Respiratory: Yes (copd dx by patient) COPD Currently Using CPAP: No Currently Using BIPAP: No Cardiac: Yes Hypertension Neurological: Yes Neuropathy Reproductive Disorders: No Sexually Transmitted Disease: No HIV/AIDS: No Genitourinary: Yes Kidney Infection Gastrointestinal: Yes (ELEVATED LIVER ENZYMES, Hep A; CANNIBIS HYPEREMESIS; ) Gastroesophageal Reflux, Liver Disease/Jaundice, Esophagitis Musculoskeletal: Yes Arthritis, Scoliosis, Chronic Back Pain Endocrine: Yes (Type I) Diabetes, Insulin dep HEENT: No Hearing Impairment: Denies Cancer: No Psychosocial: Yes (POLYSUBSTANCE ABUSE) Depression Integumentary: No Blood Disorders: No Adverse Reaction/Blood Tranf: No Family Medical History Alcoholism 19 FATHER G8 BROTHER Congenital heart disease 19 FATHER Family history: Cardiovascular disease 19 FATHER, Onset:40's - 50 Family history: Diabetes mellitus 19 MOTHER Family history: Hypertension 19 FATHER Heart disease 19 FATHER History of - respiratory disease 19 FATHER History of drug abuse 19 MOTHER Hypercholesterolemia 19 FATHER Myocardial infarction 19 FATHER Seizure disorder 19 FATHER No Family History of: Abdominal aortic aneurysm Markos's disease Cancer Congestive heart failure Cystic fibrosis Dementia Dysphagia Family history: Allergy Family history: Alzheimer's disease Family history: Arthritis Family history: Asthma Family history: Breast disease Family history: Coronary thrombosis Family history: Gastrointestinal disease Family history: Glaucoma Family history: Osteoporosis Family history: Thyroid disorder Headache Hearing loss Hereditary disease History of - anemia History of - disorder Human immunodeficiency virus (HIV) seropositivity Infertile Kidney disease Malignant neoplasm of lung Parkinson's disease Prostate cancer Psychotic disorder Stroke Tuberculosis Visual impairment Heart Disease, Diabetes, Hypertension SOCIAL HISTORY: -SMOKES 1 PPD -History of DRUGS--+ IV METH USE, COCAINE USE, THC, RX DRUGS--ESPECIALLY HYDROCODONE AND ADDERALL -History of ETOH--HEAVY REGULAR/DAILY USE Physical Exam Vital Signs Vital Signs - First Documented 09/23/22 10:35 Temp 35.8 Pulse 49 Resp 18 Pulse Ox 100 Capillary Refill : Less Than 3 Seconds Height/Weight/BMI Height: 5'10.00" Weight: 240lbs. 0oz. 108.325861ly; 26.00 BMI Method:Stated Progress/Results/Core Measures Results/Orders Lab Results Laboratory Tests Test 09/23/22 10:42 09/23/22 10:50 Range/Units Glucometer 238 H 70-110 MG/DL White Blood Count 8.2 4.3-11.0 10^3/uL Red Blood Count 5.14 4.30-5.52 10^6/uL Hemoglobin 14.7 13.3-17.7 g/dL Hematocrit 42 40-54 % Mean Corpuscular Volume 83 80-99 fL Mean Corpuscular Hemoglobin 29 25-34 pg Mean Corpuscular Hemoglobin Concent 35 32-36 g/dL Red Cell Distribution Width 12.1 10.0-14.5 % Platelet Count 234 130-400 10^3/uL Mean Platelet Volume 9.5 9.0-12.2 fL Immature Granulocyte % (Auto) 0 % Neutrophils (%) (Auto) 62 42-75 % Lymphocytes (%) (Auto) 30 12-44 % Monocytes (%) (Auto) 6 0-12 % Eosinophils (%) (Auto) 2 0-10 % Basophils (%) (Auto) 1 0-10 % Neutrophils # (Auto) 5.1 1.8-7.8 10^3/uL Lymphocytes # (Auto) 2.4 1.0-4.0 10^3/uL Monocytes # (Auto) 0.5 0.0-1.0 10^3/uL Eosinophils # (Auto) 0.2 0.0-0.3 10^3/uL Basophils # (Auto) 0.1 0.0-0.1 10^3/uL Immature Granulocyte # (Auto) 0.0 0.0-0.1 10^3/uL Sodium Level 140 135-145 MMOL/L Potassium Level 4.1 3.6-5.0 MMOL/L Chloride Level 105 98-107 MMOL/L Carbon Dioxide Level 20 L 21-32 MMOL/L Anion Gap 15 H 5-14 MMOL/L Glucose Level 235 H 70-105 MG/DL Calcium Level 10.2 H 8.5-10.1 MG/DL Corrected Calcium 8.5-10.1 MG/DL Total Bilirubin 0.6 0.1-1.0 MG/DL Total Protein 8.4 H 6.4-8.2 GM/DL Albumin 4.7 H 3.2-4.5 GM/DL My Orders Orders - JG VILLAVICENCIO MD Ed Iv/Invasive Line Start (09/23/22 10:47) Metoclopramide Injection (Reglan Injecti (09/23/22 11:00) Diphenhydramine Injection (Benadryl Inje (09/23/22 11:00) Cbc With Automated Diff (09/23/22 10:47) Comprehensive Metabolic Panel (09/23/22 10:47) Lipase (09/23/22 10:47) Accucheck Stat ONCE (09/23/22 10:47) Ns Iv 1000 Ml (Sodium Chloride 0.9%) (09/23/22 10:47) Medications Given in ED Current Medications Medications Dose Ordered Sig/Fer Route Start Time Stop Time Status Last Admin Dose Admin Diphenhydramine HCl 50 mg ONCE ONCE IVP 09/23/22 11:00 09/23/22 11:01 DC 09/23/22 10:55 50 MG Metoclopramide HCl 10 mg ONCE ONCE IVP 09/23/22 11:00 09/23/22 11:01 DC 09/23/22 10:55 10 MG Vital Signs/I&O 09/23/22 10:35 Temp 35.8 Pulse 49 Resp 18 B/P (MAP) Pulse Ox 100 FSBG Bedside Testing Finger Stick Blood Glucose: 238 Blood Glucose Action Taken: REPORTED TO DR Hernandez Departure-Patient Inst. Referrals: [facility] (PCP/Family) Primary Care Physician JG VILLAVICENCIO MD Sep 23, 2022 11:14
[2022-09-23 11:16] LABS: ALKALINE PHOSPHATASE 108 U/L (40-136); CREATININE SERUM 0.94 MG/DL (0.60-1.30); GFR ESTIMATED 108
[2022-09-23 11:17] LABS: BUN/CREATININE RATIO 15
[2022-09-23 11:19] LABS: ALANINE AMINOTRANSFERASE 38 U/L (0-55)
[2022-09-23 11:20] LABS: LIPASE 11 U/L (8-78)
--- NOTE | 2022-09-23 11:40 | ED EENT ---
History of Present Illness General Chief Complaint: Abdominal/GI Problems Stated Complaint: NAUSEA Nursing Triage Note: PT AMB TO RM 6 PT CO OF VOMITING SINCE THIS AM, PT DOES NOT KNOW WHAT BS IS. PT IS IDDM. PT ALSO HAS SWELLING ON R LOWER JAW AREA THAT PT STATES IS PROBABLY AN ABCESS TOOTH. PT RATES PAIN 6/10 STATES HAS TAKEN AN AMOXICILLIN. Source: patient Exam Limitations: no limitations History of Present Illness Date Seen by Provider: Sep 23, 2022 Time Seen by Provider: 11:26 Initial Comments 37-year-old male presents the ED with complaints of nausea and vomiting starting this morning. He reports he has had multiple episodes, too many to count. He complains of mid upper abdominal pain. He also reports swelling in his right lower jaw, and right lower dental pain which started last night. He reports he has had abscesses in this area before. He had a leftover amoxicillin, so he took 2 doses of it. He denies fevers, chest pain, shortness of air, diarrhea, dysuria. States last bowel movement was 3 to 4 days ago. He states that it is normal for him to go that long without bowel movements. He is a type I diabetic, currently takes NovoLog and Levemir. Reports that he has been compliant with his medications. Allergies and Home Medications Allergies Coded Allergies: tramadol (Verified Adverse Reaction, Mild, N/V, 12/21/14) Patient Home Medication List Home Medication List Reviewed: Yes Clindamycin HCl (Clindamycin HCl) 300 Mg Capsule, 450 MG PO TID Prescribed by: Jennifer Mesa on 09/23/22 1539 Insulin Aspart (Novolog Flexpen) 300 Units/3 Ml Solution, 5-8 UNITS SQ AC, (Reported) Entered as Reported by: SAMRA MCCORD on 06/07/21 0935 Insulin Detemir (Levemir Flextouch) 100 Unit/1 Ml Insuln.pen, 45 UNIT SQ HS, (Reported) Entered as Reported by: SAMRA MCCORD on 08/02/21 1522 Metoclopramide HCl (Reglan) 10 Mg Tablet, 10 MG PO Q6H PRN for nausea Prescribed by: JG VILLAVICENCIO on 04/07/22 1422 Ondansetron (Ondansetron Odt) 8 Mg Tab.rapdis, 8 MG SL Q6H PRN for NAUSEA/VOMITING Prescribed by: Chapo Crews on 07/10/22 1335 Ondansetron (Ondansetron Odt) 4 Mg Tab.rapdis, 4 MG SL Q6H PRN for NAUSEA/VOMITING Prescribed by: NEVIN SAGASTUME on 07/11/22 1128 Ondansetron (Ondansetron Odt) 4 Mg Tab.rapdis, 4 MG SL Q4H PRN for NAUSEA/VOMITING Prescribed by: Jennifer Mesa on 09/23/22 1538 Pantoprazole Sodium (Pantoprazole Sodium) 40 Mg Tablet.dr, 40 MG PO DAILY, (Reported) Entered as Reported by: SAMRA MCCORD on 06/07/21 0935 Promethazine HCl (Promethazine Suppository) 25 Mg Supp.rect, 25 MG RC Q8H Prescribed by: Chapo Crews on 07/10/22 1335 Sucralfate (Carafate) 1 Gm Tablet, 1 GM PO ACHS, (Reported) Entered as Reported by: SAMRA MCCORD on 06/07/21 0935 Review of Systems Review of Systems Constitutional: see HPI Past [id number]-Dlysdo-Biubcv Hx Patient Social History Tobacco Use?: No Substance use?: Yes Substance type: Marijuana Pt feels they are or have been: No Immunizations Up To Date Tetanus Booster (TDap): Unknown Influenza Vaccine Up-to-Date: No; Not Current First/Initial COVID19 Vaccinat: 2020 Second COVID19 Vaccination Kumar: 2020 Third COVID19 Vaccination Date: UNK Seasonal Allergies Seasonal Allergies: No Past Medical History Surgery/Hospitalization HX: GALLBLADDER, DM Surgeries: Yes Abdominal, Gallbladder Respiratory: Yes (copd dx by patient) COPD Currently Using CPAP: No Currently Using BIPAP: No Cardiac: Yes Hypertension Neurological: Yes Neuropathy Reproductive Disorders: No Sexually Transmitted Disease: No HIV/AIDS: No Genitourinary: Yes Kidney Infection Gastrointestinal: Yes (ELEVATED LIVER ENZYMES, Hep A; CANNIBIS HYPEREMESIS; ) Gastroesophageal Reflux, Liver Disease/Jaundice, Esophagitis Musculoskeletal: Yes Arthritis, Scoliosis, Chronic Back Pain Endocrine: Yes (Type I) Diabetes, Insulin dep HEENT: No Hearing Impairment: Denies Cancer: No Psychosocial: Yes (POLYSUBSTANCE ABUSE) Depression Integumentary: No Blood Disorders: No Adverse Reaction/Blood Tranf: No Family Medical History Alcoholism 19 FATHER G8 BROTHER Congenital heart disease 19 FATHER Family history: Cardiovascular disease 19 FATHER, Onset:40's - 50 Family history: Diabetes mellitus 19 MOTHER Family history: Hypertension 19 FATHER Heart disease 19 FATHER History of - respiratory disease 19 FATHER History of drug abuse 19 MOTHER Hypercholesterolemia 19 FATHER Myocardial infarction 19 FATHER Seizure disorder 19 FATHER No Family History of: Abdominal aortic aneurysm Markos's disease Cancer Congestive heart failure Cystic fibrosis Dementia Dysphagia Family history: Allergy Family history: Alzheimer's disease Family history: Arthritis Family history: Asthma Family history: Breast disease Family history: Coronary thrombosis Family history: Gastrointestinal disease Family history: Glaucoma Family history: Osteoporosis Family history: Thyroid disorder Headache Hearing loss Hereditary disease History of - anemia History of - disorder Human immunodeficiency virus (HIV) seropositivity Infertile Kidney disease Malignant neoplasm of lung Parkinson's disease Prostate cancer Psychotic disorder Stroke Tuberculosis Visual impairment Heart Disease, Diabetes, Hypertension SOCIAL HISTORY: -SMOKES 1 PPD -History of DRUGS--+ IV METH USE, COCAINE USE, THC, RX DRUGS--ESPECIALLY HYDROCODONE AND ADDERALL -History of ETOH--HEAVY REGULAR/DAILY USE Physical Exam Vital Signs Vital Signs - First Documented 09/23/22 09/23/22 10:35 15:44 Temp 35.8 Pulse 49 Resp 18 B/P (MAP) 136/72 Pulse Ox 100 Height, Weight, BMI Height: 5'10.00" Weight: 240lbs. 0oz. [id number]; 26.00 BMI Method:Stated General Appearance: WD/WN, no apparent distress Mouth/Throat: dental tenderness, other (Abscess right lower jaw, poor dentition, multiple missing teeth) Neck: supple, normal inspection Cardiovascular: regular rate, rhythm Respiratory: lungs clear, normal breath sounds, no respiratory distress, no accessory muscle use Gastrointestinal: normal bowel sounds, soft, tenderness (Mid upper) Neurologic/Psychiatric: alert, normal mood/affect Skin: normal color, warm/dry Progress/Results/Core Measures Results/Orders Lab Results Laboratory Tests Test 09/23/22 10:42 09/23/22 10:50 09/23/22 11:27 09/23/22 13:17 Range/Units Glucometer 238 H 70-110 MG/DL White Blood Count 8.2 4.3-11.0 10^3/uL Red Blood Count 5.14 4.30-5.52 10^6/uL Hemoglobin 14.7 13.3-17.7 g/dL Hematocrit 42 40-54 % Mean Corpuscular Volume 83 80-99 fL Mean Corpuscular Hemoglobin 29 25-34 pg Mean Corpuscular Hemoglobin Concent 35 32-36 g/dL Red Cell Distribution Width 12.1 10.0-14.5 % Platelet Count 234 130-400 10^3/uL Mean Platelet Volume 9.5 9.0-12.2 fL Immature Granulocyte % (Auto) 0 % Neutrophils (%) (Auto) 62 42-75 % Lymphocytes (%) (Auto) 30 12-44 % Monocytes (%) (Auto) 6 0-12 % Eosinophils (%) (Auto) 2 0-10 % Basophils (%) (Auto) 1 0-10 % Neutrophils # (Auto) 5.1 1.8-7.8 10^3/uL Lymphocytes # (Auto) 2.4 1.0-4.0 10^3/uL Monocytes # (Auto) 0.5 0.0-1.0 10^3/uL Eosinophils # (Auto) 0.2 0.0-0.3 10^3/uL Basophils # (Auto) 0.1 0.0-0.1 10^3/uL Immature Granulocyte # (Auto) 0.0 0.0-0.1 10^3/uL Sodium Level 140 135-145 MMOL/L Potassium Level 4.1 3.6-5.0 MMOL/L Chloride Level 105 98-107 MMOL/L Carbon Dioxide Level 20 L 21-32 MMOL/L Anion Gap 15 H 5-14 MMOL/L Blood Urea Nitrogen 14 7-18 MG/DL Creatinine 0.94 0.60-1.30 MG/DL Estimat Glomerular Filtration Rate 108 BUN/Creatinine Ratio 15 Glucose Level 235 H 70-105 MG/DL Calcium Level 10.2 H 8.5-10.1 MG/DL Corrected Calcium 8.5-10.1 MG/DL Total Bilirubin 0.6 0.1-1.0 MG/DL Aspartate Amino Transf (AST/SGOT) 28 5-34 U/L Alanine Aminotransferase (ALT/SGPT) 38 0-55 U/L Alkaline Phosphatase 108 40-136 U/L Total Protein 8.4 H 6.4-8.2 GM/DL Albumin 4.7 H 3.2-4.5 GM/DL Lipase 11 8-78 U/L Beta-Hydroxybutyrate (Chem panel) 0.10 0.00-0.27 MMOL/L Venous Blood pH 7.34 7.31-7.41 Venous Blood Partial Pressure CO2 30 L 40-52 MMHG Venous Blood HCO3 16 L 22-28 MMOL/L Urine Color YELLOW Urine Clarity CLEAR Urine pH 8.5 5-9 Urine Specific [place] 1.015 L 1.016-1.022 Urine Protein 1+ H NEGATIVE Urine Glucose (UA) 3+ H NEGATIVE Urine Ketones NEGATIVE NEGATIVE Urine Nitrite NEGATIVE NEGATIVE Urine Bilirubin NEGATIVE NEGATIVE Urine Urobilinogen 1.0 < = 1.0 MG/DL Urine Leukocyte Esterase NEGATIVE NEGATIVE Urine RBC (Auto) TRACE-I H NEGATIVE Urine RBC 5-10 H /HPF Urine WBC NONE /HPF Urine Squamous Epithelial Cells NONE /HPF Urine Crystals NONE /LPF Urine Bacteria NEGATIVE /HPF Urine Casts NONE /LPF Urine Mucus NEGATIVE /LPF Urine Culture Indicated NO My Orders Orders - JENNIFER MESA APRN Ua Culture If Indicated (09/23/22 11:27) Venous Blood Gas (09/23/22 11:27) Beta Hydroxybutyrate (09/23/22 11:27) Ondansetron Injection (Zofran Injectio (09/23/22 12:45) Ketorolac Injection (Toradol Injection) (09/23/22 14:30) Lidocaine 2% Viscous 15 Ml (Xylocaine Vi (09/23/22 14:30) Antacid Suspension (Mylanta Suspension (09/23/22 14:30) Famotidine Injection (Pepcid Injection) (09/23/22 14:27) Lidocaine/Epi 2% 1:100,000 (Xylocaine/Ep (09/23/22 15:15) Lidocaine 1% Inj 20 Ml (Xylocaine 1% Inj (09/23/22 15:07) Clindamycin Capsule (Cleocin Capsule) (09/23/22 15:45) Medications Given in ED Vital Signs/I&O FSBG Bedside Testing Finger Stick Blood Glucose: 238 Blood Glucose Action Taken: REPORTED TO Progress Progress Note : Time: 11:43 Progress Note Patient seen and evaluated, resting comfortably in bed, no acute distress. Based on exam and symptoms, work-up initiated including CBC, CMP, amylase, lipase, UA, venous pH, beta hydroxybutyrate. IV fluids and Zofran ordered. 1428 Labs reviewed. CBC grosly normal. CMP shows slightly low CO2 20, slightly elevated anion gap 15, glucose 235, beta hydroxybuterate 0.10, venous pH 7.34. UA negative for ketones or infection. I do not believe patient is in DKA. Results discussed with patient. Patient states he still feels unwell, he does not want narcotic pain medications though. Will attempt to treat his pain with toradol, pepcid, and a GI cocktail. 1525 Dr. Villavicencio assessed patient's dental abscess, she does not think it can be drained. I will prescribe an antibiotic for patient. Patient reports he is feeling better. Will discharge with prescription for zofran as well since this seemed to help his nausea more than the reglan. Discharge instructions and return precautions provided. Departure Impression Primary Impression: Dental abscess Additional Impressions: Vomiting Epigastric abdominal pain Disposition: HOME, SELF-CARE Condition: Stable Departure-Patient Inst. Decision time for Depature: 15:36 Referrals: [facility] [place] (PCP/Family) Primary Care Physician Patient Instructions: Tooth Abscess ED Add. Discharge Instructions: Take clindamycin 3 times a day for 10 days. Complete full course of antibiotic, even if you begin to feel better. Take Zofran as needed for nausea and vomiting. Follow-up with your primary care provider next week. You should also follow-up with a dentist. You can go to [facility] to see a dentist. Return for uncontrolled vomiting, severe abdominal pain, fever, or any other new, concerning, or worsening symptoms. All discharge instructions reviewed with patient and/or family. Voiced understanding. Scripts Clindamycin HCl (Clindamycin HCl) 300 Mg Capsule 450 MG PO TID for 10 Days, #30 CAP 0 Refills Prov: JENNIFER MESA APRN 09/23/22 Ondansetron (Ondansetron Odt) 4 Mg Tab.rapdis 4 MG SL Q4H PRN for NAUSEA/VOMITING, #20 TAB 0 Refills Prov: JENNIFER MESA APRN 09/23/22 JENNIFER MESA APRN Sep 23, 2022 11:40
[2022-09-23] MEDS ORDERED: ONDANSETRON 4 MG/2 ML (SDV) Z0FRAN IVP ONE (12:45)
[2022-09-23 13:24] LABS: BILIRUBIN,URINE NEGATIVE (NEGATIVE); CLARITY,URINE CLEAR; COLOR,URINE YELLOW; GLUCOSE, URINE (UA) 3+ (NEGATIVE); KETONES,URINE NEGATIVE (NEGATIVE); LEUKOCYTE ESTERASE ,URINE NEGATIVE (NEGATIVE); NITRITE,URINE NEGATIVE (NEGATIVE); PH,URINE 8.5 (5-9); PROTEIN,URINE 1+ (NEGATIVE)
[2022-09-23 13:41] LABS: BACTERIA,URINE NEGATIVE /HPF
[2022-09-23] MEDS ORDERED: FAMOTIDINE 20MG/2ML IV (PEPCID) IV STA (14:27)
[2022-09-23] MEDS ORDERED: ANTACID SUSP 30 ML UDC (MYLANTA) PO ONE (14:30)
[2022-09-23] MEDS ORDERED: LIDOCAINE 2% VISCOUS 15 ML UDC PO ONE (14:30)
[2022-09-23] MEDS ORDERED: KETOROLAC 15 MG/ML VIAL IVP ONE (14:30)
[2022-09-23] MEDS ORDERED: LIDOCAINE 1% INJ 20 ML VIAL ONE (15:07)
[2022-09-23] MEDS ORDERED: LIDOCAINE/EPI 2% 1:100,00 (XYLOCAINE) 20 ML VIAL INJ ONE (15:15)
[2022-09-23] MEDS ORDERED: ONDA4TAB11 SL (15:38)
[2022-09-23] MEDS ORDERED: CLIN-144 PO (15:39)
[2022-09-23 15:44] VITALS: BP 136/72
[2022-09-23] MEDS ORDERED: CLINDAMYCIN 150 MG (CLEOCIN) CAP PO ONE ×2 (15:45)
== END 2022-09-23 15:50 | disposition home or self-care (01) ==
LOC: EDUNIT# 10:27 → ER 10:32
DX: R11.2 Nausea with vomiting, unspecified (principal); R10.13 Epigastric pain; K04.7 Periapical abscess without sinus; E87.21 Acute metabolic acidosis; R79.81 Abnormal blood-gas level; E10.9 Type 1 diabetes mellitus without complications; F17.210 Nicotine dependence, cigarettes, uncomplicated; Z91.148 Patient's other noncompliance with medication regimen for other reason
CPT/HCPCS: 36415; 80053; 81000; 82010; 82805; 82947; 83690; 85025

== ENCOUNTER 2023-01-30 07:40 | Observation (INO) | payer SELFPAY ==
[~2023-01-30] VITALS: Ht 176 cm; Wt 78.2 kg
[~2023-01-30 07:40] MED LIST changes: +CLIN-144 PO
[2023-01-30] MEDS ORDERED: PANTOPRAZOLE INJECTION 40 MG VIAL IV ONE (08:00)
[2023-01-30] MEDS ORDERED: ONDANSETRON INJECTION 4 MG/2 ML (SDV) IVP ONE (08:00)
[2023-01-30 08:05] LABS: BASOPHILS % (AUTO) 1 % (0-10); EOSINOPHILS # (AUTO) 0.2 10^3/uL (0.0-0.3); EOSINOPHILS % (AUTO) 2 % (0-10); HEMATOCRIT 36 % (40-54); HEMOGLOBIN 11.9 g/dL (13.3-17.7); LYMPHOCYTES # (AUTO) 1.4 10^3/uL (1.0-4.0); LYMPHOCYTES % (AUTO) 17 % (12-44); MEAN CORPUSCULAR HEMOGLOBIN 29 pg (25-34); MEAN CORPUSCULAR HGB CONC 34 g/dL (32-36); MEAN CORPUSCULAR VOLUME 87 fL (80-99); MEAN PLATELET VOLUME 9.2 fL (9.0-12.2); MONOCYTES # (AUTO) 0.4 10^3/uL (0.0-1.0); MONOCYTES % (AUTO) 5 % (0-12); NEUTROPHILS # (AUTO) 6.1 10^3/uL (1.8-7.8); NEUTROPHILS % (AUTO) 75 % (42-75); PLATELET COUNT 172 10^3/uL (130-400); WHITE BLOOD COUNT 8.2 10^3/uL (4.3-11.0)
[2023-01-30 08:09] LABS: ALBUMIN 3.7 GM/DL (3.2-4.5); CHLORIDE 104 MMOL/L (98-107); POTASSIUM 3.7 MMOL/L (3.6-5.0); SODIUM 139 MMOL/L (135-145)
[2023-01-30 08:10] LABS: CALCIUM 8.7 MG/DL (8.5-10.1)
[2023-01-30 08:12] LABS: GLUCOSE 199 MG/DL (70-105); TOTAL PROTEIN 6.1 GM/DL (6.4-8.2)
[2023-01-30 08:13] LABS: CARBON DIOXIDE 23 MMOL/L (21-32)
[2023-01-30 08:16] LABS: ALKALINE PHOSPHATASE 64 U/L (40-136); CREATININE SERUM 0.84 MG/DL (0.60-1.30); GFR ESTIMATED 117
[2023-01-30 08:17] LABS: BUN/CREATININE RATIO 23
[2023-01-30 08:18] LABS: MAGNESIUM 1.8 MG/DL (1.6-2.4); SALICYLATE < 5.0 MG/DL (5.0-20.0)
[2023-01-30 08:19] LABS: ALANINE AMINOTRANSFERASE 46 U/L (0-55); LIPASE < 4 U/L (8-78)
--- NOTE | 2023-01-30 08:24 | ED Abdominal Pain ---
General Chief Complaint: Abdominal/GI Problems Stated Complaint: VOMITING | SORE THROAT Nursing Triage Note: PT PRESENTS BY EMS FOR NAUSEA THAT BEGAN AT 0300. DENIES DIARRHEA OR EMESIS. DENIES FEVERS. DOES STATE HE HAS A SORE THROAT THAT BEGAN BEFORE THE WRETCHING Source of Information: Patient Exam Limitations: No Limitations History of Present Illness Date Seen by Provider: Jan 30, 2023 Time Seen by Provider: 07:45 Initial Comments This 37-year-old young man presents to the emergency room via EMS with complaints of vomiting, sore throat, and abdominal pain, most intense in the epigastrium. Symptoms just started this morning. He has had some mild cough and shortness of breath. He denies any fever or diarrhea. He has not had any sick exposures that he is aware of. He has diabetes with multiple admissions for DKA. His course of diabetes is interesting as he started out with type 2 diabetes many years ago and then seemed to develop type 1 diabetes. He has a history of drug and alcohol abuse. He denies any recent alcohol use but admits to smoking marijuana as recently as 1 day ago. He is currently receiving Suboxone from Kristian at the [facility] clinic. He denies having any primary care prov ider. EMS reports bradycardia with heart rate in the 40s. Fingerstick blood sugar for EMS was 205. Zofran 4 mg IV was administered in route and IV fluids were initiated. Patient is noted to be rather irritable. Patient's last dose of Suboxone was this morning but he may have vomited afterwards. Allergies and Home Medications Allergies Coded Allergies: tramadol (Verified Adverse Reaction, Mild, N/V, 12/21/14) Patient Home Medication List Home Medication List Reviewed: Yes Clindamycin HCl (Clindamycin HCl) 300 Mg Capsule, 450 MG PO TID Prescribed by: Jennifer Ugalde on 09/23/22 1539 Insulin Aspart (Novolog Flexpen) 300 Units/3 Ml Solution, 5-8 UNITS SQ AC, (Reported) Entered as Reported by: SAMRA MCCORD on 06/07/21 0935 Insulin Detemir (Levemir Flextouch) 100 Unit/1 Ml Insuln.pen, 45 UNIT SQ HS, (Reported) Entered as Reported by: SAMRA MCCORD on 08/02/21 1522 Metoclopramide HCl (Reglan) 10 Mg Tablet, 10 MG PO Q6H PRN for nausea Prescribed by: JG VILLAVICENCIO on 04/07/22 1422 Ondansetron (Ondansetron Odt) 8 Mg Tab.rapdis, 8 MG SL Q6H PRN for NAUSEA/VOMITING Prescribed by: Chapo Crews on 07/10/22 1335 Ondansetron (Ondansetron Odt) 4 Mg Tab.rapdis, 4 MG SL Q6H PRN for NAUSEA/VOMITING Prescribed by: NEVIN SAGASTUME on 07/11/22 1128 Ondansetron (Ondansetron Odt) 4 Mg Tab.rapdis, 4 MG SL Q4H PRN for NAUSEA/VOMITING Prescribed by: Jennifer Ugalde on 09/23/22 1538 Pantoprazole Sodium (Pantoprazole Sodium) 40 Mg Tablet.dr, 40 MG PO DAILY, (Reported) Entered as Reported by: SAMRA MCCORD on 06/07/21 0935 Promethazine HCl (Promethazine Suppository) 25 Mg Supp.rect, 25 MG RC Q8H Prescribed by: Chapo Crews on 07/10/22 1335 Sucralfate (Carafate) 1 Gm Tablet, 1 GM PO ACHS, (Reported) Entered as Reported by: SAMRA MCCORD on 06/07/21 0935 Review of Systems Review of Systems Constitutional: no symptoms reported EENTM: See HPI Respiratory: See HPI Cardiovascular: No Symptoms Reported Gastrointestinal: See HPI Genitourinary: No Symptoms Reported Musculoskeletal: no symptoms reported Skin: no symptoms reported Psychiatric/Neurological: See HPI Endocrine: No Symptoms Reported Hematologic/Lymphatic: No Symptoms Reported Past Sivwnji-Uxyesz-Cqozmp Hx Patient Social History Tobacco Use?: No Substance use?: Yes Substance type: Methamphetamine, Marijuana Alcohol Use?: No (Prior alcohol dependence) Pt feels they are or have been: No Immunizations Up To Date Tetanus Booster (TDap): Unknown First/Initial COVID19 Vaccinat: 2020 Second COVID19 Vaccination Kumar: 2020 Third COVID19 Vaccination Date: UNK Seasonal Allergies Seasonal Allergies: No Past Medical History Surgery/Hospitalization HX: GALLBLADDER, DM Surgeries: Yes Abdominal, Gallbladder Respiratory: Yes (copd dx by patient) COPD Currently Using CPAP: No Currently Using BIPAP: No Cardiac: Yes Hypertension Neurological: Yes Neuropathy Reproductive Disorders: No Sexually Transmitted Disease: No HIV/AIDS: No Genitourinary: Yes Kidney Infection Gastrointestinal: Yes (ELEVATED LIVER ENZYMES, Hep A; CANNIBIS HYPEREMESIS; ) Gastroesophageal Reflux, Liver Disease/Jaundice, Esophagitis Musculoskeletal: Yes Arthritis, Scoliosis, Chronic Back Pain Endocrine: Yes (Type I) Diabetes, Insulin dep HEENT: No Hearing Impairment: Denies Cancer: No Psychosocial: Yes (POLYSUBSTANCE ABUSE) Depression Integumentary: No Blood Disorders: No Adverse Reaction/Blood Tranf: No Family Medical History Alcoholism 19 FATHER G8 BROTHER Congenital heart disease 19 FATHER Family history: Cardiovascular disease 19 FATHER, Onset:40's - 50 Family history: Diabetes mellitus 19 MOTHER Family history: Hypertension 19 FATHER Heart disease 19 FATHER History of - respiratory disease 19 FATHER History of drug abuse 19 MOTHER Hypercholesterolemia 19 FATHER Myocardial infarction 19 FATHER Seizure disorder 19 FATHER No Family History of: Abdominal aortic aneurysm Lincoln's disease Cancer Congestive heart failure Cystic fibrosis Dementia Dysphagia Family history: Allergy Family history: Alzheimer's disease Family history: Arthritis Family history: Asthma Family history: Breast disease Family history: Coronary thrombosis Family history: Gastrointestinal disease Family history: Glaucoma Family history: Osteoporosis Family history: Thyroid disorder Headache Hearing loss Hereditary disease History of - anemia History of - disorder Human immunodeficiency virus (HIV) seropositivity Infertile Kidney disease Malignant neoplasm of lung Parkinson's disease Prostate cancer Psychotic disorder Stroke Tuberculosis Visual impairment Heart Disease, Diabetes, Hypertension SOCIAL HISTORY: -SMOKES 1 PPD -History of DRUGS--+ IV METH USE, COCAINE USE, THC, RX DRUGS--ESPECIALLY HYDROCODONE AND ADDERALL -History of ETOH--HEAVY REGULAR/DAILY USE Physical Exam Vital Signs Vital Signs - First Documented 01/30/23 07:46 Temp 36.4 Pulse 48 Resp 15 B/P (MAP) 165/97 (119) Pulse Ox 99 O2 Delivery Room Air Capillary Refill : Height/Weight/BMI Height: 5'10.00" Weight: 240lbs. 0oz. [id number]; 24.00 BMI Method:Stated General Appearance: WD/WN, moderate distress, thin HEENT: PERRL/EOMI, normal ENT inspection Neck: normal inspection Respiratory: lungs clear, normal breath sounds, no respiratory distress Cardiovascular: no edema, no murmur, bradycardia (Irregular rate, sinus on the monitor) Gastrointestinal: soft; No distended; tenderness (Generalized but more prominent in the epigastrium) Extremities: normal inspection, no pedal edema Neurologic/Psychiatric: no motor/sensory deficits, alert, oriented x 3, other (Alert, oriented, able to have a conversation, but mentation is sluggish with somnolence) Skin: normal color, warm/dry Progress/Results/Core Measures Results/Orders Lab Results Laboratory Tests Test 01/30/23 06:20 01/30/23 07:50 01/30/23 09:00 Range/Units White Blood Count 8.2 4.3-11.0 10^3/uL Red Blood Count 4.10 L 4.30-5.52 10^6/uL Hemoglobin 11.9 L 13.3-17.7 g/dL Hematocrit 36 L 40-54 % Mean Corpuscular Volume 87 80-99 fL Mean Corpuscular Hemoglobin 29 25-34 pg Mean Corpuscular Hemoglobin Concent 34 32-36 g/dL Red Cell Distribution Width 12.7 10.0-14.5 % Platelet Count 172 130-400 10^3/uL Mean Platelet Volume 9.2 9.0-12.2 fL Immature Granulocyte % (Auto) 0 % Neutrophils (%) (Auto) 75 42-75 % Lymphocytes (%) (Auto) 17 12-44 % Monocytes (%) (Auto) 5 0-12 % Eosinophils (%) (Auto) 2 0-10 % Basophils (%) (Auto) 1 0-10 % Neutrophils # (Auto) 6.1 1.8-7.8 10^3/uL Lymphocytes # (Auto) 1.4 1.0-4.0 10^3/uL Monocytes # (Auto) 0.4 0.0-1.0 10^3/uL Eosinophils # (Auto) 0.2 0.0-0.3 10^3/uL Basophils # (Auto) 0.0 0.0-0.1 10^3/uL Immature Granulocyte # (Auto) 0.0 0.0-0.1 10^3/uL Sodium Level 139 135-145 MMOL/L Potassium Level 3.7 3.6-5.0 MMOL/L Chloride Level 104 98-107 MMOL/L Carbon Dioxide Level 23 21-32 MMOL/L Anion Gap 12 5-14 MMOL/L Blood Urea Nitrogen 19 H 7-18 MG/DL Creatinine 0.84 0.60-1.30 MG/DL Estimat Glomerular Filtration Rate 117 BUN/Creatinine Ratio 23 Glucose Level 199 H 70-105 MG/DL Calcium Level 8.7 8.5-10.1 MG/DL Corrected Calcium 8.9 8.5-10.1 MG/DL Magnesium Level 1.8 1.6-2.4 MG/DL Total Bilirubin 1.0 0.1-1.0 MG/DL Aspartate Amino Transf (AST/SGOT) 32 5-34 U/L Alanine Aminotransferase (ALT/SGPT) 46 0-55 U/L Alkaline Phosphatase 64 40-136 U/L C-Reactive Protein High Sensitivity 0.12 0.00-0.50 MG/DL Total Protein 6.1 L 6.4-8.2 GM/DL Albumin 3.7 3.2-4.5 GM/DL Lipase < 4 L 8-78 U/L Salicylates Level < 5.0 L 5.0-20.0 MG/DL Acetaminophen Level < 10 L 10-30 UG/ML Serum Alcohol < 10 <10 MG/DL Influenza Type A (RT-PCR) Not Detected Not Detecte Influenza Type B (RT-PCR) Not Detected Not Detecte SARS-CoV-2 RNA (RT-PCR) Not Detected Not Detecte Group A Streptococcus Screen NEGATIVE NEGATIVE Urine Color YELLOW Urine Clarity CLEAR Urine pH 7.0 5-9 Urine Specific Willis 1.025 H 1.016-1.022 Urine Protein 1+ H NEGATIVE Urine Glucose (UA) NEGATIVE NEGATIVE Urine Ketones 2+ H NEGATIVE Urine Nitrite NEGATIVE NEGATIVE Urine Bilirubin NEGATIVE NEGATIVE Urine Urobilinogen 1.0 < = 1.0 MG/DL Urine Leukocyte Esterase NEGATIVE NEGATIVE Urine RBC (Auto) TRACE H NEGATIVE Urine RBC 5-10 H /HPF Urine WBC RARE /HPF Urine Crystals NONE /LPF Urine Bacteria NEGATIVE /HPF Urine Casts NONE /LPF Urine Mucus SMALL H /LPF Urine Culture Indicated NO Urine Opiates Screen NEGATIVE NEGATIVE Urine Oxycodone Screen NEGATIVE NEGATIVE Urine Methadone Screen NEGATIVE NEGATIVE Urine Propoxyphene Screen NEGATIVE NEGATIVE Urine Barbiturates Screen NEGATIVE NEGATIVE Ur Tricyclic Antidepressants Screen NEGATIVE NEGATIVE Urine Phencyclidine Screen NEGATIVE NEGATIVE Urine Amphetamines Screen NEGATIVE NEGATIVE Urine Methamphetamines Screen NEGATIVE NEGATIVE Urine Benzodiazepines Screen NEGATIVE NEGATIVE Urine Cocaine Screen NEGATIVE NEGATIVE Urine Cannabinoids Screen POSITIVE H NEGATIVE My Orders Orders - GRIFFIN GUTIERREZ MD Ondansetron Injection (Ondansetron Inj (8/29/23 08:00) Pantoprazole Injection (Pantoprazole Inj (01/30/23 08:00) Rapid Strep A Screen (01/30/23 07:55) Covid 19 Inhouse Test (01/30/23 07:55) Influenza A And B By Pcr (01/30/23 07:55) Acetaminophen (01/30/23 07:55) Alcohol (01/30/23 07:55) Cbc With Automated Diff (01/30/23 07:55) Comprehensive Metabolic Panel (01/30/23 07:55) Hs C Reactive Protein (01/30/23 07:55) Drug Screen Stat (Urine) (01/30/23 07:55) Lipase (01/30/23 07:55) Magnesium (01/30/23 07:55) Salicylate (01/30/23 07:55) Ua Culture If Indicated (01/30/23 07:55) Ekg Tracing (01/30/23 08:02) Monitor-Rhythm Ecg Trace Only (01/30/23 08:02) Throat Culture Strep A Confirm (01/30/23 07:50) Ed Iv/Invasive Line Start (01/30/23 08:34) Lactated Ringers 1,000 Ml (Lactated Ring (01/30/23 08:45) Chest 1 View, Ap/Pa Only (01/30/23 09:02) Promethazine Injection (Promethazine I (01/30/23 10:00) Ed Admission (Communication) (01/30/23 10:58) Medications Given in ED Current Medications Medications Dose Ordered Sig/Fer Route Start Time Stop Time Status Last Admin Dose Admin Lactated Ringer's 1,000 ml @ 0 mls/hr Q0M ONCE IV 01/30/23 08:45 01/30/23 08:46 DC 01/30/23 08:41 999 MLS/HR Ondansetron HCl 4 mg ONCE ONCE IVP 01/30/23 08:00 01/30/23 08:01 DC 01/30/23 07:59 4 MG Pantoprazole 40 mg ONCE ONCE IV 01/30/23 08:00 01/30/23 08:01 DC 01/30/23 07:59 40 MG Promethazine HCl 12.5 mg ONCE ONCE IVP 01/30/23 10:00 8/29/23 10:01 DC 01/30/23 10:05 12.5 MG Vital Signs/I&O 01/30/23 07:46 Temp 36.4 Pulse 48 Resp 15 B/P (MAP) 165/97 (119) Pulse Ox 99 O2 Delivery Room Air Blood Pressure Mean: 119 Progress Progress Note #1: Time: 08:36 Progress Note Patient was interviewed and examined promptly after arrival. Report was received from EMS. Zofran 4 mg IV had been administered in the ambulance in route. An additional 4 mg IV was ordered along with Protonix 40 mg IV. Progress Note #2: Time: 10:06 Progress Note Patient has some persistent nausea after Zofran. Phenergan 12.5 mg IV is now being administered. I am being careful with the doses and selection of antiemetics given his bradycardia arrhythmia. I have discussed the bradycardia arrhythmia with Dr. Whitaker. He is happy to consult if the patient is admitted but does not feel he needs to be admitted specifically for the bradycardia. Patient desires admission for symptom control. He is still nauseous and seems very uncomfortable. He is alert and able to have a conversation but is somnolent with dulled mentation. Labs have been reviewed and interpreted in their entirety by me. Hyperglycemia with blood sugar of 199 was noted on the CMP. Otherwise the CBC and CMP were clinically unremarkable. CO2 was 23 suggesting patient does not have diabetic ketoacidosis. Urinalysis demonstrated elevated specific gravity of 1.025 and 2+ ketones suggesting poor hydration. Patient has received 2 L of IVF. Toxicology revealed positive cannabis in the urine but was otherwise negative. Influenza and COVID-19 swabs were negative. Patient is feeling very poorly at this time and is requesting observation admission. He has had compliance issues in the past and multiple admissions for DKA. I therefore believe an admission at this time is warranted. Progress Note #3: Time: 11:31 Progress Note There has been no vomiting observed since receiving the Phenergan. Dr. Forst, hospitalist for [facility], accepts admission. Initial ECG Impression Date: Jan 30, 2023 Initial ECG Impression Time: 08:12 Initial ECG Rate: 47 Initial ECG Rhythm: S.Rajendra Comment Sinus bradycardia arrhythmia with no ST elevation or depression. No other abnormal intervals or axis deviation. Diagnostic Imaging Diagonstic Imaging: Xray Plain Films/CT/US/NM/MRI: chest Comments NAME: LYDAI CARUSO JR [facility] REC#: [id number] PT STATUS: REG ER : 1985 PHYSICIAN: GRIFFIN GUTIERREZ MD ADMIT DATE: 01/30/23/ER Signed Date of Exam:01/30/23 CHEST 1 VIEW, AP/PA ONLY Indication: Cough and shortness of air Comparison: 11/13/2021 Findings: No focal airspace disease in the visualized lungs. No pleural effusion or pneumothorax. Normal cardiomediastinal silhouette. Impression: 1. No acute cardiopulmonary process by portable radiography. Dictated by: Dictated on workstation # [id number] Dict: 01/30/23915 Trans: 01/30/23916 [facility] [id number] Interpreted by: LUCIO MANUEL MD Electronically signed by: LUCIO MANUEL MD 01/30/2317 Departure Communication (Admissions) Time/Spoke to Admitting Phy: 10:50 Dr. Frost Time/Spoke to Consulting Phy: 09:47 Dr. Whitaker Impression Primary Impression: Nausea and vomiting Qualified Codes: R11.2 - Nausea with vomiting, unspecified Additional Impressions: Upper abdominal pain Bradyarrhythmia Disposition: ADMITTED INPATIENT Condition: Improved Admissions Decision to Admit Reason: Admit from ER (General) Decision to Admit/Date: Jan 30, 2023 Time/Decision to Admit Time: 09:47 Departure-Patient Inst. Referrals: [facility]/TIMO (PCP/Family) Primary Care Physician Copy Copies To 1: [facility]/GRIFFIN HOU MD Jan 30, 2023 08:24
[2023-01-30 08:25] LABS: ACETAMINOPHEN < 10 UG/ML (10-30)
[2023-01-30] MEDS ORDERED: LACTATED RINGERS 1,000 ML 1,000 ML IV ONE (08:45)
--- NOTE | 2023-01-30 09:18 | Diagnostic Imaging Report ---
CHEST 1 VIEW, AP/PA ONLY Indication: Cough and shortness of air Comparison: 11/13/2021 Findings: No focal airspace disease in the visualized lungs. No pleural effusion or pneumothorax. Normal cardiomediastinal silhouette. Impression: 1. No acute cardiopulmonary process by portable radiography. Dictated by: Dictated on workstation # [id number]
[2023-01-30 09:22] LABS: CLARITY,URINE CLEAR; COLOR,URINE YELLOW
[2023-01-30 09:23] LABS: BACTERIA,URINE NEGATIVE /HPF; BILIRUBIN,URINE NEGATIVE (NEGATIVE); GLUCOSE, URINE (UA) NEGATIVE (NEGATIVE); KETONES,URINE 2+ (NEGATIVE); LEUKOCYTE ESTERASE ,URINE NEGATIVE (NEGATIVE); NITRITE,URINE NEGATIVE (NEGATIVE); PROTEIN,URINE 1+ (NEGATIVE); WBC,URINE RARE /HPF
[2023-01-30 09:25] LABS: AMPHETAMINE SCREEN, URINE NEGATIVE (NEGATIVE); BARBITURATE SCREEN URINE NEGATIVE (NEGATIVE); BENZODIAZEPINES SCREEN URINE NEGATIVE (NEGATIVE); CANNABINOID SCREEN, URINE POSITIVE (NEGATIVE); COCAINE SCREEN URINE NEGATIVE (NEGATIVE); METHADONE STAT NEGATIVE (NEGATIVE); OPIATE SCREEN URINE NEGATIVE (NEGATIVE); OXYCODONE STAT NEGATIVE (NEGATIVE); PROPOXYPHENE STAT NEGATIVE (NEGATIVE); TRICYCLIC ANTIDEPRESSANTS SCRE NEGATIVE (NEGATIVE)
[2023-01-30] MEDS ORDERED: PROMETHAZINE INJ 25 MG/ML VIAL IVP ONE (10:00)
[2023-01-30] MEDS ORDERED: PROMETHAZINE INJ 25 MG/ML VIAL IVP PRN (12:30)
[2023-01-30 12:44] VITALS: BP 144/86
[2023-01-30] MEDS: ENOXAPARIN 40 MG/0.4 ML SYRINGE SC SCH (12:58)
[2023-01-30] MEDS: NS IV 1000 ML 1,000 ML IV SCH ×2 (12:58→20:30)
[2023-01-30 13:17] VITALS: BP 144/86
[2023-01-30] MEDS ORDERED: RT-Ipratropium/Albuterol NEB 3 ML VIAL INH PRN (13:30)
[2023-01-30] MEDS: ONDANSETRON INJECTION 4 MG/2 ML (SDV) IVP PRN ×2 (15:01→22:42)
[2023-01-30 15:53] VITALS: BP 146/93
[2023-01-30] MEDS ORDERED: INSU100I14 SQ (15:56)
[2023-01-30] MEDS ORDERED: DULO30CA49 PO (15:56)
[2023-01-30] MEDS ORDERED: BUPR1FIL3 SL (15:56)
[2023-01-30] MEDS ORDERED: INSU100I10 SQ ×2 (15:56)
[2023-01-30 16:00] VITALS: BP 156/91
[2023-01-30] MEDS ORDERED: KETOROLAC INJ 30 MG/ML VIAL ONE (16:29)
[2023-01-30] MEDS: KETOROLAC INJ 30 MG/ML VIAL IVP PRN ×2 (16:32→22:39)
[2023-01-30 20:00] VITALS: BP 118/77
[2023-01-31] VITALS: BP 101/52
[2023-01-31] MEDS: ONDANSETRON INJECTION 4 MG/2 ML (SDV) IVP PRN ×2 (03:21→08:32)
[2023-01-31] MEDS: NS IV 1000 ML 1,000 ML IV SCH ×2 (03:49→12:31)
[2023-01-31 04:00] VITALS: BP 126/72
[2023-01-31 04:40] LABS: BASOPHILS % (AUTO) 1 % (0-10); EOSINOPHILS % (AUTO) 0 % (0-10); HEMATOCRIT 34 % (40-54); HEMOGLOBIN 11.3 g/dL (13.3-17.7); LYMPHOCYTES # (AUTO) 0.8 10^3/uL (1.0-4.0); LYMPHOCYTES % (AUTO) 11 % (12-44); MEAN CORPUSCULAR HEMOGLOBIN 29 pg (25-34); MEAN CORPUSCULAR HGB CONC 33 g/dL (32-36); MEAN CORPUSCULAR VOLUME 87 fL (80-99); MEAN PLATELET VOLUME 9.5 fL (9.0-12.2); MONOCYTES # (AUTO) 0.5 10^3/uL (0.0-1.0); MONOCYTES % (AUTO) 7 % (0-12); NEUTROPHILS # (AUTO) 5.6 10^3/uL (1.8-7.8); NEUTROPHILS % (AUTO) 81 % (42-75); PLATELET COUNT 169 10^3/uL (130-400)
[2023-01-31 04:51] LABS: ALBUMIN 3.1 GM/DL (3.2-4.5); POTASSIUM 3.3 MMOL/L (3.6-5.0)
[2023-01-31 04:53] LABS: TOTAL PROTEIN 5.3 GM/DL (6.4-8.2)
[2023-01-31 04:55] LABS: BILIRUBIN,TOTAL 0.6 MG/DL (0.1-1.0)
[2023-01-31 04:57] LABS: CREATININE SERUM 0.79 MG/DL (0.60-1.30)
[2023-01-31 08:25] VITALS: BP 135/86
[2023-01-31] MEDS: KETOROLAC INJ 30 MG/ML VIAL IVP PRN (08:32)
[2023-01-31 12:02] VITALS: BP 124/84
[2023-01-31] MEDS ORDERED: AMOX500C2 PO (12:07)
--- NOTE | 2023-01-31 12:08 | Discharge Summary ---
Discharge [facility] Discharge Medications New, Converted or Re-Newed RX: Transmitted to Pharmacy New Medications: Amoxicillin (Amoxicillin) 500 Mg Capsule 500 MG PO TID, #15 CAP Continued Medications: Buprenorphine HCl/Naloxone HCl (Suboxone 8 mg-2 mg Sl Film) 8 Mg-2 Mg Film 1 EACH SL BID, FILM Duloxetine HCl (Duloxetine HCl) 30 Mg Capsule.dr 30 MG PO DAILY, CAP Insulin Aspart (Novolog Flexpen) 100 Unit/Ml (3 Ml) Solution 8 UNITS SQ AC, EA LAST FILLED 11-14-2022 #5 PENS/50 DAY SUPPLY Insulin Glargine,Hum.rec.anlog (Lantus Solostar) 100 Unit/Ml (3 Ml) Insuln.pen 15 UNIT SQ DAILY, EA LAST FILLED 11-14-2022 #10 PENS/50 DAY SUPPLY Insulin Glargine,Hum.rec.anlog (Lantus Solostar) 100 Unit/Ml (3 Ml) Insuln.pen 45 UNIT SQ HS, EA LAST FILLED 11-14-2022 #10 PENS/50 DAY SUPPLY Patient Instructions Goal/Follow Up Appt: Needs to reestablish with PCP for DM management Activity & Diet Discharge Diet: ADA Diet Activity as Tolerated: No ALFRED MORGAN MD Jan 31, 2023 12:08
--- NOTE | 2023-01-31 12:23 | Short Stay Summary ---
YIDIEGO Kevin 01/31/23 1222: History of Present Illness History of Present Illness Reason for visit/HPI Alvaro Ford is a 37 y/o male with a PMH of insulin dependant DM and substance abuse that presented to EMS to the [facility] ED due to persistent vomiting. ~ 3am 01/30 Mr. Ford reports waking up feeling nauseous and shortly after that he starts to vomit. He states he often has N/V but they are limited in duration. This episode continued for markedly longer and he become concerned which prompted him to call for an ambulance. He states he could not remember what his blood sugars were when this started, but this did not feel like a hypo or hyperglycemic episode. States he is complient with his home insulin 40units levemir QPM 8units novalog with meals. Unsure of average blood sugars as his glucometer is not with him, but states he is checking his blood sugar and they are normally "good". No changes in diet, did not eat raw or undercooked meat recently. He previously was smoking up to an oz of marijuana a day before going to rehab, he reports currently smoking one joint a night to help him sleep. N/V improved while at rehab. He reports that he has felt sick the last couple days, mostly throat/ respira tory symptoms, denies fever/ chills, he believes this is the likely cause of the N/V. Date of Admission Jan 30, 2023 at 12:18 Date of Discharge 01/31 Time Seen by Provider: 11:00 Attending Physician [facility] Dr. Morgan Admitting Physician Admitting Physician: Alfred Morgan MD Attending Physician: Alfred Morgan MD Consult Allergies and Home Medications Allergies Coded Allergies: tramadol (Verified Adverse Reaction, Mild, N/V, 12/21/14) Patient Home Medication List Amoxicillin (Amoxicillin) 500 Mg Capsule, 500 MG PO TID Prescribed by: ALFRED MORGAN on 01/31/23 1207 Buprenorphine HCl/Naloxone HCl (Suboxone 8 mg-2 mg Sl Film) 8 Mg-2 Mg Film, 1 EACH SL BID, (Reported) Entered as Reported by: SAMRA MCCORD on 01/30/23 9086 Last Action: Reviewed Duloxetine HCl (Duloxetine HCl) 30 Mg Capsule.dr 30 MG PO DAILY, (Reported) Entered as Reported by: SAMRA MCCORD on 01/30/231555 Last Action: Reviewed Insulin Aspart (Novolog Flexpen) 100 Unit/Ml (3 Ml) Solution, 8 UNITS SQ AC, (Reported) Entered as Reported by: SAMRA MCCORD on 01/30/231555 Last Action: Reviewed Insulin Glargine,Hum.rec.anlog (Lantus Solostar) 100 Unit/Ml (3 Ml) Insuln.pen, 15 UNIT SQ DAILY, (Reported) Entered as Reported by: SAMRA MCCORD on 01/30/231555 Last Action: Reviewed Insulin Glargine,Hum.rec.anlog (Lantus Solostar) 100 Unit/Ml (3 Ml) Insuln.pen, 45 UNIT SQ HS, (Reported) Entered as Reported by: SAMRA MCCORD on 01/30/231555 Last Action: Reviewed Discontinued Medications Clindamycin HCl (Clindamycin HCl) 300 Mg Capsule, 450 MG PO TID Discontinued Reason: No Longer Taking Prescribed by: Jennifer Ugalde on 09/23/22 1539 Last Action: Discontinued Insulin Aspart (Novolog Flexpen) 300 Units/3 Ml Solution, 5-8 UNITS SQ AC, (Reported) Discontinued Reason: No Longer Taking Entered as Reported by: SAMRA MCCORD on 06/07/21 0935 Last Action: Discontinued Insulin Detemir (Levemir Flextouch) 100 Unit/1 Ml Insuln.pen, 45 UNIT SQ HS, (Reported) Discontinued Reason: No Longer Taking Entered as Reported by: SAMRA MCCORD on 08/02/21 1522 Last Action: Discontinued Metoclopramide HCl (Reglan) 10 Mg Tablet, 10 MG PO Q6H PRN for nausea Discontinued Reason: No Longer Taking Prescribed by: JG VILLAVICENCIO on 04/07/22 1422 Last Action: Discontinued Ondansetron (Ondansetron Odt) 8 Mg Tab.rapdis, 8 MG SL Q6H PRN for NAUSEA/VOMITING Discontinued Reason: No Longer Taking Prescribed by: Chapo Crews on 07/10/22 1335 Last Action: Discontinued Ondansetron (Ondansetron Odt) 4 Mg Tab.rapdis, 4 MG SL Q6H PRN for NAUSEA/VOMITING Discontinued Reason: No Longer Taking Prescribed by: NEVIN SAGASTUME on 07/11/22 1128 Last Action: Discontinued Ondansetron (Ondansetron Odt) 4 Mg Tab.rapdis, 4 MG SL Q4H PRN for NAUSEA/VOMITING Discontinued Reason: No Longer Taking Prescribed by: Jennifer Ugalde on 09/23/22 1538 Last Action: Discontinued Pantoprazole Sodium (Pantoprazole Sodium) 40 Mg Tablet.dr, 40 MG PO DAILY, (Reported) Discontinued Reason: No Longer Taking Entered as Reported by: SAMRA MCCORD on 06/07/21 0935 Last Action: Discontinued Promethazine HCl (Promethazine Suppository) 25 Mg Supp.rect, 25 MG RC Q8H Discontinued Reason: No Longer Taking Prescribed by: Chapo Crews on 07/10/22 1335 Last Action: Discontinued Sucralfate (Carafate) 1 Gm Tablet, 1 GM PO ACHS, (Reported) Discontinued Reason: No Longer Taking Entered as Reported by: SAMRA MCCORD on 06/07/21934 Last Action: Discontinued Past Rmnqxxm-Dmauxn-Cohkuj Hx Patient Social History Drug of Choice: POT Smoking Status: Former Smoker Former Smoker, Quit: Aug 14, 2017 2nd Hand Smoke Exposure: No Recent Hopitalizations: No Alcohol Use?: No Substance type: Marijuana Pt feels they are or have been: No Tobacco type used: Cigarettes Immunizations Up To Date Tetanus Booster (TDap): Unknown Date of Pneumonia Vaccine: Aug 27, 2011 Date of Influenza Vaccine: Apr 04, 2021 Seasonal Allergies Seasonal Allergies: No Surgeries Yes Abdominal, Gallbladder Respiratory Yes (copd dx by patient) Currently Using CPAP: No Currently Using BIPAP: No Cardiovascular Yes Hypertension Neurological Yes Neuropathy Reproductive System Hx Reproductive Disorders: No Sexually Transmitted Disease: No HIV/AIDS: No Genitourinary Yes Kidney Infection Gastrointestinal Yes (ELEVATED LIVER ENZYMES, Hep A; CANNIBIS HYPEREMESIS; ) Gastroesophageal Reflux, Liver Disease/Jaundice, Esophagitis Musculoskeletal Yes Arthritis, Scoliosis, Chronic Back Pain Endocrine History of Endocrine Disorders: Yes (Type I) Endocrine Disorders: Diabetes, Insulin dep HEENT History of HEENT Disorders: No Hearing Impairment: Denies Cancer No Psychosocial History of Psychiatric Problem: Yes (POLYSUBSTANCE ABUSE) Behavioral Health Disorders: Depression Integumentary History of Skin or Integumenta: No Blood Transfusions History of Blood Disorders: No Adverse Reaction to a Blood Tr: No Family Medical History Significant Family History: Heart Disease, Diabetes, Hypertension Other Significan Family Hx: SOCIAL HISTORY: -SMOKES 1 PPD -History of DRUGS--+ IV METH USE, COCAINE USE, THC, RX DRUGS--ESPECIALLY HYDROCODONE AND ADDERALL -History of ETOH--HEAVY REGULAR/DAILY USE Family Hx: Alcoholism 19 FATHER G8 BROTHER Congenital heart disease 19 FATHER Family history: Cardiovascular disease 19 FATHER, Onset:40's - 50 Family history: Diabetes mellitus 19 MOTHER Family history: Hypertension 19 FATHER Heart disease 19 FATHER History of - respiratory disease 19 FATHER History of drug abuse 19 MOTHER Hypercholesterolemia 19 FATHER Myocardial infarction 19 FATHER Seizure disorder 19 FATHER No Family History of: Abdominal aortic aneurysm Markos's disease Cancer Congestive heart failure Cystic fibrosis Dementia Dysphagia Family history: Allergy Family history: Alzheimer's disease Family history: Arthritis Family history: Asthma Family history: Breast disease Family history: Coronary thrombosis Family history: Gastrointestinal disease Family history: Glaucoma Family history: Osteoporosis Family history: Thyroid disorder Headache Hearing loss Hereditary disease History of - anemia History of - disorder Human immunodeficiency virus (HIV) seropositivity Infertile Kidney disease Malignant neoplasm of lung Parkinson's disease Prostate cancer Psychotic disorder Stroke Tuberculosis Visual impairment Review of Systems Constitutional: see HPI EENTM: see HPI Respiratory: see HPI Cardiovascular: no symptoms reported Gastrointestinal: RUQ, LUQ, RLQ, LLQ, abdominal pain; No constipation, No diarrhea, No hematemesis, No jaundice; loss of appetite; No melena; nausea, vomiting Genitourinary: no symptoms reported Musculoskeletal: no symptoms reported Skin: no symptoms reported Psychiatric/Neurological: No Symptoms Reported Physical Exam Vital Signs Vital Signs - First Documented 01/30/23 07:46 Temp 36.4 Pulse 48 Resp 15 B/P (MAP) 165/97 (119) Pulse Ox 99 O2 Delivery Room Air Capillary Refill : Height, Weight, BMI Height: 5'10.00" Weight: 240lbs. 0oz. 108.006862xl; 24.85 BMI Method:Stated Eyes: Bilateral Eye Normal Inspection HEENT: Moist Mucous Membranes, Pharyngeal Erythema; No Scleral Icterus (L), No Scleral Icterus (R) Neck: Full Range of Motion; No Lymphadenopathy (L), No Lymphadenopathy (R) Respiratory: Chest Non Tender, Wheezing (R>L ) Cardiovascular: Regular Rate, Rhythm, Normal Peripheral Pulses; No Bradycardia Gastrointestinal: Normal Bowel Sounds, Other (Patient refused abd exam due to pain, informed him that it was important to complete so as to better identify possible causes of N/ V, Patient defered the exam. ) Extremity: Normal Capillary Refill, Normal Inspection Neurologic/Psychiatric: Alert, Oriented x3 Skin: Normal Color, Warm/Dry Short Stay Diagnosis Discharge Diagnosis-Short Stay Admission Diagnosis: Nausea and Vomiting, unknown cause Final Discharge Diagnosis: Nausea vomiting, unknown cause, presumed pharyngitis. Conclusion Labs Laboratory Tests 01/30/23 17:49: Glucometer 116H 01/31/23 04:30: White Blood Count 7.0, Red Blood Count 3.91L, Hemoglobin 11.3L, Hematocrit 34L, Mean Corpuscular Volume 87, Mean Corpuscular Hemoglobin 29, Mean Corpuscular Hemoglobin Concent 33, Red Cell Distribution Width 12.7, Platelet Count 169, Mean Platelet Volume 9.5, Immature Granulocyte % (Auto) 0, Neutrophils (%) (Auto) 81H, Lymphocytes (%) (Auto) 11L, Monocytes (%) (Auto) 7, Eosinophils (%) (Auto) 0, Basophils (%) (Auto) 1, Neutrophils # (Auto) 5.6, Lymphocytes # (Auto) 0.8L, Monocytes # (Auto) 0.5, Eosinophils # (Auto) 0.0, Basophils # (Auto) 0.0, Immature Granulocyte # (Auto) 0.0, Sodium Level 140, Potassium Level 3.3L, Chloride Level 109H, Carbon Dioxide Level 21, Anion Gap 10, Blood Urea Nitrogen 22H, Creatinine 0.79, Estimat Glomerular Filtration Rate 119, BUN/Creatinine Ratio 28, Glucose Level 44*L, Calcium Level 8.0L, Corrected Calcium 8.7, Total Bilirubin 0.6, Aspartate Amino Transf (AST/SGOT) 89H, Alanine Aminotransferase (ALT/SGPT) 127H, Alkaline Phosphatase 90, Total Protein 5.3L, Albumin 3.1L 01/31/23 05:44: Glucometer 73 Microbiology 01/30/23 Throat Culture - Preliminary, Resulted No Beta Strep isolated Conclusion/Plan Mr. Ford is a 37 y/o male who presented to [facility] ED due to persistent N/V. Incidentally found to be bradycardic on admission, with HRs in the 40's, asymptomatic. He has a history of substance abuse, currently taking suboxone and DM requiring insulin. He was given anti emetics and tordol in the ED, and continued PRN while on the floor. Had one episode of hypoglycemia 8/30 AM, which improved with PO intake. Nausea Vomiting - has improved with Zofran a phenergan PLAN > PO zofran PRN at home > Discussed marijuana hyperemesis as possible contributing factor to N/V. > discussed the need to reestablish with PCP for DM management as poorly controlled BS can induce N/V possible pharyngitis- -erythema on PE - given N/V low threshold to treat PLAN > azithromycin 500mg day 1. 250mg days 2-5 Bradycardia - asymptomatic bradycardia on admission HR 40's PLAN - FU with PCP - Return if SOB/ lightheaded Diego Omalley MS4 Copy Copies To 1: ALFRED MORGAN MD, HOLLY R MD 01/31/23 2167: Allergies and Home Medications Allergies Coded Allergies: tramadol (Verified Adverse Reaction, Mild, N/V, 12/21/14) Patient Home Medication List Home Medication List Reviewed: Yes Amoxicillin (Amoxicillin) 500 Mg Capsule, 500 MG PO TID Prescribed by: ALFRED MORGAN on 01/31/23 1207 Buprenorphine HCl/Naloxone HCl (Suboxone 8 mg-2 mg Sl Film) 8 Mg-2 Mg Film, 1 EACH SL BID, (Reported) Entered as Reported by: SAMRA MCCORD on 01/30/231555 Last Action: Reviewed Duloxetine HCl (Duloxetine HCl) 30 Mg Capsule.dr, 30 MG PO DAILY, (Reported) Entered as Reported by: SAMRA MCCORD on 01/30/231555 Last Action: Reviewed Insulin Aspart (Novolog Flexpen) 100 Unit/Ml (3 Ml) Solution, 8 UNITS SQ AC, (Reported) Entered as Reported by: SAMRA MCCORD on 01/30/231555 Last Action: Reviewed Insulin Glargine,Hum.rec.anlog (Lantus Solostar) 100 Unit/Ml (3 Ml) Insuln.pen, 15 UNIT SQ DAILY, (Reported) Entered as Reported by: SAMRA MCCORD on 01/30/231555 Last Action: Reviewed Insulin Glargine,Hum.rec.anlog (Lantus Solostar) 100 Unit/Ml (3 Ml) Insuln.pen, 45 UNIT SQ HS, (Reported) Entered as Reported by: SAMRA MCCORD on 01/30/23 1556 Last Action: Reviewed Discontinued Medications Clindamycin HCl (Clindamycin HCl) 300 Mg Capsule, 450 MG PO TID Discontinued Reason: No Longer Taking Prescribed by: Jennifer Ugalde on 09/23/22 1539 Last Action: Discontinued Insulin Aspart (Novolog Flexpen) 300 Units/3 Ml Solution, 5-8 UNITS SQ AC, (Reported) Discontinued Reason: No Longer Taking Entered as Reported by: SAMRA MCCORD on 06/07/21 0935 Last Action: Discontinued Insulin Detemir (Levemir Flextouch) 100 Unit/1 Ml Insuln.pen, 45 UNIT SQ HS, (Reported) Discontinued Reason: No Longer Taking Entered as Reported by: SAMRA MCCORD on 08/02/21 1522 Last Action: Discontinued Metoclopramide HCl (Reglan) 10 Mg Tablet, 10 MG PO Q6H PRN for nausea Discontinued Reason: No Longer Taking Prescribed by: JG VILLAVICENCIO on 04/07/22 1422 Last Action: Discontinued Ondansetron (Ondansetron Odt) 8 Mg Tab.rapdis, 8 MG SL Q6H PRN for NAUSEA/VOMITING Discontinued Reason: No Longer Taking Prescribed by: Chapo Crews on 07/10/22 1335 Last Action: Discontinued Ondansetron (Ondansetron Odt) 4 Mg Tab.rapdis, 4 MG SL Q6H PRN for NAUSEA/VOMITING Discontinued Reason: No Longer Taking Prescribed by: NEVIN SAGASTUME on 07/11/22 1128 Last Action: Discontinued Ondansetron (Ondansetron Odt) 4 Mg Tab.rapdis, 4 MG SL Q4H PRN for NAUSEA/V OMITING Discontinued Reason: No Longer Taking Prescribed by: Jennifer Ugalde on 09/23/22 1538 Last Action: Discontinued Pantoprazole Sodium (Pantoprazole Sodium) 40 Mg Tablet.dr, 40 MG PO DAILY, (Reported) Discontinued Reason: No Longer Taking Entered as Reported by: SAMRA MCCORD on 06/07/21 0935 Last Action: Discontinued Promethazine HCl (Promethazine Suppository) 25 Mg Supp.rect, 25 MG RC Q8H Discontinued Reason: No Longer Taking Prescribed by: Chapo Crews on 07/10/22 1335 Last Action: Discontinued Sucralfate (Carafate) 1 Gm Tablet, 1 GM PO ACHS, (Reported) Discontinued Reason: No Longer Taking Entered as Reported by: SAMRA MCCORD on 06/07/21 0935 Last Action: Discontinued Past Dyopgoj-Kukymn-Fvbvip Hx Family Medical History Family Hx: Alcoholism 19 FATHER G8 BROTHER Congenital heart disease 19 FATHER Family history: Cardiovascular disease 19 FATHER, Onset:40's - 50 Family history: Diabetes mellitus 19 MOTHER Family history: Hypertension 19 FATHER Heart disease 19 FATHER History of - respiratory disease 19 FATHER History of drug abuse 19 MOTHER Hypercholesterolemia 19 FATHER Myocardial infarction 19 FATHER Seizure disorder 19 FATHER No Family History of: Abdominal aortic aneurysm [place]'s disease Cancer Congestive heart failure Cystic fibrosis Dementia Dysphagia Family history: Allergy Family history: Alzheimer's disease Family history: Arthritis Family history: Asthma Family history: Breast disease Family history: Coronary thrombosis Family history: Gastrointestinal disease Family history: Glaucoma Family history: Osteoporosis Family history: Thyroid disorder Headache Hearing loss Hereditary disease History of - anemia History of - disorder Human immunodeficiency virus (HIV) seropositivity Infertile Kidney disease Malignant neoplasm of lung Parkinson's disease Prostate cancer Psychotic disorder Stroke Tuberculosis Visual impairment Review of Systems Constitutional: no symptoms reported; No chills; dizziness; No fever EENTM: throat pain, throat swelling Respiratory: no symptoms reported; No cough, No dyspnea on exertion, No short of breath Cardiovascular: no symptoms reported; No chest pain, No palpitations Gastrointestinal: No abdominal pain; loss of appetite, nausea; No vomiting Genitourinary: no symptoms reported Musculoskeletal: no symptoms reported Skin: no symptoms reported Psychiatric/Neurological: No Symptoms Reported Physical Exam General Appearance: No Apparent Distress, WD/WN HEENT: PERRL/EOMI, Pharyngeal Erythema, Tonsillar Enlargement Neck: Non Tender, Supple Respiratory: Chest Non Tender, Lungs Clear, Normal Breath Sounds, No Accessory Muscle Use, No Respiratory Distress Cardiovascular: Regular Rate, Rhythm, No Edema, No Murmur Gastrointestinal: Normal Bowel Sounds, Non Tender, Soft Back: No CVA Tenderness, No Vertebral Tenderness Extremity: Normal Range of Motion, Non Tender, No Calf Tenderness, No Pedal Edema Neurologic/Psychiatric: Alert, Oriented x3, No Motor/Sensory Deficits, Normal Mood/Affect, stock broker II-XII Norm as Tested Skin: Normal Color, Warm/Dry Lymphatic: Other (Right cervical LN) Copy Copies To 1: ALFRED MORGAN MD Supervisory-Addendum Brief Verification & Attestation Participated in pt care: history, physical Personally performed: exam, history Care discussed with: Medical Student Procedures: n/a Verification and Attestation of Medical Student E/M Service A medical student performed and documented this service in my presence. I reviewed and verified all information documented by the medical student and made modifications to such information, when appropriate. I personally performed the physical exam and medical decision making. Alfred Morgan, Jan 31, 2023,16:23 Agree with above, in addition N/V Pharyngitis Bradycardia IDDM Substance abuse d/o - D/c home with antibiotics and zofran - Discussed importance of re establishing for DM management - F/u with Billy for suboxone DIEGO OMALLEY Jan 31, 2023 12:22 ALFRED MORGAN MD Jan 31, 2023 16:25
[2023-01-31] MEDS: ENOXAPARIN 40 MG/0.4 ML SYRINGE SC SCH (12:31)
[2023-01-31] MEDS ORDERED: AMOXICILLIN 500 MG CAPSULE PO SCH ×2 (13:00→21:00)
[2023-02-01] MEDS ORDERED: PROM25TA14 PO (14:44)
[2023-02-01] MEDS ORDERED: ONDA4TAB11 SL (14:44)
[2023-02-01] MEDS ORDERED: PANT40TA2 PO (14:45)
== END 2023-01-31 12:15 | disposition home or self-care (01) ==
LOC: EDUNIT# 07:40 → ER 07:42 → UNDOADMOB 12:18 → CSD 12:18 → UNDODISOB 01-31 12:15
PROVIDERS: ADMIT Family Medicine; ATTEND Family Medicine
DX: R11.2 Nausea with vomiting, unspecified (principal); J02.9 Acute pharyngitis, unspecified; R00.1 Bradycardia, unspecified; E10.9 Type 1 diabetes mellitus without complications; Z79.4 Long term (current) use of insulin; F12.10 Cannabis abuse, uncomplicated; Z87.891 Personal history of nicotine dependence
CPT/HCPCS: 71045; 80053 ×2; 80306; 81000; 82947 ×2; 83690; 83735; 85025 ×2; 86141; 87430; 87636; 93005; 96372; 96374; 96375 ×2; 96376 ×2; 99284; G0378; G0480 ×3; 36415; 80320; 80329

== ENCOUNTER 2023-02-01 11:21 | Emergency (ER) | payer SELFPAY ==
[~2023-02-01 11:21] MED LIST changes: +BUPR1FIL3 SL; +DULO30CA49 PO
[2023-02-01] MEDS ORDERED: ONDANSETRON INJECTION 4 MG/2 ML (SDV) IVP ONE (11:45)
[2023-02-01] MEDS ORDERED: NS IV 1000 ML 1,000 ML IV SCH (11:45)
[2023-02-01 12:05] LABS: BASOPHILS % (AUTO) 0 % (0-10); EOSINOPHILS % (AUTO) 0 % (0-10); HEMATOCRIT 34 % (40-54); HEMOGLOBIN 11.4 g/dL (13.3-17.7); LYMPHOCYTES # (AUTO) 0.8 10^3/uL (1.0-4.0); LYMPHOCYTES % (AUTO) 15 % (12-44); MEAN CORPUSCULAR HEMOGLOBIN 29 pg (25-34); MEAN CORPUSCULAR HGB CONC 33 g/dL (32-36); MEAN CORPUSCULAR VOLUME 87 fL (80-99); MEAN PLATELET VOLUME 9.8 fL (9.0-12.2); MONOCYTES # (AUTO) 0.3 10^3/uL (0.0-1.0); MONOCYTES % (AUTO) 5 % (0-12); NEUTROPHILS # (AUTO) 4.3 10^3/uL (1.8-7.8); NEUTROPHILS % (AUTO) 79 % (42-75); PLATELET COUNT 148 10^3/uL (130-400); WHITE BLOOD COUNT 5.4 10^3/uL (4.3-11.0)
[2023-02-01] MEDS ORDERED: PANTOPRAZOLE INJECTION 40 MG VIAL IV ONE (12:30)
[2023-02-01] MEDS ORDERED: PROMETHAZINE INJ 25 MG/ML VIAL IVP ONE (12:30)
[2023-02-01 12:36] LABS: ALANINE AMINOTRANSFERASE 166 U/L (0-55); ALBUMIN 3.7 GM/DL (3.2-4.5); ALKALINE PHOSPHATASE 144 U/L (40-136); BILIRUBIN,TOTAL 0.7 MG/DL (0.1-1.0); BUN/CREATININE RATIO 26; CALCIUM 8.4 MG/DL (8.5-10.1); CARBON DIOXIDE 21 MMOL/L (21-32); CHLORIDE 102 MMOL/L (98-107); CREATININE SERUM 0.82 MG/DL (0.60-1.30); GFR ESTIMATED 117; GLUCOSE 249 MG/DL (70-105); LIPASE < 4 U/L (8-78); MAGNESIUM 2.1 MG/DL (1.6-2.4); POTASSIUM 4.1 MMOL/L (3.6-5.0); SODIUM 134 MMOL/L (135-145); TOTAL PROTEIN 6.2 GM/DL (6.4-8.2)
[2023-02-01 14:15] LABS: INR 1.1 (0.8-1.4)
--- NOTE | 2023-02-01 14:40 | ED General ---
General Chief Complaint: Abdominal/GI Problems Stated Complaint: NAUSEA, DRY HEAVING, VOMITING SINCE 4 AM Nursing Triage Note: PT AMB TO RM 9 WITH C/O NAUSEA, VOMITTING SINCE DISCHARGE FROM ICU YESTEDAY. PT STATES HE DID NOT HAVE ANY NAUSEA MEDS TO TAKE HOME OR ALL OF HIS INSULIN LAST NIGHT Source of Information: Patient Exam Limitations: No Limitations History of Present Illness Date Seen by Provider: Feb 01, 2023 Time Seen by Provider: 11:36 Initial Comments This 37-year-old man presents to the emergency room with complaints of nausea and vomiting since being discharged from the hospital yesterday. He was admitted 2 days ago for nausea vomiting, abdominal discomfort, excessive somnol ence and sinus bradycardia arrhythmia. He was discharged yesterday and treated with amoxicillin for possible pharyngitis. He does not have any antiemetic medications at home and became nauseated and started dry heaving again. He presents to the emergency room in an overall improved condition but with persistent nausea and dry heaving. He denies any fever. He does take Suboxone which is managed by the [facility] clinic. He denies any present alcohol use. He occasionally uses marijuana. He has type 1 diabetes. See notes from ER visit 2 days ago and admission for more details. Allergies and Home Medications Allergies Coded Allergies: tramadol (Verified Adverse Reaction, Mild, N/V, 02/01/23) Patient Home Medication List Home Medication List Reviewed: Yes Amoxicillin (Amoxicillin) 500 Mg Capsule, 500 MG PO TID Prescribed by: ALFRED MORGAN on 01/31/23 1207 Buprenorphine HCl/Naloxone HCl (Suboxone 8 mg-2 mg Sl Film) 8 Mg-2 Mg Film, 1 EACH SL BID, (Reported) Entered as Reported by: SAMRA MCCORD on 01/30/23 155 Duloxetine HCl (Duloxetine HCl) 30 Mg Capsule.dr, 30 MG PO DAILY, (Reported) Entered as Reported by: SAMRA MCCORD on 01/30/23 155 Insulin Aspart (Novolog Flexpen) 100 Unit/Ml (3 Ml) Solution, 8 UNITS SQ AC, (Reported) Entered as Reported by: SAMRA MCCORD on 01/30/23 155 Insulin Glargine,Hum.rec.anlog (Lantus Solostar) 100 Unit/Ml (3 Ml) Insuln.pen, 15 UNIT SQ DAILY, (Reported) Entered as Reported by: SAMRA MCCORD on 01/30/23 1556 Insulin Glargine,Hum.rec.anlog (Lantus Solostar) 100 Unit/Ml (3 Ml) Insuln.pen, 45 UNIT SQ HS, (Reported) Entered as Reported by: SAMRA MCCORD on 01/30/23 1556 Ondansetron (Ondansetron Odt) 4 Mg Tab.rapdis, 4 MG SL Q4H PRN for NAUSEA/VOMITING Prescribed by: GRIFFIN MURO on 02/01/23 1444 Pantoprazole Sodium (Protonix) 40 Mg Tablet.dr, 40 MG PO DAILY Prescribed by: GRIFFIN MURO on 02/01/23 1445 Promethazine HCl (Promethazine Tablet) 25 Mg Tablet, 25 MG PO Q8H PRN for NAUSEA-2ND LINE Prescribed by: GRIFFIN MURO on 02/01/23 1444 Discontinued Medications Clindamycin HCl (Clindamycin HCl) 300 Mg Capsule, 450 MG PO TID Discontinued Reason: No Longer Taking Prescribed by: Jennifer Ugalde on 09/23/22 1539 Insulin Aspart (Novolog Flexpen) 300 Units/3 Ml Solution, 5-8 UNITS SQ AC, (Reported) Discontinued Reason: No Longer Taking Entered as Reported by: SAMRA MCCORD on 06/07/21 0935 Insulin Detemir (Levemir Flextouch) 100 Unit/1 Ml Insuln.pen, 45 UNIT SQ HS, (Reported) Discontinued Reason: No Longer Taking Entered as Reported by: ASMRA MCCORD on 08/02/21 1522 Metoclopramide HCl (Reglan) 10 Mg Tablet, 10 MG PO Q6H PRN for nausea Discontinued Reason: No Longer Taking Prescribed by: JG VILLAVICENCIO on 04/07/22 1422 Ondansetron (Ondansetron Odt) 8 Mg Tab.rapdis, 8 MG SL Q6H PRN for NAUSEA/VOMITING Discontinued Reason: No Longer Taking Prescribed by: Chapo Crews on 07/10/22 1335 Ondansetron (Ondansetron Odt) 4 Mg Tab.rapdis, 4 MG SL Q6H PRN for NAUSEA/VOMITING Discontinued Reason: No Longer Taking Prescribed by: NEVIN SAGASTUME on 07/11/22 1128 Ondansetron (Ondansetron Odt) 4 Mg Tab.rapdis, 4 MG SL Q4H PRN for NAUSEA/VOMITING Discontinued Reason: No Longer Taking Prescribed by: Jennifer Ugalde on 09/23/22 1538 Pantoprazole Sodium (Pantoprazole Sodium) 40 Mg Tablet.dr, 40 MG PO DAILY, (Reported) Discontinued Reason: No Longer Taking Entered as Reported by: SAMRA CMCORD on 06/07/21 0935 Promethazine HCl (Promethazine Suppository) 25 Mg Supp.rect, 25 MG RC Q8H Discontinued Reason: No Longer Taking Prescribed by: Chapo Crews on 07/10/22 1335 Sucralfate (Carafate) 1 Gm Tablet, 1 GM PO ACHS, (Reported) Discontinued Reason: No Longer Taking Entered as Reported by: SAMRA MCCORD on 06/07/21 0935 Review of Systems Review of Systems Constitutional: no symptoms reported EENTM: see HPI Respiratory: no symptoms reported Cardiovascular: no symptoms reported Gastrointestinal: see HPI Genitourinary: no symptoms reported Musculoskeletal: no symptoms reported Skin: no symptoms reported Psychiatric/Neurological: No Symptoms Reported Hematologic/Lymphatic: No Symptoms Reported Past Rdbpytu-Eonzjn-Vcayen Hx Patient Social History Tobacco Use?: No Use of E-Cig and/or Vaping dev: Yes E-Cig or Vaping type used: Nicotine Additional E-Cig or Vaping: NICOTINE PATCHES Substance use?: Yes Substance type: Marijuana Alcohol Use?: No Pt feels they are or have been: No Immunizations Up To Date Tetanus Booster (TDap): Unknown First/Initial COVID19 Vaccinat: 2020 Second COVID19 Vaccination Kumar: 2020 Third COVID19 Vaccination Date: UNK Seasonal Allergies Seasonal Allergies: No Past Medical History Surgery/Hospitalization HX: GALLBLADDER, DM Surgeries: Yes Abdominal, Gallbladder Respiratory: Yes (copd dx by patient) COPD Currently Using CPAP: No Currently Using BIPAP: No Cardiac: Yes Hypertension Neurological: Yes Neuropathy Reproductive Disorders: No Sexually Transmitted Disease: No HIV/AIDS: No Genitourinary: Yes Kidney Infection Gastrointestinal: Yes (ELEVATED LIVER ENZYMES, Hep A; CANNIBIS HYPEREMESIS; ) Gastroesophageal Reflux, Liver Disease/Jaundice, Esophagitis Musculoskeletal: Yes Arthritis, Scoliosis, Chronic Back Pain Endocrine: Yes (Type I) Diabetes, Insulin dep HEENT: No Hearing Impairment: Denies Cancer: No Psychosocial: Yes (POLYSUBSTANCE ABUSE) Depression Integumentary: No Blood Disorders: No Adverse Reaction/Blood Tranf: No Family Medical History Alcoholism 19 FATHER G8 BROTHER Congenital heart disease 19 FATHER Family history: Cardiovascular disease 19 FATHER, Onset:40's - 50 Family history: Diabetes mellitus 19 MOTHER Family history: Hypertension 19 FATHER Heart disease 19 FATHER History of - respiratory disease 19 FATHER History of drug abuse 19 MOTHER Hypercholesterolemia 19 FATHER Myocardial infarction 19 FATHER Seizure disorder 19 FATHER No Family History of: Abdominal aortic aneurysm Maroks's disease Cancer Congestive heart failure Cystic fibrosis Dementia Dysphagia Family history: Allergy Family history: Alzheimer's disease Family history: Arthritis Family history: Asthma Family history: Breast disease Family history: Coronary thrombosis Family history: Gastrointestinal disease Family history: Glaucoma Family history: Osteoporosis Family history: Thyroid disorder Headache Hearing loss Hereditary disease History of - anemia History of - disorder Human immunodeficiency virus (HIV) seropositivity Infertile Kidney disease Malignant neoplasm of lung Parkinson's disease Prostate cancer Psychotic disorder Stroke Tuberculosis Visual impairment Heart Disease, Diabetes, Hypertension SOCIAL HISTORY: -SMOKES 1 PPD -History of DRUGS--+ IV METH USE, COCAINE USE, THC, RX DRUGS--ESPECIALLY HYDROCODONE AND ADDERALL -History of ETOH--HEAVY REGULAR/DAILY USE Physical Exam Vital Signs Vital Signs - First Documented 02/01/23 11:28 Temp 36.0 Pulse 45 Resp 14 B/P (MAP) 169/91 (117) Pulse Ox 98 O2 Delivery Room Air Capillary Refill : Height, Weight, BMI Height: 5'10.00" Weight: 240lbs. 0oz. [id number]; 24.85 BMI Method:Stated General Appearance: No Apparent Distress, WD/WN HEENT: PERRL/EOMI, Normal ENT Inspection Neck: Normal Inspection Respiratory: Lungs Clear, Normal Breath Sounds, No Accessory Muscle Use Cardiovascular: Regular Rate, Rhythm, No Edema, No Murmur Gastrointestinal: Normal Bowel Sounds, Soft; No Distended; Tenderness (Mild in the epigastrium) Extremity: Normal Inspection, No Pedal Edema Neurologic/Psychiatric: Alert, Oriented x3, No Motor/Sensory Deficits, Normal Mood/Affect Skin: Normal Color, Warm/Dry Progress/Results/Core Measures Suspected Sepsis SIRS Temperature: Pulse: 45 Respiratory Rate: 14 Laboratory Tests 02/01/23 11:50: White Blood Count 5.4 Blood Pressure 169 /91 Mean: 117 Laboratory Tests 02/01/23 11:50: Creatinine 0.82, INR Comment 1.1, Platelet Count 148, Total Bilirubin 0.7 Results/Orders Lab Results Laboratory Tests Test 02/01/23 11:37 02/01/23 11:50 02/01/23 14:24 Range/Units Glucometer 225 H 70-110 MG/DL White Blood Count 5.4 4.3-11.0 10^3/uL Red Blood Count 3.94 L 4.30-5.52 10^6/uL Hemoglobin 11.4 L 13.3-17.7 g/dL Hematocrit 34 L 40-54 % Mean Corpuscular Volume 87 80-99 fL Mean Corpuscular Hemoglobin 29 25-34 pg Mean Corpuscular Hemoglobin Concent 33 32-36 g/dL Red Cell Distribution Width 12.5 10.0-14.5 % Platelet Count 148 130-400 10^3/uL Mean Platelet Volume 9.8 9.0-12.2 fL Immature Granulocyte % (Auto) 0 % Neutrophils (%) (Auto) 79 H 42-75 % Lymphocytes (%) (Auto) 15 12-44 % Monocytes (%) (Auto) 5 0-12 % Eosinophils (%) (Auto) 0 0-10 % Basophils (%) (Auto) 0 0-10 % Neutrophils # (Auto) 4.3 1.8-7.8 10^3/uL Lymphocytes # (Auto) 0.8 L 1.0-4.0 10^3/uL Monocytes # (Auto) 0.3 0.0-1.0 10^3/uL Eosinophils # (Auto) 0.0 0.0-0.3 10^3/uL Basophils # (Auto) 0.0 0.0-0.1 10^3/uL Immature Granulocyte # (Auto) 0.0 0.0-0.1 10^3/uL Prothrombin Time 14.0 12.2-14.7 SEC INR Comment 1.1 0.8-1.4 Sodium Level 134 L 135-145 MMOL/L Potassium Level 4.1 3.6-5.0 MMOL/L Chloride Level 102 98-107 MMOL/L Carbon Dioxide Level 21 21-32 MMOL/L Anion Gap 11 5-14 MMOL/L Blood Urea Nitrogen 21 H 7-18 MG/DL Creatinine 0.82 0.60-1.30 MG/DL Estimat Glomerular Filtration Rate 117 BUN/Creatinine Ratio 26 Glucose Level 249 H 70-105 MG/DL Calcium Level 8.4 L 8.5-10.1 MG/DL Corrected Calcium 8.6 8.5-10.1 MG/DL Magnesium Level 2.1 1.6-2.4 MG/DL Total Bilirubin 0.7 0.1-1.0 MG/DL Aspartate Amino Transf (AST/SGOT) 145 H 5-34 U/L Alanine Aminotransferase (ALT/SGPT) 166 H 0-55 U/L Alkaline Phosphatase 144 H 40-136 U/L Total Protein 6.2 L 6.4-8.2 GM/DL Albumin 3.7 3.2-4.5 GM/DL Lipase < 4 L 8-78 U/L Serum Alcohol < 10 <10 MG/DL Hepatitis A IgM Antibody Non-Reactive Non-Reactive Hepatitis B Surface Antigen Non-Reactive Non-Reactive Hepatitis B Core IgM Antibody Non-Reactive Non-Reactive Hepatitis C Antibody Non-Reactive Non-Reactive Monoscreen NEGATIVE NEGATIVE My Orders Orders - GRIFFIN GUTIERREZ MD Cbc With Automated Diff (02/01/23 11:36) Comprehensive Metabolic Panel (02/01/23 11:36) Lipase (02/01/23 11:36) Magnesium (02/01/23 11:36) Ed Iv/Invasive Line Start (02/01/23 11:36) Ns Iv 1000 Ml (Ns Iv 1000 Ml) (02/01/23 11:45) Ondansetron Injection (Ondansetron Inj (02/01/23 11:45) Promethazine Injection (Promethazine I (02/01/23 12:30) Pantoprazole Injection (Pantoprazole Inj (02/01/23 12:30) Hepatitis Panel Acute (02/01/23 12:52) Alcohol (02/01/23 12:52) Protime With Inr (02/01/23 12:52) Monotest (02/01/23 14:21) Medications Given in ED Vital Signs/I&O 02/01/23 02/01/23 11:28 14:58 Temp 36.0 36.0 Pulse 45 65 Resp 14 16 B/P (MAP) 169/91 (117) 134/84 Pulse Ox 98 97 O2 Delivery Room Air Room Air 02/01/23 23:59 Intake Total 1000 ml Balance 1000 ml Capillary Refill : Blood Pressure Mean: 117 Point of Care Testing Finger Stick Blood Glucose: 225 Progress Note : Progress Note Labs were obtained, reviewed, interpreted by me. CBC demonstrated mild anemia and was otherwise unremarkable. CMP was notable for hyperglycemia of 249. Transaminases were elevated with AST of 149, ALT of 166, and alkaline p hosphatase of 144. Bilirubin was normal. Lipase was undetectable. Patient was not in ketoacidosis and had a CO2 of 21. CMP was otherwise unremarkable. INR was 1.1. Patient was treated with 2 L of IV fluid, Zofran, Protonix, and Phenergan with improvement. In comparing his labs with prior trends, I am concerned that he has escalating transaminases. He has not started any new medications but is taking Suboxone which can cause elevated liver enzymes. He has a history of hepatitis A but denies chronic hepatitis. He is insistent that he does not drink alcohol. His toxicology screen is negative for alcohol. I contacted Dr. Morgan, [facility] physician, to ensure patient had appropriate outpatient follow-up. She scheduled him for the [facility] walk-in clinic at 1000 on Sunday morning. Repeat labs will be obtained at that time. See discharge instructions for further discussion. Departure Impression Primary Impression: Nausea and vomiting Qualified Codes: R11.2 - Nausea with vomiting, unspecified Additional Impressions: Upper abdominal pain Elevated liver enzymes Disposition: HOME, SELF-CARE Condition: Improved Departure-Patient Inst. Decision time for Depature: 14:37 Referrals: [facility] (PCP/Family) Primary Care Physician Patient Instructions: Liver Function Test Add. Discharge Instructions: Drink plenty of water to stay well-hydrated. Use Zofran (ondansetron) as prescribed for nausea and vomiting. Use Phenergan as prescribed for a backup nausea medication. Continue amoxicillin for possible strep throat. Your monotest was negative. Continue Protonix as prescribed. Please follow-up at the [facility] walk-in clinic at 10:00 AM on Sunday for a checkup and repeat labs. It is very important that you present for this visit to have your liver enzymes checked again. The cause of your rising liver enzymes is uncertain. It may be related to hepatitis, Suboxone use, or some other cause. You are hepatitis labs are pending at this time. They may be available at this follow-up appointment and should be discussed. Avoid use of marijuana as it may be a trigger for nausea, vomiting, and abdominal pain. These adverse effects of marijuana use may be delayed by several days or even weeks. Return to care if symptoms worsen despite following these instructions. All discharge instructions reviewed with patient and/or family. Voiced understanding. Scripts Pantoprazole Sodium (Protonix) 40 Mg Tablet.dr 40 MG PO DAILY, #30 TAB Prov: GRIFFIN GUTIERREZ MD 02/01/23 Promethazine HCl (Promethazine Tablet) 25 Mg Tablet 25 MG PO Q8H PRN for NAUSEA-2ND LINE, #10 TAB Prov: GRIFFIN GUTIERREZ MD 02/01/23 Ondansetron (Ondansetron Odt) 4 Mg Tab.rapdis 4 MG SL Q4H PRN for NAUSEA/VOMITING, #20 TAB Prov: GRIFFIN GUTIERREZ MD 02/01/23 Copy Copies To 1: ALFRED MORGAN MD, JOSHUA T MD Feb 01, 2023 14:40
[2023-02-01] MEDS ORDERED: PROM25TA14 PO (14:44)
[2023-02-01] MEDS ORDERED: ONDA4TAB11 SL (14:44)
[2023-02-01] MEDS ORDERED: PANT40TA2 PO (14:45)
[2023-02-01 14:58] VITALS: BP 134/84
[2023-02-01 21:38] LABS: HEPATITIS C ANTIBODY C Non-Reactive (Non-Reactive)
== END 2023-02-01 14:58 | disposition home or self-care (01) ==
LOC: EDUNIT# 11:21 → ER 11:24
DX: R11.2 Nausea with vomiting, unspecified (principal); R10.13 Epigastric pain; R79.89 Other specified abnormal findings of blood chemistry; E10.40 Type 1 diabetes mellitus with diabetic neuropathy, unspecified; F17.290 Nicotine dependence, other tobacco product, uncomplicated; F17.210 Nicotine dependence, cigarettes, uncomplicated; Z79.899 Other long term (current) drug therapy; Z86.19 Personal history of other infectious and parasitic diseases
CPT/HCPCS: 80053; 80074; 82947; 83690; 83735; 85025; 85610; 86308; 99284; G0480; 36415; 80320

== ENCOUNTER 2023-04-07 12:05 | Emergency (ER) | payer SELFPAY ==
[~2023-04-07] VITALS: Ht 178 cm; Wt 91.0 kg
[2023-04-07] MEDS ORDERED: PROMETHAZINE INJ 25 MG/ML VIAL IVP ONE (12:30)
[2023-04-07] MEDS ORDERED: NS IV 1000 ML 1,000 ML IV SCH ×2 (12:30→13:30)
[2023-04-07 12:31] LABS: BASOPHILS # (AUTO) 0.1 10^3/uL (0.0-0.1); BASOPHILS % (AUTO) 1 % (0-10); EOSINOPHILS % (AUTO) 0 % (0-10); HEMATOCRIT 41 % (40-54); HEMOGLOBIN 14.1 g/dL (13.3-17.7); LYMPHOCYTES % (AUTO) 23 % (12-44); MEAN CORPUSCULAR HEMOGLOBIN 28 pg (25-34); MEAN CORPUSCULAR HGB CONC 34 g/dL (32-36); MEAN CORPUSCULAR VOLUME 83 fL (80-99); MEAN PLATELET VOLUME 9.1 fL (9.0-12.2); MONOCYTES # (AUTO) 0.3 10^3/uL (0.0-1.0); MONOCYTES % (AUTO) 4 % (0-12); NEUTROPHILS # (AUTO) 6.1 10^3/uL (1.8-7.8); NEUTROPHILS % (AUTO) 72 % (42-75); PLATELET COUNT 263 10^3/uL (130-400); WHITE BLOOD COUNT 8.5 10^3/uL (4.3-11.0)
--- NOTE | 2023-04-07 12:42 | ED GI ---
General Chief Complaint: Abdominal/GI Problems Stated Complaint: VOMITING Nursing Triage Note: DIABETIC PT STATES VOMITING SINCE EARLY SUNDAY MORNING, NOT EATING WELL, SUGAR AT 379 ABOUT 30 MIN LADLER, 5 UNITS INSULIN TAKEN LADLER Source of Information: Patient Exam Limitations: No Limitations History of Present Illness Date Seen by Provider: Apr 07, 2023 Time Seen by Provider: 12:09 Initial Comments 37-year-old male presents to the ER with reports of vomiting starting around 2 AM Sunday morning, 04/06/23. He thinks he vomited approximately 3 times yesterday including when he was dry heaving. He reports generalized abdominal pain. Also reports feeling cold and having profuse sweating. He denies diarrhea and dysuria. Reports that he has had several other episodes similar to this. He reports that they thought it was related to his marijuana use, states that he has stopped using marijuana regularly and it has not helped these episodes. Last use was 3 days ago. He reports that he was also diagnosed with a gastric ulcer, and was told that this might be the cause of his symptoms. He is a type I diabetic, states that his blood sugar was 379 30 minutes prior to arrival and he took 5 units of his fast acting insulin. He has not rechecked his blood sugar. He last took a promethazine this morning around 3 AM. Allergies and Home Medications Allergies Coded Allergies: No Known Drug Allergies (Unverified , 04/07/23) Patient Home Medication List Home Medication List Reviewed: Yes Amoxicillin (Amoxicillin) 500 Mg Capsule, 500 MG PO TID Prescribed by: ALFRED MORGAN on 01/31/23 1207 Buprenorphine HCl/Naloxone HCl (Suboxone 8 mg-2 mg Sl Film) 8 Mg-2 Mg Film, 1 EACH SL BID, (Reported) Entered as Reported by: SAMRA MCCORD on 01/30/23 155 Duloxetine HCl (Duloxetine HCl) 30 Mg Capsule.dr, 30 MG PO DAILY, (Reported) Entered as Reported by: SAMRA MCCORD on 01/30/23 155 Insulin Aspart (Novolog Flexpen) 100 Unit/Ml (3 Ml) Solution, 8 UNITS SQ AC, (Reported) Entered as Reported by: SAMRA MCCORD on 01/30/23 155 Insulin Glargine,Hum.rec.anlog (Lantus Solostar) 100 Unit/Ml (3 Ml) Insuln.pen, 15 UNIT SQ DAILY, (Reported) Entered as Reported by: SAMRA MCCORD on 01/30/23 1556 Insulin Glargine,Hum.rec.anlog (Lantus Solostar) 100 Unit/Ml (3 Ml) Insuln.pen, 45 UNIT SQ HS, (Reported) Entered as Reported by: SAMRA MCCORD on 01/30/23 1556 Ondansetron (Ondansetron Odt) 4 Mg Tab.rapdis, 4 MG SL Q4H PRN for NAUSEA/VOMITING Prescribed by: GRIFFIN MURO on 02/01/23 1444 Ondansetron (Ondansetron Odt) 4 Mg Tab.rapdis, 4 MG SL Q4H PRN for NAUSEA/VOMITING Prescribed by: Jennifer Ugalde on 04/07/23 1509 Pantoprazole Sodium (Protonix) 40 Mg Tablet.dr, 40 MG PO DAILY Prescribed by: GRIFFIN MURO on 02/01/23 1445 Promethazine HCl (Promethazine Tablet) 25 Mg Tablet, 25 MG PO Q8H PRN for NAUSEA-2ND LINE Prescribed by: GRIFFIN MURO on 02/01/23 1444 Promethazine HCl (Promethazine Tablet) 25 Mg Tablet, 25 MG PO Q6H PRN for NAUSEA/VOMITING Prescribed by: Jennifer Ugalde on 04/07/23 1509 Review of Systems Review of Systems Constitutional: see HPI Past Iqnaoxg-[id number]-[id number] Hx Patient Social History Tobacco Use?: No Substance use?: Yes Substance type: Marijuana Alcohol Use?: No Immunizations Up To Date Tetanus Booster (TDap): Unknown First/Initial COVID19 Vaccinat: 2020 Second COVID19 Vaccination Kumar: 2020 Third COVID19 Vaccination Date: UNK Seasonal Allergies Seasonal Allergies: No Past Medical History Surgery/Hospitalization HX: GALLBLADDER, DM, ULCER Surgeries: Yes Abdominal, Gallbladder Respiratory: Yes (copd dx by patient) COPD Currently Using CPAP: No Currently Using BIPAP: No Cardiac: Yes Hypertension Neurological: Yes Neuropathy Reproductive Disorders: No Sexually Transmitted Disease: No HIV/AIDS: No Genitourinary: Yes Kidney Infection Gastrointestinal: Yes (ELEVATED LIVER ENZYMES, Hep A; CANNIBIS HYPEREMESIS; ) Gastroesophageal Reflux, Liver Disease/Jaundice, Esophagitis Musculoskeletal: Yes Arthritis, Scoliosis, Chronic Back Pain Endocrine: Yes (Type I) Diabetes, Insulin dep HEENT: No Hearing Impairment: Denies Cancer: No Psychosocial: Yes (POLYSUBSTANCE ABUSE) Depression Integumentary: No Blood Disorders: No Adverse Reaction/Blood Tranf: No Family Medical History Alcoholism 19 FATHER G8 BROTHER Congenital heart disease 19 FATHER Family history: Cardiovascular disease 19 FATHER, Onset:40's - 50 Family history: Diabetes mellitus 19 MOTHER Family history: Hypertension 19 FATHER Heart disease 19 FATHER History of - respiratory disease 19 FATHER History of drug abuse 19 MOTHER Hypercholesterolemia 19 FATHER Myocardial infarction 19 FATHER Seizure disorder 19 FATHER No Family History of: Abdominal aortic aneurysm [place]'s disease Cancer Congestive heart failure Cystic fibrosis Dementia Dysphagia Family history: Allergy Family history: Alzheimer's disease Family history: Arthritis Family history: Asthma Family history: Breast disease Family history: Coronary thrombosis Family history: Gastrointestinal disease Family history: Glaucoma Family history: Osteoporosis Family history: Thyroid disorder Headache Hearing loss Hereditary disease History of - anemia History of - disorder Human immunodeficiency virus (HIV) seropositivity Infertile Kidney disease Malignant neoplasm of lung Parkinson's disease Prostate cancer Psychotic disorder Stroke Tuberculosis Visual impairment Heart Disease, Diabetes, Hypertension SOCIAL HISTORY: -SMOKES 1 PPD -History of DRUGS--+ IV METH USE, COCAINE USE, THC, RX DRUGS--ESPECIALLY HYDROCODONE AND ADDERALL -History of ETOH--HEAVY REGULAR/DAILY USE Physical Exam Vital Signs Vital Signs - First Documented 04/07/23 12:12 Temp 37.6 Pulse 77 Resp 20 B/P (MAP) 150/96 (114) Pulse Ox 99 O2 Delivery Room Air Capillary Refill : Less Than 3 Seconds Height/Weight/BMI Height: 5'10.00" Weight: 240lbs. 0oz. [id number]; 28.00 BMI Method:Stated General Appearance: WD/WN, mild distress HEENT: other (Possible ketone odor noted to breath) Neck: supple, normal inspection Respiratory: lungs clear, normal breath sounds, no respiratory distress, no accessory muscle use Cardiovascular: regular rate, rhythm Gastrointestinal: normal bowel sounds, soft; No guarding; tenderness (Generalized) Extremities: normal range of motion, normal inspection Neurologic/Psychiatric: alert, normal mood/affect Skin: normal color, warm/dry Progress/Results/Core Measures Results/Orders Lab Results Laboratory Tests Test 04/07/23 12:12 04/07/23 12:16 04/07/23 13:46 04/07/23 14:41 Range/Units White Blood Count 8.5 4.3-11.0 10^3/uL Red Blood Count 4.99 4.30-5.52 10^6/uL Hemoglobin 14.1 13.3-17.7 g/dL Hematocrit 41 40-54 % Mean Corpuscular Volume 83 80-99 fL Mean Corpuscular Hemoglobin 28 25-34 pg Mean Corpuscular Hemoglobin Concent 34 32-36 g/dL Red Cell Distribution Width 12.0 10.0-14.5 % Platelet Count 263 130-400 10^3/uL Mean Platelet Volume 9.1 9.0-12.2 fL Immature Granulocyte % (Auto) 0 % Neutrophils (%) (Auto) 72 42-75 % Lymphocytes (%) (Auto) 23 12-44 % Monocytes (%) (Auto) 4 0-12 % Eosinophils (%) (Auto) 0 0-10 % Basophils (%) (Auto) 1 0-10 % Neutrophils # (Auto) 6.1 1.8-7.8 10^3/uL Lymphocytes # (Auto) 2.0 1.0-4.0 10^3/uL Monocytes # (Auto) 0.3 0.0-1.0 10^3/uL Eosinophils # (Auto) 0.0 0.0-0.3 10^3/uL Basophils # (Auto) 0.1 0.0-0.1 10^3/uL Immature Granulocyte # (Auto) 0.0 0.0-0.1 10^3/uL Venous Blood pH 7.46 H 7.31-7.41 Venous Blood Partial Pressure CO2 38 L 40-52 MMHG Venous Blood HCO3 27 22-28 MMOL/L Sodium Level 132 L 135-145 MMOL/L Potassium Level 4.1 3.6-5.0 MMOL/L Chloride Level 97 L 98-107 MMOL/L Carbon Dioxide Level 23 21-32 MMOL/L Anion Gap 12 5-14 MMOL/L Blood Urea Nitrogen 23 H 7-18 MG/DL Creatinine 1.15 0.60-1.30 MG/DL Estimat Glomerular Filtration Rate 85 BUN/Creatinine Ratio 20 Glucose Level 426 *H 70-105 MG/DL Calcium Level 9.4 8.5-10.1 MG/DL Corrected Calcium 9.2 8.5-10.1 MG/DL Phosphorus Level 2.2 L 2.3-4.7 MG/DL Total Bilirubin 1.6 H 0.1-1.0 MG/DL Aspartate Amino Transf (AST/SGOT) 19 5-34 U/L Alanine Aminotransferase (ALT/SGPT) 28 0-55 U/L Alkaline Phosphatase 85 40-136 U/L Total Protein 7.3 6.4-8.2 GM/DL Albumin 4.3 3.2-4.5 GM/DL Lipase 7 L 8-78 U/L Beta-Hydroxybutyrate (Chem panel) 1.00 H 0.00-0.27 MMOL/L Glucometer 418 *H 286 H 70-110 MG/DL Urine Color YELLOW Urine Clarity CLEAR Urine pH 6.0 5-9 Urine Specific [place] 1.025 H 1.016-1.022 Urine Protein 2+ H NEGATIVE Urine Glucose (UA) 3+ H NEGATIVE Urine Ketones 3+ H NEGATIVE Urine Nitrite NEGATIVE NEGATIVE Urine Bilirubin NEGATIVE NEGATIVE Urine Urobilinogen 0.2 < = 1.0 MG/DL Urine Leukocyte Esterase NEGATIVE NEGATIVE Urine RBC (Auto) 1+ H NEGATIVE Urine RBC NONE /HPF Urine WBC NONE /HPF Urine Crystals NONE /LPF Urine Bacteria NEGATIVE /HPF Urine Casts PRESENT /LPF Urine Hyaline Casts 0-2 H /LPF Urine Mucus NEGATIVE /LPF Urine Culture Indicated NO My Orders Orders - JENNIFER VAUGHAN APRN Comprehensive Metabolic Panel (04/07/23 12:19) Lipase (04/07/23 12:19) Ua Culture If Indicated (04/07/23 12:19) Ed Iv/Invasive Line Start (04/07/23 12:19) Cbc And Automated Diff (04/07/23 12:19) Phosphorus (04/07/23 12:19) Beta Hydroxybutyrate (04/07/23 12:19) Venous Blood Gas (04/07/23 12:19) Ns Iv 1000 Ml (Ns Iv 1000 Ml) (04/07/23 12:30) Promethazine Injection (Promethazine I (04/07/23 12:30) Ns Iv 1000 Ml (Ns Iv 1000 Ml) (04/07/23 13:30) Medications Given in ED Current Medications Medications Dose Ordered Sig/Fer Route Start Time Stop Time Status Last Admin Dose Admin Promethazine HCl 25 mg ONCE ONCE IVP 04/07/23 12:30 04/07/23 12:31 DC 04/07/23 12:27 25 MG Vital Signs/I&O 04/07/23 04/07/23 12:12 14:58 Temp 37.6 37.6 Pulse 77 72 Resp 20 20 B/P (MAP) 150/96 (114) 119/73 Pulse Ox 99 99 O2 Delivery Room Air Room Air Blood Pressure Mean: 114 Progress Progress Note : Progress Note Patient seen and evaluated, resting in bed, mild distress. Based on exam and symptoms, I am concerned for diabetic ketoacidosis. Work-up initiated included CBC, CMP, phosphorus, venous blood gas, beta hydroxybutyrate. IV fluids and promethazine ordered. 1505 Labs reviewed. CBC grossly normal. CMP shows slight decrease sodium 132, decreased chloride of 97, gap normal at 12, CO2 normal 23, BUN elevated 23, creatinine 1.15, GFR 85, blood glucose critically elevated 426, phosphorus slightly low 2.2, total albumin slightly elevated 1.6, beta hydroxybutyrate 1.00, lipase normal. Urinalysis shows urine specific gravity of 1.025, 2+ protein, 3+ glucose, 3+ ketones, 1+ RBCs, negative for infection. After 2 L of IV fluids, glucose down to 286. Reevaluated, reports that his nausea and vomiting has significantly improved. Has not had any vomiting episodes since he has been here. I gave patient a cup of water for p.o. challenge. All results discussed with patient. Discussed plan of care was to discharge patient with a refill of his promethazine, patient also requesting Zofran because he states it works faster. Will prescribe both of these medications. Prior to getting discharge paperwork ready, patient told nursing staff that he wanted to leave. Patient told nursing staff that no one had told him what was going on and that he wanted to leave. I had just been in patient's room prior to this and told him the results and the plan of care. I had also discussed discharge instructions and return precautions with patient. I will go ahead and prescribe the promethazine and Zofran as discussed with patient. Departure Impression Primary Impression: Vomiting Disposition: 01 HOME, SELF-CARE Condition: Stable Departure-Patient Inst. Decision time for Depature: 15:08 Referrals: [facility] [place] ([place]/Family) Primary Care Physician Scripts Promethazine HCl (Promethazine Tablet) 25 Mg Tablet 25 MG PO Q6H PRN for NAUSEA/VOMITING, #20 TAB 0 Refills Prov: JENNIFER VAUGHAN APRN 04/07/23 Ondansetron (Ondansetron Odt) 4 Mg Tab.rapdis 4 MG SL Q4H PRN for NAUSEA/VOMITING, #20 TAB 0 Refills Prov: JENNIFER VAUGHAN APRN 04/07/23 JENNIFER VAUGHAN APRN Apr 07, 2023 12:42
[2023-04-07 12:44] LABS: ALBUMIN 4.3 GM/DL (3.2-4.5)
[2023-04-07 12:45] LABS: POTASSIUM 4.1 MMOL/L (3.6-5.0)
[2023-04-07 12:46] LABS: CALCIUM 9.4 MG/DL (8.5-10.1)
[2023-04-07 12:47] LABS: TOTAL PROTEIN 7.3 GM/DL (6.4-8.2)
[2023-04-07 12:49] LABS: BILIRUBIN,TOTAL 1.6 MG/DL (0.1-1.0)
[2023-04-07 12:50] LABS: PHOSPHORUS 2.2 MG/DL (2.3-4.7)
[2023-04-07 12:51] LABS: CREATININE SERUM 1.15 MG/DL (0.60-1.30)
[2023-04-07 14:03] LABS: BACTERIA,URINE NEGATIVE /HPF; BILIRUBIN,URINE NEGATIVE (NEGATIVE); CLARITY,URINE CLEAR; COLOR,URINE YELLOW; GLUCOSE, URINE (UA) 3+ (NEGATIVE); HYALINE CASTS, URINE 0-2 /LPF; KETONES,URINE 3+ (NEGATIVE); LEUKOCYTE ESTERASE ,URINE NEGATIVE (NEGATIVE); NITRITE,URINE NEGATIVE (NEGATIVE); PROTEIN,URINE 2+ (NEGATIVE)
[2023-04-07 14:58] VITALS: BP 119/73
[2023-04-07] MEDS ORDERED: PROM25TA14 PO (15:09)
[2023-04-07] MEDS ORDERED: ONDA4TAB11 SL (15:09)
== END 2023-04-07 14:58 | disposition home or self-care (01) ==
LOC: EDUNIT# 12:05 → ER 12:07
DX: R11.2 Nausea with vomiting, unspecified (principal); E10.40 Type 1 diabetes mellitus with diabetic neuropathy, unspecified; F17.210 Nicotine dependence, cigarettes, uncomplicated
CPT/HCPCS: 36415; 80053; 81000; 82010; 82805; 82947; 83690; 84100; 85025; 96361; 96374